=== PATIENT | male | born 1955 | race Caucasian/White ===

== ENCOUNTER 2017-07-16 11:23 | Emergency (ER) | payer OTHER, SELFPAY ==
[2017-07-16 11:35] VITALS: BP 166/89; PULSE 79; RESP 18; TEMP 36.8; O2SAT 100
--- NOTE | 2017-07-16 11:46 | ED_ITS ---
HPI - Chest Pain General Chief Complaint: Chest Pain Stated Complaint: POSSIBLE HEART ATTACK Time Seen by Provider: 07/16/17 11:46 Source: patient Mode of arrival: ambulatory Limitations: no limitations History of Present Illness HPI narrative: 62-year-old male with a history of coronary artery disease status post 3 stents the most recent of which was placed between 4 and 5 years ago presents with an episode of chest pain, dizziness, diaphoresis, and mild nausea that started yesterday morning and lasted for approximately 15 min while at work. He was not exerting himself. The symptoms resolved on their own without intervention. He had an episode of chest pain previously and was evaluated, and after stress test the pain was blamed on a hiatal hernia. He also notes that at work several people have been ill and he wondered if he could be ill himself. Upon awakening this morning and not feeling any flu-like symptoms he became more concerned about his heart. He has not had any recurrence of his symptoms. He has a strong preference not to be in the hospital today. His last stress test was at least 2 years ago. He follows with product development carpenter in [place]. He admits to being an active smoker and drinker. He denies a history of hyperlipidemia or hypertension but is on metoprolol and Lipitor due to his heart attack. He is also on a baby aspirin. The chest pain began on the right side yesterday. Related Data Previous Rx's Medication Instructions Recorded atorvastatin [Lipitor] 80 mg PO QDAY #90 tab 10/02/16 metoprolol tartrate 25 mg PO BID #180 tab 10/02/16 Review of Systems Review of Systems All systems reviewed & are unremarkable except as noted in HPI and below Constitutional Denies chills, Denies fever(s), Denies lethargy and Denies weakness Eyes Denies change in vision, Denies eye discharge, Denies irritation and Denies loss of vision ENT Ears, Nose, Mouth, and Throat: Denies change in voice, Denies neck pain and Denies sore throat Cardiovascular Reports chest pain, Reports chest pain at rest, Reports diaphoresis, Denies irregular heart rhythm, Reports lightheadedness, Denies palpitations, Denies dyspnea, Denies dyspnea on exertion and Denies orthopnea Respiratory Denies cough, Denies dyspnea, Denies dyspnea on exertion and Denies wheezing Gastrointestinal Gastrointestinal: Denies abdominal pain, Denies change in bowel habits, Denies diarrhea, Reports nausea and Denies vomiting Genitourinary Denies hematuria, Denies flank pain, Denies urinary incontinence and Denies urinary urgency Musculoskeletal Denies neck pain Integumentary/Breasts Denies pruritus, Denies erythema, Denies rash and Denies wounds Neurologic Denies confusion, Denies loss of vision and Denies weakness Psychiatric Denies anxiety, Denies confusion, Denies depression, Denies homicidal ideation and Denies suicidal ideation Endocrine Denies palpitations Hematologic/Lymphatic Denies easy bruising Allergic/Immunologic Denies wheezing PFSH Surgical History Status post rotator cuff repair Family History Mother Age: 90 Heart attack Social History Smoking Status: Current every day smoker Exam Initial Vital Signs Initial Vital Signs: Vital Signs Temperature 98.3 F 07/16/17 11:35 Pulse Rate 79 07/16/17 11:35 Respiratory Rate 18 07/16/17 11:35 Blood Pressure 166/89 H 07/16/17 11:35 Pulse Oximetry 100 07/16/17 11:35 Const General: cooperative and well developed Nutritional Appearance: well nourished Orientation: alert, awake, oriented x3 and not confused [facility] Head: normocephalic and atraumatic Ears: external ears normal and TM's normal bilaterally Nose: external nose normal and No nasal discharge Face and sinus: sinuses nontender, face symmetric, no sinus tenderness and No dry mucous membranes Mouth: oral mucosae normal and moist mucous membranes Teeth and gingiva: dentition normal Throat: tonsils normal and uvula midline Eyes General: appearance normal, both eyes and all related structures Eyelids: eyelids normal Conjunctivae: conjunctivae normal Sclera: sclerae normal Pupils: PERRL EOM: EOM intact bilaterally Neck Neck: normal visual inspection, trachea midline, No lymphadenopathy, No midline deformity and No JVD Lymphatic: No lymphedema Chest Chest: normal inspection of the chest Resp Effort & Inspection: normal respiratory effort, able to speak in complete sentences, no respiratory distress and no use of accessory muscles Auscultation: clear to auscultation bilaterally, no rales, no rhonchi and no wheezes Cardio Rate: regular rate Rhythm: regular rhythm Heart Sounds: no click, no gallops, no murmurs and no rubs Pulses: normal peripheral pulses GI Inspection: non-distended Palpation: soft, no hepatosplenomegaly, No guarding, No pulsatile mass and No tender Auscultation: normal bowel sounds Back/Spine/Pelvis Back: No CVA tenderness Cervical Spine: cervical ROM normal and No pain with cervical ROM Thoracic/Lumbar Spine: thoracic and lumbar spine normal to inspection Skin General: no rashes or lesions noted, No jaundice and No petechiae Neuro General: alert, oriented x3, gait normal and no focal motor deficits Speech: speech normal Extrem General: full ROM, no clubbing, cyanosis or edema, no pedal edema and no calf tenderness Psych Appearance: well kempt Mental Status: mental status grossly normal Attitude: cooperative Thought Content: normal and suicidality Judgment: judgment good Course Orders Ordered: ED Orders 07/16/17 11:47 CMP [Comprehensive Metabolic Panel] Stat Troponin with CK Cardiac Panel Stat 07/16/17 13:03 XR chest 2V Stat Vital Signs - 8 hr 07/16/17 11:35 07/16/17 12:48 07/16/17 13:37 Temperature 98.3 F Pulse Rate 79 77 77 Respiratory Rate 18 16 17 Blood Pressure 166/89 H Blood Pressure [Left Arm] 107/83 H 111/80 Pulse Oximetry 100 95 99 07/16/17 14:01 Temperature Pulse Rate 75 Respiratory Rate 16 Blood Pressure Blood Pressure [Left Arm] 121/83 H Pulse Oximetry 99 MDM - Chest Pain Differential Diagnosis Likely pneumothorax, stable angina, unstable angina pectoris, atypical chest pain and chest pain Lab Data Result diagrams: 07/16/17 11:47 Lab Results 07/16/17 Range/Units 11:47 Sodium 142 (137-145) mmol/L Potassium 4.2 (3.4-5.1) mmol/L Chloride 102 (98-107) mmol/L Carbon Dioxide 28 (22-32) mmol/L BUN 9 (9-20) mg/dL Creatinine 0.60 L (0.66-1.25) mg/dL Estimated GFR > 60.0 (>60) mL/min BUN/Creatinine Ratio 15.0 (6-22) Glucose 103 (80-110) mg/dL Calcium 9.8 (8.4-10.2) mg/dL Total Bilirubin 0.9 (0.2-1.3) mg/dL AST 44 (17-59) IU/L ALT 37 (21-72) IU/L Alkaline Phosphatase 82 (38-126) U/L Total Creatine Kinase 101 (55-170) U/L CK-MB (CK-2) 1.81 (<2.37) ng/mL CK-MB (CK-2) Rel Index 1.8 (1.5-5.0) % Troponin I < 0.012 (0.01-0.034) ng/mL Total Protein 7.7 (6.3-8.2) g/dL Albumin 4.7 (3.5-5.0) g/dL Globulin 3.0 (1.7-4.1) g/dL Albumin/Globulin Ratio 1.6 (1.0-2.8) Imaging Data Chest x-ray: Radiologist's impression: PROCEDURE: XR CHEST 2V INDICATIONS: chest pain TECHNIQUE: 2 views of the chest were acquired. COMPARISON: [facility], CHEST 1 VIEW, 06/08/2008, 15:53. FINDINGS: Surgical changes and devices: None. Lungs and pleura: No pleural effusions or pneumothorax. Lungs are clear. Mediastinum: Mediastinal contours are normal. Heart size is normal. Bones and chest wall: No suspicious bony abnormalities. Soft tissues appear unremarkable. IMPRESSION: Negative chest. Dictated by: Shahzad Dewitt M.D. on 07/16/2017 at 13:40 Approved by: Shahzad Dewitt M.D. on 07/16/2017 at 13:43 ECG Data Attestation: I personally reviewed and interpreted this ECG as follows: Prior ECG tracings: available for review Interpretation: EKG performed at 11:30 a.m. shows sinus rhythm with a rate of 76. Borderline prolonged [place] interval at 214. No ST elevation or depression. No inverted or abnormal T-waves. No acute ischemia. When compared with previous EKG dated 06/08/08 no significant change MDM Narrative Medical decision making narrative: His cardiac risk score puts him in the moderate category. Even though his troponin EKG are negative here, he has had no active chest pain for 24 hr. He needs an updated stress test and I offered and strongly encouraged that he stay in the hospital to have this performed. He refused to do so and I called his product development carpenter to arrange close follow-up. No evidence of infection today. Dr. Boles , a partner of his product development carpenter who I spoke with will arrange for follow-up stress test in the next couple of days. He agrees patient can be discharged. I discussed the plan for follow-up with patient. All questions answered. Discharge Plan Departure Patient Disposition: Home, Self-Care Clinical Impression: Chest pain Instructions: DI for Chest Pain Activity Restrictions/Additional Instructions: Thank you for trusting is with your care today. Your symptoms from yesterday are concerning for possible cardiac related cause. Because of this you need to have a stress test done in short order in the next couple of days. Dr. Boles is going to arrange for this and you should expect a call later today or tomorrow to set this up. Return to the ER for new or worsening symptoms. Prescriptions: No Action atorvastatin [Lipitor] 80 MG tablet 80 mg PO QDAY Qty: 90 RF: 3 metoprolol tartrate 25 MG tablet 25 mg PO BID Qty: 180 RF: 3 Referrals: dEuar Lara MD [Primary Care Provider] - Chino Boles MD [Non-Staff] -
[2017-07-16 12:07] LABS: Alanine Aminotransferase 37 IU/L (21-72); Albumin 4.7 g/dL (3.5-5.0); Albumin Globulin Ratio 1.6 (1.0-2.8); Alkaline Phosphatase 82 U/L (38-126); Aspartate Aminotransferase 44 IU/L (17-59); Bilirubin Total 0.9 mg/dL (0.2-1.3); Blood Urea Nitrogen 9 mg/dL (9-20); Calcium 9.8 mg/dL (8.4-10.2); Carbon Dioxide 28 mmol/L (22-32); Chloride 102 mmol/L (98-107); Creatine Kinase 101 U/L (55-170); Estimated Glomerular Filt Rate > 60.0 mL/min (>60); Glucose 103 mg/dL (80-110); HEMOLYSIS 21 (0-50); Potassium 4.2 mmol/L (3.4-5.1); Sodium 142 mmol/L (137-145); Total Protein 7.7 g/dL (6.3-8.2)
[2017-07-16 12:23] LABS: CKMB % Relative Index 1.8 % (1.5-5.0); Creatine Kinase MB 1.81 ng/mL (<2.37)
[2017-07-16 12:29] LABS: Troponin I < 0.012 ng/mL (0.01-0.034)
[2017-07-16 12:48] VITALS: BP 107/83; PULSE 77; RESP 16; O2SAT 95
--- NOTE | 2017-07-16 13:03 | DI.RAD.S_ITS ---
PROCEDURE: XR CHEST 2V INDICATIONS: chest pain TECHNIQUE: 2 views of the chest were acquired. COMPARISON: [facility], , CHEST 1 VIEW, 06/08/2008, 15:53. FINDINGS: Surgical changes and devices: None. Lungs and pleura: No pleural effusions or pneumothorax. Lungs are clear. Mediastinum: Mediastinal contours are normal. Heart size is normal. Bones and chest wall: No suspicious bony abnormalities. Soft tissues appear unremarkable. IMPRESSION: Negative chest. Dictated by: Shahzad Dewitt M.D. on 07/16/2017 at 13:40 Approved by: Shahzad Dewitt M.D. on 07/16/2017 at 13:43
[2017-07-16 13:37] VITALS: BP 111/80; PULSE 77; RESP 17; O2SAT 99
[2017-07-16 14:01] VITALS: BP 121/83; PULSE 75; RESP 16; O2SAT 99
[2017-07-16 14:25] VITALS: BP 121/83; PULSE 82; RESP 18; O2SAT 99
== END 2017-07-16 14:25 | disposition home or self-care (01) ==
PROVIDERS: Emergency Provider Emergency Medicine; Family Provider Family Medicine; PCP Family Medicine
DX: R07.89 Other chest pain (principal)
CPT/HCPCS: 36591; 71046; 80053; 82550; 82553; 84484; 93005; 93041; 99283; 99285

== ENCOUNTER → 2017-10-07 13:48 | Outpatient (CLI) | payer OTHER, SELFPAY ==
[2017-10-07 14:37] LABS: Add Manual Diff / Slide Review NO; Basophils Percent Auto 0.8 % (0-2); Eosinophils Percent Auto 1.1 % (2-4); Hematocrit 41.9 % (41-53); Hemoglobin 14.9 g/dL (13.5-17.5); Lymphocytes Percent Auto 22.4 % (25-40); Mean Corpuscular HGB Conc 35.6 % (30-36); Mean Corpuscular Hemoglobin 35.1 PG (26-34); Mean Corpuscular Volume 98.7 fL (80-100); Monocytes Percent Auto 10.5 % (3-14); Neutrophils Absolute Auto 4400 /uL (3000-5900); Neutrophils Percent Auto 65.2 % (50-75); Platelet Count 167 X10^3/uL (150-400); Red Blood Cell Count 4.25 X10^6/uL (4.5-5.9); Red Cell Distribution Width 13.6 % (11.6-14.8); White Blood Cell Count 6.8 X10^3/uL (4.5-11.0)
[2017-10-07 15:26] LABS: Alanine Aminotransferase 36 IU/L (21-72); Albumin 4.6 g/dL (3.5-5.0); Albumin Globulin Ratio 1.8 (1.0-2.8); Alkaline Phosphatase 87 U/L (38-126); Aspartate Aminotransferase 40 IU/L (17-59); BUN Creatinine Ratio 18.8 (6-22); Blood Urea Nitrogen 15 mg/dL (9-20); Calcium 10.1 mg/dL (8.4-10.2); Carbon Dioxide 28 mmol/L (22-32); Chloride 102 mmol/L (98-107); Estimated Glomerular Filt Rate > 60.0 mL/min (>60); Globulin 2.5 g/dL (1.7-4.1); Glucose 93 mg/dL (80-110); HEMOLYSIS < 15 (0-50); Lipase 273 U/L (23-300); Potassium 5.2 mmol/L (3.4-5.1); Sodium 141 mmol/L (137-145); Total Protein 7.1 g/dL (6.3-8.2)
== END ==
PROVIDERS: Family Provider Family Medicine; PCP Family Medicine; Visit Provider Registered Nurse
DX: R10.84 Generalized abdominal pain (principal)
CPT/HCPCS: 36415; 80053; 83013; 83690; 85025

== ENCOUNTER 2018-01-21 13:04 | Emergency (ER) | payer OTHER, SELFPAY ==
[2018-01-21 13:09] VITALS: BP 152/93; PULSE 70; RESP 14; TEMP 36.6; O2SAT 100
--- NOTE | 2018-01-21 13:11 | DI.RAD.S_ITS ---
PROCEDURE: XR CHEST 1V INDICATIONS: chest pain, presyncope TECHNIQUE: One view of the chest was acquired. COMPARISON: [facility], CR, XR CHEST 2V, 07/16/2017, 12:52. FINDINGS: Surgical changes and devices: None. Lungs and pleura: No pleural effusions or pneumothorax. Lungs are clear. Mediastinum: Mediastinal contours appear normal. Heart size is normal. Bones and chest wall: No suspicious bony lesions. Overlying soft tissues appear unremarkable. IMPRESSION: No acute cardiopulmonary disease. Dictated by: Audi Gamez M.D. on 01/21/2018 at 13:35 Approved by: Audi Gamez M.D. on 01/21/2018 at 13:36
[2018-01-21 13:17] LABS: Add Manual Diff / Slide Review NO; Basophils Percent Auto 0.9 % (0-2); Eosinophils Percent Auto 0.9 % (2-4); Hematocrit 45.2 % (41-53); Hemoglobin 15.7 g/dL (13.5-17.5); Lymphocytes Percent Auto 27.5 % (25-40); Mean Corpuscular HGB Conc 34.8 % (30-36); Mean Corpuscular Hemoglobin 34.6 PG (26-34); Mean Corpuscular Volume 99.3 fL (80-100); Monocytes Percent Auto 11.2 % (3-14); Neutrophils Absolute Auto 4100 /uL (3000-5900); Neutrophils Percent Auto 59.5 % (50-75); Platelet Count 143 X10^3/uL (150-400); Red Blood Cell Count 4.55 X10^6/uL (4.5-5.9); White Blood Cell Count 6.8 X10^3/uL (4.5-11.0)
[2018-01-21 13:26] LABS: Alanine Aminotransferase 46 IU/L (21-72); Albumin 4.9 g/dL (3.5-5.0); Albumin Globulin Ratio 1.7 (1.0-2.8); Alkaline Phosphatase 80 U/L (38-126); Aspartate Aminotransferase 52 IU/L (17-59); Bilirubin Total 0.9 mg/dL (0.2-1.3); Blood Urea Nitrogen 14 mg/dL (9-20); Calcium 10.1 mg/dL (8.4-10.2); Carbon Dioxide 24 mmol/L (22-32); Chloride 102 mmol/L (98-107); Creatine Kinase 147 U/L (55-170); Estimated Glomerular Filt Rate > 60.0 mL/min (>60); Globulin 2.9 g/dL (1.7-4.1); Glucose 100 mg/dL (80-110); Lipase 299 U/L (23-300); Potassium 4.4 mmol/L (3.4-5.1); Sodium 141 mmol/L (137-145); Total Protein 7.8 g/dL (6.3-8.2)
[2018-01-21 13:35] VITALS: BP 145/87; PULSE 76; RESP 15; O2SAT 96
[2018-01-21 13:37] LABS: Troponin I < 0.012 ng/mL (0.01-0.034)
[2018-01-21 13:41] LABS: CKMB % Relative Index 1.3 % (1.5-5.0); Creatine Kinase MB 1.93 ng/mL (<2.37); HEMOLYSIS 25 (0-50)
[2018-01-21] MEDS: SODIUM CHLORIDE 0.9% 1,000 ML 1000 ML IV (13:57)
[2018-01-21 14:10] VITALS: BP 142/78; PULSE 73; RESP 10; O2SAT 98
[2018-01-21 14:35] VITALS: BP 154/82; PULSE 72; RESP 17; O2SAT 100
--- NOTE | 2018-01-21 14:45 | ED.SYNCOPE ---
HPI - Syncope General Chief Complaint: Syncope Stated Complaint: stroke sympotums now resolved Time Seen by Provider: 01/21/18 13:11 Source: patient and EMS Mode of arrival: EMS Limitations: no limitations History of Present Illness HPI narrative: Patient is a 62-year-old male presenting after a near syncopal episode. He was at no work at his desk when a co-worker saw him slumped over. They had a difficult time understanding what he was saying that this lasted for very brief amount of time. He said that he felt like he was going to pass out he knew it was going to happen. He had some tunnel vision and blackening of vision he felt his face get very flushed. He had no chest pain heart palpitations. He felt extremely lightheaded. He maybe had some tremors with his hands but did not overall have tonic-clonic movements. No urinary or stool incontinence. He says he has been eating frequently and drinking enough fluid. He did not actually pass out but just felt faint. MD complaint: felt faint and almost passed out Related Data Home Medications Medication Instructions Recorded Confirmed aspirin 81 mg tablet,delayed 81 mg PO DAILY 09/10/17 01/21/18 release lactobacillus combination no.8 3 3,000 mmu cells PO DAILY 11/19/17 01/21/18 billion cell capsule aspirin 325 mg PO .ONCE 01/21/18 01/21/18 atorvastatin [Lipitor] 80 mg PO DAILY 01/21/18 01/21/18 metoprolol tartrate 50 mg PO DAILY 01/21/18 01/21/18 Allergies Allergy/AdvReac Type Severity Reaction Status Date / Time No Known Drug Allergies Allergy Verified 01/21/18 13:12 Review of Systems Review of Systems All systems reviewed & are unremarkable except as noted in HPI and below Constitutional Denies chills, Denies fever(s), Denies headache(s), Denies lethargy and Denies weakness ENT Ears, Nose, Mouth, and Throat: Denies change in voice, Denies dizziness, Denies headache(s), Denies neck pain and Denies sore throat Cardiovascular Reports as per HPI, Denies chest pain, Denies pedal edema, Denies radiating jaw, neck or arm pain, Denies dyspnea and Denies dyspnea on exertion Respiratory Denies cough, Denies dyspnea, Denies dyspnea on exertion and Denies wheezing Gastrointestinal Gastrointestinal: Denies abdominal pain, Denies change in bowel habits, Denies diarrhea, Denies nausea and Denies vomiting Genitourinary Denies hematuria, Denies flank pain, Denies urinary incontinence and Denies urinary urgency Musculoskeletal Denies abnormal gait, Denies myalgias and Denies neck pain Integumentary/Breasts Denies pruritus, Denies erythema, Denies rash and Denies wounds Neurologic Reports as per HPI, Denies abnormal gait, Denies behavioral changes, Denies confusion, Denies dizziness, Denies headache(s), Denies focal weakness, Denies convulsions, Reports tremor(s) and Denies weakness Psychiatric Denies behavioral changes and Denies confusion Allergic/Immunologic Denies wheezing PFSH Medical History CAD (coronary artery disease) (Chronic) Shoulder pain (Chronic) Chicken pox (Resolved 1966) Heart attack (Resolved 2008) Measles (Resolved ~1969) Surgical History Anesthesia (Resolved) History of heart artery stent (Resolved 2008) Status post rotator cuff repair (Resolved) Family History Mother Age: 91 Heart attack Brother No problems noted. Father Cancer Sister No problems noted. Social History Smoking Status: Current every day smoker Exam Initial Vital Signs Initial Vital Signs: Vital Signs Temperature 97.9 F 01/21/18 13:09 Pulse Rate 70 01/21/18 13:09 Respiratory Rate 14 01/21/18 13:09 Blood Pressure 152/93 H 01/21/18 13:09 Pulse Oximetry 100 01/21/18 13:09 GENERAL: Alert well-appearing male no acute distress alert oriented x3 HEENT: Head atraumatic,EOMI, pupils reactive, face symmetric, moist mucous membranes CARDIOVASCULAR: Regular rate and rhythm without murmurs, rubs or gallops. RESPIRATORY: Breath sounds equal bilaterally, no wheezes rales or rhonchi. ABDOMEN: Soft, nontender. Normoactive bowel sounds all 4 quadrants. No guarding or rebound. EXTREMITIES: Normal range of motion, no clubbing or edema. Neurovascularly intact NEUROLOGICAL: Alert and oriented x4.Normal gait and speech. Cranial nerves II through XII grossly intact. Good [id number], good [id number], strength equal bilaterally, no dysarthria or aphasia, sensation in tact to soft touch bilaterally, no visual changes, no facial droop SKIN: Warm, dry, no laceration, no petechiae, no rashes or lesions. Scores NIH Stroke Scale Level of Conciousness: Alert, keenly responsive Ask month/age: Answers both questions correctly. Open/close eyes, close hand: Performs both tasks correctly Best gaze horizontal: Normal Visual salcido: No visual loss Facial palsy: Normal symetrical movement Left arm drift: No drift for full 10 sec Right arm drift: No drift for full 10 sec Left leg drift: No drift for full 10 sec Right leg drift: No drift for full 10 sec Limb ataxia: Absent Sensory on face/arms/legs: Normal, no sensory loss Best language: No aphasia, normal Dysarthria: Normal Extinction or inattention: No abnormality Total NIH Stroke scale score: 0 Course Orders Ordered: ED Orders 01/21/18 13:00 Complete Blood Count AUTO DIFF Stat Comprehensive Metabolic Panel Stat Lipase Stat Troponin & CK Cardiac Panel Stat 01/21/18 13:11 XR chest 1V Stat EKG-12 Lead Stat Discontinued Medications Sodium Chloride (Normal Saline 0.9%) 1,000 mls @ 1,000 mls/hr IV CONT TRES Last Infusion: 01/21/18 15:43 Dose: 0 mls/hr Admin: 01/21/18 13:57 Dose: 1,000 mls/hr Vital Signs - 8 hr 01/21/18 13:09 01/21/18 13:35 01/21/18 14:10 Temperature 97.9 F Pulse Rate 70 76 73 Respiratory Rate 14 15 10 L Blood Pressure 152/93 H Blood Pressure [Left Arm] 145/87 H 142/78 H Pulse Oximetry 100 96 98 01/21/18 14:35 01/21/18 15:05 Temperature Pulse Rate 72 72 Respiratory Rate 17 17 Blood Pressure Blood Pressure [Left Arm] 154/82 H 148/82 H Pulse Oximetry 100 98 MDM - Syncope Lab Data Attestation: I reviewed the patient's lab results. Result diagrams: 01/21/18 13:00 01/21/18 13:00 Lab Results 01/21/18 01/21/18 Range/Units 13:00 13:00 WBC 6.8 (4.5-11.0) X10^3/uL RBC 4.55 (4.5-5.9) X10^6/uL Hgb 15.7 (13.5-17.5) g/dL Hct 45.2 (41-53) % MCV 99.3 (80-100) fL MCH 34.6 H (26-34) PG MCHC 34.8 (30-36) % RDW 14.0 (11.6-14.8) % Plt Count 143 L (150-400) X10^3/uL Neut % (Auto) 59.5 (50-75) % Lymph % (Auto) 27.5 (25-40) % [place] % (Auto) 11.2 (3-14) % Eos % (Auto) 0.9 L (2-4) % Baso % (Auto) 0.9 (0-2) % Neut # (Auto) 4100 (0049-8429) /uL Sodium 141 (137-145) mmol/L Potassium 4.4 (3.4-5.1) mmol/L Chloride 102 (98-107) mmol/L Carbon Dioxide 24 (22-32) mmol/L BUN 14 (9-20) mg/dL Creatinine 0.70 (0.66-1.25) mg/dL Estimated GFR > 60.0 (>60) mL/min BUN/Creatinine Ratio 20.0 (6-22) Glucose 100 (80-110) mg/dL Calcium 10.1 (8.4-10.2) mg/dL Total Bilirubin 0.9 (0.2-1.3) mg/dL AST 52 (17-59) IU/L ALT 46 (21-72) IU/L Alkaline Phosphatase 80 (38-126) U/L Total Creatine Kinase 147 (55-170) U/L CK-MB (CK-2) 1.93 (<2.37) ng/mL CK-MB (CK-2) Rel Index 1.3 L (1.5-5.0) % Troponin I < 0.012 (0.01-0.034) ng/mL Total Protein 7.8 (6.3-8.2) g/dL Albumin 4.9 (3.5-5.0) g/dL Globulin 2.9 (1.7-4.1) g/dL Albumin/Globulin Ratio 1.7 (1.0-2.8) Lipase 299 (23-300) U/L Point of Care Testing Glucose POC 127 Urine Dip Bedside Urine Glucose Negative Bedside Urine Bilirubin - Negative Bedside Urine Ketone - Negative Urine Specific [place] 1.015 Bedside Urine Occult Blood - Negative Bedside Urine pH 7.5 Bedside Urine Protein - Negative Bedside Urine Urobilinogen - Negative Bedside Urine Nitrite - Negative Bedside Urine Leukocytes - Negative Esterase Imaging Data Chest x-ray: Radiologist's impression: [place] [id number] [place] [id number] XRay Report Signed Patient: Lyndon Antonio EMR#: [id number] : 7Acct:[id number] Age/Sex: 62 / MDate of Service: 01/21/18 Loc: ED Accession Number: [id number] Procedure: XR chest 1V Ordering Provider: Ara ePdroza D.O. PROCEDURE: XR CHEST 1V INDICATIONS: chest pain, presyncope TECHNIQUE: One view of the chest was acquired. COMPARISON: [facility], , XR CHEST 2V, 07/16/2017, 12:52. FINDINGS: Surgical changes and devices: None. Lungs and pleura: No pleural effusions or pneumothorax. Lungs are clear. Mediastinum: Mediastinal contours appear normal. Heart size is normal. Bones and chest wall: No suspicious bony lesions. Overlying soft tissues appear unremarkable. IMPRESSION: No acute cardiopulmonary disease. Dictated by: Audi Gamez M.D. on 01/21/2018 at 13:35 Approved by: Audi Gamez M.D. on 01/21/2018 at 13:36 ECG Data Attestation: I personally reviewed and interpreted this ECG as follows: Prior ECG tracings: available for review Interpretation: Normal sinus rhythm rate 73 NE interval to 15, previous NE interval also increased. 1st degree AV block QRS 89, no ST changes no T-wave inversions similar to previous EKG MDM Narrative Medical decision making narrative: Patient's signs and symptoms consistent with a vasovagal episode. He had tunnel vision near-syncope but did not actually pass out. He has a persistent 1st degree AV block. He is ambulatory in the ED feels ready and able to go home. No neurologic deficits to suggest that he needs a head CT. at bedside. I have reviewed findings with her as well. Discharge Plan Departure Patient Disposition: Home Clinical Impression: Vasovagal syncope Discharge Date/Time: 01/21/18 16:02 Interventions: ED Discharge Assessment Last Done: 01/21/18 16:02 Instructions: DI for Syncope in Adults (Fainting) Activity Restrictions/Additional Instructions: *You have been diagnosed with fainting episode *What to do: Blood work x-ray are reassuring today. He likely had a fainting episode. Increase fluid intake eat small frequent meals *Continue to take medications as directed *Follow up with your primary care provider in 2-3 days *Return to ER if you should have recurrent episodes, passing out chest pain, heart palpitations or any new, worsening or concerning symptoms Prescriptions: No Action aspirin [Adult Low Dose Aspirin] 81 mg tablet,delayed release (DR/EC) 81 mg PO DAILY RF: 0 lactobacillus combination no.8 [Adult Probiotic] 3 billion cell capsule 3,000 mmu cells PO DAILY RF: 0 aspirin 325 mg Tablet 325 mg PO .ONCE RF: 0 atorvastatin [Lipitor] 80 mg tablet 80 mg PO DAILY RF: 0 metoprolol tartrate 25 mg tablet 50 mg PO DAILY RF: 0 Referrals: Eduar Lara MD [Primary Care Provider] -
[2018-01-21 15:05] VITALS: BP 148/82; PULSE 72; RESP 17; O2SAT 98
--- NOTE | 2018-01-21 18:47 | ED_ITS ---
HPI - Syncope General Chief Complaint: Syncope Stated Complaint: stroke sympotums now resolved Time Seen by Provider: 01/21/18 13:11 Source: patient and EMS Mode of arrival: EMS Limitations: no limitations History of Present Illness HPI narrative: Patient is a 62-year-old male presenting after a near syncopal episode. He was at no work at his desk when a co-worker saw him slumped over. They had a difficult time understanding what he was saying that this lasted for very brief amount of time. He said that he felt like he was going to pass out he knew it was going to happen. He had some tunnel vision and blackening of vision he felt his face get very flushed. He had no chest pain heart palpitations. He felt extremely lightheaded. He maybe had some tremors with his hands but did not overall have tonic-clonic movements. No urinary or stool incontinence. He says he has been eating frequently and drinking enough fluid. He did not actually pass out but just felt faint. MD complaint: felt faint and almost passed out Related Data Home Medications Medication Instructions Recorded Confirmed aspirin 81 mg tablet,delayed 81 mg PO DAILY 09/10/17 01/21/18 release lactobacillus combination no.8 3 3,000 mmu cells PO DAILY 11/19/17 01/21/18 billion cell capsule aspirin 325 mg PO .ONCE 01/21/18 01/21/18 atorvastatin [Lipitor] 80 mg PO DAILY 01/21/18 01/21/18 metoprolol tartrate 50 mg PO DAILY 01/21/18 01/21/18 Allergies Allergy/AdvReac Type Severity Reaction Status Date / Time No Known Drug Allergies Allergy Verified 01/21/18 13:12 Review of Systems Review of Systems All systems reviewed & are unremarkable except as noted in HPI and below Constitutional Denies chills, Denies fever(s), Denies headache(s), Denies lethargy and Denies weakness ENT Ears, Nose, Mouth, and Throat: Denies change in voice, Denies dizziness, Denies headache(s), Denies neck pain and Denies sore throat Cardiovascular Reports as per HPI, Denies chest pain, Denies pedal edema, Denies radiating jaw , neck or arm pain, Denies dyspnea and Denies dyspnea on exertion Respiratory Denies cough, Denies dyspnea, Denies dyspnea on exertion and Denies wheezing Gastrointestinal Gastrointestinal: Denies abdominal pain, Denies change in bowel habits, Denies diarrhea, Denies nausea and Denies vomiting Genitourinary Denies hematuria, Denies flank pain, Denies urinary incontinence and Denies urinary urgency Musculoskeletal Denies abnormal gait, Denies myalgias and Denies neck pain Integumentary/Breasts Denies pruritus, Denies erythema, Denies rash and Denies wounds Neurologic Reports as per HPI, Denies abnormal gait, Denies behavioral changes, Denies confusion, Denies dizziness, Denies headache(s), Denies focal weakness, Denies convulsions, Reports tremor(s) and Denies weakness Psychiatric Denies behavioral changes and Denies confusion Allergic/Immunologic Denies wheezing PFSH Medical History CAD (coronary artery disease) (Chronic) Shoulder pain (Chronic) Chicken pox (Resolved 1966) Heart attack (Resolved 2008) Measles (Resolved ~1969) Surgical History Anesthesia (Resolved) History of heart artery stent (Resolved 2008) Status post rotator cuff repair (Resolved) Family History Mother Age: 91 Heart attack Brother No problems noted. Father Cancer Sister No problems noted. Social History Smoking Status: Current every day smoker Exam Initial Vital Signs Initial Vital Signs: Vital Signs Temperature 97.9 F 01/21/18 13:09 Pulse Rate 70 01/21/18 13:09 Respiratory Rate 14 01/21/18 13:09 Blood Pressure 152/93 H 01/21/18 13:09 Pulse Oximetry 100 01/21/18 13:09 GENERAL: Alert well-appearing male no acute distress alert oriented x3 HEENT: Head atraumatic,EOMI, pupils reactive, face symmetric, moist mucous membranes CARDIOVASCULAR: Regular rate and rhythm without murmurs, rubs or gallops. RESPIRATORY: Breath sounds equal bilaterally, no wheezes rales or rhonchi. ABDOMEN: Soft, nontender. Normoactive bowel sounds all 4 quadrants. No guarding or rebound. EXTREMITIES: Normal range of motion, no clubbing or edema. Neurovascularly intact NEUROLOGICAL: Alert and oriented x4.Normal gait and speech. Cranial nerves II through XII grossly intact. Good [id number], good [id number], strength equal bilaterally, no dysarthria or aphasia, sensation in tact to soft touch bilaterally, no visual changes, no facial droop SKIN: Warm, dry, no laceration, no petechiae, no rashes or lesions. Scores NIH Stroke Scale Level of Conciousness: Alert, keenly responsive Ask month/age: Answers both questions correctly. Open/close eyes, close hand: Performs both tasks correctly Best gaze horizontal: Normal Visual salcido: No visual loss Facial palsy: Normal symetrical movement Left arm drift: No drift for full 10 sec Right arm drift: No drift for full 10 sec Left leg drift: No drift for full 10 sec Right leg drift: No drift for full 10 sec Limb ataxia: Absent Sensory on face/arms/legs: Normal, no sensory loss Best language: No aphasia, normal Dysarthria: Normal Extinction or inattention: No abnormality Total NIH Stroke scale score: 0 Course Orders Ordered: ED Orders 01/21/18 13:00 Complete Blood Count AUTO DIFF Stat Comprehensive Metabolic Panel Stat Lipase Stat Troponin & CK Cardiac Panel Stat 01/21/18 13:11 XR chest 1V Stat EKG-12 Lead Stat Discontinued Medications Sodium Chloride (Normal Saline 0.9%) 1,000 mls @ 1,000 mls/hr IV CONT TRES Last Infusion: 01/21/18 15:43 Dose: 0 mls/hr Admin: 01/21/18 13:57 Dose: 1,000 mls/hr Vital Signs - 8 hr 01/21/18 13:09 01/21/18 13:35 01/21/18 14:10 Temperature 97.9 F Pulse Rate 70 76 73 Respiratory Rate 14 15 10 L Blood Pressure 152/93 H Blood Pressure [Left Arm] 145/87 H 142/78 H Pulse Oximetry 100 96 98 01/21/18 14:35 01/21/18 15:05 Temperature Pulse Rate 72 72 Respiratory Rate 17 17 Blood Pressure Blood Pressure [Left Arm] 154/82 H 148/82 H Pulse Oximetry 100 98 MDM - Syncope Lab Data Attestation: I reviewed the patient's lab results. Result diagrams: 01/21/18 13:00 01/21/18 13:00 Lab Results 01/21/18 01/21/18 Range/Units 13:00 13:00 WBC 6.8 (4.5-11.0) X10^3/uL RBC 4.55 (4.5-5.9) X10^6/uL Hgb 15.7 (13.5-17.5) g/dL Hct 45.2 (41-53) % MCV 99.3 (80-100) fL MCH 34.6 H (26-34) PG MCHC 34.8 (30-36) % RDW 14.0 (11.6-14.8) % Plt Count 143 L (150-400) X10^3/uL Neut % (Auto) 59.5 (50-75) % Lymph % (Auto) 27.5 (25-40) % Scurry % (Auto) 11.2 (3-14) % Eos % (Auto) 0.9 L (2-4) % Baso % (Auto) 0.9 (0-2) % Neut # (Auto) 4100 (2971-3530) /uL Sodium 141 (137-145) mmol/L Potassium 4.4 (3.4-5.1) mmol/L Chloride 102 (98-107) mmol/L Carbon Dioxide 24 (22-32) mmol/L BUN 14 (9-20) mg/dL Creatinine 0.70 (0.66-1.25) mg/dL Estimated GFR > 60.0 (>60) mL/min BUN/Creatinine Ratio 20.0 (6-22) Glucose 100 (80-110) mg/dL Calcium 10.1 (8.4-10.2) mg/dL Total Bilirubin 0.9 (0.2-1.3) mg/dL AST 52 (17-59) IU/L ALT 46 (21-72) IU/L Alkaline Phosphatase 80 (38-126) U/L Total Creatine Kinase 147 (55-170) U/L CK-MB (CK-2) 1.93 (<2.37) ng/mL CK-MB (CK-2) Rel Index 1.3 L (1.5-5.0) % Troponin I < 0.012 (0.01-0.034) ng/mL Total Protein 7.8 (6.3-8.2) g/dL Albumin 4.9 (3.5-5.0) g/dL Globulin 2.9 (1.7-4.1) g/dL Albumin/Globulin Ratio 1.7 (1.0-2.8) Lipase 299 (23-300) U/L Point of Care Testing Glucose POC 127 Urine Dip Bedside Urine Glucose Negative Bedside Urine Bilirubin - Negative Bedside Urine Ketone - Negative Urine Specific [place] 1.015 Bedside Urine Occult Blood - Negative Bedside Urine pH 7.5 Bedside Urine Protein - Negative Bedside Urine Urobilinogen - Negative Bedside Urine Nitrite - Negative Bedside Urine Leukocytes - Negative Esterase Imaging Data Chest x-ray: Radiologist's impression: [facility] [id number] [place] [id number] XRay Report Signed Patient: Lyndon Antonio EMR#: [id number] : 7Acct:[id number] Age/Sex: 62 / MDate of Service: 01/21/18 Loc: ED Accession Number: [id number] Procedure: XR chest 1V Ordering Provider: Ara Pedroza D.O. PROCEDURE: XR CHEST 1V INDICATIONS: chest pain, presyncope TECHNIQUE: One view of the chest was acquired. COMPARISON: [facility], , XR CHEST 2V, 07/16/2017, 12:52. FINDINGS: Surgical changes and devices: None. Lungs and pleura: No pleural effusions or pneumothorax. Lungs are clear. Mediastinum: Mediastinal contours appear normal. Heart size is normal. Bones and chest wall: No suspicious bony lesions. Overlying soft tissues appear unremarkable. IMPRESSION: No acute cardiopulmonary disease. Dictated by: Audi Gamez M.D. on 01/21/2018 at 13:35 Approved by: Audi Gaemz M.D. on 01/21/2018 at 13:36 ECG Data Attestation: I personally reviewed and interpreted this ECG as follows: Prior ECG tracings: available for review Interpretation: Normal sinus rhythm rate 73 MT interval to 15, previous MT interval also increased. 1st degree AV block QRS 89, no ST changes no T-wave inversions similar to previous EKG MDM Narrative Medical decision making narrative: Patient's signs and symptoms consistent with a vasovagal episode. He had tunnel vision near-syncope but did not actually pass out. He has a persistent 1st degree AV block. He is ambulatory in the ED feels ready and able to go home. No neurologic deficits to suggest that he needs a head CT. at bedside. I have reviewed findings with her as well. Discharge Plan Departure Patient Disposition: Home Clinical Impression: Vasovagal syncope Discharge Date/Time: 01/21/18 16:02 Interventions: ED Discharge Assessment Last Done: 01/21/18 16:02 Instructions: DI for Syncope in Adults (Fainting) Activity Restrictions/Additional Instructions: *You have been diagnosed with fainting episode *What to do: Blood work x-ray are reassuring today. He likely had a fainting episode. Increase fluid intake eat small frequent meals *Continue to take medications as directed *Follow up with your primary care provider in 2-3 days *Return to ER if you should have recurrent episodes, passing out chest pain, heart palpitations or any new, worsening or concerning symptoms Prescriptions: No Action aspirin [Adult Low Dose Aspirin] 81 mg tablet,delayed release (DR/EC) 81 mg PO DAILY RF: 0 lactobacillus combination no.8 [Adult Probiotic] 3 billion cell capsule 3,000 mmu cells PO DAILY RF: 0 aspirin 325 mg Tablet 325 mg PO .ONCE RF: 0 atorvastatin [Lipitor] 80 mg tablet 80 mg PO DAILY RF: 0 metoprolol tartrate 25 mg tablet 50 mg PO DAILY RF: 0 Referrals: Eduar Lara MD [Primary Care Provider] -
== END 2018-01-21 16:02 | disposition home or self-care (01) ==
PROVIDERS: Emergency Provider Emergency Medicine; Family Provider Family Medicine; PCP Family Medicine
DX: R55 Syncope and collapse (principal)
CPT/HCPCS: 36591; 71045; 80053; 81003; 82550; 82553; 83690; 84484; 85025; 93005; 93010; 96360; 96361; 99284; 99285

== ENCOUNTER → 2018-01-23 14:39 | Outpatient (CLI) | payer OTHER, SELFPAY ==
[2018-01-23 16:55] LABS: Cholesterol 212 mg/dL (140-199); HDL Cholesterol 99 mg/dL (40-60); LDL Cholesterol Calculated 77 mg/dL (<100); Magnesium 1.8 mg/dL (1.6-2.3); Triglycerides 178 mg/dL (35-150)
[2018-01-23 17:26] LABS: Thyroid Stimulating Hormone 1.01 uIU/mL (0.47-4.68)
== END ==
PROVIDERS: PCP Family Medicine; Visit Provider Family Medicine
DX: E78.2 Mixed hyperlipidemia (principal); R55 Syncope and collapse
CPT/HCPCS: 36415; 80061; 83735; 84443; G0103

== ENCOUNTER → 2018-05-11 07:51 | Outpatient (CLI) | payer OTHER, SELFPAY ==
[2018-05-11 09:18] LABS: Add Manual Diff / Slide Review NO; Basophils Absolute Auto 100 /uL (0-100); Basophils Percent Auto 1.1 % (0-2); Eosinophils Absolute Auto 100 /uL (0-450); Eosinophils Percent Auto 1.2 % (2-4); Hematocrit 42.8 % (41-53); Hemoglobin 14.9 g/dL (13.5-17.5); Lymphocytes Absolute Auto 1000 /uL (1100-4500); Lymphocytes Percent Auto 18.3 % (25-40); Mean Corpuscular HGB Conc 34.9 % (30-36); Mean Corpuscular Hemoglobin 34.6 PG (26-34); Mean Corpuscular Volume 99.2 fL (80-100); Monocytes Absolute Auto 500 /uL (0-900); Monocytes Percent Auto 10.1 % (3-14); Neutrophils Absolute Auto 3700 /uL (1500-7000); Neutrophils Percent Auto 69.3 % (50-75); Platelet Count 187 X10^3/uL (150-400); Red Blood Cell Count 4.31 X10^6/uL (4.5-5.9); Red Cell Distribution Width 13.7 % (11.6-14.8); White Blood Cell Count 5.3 X10^3/uL (4.5-11.0)
[2018-05-11 09:26] LABS: BUN Creatinine Ratio 18.6 (6-22); Blood Urea Nitrogen 13 mg/dL (9-20); Calcium 9.6 mg/dL (8.4-10.2); Carbon Dioxide 24 mmol/L (22-32); Chloride 103 mmol/L (98-107); Estimated Glomerular Filt Rate > 60.0 mL/min (>60); Glucose 91 mg/dL (80-110); HEMOLYSIS < 15 (0-50); Potassium 4.2 mmol/L (3.4-5.1); Sodium 137 mmol/L (137-145)
== END ==
PROVIDERS: Family Provider Family Medicine; PCP Family Medicine; Visit Provider Nurse Practitioner Gerontology
DX: R42 Dizziness and giddiness (principal); F10.10 Alcohol abuse, uncomplicated
CPT/HCPCS: 36415; 80048; 85025

== ENCOUNTER → 2018-07-07 16:54 | Outpatient (CLI) | payer OTHER, SELFPAY ==
--- NOTE | 2018-07-07 | DI.RAD.S_ITS ---
PROCEDURE: XR CHEST 2V INDICATIONS: LIFE LONG SMOKER TECHNIQUE: 2 views of the chest were acquired. COMPARISON: [facility], CR, XR CHEST 1V, 01/21/2018, 13:24. [facility], CR, XR CHEST 2V, 07/16/2017, 12:52. FINDINGS: Surgical changes and devices: None. Lungs and pleura: Lungs are clear. No pleural effusions or pneumothorax. Mediastinum: Mediastinal contours are normal. Heart size is normal. Bones and chest wall: No suspicious bony abnormalities. Soft tissues appear unremarkable. IMPRESSION: No pneumonia found, no neoplasm suspected. Dictated by: Martin Montanez M.D. on 07/08/2018 at 8:21 Approved by: Martin Montanez M.D. on 07/08/2018 at 8:21
--- NOTE | 2018-07-07 | DI.RAD.S_ITS ---
PROCEDURE: XR CERVICAL SPINE 4V OR 5V INDICATIONS: Cervicalgia TECHNIQUE: 5 views of the cervical spine acquired including both obliques. COMPARISON: [facility], , CERVICAL SPINE 2 OR 3 VIEWS, 08/18/2007, 8:58. FINDINGS: Bones: No fractures or dislocations to the T1 level. Oblique images demonstrate no bony foraminal stenoses. There is a mild degree of degenerative disc disease along the cervical spine, without significant osteophyte formation projecting into the neural foramen on the left but at the C34 level osteophyte formation does impinge on the neural foramen potentially causing right-sided C4 nerve root impingement. Soft tissues: No prevertebral soft tissue swelling. IMPRESSION: The degenerative disc disease along the cervical spine is mild but there is asymmetric C3-4 facet osteoarthritis with neural foraminal impingement on the right at that site. The C4 nerve root likely is impinged upon as a result. Please correlate clinically. Dictated by: Martin Montanez M.D. on 07/08/2018 at 8:13 Approved by: Martin Montanez M.D. on 07/08/2018 at 8:21
== END ==
PROVIDERS: Family Provider Family Medicine; PCP Family Medicine; Visit Provider Chiropractor
DX: M50.30 Other cervical disc degeneration, unspecified cervical region (principal); M47.812 Spondylosis without myelopathy or radiculopathy, cervical region; F17.200 Nicotine dependence, unspecified, uncomplicated
CPT/HCPCS: 71046; 72050

== ENCOUNTER → 2018-11-04 16:06 | Outpatient (CLI) | payer OTHER, SELFPAY ==
--- NOTE | 2018-11-04 16:07 | DI.RAD.S_ITS ---
PROCEDURE: XR CHEST 2V INDICATIONS: cough TECHNIQUE: 2 views of the chest were acquired. COMPARISON: [facility], CR, XR CHEST 2V, 07/07/2018, 17:15. FINDINGS: Surgical changes and devices: None. Lungs and pleura: Small patchy left basilar opacity not seen on comparison study is noted. No focal consolidation. No pleural effusions or pneumothorax. Mediastinum: Mediastinal contours are normal. Heart size is normal. Bones and chest wall: No suspicious bony abnormalities. Soft tissues appear unremarkable. IMPRESSION: There is a new patchy left basilar opacity seen only on the AP view which may represent early developing airspace disease versus atelectasis. Recommend follow up chest radiograph 4-6 weeks after treatment to document resolution of findings and/or return to baseline examination. Dictated by: Willie Justice M.D. on 11/04/2018 at 16:56 Approved by: Willie Justice M.D. on 11/04/2018 at 16:58
== END ==
PROVIDERS: PCP Family Medicine; Visit Provider Family Medicine
DX: R05 Cough (principal)
CPT/HCPCS: 71046

== ENCOUNTER → 2018-11-06 07:39 | Outpatient (CLI) | payer OTHER, SELFPAY ==
[2018-11-06 09:19] LABS: Add Manual Diff / Slide Review NO; Basophils Absolute Auto 100 /uL (0-100); Basophils Percent Auto 1.2 % (0-2); Eosinophils Absolute Auto 100 /uL (0-450); Eosinophils Percent Auto 2.3 % (2-4); Hematocrit 44.3 % (41-53); Hemoglobin 15.3 g/dL (13.5-17.5); Lymphocytes Absolute Auto 1900 /uL (1100-4500); Mean Corpuscular HGB Conc 34.6 % (30-36); Mean Corpuscular Hemoglobin 34.9 PG (26-34); Mean Corpuscular Volume 100.9 fL (80-100); Monocytes Absolute Auto 500 /uL (0-900); Monocytes Percent Auto 8.9 % (3-14); Neutrophils Absolute Auto 3600 /uL (1500-7000); Neutrophils Percent Auto 57.6 % (50-75); Platelet Count 189 X10^3/uL (150-400); Red Blood Cell Count 4.39 X10^6/uL (4.5-5.9); Red Cell Distribution Width 13.9 % (11.6-14.8); White Blood Cell Count 6.2 X10^3/uL (4.5-11.0)
[2018-11-06 09:24] LABS: Alanine Aminotransferase 56 IU/L (21-72); Albumin 4.7 g/dL (3.5-5.0); Albumin Globulin Ratio 1.6 (1.0-2.8); Alkaline Phosphatase 85 U/L (38-126); Aspartate Aminotransferase 59 IU/L (17-59); BUN Creatinine Ratio 14.3 (6-22); Bilirubin Total 0.6 mg/dL (0.2-1.3); Blood Urea Nitrogen 10 mg/dL (9-20); Calcium 9.9 mg/dL (8.4-10.2); Carbon Dioxide 29 mmol/L (22-32); Chloride 101 mmol/L (98-107); Cholesterol 209 mg/dL (140-199); Estimated Glomerular Filt Rate > 60.0 mL/min (>60); Globulin 2.9 g/dL (1.7-4.1); Glucose 87 mg/dL (80-110); HDL Cholesterol 93 mg/dL (40-60); HEMOLYSIS < 15 (0-50); LDL Cholesterol Calculated 94 mg/dL (<100); Potassium 5.2 mmol/L (3.4-5.1); Sodium 141 mmol/L (137-145); Total Protein 7.6 g/dL (6.3-8.2); Triglycerides 112 mg/dL (35-150)
[2018-11-06 09:54] LABS: Prostate Specific Antigen Scrn 0.724 ng/mL (0.1-4.0)
[2018-11-06 09:56] LABS: Thyroid Stimulating Hormone 0.98 uIU/mL (0.47-4.68)
== END ==
PROVIDERS: PCP Family Medicine; Visit Provider Family Medicine
DX: E78.2 Mixed hyperlipidemia (principal)
CPT/HCPCS: 36415; 80053; 80061; 84443; 85025; G0103

== ENCOUNTER → 2019-01-29 13:17 | Outpatient (CLI) | payer OTHER, SELFPAY ==
--- NOTE | 2019-01-29 13:18 | DI.RAD.S_ITS ---
PROCEDURE: XR CHEST 2V INDICATIONS: abnormal chest xray TECHNIQUE: 2 views of the chest were acquired. COMPARISON: [facility], , XR CHEST 2V, 11/04/2018, 16:15. [facility], , XR CHEST 2V, 07/07/2018, 17:15. FINDINGS: Surgical changes and devices: None. Lungs and pleura: Lungs are clear. No pleural effusions or pneumothorax. Mediastinum: Mediastinal contours are normal. Heart size is normal. Bones and chest wall: No suspicious bony abnormalities. Soft tissues appear unremarkable. IMPRESSION: Normal for age, no pneumonia or neoplasm is seen.. Dictated by: Martin Montanez M.D. on 01/29/2019 at 14:11 Approved by: Martin Montanez M.D. on 01/29/2019 at 14:11
== END ==
PROVIDERS: PCP Family Medicine; Visit Provider Family Medicine
DX: R93.89 Abnormal findings on diagnostic imaging of other specified body structures (principal)
CPT/HCPCS: 71046

== ENCOUNTER → 2019-04-02 07:36 | Outpatient (CLI) | payer BC, SELFPAY ==
[2019-04-02 08:13] LABS: Add Manual Diff / Slide Review NO; Basophils Absolute Auto 0 /uL (0-100); Basophils Percent Auto 0.8 % (0-2); Eosinophils Absolute Auto 100 /uL (0-450); Eosinophils Percent Auto 2.6 % (2-4); Hematocrit 45.6 % (41-53); Lymphocytes Absolute Auto 1500 /uL (1100-4500); Lymphocytes Percent Auto 32.5 % (25-40); Mean Corpuscular Hemoglobin 34.8 PG (26-34); Mean Corpuscular Volume 99.3 fL (80-100); Monocytes Absolute Auto 600 /uL (0-900); Monocytes Percent Auto 12.4 % (3-14); Neutrophils Absolute Auto 2400 /uL (1500-7000); Neutrophils Percent Auto 51.7 % (50-75); Platelet Count 170 X10^3/uL (150-400); Red Cell Distribution Width 14.3 % (11.6-14.8); White Blood Cell Count 4.7 X10^3/uL (4.5-11.0)
[2019-04-02 08:26] LABS: Alanine Aminotransferase 46 IU/L (<50); Albumin Globulin Ratio 1.6 (1.0-2.8); Alkaline Phosphatase 78 U/L (38-126); Aspartate Aminotransferase 62 IU/L (17-59); BUN Creatinine Ratio 16.3 (6-22); Bilirubin Total 0.7 mg/dL (0.2-1.3); Blood Urea Nitrogen 13 mg/dL (9-20); Calcium 10.2 mg/dL (8.4-10.2); Carbon Dioxide 27 mmol/L (22-32); Chloride 105 mmol/L (98-107); Estimated Glomerular Filt Rate > 60.0 mL/min (>60); Globulin 3.2 g/dL (1.7-4.1); Glucose 96 mg/dL (80-110); HEMOLYSIS < 15 (0-50); Potassium 5.1 mmol/L (3.4-5.1); Sodium 143 mmol/L (137-145); Total Protein 8.2 g/dL (6.3-8.2)
[2019-04-02 08:56] LABS: Testosterone 699 ng/dL (71.8-623)
[2019-04-02 09:17] LABS: Thyroid Stimulating Hormone 1.03 uIU/mL (0.47-4.68)
== END ==
PROVIDERS: PCP Family Medicine; Referring Provider Family Medicine; Visit Provider Family Medicine
DX: Z13.29 Encounter for screening for other suspected endocrine disorder (principal); E78.2 Mixed hyperlipidemia; R53.83 Other fatigue
CPT/HCPCS: 36415; 80053; 84403; 84443; 85025

== ENCOUNTER → 2019-06-25 08:35 | Outpatient (CLI) | payer BC, SELFPAY ==
--- NOTE | 2019-06-25 08:38 | DI.US.S_ITS ---
PROCEDURE: US ABD AORTA ANEURYSM SCREEN INDICATIONS: BACK PAIN TECHNIQUE: Real time scanning was performed of the aorta and iliac arteries, with image documentation. COMPARISON: None. FINDINGS: Aorta: Proximal aortic diameter measures 1.7 cm. Mid-aorta measures 1.6 cm. Distal aortic diameter is 1.6 cm. Iliac arteries: Right common iliac artery measures 0.9 cm. Left common iliac artery measures 1 cm. IMPRESSION: Negative for aneurysm. Dictated by: Matteo Beltran M.D. on 06/25/2019 at 9:02 Approved by: Matteo Beltran M.D. on 06/25/2019 at 9:03
== END ==
PROVIDERS: PCP Family Medicine; Referring Provider Family Medicine; Visit Provider Family Medicine
DX: Z13.6 Encounter for screening for cardiovascular disorders (principal); M54.9 Dorsalgia, unspecified; F17.200 Nicotine dependence, unspecified, uncomplicated
CPT/HCPCS: 76706

== ENCOUNTER → 2019-07-13 08:20 | Outpatient (CLI) | payer BC, SELFPAY ==
--- NOTE | 2019-07-13 08:21 | DI.MRI.S_ITS ---
PROCEDURE: MR LUMBAR SPINE WO CON INDICATIONS: Back pain TECHNIQUE: Noncontrast sagittal T1 spin echo and T2 fast echo, sagittal STIR, axial T1 and T2 fast spin echo through the lumbar spine. In cases with scoliosis, additional coronal T2 fast spin echo may be performed. COMPARISON: [facility], CR, XR LUMBAR SPINE WITH OLBIQUES PLUS FLEXION EXTENSION, 07/08/2019, 10:32. FINDINGS: Image quality: Excellent. Alignment and Curvature: There is normal bony alignment. Bone Marrow: Marrow is of normal overall signal. No acute vertebral body compression fractures. Spinal Cord: Conus medullaris terminates at the L1-L2 level. Visualized cord demonstrates normal signal and size. Paraspinous Soft Tissues: No paravertebral masses. T12-L1: No canal stenosis or foraminal stenosis. L1-L2: Normal appearance. L2-L3: Mild disc bulge. No canal stenosis or foraminal stenosis. L3-L4: Mild disc bulge. Mild facet and ligament hypertrophy. No canal stenosis or foraminal stenosis. L4-L5: There is a far left lateral foraminal disc extrusion or free fragment impinging on the left L4 nerve root far laterally. Mild posterior disc bulge. Facet and ligament hypertrophy. Mild canal stenosis. L5-S1: Mild central posterior disc protrusion indenting on the thecal sac. The left S1 nerve root is abutted in the left lateral recess. Facet hypertrophy. No foraminal stenosis. IMPRESSION: 1. At L4-L5, there is a far left lateral disc extrusion or free disc fragment impinging upon the left L4 nerve root far laterally in the left foramen.. Question: Does this patient have left L4 radiculopathy? 2. Also at L4-L5, there is mild canal stenosis. 3. L5-S1 there is a mild central posterior disc protrusion which abuts but does not displace the left S1 nerve root in the left lateral recess. Dictated by: Jaron Larsen M.D. on 07/13/2019 at 10:06 Approved by: Jaron Larsen M.D. on 07/13/2019 at 10:12
== END ==
PROVIDERS: PCP Family Medicine; Referring Provider Physical Medicine & Rehabilitation; Visit Provider Physical Medicine & Rehabilitation
DX: M51.26 Other intervertebral disc displacement, lumbar region (principal); M51.27 Other intervertebral disc displacement, lumbosacral region; M48.061 Spinal stenosis, lumbar region without neurogenic claudication
CPT/HCPCS: 72148

== ENCOUNTER 2019-12-02 17:33 | Inpatient (IN) | payer BC, SELFPAY ==
[2019-12-02] VITALS (18 sets, daily range): BP systolic 135–187; BP diastolic 82–103; PULSE 103–121; RESP 14–30; TEMP 36.9–37.3; O2SAT 91–98
[2019-12-02] MEDS: LORazepam 2 MG/ML INJ 1 MG IV (17:58)
--- NOTE | 2019-12-02 17:59 | DI.CT.S_ITS ---
PROCEDURE: CT HEAD/BRAIN WO CON INDICATIONS: new onset seizure TECHNIQUE: Noncontrast 4.5 mm thick angled axial sections acquired from the foramen magnum to the vertex, with coronal and sagittal reformats. For radiation dose reduction, the following was used: automated exposure control, adjustment of mA and/or kV according to patient size. COMPARISON: None. FINDINGS: Image quality: Excellent. CSF spaces: Basal cisterns are patent. No extra-axial fluid collections. The ventricles are symmetric in size and shape. Brain: No acute intracranial hemorrhage or mass effect. A possible small area of hypoattenuation is seen at the anterior aspect of the medulla measuring 8 x 7 mm (image 6 of series 2) that could be related to streak artifact from the adjacent dense skull base, but a small parenchymal lesion or subacute to chronic infarct is not excluded. There is cerebral volume loss for age, with resultant ventricular and sulcal prominence. There are periventricular and deep white matter chronic small vessel ischemic changes. There is intracranial internal carotid artery atherosclerosis. Skull and face: Calvarium and visualized facial bones appear intact, without suspicious lesions. Sinuses: A mucous retention cyst or polyp is seen in the left maxillary sinus. The remaining visualized paranasal sinuses are clear. The mastoid air cells are clear. IMPRESSION: 1. Possible small hypoattenuating lesion at the anterior aspect of the lower medulla may be related to streak artifact from the adjacent skull base, but a focal white matter lesion or subacute to chronic infarct is not excluded. Recommend correlation with neurologic findings. MRI may be obtained for further evaluation. 2. No acute intracranial hemorrhage or mass effect. Dictated by: Roge Rapp M.D. on 12/02/2019 at 18:43 Approved by: Roge Rapp M.D. on 12/02/2019 at 18:53
[2019-12-02 18:00] LABS: Add Manual Diff / Slide Review NO; Basophils Absolute Auto 0 /uL (0-100); Basophils Percent Auto 0.3 % (0-2); Eosinophils Absolute Auto 0 /uL (0-450); Hematocrit 45.5 % (41-53); Hemoglobin 15.4 g/dL (13.5-17.5); Lymphocytes Absolute Auto 1500 /uL (1100-4500); Lymphocytes Percent Auto 13.2 % (25-40); Mean Corpuscular HGB Conc 33.8 % (30-36); Mean Corpuscular Hemoglobin 35.1 PG (26-34); Monocytes Absolute Auto 1100 /uL (0-900); Neutrophils Absolute Auto 8400 /uL (1500-7000); Neutrophils Percent Auto 76.5 % (50-75); Platelet Count 101 X10^3/uL (150-400); Red Blood Cell Count 4.38 X10^6/uL (4.5-5.9); Red Cell Distribution Width 13.6 % (11.6-14.8)
--- NOTE | 2019-12-02 18:03 | ED.RECABL ---
HPI - Recheck/Abnormal Lab/Rx General Chief Complaint: Seizure Stated Complaint: Stop ETOH 2 days ago Time Seen by Provider: 12/02/19 17:46 Source: EMS Mode of arrival: EMS Limitations: no limitations History of Present Illness HPI narrative: 64-year-old male daily smoker and daily drinker with history of hypertension and hyperlipidemia as well as chronic back pain presents by EMS for signs and symptoms consistent with alcohol withdrawal. He had been drinking between a pt and a 5th every day up until 2 days ago when he quit, largely cold turkey, after discussions with his . There was no involvement of a physician. He has been drinking heavily for upwards of 30 years and to her knowledge she states he has never tried quitting before. He has never been through alcohol withdrawals and has never had seizures. He denies any recent injury. He denies any dietary change. Prior to arrival he was feeling tremulous, agitated, nauseated with the headache. Initial visit (ago): hour(s) Related Data Home Medications Medication Instructions Recorded Confirmed aspirin 81 mg tablet,delayed 81 mg PO DAILY 09/10/17 12/03/19 release Previous Rx's Medication Instructions Recorded atorvastatin 80 mg tablet 80 mg PO DAILY #90 tab 11/04/18 metoprolol tartrate 25 mg tablet 50 mg PO DAILY #180 tab 11/04/18 Allergies Allergy/AdvReac Type Severity Reaction Status Date / Time No Known Drug Allergies Allergy Verified 12/02/19 17:58 Review of Systems Constitutional Constitutional: Denies chills, Denies fatigue, Denies fever(s), Denies frequent falls, Reports headache(s), Denies lethargy and Reports weakness Eyes Eyes: Denies change in vision, Denies eye discharge, Denies irritation and Denies loss of vision ENT Ears, Nose, Mouth, and Throat: Denies change in voice, Denies dizziness, Reports headache(s), Denies neck pain, Denies sore throat and Denies throat swelling Cardiovascular Cardiovascular: Denies chest pain, Denies irregular heart rhythm, Denies lightheadedness, Denies palpitations, Denies dyspnea, Denies dyspnea on exertion and Denies orthopnea Respiratory Respiratory: Denies cough, Denies dyspnea, Denies dyspnea on exertion and Denies wheezing Gastrointestinal Gastrointestinal: Reports abdominal pain, Denies change in bowel habits, Denies diarrhea, Reports nausea and Denies vomiting Musculoskeletal Musculoskeletal: Denies neck pain and Denies numbness Integumentary/Breasts Skin/Breast: Denies pruritus, Denies erythema, Denies rash and Denies wounds Neurologic Neurologic: Denies behavioral changes, Reports confusion, Denies dizziness, Denies frequent falls, Reports headache(s), Denies loss of vision, Denies numbness and Reports weakness Psychiatric Psychiatric: Reports anxiety, Denies behavioral changes, Reports confusion, Denies depression, Denies homicidal ideation and Denies suicidal ideation Endocrine Endocrine: Denies fatigue, Denies flushing and Denies palpitations Hematologic/Lymphatic Hematologic/Lymphatic: Denies easy bruising Allergic/Immunologic Allergic/Immunologic: Denies urticaria, Denies throat swelling and Denies wheezing Patient History Medical History (Updated 12/02/19 @ 22:37 by Ramez Reed DO) Alcoholism (Acute) CAD (coronary artery disease) (Chronic) Chicken pox (Resolved 1966) Heart attack (Resolved 2008) Measles (Resolved ~1969) Rheumatoid arthritis (Acute) Shoulder pain (Chronic) Surgical History Anesthesia (Resolved) History of heart artery stent (Resolved 2008) Status post rotator cuff repair (Resolved) Family History Mother Age: 93 Heart attack Brother No problems noted. Father Cancer Sister No problems noted. Social History household members: spouse Smoking Status: Current every day smoker alcohol intake: current Smoking Status: Current every day smoker alcohol intake frequency: 3 or more drinks per day Substance Use Type: does not use Exam Narrative Exam Narrative: GENERAL: [64] year old patient appears stated age. Well-nourished, well-developed patient, in mild distress. Resting comfortably HEAD: Atraumatic. Normocephalic. EYES: Pupils equal round and reactive. Extraocular motions intact. No scleral icterus. No injection or drainage. ENT: Nose without bleeding, purulent drainage. Throat without erythema, tonsillar hypertrophy or exudate. Airway patent. NECK: Trachea midline. Non tender CARDIOVASCULAR: Regular rate and rhythm without murmurs, gallops, or rubs. RESPIRATORY: Clear to auscultation. Breath sounds equal bilaterally. No wheezes, rales, or rhonchi. GASTROINTESTINAL: Abdomen soft, non-tender, nondistended. EXTREMITIES: No edema or joint tenderness. BACK: Nontender without deformity or crepitance. No flank tenderness. NEURO: AOx3. SKIN: No rash or erythema of visible areas Initial Vital Signs Initial Vital Signs: Vital Signs Temperature 98.5 F 12/02/19 17:38 Pulse Rate 120 H 12/02/19 17:38 Respiratory Rate 30 H 12/02/19 17:38 Blood Pressure 187/93 H 12/02/19 17:38 Pulse Oximetry 95 12/02/19 17:38 Course Orders Ordered: ED Orders 12/02/19 17:50 Complete Blood Count AUTO DIFF Stat Comprehensive Metabolic Panel Stat Ethanol (ETOH) Stat Lipase Stat Magnesium Stat 12/02/19 17:59 CT head/brain wo con Stat 12/02/19 19:01 CT angio head and neck Stat 12/02/19 21:03 Urine Drug Screen, Rapid Stat Aspirin (Aspirin Ec) 81 mg PO DAILY TRES Atorvastatin Calcium (Lipitor) 80 mg PO BEDTIME TRES Bisacodyl (Dulcolax) 10 mg PO DAILY PRN PRN Reason: Constipation Enoxaparin Sodium (Lovenox) 40 mg SUBCUT DAILY [facility] Folic Acid (Folic Acid) 1 mg PO DAILY [facility] Dextrose/Sodium Chloride (Dextrose 5%-0.45% Ns) 1,000 mls @ 100 mls/hr IV CONT TRES Last Admin: 12/02/19 21:59 Dose: 100 mls/hr Documented by: RACHID Magnesium Sulfate 2 gm/ Folic Acid 1 mg/ Thiamine HCl 100 mg / Multivitamins 10 ml/ Sodium Chloride 1,015.2 mls @ 125 mls/hr IV NOW ONE Stop: 12/03/19 05:42 Last Admin: 12/02/19 22:54 Dose: 125 mls/hr Documented by: RACHID Lorazepam (Ativan) 0 mg IV [id number] PRN; Protocol PRN Reason: Alcohol Withdrawal Last Admin: 12/02/19 22:04 Dose: 1 mg Documented by: RACHID Metoprolol Tartrate (Lopressor) 50 mg PO DAILY [facility] Multivitamins (Tab-A-Alok) 1 tab PO DAILY [facility] Naloxone HCl (Narcan) 0.2 mg IV Q2MIN PRN PRN Reason: Opiate Reversal Thiamine HCl (Vitamin B-1) 100 mg PO DAILY TRES Stop: 12/05/19 09:01 Last Admin: 12/02/19 22:04 Dose: 100 mg Documented by: RACHID Discontinued Medications Lorazepam (Ativan) 1 mg IV NOW ONE Stop: 12/02/19 17:47 Last Admin: 12/02/19 17:58 Dose: 1 mg Documented by: VIOLA Phenobarbital (Phenobarbital) 260 mg IV NOW ONE Stop: 12/02/19 17:48 Last Admin: 12/02/19 18:06 Dose: 260 mg Documented by: VIOLA Thiamine HCl (Vitamin B-1) 100 mg IV NOW ONE Stop: 12/02/19 18:00 Last Admin: 12/02/19 18:07 Dose: 100 mg Documented by: VIOLA Reevaluation(s) Reevaluation #1: Shortly after arrival patient fine to have tonic-clonic seizure. Ativan and phenobarb given, seizure resolved Consultations Consultation #1: discussed with Dr. Silva who is happy to accept on behalf of Dr. Lara. Vital Signs Vital signs: Vital Signs - 8 hr 12/02/19 17:38 12/02/19 17:58 12/02/19 18:00 Temperature 98.5 F Pulse Rate 120 H 119 H 121 H Respiratory Rate 30 H 24 Blood Pressure 187/93 H 146/84 H Pulse Oximetry 95 94 94 12/02/19 18:44 12/02/19 19:00 12/02/19 19:36 Temperature Pulse Rate 116 H 113 H 103 H Respiratory Rate 22 19 20 Blood Pressure 145/91 H 144/89 H 163/90 H Pulse Oximetry 97 98 98 12/02/19 20:00 12/02/19 20:30 Temperature Pulse Rate 110 H 112 H Respiratory Rate 20 21 Blood Pressure 160/91 H 143/90 H Pulse Oximetry 94 93 MDM - Recheck/Abnormal Lab/Rx Lab Data Result diagrams: 12/02/19 17:50 12/02/19 17:50 Labs: Lab Results 12/02/19 12/02/19 12/02/19 Range/Units 17:50 17:50 17:50 WBC 11.0 (4.5-11.0) X10^3/uL RBC 4.38 L (4.5-5.9) X10^6/uL Hgb 15.4 (13.5-17.5) g/dL Hct 45.5 (41-53) % MCV 104.0 H (80-100) fL MCH 35.1 H (26-34) PG MCHC 33.8 (30-36) % RDW 13.6 (11.6-14.8) % Plt Count 101 L (150-400) X10^3/uL Neut % (Auto) 76.5 H (50-75) % Lymph % (Auto) 13.2 L (25-40) % Sullivan % (Auto) 10.0 (3-14) % Eos % (Auto) 0.0 L (2-4) % Baso % (Auto) 0.3 (0-2) % Neut # (Auto) 8400 H (3278-2264) /uL Lymph # (Auto) 1500 (3780-5373) /uL Sullivan # (Auto) 1100 H (0-900) /uL Eos # (Auto) 0 (0-450) /uL Baso # (Auto) 0 (0-100) /uL Sodium 139 (137-145) mmol/L Potassium 4.2 (3.4-5.1) mmol/L Chloride 102 (98-107) mmol/L Carbon Dioxide 14 L (22-32) mmol/L BUN 10 (9-20) mg/dL Creatinine 0.72 (0.66-1.25) mg/dL Estimated GFR > 60.0 (>60) mL/min BUN/Creatinine Ratio 13.9 (6-22) Glucose 154 H (80-110) mg/dL Calcium 9.9 (8.4-10.2) mg/dL Magnesium 1.9 (1.6-2.3) mg/dL Total Bilirubin 1.2 (0.2-1.3) mg/dL AST 195 H (17-59) IU/L ALT 155 H (<50) IU/L Alkaline Phosphatase 100 (38-126) U/L Total Protein 8.7 H (6.3-8.2) g/dL Albumin 5.3 H (3.5-5.0) g/dL Globulin 3.4 (1.7-4.1) g/dL Albumin/Globulin Ratio 1.6 (1.0-2.8) Lipase 253 (23-300) U/L Ethyl Alcohol < 10 ( - 10) mg/dL Point of Care Testing Glucose POC 125 Imaging Data CTA Head/Neck: Radiologist's Impression: 6 Ramez Reed DO Find Patient Imaging - Lyndon Antonio 64 M 1955 ACTIVITY DATE EXAM STATUS AUTHOR 12/02/19 19:01 Signed Roge Rapp 12/02/19 17:[address] [address] [address] Scan Report Signed Patient: Lyndon Antonio EMR#: [id number] : 7Acct:[id number] Age/Sex: 64 / MDate of Service: 12/02/19 Loc: ED Accession Number: [id number] Procedure: CT angio head and neck Ordering Provider: Ramez Reed D.O. PROCEDURE: CT ANGIO HEAD AND NECK INDICATIONS: abnormal finding on head CT TECHNIQUE: Pre-contrast 4.5 mm thick sections acquired from the foramen magnum to the vertex. After the administration of intravenous contrast, 1 mm thick sections acquired from the aortic arch through the [place] of [place]. Post-contrast 4.5 mm thick sections then re-acquired from the foramen magnum to the vertex. 3-dimensional ctbzddi-zuuzsdbct-urivxodcdm (MIP) and/or volume rendering reformats were acquired of the central intracranial vasculature and neck separately. COMPARISON: None. FINDINGS: Image quality: Excellent. BRAIN: CSF spaces: Ventricles are normal in size and shape. Basal cisterns are patent. No extra-axial fluid collections. Brain: No midline shift. No acute intracranial hemorrhage or mass effect. Scattered hypodensities are again seen in the subcortical and periventricular white matter, most compatible with mild chronic microvascular ischemic changes. The area of hypodensity at the ventral aspect of the lower medulla does not appear significantly changed, and again has a nonspecific appearance. Skull and face: Calvarium and facial bones appear intact, without suspicious lesions. Orbits appear normal. Sinuses: A mucous retention cyst or polyp is seen in the left maxillary sinus. The paranasal sinuses are otherwise clear. The mastoid air cells are clear. HEAD CT ANGIOGRAPHY: Anterior circulation: Intracranial internal carotid arteries demonstrate mild atherosclerotic calcifications without hemodynamically significant stenosis. The flow within the paired anterior cerebral arteries is normal and symmetric. The flow within the middle cerebral arteries is normal and symmetric. The anterior communicating artery is seen. No aneurysms are seen. Posterior circulation: Visualized portions of the vertebral arteries demonstrate normal caliber, and join to form a normal appearing basilar artery. Flow within the posterior cerebral arteries is normal and symmetric. No aneurysms are seen. NECK CT ANGIOGRAPHY: Carotid system: The great vessels demonstrate a conventional anatomy as they arise from the aortic arch. Mild atherosclerotic calcifications are seen in the aortic arch. The origins of the common carotid arteries appear patent. The common carotid arteries demonstrate normal caliber and courses. Calcified atherosclerotic plaque is seen at the right carotid bifurcation resulting in mild less than 50% stenosis. There is minimal calcified atherosclerotic plaque at the left carotid bifurcation. The internal carotid arteries demonstrate normal calibers and courses. Posterior circulation: The origins of the vertebral arteries both appear widely patent. The more superior extracranial portions of both vertebral arteries also demonstrate normal courses and calibers. They join to form a normal appearing basilar artery. Soft tissues: There is mild centrilobular and paraseptal emphysema in the lung apices bilaterally. These soft tissues of the neck demonstrate no acute abnormality. Bones: No suspicious bony lesions. Mild multilevel degenerative changes are seen in the cervical spine. IMPRESSION: 1. No hemodynamically significant intracranial arterial stenosis or occlusion. No intracranial aneurysm. 2. Mild calcified atherosclerotic plaque at the bilateral carotid bifurcations results in mild, less than 50% stenosis. 3. Stable small hypodensity in the ventral medulla is nonspecific. Correlation with MRI is recommended when feasible. Any quantitative measurements of stenosis were performed using NASCET criteria. Dictated by: Roge Rapp M.D. on 12/02/2019 at 19:43 Approved by: Roge Rapp M.D. on 12/02/2019 at 19:56 CT scan - head: Radiologist's Impression: Lyndon Antonio Susan 64 M [address] [address] [address] Scan Report Signed Patient: Lyndon Antonio EMR#: [id number] : 1955cct:[id number] Age/Sex: 64 / MDate of Service: 12/02/19 Loc: ED Accession Number: [id number] Procedure: CT head/brain wo con Ordering Provider: Ramez Reed D.O. PROCEDURE: CT HEAD/BRAIN WO CON INDICATIONS: new onset seizure TECHNIQUE: Noncontrast 4.5 mm thick angled axial sections acquired from the foramen magnum to the vertex, with coronal and sagittal reformats. For radiation dose reduction, the following was used: automated exposure control, adjustment of mA and/or kV according to patient size. COMPARISON: None. FINDINGS: Image quality: Excellent. CSF spaces: Basal cisterns are patent. No extra-axial fluid collections. The ventricles are symmetric in size and shape. Brain: No acute intracranial hemorrhage or mass effect. A possible small area of hypoattenuation is seen at the anterior aspect of the medulla measuring 8 x 7 mm (image 6 of series 2) that could be related to streak artifact from the adjacent dense skull base, but a small parenchymal lesion or subacute to chronic infarct is not excluded. There is cerebral volume loss for age, with resultant ventricular and sulcal prominence. There are periventricular and deep white matter chronic small vessel ischemic changes. There is intracranial internal carotid artery atherosclerosis. Skull and face: Calvarium and visualized facial bones appear intact, without suspicious lesions. Sinuses: A mucous retention cyst or polyp is seen in the left maxillary sinus. The remaining visualized paranasal sinuses are clear. The mastoid air cells are clear. IMPRESSION: 1. Possible small hypoattenuating lesion at the anterior aspect of the lower medulla may be related to streak artifact from the adjacent skull base, but a focal white matter lesion or subacute to chronic infarct is not excluded. Recommend correlation with neurologic findings. MRI may be obtained for further evaluation. 2. No acute intracranial hemorrhage or mass effect. Dictated by: Roge Rapp M.D. on 12/02/2019 at 18:43 Approved by: Roge Rapp M.D. on 12/02/2019 at 18:53 Discharge Plan Departure Patient Disposition: Admitted As Inpatient Clinical Impression: Alcohol withdrawal seizure Qualifiers: Complication of substance-induced condition: with delirium Qualified Code(s): F10.231 - Alcohol dependence with withdrawal delirium Discharge Date/Time: 12/02/19 22:20 Admit Date/Time: 12/02/19 20:44 Admit Provider: Jared Silva
[2019-12-02] MEDS: PHENobarbital 65 MG/ML VIAL 260 MG IV (18:06)
[2019-12-02] MEDS: THIAMINE 200 MG/2 ML VIAL 100 MG IV (18:07)
[2019-12-02 18:15] LABS: Albumin 5.3 g/dL (3.5-5.0); Albumin Globulin Ratio 1.6 (1.0-2.8); Alkaline Phosphatase 100 U/L (38-126); Aspartate Aminotransferase 195 IU/L (17-59); BUN Creatinine Ratio 13.9 (6-22); Bilirubin Total 1.2 mg/dL (0.2-1.3); Blood Urea Nitrogen 10 mg/dL (9-20); Calcium 9.9 mg/dL (8.4-10.2); Carbon Dioxide 14 mmol/L (22-32); Chloride 102 mmol/L (98-107); Estimated Glomerular Filt Rate > 60.0 mL/min (>60); Ethanol (ETOH) < 10 mg/dL; Globulin 3.4 g/dL (1.7-4.1); Glucose 154 mg/dL (80-110); Lipase 253 U/L (23-300); Magnesium 1.9 mg/dL (1.6-2.3); Potassium 4.2 mmol/L (3.4-5.1); Sodium 139 mmol/L (137-145); Total Protein 8.7 g/dL (6.3-8.2)
[2019-12-02 18:22] LABS: Alanine Aminotransferase 155 IU/L (<50)
[2019-12-02 18:24] LABS: HEMOLYSIS 90 (0-50)
--- NOTE | 2019-12-02 19:01 | DI.CT.S_ITS ---
PROCEDURE: CT ANGIO HEAD AND NECK INDICATIONS: abnormal finding on head CT TECHNIQUE: Pre-contrast 4.5 mm thick sections acquired from the foramen magnum to the vertex. After the administration of intravenous contrast, 1 mm thick sections acquired from the aortic arch through the [place] of [place]. Post-contrast 4.5 mm thick sections then re-acquired from the foramen magnum to the vertex. 3-dimensional zpxirul-cykudjnnt-qiocfuxiau (MIP) and/or volume rendering reformats were acquired of the central intracranial vasculature and neck separately. COMPARISON: None. FINDINGS: Image quality: Excellent. BRAIN: CSF spaces: Ventricles are normal in size and shape. Basal cisterns are patent. No extra-axial fluid collections. Brain: No midline shift. No acute intracranial hemorrhage or mass effect. Scattered hypodensities are again seen in the subcortical and periventricular white matter, most compatible with mild chronic microvascular ischemic changes. The area of hypodensity at the ventral aspect of the lower medulla does not appear significantly changed, and again has a nonspecific appearance. Skull and face: Calvarium and facial bones appear intact, without suspicious lesions. Orbits appear normal. Sinuses: A mucous retention cyst or polyp is seen in the left maxillary sinus. The paranasal sinuses are otherwise clear. The mastoid air cells are clear. HEAD CT ANGIOGRAPHY: Anterior circulation: Intracranial internal carotid arteries demonstrate mild atherosclerotic calcifications without hemodynamically significant stenosis. The flow within the paired anterior cerebral arteries is normal and symmetric. The flow within the middle cerebral arteries is normal and symmetric. The anterior communicating artery is seen. No aneurysms are seen. Posterior circulation: Visualized portions of the vertebral arteries demonstrate normal caliber, and join to form a normal appearing basilar artery. Flow within the posterior cerebral arteries is normal and symmetric. No aneurysms are seen. NECK CT ANGIOGRAPHY: Carotid system: The great vessels demonstrate a conventional anatomy as they arise from the aortic arch. Mild atherosclerotic calcifications are seen in the aortic arch. The origins of the common carotid arteries appear patent. The common carotid arteries demonstrate normal caliber and courses. Calcified atherosclerotic plaque is seen at the right carotid bifurcation resulting in mild less than 50% stenosis. There is minimal calcified atherosclerotic plaque at the left carotid bifurcation. The internal carotid arteries demonstrate normal calibers and courses. Posterior circulation: The origins of the vertebral arteries both appear widely patent. The more superior extracranial portions of both vertebral arteries also demonstrate normal courses and calibers. They join to form a normal appearing basilar artery. Soft tissues: There is mild centrilobular and paraseptal emphysema in the lung apices bilaterally. These soft tissues of the neck demonstrate no acute abnormality. Bones: No suspicious bony lesions. Mild multilevel degenerative changes are seen in the cervical spine. IMPRESSION: 1. No hemodynamically significant intracranial arterial stenosis or occlusion. No intracranial aneurysm. 2. Mild calcified atherosclerotic plaque at the bilateral carotid bifurcations results in mild, less than 50% stenosis. 3. Stable small hypodensity in the ventral medulla is nonspecific. Correlation with MRI is recommended when feasible. Any quantitative measurements of stenosis were performed using NASCET criteria. Dictated by: Roge Rapp M.D. on 12/02/2019 at 19:43 Approved by: Roge Rapp M.D. on 12/02/2019 at 19:56
--- NOTE | 2019-12-02 20:04 | PC.NURSE ---
patient states that his mouth hurts from when he bit his tongue. His tongue has a 1 cm laceration on the left side of the bottom of his tongue.
[2019-12-02 21:13] LABS: COVID19 -Nasal RAPID Negative (Negative)
[2019-12-02] MEDS: DEXTROSE 5%-0.45% NS 1,000 ML 100 ML IV (21:59)
[2019-12-02] MEDS: THIAMINE 100 MG TABLET PO (22:04)
[2019-12-02] MEDS: LORazepam 2 MG/ML INJ IV (22:04)
[2019-12-02] MEDS: MAGNESIUM SULFATE 2 GM, FOLIC ACID 1 MG, THIAMINE 100 MG, MULTIVITAMIN 10 ML in SODIUM ... IV (22:54)
[2019-12-03] VITALS (58 sets, daily range): BP systolic 120–212; BP diastolic 70–98; PULSE 84–119; RESP 12–53; TEMP 36.8–36.9; O2SAT 90–98
[2019-12-03] MEDS: LORazepam 2 MG/ML INJ IV ×15 (00:59→23:53)
[2019-12-03 02:02] LABS: Bacteria Urine None Seen; RBC Urine None Seen (0-5/HPF)
[2019-12-03 02:04] LABS: Appearance Urine UA CLEAR; Bilirubin Urine UA NEGATIVE (NEGATIVE); Color Urine UA YELLOW; Glucose Urine UA TRACE g/dL (Negative); Ketones Urine UA 1+ (NEGATIVE); Leukocyte Esterase Urine UA NEGATIVE (NEGATIVE); Nitrite Urine UA NEGATIVE (Negative); Occult Blood Urine UA TRACE-LYSED (Negative); Protein Urine UA TRACE (Negative); Urobilinogen Urine UA 0.2 E.U./dL (0.2)
[2019-12-03 02:10] LABS: UR Morphine/Opiate cutoff 300 Negative (Negative); Ur Creatinine 20 (Normal); Urine Amphetamines Negative (Negative); Urine Barbiturates Positive (Negative); Urine Benzodiazepines Negative (Negative); Urine Cocaine Negative (Negative); Urine MDMA Negative (Negative); Urine Methadone Negative (Negative); Urine Methamphetamines Negative (Negative); Urine Oxycodone Positive (Negative); Urine Phencyclidine Negative (Negative); Urine Tetrahydrocannabinol Negative (Negative); Urine Tricyclic Antidepressant Negative (Negative); Urine pH 7 (Normal)
[2019-12-03 02:20] LABS: Culture Indicated Urine Cult Not Indicated; WBC Urine 0-1/HPF (0-5/HPF)
--- NOTE | 2019-12-03 06:06 | PC.NURSE ---
Pt alert and oriented x4 but forgetful. Pt keeps complaining of pain on his tongue, laceration on left side of tongue, swollen and red. Otherwise pt has no complaints of pain. O2 sats stable at 96% on RA. CIWA at 7-10 controlled with ativan per protocol.
[2019-12-03] MEDS: DEXTROSE 5%-0.45% NS 1,000 ML 100 ML IV ×2 (06:38→17:45)
--- NOTE | 2019-12-03 07:00 | DI.MRI.S_ITS ---
PROCEDURE: MR HEAD/BRAIN W CON INDICATIONS: Abnl CT 12/01. A subtle hypodensity in the region the right ventral medulla was noted on the prior studies from yesterday. Evaluation with MRI was suggested. TECHNIQUE: After the administration of contrast, axial, sagittal, and coronal VIBE with fat saturation through the brain. COMPARISON: [facility], CT, CT ANGIO HEAD AND NECK, 12/02/2019, 19:16. [facility], CT, CT HEAD/BRAIN WO CON, 12/02/2019, 18:35. FINDINGS: Image quality: Fair. Significant patient motion artifact. Tech notes state that the patient repeatedly tried to remove the head coil. Unable to tolerate exam. CSF spaces: Ventricles are normal in size and shape. Basal cisterns are patent. No extra-axial fluid collections. Brain: There is no abnormal enhancement with gadolinium identified, with particular attention paid to the medulla. Subtle hypoattenuation may be related to chronic ischemic change. Skull and face: Calvarial marrow signal is normal. Orbits appear normal. Sinuses: Sinuses and mastoids are clear. IMPRESSION: Very limited study with patient motion artifact. No mass noted in the region of the medulla. Dictated by: Jaron Larsen M.D. on 12/03/2019 at 11:06 Approved by: Jaron Larsen M.D. on 12/03/2019 at 11:14
--- NOTE | 2019-12-03 08:33 | DI.US.S_ITS ---
PROCEDURE: US ABDOMEN COMPLETE INDICATIONS: LIVER DISEASE TECHNIQUE: Real-time scanning was performed of the abdominal and retroperitoneal organs, with image documentation. Color and pulse Doppler interrogation was also performed of the hepatic and splenic vessels, or of the lesion of interest. COMPARISON: None. FINDINGS: Liver: The liver is normal in size. Increased echotexture is seen consistent with hepatic steatosis. The liver is not well visualized due to overlying bowel gas. Gallbladder: The gallbladder is normal with no wall thickening, stones, wall thickening, or pericholecystic fluid. Biliary ducts: No intrahepatic biliary ductal dilatation. Extrahepatic bile duct is not well visualized to allow measurement. Spleen: Spleen is normal in size and homogeneous in echotexture. Pancreas: The pancreas is not well visualized, however the visualized portions appear normal. Kidneys: Both kidneys are normal in size and echotexture. Right kidney measures 9.2 cm long; left kidney measures 9.5 cm long. No hydronephrosis or nephrolithiasis. No solid renal masses. Aorta: Visualized abdominal aorta is normal in caliber at less than 3 cm. Iliacs: Proximal common iliac arteries are normal in caliber at less than 2.5 cm. IVC: Intrahepatic inferior vena cava is patent. Miscellaneous: No free abdominal fluid. IMPRESSION: 1. Limited evaluation due to extensive overlying bowel gas, however no acute ultrasound abnormality is identified. 2. Hepatic steatosis. Dictated by: Liam Nino M.D. on 12/03/2019 at 10:05 Approved by: Liam Nino M.D. on 12/03/2019 at 10:09
--- NOTE | 2019-12-03 08:34 | P.HP_ITS ---
History of Present Illness History of Present Illness Date Patient Seen: 12/03/19 Time Patient Seen: 08:34 Date of Onset of Symptoms: 12/02/19 Chief complaint: Stop ETOH 2 days ago Narrative: Alcohol withdrawal Patient admitted last night through the emergency room to ICU for alcohol withdrawal. Presented to the ER week complaining o weakness unsteadiness and age since of feeling nauseated and just generally feeling poorly. thinks that perhaps he may have had a seizure on the deck she not see observe but noticed that he had this tongue. Presumably when he was in the emergency room he apparently had a seizure resolve without loss of conscious but tomas of extremities. This was treated with phenobarb and resolved at med is been resolved ever since. Impression at that time by the emergency room staff was it was due to alcohol withdrawal. Patient has been drinking at least a pt of vodka a daily for perhaps 20 years. However this past 6 months due to several things that happened in his life he is up the dose to approximately a qt of vodka a day period and this is been going on for several months. He is have been discussing it discontinuing the alcohol but apparently he decided to stop it altogether 2 days ago. He apparently stopped it approximately 4 days about as 10 years ago when he had heart surgery. He did not have withdrawals at that time. is unaware of him having any withdrawal symptoms in the past but is it out primarily arm pressure was because he has a quit drinking. No history of head trauma. Presumably takes his metoprolol for his cardiac status. Has history of coronary artery disease 2009 underwent stent placement he had a non ST elevated myocardial infarction. Sees senior etl developer in [place] has seen recently. Additionally has several months later apparently had 2 more stents placed because of narrowing of the blood vessels obviously. He presumably has been on Pradaxa intermittently since then this was stopped recently because he had an epidural steroid. His other problem is his back pain he has chronic back pain she has had physical therapy. Sees orthopedics for same had epidural steroid placed the 10 days or so ago. Patient History Medical History Alcoholism (Acute) CAD (coronary artery disease) (Chronic) Chicken pox (Resolved 1966) Heart attack (Resolved 2008) Measles (Resolved ~1969) Rheumatoid arthritis (Acute) Shoulder pain (Chronic) Surgical History Anesthesia (Resolved) History of heart artery stent (Resolved 2008) Status post rotator cuff repair (Resolved) Family & Social History Family History Mother Age: 93 Heart attack Brother No problems noted. Father Cancer Sister No problems noted. Social History: household members spouse Prior Living Arrangements House Safety & Behavioral: Feels Safe in Current Yes Environment Suicidal Ideation Description None Suicide Plan Description No Plan Tobacco & Substance use: Smoking Status Current every day smoker alcohol intake current alcohol intake frequency 3 or more drinks per day Substance Use Type does not use Meds Home Medications and Allergies Home Medications Medication Instructions Recorded Confirmed Type aspirin 81 mg tablet,delayed 81 mg PO DAILY 09/10/17 12/03/19 History release atorvastatin 80 mg tablet 80 mg PO DAILY #90 tab 11/04/18 12/03/19 Rx metoprolol tartrate 25 mg tablet 50 mg PO DAILY #180 tab 11/04/18 12/03/19 Rx Allergies Allergy/AdvReac Type Severity Reaction Status Date / Time No Known Drug Allergies Allergy Verified 12/02/19 17:58 Review of Systems Review of Systems ROS: Yes unobtainable due to mental status (Unable to obtain review of systems due to patient's sedation. Information ) Exam Vital Signs (past 8 hours): - 12/03/19 01:00 12/03/19 01:23 12/03/19 01:26 Pulse Rate 102 H 101 H 100 H Respiratory Rate 18 21 19 Blood Pressure 145/86 H 150/86 H 140/81 Pulse Oximetry 96 90 L 12/03/19 02:00 12/03/19 03:00 12/03/19 03:56 Pulse Rate 101 H 100 H 100 H Respiratory Rate 20 22 18 Blood Pressure 144/89 H 142/83 H 142/83 H Pulse Oximetry 94 94 95 12/03/19 04:00 12/03/19 05:00 12/03/19 06:00 Pulse Rate 96 H 93 H 93 H Respiratory Rate 20 21 19 Blood Pressure 145/82 H 148/83 H 139/80 Pulse Oximetry 95 96 97 12/03/19 07:06 Pulse Rate 108 H Respiratory Rate 22 Blood Pressure 135/85 Pulse Oximetry Oxygen Delivery Method Room Air Narrative Exam Narrative: The patient is examined in his hospital bed resting quietly appears in no distress very sedated a very somnolent. He does have a slight tremulousness of his right hand primarily slightly on the left no other tremor noted. Mental status difficult stays very gets very sedated does open his eyes he does speak but his speech is very slurred and not understandable. Head shows no signs of trauma. ENT otherwise normal. Oropharynx was examined did not see laceration of tongue apparently is in the back. Lungs are entirely clear. Cardiac exam regular rhythm no murmur gallop. Carotids 2+ no bruits. Abdominal exam no hepatosplenomegaly liver is not palpated. S no tenderness (patient has history of elevated LFTs. In parentheses. Genitorectal exam. Not performed Calves are nontender he has no cyanosis clubbing or edema. Neurologic exam difficult to do it due to lack of cooperation. Cranial nerves 2-12 are grossly intact. SABRINA a period he has normal strength upper lower extremities did not test gait reflexes are separate symmetric Objective Labs Result Diagrams: 12/02/19 17:50 12/02/19 17:50 Labs: Laboratory Results - last 24 hr 12/02/19 12/02/19 12/02/19 17:50 17:50 17:50 WBC 11.0 RBC 4.38 L Hgb 15.4 Hct 45.5 MCV 104.0 H MCH 35.1 H MCHC 33.8 RDW 13.6 Plt Count 101 L Neut % (Auto) 76.5 H Lymph % (Auto) 13.2 L [place] % (Auto) 10.0 Eos % (Auto) 0.0 L Baso % (Auto) 0.3 Neut # (Auto) 8400 H Lymph # (Auto) 1500 [place] # (Auto) 1100 H Eos # (Auto) 0 Baso # (Auto) 0 Sodium 139 Potassium 4.2 Chloride 102 Carbon Dioxide 14 L BUN 10 Creatinine 0.72 Estimated GFR > 60.0 BUN/Creatinine Ratio 13.9 Glucose 154 H Calcium 9.9 Magnesium 1.9 Total Bilirubin 1.2 AST 195 H ALT 155 H Alkaline Phosphatase 100 Total Protein 8.7 H Albumin 5.3 H Globulin 3.4 Albumin/Globulin Ratio 1.6 Lipase 253 Urine Color Urine Appearance Urine pH Ur Specific [place] Urine Protein Urine Glucose (UA) Urine Ketones Urine Occult Blood Urine Nitrate Urine Bilirubin Urine Urobilinogen Ur Leukocyte Esterase Urine RBC Urine WBC Urine Bacteria Ur Culture Indicated? Nasal Screen MRSA (PCR) U Opiates 300ng/mL cut Ur Oxycodone Screen Urine Methadone Screen Ur Barbiturates Screen U Tricyclic Antidepress Ur Phencyclidine Scrn Ur Amphetamines Screen U Methamphetamines Scrn Ur MDMA Scrn (Ecstasy) U Benzodiazepines Scrn Urine Cocaine Screen U Marijuana (THC) Screen Ethyl Alcohol < 10 COVID-19 PCR 12/02/19 12/02/19 12/03/19 20:50 23:30 02:01 WBC RBC Hgb Hct MCV MCH MCHC RDW Plt Count Neut % (Auto) Lymph % (Auto) [place] % (Auto) Eos % (Auto) Baso % (Auto) Neut # (Auto) Lymph # (Auto) [place] # (Auto) Eos # (Auto) Baso # (Auto) Sodium Potassium Chloride Carbon Dioxide BUN Creatinine Estimated GFR BUN/Creatinine Ratio Glucose Calcium Magnesium Total Bilirubin AST ALT Alkaline Phosphatase Total Protein Albumin Globulin Albumin/Globulin Ratio Lipase Urine Color Urine Appearance Urine pH Ur Specific [place] Urine Protein Urine Glucose (UA) Urine Ketones Urine Occult Blood Urine Nitrate Urine Bilirubin Urine Urobilinogen Ur Leukocyte Esterase Urine RBC Urine WBC Urine Bacteria Ur Culture Indicated? Nasal Screen MRSA (PCR) Negative for mrsa U Opiates 300ng/mL cut Negative Ur Oxycodone Screen Positive H Urine Methadone Screen Negative Ur Barbiturates Screen Positive H U Tricyclic Antidepress Negative Ur Phencyclidine Scrn Negative Ur Amphetamines Screen Negative U Methamphetamines Scrn Negative Ur MDMA Scrn (Ecstasy) Negative U Benzodiazepines Scrn Negative Urine Cocaine Screen Negative U Marijuana (THC) Screen Negative Ethyl Alcohol COVID- PCR Negative 12/03/19 02:01 WBC RBC Hgb Hct MCV MCH MCHC RDW Plt Count Neut % (Auto) Lymph % (Auto) [place] % (Auto) Eos % (Auto) Baso % (Auto) Neut # (Auto) Lymph # (Auto) [place] # (Auto) Eos # (Auto) Baso # (Auto) Sodium Potassium Chloride Carbon Dioxide BUN Creatinine Estimated GFR BUN/Creatinine Ratio Glucose Calcium Magnesium Total Bilirubin AST ALT Alkaline Phosphatase Total Protein Albumin Globulin Albumin/Globulin Ratio Lipase Urine Color Yellow Urine Appearance Clear Urine pH 7.0 Ur Specific [place] 1.010 Urine Protein Trace H Urine Glucose (UA) Trace H Urine Ketones 1+ H Urine Occult Blood Trace-lysed Urine Nitrate Negative Urine Bilirubin Negative Urine Urobilinogen 0.2 Ur Leukocyte Esterase Negative Urine RBC None seen Urine WBC 0-1/hpf Urine Bacteria None seen Ur Culture Indicated? Cult not indicated Nasal Screen MRSA (PCR) U Opiates 300ng/mL cut Ur Oxycodone Screen Urine Methadone Screen Ur Barbiturates Screen U Tricyclic Antidepress Ur Phencyclidine Scrn Ur Amphetamines Screen U Methamphetamines Scrn Ur MDMA Scrn (Ecstasy) U Benzodiazepines Scrn Urine Cocaine Screen U Marijuana (THC) Screen Ethyl Alcohol COVID-19 PCR Labs reviewed Assessment & Plan Assessment & Plan narrative: 1. Patient presumably with the alcohol withdrawal symptoms jitteriness, tachycardia, and presumed seizure is consistent withdrawal seizure the emergency room. He currently is a relatively jittery and sedated from the medications however. Will continue him on the CIWA protocol for withdrawal anticipate being in the hospital probably for least a week. Discussion with social service later about the treatment of his alcoholism. 2. He has elevated LFTs. Presumably secondary to alcoholic hepatitis. Abdominal ultrasound will be ordered. 3. History of coronary artery disease apparently is stable not seen senior etl developer the recently. Will get an updated echocardiogram. 4. Chronic back pain seeing orthopedics for this epidural steroid may have helped unclear. Apparently is not a surgical candidate. 5. History of medication noncompliance he quit taking it atorvastatin as far as I can tell he is intermittently taking the Plavix apparently is continued on with metoprolol however. 6. Patient will have MRI of the head later this morning looking for other etiologies of her seizure
[2019-12-03] MEDS: METOPROLOL IR 25 MG TABLET 50 MG PO ×2 (10:13→11:40)
[2019-12-03] MEDS: FOLIC ACID 1 MG TABLET PO (12:00)
[2019-12-03] MEDS: MULTIVITAMIN 1 TABLET 1 TAB PO (12:58)
[2019-12-03] MEDS: ASPIRIN EC 81 MG TABLET PO (12:59)
--- NOTE | 2019-12-03 13:00 | PC.NURSE ---
Addendum entered by Irina Santiago R.N. 12/03/19 15:27: Call into DR Lara for topical nicotine patch and update on increase CIWA.await orders if any. Addendum entered by Irina Santiago R.N. 12/03/19 13:31: CIWA scores are up to 20 at this check, significantly more aggitated, picking things from the air, medicated per emar. Original Note: Pt alert to self and , forgetful and impulsive. BA active. Seizure pads in place. Pt reports pain to tongue from bite during seizure episode. Offer swish and spit with salt water, Pt has a tough time with anything other than short, simple instructions. at bedside, and is quite supportive and calming with Pt. reports it has been 2 days since his last drink. She is unsure why he decided to quite cold turkey. Dr Lara at bedside. Echo, MRI, and US ordered. Visable from nurses station due to increased impulsive behaviors. IVF infusing to x2 PIV.
--- NOTE | 2019-12-03 15:48 | DI.ECHO.S_ITS ---
[facility]---------+ [facility] +---------+ : : [address] : : : : [id number] : : : : Phone: [phone]+ Echocardiogram Report + + :Name: ANTOINETTE NOONAN Study Date: 12/04/2019 Height: 67 in : :[facility] Weight: 127 lb : : Gender: Male BSA: 1.7 m2 : :: 1955 Age: 64 yrs BP: 116/73 mmHg: :Reason For Study: CORONARY ARTERY DISEASE : :Ordering Physician: SCOTTY CASILLASPerformed By: Germaine Mar : :Referring: SCOTTY CASILLAS : + + Interpretation Summary The patient was in sinus tachycardia with heart rates between 112-121 bpm during the exam. The left ventricular cavity is small. The ejection fraction is estimated to be 35-40%. There is moderate global hypokinesis of the left ventricle. The right ventricle is normal in size and function. There is mild aortic regurgitation. The ascending aorta is mildly enlarged. There is mild luminal irregularity and echogenicity in the abdominal aorta, suggestive of aortic atherosclerotic disease. The IVC is of normal diameter and collapses less than 50% with a sniff. This suggests a right atrial pressure of 8 mm Hg. Procedure: A two-dimensional transthoracic echocardiogram with color flow and Doppler was performed. There is no prior echocardiogram noted for this patient. The study quality was technically adequate. The patient was in sinus tachycardia with heart rates between 112-121 bpm during the exam. Left Ventricle: The estimated left ventricular end diastolic volume is 33 ml. There is normal left ventricular wall thickness. The left ventricular cavity is small. There is no thrombus. A false chord is noted (normal variant). The ejection fraction is estimated to be 35-40%. There is moderate global hypokinesis of the left ventricle. Diastolic function could not be accurately assessed due to tachycardia. Right Ventricle: The right ventricle is normal in size and function. Atria: The left atrial size is normal. Right atrial size is normal. There is no Doppler evidence for an interatrial shunt. Mitral Valve: There is mild mitral annular calcification. There is no mitral regurgitation noted. Aortic Valve: The aortic valve is grossly normal. The aortic valve opens well. There is no aortic valve stenosis. There is mild aortic regurgitation. Tricuspid Valve: The tricuspid valve is not well visualized, but is grossly normal. Pulmonary artery pressures cannot be estimated because of the lack of a measurable TR jet velocity but the IVC suggests a CVP of around 8 mmHg. There is trace tricuspid regurgitation. Pulmonic Valve: The pulmonic valve is not well visualized. There is no pulmonic valvular regurgitation. Great Vessels: The aortic root is normal size. The ascending aorta is mildly enlarged. There is mild luminal irregularity and echogenicity in the abdominal aorta, suggestive of aortic atherosclerotic disease. The IVC is of normal diameter and collapses less than 50% with a sniff. This suggests a right atrial pressure of 8 mm Hg. Pericardium/ Pleura There is no pericardial effusion. There is an anterior echo-free space consistent with a fat pad. There is no pleural effusion. MMode/2D Measurements & Calculations LVIDd: 4.1 cm LVOT diam: 2.2 cm LVIDs: 3.3 cm Ao root diam: 3.8 cm FS: 18.5 % asc Aorta Diam: 3.8 cm IVSd: 0.78 cm Ao Arch Diam (Prox Trans): 3.6 cm LVPWd: 0.90 cm LV cummins. diameter/BSA (cm/m^2): 2.4 LV sys. diameter/BSA (cm/m^2): 2.0 LA A2 area: 15.9 cm2 RA long axis: 5.1 cm LA A4 area: 11.9 cm2 RA area: 13.7 cm2 LA length (vol): 5.0 cm RA vol: 31.4 ml LA vol: 31.9 ml RA : 18.9 ml/m2 LA vol index: 19.2 ml/m2 IVC diam: 1.2 cm RVD1 (basal): 3.0 cm TAPSE: 2.1 cm Doppler Measurements & Calculations Ao V2 max: 98.0 cm/sec LVOT Max Edmond: 86.8 cm/sec Ao V2 mean: 67.1 cm/sec LV V1 max P.0 mmHg Ao max P.8 mmHg LV V1 VTI: 16.2 cm Ao mean P.0 mmHg HARINDER(I,D): 4.4 cm2 Ao V2 VTI: 14.3 cm HARINDER(V,D): 3.4 cm2 sev ratio: 1.1 HARINDER indexed to BSA (cm^2/m^2): 2.6 Med Peak E' Edmond: 15.2 cm/sec PA V2 max: 66.7 cm/sec Lat Peak E' Edmond: 13.7 cm/sec PA V2 mean: 45.7 cm/sec PA mean P.99 mmHg PA pr(Accel): 53.3 mmHg SV(LVOT): 62.4 ml Reading Physician:03:44 PM
--- NOTE | 2019-12-03 15:59 | CM.SWNOTE ---
Addendum entered by MARI Herrera 12/03/19 16:03: According to H+P by Dr Lara: Patient has been drinking at least a pt of vodka a daily for perhaps 20 years. However this past 6 months due to several things that happened in his life he is up the dose to approximately a qt of vodka a day period and this is been going on for several months. He is have been discussing it discontinuing the alcohol but apparently he decided to stop it altogether 2 days ago. Original Note: SHIPFITTERS SUPERVISOR Note This SHIPFITTERS SUPERVISOR requested for consult to complete KORIN assessment for this 64 yo male, admitted w/ ETOH w/d symptoms after attempting sobriety cold turkey at home 2 days ago. Now in severe w/d, CIWA at 1529 was 15. According to chart review, patient has been a chronic and heavy alcohol drinker for approx 40+ years. This SHIPFITTERS SUPERVISOR unable to complete assessment today, patient unable to engage in meaningful conversation. Team will follow closely and plan to assess needs and DC options when appropriate. EARNESTINE
[2019-12-03] MEDS: NICOTINE 21 MG PATCH TOP (16:10)
--- NOTE | 2019-12-03 17:04 | PC.NURSE ---
Addendum entered by Luz Marina Thakkar R.N. 12/03/19 19:51: 1930- Patient heart rate up to 117, BP 212/98, patient reports feeling anxious. Ciwaa 14. Medicated per protocol, Labetolol 10mg given per order. Patient saturation remains 96% or above. is at bedside. Will monitor closely. Original Note: 1530- Richardson catheter placed. Patient is very restless and hallucinating. Ciwaa 15 medicated per protocol. Noted to have cream colored sputum. Suction set up and mouth care done. Patient picking in the air and states he is seeing things. See mar charting for Ciwaa and medication administration. 1700- Last Ciwaa 10. Patient is resting comfortably now. is at bedside. Vitals WNL. Seizure precautions in place. Will monitor closely.
[2019-12-03] MEDS: LABETALOL 20 MG/4 ML SYRINGE 10 MG IV (19:40)
[2019-12-04] VITALS (42 sets, daily range): BP systolic 92–178; BP diastolic 63–95; PULSE 101–132; RESP 14–47; TEMP 36.8–37.4; O2SAT 92–97
[2019-12-04] MEDS: LORazepam 2 MG/ML INJ IV ×9 (00:24→15:42)
[2019-12-04] MEDS: LABETALOL 20 MG/4 ML SYRINGE 10 MG IV (01:22)
[2019-12-04] MEDS: HALOPERIDOL 5 MG/ML VIAL 1 MG IV (02:36)
[2019-12-04] MEDS: DEXTROSE 5%-0.45% NS 1,000 ML 100 ML IV (02:42)
--- NOTE | 2019-12-04 03:36 | PC.NURSE ---
Addendum entered by Holly Stout R.N. 12/04/19 06:55: Patient able to expectorate a small amount of thick, randall sputum. Oral care and suction performed. Patient with audible upper airway congestion. Addendum entered by Holly Stout R.N. 12/04/19 06:22: Notified Dr. Lara of patient's potassium of 3.1 this AM, along with sodium level. Orders received. Addendum entered by Holly Stout R.N. 12/04/19 05:40: Since administration of Haldol, patient has been able to sleep well. Upon assessment, patient still very tremulous, with moist palms and disorientation but other symptoms have drastically improved. CIWA remains around 5-6. Patient's BP 116/73, HR 104, RR 28, sats 93% on RA. 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 Patient medicated with 1 mg IV Ativan at this time. Patient's at bedside. Patient's left at 2358. Patient became more restless, agitated and picking at things in the air that were not present. This RN medicated the patient 3 more times between 0010-4918 per CIWA protocol for scores ranging from 11-16. Patient stating to this RN I don't feel good. 0210 - Dr. Lara called and notified of patient's high CIWA score, still with significant withdraw symptoms (see charting) and hypertension despite PRN Labetalol administration. Orders received for increase dose of Labetalol and 1 mg IV Haldol. 0236 - Haldol administered. 0323 - Patient finally resting comfortably and able to sleep. BP 107/63, heart rate 100. CIWA score 5
[2019-12-04 04:54] LABS: Add Manual Diff / Slide Review NO; Basophils Absolute Auto 0 /uL (0-100); Basophils Percent Auto 0.2 % (0-2); Eosinophils Absolute Auto 0 /uL (0-450); Hematocrit 40.1 % (41-53); Lymphocytes Absolute Auto 1100 /uL (1100-4500); Lymphocytes Percent Auto 13.6 % (25-40); Mean Corpuscular HGB Conc 34.8 % (30-36); Mean Corpuscular Hemoglobin 35.1 PG (26-34); Mean Corpuscular Volume 100.7 fL (80-100); Monocytes Absolute Auto 700 /uL (0-900); Monocytes Percent Auto 8.1 % (3-14); Neutrophils Absolute Auto 6300 /uL (1500-7000); Neutrophils Percent Auto 78.1 % (50-75); Platelet Count 76 X10^3/uL (150-400); Red Blood Cell Count 3.98 X10^6/uL (4.5-5.9); Red Cell Distribution Width 13.6 % (11.6-14.8); White Blood Cell Count 8.1 X10^3/uL (4.5-11.0)
[2019-12-04 04:55] LABS: BUN Creatinine Ratio 7.8 (6-22); Blood Urea Nitrogen 5 mg/dL (9-20); Calcium 8.7 mg/dL (8.4-10.2); Carbon Dioxide 28 mmol/L (22-32); Chloride 96 mmol/L (98-107); Estimated Glomerular Filt Rate > 60.0 mL/min (>60); Glucose 158 mg/dL (80-110); HEMOLYSIS < 15 (0-50); Magnesium 1.7 mg/dL (1.6-2.3); Potassium 3.1 mmol/L (3.4-5.1); Sodium 129 mmol/L (137-145)
[2019-12-04] MEDS: POTASSIUM CHLORIDE 40 MEQ in DEXTROSE 5%-0.9% NS 1,000 ML 100 MEQ IV (08:08)
--- NOTE | 2019-12-04 09:05 | PM.PN.1 ---
Subjective Subjective Date Patient Seen: 12/04/19 Time Patient Seen: 09:05 Interval history: Alcohol withdrawal Patient and fairly tumultuous night. Required a significant amount of Ativan for sedation. He was given 1 mg of Haldol that seem to have a significant pause affect able to sleep for couple hours. Heart rate dropped and his blood pressure improved. This morning he is more agitated require more Ativan as per nursing report. No signs for seizures. Himself of denies any pain or any complaints although his cook verbalization is still somewhat garbled from the Ativan. Urine output has been adequate. Not taking anything orally Exam Vital Signs (past 8 hours): - 12/04/19 01:09 12/04/19 01:22 12/04/19 01:55 Pulse Rate 114 H 114 H 105 H Respiratory Rate 28 H 29 H Blood Pressure 155/72 H 155/72 H 155/72 H Pulse Oximetry 94 12/04/19 02:01 12/04/19 02:09 12/04/19 02:25 Pulse Rate 111 H 111 H 106 H Respiratory Rate 33 H 30 H Blood Pressure 178/94 H 178/94 H 178/94 H Pulse Oximetry 94 12/04/19 03:00 12/04/19 03:12 12/04/19 04:00 Pulse Rate 101 H 101 H 101 H Respiratory Rate 29 H 29 H 30 H Blood Pressure 107/63 107/63 106/68 Pulse Oximetry 92 94 12/04/19 05:00 12/04/19 06:00 12/04/19 07:00 Pulse Rate 105 H 103 H 108 H Respiratory Rate 33 H 28 H 29 H Blood Pressure 116/73 102/64 92/71 Pulse Oximetry 97 94 95 12/04/19 08:26 Pulse Rate 118 H Respiratory Rate 28 H Blood Pressure 167/83 H Pulse Oximetry Oxygen Delivery Method Room Air Oxygen Flow Rate 0 Narrative Exam Narrative: Patient is resting quietly in his hospital bed and appears in no distress so the is obviously jittery and doing random motions of his arms reaching out cetera. HEENT exam essentially normal mucous membranes in his mouth or dry. Lungs are clear. Cardiac exam regular rhythm no murmur gallop he does have a tachycardia heart rate is sinus rhythm approximately 110 has been stable at that. Blood pressure is been running of very quite variable. Abdominal exam no hepatosplenomegaly no masses no tenderness per Calves are nontender. He has no edema. He his mental status cranial nerves appear to be intact 0 obviously cannot do a very thorough exam. Cannot do mental status exam because of his sedation. He does of flex extend his feet when asked. Objective Labs Result Diagrams: 12/04/19 04:25 12/04/19 04:25 Labs: Laboratory Results - last 24 hr 12/04/19 12/04/19 04:25 04:25 WBC 8.1 RBC 3.98 L Hgb 14.0 Hct 40.1 L MCV 100.7 H D MCH 35.1 H MCHC 34.8 RDW 13.6 Plt Count 76 L Neut % (Auto) 78.1 H Lymph % (Auto) 13.6 L [place] % (Auto) 8.1 Eos % (Auto) 0.0 L Baso % (Auto) 0.2 Neut # (Auto) 6300 Lymph # (Auto) 1100 [place] # (Auto) 700 Eos # (Auto) 0 Baso # (Auto) 0 Sodium 129 L D Potassium 3.1 L Chloride 96 L Carbon Dioxide 28 BUN 5 L Creatinine 0.64 L Estimated GFR > 60.0 BUN/Creatinine Ratio 7.8 Glucose 158 H Calcium 8.7 Magnesium 1.7 labs from this morning is reviewed of significance his BUN is 5 creatinine 0.64 implying adequate hydration. Sodium however has dropped to 129 potassium is dropped to 3.1 and other significance his platelets have dropped to 76,000 Review of MRI showed no evidence for stroke did show changes consistent with the aging brain. Ultrasound showed hepatic steatosis but no apparent evidence of cirrhosis based on the ultrasound. Assessment & Plan Assessment & Plan narrative: 1. Alcohol withdrawal of being treated aggressively with Ativan. As per the CIWA protocol. Haldol did help with 1 dose. This morning he hit his appears to be neurologically the same as he was yesterday responds but with minimal verbalization. Still is very jittery at rest. No evidence for seizure. Pulmonary status has been adequate not requiring any supplemental oxygen. 2. Laboratory abnormalities include hyponatremia, hypokalemia, and platelets decreased. These have been responded with appropriate IV fluids we will discontinue his Lovenox because his platelets. 3. Discussed long-term management the his acute problem with expecting a minimal changes over the next 5 days more less. Then we also talked about the discharge planning with the inpatient rehab but yet too soon to call. 4. Consult to be placed with Dr. Limon hospitalist for management of the alcohol withdrawal protocol
--- NOTE | 2019-12-04 10:18 | PM.CN ---
History of Present Illness Consult details Date Patient Seen: 12/04/19 Time Patient Seen: 10:18 Chief complaint: Stop ETOH 2 days ago Reason for consult: EtOH withdrawal Requesting provider: Eduar Lara Narrative: Lyndon antonio is a 64 year old male with a past medical history of alcohol abuse and CAD who initially presented to the emergency room with a seizure secondary to alcohol withdrawal. According to his at bedside the patient had been drinking at least a pint of hard liquor daily for at least the past 6 months. He had been trying to cut down and said that he had stopped drinking approximately 2 days prior to his reported seizure. Shortly after arrival the patient started having tonic colonic seizures and was given Ativan and phenobarb with resolution of his symptoms. He had a CT scan of his head which showed a possible mass but this was not seen on follow-up MRI although the quality was suboptimal due to patient motion. Medicine was consulted by Dr. Lara today for assistance with management of alcohol withdrawal. Overnight the patient required multiple doses of Ativan and this morning was still quite tremulous, confused. He was also given a dose of Haldol 1 mg overnight as well. He is NPO currently given his mental status. Upon initial evaluation of the patient he was tachycardic, mildly hypertensive, tremulous and confused. This was markedly improved with a 65 mg dose of phenobarbital. Meds Home Medications and Allergies Home Medications Medication Instructions Recorded Confirmed Type aspirin 81 mg tablet,delayed 81 mg PO DAILY 09/10/17 12/03/19 History release atorvastatin 80 mg tablet 80 mg PO DAILY #90 tab 11/04/18 12/03/19 Rx metoprolol tartrate 25 mg tablet 50 mg PO DAILY #180 tab 11/04/18 12/03/19 Rx Allergies Allergy/AdvReac Type Severity Reaction Status Date / Time No Known Drug Allergies Allergy Verified 12/02/19 17:58 Review of Systems Review of Systems ROS: Yes unobtainable due to mental status Exam Vital Signs (past 8 hours): - 12/04/19 02:25 12/04/19 03:00 12/04/19 03:12 Temperature Pulse Rate 106 H 101 H 101 H Respiratory Rate 30 H 29 H 29 H Blood Pressure 178/94 H 107/63 107/63 Pulse Oximetry 92 12/04/19 04:00 12/04/19 05:00 12/04/19 06:00 Temperature Pulse Rate 101 H 105 H 103 H Respiratory Rate 30 H 33 H 28 H Blood Pressure 106/68 116/73 102/64 Pulse Oximetry 94 97 94 12/04/19 07:00 12/04/19 08:00 12/04/19 08:26 Temperature 99.4 F Pulse Rate 108 H 117 H 118 H Respiratory Rate 29 H 33 H 28 H Blood Pressure 92/71 167/83 H 167/83 H Pulse Oximetry 95 95 12/04/19 09:00 12/04/19 10:00 Temperature Pulse Rate 109 H 108 H Respiratory Rate 31 H 30 H Blood Pressure 110/69 111/71 Pulse Oximetry 95 94 Oxygen Delivery Method Room Air Oxygen Flow Rate 0 Narrative Exam Narrative: GENERAL APPEARANCE: Chronically ill-appearing, mildly anxious appearing, confused SKIN: Inspection of the skin reveals no rashes, ulcerations or petechiae. HEENT: Normocephalic atraumatic, extraocular muscles are intact, oropharynx is clear and mucous membranes are moist, neck is supple without adenopathy NECK: Supple and symmetric. There was no thyroid enlargement, and no tenderness, or masses were felt. CHEST: Normal AP diameter and normal contour without any kyphoscoliosis. LUNGS: Auscultation of the lungs revealed no wheezes, rhonchi, or rales. CARDIOVASCULAR: Tachycardic but regular, no murmurs, rubs, or gallops. ABDOMEN: Soft and nontender with normal bowel sounds. There is also mild distension. MUSCULOSKELETAL: There was no tenderness or effusions noted. Muscle strength and tone were normal. EXTREMITIES: No cyanosis, clubbing or edema. NEUROLOGIC: Alert, follows commands but slurring his words quite a bit and predominantly unintelligible responses. There are no focal motor deficits noted on exam. He is tremulous and has mild tongue fasciculations. Objective Labs Result Diagrams: 12/04/19 04:25 12/04/19 04:25 Labs: Laboratory Results - last 24 hr 12/04/19 12/04/19 04:25 04:25 WBC 8.1 RBC 3.98 L Hgb 14.0 Hct 40.1 L MCV 100.7 H D MCH 35.1 H MCHC 34.8 RDW 13.6 Plt Count 76 L Neut % (Auto) 78.1 H Lymph % (Auto) 13.6 L [place] % (Auto) 8.1 Eos % (Auto) 0.0 L Baso % (Auto) 0.2 Neut # (Auto) 6300 Lymph # (Auto) 1100 [place] # (Auto) 700 Eos # (Auto) 0 Baso # (Auto) 0 Sodium 129 L D Potassium 3.1 L Chloride 96 L Carbon Dioxide 28 BUN 5 L Creatinine 0.64 L Estimated GFR > 60.0 BUN/Creatinine Ratio 7.8 Glucose 158 H Calcium 8.7 Magnesium 1.7 Assessment & Plan Assessment & Plan narrative: Lyndon Antonio is a 64 year old male with a past medical history of alcohol abuse and CAD who initially presented to the emergency room with a seizure secondary to alcohol withdrawal. Medicine was consulted for assistance with management due to severity of alcohol withdrawal and delirium tremens. 1. Alcohol withdrawal with delirium tremens and withdrawal seizure, present on admission -patient had multiple doses of Ativan but still remained tremulous. This improved with 65 mg of phenobarbital. Will continue Ativan per [facility] protocol with as needed phenobarbital. -will start high dose IV thiamine replacement for possible wernicke's, 500 mg q8 hr x2 days, if response continue 250 mg x5 days. 2. CAD - continue home asa, lipitor, metoprolol once able to tolerate PO intake. Consider metoprolol 5 mg q6 standing if unable to tolerate orals. - TTE performed but pending read. 3. Thrombocytopenia, present on admission - likely secondary to EtOH abuse. Continue to follow. 4. Hyponatremia 5. Hypokalemia 6. Alcoholic hepatitis - improving LFTs since admission. Will continue to follow. Hospitalist team will continue to follow this patient. Do not hesitate to contact us with additional questions. COVID-19 COVID-19 status: Negative
[2019-12-04] MEDS: PHENobarbital 130 MG/ML VIAL 65 MG IV ×2 (10:58→13:43)
--- NOTE | 2019-12-04 12:02 | OT.IPNOTE ---
Discussed patient with Nursing who reports not appropriate for Evaluation this date. Will follow-up to complete when appropriate.
[2019-12-04 12:05] LABS: Alanine Aminotransferase 102 IU/L (<50); Albumin 3.9 g/dL (3.5-5.0); Albumin Globulin Ratio 1.3 (1.0-2.8); Alkaline Phosphatase 80 U/L (38-126); Aspartate Aminotransferase 120 IU/L (17-59); Bilirubin Total 1.4 mg/dL (0.2-1.3); Bilirubin Unconjugated 1.1 mg/dL (0.0-1.1); HEMOLYSIS 17 (0-50); Total Protein 6.9 g/dL (6.3-8.2)
--- NOTE | 2019-12-04 13:00 | PT-IP ANOTE ---
Checked with nurse and stated that pt is not appropriate to do PT at this time and is actively withdrawing from alcohol. checked regarding bed rest order and stated that pt will continue to be on bed rest at this time.
[2019-12-04] MEDS: THIAMINE 500 MG in SODIUM CHLORIDE 0.9% 50 ML 220 ML IV ×2 (13:28→21:00)
[2019-12-04 14:09] LABS: HEMOLYSIS < 15 (0-50); Potassium 3.7 mmol/L (3.4-5.1)
--- NOTE | 2019-12-04 14:30 | CM.DPC ---
DCp continued: EMR reviewed: patient is unable to complete assessment today, patient unable to engage in meaningful conversation. Attempted to meet with patient but he is not able to communicate and carry on a conversation and let his needs and wants be known at this time. Cm department will continue to follow and work on D/C planning and [employer] assessment when patient is more alert and oriented. Sommer Pruett RN
--- NOTE | 2019-12-04 14:41 | PT-IP ANOTE ---
checked with nurse and pt continues to be on hold for PT at this time. stated that pt is still actively alcohol withdrawing.
[2019-12-04] MEDS: LORazepam 20 MG in SODIUM CHLORIDE 0.9% 100 ML 10 ML IV (15:55)
[2019-12-04] MEDS: NICOTINE 21 MG PATCH TOP (15:56)
[2019-12-04] MEDS: SODIUM CHLORIDE 0.9% 1,000 ML 100 ML IV (18:12)
[2019-12-04] MEDS: METOPROLOL TARTRATE 5 MG/5 ML INJ IV ×2 (18:18→23:36)
[2019-12-04] MEDS: SODIUM CHLORIDE 0.9% 500 ML 1000 ML IV ×2 (18:26→21:00)
[2019-12-04 20:26] LABS: NT-proBNP (BNP-Adult 18+) 650 pg/mL (<125); Troponin I < 0.012 ng/mL (0.01-0.034)
[2019-12-04] MEDS: LORazepam 20 MG in SODIUM CHLORIDE 0.9% 100 ML 25 ML IV (21:26)
--- NOTE | 2019-12-04 23:10 | PC.NURSE ---
End of shift note: Patient is on Ativan drip as ordered by Dr. Limon. Drip was started at 5ml/hr and titrated up to 25ml/hr based on CIWA scores and in discussion with Dr. Limon. Patient remains tremulous but is calm. HR at beginning of shift was 130's, after IV metoprolol and 500ml NS bolus it came down to 115's for 2hrs and then returned to mid 12's, another 500ml NS bolus was given and HR came down to low 120's. BP range 120-150's SBP. Richardson in place, 700ml+ charisse output. Patient is oriented to name and will squeeze hands when instructed but cannot follow other instructions or verbalize answers to direct questions. Seizure precautions in place, patient remains NPO. at bedside.
[2019-12-05] VITALS (55 sets, daily range): BP systolic 103–182; BP diastolic 61–98; PULSE 93–122; RESP 18–43; TEMP 36.8–38.7; O2SAT 72–98
[2019-12-05] MEDS: LORazepam 20 MG in SODIUM CHLORIDE 0.9% 100 ML 10 ML IV (02:39)
[2019-12-05 04:26] LABS: Add Manual Diff / Slide Review NO; Basophils Absolute Auto 100 /uL (0-100); Basophils Percent Auto 0.5 % (0-2); Eosinophils Absolute Auto 0 /uL (0-450); Eosinophils Percent Auto 0.1 % (2-4); Hematocrit 41.9 % (41-53); Hemoglobin 14.4 g/dL (13.5-17.5); Lymphocytes Absolute Auto 1400 /uL (1100-4500); Lymphocytes Percent Auto 13.5 % (25-40); Mean Corpuscular HGB Conc 34.4 % (30-36); Mean Corpuscular Volume 101.7 fL (80-100); Monocytes Absolute Auto 1000 /uL (0-900); Monocytes Percent Auto 9.3 % (3-14); Neutrophils Absolute Auto 8000 /uL (1500-7000); Neutrophils Percent Auto 76.6 % (50-75); Platelet Count 86 X10^3/uL (150-400); Red Blood Cell Count 4.12 X10^6/uL (4.5-5.9); Red Cell Distribution Width 13.5 % (11.6-14.8); White Blood Cell Count 10.4 X10^3/uL (4.5-11.0)
[2019-12-05 04:33] LABS: BUN Creatinine Ratio 9.4 (6-22); Blood Urea Nitrogen 6 mg/dL (9-20); Calcium 8.5 mg/dL (8.4-10.2); Carbon Dioxide 22 mmol/L (22-32); Chloride 110 mmol/L (98-107); Estimated Glomerular Filt Rate > 60.0 mL/min (>60); Glucose 106 mg/dL (80-110); HEMOLYSIS 19 (0-50); Magnesium 1.7 mg/dL (1.6-2.3); Potassium 3.5 mmol/L (3.4-5.1); Sodium 136 mmol/L (137-145)
--- NOTE | 2019-12-05 04:42 | DI.RAD.S_ITS ---
PROCEDURE: XR CHEST 1V INDICATIONS: Chest congestion TECHNIQUE: One view of the chest was acquired. COMPARISON: [facility], CR, XR CHEST 2V, 01/29/2019, 13:19. FINDINGS: Surgical changes and devices: None. Lungs and pleura: Lung volumes are low. Lungs are clear. No pleural effusions or pneumothorax. Mediastinum: Mediastinal contours appear normal. Heart size is normal. Bones and chest wall: No suspicious bony lesions. Overlying soft tissues appear unremarkable. IMPRESSION: No acute cardiopulmonary findings. Dictated by: Kelsey Rome M.D. on 12/05/2019 at 8:22 Approved by: Kelsey Rome M.D. on 12/05/2019 at 8:23
[2019-12-05] MEDS: FUROSEMIDE 20 MG/2 ML VIAL IV (05:15)
[2019-12-05 05:18] LABS: NT-proBNP (BNP-Adult 18+) 580 pg/mL (<125)
--- NOTE | 2019-12-05 05:30 | PC.NURSE ---
Addendum entered by Holly Stout R.N. 12/05/19 05:57: Patient titrated up to 5L NC 02 sats 94%. Patient still remains obtunded at this time (no further sedating BP meds given. IV Ativan discontinued). BP 165/89, HR 107 BPM, RR 31. Patient has been turned and repositioned Q2 hours throughout the shift to prevent skin breakdown and promote comfort. Oral care has been performed. Current CIWA score 5. Mild tremors and beaded sweat on forehead present. Patient's Isabell has remained at bedside all night. Will continue to closely monitor patient. 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 IV Ativan drip has been titrated down. Patient remains tremulous, but will follow commands when prompted. Upon 0400 reassessment, patient's lung sounds worse - expiratory and inspiratory ronchi present. Patient with upper airway wheezing. LINDA Landon notified. Orders received for chest xray. 0450 - After completion of xray, patient desaturing with sats in low 70's. Patient placed on 3L NC. RT called and notified. LINDA Landon remains at bedside. 0455 - Giuseppe, RT at bedside NT suctioning patient. Large amounts of cream/thick sputum removed. Patient with labored breathing, RR in 40-50's. 0515- 20 mg IV Lasix given per Francisco Salazar. Sputum culture sent. IV fluids running. IV Ativan infusion stopped at 0458. Patient still tachypnic but on 3L NC. Patient with RASS -3 currently.
[2019-12-05] MEDS: ALBUTEROL/IPRATROPIUM 3 ML AMPUL INH ×3 (05:39→20:05)
[2019-12-05] MEDS: SODIUM CHLORIDE 0.9% 1,000 ML 100 ML IV ×2 (05:42→16:57)
[2019-12-05] MEDS: METOPROLOL TARTRATE 5 MG/5 ML INJ IV ×4 (05:45→22:25)
[2019-12-05] MEDS: THIAMINE 500 MG in SODIUM CHLORIDE 0.9% 50 ML 220 ML IV ×3 (05:45→20:41)
--- NOTE | 2019-12-05 05:46 | P.EN_ITS ---
Event Note Date Patient Seen: 12/05/19 Time Patient Seen: 05:46 Event Note: Patient care update: Through the course the evening the patient had been increasingly tachycardic while the CIWA score was going down there for a saline bolus of 500 cc x1 was administered with reduction heart rate back into the 110s from the 120's. The Ativan drip was being titrated down with the patient's CIWA score below 5. The patient became more arousable from a RASS score of -3 to light sedation -[facility] time he became more tachypneic and tachycardic once more nasal cannula oxygen at 2 liters/minute was started with improvement oxygen saturation to the mid 90s. On re-evaluation patient is breath sounds had acutely desaturated with respiratory rate up to 50 coarse central breath sounds an O2 sat dipping to 68 with coarse breath sounds and expiratory wheezing and bibasilar crackles in the bases. -patient was presently on Ativan drip at 2.9 mg an hour which is discontinued. -patient was stimulated and aggressively suctioned orally -ordered chest x-ray and repeat proBNP. -20 mg of Lasix was administered. -respiratory therapy was called and the patient was NT suctioned with return copious thick creamy colored sputum. -endotracheal sputum sample was obtained and sent for culture. Ordered procalcitonin. -albuterol nebulizer treatment was administered. -His morning labs demonstrated increased white count from 8.1-10.4 with evidence of evolving left shift with increase in neutrophils. -start Unasyn 3 g IV every 6 hours for impaired treatment of probable aspiration pneumonia. The patient appears to have combination of mild pulmonary edema as well as probable aspiration pneumonia secondary to previous seizure events. Patient demonstrates decreased respiratory rate and remains afebrile but remains tachycardic bleed to be consequence of his alcohol withdrawal.
[2019-12-05 05:59] LABS: Procalcitonin 0.08 ng/mL (<0.5)
[2019-12-05] MEDS: AMPICILLIN/SULBACTAM 3 GM 3 GM in SODIUM CHLORIDE 0.9% 100 ML IV ×3 (06:07→18:34)
--- NOTE | 2019-12-05 08:21 | PT-IP ANOTE ---
PT reviewed chart and discussed pt with JOCKEY AGENT. Pt remains unable to participate in PT evaluation. Will follow up 12/05/19 PM for changes in pt condition.
--- NOTE | 2019-12-05 10:14 | P.PN_ITS ---
Subjective Subjective Date Patient Seen: 12/05/19 Time Patient Seen: 10:14 Interval history: Alcohol withdrawal. Patient apparently had loco to will trust night. Became much more restless and then required sedation then became over-sedated. Has been off the Ativan since about 430 this morning. Also apparently has some respiratory difficulties and was in the process of being evaluated for intubation. Evaluation of felt he probably had upper respiratory infection perhaps aspiration pneumonitis placed on antibiotics and respiratory treatment did require supplemental oxygen that he as he does now. No seizures. Jitteriness has decreased but when it occurs it is as he has been in the past. Apparently actually spoke wears yesterday that were understandable. Requiring fair amount of upper airway suctioning that apparently tolerates well. Has developed a fever recently. Exam Vital Signs (past 8 hours): - 12/05/19 03:03 12/05/19 04:00 12/05/19 04:11 Temperature 98.2 F Pulse Rate 114 H 121 H Respiratory Rate 34 H 38 H Blood Pressure 153/90 H 151/89 H Pulse Oximetry 96 94 72 L 12/05/19 05:00 12/05/19 05:30 12/05/19 05:56 Temperature Pulse Rate 122 H 120 H Respiratory Rate 22 Blood Pressure 165/89 H Pulse Oximetry 89 L 94 94 12/05/19 06:00 12/05/19 06:38 12/05/19 06:51 Temperature Pulse Rate 107 H Respiratory Rate 31 H Blood Pressure 103/69 Pulse Oximetry 94 96 98 12/05/19 06:55 12/05/19 07:00 12/05/19 07:55 Temperature Pulse Rate 110 H 110 H 115 H Respiratory Rate 38 H 39 H 40 H Blood Pressure 124/80 Pulse Oximetry 97 97 96 12/05/19 08:00 12/05/19 08:55 12/05/19 09:00 Temperature 98.4 F 101.7 F H Pulse Rate 115 H 121 H 121 H Respiratory Rate 43 H 35 H 35 H Blood Pressure 137/85 140/61 Pulse Oximetry 96 95 95 12/05/19 09:48 Temperature Pulse Rate 120 H Respiratory Rate 31 H Blood Pressure Pulse Oximetry 94 Oxygen Delivery Method Nasal Cannula Oxygen Flow Rate 2 Narrative Exam Narrative: The patient is resting quietly in his bed a breathing easily and appears in no distress very minimal spontaneous motion since he no tremor or twitching his. HEENT is unremarkable. Chest exam is not taking deep breaths does not respond the request. Cardiac exam regular rhythm no murmur gallop. Abdominal exam no masses no tenderness Neurologic exam cranial nerves 2-12 are grossly intact He has plantar response to a Babinski. Withdraws appropriately Objective Labs Result Diagrams: 12/05/19 04:15 12/05/19 04:15 Labs: Laboratory Results - last 24 hr 12/04/19 12/04/19 12/04/19 04:25 13:40 19:40 WBC RBC Hgb Hct MCV MCH MCHC RDW Plt Count Neut % (Auto) Lymph % (Auto) [place] % (Auto) Eos % (Auto) Baso % (Auto) Neut # (Auto) Lymph # (Auto) [place] # (Auto) Eos # (Auto) Baso # (Auto) Sodium Potassium 3.7 Chloride Carbon Dioxide BUN Creatinine Estimated GFR BUN/Creatinine Ratio Glucose Calcium Magnesium Total Bilirubin 1.4 H Conjugated Bilirubin 0.0 Unconjugated Bilirubin 1.1 AST 120 H ALT 102 H Alkaline Phosphatase 80 Troponin I < 0.012 NT-Pro-B Natriuret Pep 650 H Total Protein 6.9 Albumin 3.9 Globulin 3.0 Albumin/Globulin Ratio 1.3 Procalcitonin 12/05/19 12/05/19 12/05/19 04:15 04:15 04:15 WBC 10.4 RBC 4.12 L Hgb 14.4 Hct 41.9 MCV 101.7 H MCH 35.0 H MCHC 34.4 RDW 13.5 Plt Count 86 L Neut % (Auto) 76.6 H Lymph % (Auto) 13.5 L [place] % (Auto) 9.3 Eos % (Auto) 0.1 L Baso % (Auto) 0.5 Neut # (Auto) 8000 H Lymph # (Auto) 1400 [place] # (Auto) 1000 H Eos # (Auto) 0 Baso # (Auto) 100 Sodium 136 L Potassium 3.5 Chloride 110 H Carbon Dioxide 22 BUN 6 L Creatinine 0.64 L Estimated GFR > 60.0 BUN/Creatinine Ratio 9.4 Glucose 106 Calcium 8.5 Magnesium 1.7 Total Bilirubin Conjugated Bilirubin Unconjugated Bilirubin AST ALT Alkaline Phosphatase Troponin I NT-Pro-B Natriuret Pep 580 H Total Protein Albumin Globulin Albumin/Globulin Ratio Procalcitonin 12/05/19 04:15 WBC RBC Hgb Hct MCV MCH MCHC RDW Plt Count Neut % (Auto) Lymph % (Auto) [place] % (Auto) Eos % (Auto) Baso % (Auto) Neut # (Auto) Lymph # (Auto) [place] # (Auto) Eos # (Auto) Baso # (Auto) Sodium Potassium Chloride Carbon Dioxide BUN Creatinine Estimated GFR BUN/Creatinine Ratio Glucose Calcium Magnesium Total Bilirubin Conjugated Bilirubin Unconjugated Bilirubin AST ALT Alkaline Phosphatase Troponin I NT-Pro-B Natriuret Pep Total Protein Albumin Globulin Albumin/Globulin Ratio Procalcitonin 0.08 labs reviewed as noted his white count is increased. He has a slightly elevated BNP. Electrolytes have improved Renal function remains stable Chest x-ray reviewed no evidence for respiratory infection however patient is not taking deep breath Echocardiogram done yesterday shows ejection fraction between 35 40%. He has global hypokinesia of the left ventricle no particular valve disorder Assessment & Plan Assessment & Plan narrative: 1. Alcohol withdrawal issues continue. Has sedation has been a challenge as expected. It in between an adequate amount versus too much. He currently is without any Ativan at this time. Presumably he will require some eventually. Question remains about the whether not intubation would be of value. He is being evaluated for same by hospitalist service. Treatment still is remain the same with Ativan as stated his not use phenobarb or Haldol recently. 2. 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 He is responding it is nasal oxygen and suctioning. He was placed on Unasyn for antibiotic coverage and sputum was obtained. 3. Echocardiogram certainly is concerning a probably has some sort of cardiomyopathy may well be alcohol induced. He has been given Lasix to help with any fluid retention any evidence for congestive heart failure he did have elevated BNP cell is questionable. 4. Patient currently has a fever being treated for same. 5. Urine output has been adequate 6. Patient will continue with observation for his alcohol withdrawal currently is off all sedation. The additionally his pulmonary status will be monitored.
--- NOTE | 2019-12-05 13:48 | PC.NURSE ---
Day Shift Note Pt scored CIWA of 6 on morning assessment and a RASS of -1. Sedated but does open eyes to request and is able to follow some commands. Speech is delayed and garbled, difficult to understand. Unable to make needs known at this time. Oriented to self only. Initially on 2L NC today with SpO2 95-97%, lung sounds coarse with exp. rhonchi to upper airways. Pt weaned to RA by this afternoon with improvement of lung sounds noted. Spo2 at 94%. RR in the upper 20s to 30s bpm and breathing does appear labored. Oral suctioning of thick randall secretions, no NT suction required at this time. Axillary temp at 0855 101.7, decreased to 100.6 an hour later with no intervention. Dr. Lara notified. ST in the 118-120 bpm range, decreasing to 100-110 bpm by this afternoon. Afternoon CIWA of 2. No Ativan given during this shift. Seizure pads remain in place, bed alarm on. Turning pt every 2 hours, buttocks is erythemic but blanchable. Richardson catheter draining dark charisse urine. , Isabell, is at bedside.
--- NOTE | 2019-12-05 14:05 | CM.DANOTE ---
Per MD, pt had sedation reduced and discontinued and had to be suctioned by RT overnight with likely aspiration pneumonia from seizure activity. Pt remains on 5L oxygen and CIWA 5 with tremors and mostly obtunded still today. SW met bedside with pt (who did not open his eyes or participate in conversation as he is still not medically appropriate for discussion) and spouse who confirms they live at home in [place] and pt has is independent with ADL's at baseline but has become increasingly weak with near falls a couple weeks leading up to being admitted to the hospital. Pt has a long hx of ETOH abuse and spouse denies that pt has any hx of CD treatment (either inpt or outpt) and did attempt to participate in some AA meetings a few years ago. Spouse states that they had begun to seriously talk about Inpt CD tx and pt attempted to quit on his own which led to his withdrawals and seizure activity. Spouse states that pt is agreeable with Inpt tx when stable but SW unable to confirm with pt at this time as he is obtunded. SW discussed with spouse the process of Inpt CD tx and typically the need for a KORIN assessment prior to being accepted into Inpt CD tx and she is agreeable to bedside assessment if possible through [email or web address] [facility]. SW also discussed the need for PT eval once pt more medically appropriate to confirm he can be independent with ADL's and ambulation before Inpt tx could accept him and if pt far below baseline he may need SNF prior to Inpt CD tx. Spouse aware and very appreciative of the information and coordination. Spouse denies that pt has any hx of SNF or HH but if needed they would be agreeable. Spouse works flight crew time clerk but is remote working and therefore can be bedside with pt often and still complete work readily from the hospital or her car in the parking lot. Plan: SW to follow tomorrow to see if pt more medically appropriate to confirm he is agreeable with Inpt CD tx and for PT to eval and confirm pt would be independent enough for Inpt CD tx vs SNF at d/c. SW to call [facility] [phone] to inquire about bedside KORIN assessment. MARI Mcgee
--- NOTE | 2019-12-05 14:51 | PM.PN.1 ---
Subjective Subjective Date Patient Seen: 12/05/19 Time Patient Seen: 08:30 Interval history: Lyndon Antonio is a 64-year-old male who was admitted after an alcohol withdrawal seizure and has subsequently developed delirium tremens. Overnight the patient had increasing amounts of secretions and was increasingly sedated. Ativan drip was ultimately titrated off and he now remains on intermittent dosing per [facility] protocol. Unasyn was started for possible aspiration. He has not received and doses of ativan during the morning shift and remains calm. Heart rate improved early afternoon to low 100s. Exam Vital Signs (past 8 hours): - 12/05/19 06:55 12/05/19 07:00 12/05/19 07:55 Temperature Pulse Rate 110 H 110 H 115 H Respiratory Rate 38 H 39 H 40 H Blood Pressure 124/80 Pulse Oximetry 97 97 96 12/05/19 08:00 12/05/19 08:55 12/05/19 09:00 Temperature 98.4 F 101.7 F H Pulse Rate 115 H 121 H 121 H Respiratory Rate 43 H 35 H 35 H Blood Pressure 137/85 140/61 Pulse Oximetry 96 95 95 12/05/19 09:48 12/05/19 09:55 12/05/19 10:00 Temperature 100.2 F H Pulse Rate 120 H 120 H 121 H Respiratory Rate 31 H 35 H 36 H Blood Pressure 132/82 Pulse Oximetry 94 95 95 12/05/19 10:50 12/05/19 11:00 12/05/19 11:50 Temperature 100.7 F H 100.5 F H Pulse Rate 120 H 121 H 117 H Respiratory Rate 31 H 32 H 33 H Blood Pressure 118/79 Pulse Oximetry 96 96 97 12/05/19 12:00 12/05/19 12:28 12/05/19 12:55 Temperature 98.7 F Pulse Rate 119 H 101 H Respiratory Rate 35 H 31 H Blood Pressure 121/74 Pulse Oximetry 94 94 95 12/05/19 13:00 12/05/19 13:50 12/05/19 14:00 Temperature 99.1 F Pulse Rate 100 H 101 H 101 H Respiratory Rate 31 H 30 H 30 H Blood Pressure 119/80 141/91 H Pulse Oximetry 95 95 95 Oxygen Delivery Method Room Air Oxygen Flow Rate 0 Narrative Exam Narrative: GENERAL APPEARANCE: Chronically ill-appearing, mildly anxious appearing, confused SKIN: Inspection of the skin reveals no rashes, ulcerations or petechiae. HEENT: Normocephalic atraumatic, extraocular muscles are intact, oropharynx is clear and mucous membranes are moist, neck is supple without adenopathy NECK: Supple and symmetric. There was no thyroid enlargement, and no tenderness, or masses were felt. CHEST: Normal AP diameter and normal contour without any kyphoscoliosis. LUNGS: Auscultation of the lungs revealed no wheezes, rhonchi, or rales. CARDIOVASCULAR: Tachycardic but regular, no murmurs, rubs, or gallops. ABDOMEN: Soft and nontender with normal bowel sounds. There is also mild distension. MUSCULOSKELETAL: There was no tenderness or effusions noted. Muscle strength and tone were normal. EXTREMITIES: No cyanosis, clubbing or edema. NEUROLOGIC: Alert, follows commands but slurring his words quite a bit and predominantly unintelligible responses. There are no focal motor deficits noted on exam. He is tremulous and has mild tongue fasciculations. Objective Labs Result Diagrams: 12/05/19 04:15 12/05/19 04:15 Labs: Laboratory Results - last 24 hr 12/04/19 12/05/19 12/05/19 19:40 04:15 04:15 WBC 10.4 RBC 4.12 L Hgb 14.4 Hct 41.9 MCV 101.7 H MCH 35.0 H MCHC 34.4 RDW 13.5 Plt Count 86 L Neut % (Auto) 76.6 H Lymph % (Auto) 13.5 L [place] % (Auto) 9.3 Eos % (Auto) 0.1 L Baso % (Auto) 0.5 Neut # (Auto) 8000 H Lymph # (Auto) 1400 [place] # (Auto) 1000 H Eos # (Auto) 0 Baso # (Auto) 100 Sodium 136 L Potassium 3.5 Chloride 110 H Carbon Dioxide 22 BUN 6 L Creatinine 0.64 L Estimated GFR > 60.0 BUN/Creatinine Ratio 9.4 Glucose 106 Calcium 8.5 Magnesium 1.7 Troponin I < 0.012 NT-Pro-B Natriuret Pep 650 H Procalcitonin 12/05/19 12/05/19 04:15 04:15 WBC RBC Hgb Hct MCV MCH MCHC RDW Plt Count Neut % (Auto) Lymph % (Auto) [place] % (Auto) Eos % (Auto) Baso % (Auto) Neut # (Auto) Lymph # (Auto) [place] # (Auto) Eos # (Auto) Baso # (Auto) Sodium Potassium Chloride Carbon Dioxide BUN Creatinine Estimated GFR BUN/Creatinine Ratio Glucose Calcium Magnesium Troponin I NT-Pro-B Natriuret Pep 580 H Procalcitonin 0.08 Assessment & Plan Assessment & Plan narrative: Lyndon Antonio is a 64 year old male with a past medical history of alcohol abuse and CAD who initially presented to the emergency room with a seizure secondary to alcohol withdrawal. Medicine was consulted for assistance with management due to severity of alcohol withdrawal and delirium tremens. 1. Alcohol withdrawal with delirium tremens and withdrawal seizure, present on admission - overnight on ativan gtt with increased sedation which was titrated off. Increasing secretions were noted and infusion was discontinued. Unasyn was started over concern for possible aspiration given tachypnea which could be from volume overload or aspiration. Low threshold to discontinue as no overt fever or leukocytosis. -continue ativan per [facility] protocol -continue high dose IV thiamine, if no improvement after 2 days unlikely to be a response. 2. CAD - continue home asa, lipitor, metoprolol once able to tolerate PO intake. Consider metoprolol 5 mg q6 standing if unable to tolerate orals. - TTE as noted below. 3. possibly acute heart failure with reduced ejection fraction, unknown chronicity - TTE noted EF to be around 30% with small cavity size. HR likely compensating for low output at this time while in DTs. - will need to maximize medical therapy when more alert. No recent TTE noted. Continue IV metoprolol q6 hours. - proBNP 580 early this AM, given 1 dose of lasix for increased tachypnea with improvement following. 4. Thrombocytopenia, present on admission, stable - likely secondary to EtOH abuse. Continue to follow. 5. Hyponatremia, resolved 6. Hypokalemia, improved. 7. Alcoholic hepatitis - improving LFTs since admission. Will continue to follow. Hospitalist team will continue to follow this patient. Do not hesitate to contact us with additional questions.
--- NOTE | 2019-12-05 15:25 | PT-IP ANOTE ---
Spoke with SCAN COORDINATOR who notes latest CIWA score is 9 and RASS -1. Pt remains unable to meaningfully participate with PT. Will follow up morning of 12/06/19. If pt remains unable to participate, will discharge PT order and await new orders if pt condition changes.
[2019-12-05] MEDS: NICOTINE 21 MG PATCH TOP (16:29)
[2019-12-05] MEDS: LORazepam 2 MG/ML INJ IV ×5 (17:57→22:25)
--- NOTE | 2019-12-05 21:32 | PC.NURSE ---
Evening shift note: CIWA scores have ranged from 7-16, Ativan administered per protocol. Patient remains tremulous, and has moments of agitation, but able to ask/answer questions later in shift. HR at beginning of shift was 110 and has ranged from 110-95 at the lowest. BP range 120-160's. Richardson in place, 700+ clear, charisse output. Patient is oriented to name and will squeeze hands when instructed, has moments where he is able to ask/answer some questions, does become upset and agitated when he is told he is not able to go home yet. Seizure precautions in place, patient remains NPO, due to aspiration risk. at bedside. Bed low and locked, call light within reach, will continue to monitor.
[2019-12-06] VITALS (46 sets, daily range): BP systolic 122–167; BP diastolic 76–95; PULSE 84–109; RESP 11–36; TEMP 36.4–37.4; O2SAT 92–98
[2019-12-06] MEDS: AMPICILLIN/SULBACTAM 3 GM 3 GM in SODIUM CHLORIDE 0.9% 100 ML IV ×2 (00:03→05:02)
[2019-12-06] MEDS: THIAMINE 500 MG in SODIUM CHLORIDE 0.9% 50 ML 220 ML IV (04:17)
[2019-12-06 04:57] LABS: Add Manual Diff / Slide Review NO; Basophils Absolute Auto 100 /uL (0-100); Basophils Percent Auto 0.6 % (0-2); Eosinophils Absolute Auto 0 /uL (0-450); Eosinophils Percent Auto 0.2 % (2-4); Hematocrit 39.6 % (41-53); Hemoglobin 13.5 g/dL (13.5-17.5); Lymphocytes Absolute Auto 1200 /uL (1100-4500); Lymphocytes Percent Auto 12.4 % (25-40); Mean Corpuscular HGB Conc 34.1 % (30-36); Mean Corpuscular Volume 102.6 fL (80-100); Monocytes Absolute Auto 900 /uL (0-900); Monocytes Percent Auto 9.6 % (3-14); Neutrophils Absolute Auto 7400 /uL (1500-7000); Neutrophils Percent Auto 77.2 % (50-75); Platelet Count 94 X10^3/uL (150-400); Red Blood Cell Count 3.86 X10^6/uL (4.5-5.9); Red Cell Distribution Width 13.2 % (11.6-14.8); White Blood Cell Count 9.5 X10^3/uL (4.5-11.0)
[2019-12-06] MEDS: SODIUM CHLORIDE 0.9% 1,000 ML 100 ML IV ×2 (05:00→15:41)
[2019-12-06] MEDS: METOPROLOL TARTRATE 5 MG/5 ML INJ IV ×2 (05:02→12:59)
[2019-12-06 05:11] LABS: BUN Creatinine Ratio 17.5 (6-22); Blood Urea Nitrogen 11 mg/dL (9-20); Calcium 8.7 mg/dL (8.4-10.2); Carbon Dioxide 24 mmol/L (22-32); Chloride 109 mmol/L (98-107); Estimated Glomerular Filt Rate > 60.0 mL/min (>60); Glucose 85 mg/dL (80-110); HEMOLYSIS < 15 (0-50); Magnesium 1.7 mg/dL (1.6-2.3); Potassium 3.4 mmol/L (3.4-5.1); Sodium 138 mmol/L (137-145)
--- NOTE | 2019-12-06 05:36 | PC.NURSE ---
Addendum entered by Holly Stout R.N. 12/06/19 06:17: Patient with further restlessness and fidgeting. CIWA at 0610 8. 1mg IV Ativan administered. See eMar. Addendum entered by Holly Stout R.N. 12/06/19 05:44: Recent CIWA score 5, patient with tremors and disorientation to date with slight increase in activity. Patient states he feels better. No Ativan administered at this time. Original Note: caustic cresylate shift superintendent note: Patient has not required any doses of Ativan. CIWA scores around 1-2. Patient has slept a vast majority of the shift, but woke around 0400 more alert and orientated than he has been. Speech is very difficult to understand, delayed and mumbled. IV fluids continue to run, IV site changed due to expiration. Patient requiring 1 NT suctioning at start of shift, with large output of copious randall/thick secretions. Patient now better able to expectorate secretions himself. Ice chips have been attempted, patient delayed in swallowing and needing prompting to swallow. Patient remained upright at 47* for this. LINDA Landon notified of these findings, and speech therapy eval ordered. VSS stable, patient on RA sats 96%. Lungs on last assessment clear. Good UOP for shift. Patient able to express needs and concerns and is asking questions appropriately. Call light in reach, will continue to monitor.
[2019-12-06] MEDS: LORazepam 2 MG/ML INJ IV (06:14)
--- NOTE | 2019-12-06 08:37 | PM.PN.1 ---
Subjective Subjective Date Patient Seen: 12/06/19 Time Patient Seen: 08:37 Interval history: Alcohol withdrawal. Overall patient seems to be improving. His mental status has improved to some degree intermittently able to have a actual conversation as per his 's. Apparently did last evening at fair amount of agitation requiring several doses of Ativan. One overnight without Ativan and this morning had a dose about 630 or so. Seems to be less jittery. And when he is not sedated with Ativan seemingly more alert. Not require supplemental oxygen on a as needed now. Patient apparently had a bowel movement yesterday. No known seizures. Exam Vital Signs (past 8 hours): - 12/06/19 01:00 12/06/19 01:30 12/06/19 02:00 Temperature Pulse Rate 103 H 104 H 104 H Respiratory Rate 28 H 32 H 28 H Blood Pressure 122/76 134/82 128/78 Pulse Oximetry 96 97 97 12/06/19 02:30 12/06/19 03:00 12/06/19 03:30 Temperature Pulse Rate 104 H 103 H 100 H Respiratory Rate 28 H 30 H 27 H Blood Pressure 126/79 131/79 147/92 H Pulse Oximetry 97 97 98 12/06/19 04:00 12/06/19 04:30 12/06/19 05:00 Temperature 97.8 F Pulse Rate 104 H 104 H 101 H Respiratory Rate 33 H 26 H 28 H Blood Pressure 128/84 128/84 Pulse Oximetry 95 94 95 12/06/19 05:01 12/06/19 05:30 12/06/19 06:00 Temperature Pulse Rate 90 93 H Respiratory Rate 30 H 18 Blood Pressure 150/93 H 138/89 135/84 Pulse Oximetry 96 93 12/06/19 06:45 12/06/19 06:55 12/06/19 07:00 Temperature 99.2 F Pulse Rate 92 H 93 H 95 H Respiratory Rate 27 H 24 25 H Blood Pressure 154/89 H 125/80 Pulse Oximetry 95 95 12/06/19 07:55 12/06/19 08:00 Temperature 99.0 F Pulse Rate 93 H 94 H Respiratory Rate 22 25 H Blood Pressure 144/82 H Pulse Oximetry 95 95 Oxygen Delivery Method Room Air Oxygen Flow Rate 2 Narrative Exam Narrative: Patient is examined in his hospital bed and sleeping quietly in no distress. Breathing approximately 16 times a minute. That he is on room air. ENT is unremarkable. Lungs are entirely clear she still does not take a deep breath. Cardiac exam regular rhythm no murmur gallop. Abdominal exam nose tenderness. Calves are nontender apparently. Neurologic exam cranial nerves are grossly intact. Withdraws to noxious stimulation of both feet symmetrically. Babinski's is plantar Objective Labs Result Diagrams: 12/06/19 04:35 12/06/19 04:35 Labs: Laboratory Results - last 24 hr 12/06/19 12/06/19 04:35 04:35 WBC 9.5 RBC 3.86 L Hgb 13.5 Hct 39.6 L MCV 102.6 H MCH 35.0 H MCHC 34.1 RDW 13.2 Plt Count 94 L Neut % (Auto) 77.2 H Lymph % (Auto) 12.4 L [place] % (Auto) 9.6 Eos % (Auto) 0.2 L Baso % (Auto) 0.6 Neut # (Auto) 7400 H Lymph # (Auto) 1200 [place] # (Auto) 900 Eos # (Auto) 0 Baso # (Auto) 100 Sodium 138 Potassium 3.4 Chloride 109 H Carbon Dioxide 24 BUN 11 Creatinine 0.63 L Estimated GFR > 60.0 BUN/Creatinine Ratio 17.5 Glucose 85 Calcium 8.7 Magnesium 1.7 electrolytes have normalized, renal function normal, White count has normalized sputum culture pending Assessment & Plan Assessment & Plan narrative: 1. Alcohol withdrawal has symptoms have lessened. Less tremulous. No apparent hallucinations. Requiring less amount of Ativan. No apparent seizures. Will continue with CIWA protocol hopefully cutting back on the Ativan to loud mental status to improve. 2. Respiratory status stabilized presumably has some sore upper respiratory infection likely aspiration. Continue on antibiotics pending culture. 3. Cardiac status still remains a questionable with an abnormal echocardiogram will need referral to his electronic service technician upon discharge. This is discussed with his . 4. Heart rate is stabilize, blood pressure is decreased. Vital signs have improved. 5.
--- NOTE | 2019-12-06 08:41 | SLP.IPNOTE ---
ST orders received. Consulted with Nsg. Pt not appropriate for evaluation at this time. Will f/u throughout the day as able.
[2019-12-06] MEDS: ALBUTEROL/IPRATROPIUM 3 ML AMPUL INH ×2 (10:36→19:47)
--- NOTE | 2019-12-06 11:11 | P.PN_ITS ---
Subjective Subjective Date Patient Seen: 12/06/19 Time Patient Seen: 11:11 Interval history: Lyndon Antonio is a 64-year-old male who was admitted after an alcohol withdrawal seizure and has subsequently developed delirium tremens. Yesterday he did not require much ativan but overnight required increased doses. Approx 17 mg total over the past 24 hours. Overall he has shown improvement in his mental status and was alert and oriented x3 today. Speech is clearing as well. He is now off of supplemental oxygen as well. He denies any complaints of chest pain, shortness of breath. He did tell me that he felt his tongue is sore. No fever overnight, no chills, no nausea or vomiting. Exam Vital Signs (past 8 hours): - 12/06/19 03:30 12/06/19 04:00 12/06/19 04:30 Temperature Pulse Rate 100 H 104 H 104 H Respiratory Rate 27 H 33 H 26 H Blood Pressure 147/92 H 128/84 128/84 Pulse Oximetry 98 95 94 12/06/19 05:00 12/06/19 05:01 12/06/19 05:30 Temperature 97.8 F Pulse Rate 101 H 90 Respiratory Rate 28 H 30 H Blood Pressure 150/93 H 138/89 Pulse Oximetry 95 96 12/06/19 06:00 12/06/19 06:45 12/06/19 06:55 Temperature 99.2 F Pulse Rate 93 H 92 H 93 H Respiratory Rate 18 27 H 24 Blood Pressure 135/84 154/89 H Pulse Oximetry 93 95 12/06/19 07:00 12/06/19 07:55 12/06/19 08:00 Temperature 99.0 F Pulse Rate 95 H 93 H 94 H Respiratory Rate 25 H 22 25 H Blood Pressure 125/80 144/82 H Pulse Oximetry 95 95 95 12/06/19 08:50 12/06/19 09:00 12/06/19 09:55 Temperature 99.1 F 97.6 F Pulse Rate 95 H 96 H 104 H Respiratory Rate 23 23 31 H Blood Pressure 146/86 H Pulse Oximetry 95 96 92 12/06/19 10:00 12/06/19 10:01 12/06/19 10:36 Temperature Pulse Rate 104 H 104 H 100 H Respiratory Rate 29 H 34 H 21 Blood Pressure 142/85 H Pulse Oximetry 95 95 96 Oxygen Delivery Method Room Air Oxygen Flow Rate 2 Narrative Exam Narrative: GENERAL APPEARANCE: Chronically ill-appearing, mildly anxious appearing, confused SKIN: Inspection of the skin reveals no rashes, ulcerations or petechiae. HEENT: Normocephalic atraumatic, extraocular muscles are intact, oropharynx is clear and mucous membranes are moist, neck is supple without adenopathy NECK: Supple and symmetric. There was no thyroid enlargement, and no tenderness, or masses were felt. CHEST: Normal AP diameter and normal contour without any kyphoscoliosis. LUNGS: Auscultation of the lungs revealed no wheezes, rhonchi, or rales. CARDIOVASCULAR: Tachycardic but regular, no murmurs, rubs, or gallops. ABDOMEN: Soft and nontender with normal bowel sounds. There is also mild distension. MUSCULOSKELETAL: There was no tenderness or effusions noted. Muscle strength and tone were normal. EXTREMITIES: No cyanosis, clubbing or edema. NEUROLOGIC: Alert, oriented x3 today. slurring his words quite a bit but is becoming more and more intelligble. There are no focal motor deficits noted on exam. He is tremulous and has mild tongue fasciculations. Objective Labs Result Diagrams: 12/06/19 04:35 12/06/19 04:35 Labs: Laboratory Results - last 24 hr 12/06/19 12/06/19 04:35 04:35 WBC 9.5 RBC 3.86 L Hgb 13.5 Hct 39.6 L MCV 102.6 H MCH 35.0 H MCHC 34.1 RDW 13.2 Plt Count 94 L Neut % (Auto) 77.2 H Lymph % (Auto) 12.4 L [place] % (Auto) 9.6 Eos % (Auto) 0.2 L Baso % (Auto) 0.6 Neut # (Auto) 7400 H Lymph # (Auto) 1200 [place] # (Auto) 900 Eos # (Auto) 0 Baso # (Auto) 100 Sodium 138 Potassium 3.4 Chloride 109 H Carbon Dioxide 24 BUN 11 Creatinine 0.63 L Estimated GFR > 60.0 BUN/Creatinine Ratio 17.5 Glucose 85 Calcium 8.7 Magnesium 1.7 Assessment & Plan Assessment & Plan narrative: Lyndon Antonio is a 64 year old male with a past medical history of alcohol abuse and CAD who initially presented to the emergency room with a seizure secondary to alcohol withdrawal. Medicine was c onsulted for assistance with management due to severity of alcohol withdrawal and delirium tremens. 1. Alcohol withdrawal with delirium tremens and withdrawal seizure, present on admission -Initially responded well to phenobarbital but effect was very short lived, because of this ativan gtt was attempted. - was briefly on ativan gtt which increased sedation but developed Increasing secretions / cough and infusion was discontinued. Unasyn was started over concern for possible aspiration given tachypnea which could be from volume overload or aspiration. Will discontinue antibiotics as no leukocytosis and now off of oxygen. -continue ativan per [facility] protocol -continue high dose IV thiamine, some improvement in mental status. Unclear / unlikely this is due to thiamine and rather represents improvement from DTs but nonetheless will continue thiamine IV 250 mg daily x5 days or until discharge. -PT/OT and speech evaluations pending continued improvement and ability to participate in therapies. 2. CAD,chronic - continue home asa, lipitor, metoprolol once able to tolerate PO intake. Have started metoprolol 5 mg IV q6 hr and will add prn for sustained tachycardia >110. - TTE as noted below. 3. possibly acute heart failure with reduced ejection fraction, unknown chronicity - TTE noted EF to be around 30% with small cavity size. HR likely compensating for low output / increased demand at this time while in DTs, as his rate is continuing to improve. - will need to maximize medical therapy when more alert and able to tolerate oral medications. No recent TTE as outpatient. Continue IV metoprolol q6 hours. - proBNP 580 on HD#3 during episode of hypoxia, given 1 dose of lasix for increased tachypnea with improvement following. 4. Thrombocytopenia, present on admission, stable - likely secondary to EtOH abuse. Continue to follow. 5. Hyponatremia, resolved 6. Hypokalemia, improved. 7. Alcoholic hepatitis - improving LFTs since admission. 8. Acute hypoxic respiratory failure, not present on admission, resolved -likely secondary to increased sedation required for treatment of his delirium tremens. He had increased secretions which were suctioned, he was briefly given Unasyn for possible aspiration as noted above but will discontinue this today as his respiratory status is improved, he developed no leukocytosis, and chest x- ray is negative. He was also given plenty of IV fluids and given his EF of 30% he may have also had some pulmonary edema as he did improve with Lasix. Code: full, surrogate decision maker is the patient's . Hospitalist team will continue to follow this patient. Do not hesitate to contact us with additional questions.
--- NOTE | 2019-12-06 11:29 | OT.IPNOTE ---
Per nursing pt not appropriate to be seen and therefore check on pt tomorrow for Ot eval.
--- NOTE | 2019-12-06 13:26 | ST.IPCSEOM ---
Visit Care Team Role Provider Type Jesus Limon DO Other Providers Physician Specialty: Internal Medicine Address: [address] [place] [address], [address] Email: [email or web address] Reed DO Emergency Provider Physician Referring Provider Specialty: Emergency Medicine Address: [address] [place] [address], [address] Email: [email or web address] Eduar Lara MD Attending Provider Physician Primary Care Provider Specialty: Family Practice Address: [address] [place] [address], [address] Email: [email or web address] Jared Silva MD Admit Provider Physician Other Providers Specialty: Internal Medicine Address: [address] [place] [address], [address] Email: [email or web address] Current Diagnoses Unspecified convulsions (12/02/19) Past Medical History (Last Reviewed 12/03/19 @ 08:39 by Eduar Lara MD) Alcoholism (Acute Medical) CAD (coronary artery disease) (Chronic Medical) Chicken pox (Resolved Medical 1966) Heart attack (Resolved Medical 2008) 3 stents Measles (Resolved Medical ~1969) Rheumatoid arthritis (Acute Medical) Shoulder pain (Chronic Medical) Speech-Language Pathology 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 Swallow 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 Start: 12/06/19 12:35 Freq: Status: Active Protocol: Document 12/06/19 12:36 LNK (Rec: 12/06/19 13:26 LNK [email or web address]) Clinical Swallow Evaluation Session Time Visit Start Time 11:50 Visit Stop Time 12:25 Total Visit Minutes 35 Referral Reason for Referral LINDA [facility] Setting Assessment Location Acute Care Visit Type Note Type Initial evaluation Next Note Type Next Note Type Treatment Note Patient Information Identification Type Name,ID Card History Per H&P: Lyndon Antonio is a 64 -year-old male who was admitted after an alcohol withdrawal seizure and has subsequently developed delirium tremens. Yesterday he did not require much ativan but overnight required increased doses. Approx 17 mg total over the past 24 hours. Overall he has shown improvement in his mental status and was alert and oriented x3 today. Speech is clearing as well. He is now off of supplemental oxygen. Subjective Observations Pt in bed with eyes closed. Easily awakened but needed reminders to keep eyes open. Pt's , Isabell at bedside. Reported by Patient Comment Pt bit his tongue within the past 2 days. Pt c/o hurting. Abrasions observed under anterior of tongue. Pt chews very slowly. Current Diet Nothing by mouth Baseline Feeding Method Needs some assistance Objective Assessment Mental Status Responsive,Cooperative, Lethargic Oral Integrity WFL Dentition Within normal limits Lip Function Within normal limits Observation of Lips at Rest Symmetrical Tongue Function Mild impairment Tongue Retraction Reduced range of motion Tongue Lateralization Reduced range of motion Phonation Within normal limits Food and Liquid Trials Position During Assessment Slightly reclined Liquids Trialed Ice chips,Thin Solids Trialed Puree,Dysphagia Mechanical, Dysphagia Advanced Administration Type Tea spoon,Cup single sip, Controlled cup sip,Straw,Self- feeding,Needs some assistance Oral Impairment Mildly impaired Oral Phase Comments Mild oral phase dysphagie primarily due to pain from biting his tongue. The underside of the tongue tip is reddened with abrasions noted . Pt has natural teeth in good hygeine. Chews slowly, which is baseline per . Pharyngeal Impairment Within functional limits Pharyngeal Phase Comments Prompt swallow response with good hyolaryngeal elevation per palpation. Pt did not demonstrate coughing/choking/ wet voicing following PO trials . No overt s/sx aspiration noted. Clinical bedside evaluation of swallowing cannot r/o silent aspiration. Mechanical assessment (FEES, MBSS) would be necessary to r/ o silent aspiration Fatigue/Endurance Moderate fatigue Comment soft diet recommended due to lingual abrasions and pain. Pt's mentation is reported to be improving; however pt is still lethargic. As pt improves, trial texture advancement will be ongoing. Findings Swallowing Function Oral phase dysphagia Severity of Swallow Impairment Mildly impaired Contributing Factors to Swallow Reduced alertness or attention Impairment ,Reduced oral strength/ coordination/sensation Prognosis Good Impact on Safety and Functioning Risk for aspiration,Risk for inadequate nutrition/hydration Recommendations Instrumental Assessment No Swallowing Treatment Yes Frequency 1-2x/day Recommended Solids Dysphagia Advanced Recommended Liquids Thin Safety Precautions/Swallowing Upright position at least 30 Recommendations minutes after meals,Small bites and sips when eating, Slow rate; swallow between bites,Set-up assistance,Family assistance/supervision Medication Recommendations As Tolerated Discharge Recommendations Inpatient rehab facility Education Patient/Caregiver Education Described results of evaluation,Family/caregivers expressed understanding of evaluation,Family/caregivers expressed agreement with goals & treatment plans,Patient expressed understanding of safety precautions,Family/ caregivers expressed understanding of safety precautions Goals Short-term Goals Diet texture to be advanced as pt tolerance/eva improves Long-term Goals Pt will safely tolerate the least restrictive diet to meet hydration and nutritional needs without s/sx aspiration.
[2019-12-06] MEDS: NICOTINE 21 MG PATCH TOP (15:40)
--- NOTE | 2019-12-06 15:42 | PT.IIE ---
Current Diagnoses Unspecified convulsions (12/02/19) Surgical History (Last Reviewed 12/03/19 @ 08:39 by Eduar Lara MD) Anesthesia (Resolved) History of heart artery stent (Resolved 2008) Status post rotator cuff repair (Resolved) Medical History (Last Reviewed 12/03/19 @ 08:39 by Eduar Lara MD) Alcoholism (Acute) CAD (coronary artery disease) (Chronic) Chicken pox (Resolved 1966) Heart attack (Resolved 2008) Measles (Resolved ~1970) Rheumatoid arthritis (Acute) Shoulder pain (Chronic) Physical Therapy Inpatient Evaluation/Re-Eval M1 PT/OT-IP Prior Functional Status Start: 12/05/19 08:12 Freq: NEEDED Status: Active Protocol: Document 12/06/19 14:56 AW (Rec: 12/06/19 15:42 AW [email or web address]) Medical Review Prior Functional Status Medical History Reviewed Yes Communication WNL. Pt is an effective verbal communicator at baseline. Mobility and Gait Pt is typically independent without assistive device for all mobility. He had a herniated disc in early June 2019 and participated in outpatient PT but did not make much progress. He had AUBREY a few weeks ago. Since his injury in June, pt has become more sedentary. His reports he has fallen multiple times since then. She states he has occasionally used a golf club as an assistive device. Activities of Daily Living and IADL's Pt's states he has asked her to be in the house when he showers due to fear of falling. He manages dressing and toileting independently. Pt apparently drives even if he has been drinking. Social History Household Members spouse Living Arrangements House Number of Floors (Floors) One Floor Number of Stairs To Enter/Railing? Back entrance has 10 steps to the deck with narrow bilateral rails. Pt must clear uneven terrain to access the back door. Front entrance has 3 CANDIDO with wide bilateral rails + a landing + 2 shallow steps with R rail ascending. Home Environment Standard Height Toilet,Tub/ Shower Additional Social History Comment Pt lives with his , Isabell, who is currently working from home. 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 Isabell states pt's drinking has increased substantially since that time. M2 PT-IP Current Condition Start: 12/05/19 08:12 Freq: NEEDED Status: Active Protocol: Document 12/06/19 14:56 AW (Rec: 12/06/19 15:42 AW [email or web address]) Physical Therapy Current Condition Current Condition Evaluation Date 12/06/19 Treatment Diagnosis alcohol withdrawal; generalized weakness; difficulty in walking Onset Date 12/02/19 Precautions Other Precautions seizure precautions M3 PT-IP Subjective Start: 12/05/19 08:12 Freq: NEEDED Status: Active Protocol: Document 12/06/19 14:56 AW (Rec: 12/06/19 15:42 AW [email or web address]) Subjective Physical Therapy Visit Type Type Initial Evaluation Visit Start Time 14:05 Visit Stop Time 14:51 Total Visit Minutes 46 Notes SPT present throughout and provided assist with mobility. History provided by , Isabell, via phone call. Physical Therapy Visit Comments Patient Comments A small glass of water. Patient Goals Unable to assess M4 PT-IP Mobility and Gait Start: 12/05/19 08:12 Freq: NEEDED Status: Active Protocol: Document 12/06/19 14:56 AW (Rec: 12/06/19 15:42 AW [email or web address]) PT-Bed Mobility Assessment Rolling Type of Rolling Roll to Right Level of Assist Maximal Assistance,2 Person Assistance Supine to Sit Supine to Sit Total Assistance,2 Person Assistance,Head of Bed Elevated,Bedrails Sit to Supine Sit to Supine Maximum Assistance,2 Person Assistance Scooting Scooting to Edge of Bed Dependent Scooting Up and Down in Bed Dependent PT-Transfer Assessment Sit to and From Stand Sit to and from Stand Maximum Assistance,2 Person Assistance Equipment Transfer Assistive Device Gait Belt,Front Wheeled Walker Comments Mobility Comments Pt was in right sidelying with pillow behind pelvis as PT and SPT arrived. BP was 151/90 HR 95 and SpO2 97% on room air. Pt responded to verbal stimulus and sternal rub but had difficulty keeping his eyes open. PT and SPT provided max 2PA for pt to roll side to side in an attempt to increase arousal. Pt asked for a small glass of water. With HOB raised maximally, SPT offered spoonsful of water to the pt who was able to swallow without signs of aspiration. Pt required max assist to move his legs toward the right side of the bed. Using the draw sheet, PT provided total assist to turn the pt's hips toward EOB while SPT provided support from behind. In sitting, pt had a strong posterior and rightward lean which required max 2PA to maintain sitting. At EOB, pt participated in strength assessment and was able to keep his eyes open for longer periods of time. Pt sat ~5 minutes with support ranging from mod 2PA to max 2PA. Pt was unable to find midline independently but could maintain it without assist for ~5 seconds before leaning posteriorly and to the right again. Pt indicated interest in attempting to stand by placing his feet on the ground and leaning forward. With max 2PA, pt attempted to stand, clearing his hips from the bed but leaning heavily against the bed with his legs. In spite of max cues for knee and hip extension and for hand placement on the FWW, pt was unable to right himself. However, he did maintain squat position ~45 sec for two attempts. Pt then sat again with max 2PA to control descent. He was able to participate in sit to supine transfer but still required max 2PA. Pt was repositioned in right sidelying with call light within reach, SCD's on bilateral calves, pillow behind pelvis, seizure pads in place, and bed alarm armed. Gait Assessment Comments Gait Comments Pt unable at this time. Stair Climbing Assessment Comments Stair Climbing Comments Not assessed. Pt unable. PT-Balance Assessment Sitting Balance and Reactions Static Sitting Balance Ability Poor Dynamic Sitting Balance Ability Poor Standing Balance and Reactions Static Standing Balance Ability Poor Device Used FWW M5 PT-IP Objective Assessments Start: 12/05/19 08:12 Freq: NEEDED Status: Active Protocol: Document 12/06/19 14:56 AW (Rec: 12/06/19 15:42 AW [email or web address]) Orientation Orientation/Cognition Level of Alertness Lethargic Orientation Name Language Function Ability Garbled Speech Safety Awareness Decreased Safety Awareness Memory Description Short Term Impaired,Laboratory Phlebotomist Impaired Comments Pt was able to respond appropriately to yes/no questions and to follow simple commands. He was oriented to self and could state his ' s name. He asked repeatedly for a small glass of water. Gross Range of Motion Lower Extremity ROM Assessment Within Functional Limits Strength Upper Extremity Strength Assessment Bilaterally Impaired Lower Extremity Strength Assessment Bilaterally Impaired Hip 2+/5 Knee 2+/5 Ankle 3-/5 Comments Strength Comments Strength is symmetrical. Coordination Assessment Gross Coordination Gross Coordination Impaired Assessment Finger to Nose Test Activity Impossible Foot Tapping Test Activity Impossible Sensation Assessment Comments Sensation Comments Unable to assess due to pt condition Muscle Tone Muscle Tone WNL No Muscle Tone Location Bilateral Upper Extremity Manifistation of Tone Resting Tremors Comments Muscle Tone Comments Tremulous upper extremities. Other Assessments Other Other Assessments Negative clonus at bilateral ankles M6 PT-IP Treatment Start: 12/05/19 08:12 Freq: NEEDED Status: Active Protocol: Document 12/06/19 14:56 AW (Rec: 12/06/19 15:42 AW [email or web address]) Physical Therapy Treatment Education Education Provided Safety M7 PT-IP Assessment and Plan Start: 12/05/19 08:12 Freq: NEEDED Status: Active Protocol: Document 12/06/19 14:56 AW (Rec: 12/06/19 15:42 AW [email or web address]) PT Summary Assessment and Plan Potential Rehabilitation Potential Fair Status of Condition at Evaluation Unstable Summary Impairments ROM,Strength,Balance, Coordination,Sensation, Cognition,Bed Mobility, Transfers,Gait,Activity Tolerance Assessment Summary Lyndon is a 64 yo man admitted with alcohol withdrawal. He has been unable to participate in his own care since admission on 12/02/19. At baseline, pt suffers from chronic back pain and his mobility has steadily declined over the last few months which corresponds with an increase in his alcohol intake . On evaluation, pt required max to total assist with bed mobility, sitting balance, and attempts to stand at edge of bed with FWW. His alertness increased with mobility and pt was able to follow simple commands and attend to task ~1 minute at a time. Discharge recommendation will depend on progress during inpatient stay . Pt may require SNF or inpatient rehab before he is able to discharge to chemical dependency treatment facility. Goals Bed Mobility Goal Contact Guard Assistance Transfer Goal Contact Guard Assistance,Front Wheeled Walker Gait Goal Contact Guard Assistance,Front Wheel Walker Gait Distance 50 Other Goals - up/down 5 steps with unilateral rail CGA Days to Meet Goals 10 Frequency of Treatment Frequency Of Treatment Once a Day Treatment Plan Physical Therapy Treatment Plan Bed Mobility Training,Transfer Training,Gait Training, Therapeutic Exercise,Balance Retraining,Discharge Planning, Hot or Cold Pack,Neuromuscular Re-ed,Coordination Retraining ,Manual Therapy Other Recommendations and Next Treatment bed mobility, sitting balance, Focus sit to stand as able, transfers when appropriate Recommendations To Nursing Amount of Assist Needed 3 or More Person Assist Discharge Recommendations PT Discharge Recommendations SNF Rehab,Acute Rehab Transportation Needs at Discharge Wheelchair/Cabulance,Stretcher /Ambulance
[2019-12-06] MEDS: polyethylene glycoL 3350 17 GM POWD.PACK PO (18:31)
[2019-12-06] MEDS: METOPROLOL IR 50 MG TABLET PO (18:31)
[2019-12-06] MEDS: DOCUSATE 100 MG CAPSULE PO (21:16)
[2019-12-06] MEDS: ATORVASTATIN 20 MG TABLET 80 MG PO (21:16)
[2019-12-06] MEDS: SENNOSIDES 8.6 MG TABLET PO (21:16)
--- NOTE | 2019-12-06 22:09 | PC.NURSE ---
Shift Note: Pt alert and cooperative, speech is slow but deliberate, able to make needs known. C/O needing to have a BM. Placed on bedpan without result. wanted to sit on the BSC and this was attempted without success. Unable to take steps once standing so placed back in bed. CIWA =1 this shift, no ativan given. Taking soft foods and thin liquids without difficulty, able to swallow pills whole.
[2019-12-07] VITALS (29 sets, daily range): BP systolic 117–187; BP diastolic 75–98; PULSE 80–115; RESP 18–36; TEMP 36.7–36.8; O2SAT 92–99
[2019-12-07] MEDS: SODIUM CHLORIDE 0.9% 1,000 ML 100 ML IV ×3 (01:51→21:05)
[2019-12-07 04:49] LABS: Add Manual Diff / Slide Review NO; Basophils Absolute Auto 100 /uL (0-100); Eosinophils Absolute Auto 100 /uL (0-450); Eosinophils Percent Auto 0.8 % (2-4); Hematocrit 38.5 % (41-53); Hemoglobin 12.9 g/dL (13.5-17.5); Lymphocytes Absolute Auto 1300 /uL (1100-4500); Lymphocytes Percent Auto 17.4 % (25-40); Mean Corpuscular HGB Conc 33.6 % (30-36); Mean Corpuscular Hemoglobin 34.5 PG (26-34); Mean Corpuscular Volume 102.6 fL (80-100); Monocytes Absolute Auto 1100 /uL (0-900); Monocytes Percent Auto 14.4 % (3-14); Neutrophils Absolute Auto 5100 /uL (1500-7000); Neutrophils Percent Auto 66.4 % (50-75); Platelet Count 127 X10^3/uL (150-400); Red Blood Cell Count 3.75 X10^6/uL (4.5-5.9); Red Cell Distribution Width 13.1 % (11.6-14.8); White Blood Cell Count 7.7 X10^3/uL (4.5-11.0)
[2019-12-07 05:02] LABS: BUN Creatinine Ratio 17.2 (6-22); Blood Urea Nitrogen 10 mg/dL (9-20); Calcium 8.5 mg/dL (8.4-10.2); Carbon Dioxide 24 mmol/L (22-32); Chloride 108 mmol/L (98-107); Estimated Glomerular Filt Rate > 60.0 mL/min (>60); Glucose 90 mg/dL (80-110); HEMOLYSIS < 15 (0-50); Magnesium 1.6 mg/dL (1.6-2.3); Potassium 3.4 mmol/L (3.4-5.1); Sodium 136 mmol/L (137-145)
--- NOTE | 2019-12-07 06:45 | PC.NURSE ---
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 CIWA = 2, no lorazepam indicated, has pain to stiff neck, declined intervention.
--- NOTE | 2019-12-07 07:43 | P.PN_ITS ---
Subjective Subjective Date Patient Seen: 12/07/19 Interval history: Lyndon Antonio is a 64-year-old male who was admitted after an alcohol withdrawal seizure and subsequently developed delirium tremens. Medicine team was consulted for help with treatment of alcohol withdrawal with DTs and seizure. The patient has slowly improved with treatment of alcohol withdrawal with Ativan, phenobarbital, and haldol. The patient is alert oriented x3. He has no complaints other than weakness, discoordination and tremulousness. He denies hallucinations, delusions, paranoia, formication, nausea, vomiting, fever, chills, shortness of breath, chest pain, dysuria, diarrhea or constipation. His last CIWA score was 2. Recommend Librium taper which I have taken the liberty of ordering starting at 50 mg every 6 hours for 24 hours, then 50 mg twice daily x 1 day, then 25 mg twice daily x 1 day, then 25 mg daily x 1 day then stop. Continue thiamine, folic acid and multivitamin daily. Also repleted potassium and magnesium orally which his levels were low normal. Continue physical and occupational therapy evaluation and treatment. Discussed physical rehabilitation prior to inpatient alcohol treatment with the patient and spouse at bedside. Thank you for this most interesting consult. Medicine team will sign off but feel free to contact us with any further needs. Exam Vital Signs (past 8 hours): - 12/07/19 03:59 Temperature 98.3 F Pulse Rate 89 Respiratory Rate 34 H Blood Pressure 148/79 H Pulse Oximetry 93 Oxygen Delivery Method Room Air Oxygen Flow Rate 0 Objective Labs Result Diagrams: 12/07/19 04:20 12/07/19 04:20 Labs: Laboratory Results - last 24 hr 12/07/19 12/07/19 04:20 04:20 WBC 7.7 RBC 3.75 L Hgb 12.9 L Hct 38.5 L MCV 102.6 H MCH 34.5 H MCHC 33.6 RDW 13.1 Plt Count 127 L Neut % (Auto) 66.4 Lymph % (Auto) 17.4 L [place] % (Auto) 14.4 H Eos % (Auto) 0.8 L Baso % (Auto) 1.0 Neut # (Auto) 5100 Lymph # (Auto) 1300 [place] # (Auto) 1100 H Eos # (Auto) 100 Baso # (Auto) 100 Sodium 136 L Potassium 3.4 Chloride 108 H Carbon Dioxide 24 BUN 10 Creatinine 0.58 L Estimated GFR > 60.0 BUN/Creatinine Ratio 17.2 Glucose 90 Calcium 8.5 Magnesium 1.6
[2019-12-07] MEDS: ALBUTEROL/IPRATROPIUM 3 ML AMPUL INH (08:10)
[2019-12-07] MEDS: THIAMINE 250 MG in SODIUM CHLORIDE 0.9% 50 ML 210 ML IV (09:00)
[2019-12-07] MEDS: POTASSIUM CHLORIDE 20 MEQ TAB 40 MEQ PO (09:12)
[2019-12-07] MEDS: ASPIRIN EC 81 MG TABLET PO (09:13)
[2019-12-07] MEDS: MAGNESIUM CHLORIDE 64 MG TABLET PO (09:13)
[2019-12-07] MEDS: METOPROLOL IR 50 MG TABLET PO (09:15)
[2019-12-07] MEDS: FOLIC ACID 1 MG TABLET PO (09:15)
[2019-12-07] MEDS: DOCUSATE 100 MG CAPSULE PO (09:15)
[2019-12-07] MEDS: MULTIVITAMIN 1 TABLET 1 TAB PO (09:15)
--- NOTE | 2019-12-07 10:19 | ST.IPDYTX ---
Visit Care Team Role Provider Type Jesus Limon DO Other Providers Physician Specialty: Internal Medicine Address: [address] [place] [address], [address] Email: [email or web address] DO Emergency Provider Physician Referring Provider Specialty: Emergency Medicine Address: [address] [place] [address], [address] Email: [email or web address] Eduar Lara MD Attending Provider Physician Primary Care Provider Specialty: Family Practice Address: [address] [place] [address], [address] Email: [email or web address] Jared Silva MD Admit Provider Physician Other Providers Specialty: Internal Medicine Address: [address] [place] [address], [address] Email: [email or web address] INVENTORY AUDIT CLERK Dysphagia Treatment INVENTORY AUDIT CLERK Dysphagia Treatment Start: 12/06/19 12:35 Freq: Status: Active Protocol: Document 12/07/19 10:06 LAZARA (Rec: 12/07/19 10:19 LAZARA [email or web address]) Dysphagia Treatment Session Time Visit Start Time 09:40 Visit Stop Time 10:05 Total Visit Minutes 25 Setting Assessment Location Acute Care Visit Type Note Type Treatment Note Next Note Type Next Note Type Treatment Note Patient Information Identification Type Name,ID Wristband Subjective Observations Pt was sitting up in bed with at bedside assisting with breakfast meal. Pt attempting to take his medications. Depth perception is still challenging Treatment Liquids Trialed Thin Solids Trialed Dysphagia Advanced Administration Type Tea Spoon,Cup Consecutive Sips ,Straw Oral Strategies Upright at 90 degrees,Lingual Sweep,Controlled Bite/Sip Size ,Alternate Liquids/Solids Pharyngeal Strategies Sitting Upright (90 deg),Small Bites and Sips,Alternate Liquids/Solids Treatment Activities Pt was working to reach his medications on his tray. Depth perception is off still. Once retrieved, he slowly took his medications independently with thin liquids. Pt remains lethargic. Auditory processing as well as verbal responding are slow but appropriate. No overt s/sx of dysarthria or aphasia observed . Still too groggy for cognitive assessment. May be more appropriate in a day or two. Pt is safely tolerating current diet of Dysphagia Advanced with thin liquids. No upgrade in diet texture made secondary to lethargy level. Continue with thin liquids. Meds as tolerated. Assessment Patient Response to Treatment Good Rehab Potential Good Diet Recommendations Recommendations Continue Current Diet Liquids Order Thin Diet Order Dysphagia Advanced Medication Recommendations As Tolerated Additional Dietary Needs Encourage to Self-Feed Aspiration Precautions Recommended Precautions Upright at 90 Degrees, Alternate Liquids/Solids, Frequent Rest Periods,Small Bites/Sips Additional Precautions Straws OK Treatment Plan Placement Recommendation after Discharge Correction Facility Appropriate for Continued Therapy Yes: Recommend ST for swallowing at SNF Therapy Recommendations Continue therapy at SNF to advance diet and monitor for s /sx aspirations
--- NOTE | 2019-12-07 10:58 | OT.IP.EVAL ---
Current Diagnoses Unspecified convulsions (12/02/19) Past Medical History (Last Reviewed 12/03/19 @ 08:39 by Eduar Lara MD) Alcoholism (Acute) CAD (coronary artery disease) (Chronic) Chicken pox (Resolved 1966) Heart attack (Resolved 2008) Measles (Resolved ~1970) Rheumatoid arthritis (Acute) Shoulder pain (Chronic) Surgical History (Last Reviewed 12/03/19 @ 08:39 by Eduar Lara MD) Anesthesia (Resolved) History of heart artery stent (Resolved 2008) Status post rotator cuff repair (Resolved) Occupational Therapy Inpatient Evaluation/Re-Eval M1 PT/OT-IP Prior Functional Status Start: 12/07/19 12:28 Freq: NEEDED Status: Active Protocol: Document 12/07/19 09:55 [facility] (Rec: 12/07/19 12:55 [facility] [id number]) Medical Review Prior Functional Status Medical History Reviewed Yes Communication WNL. Pt is an effective verbal communicator at baseline. Mobility and Gait Pt is typically independent without assistive device for all mobility. He had a herniated disc in early June 2019 and participated in outpatient PT but did not make much progress. He had AUBREY a few weeks ago. Since his injury in June, pt has become more sedentary. His reports he has fallen multiple times since then. She states he has occasionally used a golf club as an assistive device. Activities of Daily Living and IADL's Pt's states he has asked her to be in the house when he showers due to fear of falling. He manages dressing and toileting independently. Pt apparently drives even if he has been drinking. Social History Household Members spouse Living Arrangements House Number of Floors (Floors) One Floor Number of Stairs To Enter/Railing? Back entrance has 10 steps to the deck with narrow bilateral rails. Pt must clear uneven terrain to access the back door. Front entrance has 3 CANDIDO with wide bilateral rails + a landing + 2 shallow steps with R rail ascending. Home Environment Standard Height Toilet,Tub/ Shower Additional Social History Comment Pt lives with his , Isabell, who is currently working from home. 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 Isabell states pt's drinking has increased substantially since that time. M2 OT-IP Current Condition Start: 12/07/19 12:28 Freq: Status: Active Protocol: Document 12/07/19 09:55 [facility] (Rec: 12/07/19 12:55 [facility] [id number]) Occupational Therapy Current Condition Current Condition Evaluation Date 12/07/19 Treatment Diagnosis Alcohol withdrawl with decreased mobility and self- care Diagnosis Onset Date 12/02/19 M3 OT- IP Subjective and Pain Start: 12/07/19 12:28 Freq: Status: Active Protocol: Document 12/07/19 09:55 [facility] (Rec: 12/07/19 12:55 [facility] [id number]) OT- Subjective Occupational Therapy Visit Type Type Initial Evaluation Visit Start Time 09:55 Visit Stop Time 10:58 Total Visit Minutes 63 Occupational Therapy Visit Comments Patient Comments Pt's , PT and PT student present for session. Patient/Caregiver Goals To get stronger and be able to take care of himself again. OT Pain Assessment Pain When Pain Assessed At Rest Pain Present Pain Present Denied Pain M4 OT- IP ADL's Start: 12/07/19 12:28 Freq: Status: Active Protocol: Document 12/07/19 09:55 [facility] (Rec: 12/07/19 12:55 [facility] [id number]) OT UCE-Xpaq-Fjyufup General Evaluation Self-Feeding Ability Maximum Assistance Comments OT Self-Feeding Comments Pt needing assist for set-up and at times hand over hand assist to help get water bottle to be able to drink form the straw. Pt able to orange picking supervisor large pills from the tray to get to his mouth. OT ADL-Grooming Comments OT Grooming Comments Not performed. OT ADL-Dressing General Eval Lower Body Dressing Ability Maximum Assistance,Total Assistance Comments OT Dressing Comments Total assist for socks and brief management needs. OT ADL-Toileting General Evaluation Toileting Ability Maximum Assistance,Total Assistance Areas Needing Assistance Manage Clothing,Perform Perineal Hygiene Devices Toileting Assistive Devices Commode Comments OT Toileting Comments Pt able to assist mainly just to lift up his right foot to help get into the brief, otherwise dependent for all other needs. MAX A X2 to stand and another person to assist with hygiene needs. M5 OT- IP IADL's Start: 12/07/19 12:28 Freq: Status: Active Protocol: Document 12/07/19 09:55 [facility] (Rec: 12/07/19 12:55 [facility] [id number]) OT-Instrumental Activities of Daily Living Home Safety Awareness Home Safety Comments At this time pt would be dependent for his to assist for all needs. Money Management Money Management Caregiver Provides Assistance M6 OT- IP Functional Cognition Start: 12/07/19 12:28 Freq: Status: Active Protocol: Document 12/07/19 09:55 [facility] (Rec: 12/07/19 12:55 [facility] [id number]) Cognitive Factors Limiting Selfcare Function Cognitive Ability Level of Alertness Alert Patient Orientation Name,Place Attention Span Ability Capable of Focused Attention, Capable of Sustained Attention Ability to Follow Commands Able to Follow One Step Commands Cognitive Comments Cognitive Assessment Comments Per feels not at baseline for cognition and pt is still slow to process and initiate his words at times. OT- Vision and Hearing OT- Hearing Assessment OT- Hearing Assessment WFL OT- Vision Assessment Visual Acuity Glasses For Reading M7 OT- IP Mobility and Balance Start: 12/07/19 12:28 Freq: Status: Active Protocol: Document 12/07/19 09:55 [facility] (Rec: 12/07/19 12:55 [facility] [id number]) OT- Bed Mobility Assessment Rolling Type of Rolling Roll to Right Level of Assistance Maximum Assistance,2 Person Assistance,Head of Bed Elevated Scooting Scooting to Edge of Bed Maximum Assistance,2 Person Assistance OT-Transfer Assessment Transfers Transfer Ability Maximum Assistance,2 Person Assistance Technique Transfer Destination Bed,Bedside Commode,Chair Transfer Technique Stand Step Pivot Devices Transfer Assistive Devices None,Gait Belt Comments Mobility Comments Attempted to stand with hospital bed higher and MAX AX 3 with FWW. Pt not able to stand up all the way as tends to have a flexed posture and tends to resist. Pt's states prior tends to be hunched over. Pt able to do stand/squat pivot transfer MAX AX2- assist by the hips and assist to help get upright- pt able to assist to help move his feet over. At this time recommend camilo lift for nursing transfers. OT- Gait Assessment Comments Gait Ability Comments Not at this time. OT- Balance Assessment Sitting Balance and Reactions Static Sitting Balance Ability Fair Dynamic Sitting Balance Ability Poor Standing Balance and Reactions Static Standing Balance Ability Poor Dynamic Standing Balance Ability Poor Comments Other Balance Tests/Deviations/Treatment Pt able to sit to midline with : LESLY and after stretching into anterior to midline and able to maintain on his own with close SBA. M8 OT- IP Objective Assessments Start: 12/07/19 12:28 Freq: Status: Active Protocol: Document 12/07/19 09:55 [facility] (Rec: 12/07/19 12:55 [facility] [id number]) OT Gross Range of Motion Upper Extremity Range of Motion Assessment Bilaterally Impaired ROM Impairments RUE 0-105, LUE 0-60 shoulder flexion. Pt's flexed posture also impeded his AROM for shoulder flexion. OT Strength Upper Extremity Strength Assessment Bilaterally Impaired OT- Coordination Assessment Upper Extremity Finger to Nose Test Bilateral UE Impaired OT-Muscle Tone Assessment Muscle Tone WNL Yes M9 OT- IP Assessment and Plan Start: 12/07/19 12:28 Freq: Status: Active Protocol: Document 12/07/19 09:55 [facility] (Rec: 12/07/19 12:55 [facility] [id number]) OT Summary Assessment and Plan Potential Rehabilitation Potential Good Analytic Complexity at Evaluation Moderate Summary OT Impairments Range of Motion,Strength, Balance,Coordination, Functional Cognition, Functional Mobility,Self- Feeding,Grooming,Dressing, Toileting,Bathing,Toilet Transfers,Shower Transfers, Activity Tolerance Progress Towards Goals Progressing Toward Goals,Slow Progress due to Activity Tolerance,Slow Progress due to Cognition Assessment Summary Pt mod complexity and here due to ETOH withdrawal and now needing extensive assist for all needs of ADl's and functional mobility needs. Pt is far from baseline and is motivated to get better. 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 Pt will benefit from skilled rehab prior to going home. Goals Self-Feeding Goal Independent Grooming Goal Independent Dressing Goal Independent Toileting Goal Independent Bathing Goal Independent Toilet Transfer Goal Independent Shower Transfer Goal Independent Days to Meet Goals 25 Frequency of Treatment Frequency Of Treatment Once a Day Treatment Plan OT Treatment Plan ADL Training,Functional Cognition Training,Functional Mobility,Patient/Family Education,Discharge Planning Other Treatment Recommendations and Next Pt to be able to do self Treatment Focus feeding after set-up . Discharge Recommendations OT Discharge Recommendations SNF Rehab Transportation Needs at Discharge Wheelchair/Cabulance,Stretcher /Ambulance
--- NOTE | 2019-12-07 11:55 | PT.IPTN ---
Current Diagnoses Unspecified convulsions (12/02/19) Physical Therapy Treatment Note M2 PT-IP Current Condition Start: 12/05/19 08:12 Freq: NEEDED Status: Active Protocol: Document 12/06/19 14:56 AW (Rec: 12/06/19 15:42 AW [id number]) Physical Therapy Current Condition Current Condition Evaluation Date 12/06/19 Treatment Diagnosis alcohol withdrawal; generalized weakness; difficulty in walking Onset Date 12/02/19 Precautions Other Precautions seizure precautions M3 PT-IP Subjective Start: 12/05/19 08:12 Freq: NEEDED Status: Active Protocol: Document 12/07/19 11:42 AW (Rec: 12/07/19 12:04 AW [id number]) Subjective Physical Therapy Visit Type Type Treatment Note Visit Start Time 10:00 Visit Stop Time 10:49 Total Visit Minutes 49 Notes Co-tx with OT Myrna and SPT Holger. Pt's , Isabell, present throughout. Number of DINING ROOM MANAGER Visits 0 Physical Therapy Visit Comments Patient Comments I need to use the bathroom. Therapy Pain Assessment Pain When Pain Assessed During Mobility Pain Present Pain Present Denied Pain M4 PT-IP Mobility and Gait Start: 12/05/19 08:12 Freq: NEEDED Status: Active Protocol: Document 12/07/19 11:42 AW (Rec: 12/07/19 12:04 AW [id number]) PT-Bed Mobility Assessment Supine to Sit Supine to Sit Maximum Assistance,2 Person Assistance,Head of Bed Elevated Scooting Scooting to Edge of Bed Dependent PT-Transfer Assessment Sit to and From Stand Sit to and from Stand Maximum Assistance,2 Person Assistance,Use of Upper Extremities Equipment Transfer Assistive Device Gait Belt,Front Wheeled Walker Orthotic/Prosthetic Devices or Brace: No Transfers Transfer Destination Chair,Bedside Commode Transfer Technique Squat Pivot Transfer Ability Level of Assist Maximum Assistance,2 Person Assistance Comments Mobility Comments Pt was sitting up in bed finishing up with 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 He was significantly more alert today with eyes open the entire time. Pt requested to use to the commode. Supine to sit with HOB fully upright and scooting to EOB required max A x 2 to move the legs toward right side of bed and to pull pt's hips forward using draw sheet. Pt required max assist initially for sitting balance to correct rightward and posterior lean. Pt grasped bed cane with left hand and pulled himself forward with PT in front and OT in back to correct his lean. Pt improved sitting balance after two minutes and was able to release the bed cane and support himself with both hands on the mattress with decreased PT/OT assist. In preparation for standing, PT pulled pt closer to EOB at which point pt required max assist again for sitting balance. With hands on FWW, pt was able to shift weight forward onto his feet x 3 in preparation for standing. Pt then attempted to stand with FWW, PT and OT on either side providing max assist and SPT in front to stabilize the walker. Pt required assist to extend his knees. He was unable to extend his hips in spite of max verbal and tactile cues, resulting in severely flexed posture. Pt sat EOB and repeated the standing attempt with same result. With BSC set up on pt' s left side, he completed squat pivot transfer with max A x 2. PT provided lift from front as OT assisted to move pt's hips toward commode seat. Pt sat on the BSC and had a bowel movement. EMT DRIVER arrived to assist with pericare as pt stood from the commode with max 2PA. Pt then completed squat pivot transfer to bedside chair max 2PA with PT providing lift from front and SPT guiding pelvis to chair target. Pt was observed to minimally slide his right foot to assist during this transfer. Pt was positioned on the chair in reclined position and was instructed in chair exercises. Pt was left with OT. Gait Assessment Comments Gait Comments Pt unable Stair Climbing Assessment Comments Stair Climbing Comments Unable PT-Balance Assessment Sitting Balance and Reactions Static Sitting Balance Ability Poor Dynamic Sitting Balance Ability Poor Standing Balance and Reactions Static Standing Balance Ability Poor Dynamic Standing Balance Ability Poor Device Used FWW M5 PT-IP Objective Assessments Start: 12/05/19 08:12 Freq: NEEDED Status: Active Protocol: Document 12/06/19 14:56 AW (Rec: 12/06/19 15:42 AW [id number]) Orientation Orientation/Cognition Level of Alertness Lethargic Orientation Name Language Function Ability Garbled Speech Safety Awareness Decreased Safety Awareness Memory Description Short Term Impaired,Usp Impaired Comments Pt was able to respond appropriately to yes/no questions and to follow simple commands. He was oriented to self and could state his ' s name. He asked repeatedly for a small glass of water. Gross Range of Motion Lower Extremity ROM Assessment Within Functional Limits Strength Upper Extremity Strength Assessment Bilaterally Impaired Lower Extremity Strength Assessment Bilaterally Impaired Hip 2+/5 Knee 2+/5 Ankle 3-/5 Comments Strength Comments Strength is symmetrical. Coordination Assessment Gross Coordination Gross Coordination Impaired Assessment Finger to Nose Test Activity Impossible Foot Tapping Test Activity Impossible Sensation Assessment Comments Sensation Comments Unable to assess due to pt condition Muscle Tone Muscle Tone WNL No Muscle Tone Location Bilateral Upper Extremity Manifistation of Tone Resting Tremors Comments Muscle Tone Comments Tremulous upper extremities. Other Assessments Other Other Assessments Negative clonus at bilateral ankles M6 PT-IP Treatment Start: 12/05/19 08:12 Freq: NEEDED Status: Active Protocol: Document 12/07/19 11:42 AW (Rec: 12/07/19 12:04 AW [id number]) Physical Therapy Treatment Exercises Exercises Ankle Pumps,Gluteal Sets,Quad Sets Education Education Provided Safety M7 PT-IP Assessment and Plan Start: 12/05/19 08:12 Freq: NEEDED Status: Active Protocol: Document 12/07/19 11:42 AW (Rec: 12/07/19 12:04 AW [id number]) PT Summary Assessment and Plan Potential Rehabilitation Potential Fair Status of Condition at Evaluation Evolving Summary Impairments ROM,Strength,Balance, Coordination,Sensation, Cognition,Bed Mobility, Transfers,Gait,Activity Tolerance Progress Towards Goals Slow Progress due to Medical Issues Assessment Summary Lyndon was more alert today and able to tolerate more activity. He follows 1-2 step commands and shows good effort with all activity. Pt continues to require max assist of two persons for bed mobility and transfers but is able to participate more today such as sliding his right foot during a transfer and holding himself up in unsupported sitting. Pt will require SNF rehab to improve functional mobility. Goals Bed Mobility Goal Contact Guard Assistance Transfer Goal Contact Guard Assistance,Front Wheeled Walker Gait Goal Contact Guard Assistance,Front Wheel Walker Gait Distance 50 Other Goals - up/down 5 steps with unilateral rail CGA Days to Meet Goals 10 Frequency of Treatment Frequency Of Treatment Once a Day Treatment Plan Physical Therapy Treatment Plan Bed Mobility Training,Transfer Training,Gait Training, Therapeutic Exercise,Balance Retraining,Discharge Planning, Hot or Cold Pack,Neuromuscular Re-ed,Coordination Retraining ,Manual Therapy Other Recommendations and Next Treatment bed mobility, sitting balance, Focus sit to stand as able, transfers when appropriate Recommendations To Nursing Amount of Assist Needed Mechanical Lift Discharge Recommendations PT Discharge Recommendations SNF Rehab Transportation Needs at Discharge Wheelchair/Cabulance,Stretcher /Ambulance
--- NOTE | 2019-12-07 12:22 | PT.IIE ---
Current Diagnoses Unspecified convulsions (12/02/19) Surgical History (Last Reviewed 12/03/19 @ 08:39 by Eduar Lara MD) Anesthesia (Resolved) History of heart artery stent (Resolved 2008) Status post rotator cuff repair (Resolved) Medical History (Last Reviewed 12/03/19 @ 08:39 by Eduar Lara MD) Alcoholism (Acute) CAD (coronary artery disease) (Chronic) Chicken pox (Resolved 1966) Heart attack (Resolved 2008) Measles (Resolved ~1970) Rheumatoid arthritis (Acute) Shoulder pain (Chronic) Physical Therapy Inpatient Evaluation/Re-Eval M1 PT/OT-IP Prior Functional Status Start: 12/05/19 08:12 Freq: NEEDED Status: Active Protocol: Document 12/06/19 14:56 AW (Rec: 12/06/19 15:42 AW [id number]) Medical Review Prior Functional Status Medical History Reviewed Yes Communication WNL. Pt is an effective verbal communicator at baseline. Mobility and Gait Pt is typically independent without assistive device for all mobility. He had a herniated disc in early June 2019 and participated in outpatient PT but did not make much progress. He had AUBREY a few weeks ago. Since his injury in June, pt has become more sedentary. His reports he has fallen multiple times since then. She states he has occasionally used a golf club as an assistive device. Activities of Daily Living and IADL's Pt's states he has asked her to be in the house when he showers due to fear of falling. He manages dressing and toileting independently. Pt apparently drives even if he has been drinking. Social History Household Members spouse Living Arrangements House Number of Floors (Floors) One Floor Number of Stairs To Enter/Railing? Back entrance has 10 steps to the deck with narrow bilateral rails. Pt must clear uneven terrain to access the back door. Front entrance has 3 CANDIDO with wide bilateral rails + a landing + 2 shallow steps with R rail ascending. Home Environment Standard Height Toilet,Tub/ Shower Additional Social History Comment Pt lives with his , Isabell, who is currently working from home. 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 Isabell states pt's drinking has increased substantially since that time. M2 PT-IP Current Condition Start: 12/05/19 08:12 Freq: NEEDED Status: Active Protocol: Document 12/06/19 14:56 AW (Rec: 12/06/19 15:42 AW [id number]) Physical Therapy Current Condition Current Condition Evaluation Date 12/06/19 Treatment Diagnosis alcohol withdrawal; generalized weakness; difficulty in walking Onset Date 12/02/19 Precautions Other Precautions seizure precautions M3 PT-IP Subjective Start: 12/05/19 08:12 Freq: NEEDED Status: Active Protocol: Document 12/07/19 11:42 AW (Rec: 12/07/19 12:04 AW [id number]) Subjective Physical Therapy Visit Type Type Treatment Note Visit Start Time 10:00 Visit Stop Time 10:49 Total Visit Minutes 49 Notes Co-tx with OT Myrna and SPT Holger. Pt's , Isabell, present throughout. Number of TRIPLE VALVE MECHANIC Visits 0 Physical Therapy Visit Comments Patient Comments I need to use the bathroom. Therapy Pain Assessment Pain When Pain Assessed During Mobility Pain Present Pain Present Denied Pain M4 PT-IP Mobility and Gait Start: 12/05/19 08:12 Freq: NEEDED Status: Active Protocol: Document 12/07/19 11:42 AW (Rec: 12/07/19 12:04 AW [id number]) PT-Bed Mobility Assessment Supine to Sit Supine to Sit Maximum Assistance,2 Person Assistance,Head of Bed Elevated Scooting Scooting to Edge of Bed Dependent PT-Transfer Assessment Sit to and From Stand Sit to and from Stand Maximum Assistance,2 Person Assistance,Use of Upper Extremities Equipment Transfer Assistive Device Gait Belt,Front Wheeled Walker Orthotic/Prosthetic Devices or Brace: No Transfers Transfer Destination Chair,Bedside Commode Transfer Technique Squat Pivot Transfer Ability Level of Assist Maximum Assistance,2 Person Assistance Comments Mobility Comments Pt was sitting up in bed finishing up with SETTER OFF as PT, SPT, and OT arrived. He was significantly more alert today with eyes open the entire time. Pt requested to use to the commode. Supine to sit with HOB fully upright and scooting to EOB required max A x 2 to move the legs toward right side of bed and to pull pt's hips forward using draw sheet. Pt required max assist initially for sitting balance to correct rightward and posterior lean. Pt grasped bed cane with left hand and pulled himself forward with PT in front and OT in back to correct his lean. Pt improved sitting balance after two minutes and was able to release the bed cane and support himself with both hands on the mattress with decreased PT/OT assist. In preparation for standing, PT pulled pt closer to EOB at which point pt required max assist again for sitting balance. With hands on FWW, pt was able to shift weight forward onto his feet x 3 in preparation for standing. Pt then attempted to stand with FWW, PT and OT on either side providing max assist and SPT in front to stabilize the walker. Pt required assist to extend his knees. He was unable to extend his hips in spite of max verbal and tactile cues, resulting in severely flexed posture. Pt sat EOB and repeated the standing attempt with same result. With BSC set up on pt' s left side, he completed squat pivot transfer with max A x 2. PT provided lift from front as OT assisted to move pt's hips toward commode seat. Pt sat on the BSC and had a bowel movement. RADIOCHEMICAL TECHNICIAN arrived to assist with pericare as pt stood from the commode with max 2PA. Pt then completed squat pivot transfer to bedside chair max 2PA with PT providing lift from front and SPT guiding pelvis to chair target. Pt was observed to minimally slide his right foot to assist during this transfer. Pt was positioned on the chair in reclined position and was instructed in chair exercises. Pt was left with OT. Gait Assessment Comments Gait Comments Pt unable Stair Climbing Assessment Comments Stair Climbing Comments Unable PT-Balance Assessment Sitting Balance and Reactions Static Sitting Balance Ability Poor Dynamic Sitting Balance Ability Poor Standing Balance and Reactions Static Standing Balance Ability Poor Dynamic Standing Balance Ability Poor Device Used FWW M5 PT-IP Objective Assessments Start: 12/05/19 08:12 Freq: NEEDED Status: Active Protocol: Document 12/06/19 14:56 AW (Rec: 12/06/19 15:42 AW [email or web address]) Orientation Orientation/Cognition Level of Alertness Lethargic Orientation Name Language Function Ability Garbled Speech Safety Awareness Decreased Safety Awareness Memory Description Short Term Impaired,Penitentiary Impaired Comments Pt was able to respond appropriately to yes/no questions and to follow simple commands. He was oriented to self and could state his ' s name. He asked repeatedly for a small glass of water. Gross Range of Motion Lower Extremity ROM Assessment Within Functional Limits Strength Upper Extremity Strength Assessment Bilaterally Impaired Lower Extremity Strength Assessment Bilaterally Impaired Hip 2+/5 Knee 2+/5 Ankle 3-/5 Comments Strength Comments Strength is symmetrical. Coordination Assessment Gross Coordination Gross Coordination Impaired Assessment Finger to Nose Test Activity Impossible Foot Tapping Test Activity Impossible Sensation Assessment Comments Sensation Comments Unable to assess due to pt condition Muscle Tone Muscle Tone WNL No Muscle Tone Location Bilateral Upper Extremity Manifistation of Tone Resting Tremors Comments Muscle Tone Comments Tremulous upper extremities. Other Assessments Other Other Assessments Negative clonus at bilateral ankles M6 PT-IP Treatment Start: 12/05/19 08:12 Freq: NEEDED Status: Active Protocol: Document 12/07/19 11:42 AW (Rec: 12/07/19 12:04 AW [id number]) Physical Therapy Treatment Exercises Exercises Ankle Pumps,Gluteal Sets,Quad Sets Education Education Provided Safety M7 PT-IP Assessment and Plan Start: 12/05/19 08:12 Freq: NEEDED Status: Active Protocol: Document 12/07/19 11:42 AW (Rec: 12/07/19 12:04 AW [id number]) PT Summary Assessment and Plan Potential Rehabilitation Potential Fair Status of Condition at Evaluation Evolving Summary Impairments ROM,Strength,Balance, Coordination,Sensation, Cognition,Bed Mobility, Transfers,Gait,Activity Tolerance Progress Towards Goals Slow Progress due to Medical Issues Assessment Summary Lyndon was more alert today and able to tolerate more activity. He follows 1-2 step commands and shows good effort with all activity. Pt continues to require max assist of two persons for bed mobility and transfers but is able to participate more today such as sliding his right foot during a transfer and holding himself up in unsupported sitting. Pt will require SNF rehab to improve functional mobility. Goals Bed Mobility Goal Contact Guard Assistance Transfer Goal Contact Guard Assistance,Front Wheeled Walker Gait Goal Contact Guard Assistance,Front Wheel Walker Gait Distance 50 Other Goals - up/down 5 steps with unilateral rail CGA Days to Meet Goals 10 Frequency of Treatment Frequency Of Treatment Once a Day Treatment Plan Physical Therapy Treatment Plan Bed Mobility Training,Transfer Training,Gait Training, Therapeutic Exercise,Balance Retraining,Discharge Planning, Hot or Cold Pack,Neuromuscular Re-ed,Coordination Retraining ,Manual Therapy Other Recommendations and Next Treatment bed mobility, sitting balance, Focus sit to stand as able, transfers when appropriate Recommendations To Nursing Amount of Assist Needed Mechanical Lift Discharge Recommendations PT Discharge Recommendations SNF Rehab Transportation Needs at Discharge Wheelchair/Cabulance,Stretcher /Ambulance
[2019-12-07] MEDS: chlordiazePOXIDE 25 MG CAPSULE 50 MG PO ×2 (13:11→18:40)
--- NOTE | 2019-12-07 13:22 | PM.PN.1 ---
Subjective Subjective Date Patient Seen: 12/07/19 Time Patient Seen: 08:22 Interval history: Alcohol withdrawal Patient doing much better. Apparently his last dose of Ativan yesterday morning at 6:30 a.m.. Since then he has been not be status 7 side the bed. He is eating soft foods now tolerating them well. Apparently has had a bowel movement. Richardson catheter to coming on he will be need to be more ambulatory. He denies any pain. He denies any shortness of breath. Apparently he has had conversations with his yesterday. Exam Vital Signs (past 8 hours): - 12/07/19 07:00 12/07/19 08:10 12/07/19 11:00 Temperature 98.2 F 98.3 F Pulse Rate 82 80 98 H Respiratory Rate 28 H 24 28 H Blood Pressure 187/98 H 117/75 Pulse Oximetry 97 96 97 Oxygen Delivery Method Room Air Oxygen Flow Rate 0 Narrative Exam Narrative: Patient is sitting up in his bed on room air and he appears in no respiratory distress for sure. He has very minimal jitteriness like he has had in the past. He still somewhat the slow to respond and sedated but he has a does conversant and aware of the environment where will him and he talks about things in general. No headache no chest pain no shortness of breath no abdominal pain. Neurologic exam cranial nerves 2-12 are grossly intact. And he has a negative response a Babinski Objective Labs Result Diagrams: 12/07/19 04:20 12/07/19 04:20 Labs: Laboratory Results - last 24 hr 12/07/19 12/07/19 04:20 04:20 WBC 7.7 RBC 3.75 L Hgb 12.9 L Hct 38.5 L MCV 102.6 H MCH 34.5 H MCHC 33.6 RDW 13.1 Plt Count 127 L Neut % (Auto) 66.4 Lymph % (Auto) 17.4 L Yates % (Auto) 14.4 H Eos % (Auto) 0.8 L Baso % (Auto) 1.0 Neut # (Auto) 5100 Lymph # (Auto) 1300 Yates # (Auto) 1100 H Eos # (Auto) 100 Baso # (Auto) 100 Sodium 136 L Potassium 3.4 Chloride 108 H Carbon Dioxide 24 BUN 10 Creatinine 0.58 L Estimated GFR > 60.0 BUN/Creatinine Ratio 17.2 Glucose 90 Calcium 8.5 Magnesium 1.6 labs reviewed as stated potassium is low magnesium low being replaced the as per the hospitalist. Assessment & Plan Assessment & Plan narrative: 1. Alcohol withdrawal issues have improved. Seemed like he has with his progress to the DTs. Still obviously somewhat somnolent and sedated from his experience but clearly on the road to recovery. Apparently now will be needing a Librium as per the protocol and be placed on this for next 3 days on standard taper. Discharge planning will get involved yet to be determined which could have. 2. Electrolyte imbalance being replaced. 3. Cardiac status still unsure will make a referral 1 he cell down as far as alcohol issues of done. Number for Debra to be removed.
--- NOTE | 2019-12-07 13:51 | CM.DPC ---
DCP/continued: Reviewed chart. Hospitalist signing off case. PT, OT, and ST all recommend SNF for rehabilitation prior to ETOH treatment. Met with patient and spouse they are aware and agreeable. First SNF choice is [facility]. Referral provided to Tomasa. Authorization from /[facility] will need to be obtained. Spouse reports paitent I prior to seizure and requires assistance (see therapy notes for details). P: CM team following for d/c planning. [facility] reviewing. MARI Maki
[2019-12-07] MEDS: NICOTINE 21 MG PATCH TOP (16:00)
[2019-12-07] MEDS: ENOXAPARIN 40 MG/0.4 ML SYRINGE SUBCUT (16:30)
[2019-12-07] MEDS: SENNOSIDES 8.6 MG TABLET PO (21:02)
[2019-12-07] MEDS: ATORVASTATIN 20 MG TABLET 80 MG PO (21:02)
[2019-12-07] MEDS: LORazepam 1 MG TABLET PO (21:44)
[2019-12-08 00:45] VITALS: BP 151/86; PULSE 91; RESP 27; TEMP 36.6; O2SAT 99
[2019-12-08 04:22] VITALS: BP 151/90; PULSE 87; RESP 23; TEMP 36.1; O2SAT 99
[2019-12-08] MEDS: chlordiazePOXIDE 25 MG CAPSULE 50 MG PO ×2 (05:55→20:40)
[2019-12-08 08:00] VITALS: BP 142/87; PULSE 90; RESP 18; TEMP 36.2; O2SAT 99
--- NOTE | 2019-12-08 09:09 | P.PN_ITS ---
Subjective Subjective Date Patient Seen: 12/08/19 Time Patient Seen: 09:09 Interval history: Alcohol withdrawal Continues to improve. Has been able sepsis with bed. He has a bedside commode. Verbalizing a wants to get up. He has had the seizures. Tremor is pretty well resolved he does have some with the motor skill difficulties the taking soon in feeding himself. This is not because of tremor just because of unsteadiness. Still requiring a fair amount of cyst out of bed using the Martin lift. Still producing clear mucus does not appear to be short of breath does not require supplemental oxygen. Still remains in sinus rhythm/tachycardia. Nursing staff report that the foreskin is somewhat edematous and difficult to retract Exam Vital Signs (past 8 hours): - 12/08/19 04:22 12/08/19 08:00 Temperature 97.0 F L 97.2 F L Pulse Rate 87 90 Respiratory Rate 23 18 Blood Pressure 151/90 H 142/87 H Pulse Oximetry 99 99 Oxygen Delivery Method Room Air Oxygen Flow Rate 0 Narrative Exam Narrative: Patient resting quietly sleeping initially appears in no distress O2 sats 97% on room air. Vital signs stable. Lungs are entirely clear does take a deep breath could be sleeping. Cardiac exam regular rhythm no gallop. Abdominal exam benign Penis exam he does have a foreskin but is retracted and is edematous it is if it but is easily replaced over the into the glands with some difficulty and some discomfort but it is clearly not the adhered to the gland Objective Labs Result Diagrams: 12/07/19 04:20 12/07/19 04:20 Labs: Lab studies reviewed Assessment & Plan Assessment & Plan narrative: 1. Acute alcohol withdrawal symptoms improved. No longer having seizures no longer tremulous DT part of this phenomenon seem to have improved. Not requiring any intravenous benzos. His and placed on Librium tapering dosage as per hospitalist. Today he will try to get him out of bed more get occupational therapy work with the for coordination. Discontinue intravenous. Librium management today we 50 mg twice a day tomorrow 25 mg twice a day for 1 day and then 25 mg once a day so 3 more days he will be off of his benzos in 30 Anticipate being here probably several more more days getting therapy. And then planning on transferring to a care home facility for further outpatient management and occupation therapy physical therapy. Eventually hopefully transferring him to inpatient alcohol treatment center yet to be determined
[2019-12-08] MEDS: ENOXAPARIN 40 MG/0.4 ML SYRINGE SUBCUT (09:33)
[2019-12-08] MEDS: FOLIC ACID 1 MG TABLET PO (09:33)
[2019-12-08] MEDS: MULTIVITAMIN 1 TABLET 1 TAB PO (09:33)
[2019-12-08] MEDS: ASPIRIN EC 81 MG TABLET PO (09:33)
[2019-12-08] MEDS: THIAMINE 100 MG TABLET PO (09:33)
[2019-12-08] MEDS: METOPROLOL IR 50 MG TABLET PO (09:35)
[2019-12-08 12:00] VITALS: BP 105/73; PULSE 115; RESP 23; TEMP 37; O2SAT 100
--- NOTE | 2019-12-08 13:40 | OT.IP.TRT ---
Current Diagnoses Unspecified convulsions (12/02/19) Occupational Therapy Treatment Note M2 OT-IP Current Condition Start: 12/07/19 12:28 Freq: Status: Active Protocol: Document 12/07/19 09:55 [facility] (Rec: 12/07/19 12:55 [facility] [id number]) Occupational Therapy Current Condition Current Condition Evaluation Date 12/07/19 Treatment Diagnosis Alcohol withdrawl with decreased mobility and self- care Diagnosis Onset Date 12/02/19 M3 OT- IP Subjective and Pain Start: 12/07/19 12:28 Freq: Status: Active Protocol: Document 12/08/19 17:15 [facility] (Rec: 12/08/19 17:24 [facility] [id number]) OT- Subjective Occupational Therapy Visit Type Type Treatment Note Visit Start Time 12:51 Visit Stop Time 13:40 Total Visit Minutes 49 Occupational Therapy Visit Comments Patient Comments Pt wanting to use the BSC. SALES REPRESENTATIVE PRINTING present for session due to pt needing extensive assist for mobility and Adl needs. Patient/Caregiver Goals To get stronger and be able to take care of himself again. OT Pain Assessment Pain When Pain Assessed At Rest Pain Present Pain Present Denied Pain M4 OT- IP ADL's Start: 12/07/19 12:28 Freq: Status: Active Protocol: Document 12/08/19 17:15 [facility] (Rec: 12/08/19 17:24 [facility] [id number]) OT [id number] Comments OT Self-Feeding Comments Pt's states able to do most opf his self -feeding today. OT ADL-Grooming Comments OT Grooming Comments Not performed. OT ADL-Dressing General Eval Lower Body Dressing Ability Maximum Assistance,Total Assistance Comments OT Dressing Comments Total assist for socks and brief management needs. OT ADL-Toileting General Evaluation Toileting Ability Maximum Assistance,Total Assistance Areas Needing Assistance Manage Clothing,Perform Perineal Hygiene Comments OT Toileting Comments Pt able to lift right a left foot up better today while therapist assist to get his brief up over his feet. MAX A X 2 to stand with FWW while nursing aid able to assist for brief and hygiene needs. M5 OT- IP IADL's Start: 12/07/19 12:28 Freq: Status: Active Protocol: Document 12/07/19 09:55 [facility] (Rec: 12/07/19 12:55 [facility] [id number]) OT-Instrumental Activities of Daily Living Home Safety Awareness Home Safety Comments At this time pt would be dependent for his to assist for all needs. Money Management Money Management Caregiver Provides Assistance M6 OT- IP Functional Cognition Start: 12/07/19 12:28 Freq: Status: Active Protocol: Document 12/08/19 17:15 [facility] (Rec: 12/08/19 17:24 [facility] [id number]) Cognitive Factors Limiting Selfcare Function Cognitive Ability Level of Alertness Alert Patient Orientation Name,Place Attention Span Ability Capable of Focused Attention, Capable of Sustained Attention Ability to Follow Commands Able to Follow One Step Commands Memory Description Short Term Impaired Cognitive Comments Cognitive Assessment Comments Pt's cognition appears to be clearing more to consider doing SLUMS tomorrow. M7 OT- IP Mobility and Balance Start: 12/07/19 12:28 Freq: Status: Active Protocol: Document 12/08/19 17:15 [facility] (Rec: 12/08/19 17:24 [facility] [id number]) OT-Transfer Assessment Sit to and From Stand Sit to and from Stand Maximum Assistance,2 Person Assistance Transfers Transfer Ability Maximum Assistance,2 Person Assistance Technique Transfer Destination Bed,Bedside Commode,Chair Transfer Technique Stand Step Pivot Devices Transfer Assistive Devices None,Gait Belt Comments Mobility Comments MAX A X 2 for squat pivot transfer from bed to BSC and then to the bed. Pt able to asist by moving his feet right foot more than left foot at this time. Pt still tends to lean backwards when trying to stand upright. Educated to try to lean forwards to get his weight over the front on his feet. OT- Gait Assessment Comments Gait Ability Comments Not at this time. OT- Balance Assessment Sitting Balance and Reactions Static Sitting Balance Ability Fair Dynamic Sitting Balance Ability Poor Standing Balance and Reactions Static Standing Balance Ability Poor Dynamic Standing Balance Ability Poor Comments Other Balance Tests/Deviations/Treatment Pt able to actively move his : trunk to be able to sit to midline after cues given. M8 OT- IP Objective Assessments Start: 12/07/19 12:28 Freq: Status: Active Protocol: Document 12/07/19 09:55 [facility] (Rec: 12/07/19 12:55 [facility] [id number]) OT Gross Range of Motion Upper Extremity Range of Motion Assessment Bilaterally Impaired ROM Impairments RUE 0-105, LUE 0-60 shoulder flexion. Pt's flexed posture also impeded his AROM for shoulder flexion. OT Strength Upper Extremity Strength Assessment Bilaterally Impaired OT- Coordination Assessment Upper Extremity Finger to Nose Test Bilateral UE Impaired OT-Muscle Tone Assessment Muscle Tone WNL Yes M9 OT- IP Assessment and Plan Start: 12/07/19 12:28 Freq: Status: Active Protocol: Document 12/08/19 17:15 [facility] (Rec: 12/08/19 17:24 [facility] [id number]) OT Summary Assessment and Plan Potential Rehabilitation Potential Good Analytic Complexity at Evaluation Moderate Summary OT Impairments Range of Motion,Strength, Balance,Coordination, Functional Cognition, Functional Mobility,Self- Feeding,Grooming,Dressing, Toileting,Bathing,Toilet Transfers,Shower Transfers, Activity Tolerance Progress Towards Goals Progressing Toward Goals Assessment Summary Pt able to actively participate more during sitting balance and self feeding today. Pt continues to be very motivated to get better. Pt would benefit from skilled rehab when medically stable. Goals Self-Feeding Goal Independent Grooming Goal Independent Dressing Goal Independent Toileting Goal Independent Bathing Goal Independent Toilet Transfer Goal Independent Shower Transfer Goal Independent Days to Meet Goals 24 Frequency of Treatment Frequency Of Treatment Once a Day Treatment Plan OT Treatment Plan ADL Training,Functional Cognition Training,Functional Mobility,Patient/Family Education,Discharge Planning Other Treatment Recommendations and Next Pt to be able to do self Treatment Focus feeding/grooming after set-up while seated. Discharge Recommendations OT Discharge Recommendations SNF Rehab Transportation Needs at Discharge Wheelchair/Cabulance
--- NOTE | 2019-12-08 13:40 | PT.IPTN ---
Current Diagnoses Unspecified convulsions (12/02/19) Physical Therapy Treatment Note M2 PT-IP Current Condition Start: 12/05/19 08:12 Freq: NEEDED Status: Active Protocol: Document 12/06/19 14:56 AW (Rec: 12/06/19 15:42 AW [email or web address]) Physical Therapy Current Condition Current Condition Evaluation Date 12/06/19 Treatment Diagnosis alcohol withdrawal; generalized weakness; difficulty in walking Onset Date 12/02/19 Precautions Other Precautions seizure precautions M3 PT-IP Subjective Start: 12/05/19 08:12 Freq: NEEDED Status: Active Protocol: Document 12/08/19 12:51 SP (Rec: 12/08/19 16:14 SP [id number]) Subjective Physical Therapy Visit Type Type Treatment Note Visit Start Time 12:51 Visit Stop Time 13:40 Total Visit Minutes 49 Notes Co- tx with OT Myrna, third person required during toileting. Pt's Isabell present throughout tx. Number of RESIDENTIAL CARE FACILITY MANAGER Visits 1 Physical Therapy Visit Comments Patient Comments I need to use the bathroom. Therapy Pain Assessment Pain Present Pain Present Denied Pain M4 PT-IP Mobility and Gait Start: 12/05/19 08:12 Freq: NEEDED Status: Active Protocol: Document 12/08/19 12:51 SP (Rec: 12/08/19 16:14 SP [id number]) PT-Bed Mobility Assessment Rolling Type of Rolling Roll to Left Level of Assist Moderate Assistance,2 Person Assistance Sit to Supine Sit to Supine Maximum Assistance,2 Person Assistance Scooting Scooting to Edge of Bed Maximum Assistance PT-Transfer Assessment Sit to and From Stand Sit to and from Stand Maximum Assistance,2 Person Assistance,Use of Upper Extremities Equipment Transfer Assistive Device Gait Belt,Front Wheeled Walker Orthotic/Prosthetic Devices or Brace: No Transfers Transfer Destination Bed,Bedside Commode Transfer Technique Squat Pivot Transfer Ability Level of Assist Maximum Assistance,2 Person Assistance Comments Mobility Comments Pt was upright sitting in chair in room when arrived. CoTx with OT. Scoot to EO chair Max A of 2 person with max cuing and assist for trunk wt shift and LE advancement usign transfer pad. Sit<>stand Max A of 2 persons with cuing for forward trunk wt shift due to heavy retro lean and to R. S[place]O required as needed with Max cuing for proper hand placement transition pushing off chair arm with RUE and LLE on FWW. Stood approx 45- 60 sec with max cuing for COG over OTONIEL before required to sit back in chair. Sitting balance in chair forward/back/ side wt shift to improve trunk lean to midline to assist with transfers, CG- Min A with max cuing and target to move to. 2nd attempt sit<> stand Max A of 2 persons approx 20 sec, decreased activity tolerance. Squat pivot transfer to R chair > BSC Max x2 persons. SBA while sitting on commode for safety. Sit to stand Max A of 2 persons using FWW and 3rd person to assist with pericare and hygiene needs, seated rest then squat transfer BSC to EOB. Pt used gait belt on therapist waist for LUE self support and RUE to assist self mobilize pushing from commode arms and reaching for bed, improvement in forward and lateral wt shift during last squat pivot transfer. sit> supine Max A of 2 persons for trunk and LE support. Pt able to modified bridge using bent knees CGA and lateral scoot pelvis with Mod- Max A to center himself in bed. Max A of 1 to log roll and 2nd to place pillows posteriorly support in R sidelying to unweight backside for pressure relief for improvement in skin integrity. Pt had call light and all needs in reach and inroom when left. Gait Assessment Comments Gait Comments Pt unable Stair Climbing Assessment Comments Stair Climbing Comments Unable PT-Balance Assessment Sitting Balance and Reactions Static Sitting Balance Ability Fair Dynamic Sitting Balance Ability Poor Standing Balance and Reactions Static Standing Balance Ability Poor Dynamic Standing Balance Ability Poor Device Used FWW M5 PT-IP Objective Assessments Start: 12/05/19 08:12 Freq: NEEDED Status: Active Protocol: Document 12/06/19 14:56 AW (Rec: 12/06/19 15:42 AW [id number]) Orientation Orientation/Cognition Level of Alertness Lethargic Orientation Name Language Function Ability Garbled Speech Safety Awareness Decreased Safety Awareness Memory Description Short Term Impaired,Senior Living Impaired Comments Pt was able to respond appropriately to yes/no questions and to follow simple commands. He was oriented to self and could state his ' s name. He asked repeatedly for a small glass of water. Gross Range of Motion Lower Extremity ROM Assessment Within Functional Limits Strength Upper Extremity Strength Assessment Bilaterally Impaired Lower Extremity Strength Assessment Bilaterally Impaired Hip 2+/5 Knee 2+/5 Ankle 3-/5 Comments Strength Comments Strength is symmetrical. Coordination Assessment Gross Coordination Gross Coordination Impaired Assessment Finger to Nose Test Activity Impossible Foot Tapping Test Activity Impossible Sensation Assessment Comments Sensation Comments Unable to assess due to pt condition Muscle Tone Muscle Tone WNL No Muscle Tone Location Bilateral Upper Extremity Manifistation of Tone Resting Tremors Comments Muscle Tone Comments Tremulous upper extremities. Other Assessments Other Other Assessments Negative clonus at bilateral ankles M6 PT-IP Treatment Start: 12/05/19 08:12 Freq: NEEDED Status: Active Protocol: Document 12/08/19 12:51 SP (Rec: 12/08/19 16:14 SP [id number]) Physical Therapy Treatment Exercises Exercises Ankle Pumps Education Education Provided Safety Other Treatments Other Treatment Performed Seated ex: DF toe raises, LAQ, marching, trunk forward/ backward/ lateral trunk leaning, trunk rotation x5 each. M7 PT-IP Assessment and Plan Start: 12/05/19 08:12 Freq: NEEDED Status: Active Protocol: Document 12/08/19 12:51 SP (Rec: 12/08/19 16:14 SP [id number]) PT Summary Assessment and Plan Potential Rehabilitation Potential Fair Status of Condition at Evaluation Evolving Summary Impairments ROM,Strength,Balance, Coordination,Sensation, Cognition,Bed Mobility, Transfers,Gait,Activity Tolerance Progress Towards Goals Slow Progress due to Medical Issues Assessment Summary Lyndon was more alert today and able to tolerate more activity. He follows 1-2 step commands and shows good effort with all activity. Pt continues to require max assist of two persons for bed mobility and transfers but is able to continue to participate more today by sliding his right foot during a transfer and holding himself up in unsupported in sitting. Pt will require SNF rehab to improve functional mobility. Goals Bed Mobility Goal Contact Guard Assistance Transfer Goal Contact Guard Assistance,Front Wheeled Walker Gait Goal Contact Guard Assistance,Front Wheel Walker Gait Distance 50 Other Goals - up/down 5 steps with unilateral rail CGA Days to Meet Goals 10 Frequency of Treatment Frequency Of Treatment Once a Day Treatment Plan Physical Therapy Treatment Plan Bed Mobility Training,Transfer Training,Gait Training, Therapeutic Exercise,Balance Retraining,Discharge Planning, Hot or Cold Pack,Neuromuscular Re-ed,Coordination Retraining ,Manual Therapy Other Recommendations and Next Treatment bed mobility, sitting balance, Focus sit to stand as able, transfers when appropriate Recommendations To Nursing Amount of Assist Needed Mechanical Lift Discharge Recommendations PT Discharge Recommendations SNF Rehab Transportation Needs at Discharge Wheelchair/Cabulance,Stretcher /Ambulance
[2019-12-08] MEDS: NICOTINE 21 MG PATCH TOP (17:01)
[2019-12-08 17:20] VITALS: BP 140/82; PULSE 93; RESP 17; TEMP 37; O2SAT 97
--- NOTE | 2019-12-08 17:41 | ST.IPDYTX ---
Addendum entered and electronically signed by Kahlil Bynum 12/08/19 17:54: Treatment time: 11:35 - 11:55 Original Note: Visit Care Team Role Provider Type Jesus Limon DO Other Providers Physician Specialty: Internal Medicine Address: [address] [place] [address] Email: [email or web address] Ramez Reed DO Emergency Provider Physician Referring Provider Specialty: Emergency Medicine Address: [address] [place] [address] Email: [email or web address] Eduar Lara MD Attending Provider Physician Primary Care Provider Specialty: Family Practice Address: [address] [place] [address] Email: [email or web address] Jared Silva MD Admit Provider Physician Other Providers Specialty: Internal Medicine Address: [address] [place] [address] Email: [email or web address] CHIEF MEDICAL TECHNOLOGIST Dysphagia Treatment CHIEF MEDICAL TECHNOLOGIST Dysphagia Treatment Start: 12/06/19 12:35 Freq: Status: Active Protocol: Document 12/08/19 17:28 JENNY (Rec: 12/08/19 17:41 JENNY [email or web address]) Dysphagia Treatment Session Time Visit Start Time 10:35 Visit Stop Time 10:55 Total Visit Minutes 20 Setting Assessment Location Acute Care Visit Type Note Type Discharge Summary Patient Information Identification Type Name,ID Card Subjective Observations The pt was sitting up in chair eating lunch assisted by his who was holding a mirror in front of the pt to help him guide his hand to mouth while eating. The couple reported the pt was tolerating oral intake well. The pt was agreeable to trials of regular texture to assess for potential advancement of diet. Treatment Liquids Trialed Thin Solids Trialed Dysphagia Advanced,Regular Administration Type Straw,Self-Feeding Oral Strategies Upright at 90 degrees Pharyngeal Strategies Sitting Upright (90 deg),Small Bites and Sips Treatment Activities The pt tolerated soft sandwich , turkey sandwich and dry jay cracker with thin liquids without overt s/sx of aspiration. Occasional cough throughout the treatment session was noted but did not appear related to swallow. The pt independently fed and was very slow in movements, including biting into solids and masticating, but exhibited good oral containment and clearance and had no complaints of swallow difficulty. He was occasionally conversant with slow but appropriate speech and good humor. Assessment Patient Response to Treatment Good Rehab Potential Good Assessment of Improvement The pt demonstrated swallow safety sufficient for upgrade to regular texture. The pt and his were educated on general aspiration risks/ precautions including s/sx of dysphagia and verbalized understanding and agreement with recommendations. Discussed pt's cognitive status with Nsg and OT. Appears to be improving slowly . OT to monitor and administrate SLUMS when appropriate. The pt will be discharged from services at this time. Diet Recommendations Recommendations Upgrade Liquid Order Liquids Order Thin Diet Order Regular Medication Recommendations As Tolerated Comments Set-up and feeding assistance as needed Additional Dietary Needs 1:1 Assistance Aspiration Precautions Recommended Precautions Upright at 90 Degrees,Small Bites/Sips Treatment Plan Placement Recommendation after Discharge Longterm Facility Appropriate for Continued Therapy No Therapy Recommendations Continue therapy at SNF to advance diet and monitor for s /sx aspirations
[2019-12-08] MEDS: DOCUSATE 100 MG CAPSULE PO (20:40)
[2019-12-08] MEDS: ATORVASTATIN 20 MG TABLET 80 MG PO (20:40)
[2019-12-08] MEDS: SENNOSIDES 8.6 MG TABLET PO (20:40)
[2019-12-08] MEDS: SODIUM CHLORIDE 0.9% FLUSH 10 ML IV (20:40)
[2019-12-08 21:00] VITALS: BP 146/86; PULSE 97; RESP 21; TEMP 37; O2SAT 97
[2019-12-09 00:33] VITALS: BP 124/78; PULSE 100; RESP 26; TEMP 36; O2SAT 96
[2019-12-09 04:13] VITALS: BP 122/79; PULSE 96; RESP 17; TEMP 36.3; O2SAT 97
--- NOTE | 2019-12-09 06:30 | PC.NURSE ---
maintenance mechanic 2nd shift note: Patient slept majority of the shift, has remained AOx3. CIWA score 0 upon initial assessment. No complaints throughout shift. Patient has been turned and repositioned every 2 hours due to skin breakdown on coccyx. Patient voiding with incontinent episodes in brief. Patient resting in bed, no distress noted. Will continue to monitor.
[2019-12-09 08:00] VITALS: BP 106/70; PULSE 119; RESP 27; TEMP 36.1; O2SAT 95
--- NOTE | 2019-12-09 08:35 | PT.IPTN ---
Current Diagnoses Unspecified convulsions (12/02/19) Physical Therapy Treatment Note M2 PT-IP Current Condition Start: 12/05/19 08:12 Freq: NEEDED Status: Active Protocol: Document 12/06/19 14:56 AW (Rec: 12/06/19 15:42 AW [email or web address]) Physical Therapy Current Condition Current Condition Evaluation Date 12/06/19 Treatment Diagnosis alcohol withdrawal; generalized weakness; difficulty in walking Onset Date 12/02/19 Precautions Other Precautions seizure precautions M3 PT-IP Subjective Start: 12/05/19 08:12 Freq: NEEDED Status: Active Protocol: Document 12/09/19 08:18 [facility] (Rec: 12/09/19 08:35 [facility] [id number]) Subjective Physical Therapy Visit Type Type Treatment Note Visit Start Time 07:39 Visit Stop Time 08:10 Total Visit Minutes 31 Number of ELEVATOR SERVICEMAN Visits 0 Physical Therapy Visit Comments Patient Comments Pt reprots he needs to urinate M4 PT-IP Mobility and Gait Start: 12/05/19 08:12 Freq: NEEDED Status: Active Protocol: Document 12/09/19 08:18 [facility] (Rec: 12/09/19 08:35 [facility] [id number]) PT-Bed Mobility Assessment Supine to Sit Supine to Sit Moderate Assistance,Head of Bed Elevated Scooting Scooting to Edge of Bed Contact Guard Assistance PT-Transfer Assessment Sit to and From Stand Sit to and from Stand Moderate Assistance,Maximum Assistance,Use of Upper Extremities Equipment Transfer Assistive Device Gait Belt,Front Wheeled Walker Orthotic/Prosthetic Devices or Brace: No Transfers Transfer Destination Bed,Bedside Commode Transfer Ability Level of Assist Maximum Assistance,1 Person Assistance,Use of Upper Extremities Comments Mobility Comments Pt was mostly R s/L in bed in bed today and was able to sequence his legs out of the bed and required mod A w/ HOB elevated 16 deg to go from s/l to seated. PT able to sit CGA and scoot fwd CGA to then stand with max A and reach to commode to do squat pivot transfer with max A x1. NEWSPAPER ILLUSTRATOR doffed brief for him while PT helped pt cont to stand with max A. He required max A to stand from commode and max A x1 to remain standing while NEWSPAPER ILLUSTRATOR wiped and pulled up brief. Pt then amb with max A x1 of PT and occasional further assist of NEWSPAPER ILLUSTRATOR about 3 ft with FWW to chair. Pt took a rest then did 5x sit to stand to FWW working on standign about 10-20 sec each time working to find his balance. He required mod A for each sit to stand and required min to mod A for balacne in standing. Pt left in chair with RN after exercises. Gait Assessment Gait Gait Assistance Required: Total Assistance,2 Person Assist Distance (Feet) 3 Assistive Devices Assistive Device Gait Belt,Front Wheeled Walker M5 PT-IP Objective Assessments Start: 12/05/19 08:12 Freq: NEEDED Status: Active Protocol: Document 12/06/19 14:56 AW (Rec: 12/06/19 15:42 AW [email or web address]) Orientation Orientation/Cognition Level of Alertness Lethargic Orientation Name Language Function Ability Garbled Speech Safety Awareness Decreased Safety Awareness Memory Description Short Term Impaired,Batter Out Impaired Comments Pt was able to respond appropriately to yes/no questions and to follow simple commands. He was oriented to self and could state his ' s name. He asked repeatedly for a small glass of water. Gross Range of Motion Lower Extremity ROM Assessment Within Functional Limits Strength Upper Extremity Strength Assessment Bilaterally Impaired Lower Extremity Strength Assessment Bilaterally Impaired Hip 2+/5 Knee 2+/5 Ankle 3-/5 Comments Strength Comments Strength is symmetrical. Coordination Assessment Gross Coordination Gross Coordination Impaired Assessment Finger to Nose Test Activity Impossible Foot Tapping Test Activity Impossible Sensation Assessment Comments Sensation Comments Unable to assess due to pt condition Muscle Tone Muscle Tone WNL No Muscle Tone Location Bilateral Upper Extremity Manifistation of Tone Resting Tremors Comments Muscle Tone Comments Tremulous upper extremities. Other Assessments Other Other Assessments Negative clonus at bilateral ankles M6 PT-IP Treatment Start: 12/05/19 08:12 Freq: NEEDED Status: Active Protocol: Document 12/09/19 08:18 [facility] (Rec: 12/09/19 08:35 [facility] [email or web address]) Physical Therapy Treatment Other Treatments Other Treatment Performed seated ex: marching, LAQ x10 B M7 PT-IP Assessment and Plan Start: 12/05/19 08:12 Freq: NEEDED Status: Active Protocol: Document 12/09/19 08:18 [facility] (Rec: 12/09/19 08:35 [facility] [id number]) PT Summary Assessment and Plan Summary Impairments ROM,Strength,Balance, Coordination,Sensation, Cognition,Bed Mobility, Transfers,Gait,Activity Tolerance Progress Towards Goals Progressing Toward Goals Assessment Summary Lyndon cont to improve his alertness and was able to follow more complex commands and put in very good effort with his treatment today. He was fatigued after. He was able to transfer with a lot less assistance today and was able to do reps of sit to stands. He sitll leans posteriorly in standing and requiers max cueing for his posture. Pt would benefit from being changed to twice a day for treatmetn in order to improve his mobility as he is wesley to participate more at this time. Goals Bed Mobility Goal Contact Guard Assistance Transfer Goal Contact Guard Assistance,Front Wheeled Walker Gait Goal Contact Guard Assistance,Front Wheel Walker Gait Distance 50 Other Goals - up/down 5 steps with unilateral rail CGA Days to Meet Goals 10 Frequency of Treatment Frequency Of Treatment Twice a Day Treatment Plan Physical Therapy Treatment Plan Bed Mobility Training,Transfer Training,Gait Training, Therapeutic Exercise,Balance Retraining,Discharge Planning, Hot or Cold Pack,Neuromuscular Re-ed,Coordination Retraining ,Manual Therapy Other Recommendations and Next Treatment bed mobility, sitting balance, Focus sit to stands with work on standing w/o post lean & small distance gait with chair follow Recommendations To Nursing Amount of Assist Needed 2 Person Assist Discharge Recommendations PT Discharge Recommendations SNF Rehab Transportation Needs at Discharge Wheelchair/Cabulance
--- NOTE | 2019-12-09 09:05 | P.PN_ITS ---
Subjective Subjective Date Patient Seen: 12/09/19 Time Patient Seen: 09:05 Interval history: Alcohol withdrawal Patient continues to improve. Sitting up. Able to feed himself still some difficulty getting food into his mouth but able to do so. Requiring less ass istance does not require the or lift. Still requires 2 people assist still somewhat unsteady on see no more jittering no seizures. Denies any respiratory problems. Oxygen was but normal. Cough is decreasing difficulty. is concerned about ongoing management as appropriately so. Anticipate patient going to custodial facility tomorrow for a physical therapy occupational therapy and visiting going to inpatient alcohol treatment program this yet to be determined by the social service. Exam Vital Signs (past 8 hours): - 12/09/19 04:13 Temperature 97.3 F L Pulse Rate 96 H Respiratory Rate 17 Blood Pressure 122/79 Pulse Oximetry 97 Oxygen Delivery Method Room Air Oxygen Flow Rate 0 Narrative Exam Narrative: Patient is sitting up in his bedside chair eating breakfast. Able to take a fork and hit a banana and put in his mouth needed. Having some difficulty he drinking fluids straw however. Lungs are entirely clear. Cardiac exam regular rhythm no murmur gallop shows tachycardia. Carotids 1+ no bruits. Abdominal exam is benign. Calves are nontender. He has no edema. O2 sats 95% on room air Objective Labs Result Diagrams: 12/07/19 04:20 12/07/19 04:20 Labs: No recent lab will order lab today. Assessment & Plan Assessment & Plan narrative: 1. Patient has refer resolved and improved significantly his alcohol withdrawal problems manifested by jitteriness and seizures. CTs have resolved. He still has fair amount of go as far as a rehabilitation physically balance is bad strength is back coordination bad but these have improved significantly every day. Anticipate significant improvement as outpatient rehab for these issues. 2. His pulmonary status is resolved no longer on antibiotics. 3. Tachycardia persist. 4. He will need to have a cardiology evaluation once the above issues addressed due to his abnormal echocardiogram some of this may be due to alcohol are alcohol related withdrawal which case baby moved point but this will be done as an outpatient at a later date 5. Vital signs [facility] nursing facility for ongoing physical therapy and occupational therapy otherwise are stable. 6. Anticipate being discharged tomorrow to
[2019-12-09] MEDS: ASPIRIN EC 81 MG TABLET PO (09:34)
[2019-12-09] MEDS: FOLIC ACID 1 MG TABLET PO (09:35)
[2019-12-09] MEDS: METOPROLOL IR 50 MG TABLET PO (09:35)
[2019-12-09] MEDS: ENOXAPARIN 40 MG/0.4 ML SYRINGE SUBCUT (09:35)
[2019-12-09] MEDS: chlordiazePOXIDE 25 MG CAPSULE PO ×2 (09:35→21:43)
[2019-12-09] MEDS: SODIUM CHLORIDE 0.9% FLUSH 10 ML IV ×2 (09:35→21:44)
[2019-12-09] MEDS: MULTIVITAMIN 1 TABLET 1 TAB PO (09:35)
[2019-12-09] MEDS: THIAMINE 100 MG TABLET PO (09:35)
[2019-12-09 11:31] LABS: Add Manual Diff / Slide Review NO; Basophils Absolute Auto 100 /uL (0-100); Basophils Percent Auto 1.1 % (0-2); Eosinophils Absolute Auto 0 /uL (0-450); Eosinophils Percent Auto 0.6 % (2-4); Hematocrit 40.3 % (41-53); Hemoglobin 13.9 g/dL (13.5-17.5); Lymphocytes Absolute Auto 800 /uL (1100-4500); Mean Corpuscular HGB Conc 34.4 % (30-36); Mean Corpuscular Hemoglobin 34.8 PG (26-34); Mean Corpuscular Volume 101.3 fL (80-100); Monocytes Absolute Auto 1100 /uL (0-900); Monocytes Percent Auto 19.4 % (3-14); Neutrophils Absolute Auto 3700 /uL (1500-7000); Neutrophils Percent Auto 64.9 % (50-75); Platelet Count 212 X10^3/uL (150-400); Red Blood Cell Count 3.98 X10^6/uL (4.5-5.9); Red Cell Distribution Width 12.9 % (11.6-14.8); White Blood Cell Count 5.6 X10^3/uL (4.5-11.0)
[2019-12-09 11:43] LABS: Alanine Aminotransferase 51 IU/L (<50); Albumin 3.6 g/dL (3.5-5.0); Albumin Globulin Ratio 1.2 (1.0-2.8); Alkaline Phosphatase 101 U/L (38-126); Aspartate Aminotransferase 66 IU/L (17-59); Bilirubin Total 0.7 mg/dL (0.2-1.3); Blood Urea Nitrogen 13 mg/dL (9-20); Calcium 9.2 mg/dL (8.4-10.2); Carbon Dioxide 25 mmol/L (22-32); Chloride 105 mmol/L (98-107); Estimated Glomerular Filt Rate > 60.0 mL/min (>60); Globulin 2.9 g/dL (1.7-4.1); Glucose 134 mg/dL (80-110); HEMOLYSIS < 15 (0-50); Potassium 3.1 mmol/L (3.4-5.1); Sodium 137 mmol/L (137-145); Total Protein 6.5 g/dL (6.3-8.2)
[2019-12-09 12:00] VITALS: BP 113/76; RESP 18; TEMP 36.8; O2SAT 94
--- NOTE | 2019-12-09 12:19 | OT.IP.TRT ---
Current Diagnoses Unspecified convulsions (12/02/19) Occupational Therapy Treatment Note M2 OT-IP Current Condition Start: 12/07/19 12:28 Freq: Status: Active Protocol: Document 12/07/19 09:55 [facility] (Rec: 12/07/19 12:55 [facility] [id number]) Occupational Therapy Current Condition Current Condition Evaluation Date 12/07/19 Treatment Diagnosis Alcohol withdrawl with decreased mobility and self- care Diagnosis Onset Date 12/02/19 M3 OT- IP Subjective and Pain Start: 12/07/19 12:28 Freq: Status: Active Protocol: Document 12/09/19 13:35 [facility] (Rec: 12/09/19 13:50 [facility] [id number]) OT- Subjective Occupational Therapy Visit Type Type Treatment Note Visit Start Time 12:19 Visit Stop Time 12:51 Total Visit Minutes 32 Occupational Therapy Visit Comments Patient Comments Pt just getting his lunch tray . Nursing aid assist to help scoot pt up in the bed for better eating positioning needs. Patient/Caregiver Goals To get stronger and be able to take care of himself again. OT Pain Assessment Pain When Pain Assessed At Rest Pain Present Pain Present Denied Pain M4 OT- IP ADL's Start: 12/07/19 12:28 Freq: Status: Active Protocol: Document 12/09/19 13:35 [facility] (Rec: 12/09/19 13:50 [facility] [id number]) OT [id number] General Evaluation Self-Feeding Ability Standby Assistance Comments OT Self-Feeding Comments Pt needing increased time and elbow propped up to better be able to get his hand to mouth with the utensils. Pt states able to use the regular utensils better than the foam handled utensils. Pt still having to use bothe hand to bring up the cup to his mouth. OT ADL-Grooming Comments OT Grooming Comments Not performed. M5 OT- IP IADL's Start: 12/07/19 12:28 Freq: Status: Active Protocol: Document 12/07/19 09:55 [facility] (Rec: 12/07/19 12:55 [facility] [id number]) OT-Instrumental Activities of Daily Living Home Safety Awareness Home Safety Comments At this time pt would be dependent for his to assist for all needs. Money Management Money Management Caregiver Provides Assistance M6 OT- IP Functional Cognition Start: 12/07/19 12:28 Freq: Status: Active Protocol: Document 12/09/19 13:35 [facility] (Rec: 12/09/19 13:50 [facility] [id number]) Cognitive Factors Limiting Selfcare Function Cognitive Ability Level of Alertness Alert Patient Orientation Name,Place Attention Span Ability Capable of Focused Attention, Capable of Sustained Attention Ability to Follow Commands Able to Follow One Step Commands Cognitive Comments Cognitive Assessment Comments Pt states would rather do the SLUMS tomorrow. Pt does have insight to his deficits and aware that he would like to work on his strength, balance, and coordination while in rehab. M7 OT- IP Mobility and Balance Start: 12/07/19 12:28 Freq: Status: Active Protocol: Document 12/08/19 17:15 [facility] (Rec: 12/08/19 17:24 [facility] [id number]) OT-Transfer Assessment Sit to and From Stand Sit to and from Stand Maximum Assistance,2 Person Assistance Transfers Transfer Ability Maximum Assistance,2 Person Assistance Technique Transfer Destination Bed,Bedside Commode,Chair Transfer Technique Stand Step Pivot Devices Transfer Assistive Devices None,Gait Belt Comments Mobility Comments MAX A X 2 for squat pivot transfer from bed to C and then to the bed. Pt able to asist by moving his feet right foot more than left foot at this time. Pt still tends to lean backwards when trying to stand upright. Educated to try to lean forwrads to get his weight over the front on his feet. OT- Gait Assessment Comments Gait Ability Comments Not at this time. OT- Balance Assessment Sitting Balance and Reactions Static Sitting Balance Ability Fair Dynamic Sitting Balance Ability Poor Standing Balance and Reactions Static Standing Balance Ability Poor Dynamic Standing Balance Ability Poor Comments Other Balance Tests/Deviations/Treatment Pt able to actively move his : trunk to be able to sit to midline after cues given. M8 OT- IP Objective Assessments Start: 12/07/19 12:28 Freq: Status: Active Protocol: Document 12/09/19 13:35 [facility] (Rec: 12/09/19 13:50 [facility] [id number]) OT- Coordination Assessment Comments Coordination Comments Pt able to open the salt packet today. M9 OT- IP Assessment and Plan Start: 12/07/19 12:28 Freq: Status: Active Protocol: Document 12/09/19 13:35 [facility] (Rec: 12/09/19 13:50 [facility] [id number]) OT Summary Assessment and Plan Potential Rehabilitation Potential Good Analytic Complexity at Evaluation Moderate Summary OT Impairments Range of Motion,Strength, Balance,Coordination, Functional Cognition, Functional Mobility,Self- Feeding,Grooming,Dressing, Toileting,Bathing,Toilet Transfers,Shower Transfers, Activity Tolerance Progress Towards Goals Progressing Toward Goals Assessment Summary Pt now mostly independent for eating needs at this time and able to self feed himself after placing pillows under his elbow to help increase ease to eat. Pt also noted increased insight to his needs and able to states specific goals to work on in rehab. Pt looking to go to skilled rehab when medically stable. Goals Self-Feeding Goal Independent Grooming Goal Independent Dressing Goal Independent Toileting Goal Independent Bathing Goal Independent Toilet Transfer Goal Independent Shower Transfer Goal Independent Days to Meet Goals 20 Frequency of Treatment Frequency Of Treatment Once a Day Treatment Plan OT Treatment Plan ADL Training,Functional Cognition Training,Functional Mobility,Patient/Family Education,Discharge Planning Other Treatment Recommendations and Next Grooming while seated/SLUMS Treatment Focus Discharge Recommendations OT Discharge Recommendations SNF Rehab Transportation Needs at Discharge Wheelchair/Cabulance
[2019-12-09 13:07] LABS: Magnesium 1.6 mg/dL (1.6-2.3)
--- NOTE | 2019-12-09 13:36 | PT.IPTN ---
Current Diagnoses Unspecified convulsions (12/02/19) Physical Therapy Treatment Note M2 PT-IP Current Condition Start: 12/05/19 08:12 Freq: NEEDED Status: Active Protocol: Document 12/06/19 14:56 [facility] (Rec: 12/06/19 15:42 [facility] [id number]) Physical Therapy Current Condition Current Condition Evaluation Date 12/06/19 Treatment Diagnosis alcohol withdrawal; generalized weakness; difficulty in walking Onset Date 12/02/19 Precautions Other Precautions seizure precautions M3 PT-IP Subjective Start: 12/05/19 08:12 Freq: NEEDED Status: Active Protocol: Document 12/09/19 13:20 [facility] (Rec: 12/09/19 14:32 [facility] [id number]) Subjective Physical Therapy Visit Type Type Treatment Note Visit Start Time 13:20 Visit Stop Time 13:36 Total Visit Minutes 16 Notes DIRECTOR OF PULMONARY UNIT present to assist when needed. Number of ADVERTISING OPERATIONS COORDINATOR Visits 1 Physical Therapy Visit Comments Patient Comments Pt agreeable to work w/ therapy and in room. M4 PT-IP Mobility and Gait Start: 12/05/19 08:12 Freq: NEEDED Status: Active Protocol: Document 12/09/19 13:20 [facility] (Rec: 12/09/19 14:32 [facility] [id number]) PT-Bed Mobility Assessment Sit to Supine Sit to Supine Minimal Assistance,1 Person Assistance,Head of Bed Elevated PT-Transfer Assessment Sit to and From Stand Sit to and from Stand Moderate Assistance,Maximum Assistance,1 Person Assistance ,Use of Upper Extremities Equipment Transfer Assistive Device Gait Belt,Front Wheeled Walker Orthotic/Prosthetic Devices or Brace: No Transfers Transfer Destination Bed Transfer Ability Level of Assist Maximum Assistance,1 Person Assistance,Use of Upper Extremities Comments Mobility Comments Pt on BSC upon arrival from therapy. Mod to MAx A and cues for hand placement and sequencing for sit<>Stand from BSC. Upon standing, DIRECTOR OF PULMONARY UNIT assisted w/ pericare. Pt then ambulated ~3 ft towards bed w/ Max A for FWW management and balance. Pt needed verbal and tactile cues for hand placement and FWW use when turning. Pt stated he was too tired to complete exercises in sitting, but agreed to exercises in supine. Min A for sit<>sup. Max A x2 for scooting up in bed. Pt then completed 1x5 bilateral ankle pumps, quad sets, and heel slides. Pt left in bed w/ all needs in reach. Gait Assessment Gait Gait Assistance Required: Maximum Assistance,1 Person Assist Distance (Feet) 3 Able to Maintain Weight Bearing Status Yes During Gait Assistive Devices Assistive Device Gait Belt,Front Wheeled Walker Orthotic/Prosthetic Devices or Brace: No Gait Deviations General Gait Pattern Antalgic,Decreased Stride Length,Decreased Feet Clearance,Flexed Trunk,Wide Based Gait Factors Limiting Gait Function Factors Limiting Gait Function Decreased Activity Tolerance, Decreased Strength,Difficulty Following Directions, Incoordination,Limited Range of Motion,Pain,Poor Balance, Poor Safety Awareness Comments Gait Comments Please refer to mobility section for details. Pt only able to tolerate 3 ft w/ FWW Max A and max cues. Stair Climbing Assessment Comments Stair Climbing Comments Unable PT-Balance Assessment Sitting Balance and Reactions Static Sitting Balance Ability Fair Dynamic Sitting Balance Ability Poor Standing Balance and Reactions Static Standing Balance Ability Poor Dynamic Standing Balance Ability Poor Device Used FWW M5 PT-IP Objective Assessments Start: 12/05/19 08:12 Freq: NEEDED Status: Active Protocol: Document 12/06/19 14:56 [facility] (Rec: 12/06/19 15:42 [facility] [id number]) Orientation Orientation/Cognition Level of Alertness Lethargic Orientation Name Language Function Ability Garbled Speech Safety Awareness Decreased Safety Awareness Memory Description Short Term Impaired,Nursing Home Impaired Comments Pt was able to respond appropriately to yes/no questions and to follow simple commands. He was oriented to self and could state his ' s name. He asked repeatedly for a small glass of water. Gross Range of Motion Lower Extremity ROM Assessment Within Functional Limits Strength Upper Extremity Strength Assessment Bilaterally Impaired Lower Extremity Strength Assessment Bilaterally Impaired Hip 2+/5 Knee 2+/5 Ankle 3-/5 Comments Strength Comments Strength is symmetrical. Coordination Assessment Gross Coordination Gross Coordination Impaired Assessment Finger to Nose Test Activity Impossible Foot Tapping Test Activity Impossible Sensation Assessment Comments Sensation Comments Unable to assess due to pt condition Muscle Tone Muscle Tone WNL No Muscle Tone Location Bilateral Upper Extremity Manifistation of Tone Resting Tremors Comments Muscle Tone Comments Tremulous upper extremities. Other Assessments Other Other Assessments Negative clonus at bilateral ankles M6 PT-IP Treatment Start: 12/05/19 08:12 Freq: NEEDED Status: Active Protocol: Document 12/09/19 13:20 [facility] (Rec: 12/09/19 14:32 [facility] [id number]) Physical Therapy Treatment Exercises Exercises Ankle Pumps,Quad Sets,Heel Slides Education Education Provided Safety M7 PT-IP Assessment and Plan Start: 12/05/19 08:12 Freq: NEEDED Status: Active Protocol: Document 12/09/19 13:20 [facility] (Rec: 12/09/19 14:32 [facility] [id number]) PT Summary Assessment and Plan Potential Rehabilitation Potential Fair Status of Condition at Evaluation Evolving Summary Impairments ROM,Strength,Balance, Coordination,Sensation, Cognition,Bed Mobility, Transfers,Gait,Activity Tolerance Progress Towards Goals Progressing Toward Goals Assessment Summary Pt continues to require Max A and max cues for ambulation. Mod to Max for sit<>stand, Min A for sit<>sup. Pt able to respond and follow commands, but became drowsy during LE strengthening exercises and needed clues to keep eyes open . Pt has low tolerance for activity and will benefit from SNF to improve strength and mobility. Goals Bed Mobility Goal Contact Guard Assistance Transfer Goal Contact Guard Assistance,Front Wheeled Walker Gait Goal Contact Guard Assistance,Front Wheel Walker Gait Distance 50 Other Goals - up/down 5 steps with unilateral rail CGA Days to Meet Goals 10 Frequency of Treatment Frequency Of Treatment Twice a Day Treatment Plan Physical Therapy Treatment Plan Bed Mobility Training,Transfer Training,Gait Training, Therapeutic Exercise,Balance Retraining,Discharge Planning, Hot or Cold Pack,Neuromuscular Re-ed,Coordination Retraining ,Manual Therapy Other Recommendations and Next Treatment bed mobility, sitting balance, Focus sit to stands with work on standing w/o post lean & small distance gait with chair follow Recommendations To Nursing Amount of Assist Needed 2 Person Assist Discharge Recommendations PT Discharge Recommendations SNF Rehab Transportation Needs at Discharge Wheelchair/Cabulance
[2019-12-09] MEDS: POTASSIUM CHLORIDE 20 MEQ TAB PO ×2 (13:46→21:44)
--- NOTE | 2019-12-09 14:55 | PC.NURSE ---
Day Shift Note CIWA 0 this shift. Oriented x3. Slow processing/slow speech at times but able to make needs known. Continues on librium taper. 2 person MAX assist to transfer. Up in chair for meals this shift. Denies pain. Isabell () at bedside. Bed alarm on. Call light within reach.
[2019-12-09 17:00] VITALS: BP 98/73; PULSE 98; RESP 19; TEMP 36.7
[2019-12-09] MEDS: NICOTINE 21 MG PATCH TOP (17:00)
[2019-12-09 20:34] VITALS: BP 129/78; PULSE 92; RESP 18; TEMP 36.6
[2019-12-09] MEDS: SENNOSIDES 8.6 MG TABLET PO (21:43)
[2019-12-09] MEDS: ATORVASTATIN 20 MG TABLET 80 MG PO (21:43)
[2019-12-09] MEDS: DOCUSATE 100 MG CAPSULE PO (21:43)
[2019-12-10 00:15] VITALS: BP 120/76; PULSE 94; RESP 18; TEMP 36.1; O2SAT 95
[2019-12-10 04:00] VITALS: BP 114/68; PULSE 99; RESP 16; TEMP 35.9; O2SAT 96
--- NOTE | 2019-12-10 06:22 | PC.NURSE ---
public relations officer note: Patient has remained AOx3 throughout shift, no medications needed for CIWA. Patient on RA, VSS. Patient able to assist in turning and repositioning in bed. Up to BSC x1 for large, loose BM and void. Patient able to make his concerns and needs known. Call light in reach. Patient anticipating discharge today.
[2019-12-10 08:07] VITALS: BP 106/74; RESP 16; TEMP 36.2; O2SAT 97
--- NOTE | 2019-12-10 08:19 | PM.DS.1 ---
History of Present Illness History of Present Illness Date Patient Seen: 12/10/19 Time Patient Seen: 08:20 Chief complaint: Stop ETOH 2 days ago Narrative: Patient admitted last night through the emergency room to ICU for alcohol withdrawal. Presented to the ER week complaining o weakness unsteadiness and age since of feeling nauseated and just generally feeling poorly. thinks that perhaps he may have had a seizure on the deck she not see observe but noticed that he had this tongue. Presumably when he was in the emergency room he apparently had a seizure resolve without loss of conscious but tomas of extremities. This was treated with phenobarb and resolved at med is been resolved ever since. Impression at that time by the emergency room staff was it was due to alcohol withdrawal. Patient has been drinking at least a pt of vodka a daily for perhaps 20 years. However this past 6 months due to several things that happened in his life he is up the dose to approximately a qt of vodka a day period and this is been going on for several months. He is have been discussing it discontinuing the alcohol but apparently he decided to stop it altogether 2 days ago. He apparently stopped it approximately 4 days about as 10 years ago when he had heart surgery. He did not have withdrawals at that time. is unaware of him having any withdrawal symptoms in the past but is it out primarily arm pressure was because he has a quit drinking. No history of head trauma. Presumably takes his metoprolol for his cardiac status. Has history of coronary artery disease 2009 underwent stent placement he had a non ST elevated myocardial infarction. Sees bowling ball assembler in [place] has seen recently. Additionally has several months later apparently had 2 more stents placed because of narrowing of the blood vessels obviously. He presumably has been on Pradaxa intermittently since then this was stopped recently because he had an epidural steroid. His other problem is his back pain he has chronic back pain she has had physical therapy. Sees orthopedics for same had epidural steroid placed the 10 days or so ago. {from Dr. Lara's H&P 12/03/19} Discharge Providers Provider Date of admission: 12/02/19 20:44 Discharge Date: 12/10/19 Primary care physician: Eduar Lara MD Consults: 12/02/19 21:35 Consult to Discharge Planning Routine Comment: Needs Alcohol treatment plan 12/04/19 08:33 Consult to Occupational Therapy Evaluate & Treat Comment: Physician Instructions: Evaluate and treat Consult to Physical Therapy Evaluate & Treat Comment: Physician Instructions: Evaluate and Treat 12/04/19 09:51 Consult to Hospitalist Service Routine Comment: Consulting Provider: Jesus Limon Reason for consultation: Alcohol withdrawal Has provider been notified: Yes 12/05/19 04:43 Consult to Respiratory Therapy Evaluate & Treat Comment: ETOH W/D, CHF, congestion Physician Instructions: Evaluate and treat 12/06/19 05:28 Consult to Speech Therapy Evaluate & Treat Comment: swallow evaluation, ETOH W/D, AMS, aspiration risk Physician Instructions: Evaluate and treat Discharge provider: Jared Silva MD Summary Hospital Course Discharge Diagnosis: 1. Alcohol abuse 2. Alcohol withdrawal seizure 3. Delirium tremens, resolved 4. Rheumatoid arthritis 5. Peripheral vascular disease 6. Coronary artery disease 7. GERD 8. Lumbar disc disease with chronic back pain Hospital Course: Patient presented to [facility] Emergency Department as above with symptoms of alcohol withdrawal. Had a seizure. Was admitted to the ICU with careful monitoring and usual protocols for management of alcohol withdrawal. Patient fortunately had more severe symptoms required quite high doses of multiple medications to control his DTs and alcohol withdrawal symptoms. Did not have another seizure however. Over time and with support and medications as of of patient's symptoms slowly subsided. At time of discharge he had been off any benzodiazepines for greater than 24 hours. Patient was still incredibly weak unable even to feed himself regularly. Unable to get up out of bed. Was unable to return home and will need to go to [facility] for continued physical rehabilitation Once patient's physical status is much improved it was strongly recommended he undergo inpatient treatment for his alcoholism as well. Patient's other medical problems were stable during this hospitalization Status at Discharge Cognitive/behavioral status at discharge: at baseline, oriented Functional status at discharge: bed bound Overall status at discharge: patient is progressing back to baseline Time Spent with Patient Time spent: Greater than 30 minutes Time spent discussing smoking cessation with patient: 3 to 10 minutes Exam Vital Signs (past 8 hours): - 12/10/19 04:00 Temperature 96.6 F L Pulse Rate 99 H Respiratory Rate 16 Blood Pressure 114/68 Pulse Oximetry 96 Oxygen Delivery Method Room Air Oxygen Flow Rate 0 Narrative Exam Narrative: Much older than stated age appearing male in no obvious distress lying nearly immobile in bed HEENT-unremarkable Neck-no lymphadenopathy no bruits Lungs-good breath sounds Heart-regular rate and rhythm no murmur Abdomen-benign Extremities-mild redness left heel along the calcaneal tip with significant discomfort to palpation, right foot and heel normal Objective Labs Result Diagrams: 12/09/19 11:20 12/09/19 11:20 Labs: Laboratory Results - last 24 hr 12/09/19 12/09/19 12/09/19 11:20 11:20 11:20 WBC 5.6 RBC 3.98 L Hgb 13.9 Hct 40.3 L MCV 101.3 H MCH 34.8 H MCHC 34.4 RDW 12.9 Plt Count 212 Neut % (Auto) 64.9 Lymph % (Auto) 14.0 L Dickey % (Auto) 19.4 H Eos % (Auto) 0.6 L Baso % (Auto) 1.1 Neut # (Auto) 3700 Lymph # (Auto) 800 L Dickey # (Auto) 1100 H Eos # (Auto) 0 Baso # (Auto) 100 Sodium 137 Potassium 3.1 L Chloride 105 Carbon Dioxide 25 BUN 13 Creatinine 0.59 L Estimated GFR > 60.0 BUN/Creatinine Ratio 22.0 Glucose 134 H Calcium 9.2 Magnesium 1.6 Total Bilirubin 0.7 AST 66 H ALT 51 H Alkaline Phosphatase 101 Total Protein 6.5 Albumin 3.6 Globulin 2.9 Albumin/Globulin Ratio 1.2 Discharge Assessment & Plan Assessment and Plan Plan of Treatment: Discharge to [facility] for continued physical rehab with skilled therapies. Once appropriate suggest strongly patient be discharged to inpatient rehab for alcoholism treatment Discharge Plan Discharge Plan Patient Disposition: SNF Transfer to: [facility] Under care of provider: staff Consult as needed: Dental, Hearing, Mental health, Podiatry and Vision Provider Discharge Comment: Patient to require occupational therapy and physical therapy Arrangements to be made for eventual transfer to inpatient alcohol treatment program Discharge orders & Medications Prescriptions: Continued aspirin [Adult Low Dose Aspirin] 81 mg tablet,delayed release (DR/EC) 81 mg PO DAILY RF: 0 atorvastatin [Lipitor] 80 mg tablet 80 mg PO DAILY Qty: 90 RF: 3 metoprolol tartrate 25 mg tablet 50 mg PO DAILY Qty: 180 RF: 3 Follow up/Referrals: Eduar Lara MD [Primary Care Provider] - Discharge Health Status Multidrug resistant organism: No MDRO Precautions: [place] Diet/Activity/Treatments Diet: Diet as Tolerated Liquid consistency: Normal/Thin Food texture: Regular Skin/Wound/Dressing Care Skin care: Left Heel early pressure changes Special Rehabilitation Services Reason for rehabilitation: Recovery r/t decondition Rehab type: Physical therapy, Occupational therapy and Speech therapy Discharge Data Primary Care Provider: Eduar Lara
[2019-12-10] MEDS: POTASSIUM CHLORIDE 20 MEQ TAB PO (08:32)
[2019-12-10] MEDS: THIAMINE 100 MG TABLET PO (08:32)
[2019-12-10] MEDS: chlordiazePOXIDE 25 MG CAPSULE PO (08:32)
[2019-12-10] MEDS: SODIUM CHLORIDE 0.9% FLUSH 10 ML IV (08:32)
[2019-12-10] MEDS: MULTIVITAMIN 1 TABLET 1 TAB PO (08:32)
[2019-12-10] MEDS: ASPIRIN EC 81 MG TABLET PO (08:32)
[2019-12-10] MEDS: METOPROLOL IR 50 MG TABLET PO (08:32)
[2019-12-10] MEDS: FOLIC ACID 1 MG TABLET PO (08:32)
[2019-12-10] MEDS: ACETAMINOPHEN 325 MG TABLET 650 MG PO (08:50)
[2019-12-10 09:28] LABS: COVID19 -Nasal RAPID Negative (Negative)
--- NOTE | 2019-12-10 09:47 | PT.IPTN ---
Current Diagnoses Unspecified convulsions (12/02/19) Physical Therapy Treatment Note M2 PT-IP Current Condition Start: 12/05/19 08:12 Freq: NEEDED Status: Active Protocol: Document 12/06/19 14:56 AW (Rec: 12/06/19 15:42 AW [email or web address]) Physical Therapy Current Condition Current Condition Evaluation Date 12/06/19 Treatment Diagnosis alcohol withdrawal; generalized weakness; difficulty in walking Onset Date 12/02/19 Precautions Other Precautions seizure precautions M3 PT-IP Subjective Start: 12/05/19 08:12 Freq: NEEDED Status: Active Protocol: Document 12/10/19 09:21 KS (Rec: 12/10/19 10:59 KS [id number]) Subjective Physical Therapy Visit Type Type Treatment Note Visit Start Time 09:21 Visit Stop Time 09:47 Total Visit Minutes 26 Notes Co-treat w/ OT 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 M4 PT-IP Mobility and Gait Start: 12/05/19 08:12 Freq: NEEDED Status: Active Protocol: Document 12/10/19 09:21 KS (Rec: 12/10/19 10:59 KS [id number]) PT-Bed Mobility Assessment Supine to Sit Supine to Sit Moderate Assistance,1 Person Assistance Scooting Scooting to Edge of Bed Moderate Assistance PT-Transfer Assessment Sit to and From Stand Sit to and from Stand Moderate Assistance,1 Person Assistance,Use of Upper Extremities Equipment Transfer Assistive Device Gait Belt,Front Wheeled Walker Orthotic/Prosthetic Devices or Brace: No Transfers Transfer Destination Chair,Bedside Commode Transfer Technique pt ambulated w/ FWW Transfer Ability Level of Assist Maximum Assistance,1 Person Assistance,Use of Upper Extremities Comments Mobility Comments Pt in bed upon arrival from therapy . Mod A w/ HOB flat for sup<>sit and scooting EOB. Pt Mod A and cues for sit<> stand w/ FWW. Pt then performed stand step pivot to BSC, Max A for balance and FWW management. Mod A for stand<> sit on BSC. Pt then ambulated Max A from BSC to sink ~10 ft. Pt then stand<>sit in chair w / Mod A in preparation for hygiene w/ OT. Pt left in chair w/ OT in room. Gait Assessment Gait Gait Assistance Required: Maximum Assistance,1 Person Assist Distance (Feet) 10 Able to Maintain Weight Bearing Status Yes During Gait Assistive Devices Assistive Device Gait Belt,Front Wheeled Walker Orthotic/Prosthetic Devices or Brace: No Gait Deviations General Gait Pattern Antalgic,Decreased Stride Length,Decreased Feet Clearance,Flexed Trunk,Wide Based Gait Factors Limiting Gait Function Factors Limiting Gait Function Decreased Activity Tolerance, Decreased Strength,Difficulty Following Directions, Incoordination,Limited Range of Motion,Pain,Poor Balance, Poor Safety Awareness Comments Gait Comments Pt ambulated ~10 ft to sink w/ FWW and Max A. Pt demonstrated better use of FWW and ability to lift and advance BLE. Stair Climbing Assessment Comments Stair Climbing Comments Unable PT-Balance Assessment Sitting Balance and Reactions Static Sitting Balance Ability Fair Dynamic Sitting Balance Ability Fair Standing Balance and Reactions Static Standing Balance Ability Poor Dynamic Standing Balance Ability Poor Device Used FWW M5 PT-IP Objective Assessments Start: 12/05/19 08:12 Freq: NEEDED Status: Active Protocol: Document 12/06/19 14:56 AW (Rec: 12/06/19 15:42 AW [id number]) Orientation Orientation/Cognition Level of Alertness Lethargic Orientation Name Language Function Ability Garbled Speech Safety Awareness Decreased Safety Awareness Memory Description Short Term Impaired,Intermediate Impaired Comments Pt was able to respond appropriately to yes/no questions and to follow simple commands. He was oriented to self and could state his ' s name. He asked repeatedly for a small glass of water. Gross Range of Motion Lower Extremity ROM Assessment Within Functional Limits Strength Upper Extremity Strength Assessment Bilaterally Impaired Lower Extremity Strength Assessment Bilaterally Impaired Hip 2+/5 Knee 2+/5 Ankle 3-/5 Comments Strength Comments Strength is symmetrical. Coordination Assessment Gross Coordination Gross Coordination Impaired Assessment Finger to Nose Test Activity Impossible Foot Tapping Test Activity Impossible Sensation Assessment Comments Sensation Comments Unable to assess due to pt condition Muscle Tone Muscle Tone WNL No Muscle Tone Location Bilateral Upper Extremity Manifistation of Tone Resting Tremors Comments Muscle Tone Comments Tremulous upper extremities. Other Assessments Other Other Assessments Negative clonus at bilateral ankles M6 PT-IP Treatment Start: 12/05/19 08:12 Freq: NEEDED Status: Active Protocol: Document 12/10/19 11:00 KS (Rec: 12/10/19 11:00 KS [id number]) Physical Therapy Treatment Other Treatments Other Treatment Performed Reviewed exs, pt and pts confirm pt has been completing LE strengthening in bed. M7 PT-IP Assessment and Plan Start: 12/05/19 08:12 Freq: NEEDED Status: Active Protocol: Document 12/10/19 09:21 KS (Rec: 12/10/19 10:59 KS [id number]) PT Summary Assessment and Plan Potential Rehabilitation Potential Fair Status of Condition at Evaluation Evolving Summary Impairments ROM,Strength,Balance, Coordination,Sensation, Cognition,Bed Mobility, Transfers,Gait,Activity Tolerance Progress Towards Goals Progressing Toward Goals Assessment Summary Pt showed some improvements w/ bed mobility, Mod A and sit<> Stand Mod A. Max A and cues for transfers and ambulation. Pt tolerated 10ft ambulation w / FWW and Max A w/ improved FWW use, but still requiring verbal and tactile cues. Pt remains limited in mobility ans tolerace fro activity and will benefit from SNF to improve strength and functional independence. Goals Bed Mobility Goal Contact Guard Assistance Transfer Goal Contact Guard Assistance,Front Wheeled Walker Gait Goal Contact Guard Assistance,Front Wheel Walker Gait Distance 50 Other Goals - up/down 5 steps with unilateral rail CGA Days to Meet Goals 10 Frequency of Treatment Frequency Of Treatment Twice a Day Treatment Plan Physical Therapy Treatment Plan Bed Mobility Training,Transfer Training,Gait Training, Therapeutic Exercise,Balance Retraining,Discharge Planning, Hot or Cold Pack,Neuromuscular Re-ed,Coordination Retraining ,Manual Therapy Other Recommendations and Next Treatment bed mobility, sitting balance, Focus sit to stands with work on standing w/o post lean & small distance gait with chair follow Recommendations To Nursing Amount of Assist Needed 2 Person Assist Discharge Recommendations PT Discharge Recommendations SNF Rehab Transportation Needs at Discharge Wheelchair/Cabulance
--- NOTE | 2019-12-10 10:32 | OT.IP.TRT ---
Current Diagnoses Unspecified convulsions (12/02/19) Occupational Therapy Treatment Note M2 OT-IP Current Condition Start: 12/07/19 12:28 Freq: Status: Active Protocol: Document 12/07/19 09:55 [facility] (Rec: 12/07/19 12:55 [facility] [id number]) Occupational Therapy Current Condition Current Condition Evaluation Date 12/07/19 Treatment Diagnosis Alcohol withdrawl with decreased mobility and self- care Diagnosis Onset Date 12/02/19 M3 OT- IP Subjective and Pain Start: 12/07/19 12:28 Freq: Status: Active Protocol: Document 12/10/19 10:34 CGR (Rec: 12/10/19 11:10 CGR [email or web address]) OT- Subjective Occupational Therapy Visit Type Type Progress Note Visit Start Time 09:23 Visit Stop Time 10:32 Total Visit Minutes 69 Notes Partial co-treat with P.T. Occupational Therapy Visit Comments Patient Comments I would like to shave OT Pain Assessment Pain When Pain Assessed At Rest Pain Present Pain Present Denied Pain M4 OT- IP ADL's Start: 12/07/19 12:28 Freq: Status: Active Protocol: Document 12/10/19 10:34 CGR (Rec: 12/10/19 11:10 CGR [email or web address]) OT [id number] Comments OT Self-Feeding Comments not meal time OT ADL-Grooming General Evaluation Grooming Ability Standby Assistance,Moderate Assistance Areas Needing Assistance Combing/Brushing Hair,Shaving Comments OT Grooming Comments Pt was able to wash face with SBA, brush hair with SBA and needed mod a for shaving. Pt was sitting in the chair at the sink for activities. OT ADL-Oral Care Comments Oral Care Comments not performed OT ADL-Dressing General Eval Lower Body Dressing Ability Total Assistance Areas Needing Assistance Underpants/Brief,Socks Comments OT Dressing Comments socks in bed, pt given time to attempt but was unable to perform. Brief donned seated on BSC. OT ADL-Toileting General Evaluation Toileting Ability Total Assistance Areas Needing Assistance Manage Clothing,Perform Perineal Hygiene Comments OT Toileting Comments Pt transfered to BSC and had loose stool. OT ADL-Bathing Comments OT Bathing Comments not performed M5 OT- IP IADL's Start: 12/07/19 12:28 Freq: Status: Active Protocol: Document 12/07/19 09:55 [facility] (Rec: 12/07/19 12:55 [facility] [id number]) OT-Instrumental Activities of Daily Living Home Safety Awareness Home Safety Comments At this time pt would be dependent for his to assist for all needs. Money Management Money Management Caregiver Provides Assistance M6 OT- IP Functional Cognition Start: 12/07/19 12:28 Freq: Status: Active Protocol: Document 12/09/19 13:35 [facility] (Rec: 12/09/19 13:50 [facility] [id number]) Cognitive Factors Limiting Selfcare Function Cognitive Ability Level of Alertness Alert Patient Orientation Name,Place Attention Span Ability Capable of Focused Attention, Capable of Sustained Attention Ability to Follow Commands Able to Follow One Step Commands Cognitive Comments Cognitive Assessment Comments Pt states would rather do the SLUMS tomorrow. Pt does have insight to his deficits and aware that he woudl like to work on his strength, balance, and coordination while in rehab. M7 OT- IP Mobility and Balance Start: 12/07/19 12:28 Freq: Status: Active Protocol: Document 12/10/19 10:34 CGR (Rec: 12/10/19 11:10 CGR [email or web address]) OT- Bed Mobility Assessment Rolling Type of Rolling Roll to Right Level of Assistance Moderate Assistance Supine to Sit Supine to Sit Assist Moderate Assistance Scooting Scooting to Edge of Bed Standby Assistance,Contact Guard Assistance OT-Transfer Assessment Sit to and From Stand Sit to and from Stand Moderate Assistance Transfers Transfer Ability Moderate Assistance Technique Transfer Destination Bed,Bedside Commode,Car Transfer Technique Stand Step Pivot Devices Transfer Assistive Devices Gait Belt,Front Wheeled Walker Comments Mobility Comments Pt mobilized from bed to BSC for BM and then to chair at sink for ADLs. OT- Gait Assessment Gait Gait Assistance Required: Maximum Assistance,1 Person Assist,2 Person Assist Assistive Devices Assistive Device Gait Belt,Front Wheeled Walker Comments Gait Ability Comments mobility aroudn the room. Second person assist for safety. Pt showed improvement with mobility today. OT- Balance Assessment Sitting Balance and Reactions Static Sitting Balance Ability Good Dynamic Sitting Balance Ability Fair M8 OT- IP Objective Assessments Start: 12/07/19 12:28 Freq: Status: Active Protocol: Document 12/10/19 10:34 CGR (Rec: 12/10/19 11:10 CGR [email or web address]) OT Gross Range of Motion Upper Extremity Range of Motion Assessment Bilaterally Impaired ROM Impairments RUE 0-105, LUE 0-60 shoulder flexion. Pt's flexed posture also impeded his AROM for shoulder flexion. OT Strength Upper Extremity Strength Assessment Bilaterally Impaired OT- Coordination Assessment Upper Extremity Finger to Nose Test Bilateral UE Impaired Comments Coordination Comments Pt with shakey and uncoordinated movments but was able to save with extra time. OT-Muscle Tone Assessment Muscle Tone WNL Yes Muscle Tone Location Bilateral Upper Extremity Manifestation of Tone Resting Tremors Comments Muscle Tone Comments Tremulous upper extremities. M9 OT- IP Assessment and Plan Start: 12/07/19 12:28 Freq: Status: Active Protocol: Document 12/10/19 10:34 CGR (Rec: 12/10/19 11:10 CGR [email or web address]) OT Summary Assessment and Plan Potential Rehabilitation Potential Good Analytic Complexity at Evaluation Moderate Summary OT Impairments Range of Motion,Strength, Balance,Coordination, Functional Cognition, Functional Mobility,Self- Feeding,Grooming,Dressing, Toileting,Bathing,Toilet Transfers,Shower Transfers, Activity Tolerance Progress Towards Goals Progressing Toward Goals Assessment Summary Pt is progressing with therapy now with a 1 person max a for mobility with the walker and mod a for sit to stand. Pt will dep for toileting and dressing. Pt demonstrated fair endurance with a long session for shaving but is fatigued at end of session. Call button within reach and all needs at time met. Goals Self-Feeding Goal Independent Grooming Goal Independent Dressing Goal Independent Toileting Goal Independent Bathing Goal Independent Toilet Transfer Goal Independent Shower Transfer Goal Independent Days to Meet Goals 19 Frequency of Treatment Frequency Of Treatment Once a Day Treatment Plan OT Treatment Plan ADL Training,Functional Cognition Training,Functional Mobility,Patient/Family Education,Discharge Planning Other Treatment Recommendations and Next Grooming while seated/SLUMS Treatment Focus Discharge Recommendations OT Discharge Recommendations SNF Rehab Transportation Needs at Discharge Wheelchair/Cabulance
--- NOTE | 2019-12-10 11:17 | CM.DPNOTE ---
DC Note DC order in place now by Dr Silva; patient and spouse remain agreeable to plan for [facility]. Spouse explains that patient and she have discussed transition from SNF rehab to inpatient [facility] treatment and patient agreeable, spouse researching options through their [employer] coverage, hopeful to secure a spot at either [facility] or [facility] in [place]. This HOTEL SERVER offered support and encouragement and suggested that spouse continue to work w/[employer] and these facilities to coordinate patient's admission if he remains agreeable to such. P/u scheduled for 1300 by w/c. Faxed completed and signed med list and PASRR to [facility], EULA Lopez has the # for N2N report P: DC to [facility] today, auth through [employer] remains active, updated COVID-19 is Neg. MARI Herrera
--- NOTE | 2019-12-10 13:30 | PT-IP ANOTE ---
Attempted to see pt @13:30, pt was already d/c.
--- NOTE | 2019-12-20 07:51 | P.DS_ITS ---
History of Present Illness History of Present Illness Chief complaint: Stop ETOH 2 days ago Narrative: Alcohol withdrawal Patient admitted last night through the emergency room to ICU for alcohol withdrawal. Presented to the ER week complaining o weakness unsteadiness and age since of feeling nauseated and just generally feeling poorly. thinks that perhaps he may have had a seizure on the deck she not see observe but noticed that he had this tongue. Presumably when he was in the emergency room he apparently had a seizure resolve without loss of conscious but tomas of extremities. This was treated with phenobarb and resolved at med is been resolved ever since. Impression at that time by the emergency room staff was it was due to alcohol withdrawal. Patient has been drinking at least a pt of vodka a daily for perhaps 20 years. However this past 6 months due to several things that happened in his life he is up the dose to approximately a qt of vodka a day period and this is been going on for several months. He is have been discussing it discontinuing the alcohol but apparently he decided to stop it altogether 2 days ago. He apparently stopped it approximately 4 days about as 10 years ago when he had heart surgery. He did not have withdrawals at that time. is unaware of him having any withdrawal symptoms in the past but is it out primarily arm pressure was because he has a quit drinking. No history of head trauma. Presumably takes his metoprolol for his cardiac s tatus. Has history of coronary artery disease 2009 underwent stent placement he had a non ST elevated myocardial infarction. Sees supervisor receiving and processing in [place] has seen recently. Additionally has several months later apparently had 2 more stents placed because of narrowing of the blood vessels obviously. He presumably has been on Pradaxa intermittently since then this was stopped recently because he had an epidural steroid. His other problem is his back pain he has chronic back pain she has had physical therapy. Sees orthopedics for same had epidural steroid placed the 10 days or so ago. Discharge Providers Provider Date of admission: 12/02/19 20:44 Discharge Date: 12/02/19 Primary care physician: Eduar Lara MD Consults: 12/02/19 21:35 Consult to Discharge Planning Routine Comment: Needs Alcohol treatment plan 12/04/19 08:33 Consult to Occupational Therapy Evaluate & Treat Comment: Physician Instructions: Evaluate and treat Consult to Physical Therapy Evaluate & Treat Comment: Physician Instructions: Evaluate and Treat 12/04/19 09:51 Consult to Hospitalist Service Routine Comment: Consulting Provider: Jesus Limon Reason for consultation: Alcohol withdrawal Has provider been notified: Yes 12/05/19 04:43 Consult to Respiratory Therapy Evaluate & Treat Comment: ETOH W/D, CHF, congestion Physician Instructions: Evaluate and treat 12/06/19 05:28 Consult to Speech Therapy Evaluate & Treat Comment: swallow evaluation, ETOH W/D, AMS, aspiration risk Physician Instructions: Evaluate and treat Discharge provider: Eduar Lara MD Exam Vital Signs (past 8 hours): Oxygen Delivery Method Room Air Oxygen Flow Rate 0 Objective Labs Result Diagrams: 12/09/19 11:20 12/09/19 11:20 Discharge Assessment & Plan Assessment and Plan Plan of Treatment: Discharge to assisted for continued physical rehab with skilled therapies. Once appropriate suggest strongly patient be discharged to inpatient rehab for alcoholism treatment The patient had diagnosis of acute hypoxic respiratory failure The patient had a diagnosis of acute heart failure with reduced ejection fraction unknown chronicity Discharge Plan Discharge Plan Patient Disposition: SNF Transfer to: [facility] and [facility] Under care of provider: staff Consult as needed: Dental, Hearing, Mental health, Podiatry and Vision Provider Discharge Comment: Patient to require occupational therapy and physical therapy Arrangements to be made for eventual transfer to inpatient alcohol treatment program Discharge orders & Medications Prescriptions: Continued aspirin [Adult Low Dose Aspirin] 81 mg tablet,delayed release (DR/EC) 81 mg PO DAILY RF: 0 atorvastatin [Lipitor] 80 mg tablet 80 mg PO DAILY Qty: 90 RF: 3 metoprolol tartrate 25 mg tablet 50 mg PO DAILY Qty: 180 RF: 3 Follow up/Referrals: Eduar Lara MD [Primary Care Provider] - Discharge Health Status Multidrug resistant organism: No MDRO Precautions: [place] Diet/Activity/Treatments Diet: Diet as Tolerated Liquid consistency: Normal/Thin Food texture: Regular Skin/Wound/Dressing Care Skin care: Left Heel early pressure changes [facility] Reason for rehabilitation: Recovery r/t decondition Rehab type: Physical therapy, Occupational therapy and Speech therapy Discharge Data Primary Care Provider: Eduar Lara Discharges patient from system. Discharge Date/Time: 12/10/19 13:20
== END 2019-12-10 13:20 | DRG 896 ==
LOC: ED 17:58 → ICU 22:37
PROVIDERS: Emergency Medicine; Internal Medicine; Nurse Practitioner Adult Health; Admitting Provider Internal Medicine; Emergency Provider Emergency Medicine; PCP Family Medicine; Referring Provider Emergency Medicine; Visit Provider Family Medicine
DX: F10.231 Alcohol dependence with withdrawal delirium (principal); I50.21 Acute systolic (congestive) heart failure; J96.01 Acute respiratory failure with hypoxia; E87.1 Hypo-osmolality and hyponatremia; Y90.0 Blood alcohol level of less than 20 mg/100 ml; K70.10 Alcoholic hepatitis without ascites; E87.6 Hypokalemia; D69.59 Other secondary thrombocytopenia; T42.4X5A Adverse effect of benzodiazepines, initial encounter; I25.10 Atherosclerotic heart disease of native coronary artery without angina pectoris; F17.210 Nicotine dependence, cigarettes, uncomplicated; G89.29 Other chronic pain; Z91.14 Patient's other noncompliance with medication regimen; R00.0 Tachycardia, unspecified; I73.9 Peripheral vascular disease, unspecified; Z11.59 Encounter for screening for other viral diseases
CPT/HCPCS: 36415; 70450; 70496; 70498; 70552; 71045; 76700; 80048; 80053; 80076; 80305; 80320; 81001; 82962; 83690; 83735; 83880; 84132; 84145; 84484; 85025; 87070; 87077; 87147; 87205; 87635; 87797; 92526; 92610; 93005; 93010; 93306; 94640; 94762; 94799; 96374; 96375; 97110; 97116; 97163; 97166; 97530; 97535; 99223; 99232; 99233; 99238; 99285; J0295; J1630; J1650; J1940; J2060; J2560; J3475; J3480; Q9967

== ENCOUNTER → 2020-02-21 07:17 | Outpatient (CLI) | payer BC, SELFPAY ==
[2020-02-21 08:39] LABS: Alanine Aminotransferase 17 IU/L (<50); Albumin 4.2 g/dL (3.5-5.0); Albumin Globulin Ratio 1.6 (1.0-2.8); Alkaline Phosphatase 97 U/L (38-126); Aspartate Aminotransferase 26 IU/L (17-59); BUN Creatinine Ratio 18.6 (6-22); Bilirubin Total 0.4 mg/dL (0.2-1.3); Blood Urea Nitrogen 13 mg/dL (9-20); Calcium 9.8 mg/dL (8.4-10.2); Carbon Dioxide 30 mmol/L (22-32); Chloride 105 mmol/L (98-107); Cholesterol 213 mg/dL (140-199); Estimated Glomerular Filt Rate > 60.0 mL/min (>60); Globulin 2.6 g/dL (1.7-4.1); Glucose 94 mg/dL (80-110); HDL Cholesterol 42 mg/dL (40-60); HEMOLYSIS < 15 (0-50); LDL Cholesterol Calculated 138 mg/dL (<100); Potassium 4.2 mmol/L (3.4-5.1); Sodium 139 mmol/L (137-145); Total Protein 6.8 g/dL (6.3-8.2); Triglycerides 163 mg/dL (35-150)
== END ==
PROVIDERS: PCP Registered Nurse; Referring Provider Registered Nurse; Visit Provider Registered Nurse
DX: R74.8 Abnormal levels of other serum enzymes (principal); E78.2 Mixed hyperlipidemia
CPT/HCPCS: 36415; 80053; 80061

== ENCOUNTER → 2020-02-22 15:11 | Outpatient (CLI) | payer OTHER, SELFPAY ==
[2020-02-22 17:27] LABS: Cholesterol 234 mg/dL (140-199); HDL Cholesterol 50 mg/dL (40-60); LDL Cholesterol Calculated 151 mg/dL (<100); Triglycerides 163 mg/dL (35-150)
== END ==
PROVIDERS: PCP Registered Nurse; Referring Provider Registered Nurse; Visit Provider Registered Nurse
DX: E78.2 Mixed hyperlipidemia (principal)
CPT/HCPCS: 36415; 80061

== ENCOUNTER → 2020-05-30 10:32 | Outpatient (CLI) | payer OTHER, SELFPAY ==
--- NOTE | 2020-05-30 10:36 | DI.RAD.S_ITS ---
PROCEDURE: XR CERVICAL SPINE 2V OR 3V INDICATIONS: neck pain TECHNIQUE: 3 view(s) of the cervical spine were acquired. COMPARISON: [facility], CR, XR CERVICAL SPINE 4V OR 5V, 07/07/2018, 17:15. FINDINGS: Bones: No fractures or dislocations to the C7-T1 level. The lateral masses of C1 appear intact on the odontoid view. No suspicious bony lesions. Multilevel degenerative disc space narrowing most notable at C5-6, C6-7. Prominent uncovertebral hypertrophy is present. Soft tissues: No prevertebral soft tissue swelling. IMPRESSION: Degenerative changes, slightly progressive compared to 2019. As clinically indicated, MR may be obtained for further evaluation. Dictated by: Greta Hu M.D. on 05/30/2020 at 13:51 Approved by: Greta Hu M.D. on 05/30/2020 at 13:55
[2020-05-30 11:47] LABS: Add Manual Diff / Slide Review NO; Basophils Absolute Auto 100 /uL (0-100); Basophils Percent Auto 0.9 % (0-2); Eosinophils Absolute Auto 100 /uL (0-450); Eosinophils Percent Auto 1.1 % (2-4); Hematocrit 40.6 % (41-53); Hemoglobin 13.9 g/dL (13.5-17.5); Lymphocytes Absolute Auto 1600 /uL (1100-4500); Lymphocytes Percent Auto 28.2 % (25-40); Mean Corpuscular HGB Conc 34.2 % (30-36); Mean Corpuscular Hemoglobin 32.1 PG (26-34); Mean Corpuscular Volume 93.8 fL (80-100); Monocytes Absolute Auto 500 /uL (0-900); Monocytes Percent Auto 8.5 % (3-14); Neutrophils Absolute Auto 3400 /uL (1500-7000); Neutrophils Percent Auto 61.3 % (50-75); Platelet Count 193 X10^3/uL (150-400); Red Blood Cell Count 4.33 X10^6/uL (4.5-5.9); Red Cell Distribution Width 14.1 % (11.6-14.8); White Blood Cell Count 5.5 X10^3/uL (4.5-11.0)
[2020-05-30 12:18] LABS: Free T4, Direct Thyroxine 0.88 ng/dL (0.78-2.19)
[2020-05-30 12:32] LABS: Thyroid Stimulating Hormone 0.565 uIU/mL (0.47-4.68)
[2020-05-30 13:08] LABS: Folate > 20.0 ng/mL (2.76-20.0); Vitamin B12 483 pg/mL (239-931)
== END ==
PROVIDERS: PCP Registered Nurse; Referring Provider Registered Nurse; Visit Provider Registered Nurse
DX: M54.2 Cervicalgia (principal); G89.29 Other chronic pain; R20.2 Paresthesia of skin; F10.20 Alcohol dependence, uncomplicated; D64.9 Anemia, unspecified; R84.9 Unspecified abnormal finding in specimens from respiratory organs and thorax
CPT/HCPCS: 36415; 72040; 82607; 82746; 84439; 84443; 85025

== ENCOUNTER → 2020-07-11 08:13 | Outpatient (CLI) | payer OTHER, SELFPAY ==
--- NOTE | 2020-07-11 08:14 | DI.RAD.S_ITS ---
PROCEDURE: XR HAND RT MIN 3V INDICATIONS: bilateral hand pain TECHNIQUE: 3 views of the hand(s) acquired. COMPARISON: None. FINDINGS: Bones: No fractures or dislocations. Carpal bones are normally aligned. No suspicious bony lesions. Soft tissues: No suspicious soft tissue calcifications. IMPRESSION: No acute fracture. No osseous lesion. If symptoms and/or clinical suspicion for pathology persist, further assessment with repeat, or advanced imaging (e.g., CT, MRI, or bone scan) may be helpful for further assessment. Dictated by: Bre Murphy M.D. on 07/11/2020 at 16:16 Approved by: Bre Murphy M.D. on 07/11/2020 at 16:22
--- NOTE | 2020-07-11 08:14 | DI.RAD.S_ITS ---
PROCEDURE: XR HAND LT MIN 3V INDICATIONS: bilateral hand pain TECHNIQUE: 3 views of the hand(s) acquired. COMPARISON: None. FINDINGS: Bones: No fractures or dislocations. Carpal bones are normally aligned. No suspicious bony lesions. Soft tissues: No suspicious soft tissue calcifications. IMPRESSION: No acute fracture. No osseous lesion. If symptoms and/or clinical suspicion for pathology persist, further assessment with repeat, or advanced imaging (e.g., CT, MRI, or bone scan) may be helpful for further assessment. Dictated by: Bre Murphy M.D. on 07/11/2020 at 16:15 Approved by: Bre Murphy M.D. on 07/11/2020 at 16:16
== END ==
PROVIDERS: PCP Family Medicine; Referring Provider Family Medicine; Visit Provider Family Medicine
DX: G89.29 Other chronic pain (principal); M54.2 Cervicalgia; M65.351 Trigger finger, right little finger; M79.642 Pain in left hand; M79.641 Pain in right hand
CPT/HCPCS: 73130

== ENCOUNTER → 2020-09-01 08:34 | Outpatient (CLI) | payer OTHER, SELFPAY ==
--- NOTE | 2020-09-01 | DI.RAD.S_ITS ---
PROCEDURE: XR EYE FOREIGN BODY LT INDICATIONS: MRI SCREENING TECHNIQUE: A single view of the orbits was acquired. COMPARISON: [facility], CT, CT HEAD/BRAIN WO CON, 12/02/2019, 18:35. [facility], CR, EYE FB DETECTION 1V, 12/16/2013, 16:50. FINDINGS: Soft tissues: No metallic foreign bodies are visualized around the orbits. Bones: Bony structures appear unremarkable. Visualized sinuses appear clear. IMPRESSION: No metallic foreign body demonstrated. Dictated by: Ruben Danielle M.D. on 09/01/2020 at 9:31 Approved by: Ruben Danielle M.D. on 09/01/2020 at 9:33
--- NOTE | 2020-09-01 08:35 | DI.MRI.S_ITS ---
PROCEDURE: MR CERVICAL SPINE WO CON INDICATIONS: Chronic neck pain TECHNIQUE: Noncontrast sagittal T1 spin echo and T2 fast spin echo, sagittal STIR, foraminal oblique sagittal T2 fast spin echo, and axial gradient echo or T2 fast spin echo through the cervical spine. COMPARISON: [facility], MR, C-SPINE WITHOUT CONTRAST, 09/07/2007, 7:09. FINDINGS: Image quality: Excellent. Alignment and Curvature: There is normal bony alignment. Bone Marrow: Marrow demonstrates normal overall signal. Spinal Cord: Visualized spinal cord has normal size and signal. No cerebellar tonsillar herniation. Paraspinous Soft Tissues: No paravertebral masses. Prevertebral soft tissues are normal in thickness. C2-C3: Moderate disc desiccation. Mild bilateral facet hypertrophy. Mild canal stenosis. Mild bilateral foraminal stenosis. No significant change. C3-C4: Mild disc height loss and desiccation. Mild diffuse disc bulge. Mild facet and uncovertebral hypertrophy bilaterally. Mild canal stenosis. Moderate bilateral foraminal stenosis, increased from the prior examination. C4-C5: Mild disc height loss and desiccation. Mild diffuse disc bulge. Moderate facet and uncovertebral hypertrophy bilaterally. Moderate canal stenosis. Severe right and moderate left foraminal stenosis. New right C5 nerve root compression. C5-C6: Mild disc height loss and desiccation. Mild diffuse disc bulge. Mild facet and uncovertebral hypertrophy bilaterally. Moderate canal stenosis. Moderate bilateral foraminal stenosis, increased from the prior examination. C6-C7: Mild disc height loss and desiccation. Mild diffuse disc bulge. Mild facet and uncovertebral hypertrophy, left greater than right. Increased, mild canal stenosis. Increased, severe left and moderate right foraminal stenosis. New left C7 nerve root compression. C7-T1: Mild disc height loss and desiccation. Mild facet and uncovertebral hypertrophy bilaterally. Mild canal stenosis. Mild bilateral foraminal stenosis. No significant change. IMPRESSION: 1. Multilevel degenerative disc and facet disease, as well as uncovertebral hypertrophy. 2. 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 3. Multilevel foraminal stenoses, worst at C4-C5 and C6-C7, where there is associated intraforaminal nerve root compression. Recommend correlation with clinical symptoms to ascertain relevance of these findings. Dictated by: Bre Murphy M.D. on 09/01/2020 at 11:31 Approved by: Bre Murphy M.D. on 09/01/2020 at 11:34
== END ==
PROVIDERS: PCP Family Medicine; Referring Provider Family Medicine; Visit Provider Family Medicine
DX: M50.31 Other cervical disc degeneration, high cervical region (principal); M48.02 Spinal stenosis, cervical region
CPT/HCPCS: 70030; 72141

== ENCOUNTER 2021-01-23 09:00 | Outpatient (RCR) | payer OTHER, SELFPAY ==
--- NOTE | 2020-08-22 12:53 | PT.OIE ---
Current Diagnoses Other chronic pain (08/24/20) Cervicalgia (08/24/20) Past Medical History (Last Updated 06/09/20 @ 10:06 by Pedro Mcbride MD) Alcoholism Bilateral hand pain CAD (coronary artery disease) Chicken pox (1966) Chronic hand pain Chronic neck pain (1999) Heart attack (2009) History of heart artery stent (2008) Measles (~1970) Rheumatoid arthritis Shoulder pain Trigger finger, right little finger (04/2020) Past Surgical History (Last Reviewed 06/02/20 @ 14:52 by Pedro Mcbride MD) Anesthesia History of heart artery stent (2008) Status post rotator cuff repair Visit Care Team Role Provider Type Pedro Mcbride MD Attending Provider Physician Primary Care Provider Referring Provider Specialty: Family Practice Address: [address] [place] [address] Email: [email or web address] Physical Therapy Initial Evaluation PT-OP-A Visit Information Start: 08/22/20 08:57 Freq: Status: Active Protocol: Document 08/22/20 09:01 [facility] (Rec: 08/22/20 09:13 [facility] [id number]) Out-Patient Physical Therapy Visit Information Visit Information Visit Type Initial Evaluation Visit Start Time 09:00 Visit Stop Time 09:45 Total Visit Minutes 45 Visit Number 1 Evaluation Information Evaluation Date 08/22/20 PT-OP-B Current Condition Start: 08/22/20 08:57 Freq: Status: Active Protocol: Document 08/22/20 09:01 [facility] (Rec: 08/22/20 09:13 [facility] [id number]) Current Condition History of Current Condition History of Current Condition history of chronic neck pain, right sided pain, pain goes down to the upper trapezius, pain is always there. Getting MRI as he has problems with numbness in his hands. He has to lay down to weight of his back. Laying down is the only thing that helps take the weight off his back. 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 Plays the guitar, right handed. Future Testing and Treatments Planned pt is sidebend right, herniated disc in the low back , did cortisone injection as he had sciatica on the left side, the injection helped but now he will have pain on the right side Treatment Goals Patient/Caregiver Goals Goals include avoiding surgery , pain management to be able to live with the pain comfortably and not be as limited as what he does. He wants to be able to kayak or canoe but feels he would pay the brito. PT-OP-C Subjective Start: 08/22/20 08:57 Freq: Status: Active Protocol: Document 08/22/20 09:00 [facility] (Rec: 08/23/20 14:01 [facility] [email or web address]) Patient Questionnaires Neck Disability Index NDI Score 24 Neck Disability Index Impairment 20 to 39% Impaired (Score 10- 19) OP-PT Pain Assessment Location pain into bilateral hands Intensity 8 Scale Used Numeric (0 - 10) right sided cervical spine pain and tightness Intensity 8 Scale Used Numeric (0 - 10) Comments Pain Comments pain reported making a fist bilaterally, nerve pain in the carpal tunnel region reported PT-OP-F Manual Assessment Start: 08/22/20 08:57 Freq: Status: Active Protocol: Document 08/22/20 09:00 [facility] (Rec: 08/23/20 14:01 [facility] [email or web address]) Manual Assessments Soft Tissue Assessment Soft Tissue Mobility Assessment tightness in the right scaneles, upper trapezius, SCM , pec minor Joint Mobility Assessment Joint Mobility Assessment decreased upper cervcial flexion PT-OP-J Posture/Palpation/Skin Start: 08/22/20 08:57 Freq: Status: Active Protocol: Document 08/22/20 09:00 [facility] (Rec: 08/23/20 14:01 [facility] [email or web address]) Palpation Assessment Location right scalenes, upper trap, SCM Palpation Location right scalenes, upper trapezius, SCM muscle guarding and spasm Right C1 Palpation Location right C1 pain to palpation Palpation Findings Soft Tissue Tightness,Muscle Guarding PT-OP-K Range of Motion Start: 08/22/20 08:57 Freq: Status: Active Protocol: Document 08/22/20 09:00 [facility] (Rec: 08/23/20 14:01 [facility] [email or web address]) Cervical Spine Range of Motion Cervical Spine Active Testing Position Sitting Flexion 5 Extension 5 Rotation Left 8 Rotation Right 8 Lateral Flexion Left 5 Lateral Flexion Right 8 ROM Limitations Soft Tissue Tightness, Contracture,Pain Shoulder Goniometric Range of Motion Shoulder ROM Limitations Shoulder ROM Limitations Soft Tissue Tightness Comments bilateral shoulder tightness with limitation into shoulder flexion to 140 degrees bilaterally, history of right RC repair on the left 5 years ago PT-OP-L Special Tests Start: 08/22/20 08:57 Freq: Status: Active Protocol: Document 08/22/20 09:00 [facility] (Rec: 08/24/20 12:52 [facility] [email or web address]) Special Tests Cervical Spine Special Tests Upper Limb Tension Test Test Results + B Comments median nerve bias PT-OP-M Strength Start: 08/22/20 08:57 Freq: Status: Active Protocol: Document 08/22/20 09:00 [facility] (Rec: 08/23/20 14:02 [facility] [email or web address]) Wrist Strength Wrist Manual Muscle Testing Left Flexion (C7) 4+ Good+ Extension (C6) 4+ Good+ Right Flexion (C7) 4 Good Extension (C6) 4 Good PT-OP-Q Treatments Start: 08/22/20 08:57 Freq: Status: Active Protocol: Document 08/22/20 09:00 [facility] (Rec: 08/23/20 13:54 [facility] [email or web address]) Manual Therapy Treatment Soft Tissue Mobilization suboccipital release Mobilization Type Myofascial Release right sided scanele and upper trapezius release Body Location scalenes and upper trapezius right side Mobilization Type Myofascial Release PT-OP-T Assessment and Plan Start: 08/22/20 08:57 Freq: Status: Active Protocol: Document 08/22/20 09:00 [facility] (Rec: 08/24/20 12:51 [facility] [email or web address]) Physical Therapy Assessment Rehab Potential Rehabilitation Potential Good Evaluation Complexity Number of Personal Factors/Comorbidities 0 Number of Body Systems Impaired 1-2 Clinical Presentation at Evaluation Stable Impairments Impairments Activity Tolerance,Functional Mobility,Pain,Posture,ROM,Soft Tissue Mobility,Strength,Tone Goals Decreased cervical spine ROM Senior [facility] Goal (LTG) Pt is demonstrating improved cervical ROM without increased pain LTG Duration 8 weeks muscle guarding and spasm of the R>L scalenes, upper trapezius, SCM, pec minor Short Term Goal (STG) pt is given a Home stretching program to address tightness in the musculature of the cervical spine STG Duration 5 weeks decreased ability to drive due to moderate pain Senior Care Goal (LTG) Pt is able to drive to [place] and back without increased c/ o pain LTG Duration 8 weeks pain levels cervical spine 8/10 Impairment cervical spine pain levels 8/ 10 [facility] Goal (LTG) With PT techniques and stretches for home pt is able to decrease his pain levels to 2-3/10 or better. LTG Duration 8 weeks Assessment Summary Assessment Lyndon is a 65 year old male referred to PT with chronic neck pain worse on the right side. X-ray shows a degenerative disc disease multi level. Lyndon is limited with activities such as golfing and playing his guitar. He reports he often feels pain into his knuckles and has difficulty making a fist. There is a +ULTT for median nerve tightness B With exam he is sidebent to the right with tightness on the right side of the cervcial spine in the scalenes, SCM, upper trapezius, and pec minor . There is decreased strength wrist flexion and extension 4 /5 R and 4+/5 L, C 6 myotome is 4/5 R. Cervical ROM is very limited and pt has difficulty with upper cervical flexion. Pt has a history of left RC repair and lacks full shoulder motion on the left. I did start with gentle stretching and MFR techniques today which Lyndon tolerated well. He is a good candidate for PT and treatments will include cervical ROM and stretches, anterior chest flexibility exercises, manual therapy techniques and modalities as needed for pain. Physical Therapy Plan Frequency and Duration Frequency of Treatment 2x/Week Duration of Treatment 8 Plan of Care Start Date 08/22/20 Plan of Care End Date 10/17/20 Therapeutic Interventions Therapeutic Interventions Home Exercise Program,Manual Therapy,Neuromuscular Re- education,Patient/Caregiver Education,Self-Care/Home Management,Soft Tissue Mobilization,Therapeutic Exercises Next Visit Focus/Plan Next Note Type Treatment Note Next Visit Plan Review stretches for the cervical spine, pec minor stretches, manual therapy techniques to release the tightness in the cervical spinal musculature
--- NOTE | 2020-08-24 12:53 | PT.OPPOC ---
Physical, Occupational & Speech Therapy At [facility] Current Diagnoses Other chronic pain (08/24/20) Cervicalgia (08/24/20) Visit Care Team Role Provider Type Pedro Mcbride MD Attending Provider Physician Primary Care Provider Referring Provider Specialty: Family Practice Address: [address] [place] [address] Email: [email or web address] Plan Of Care PT-OP-T Assessment and Plan Start: 08/22/20 08:57 Freq: Status: Active Protocol: Document 08/22/20 09:00 [facility] (Rec: 08/24/20 12:51 [facility] [email or web address]) Physical Therapy Assessment Rehab Potential Rehabilitation Potential Good Evaluation Complexity Number of Personal Factors/Comorbidities 0 Number of Body Systems Impaired 1-2 Clinical Presentation at Evaluation Stable Impairments Impairments Activity Tolerance,Functional Mobility,Pain,Posture,ROM,Soft Tissue Mobility,Strength,Tone Goals Decreased cervical spine ROM [employer] Goal (LTG) Pt is demonstrating improved cervical ROM without increased pain LTG Duration 8 weeks muscle guarding and spasm of the R>L scalenes, upper trapezius, SCM, pec minor Short Term Goal (STG) pt is given a Home stretching program to address tightness in the musculature of the cervical spine STG Duration 5 weeks decreased ability to drive due to moderate pain [employer] Goal (LTG) Pt is able to drive to [place] and back without increased c/ o pain LTG Duration 8 weeks pain levels cervical spine 8/10 Impairment cervical spine pain levels 8/ 10 [employer] Goal (LTG) With PT techniques and stretches for home pt is able to decrease his pain levels to 2-3/10 or better. LTG Duration 8 weeks Assessment Summary Assessment Lyndon is a 65 year old male referred to PT with chronic neck pain worse on the right side. X-ray shows a degenerative disc disease multi level. Lyndon is limited with activities such as golfing and playing his guitar. He reports he often feels pain into his knuckles and has difficulty making a fist. There is a +ULTT for median nerve tightness B With exam he is sidebent to the right with tightness on the right side of the cervcial spine in the scalenes, SCM, upper trapezius, and pec minor . There is decreased strength wrist flexion and extension 4 /5 R and 4+/5 L, C 6 myotome is 4/5 R. Cervical ROM is very limited and pt has difficulty with upper cervical flexion. Pt has a history of left RC repair and lacks full shoulder motion on the left. I did start with gentle stretching and MFR techniques today which Haney tolerated well. He is a good candidate for PT and treatments will include cervical ROM and stretches, anterior chest flexibility exercises, manual therapy techniques and modalities as needed for pain. Physical Therapy Plan Frequency and Duration Frequency of Treatment 2x/Week Duration of Treatment 8 Plan of Care Start Date 08/22/20 Plan of Care End Date 10/17/20 Therapeutic Interventions Therapeutic Interventions Home Exercise Program,Manual Therapy,Neuromuscular Re- education,Patient/Caregiver Education,Self-Care/Home Management,Soft Tissue Mobilization,Therapeutic Exercises Next Visit Focus/Plan Next Note Type Treatment Note Next Visit Plan Review stretches for the cervical spine, pec minor stretches, manual therapy techniques to release the tightness in the cervical spinal musculature Plan of Care Dates Plan of Care Start Date 08/22/20 Plan of Care End Date 10/17/20 Electronically Signed by: Cristiana Anderson, PT 08/24/20 [id number] Please Sign and Return: I have reviewed this Plan of Care and certify that the skilled therapy services above are required to meet the patient?s needs. Physician Signature Date Printed Name and Credentials Clinical Instructor Signature Printed Name and Credentials
--- NOTE | 2020-08-24 13:00 | PT.OTN ---
Current Diagnoses Other chronic pain (08/24/20) Cervicalgia (08/24/20) Physical Therapy Treatment Note PT-OP-A Visit Information Start: 08/22/20 08:57 Freq: Status: Active Protocol: Document 08/24/20 12:54 [facility] (Rec: 08/24/20 12:59 [facility] [email or web address]) Out-Patient Physical Therapy Visit Information Visit Information Visit Type Treatment Note Visit Start Time 09:00 Visit Stop Time 09:45 Total Visit Minutes 45 Visit Number 2 PT-OP-B Current Condition Start: 08/22/20 08:57 Freq: Status: Active Protocol: Document 08/22/20 09:01 [facility] (Rec: 08/22/20 09:13 [facility] [id number]) Current Condition History of Current Condition History of Current Condition history of chronic neck pain, right sided pain, pain goes down to the upper trapezius, pain is always there. Getting MRI as he has problems with numbness in his hands. He has to lay down to weight of his back. Laying down is the only thing that helps take the weight off his back. 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 Plays the [email or web address], right handed. Future Testing and Treatments Planned pt is sidebend right, herniated disc in the low back , did cortisone injection as he had sciatica on the left side, the injection helped but now he will have pain on the right side Treatment Goals Patient/Caregiver Goals Goals include avoiding surgery , pain management to be able to live with the pain comfortably and not be as limited as what he does. He wants to be able to kayak or canoe but feels he would pay the brito. PT-OP-C Subjective Start: 08/22/20 08:57 Freq: Status: Active Protocol: Document 08/24/20 12:54 [facility] (Rec: 08/24/20 12:59 [facility] [email or web address]) OP-PT Subjective Patient Comments Patient Comments pt reports the treatment last visit really helped. He is going to try and play golf this weekend. PT-OP-F Manual Assessment Start: 08/22/20 08:57 Freq: Status: Active Protocol: Document 08/22/20 09:00 [facility] (Rec: 08/23/20 14:01 [facility] [email or web address]) Manual Assessments Soft Tissue Assessment Soft Tissue Mobility Assessment tightness in the right scaneles, upper trapezius, SCM , pec minor Joint Mobility Assessment Joint Mobility Assessment decreased upper cervcial flexion PT-OP-J Posture/Palpation/Skin Start: 08/22/20 08:57 Freq: Status: Active Protocol: Document 08/22/20 09:00 [facility] (Rec: 08/23/20 14:01 [facility] [email or web address]) Palpation Assessment Location right scalenes, upper trap, SCM Palpation Location right scalenes, upper trapezius, SCM muscle guarding and spasm Right C1 Palpation Location right C1 pain to palpation Palpation Findings Soft Tissue Tightness,Muscle Guarding PT-OP-K Range of Motion Start: 08/22/20 08:57 Freq: Status: Active Protocol: Document 08/22/20 09:00 [facility] (Rec: 08/23/20 14:01 [facility] [email or web address]) Cervical Spine Range of Motion Cervical Spine Active Testing Position Sitting Flexion 5 Extension 5 Rotation Left 8 Rotation Right 8 Lateral Flexion Left 5 Lateral Flexion Right 8 ROM Limitations Soft Tissue Tightness, Contracture,Pain Shoulder Goniometric Range of Motion Shoulder ROM Limitations Shoulder ROM Limitations Soft Tissue Tightness Comments bilateral shoulder tightness with limitation into shoulder flexion to 140 degrees bilaterally, history of right RC repair on the left 5 years ago PT-OP-L Special Tests Start: 08/22/20 08:57 Freq: Status: Active Protocol: Document 08/22/20 09:00 [facility] (Rec: 08/24/20 12:52 [facility] [email or web address]) Special Tests Cervical Spine Special Tests Upper Limb Tension Test Test Results + B Comments median nerve bias PT-OP-M Strength Start: 08/22/20 08:57 Freq: Status: Active Protocol: Document 08/22/20 09:00 [facility] (Rec: 08/23/20 14:02 [facility] [email or web address]) Wrist Strength Wrist Manual Muscle Testing Left Flexion (C7) 4+ Good+ Extension (C6) 4+ Good+ Right Flexion (C7) 4 Good Extension (C6) 4 Good PT-OP-Q Treatments Start: 08/22/20 08:57 Freq: Status: Active Protocol: Document 08/24/20 12:54 [facility] (Rec: 08/24/20 12:59 [facility] [email or web address]) Therapeutic Exercises Supine Exercises anterior chest stretch on foam roll Reps/Minutes 1-2 minutes supine chin tucks Reps/Minutes x 10 reps Sitting Exercises seated scalene stretches Reps/Minutes 2 reps holding 30 seconds each Manual Therapy Treatment Soft Tissue Mobilization pec minor release Body Position Supine suboccipital release Mobilization Type Myofascial Release right sided scanele and upper trapezius release Body Location scalenes, SCM, and upper trapezius right side Mobilization Type Myofascial Release Comments per pt request gusha was used on the upper trapezius and SCM attachments to the clavicle. Pt reports he has had good success with this in the past Manual Techniques median nerve glides Comments right greater than left sided tightness PT-OP-R Modalities Start: 08/22/20 08:57 Freq: Status: Active Protocol: Document 08/24/20 12:59 [facility] (Rec: 08/24/20 13:00 [facility] [email or web address]) Ultrasound Therapy Treatment right upper trapezius Treatment Duration (minutes) 8 Patient Position Sidelying Coupling Medium Ultrasound Gel Applicator Size (cm2) 5 Mode Setting Continuous Duty Cycle 100% Intensity Setting (w/cm2) 1.5 PT-OP-T Assessment and Plan Start: 08/22/20 08:57 Freq: Status: Active Protocol: Document 08/24/20 12:54 [facility] (Rec: 08/24/20 12:59 [facility] [email or web address]) Physical Therapy Assessment Assessment Summary Assessment pt had a good response from his first PT visit and felt MFR techniques helped quite a bit. I worked today releaseing the pec minor, SCM, scalenes, and Upper trapezius . Stretches for HEP were reviewed Physical Therapy Plan Frequency and Duration Frequency of Treatment 2x/Week Duration of Treatment 8 Plan of Care Start Date 08/22/20 Plan of Care End Date 10/17/20 Next Visit Focus/Plan Next Note Type Treatment Note Next Visit Plan Review stretches for the cervical spine, pec minor stretches, manual therapy techniques to release the tightness in the cervical spinal musculature
--- NOTE | 2020-08-31 15:56 | PT.OTN ---
Current Diagnoses Other chronic pain (08/31/20) Cervicalgia (08/31/20) Physical Therapy Treatment Note PT-OP-A Visit Information Start: 08/22/20 08:57 Freq: Status: Active Protocol: Document 08/31/20 09:50 [facility] (Rec: 08/31/20 09:51 [facility] [id number]) Out-Patient Physical Therapy Visit Information Visit Information Visit Start Time 09:45 Visit Stop Time 10:30 Total Visit Minutes 45 Visit Number 3 PT-OP-B Current Condition Start: 08/22/20 08:57 Freq: Status: Active Protocol: Document 08/22/20 09:01 [facility] (Rec: 08/22/20 09:13 [facility] [id number]) Current Condition History of Current Condition History of Current Condition history of chronic neck pain, right sided pain, pain goes down to the upper trapezius, pain is always there. Getting MRI as he has problems with numbness in his hands. He has to lay down to weight of his back. Laying down is the only thing that helps take the weight off his back. 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 Plays the [employer], right handed. Future Testing and Treatments Planned pt is sidebend right, herniated disc in the low back , did cortisone injection as he had sciatica on the left side, the injection helped but now he will have pain on the right side Treatment Goals Patient/Caregiver Goals Goals include avoiding surgery , pain management to be able to live with the pain comfortably and not be as limited as what he does. He wants to be able to kayak or canoe but feels he would pay the brito. PT-OP-C Subjective Start: 08/22/20 08:57 Freq: Status: Active Protocol: Document 08/31/20 09:50 [facility] (Rec: 08/31/20 09:51 [facility] [id number]) OP-PT Subjective Patient Comments Patient Comments MRI scheduled for tomorrow morning, no change in hand paiin, if he lays on his left side his hand will go numb. PT-OP-F Manual Assessment Start: 08/22/20 08:57 Freq: Status: Active Protocol: Document 08/22/20 09:00 [facility] (Rec: 08/23/20 14:01 [facility] [email or web address]) Manual Assessments Soft Tissue Assessment Soft Tissue Mobility Assessment tightness in the right scaneles, upper trapezius, SCM , pec minor Joint Mobility Assessment Joint Mobility Assessment decreased upper cervcial flexion PT-OP-J Posture/Palpation/Skin Start: 08/22/20 08:57 Freq: Status: Active Protocol: Document 08/22/20 09:00 [facility] (Rec: 08/23/20 14:01 [facility] [email or web address]) Palpation Assessment Location right scalenes, upper trap, SCM Palpation Location right scalenes, upper trapezius, SCM muscle guarding and spasm Right C1 Palpation Location right C1 pain to palpation Palpation Findings Soft Tissue Tightness,Muscle Guarding PT-OP-K Range of Motion Start: 08/22/20 08:57 Freq: Status: Active Protocol: Document 08/22/20 09:00 [facility] (Rec: 08/23/20 14:01 [facility] [email or web address]) Cervical Spine Range of Motion Cervical Spine Active Testing Position Sitting Flexion 5 Extension 5 Rotation Left 8 Rotation Right 8 Lateral Flexion Left 5 Lateral Flexion Right 8 ROM Limitations Soft Tissue Tightness, Contracture,Pain Shoulder Goniometric Range of Motion Shoulder ROM Limitations Shoulder ROM Limitations Soft Tissue Tightness Comments bilateral shoulder tightness with limitation into shoulder flexion to 140 degrees bilaterally, history of right RC repair on the left 5 years ago PT-OP-L Special Tests Start: 08/22/20 08:57 Freq: Status: Active Protocol: Document 08/22/20 09:00 [facility] (Rec: 08/24/20 12:52 [facility] [email or web address]) Special Tests Cervical Spine Special Tests Upper Limb Tension Test Test Results + B Comments median nerve bias PT-OP-M Strength Start: 08/22/20 08:57 Freq: Status: Active Protocol: Document 08/22/20 09:00 [facility] (Rec: 08/23/20 14:02 [facility] [email or web address]) Wrist Strength Wrist Manual Muscle Testing Left Flexion (C7) 4+ Good+ Extension (C6) 4+ Good+ Right Flexion (C7) 4 Good Extension (C6) 4 Good PT-OP-Q Treatments Start: 08/22/20 08:57 Freq: Status: Active Protocol: Document 08/31/20 09:45 [facility] (Rec: 08/31/20 15:56 [facility] [email or web address]) Manual Therapy Treatment Soft Tissue Mobilization sidelying scapular mobilizations with manual pec minor stretch Body Position left sidelying pec minor release Body Position Supine suboccipital release Mobilization Type Myofascial Release right sided scanele and upper trapezius release Body Location scalenes, SCM, and upper trapezius right side Mobilization Type Myofascial Release Comments per pt request gusha was used on the upper trapezius and SCM attachments to the clavicle. Pt reports he has had good success with this in the past Manual Techniques median nerve glides Comments right greater than left sided tightness PT-OP-R Modalities Start: 08/22/20 08:57 Freq: Status: Active Protocol: Document 08/24/20 12:59 [facility] (Rec: 08/24/20 13:00 [facility] [email or web address]) Ultrasound Therapy Treatment right upper trapezius Treatment Duration (minutes) 8 Patient Position Sidelying Coupling Medium Ultrasound Gel Applicator Size (cm2) 5 Mode Setting Continuous Duty Cycle 100% Intensity Setting (w/cm2) 1.5 PT-OP-T Assessment and Plan Start: 08/22/20 08:57 Freq: Status: Active Protocol: Document 08/31/20 09:45 [facility] (Rec: 08/31/20 15:56 [facility] [email or web address]) Physical Therapy Assessment Assessment Summary Assessment SOft tissue work is helping to reduce tissue tightness. LEft side SCM was tighter than the right today. Pt encouraged to work on his stretches for his neck, anterior chest, and forearms Physical Therapy Plan Frequency and Duration Frequency of Treatment 2x/Week Duration of Treatment 8 Plan of Care Start Date 08/22/20 Plan of Care End Date 10/17/20 Therapeutic Interventions Therapeutic Interventions Home Exercise Program,Manual Therapy,Neuromuscular Re- education,Patient/Caregiver Education,Self-Care/Home Management,Soft Tissue Mobilization,Therapeutic Exercises Next Visit Focus/Plan Next Note Type Treatment Note Next Visit Plan Review stretches for the cervical spine, pec minor stretches, manual therapy techniques to release the tightness in the cervical spinal musculature
--- NOTE | 2020-09-19 12:50 | PT.OTN ---
Current Diagnoses Other chronic pain (09/19/20) Cervicalgia (09/19/20) Physical Therapy Treatment Note PT-OP-A Visit Information Start: 08/22/20 08:57 Freq: Status: Active Protocol: Document 09/19/20 12:00 [facility] (Rec: 09/19/20 12:50 [facility] [id number]) Out-Patient Physical Therapy Visit Information Visit Information Visit Type Treatment Note Visit Start Time 12:00 Visit Stop Time 12:45 Total Visit Minutes 45 Visit Number 4 Evaluation Information Evaluation Date 08/22/20 PT-OP-B Current Condition Start: 08/22/20 08:57 Freq: Status: Active Protocol: Document 08/22/20 09:01 [facility] (Rec: 08/22/20 09:13 [facility] [id number]) Current Condition History of Current Condition History of Current Condition history of chronic neck pain, right sided pain, pain goes down to the upper trapezius, pain is always there. Getting MRI as he has problems with numbness in his hands. He has to lay down to weight of his back. Laying down is the only thing that helps take the weight off his back. 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 Plays the [employer], right handed. Future Testing and Treatments Planned pt is sidebend right, herniated disc in the low back , did cortisone injection as he had sciatica on the left side, the injection helped but now he will have pain on the right side Treatment Goals Patient/Caregiver Goals Goals include avoiding surgery , pain management to be able to live with the pain comfortably and not be as limited as what he does. He wants to be able to kayak or canoe but feels he would pay the brito. PT-OP-C Subjective Start: 08/22/20 08:57 Freq: Status: Active Protocol: Document 09/19/20 12:00 [facility] (Rec: 09/19/20 12:50 [facility] [id number]) OP-PT Subjective Patient Comments Patient Comments Pt reports overall improvement , even with traveling recently . Neck not too bad today. PT-OP-F Manual Assessment Start: 08/22/20 08:57 Freq: Status: Active Protocol: Document 08/22/20 09:00 [facility] (Rec: 08/23/20 14:01 [facility] [email or web address]) Manual Assessments Soft Tissue Assessment Soft Tissue Mobility Assessment tightness in the right scaneles, upper trapezius, SCM , pec minor Joint Mobility Assessment Joint Mobility Assessment decreased upper cervcial flexion PT-OP-J Posture/Palpation/Skin Start: 08/22/20 08:57 Freq: Status: Active Protocol: Document 08/22/20 09:00 [facility] (Rec: 08/23/20 14:01 [facility] [email or web address]) Palpation Assessment Location right scalenes, upper trap, SCM Palpation Location right scalenes, upper trapezius, SCM muscle guarding and spasm Right C1 Palpation Location right C1 pain to palpation Palpation Findings Soft Tissue Tightness,Muscle Guarding PT-OP-K Range of Motion Start: 08/22/20 08:57 Freq: Status: Active Protocol: Document 08/22/20 09:00 [facility] (Rec: 08/23/20 14:01 [facility] [email or web address]) Cervical Spine Range of Motion Cervical Spine Active Testing Position Sitting Flexion 5 Extension 5 Rotation Left 8 Rotation Right 8 Lateral Flexion Left 5 Lateral Flexion Right 8 ROM Limitations Soft Tissue Tightness, Contracture,Pain Shoulder Goniometric Range of Motion Shoulder ROM Limitations Shoulder ROM Limitations Soft Tissue Tightness Comments bilateral shoulder tightness with limitation into shoulder flexion to 140 degrees bilaterally, history of right RC repair on the left 5 years ago PT-OP-L Special Tests Start: 08/22/20 08:57 Freq: Status: Active Protocol: Document 08/22/20 09:00 [facility] (Rec: 08/24/20 12:52 [facility] [email or web address]) Special Tests Cervical Spine Special Tests Upper Limb Tension Test Test Results + B Comments median nerve bias PT-OP-M Strength Start: 08/22/20 08:57 Freq: Status: Active Protocol: Document 08/22/20 09:00 [facility] (Rec: 08/23/20 14:02 [facility] [email or web address]) Wrist Strength Wrist Manual Muscle Testing Left Flexion (C7) 4+ Good+ Extension (C6) 4+ Good+ Right Flexion (C7) 4 Good Extension (C6) 4 Good PT-OP-Q Treatments Start: 08/22/20 08:57 Freq: Status: Active Protocol: Document 09/19/20 12:00 DCW (Rec: 09/19/20 12:50 [facility] [id number]) Manual Therapy Treatment Soft Tissue Mobilization sidelying scapular mobilizations with manual pec minor stretch Body Position left sidelying pec minor release Body Position Supine suboccipital release Mobilization Type Myofascial Release,Sustained Pressure right sided scanele and upper trapezius release Body Location scalenes, SCM, and upper trapezius right side Mobilization Type Myofascial Release,Strumming, Sustained Pressure,Trigger Point Release Manual Traction Cervical Details Cervical traction Body Position Supine PT-OP-R Modalities Start: 08/22/20 08:57 Freq: Status: Active Protocol: Document 08/24/20 12:59 [facility] (Rec: 08/24/20 13:00 [facility] [email or web address]) Ultrasound Therapy Treatment right upper trapezius Treatment Duration (minutes) 8 Patient Position Sidelying Coupling Medium Ultrasound Gel Applicator Size (cm2) 5 Mode Setting Continuous Duty Cycle 100% Intensity Setting (w/cm2) 1.5 PT-OP-T Assessment and Plan Start: 08/22/20 08:57 Freq: Status: Active Protocol: Document 09/19/20 12:00 DCW (Rec: 09/19/20 12:50 [facility] [id number]) Physical Therapy Assessment Goals Decreased cervical spine ROM Prison Goal (LTG) Pt is demonstrating improved cervical ROM without increased pain LTG Duration 8 weeks muscle guarding and spasm of the R>L scalenes, upper trapezius, SCM, pec minor Short Term Goal (STG) pt is given a Home stretching program to address tightness in the musculature of the cervical spine STG Duration 5 weeks decreased ability to drive due to moderate pain Fork Truck Driver Goal (LTG) Pt is able to drive to [place] and back without increased c/ o pain LTG Duration 8 weeks pain levels cervical spine 8/10 Impairment cervical spine pain levels 8/ 10 [employer]ork Truck Driver Goal (LTG) With PT techniques and stretches for home pt is able to decrease his pain levels to 2-3/10 or better. LTG Duration 8 weeks Assessment Summary Assessment Pt showing some improvement with ROM, decreasing tone, but still pretty tender with STM. Physical Therapy Plan Frequency and Duration Frequency of Treatment 2x/Week Duration of Treatment 8 Plan of Care Start Date 08/22/20 Plan of Care End Date 10/17/20 Therapeutic Interventions Therapeutic Interventions Home Exercise Program,Manual Therapy,Neuromuscular Re- education,Patient/Caregiver Education,Self-Care/Home Management,Soft Tissue Mobilization,Therapeutic Exercises Next Visit Focus/Plan Next Note Type Treatment Note Next Visit Plan Review stretches for the cervical spine, pec minor stretches, manual therapy techniques to release the tightness in the cervical spinal musculature
--- NOTE | 2020-09-21 12:01 | PT.OTN ---
Current Diagnoses Other chronic pain (09/21/20) Cervicalgia (09/21/20) Physical Therapy Treatment Note PT-OP-A Visit Information Start: 08/22/20 08:57 Freq: Status: Active Protocol: Document 09/21/20 11:15 [facility] (Rec: 09/21/20 12:01 [facility] [id number]) Out-Patient Physical Therapy Visit Information Visit Information Visit Type Treatment Note Visit Start Time 11:15 Visit Stop Time 12:00 Total Visit Minutes 45 Visit Number 5 Evaluation Information Evaluation Date 08/22/20 PT-OP-B Current Condition Start: 08/22/20 08:57 Freq: Status: Active Protocol: Document 08/22/20 09:01 [facility] (Rec: 08/22/20 09:13 [facility] [id number]) Current Condition History of Current Condition History of Current Condition history of chronic neck pain, right sided pain, pain goes down to the upper trapezius, pain is always there. Getting MRI as he has problems with numbness in his hands. He has to lay down to weight of his back. Laying down is the only thing that helps take the weight off his back. 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 Plays the [employer], right handed. Future Testing and Treatments Planned pt is sidebend right, herniated disc in the low back , did cortisone injection as he had sciatica on the left side, the injection helped but now he will have pain on the right side Treatment Goals Patient/Caregiver Goals Goals include avoiding surgery , pain management to be able to live with the pain comfortably and not be as limited as what he does. He wants to be able to kayak or canoe but feels he would pay the brito. PT-OP-C Subjective Start: 08/22/20 08:57 Freq: Status: Active Protocol: Document 09/21/20 11:15 DCW (Rec: 09/21/20 12:01 [facility] [id number]) OP-PT Subjective Patient Comments Patient Comments Pt pretty good, actually. PT-OP-F Manual Assessment Start: 08/22/20 08:57 Freq: Status: Active Protocol: Document 08/22/20 09:00 [facility] (Rec: 08/23/20 14:01 [facility] [email or web address]) Manual Assessments Soft Tissue Assessment Soft Tissue Mobility Assessment tightness in the right scaneles, upper trapezius, SCM , pec minor Joint Mobility Assessment Joint Mobility Assessment decreased upper cervcial flexion PT-OP-J Posture/Palpation/Skin Start: 08/22/20 08:57 Freq: Status: Active Protocol: Document 08/22/20 09:00 [facility] (Rec: 08/23/20 14:01 [facility] [email or web address]) Palpation Assessment Location right scalenes, upper trap, SCM Palpation Location right scalenes, upper trapezius, SCM muscle guarding and spasm Right C1 Palpation Location right C1 pain to palpation Palpation Findings Soft Tissue Tightness,Muscle Guarding PT-OP-K Range of Motion Start: 08/22/20 08:57 Freq: Status: Active Protocol: Document 08/22/20 09:00 [facility] (Rec: 08/23/20 14:01 [facility] [email or web address]) Cervical Spine Range of Motion Cervical Spine Active Testing Position Sitting Flexion 5 Extension 5 Rotation Left 8 Rotation Right 8 Lateral Flexion Left 5 Lateral Flexion Right 8 ROM Limitations Soft Tissue Tightness, Contracture,Pain Shoulder Goniometric Range of Motion Shoulder ROM Limitations Shoulder ROM Limitations Soft Tissue Tightness Comments bilateral shoulder tightness with limitation into shoulder flexion to 140 degrees bilaterally, history of right RC repair on the left 5 years ago PT-OP-L Special Tests Start: 08/22/20 08:57 Freq: Status: Active Protocol: Document 08/22/20 09:00 [facility] (Rec: 08/24/20 12:52 [facility] [email or web address]) Special Tests Cervical Spine Special Tests Upper Limb Tension Test Test Results + B Comments median nerve bias PT-OP-M Strength Start: 08/22/20 08:57 Freq: Status: Active Protocol: Document 08/22/20 09:00 [facility] (Rec: 08/23/20 14:02 [facility] [email or web address]) Wrist Strength Wrist Manual Muscle Testing Left Flexion (C7) 4+ Good+ Extension (C6) 4+ Good+ Right Flexion (C7) 4 Good Extension (C6) 4 Good PT-OP-Q Treatments Start: 08/22/20 08:57 Freq: Status: Active Protocol: Document 09/21/20 11:15 DCW (Rec: 09/21/20 12:01 [facility] [id number]) Manual Therapy Treatment Soft Tissue Mobilization sidelying scapular mobilizations with manual pec minor stretch Body Position left sidelying pec minor release Body Position Supine suboccipital release Mobilization Type Myofascial Release,Sustained Pressure right sided scanele and upper trapezius release Body Location scalenes, SCM, and upper trapezius right side Mobilization Type Myofascial Release,Strumming, Sustained Pressure,Trigger Point Release Manual Traction Cervical Details Cervical traction Body Position Supine PT-OP-R Modalities Start: 08/22/20 08:57 Freq: Status: Active Protocol: Document 08/24/20 12:59 [facility] (Rec: 08/24/20 13:00 [facility] [email or web address]) Ultrasound Therapy Treatment right upper trapezius Treatment Duration (minutes) 8 Patient Position Sidelying Coupling Medium Ultrasound Gel Applicator Size (cm2) 5 Mode Setting Continuous Duty Cycle 100% Intensity Setting (w/cm2) 1.5 PT-OP-T Assessment and Plan Start: 08/22/20 08:57 Freq: Status: Active Protocol: Document 09/21/20 11:15 DCW (Rec: 09/21/20 12:01 [facility] [id number]) Physical Therapy Assessment Goals Decreased cervical spine ROM Fdc Goal (LTG) Pt is demonstrating improved cervical ROM without increased pain LTG Duration 8 weeks muscle guarding and spasm of the R>L scalenes, upper trapezius, SCM, pec minor Short Term Goal (STG) pt is given a Home stretching program to address tightness in the musculature of the cervical spine STG Duration 5 weeks decreased ability to drive due to moderate pain Fdc Goal (LTG) Pt is able to drive to [place] and back without increased c/ o pain LTG Duration 8 weeks pain levels cervical spine 8/10 Impairment cervical spine pain levels 8/ 10 Weight Recorder Goal (LTG) With PT techniques and stretches for home pt is able to decrease his pain levels to 2-3/10 or better. LTG Duration 8 weeks Assessment Summary Assessment Pt tolerated treatment well today, improved tone throughout cervical paraspinals, still experiencing some radicular symptoms. Physical Therapy Plan Frequency and Duration Frequency of Treatment 2x/Week Duration of Treatment 8 Plan of Care Start Date 08/22/20 Plan of Care End Date 10/17/20 Therapeutic Interventions Therapeutic Interventions Home Exercise Program,Manual Therapy,Neuromuscular Re- education,Patient/Caregiver Education,Self-Care/Home Management,Soft Tissue Mobilization,Therapeutic Exercises Next Visit Focus/Plan Next Note Type Treatment Note Next Visit Plan Review stretches for the cervical spine, pec minor stretches, manual therapy techniques to release the tightness in the cervical spinal musculature
--- NOTE | 2020-09-26 14:47 | PT.OTN ---
Current Diagnoses Other chronic pain (09/26/20) Cervicalgia (09/26/20) Low back pain (09/26/20) Physical Therapy Treatment Note PT-OP-A Visit Information Start: 08/22/20 08:57 Freq: Status: Active Protocol: Document 09/26/20 10:32 DCW (Rec: 09/26/20 11:28 DCW [id number]) Out-Patient Physical Therapy Visit Information Visit Information Visit Type Treatment Note Visit Start Time 10:32 Visit Stop Time 11:15 Total Visit Minutes 43 Visit Number 6 Evaluation Information Evaluation Date 08/22/20 PT-OP-B Current Condition Start: 08/22/20 08:57 Freq: Status: Active Protocol: Document 08/22/20 09:01 AMH (Rec: 08/22/20 09:13 AMH [id number]) Current Condition History of Current Condition History of Current Condition history of chronic neck pain, right sided pain, pain goes down to the upper trapezius, pain is always there. Getting MRI as he has problems with numbness in his hands. He has to lay down to weight of his back. Laying down is the only thing that helps take the weight off his back. 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 Plays the [employer], right handed. Future Testing and Treatments Planned pt is sidebend right, herniated disc in the low back , did cortisone injection as he had sciatica on the left side, the injection helped but now he will have pain on the right side Treatment Goals Patient/Caregiver Goals Goals include avoiding surgery , pain management to be able to live with the pain comfortably and not be as limited as what he does. He wants to be able to kayak or canoe but feels he would pay the brito. PT-OP-C Subjective Start: 08/22/20 08:57 Freq: Status: Active Protocol: Document 09/26/20 10:32 DCW (Rec: 09/26/20 11:28 DCW [id number]) OP-PT Subjective Patient Comments Patient Comments Pt reports his neck felt good during his golf tournement this weekend, is hoping we can transition to his low back pain. Patient Questionnaires Neck Disability Index NDI Score 20/50 = 40% Neck Disability Index Impairment 40 to 59% Impaired (Score 20- 29) Oswestry Low Back Index Oswestry Score 25/50 = 50% Oswestry Impairment 40 to 59% Impaired (Score 40- 59) Quick Dash- Upper Extremity Quick Dash UE Score 29.54% Quick Dash UE Impairment 20 to 39% Impaired (Score 20- 39) PT-OP-F Manual Assessment Start: 08/22/20 08:57 Freq: Status: Active Protocol: Document 08/22/20 09:00 AMH (Rec: 08/23/20 14:01 AMH [email or web address]) Manual Assessments Soft Tissue Assessment Soft Tissue Mobility Assessment tightness in the right scaneles, upper trapezius, SCM , pec minor Joint Mobility Assessment Joint Mobility Assessment decreased upper cervcial flexion PT-OP-J Posture/Palpation/Skin Start: 08/22/20 08:57 Freq: Status: Active Protocol: Document 08/22/20 09:00 AMH (Rec: 08/23/20 14:01 AMH [email or web address]) Palpation Assessment Location right scalenes, upper trap, SCM Palpation Location right scalenes, upper trapezius, SCM muscle guarding and spasm Right C1 Palpation Location right C1 pain to palpation Palpation Findings Soft Tissue Tightness,Muscle Guarding PT-OP-K Range of Motion Start: 08/22/20 08:57 Freq: Status: Active Protocol: Document 08/22/20 09:00 AMH (Rec: 08/23/20 14:01 AMH [email or web address]) Cervical Spine Range of Motion Cervical Spine Active Testing Position Sitting Flexion 5 Extension 5 Rotation Left 8 Rotation Right 8 Lateral Flexion Left 5 Lateral Flexion Right 8 ROM Limitations Soft Tissue Tightness, Contracture,Pain Shoulder Goniometric Range of Motion Shoulder ROM Limitations Shoulder ROM Limitations Soft Tissue Tightness Comments bilateral shoulder tightness with limitation into shoulder flexion to 140 degrees bilaterally, history of right RC repair on the left 5 years ago PT-OP-L Special Tests Start: 08/22/20 08:57 Freq: Status: Active Protocol: Document 08/22/20 09:00 AMH (Rec: 08/24/20 12:52 AMH [email or web address]) Special Tests Cervical Spine Special Tests Upper Limb Tension Test Test Results + B Comments median nerve bias PT-OP-M Strength Start: 08/22/20 08:57 Freq: Status: Active Protocol: Document 08/22/20 09:00 AMH (Rec: 08/23/20 14:02 AMH [email or web address]) Wrist Strength Wrist Manual Muscle Testing Left Flexion (C7) 4+ Good+ Extension (C6) 4+ Good+ Right Flexion (C7) 4 Good Extension (C6) 4 Good PT-OP-Q Treatments Start: 08/22/20 08:57 Freq: Status: Active Protocol: Document 09/26/20 10:32 DCW (Rec: 09/26/20 11:28 DCW [id number]) Manual Therapy Treatment Soft Tissue Mobilization Parascapulars and mid trap Body Location R parascapulars, mid/lower trap Mobilization Type Sustained Pressure,Trigger Point Release Intensity/Depth Moderate Body Position Supine sidelying scapular mobilizations with manual pec minor stretch Body Position left sidelying suboccipital release Mobilization Type Myofascial Release,Sustained Pressure right sided scanele and upper trapezius release Body Location scalenes, SCM, and upper trapezius right side Mobilization Type Myofascial Release,Strumming, Sustained Pressure,Trigger Point Release Manual Traction Cervical Details Cervical traction Body Position Supine PT-OP-R Modalities Start: 08/22/20 08:57 Freq: Status: Active Protocol: Document 08/24/20 12:59 AMH (Rec: 08/24/20 13:00 AMH [email or web address]) Ultrasound Therapy Treatment right upper trapezius Treatment Duration (minutes) 8 Patient Position Sidelying Coupling Medium Ultrasound Gel Applicator Size (cm2) 5 Mode Setting Continuous Duty Cycle 100% Intensity Setting (w/cm2) 1.5 PT-OP-T Assessment and Plan Start: 08/22/20 08:57 Freq: Status: Active Protocol: Document 09/26/20 10:32 DCW (Rec: 09/26/20 14:47 DCW [id number]) Physical Therapy Assessment Rehab Potential Rehabilitation Potential Good Impairments Impairments Activity Tolerance,Functional Mobility,Pain,Posture,ROM,Soft Tissue Mobility,Strength,Tone Goals Decreased cervical spine ROM Hairspring Studder Goal (LTG) Pt is demonstrating improved cervical ROM without increased pain LTG Duration 8 weeks muscle guarding and spasm of the R>L scalenes, upper trapezius, SCM, pec minor Short Term Goal (STG) pt is given a Home stretching program to address tightness in the musculature of the cervical spine STG Duration 5 weeks decreased ability to drive due to moderate pain Longterm Goal (LTG) Pt is able to drive to [place] and back without increased c/ o pain LTG Duration 8 weeks pain levels cervical spine 8/10 Impairment cervical spine pain levels 8/ 10 Longterm Goal (LTG) With PT techniques and stretches for home pt is able to decrease his pain levels to 2-3/10 or better. LTG Duration 8 weeks Assessment Summary Assessment Pt's neck is subjectively greatly improved, would like to have some work done on his low back next visit, feels his bulging disk is limiting his movement more than anything else. Physical Therapy Plan Frequency and Duration Frequency of Treatment 2x/Week Duration of Treatment 8 Plan of Care Start Date 08/22/20 Plan of Care End Date 10/17/20 Therapeutic Interventions Therapeutic Interventions Home Exercise Program,Manual Therapy,Neuromuscular Re- education,Patient/Caregiver Education,Self-Care/Home Management,Soft Tissue Mobilization,Therapeutic Exercises Next Visit Focus/Plan Next Note Type Progress Note Next Visit Plan Assess lumbar spine
--- NOTE | 2020-10-03 16:24 | PT.OTN ---
Current Diagnoses Other chronic pain (10/03/20) Cervicalgia (10/03/20) Low back pain (10/03/20) Physical Therapy Treatment Note PT-OP-A Visit Information Start: 08/22/20 08:57 Freq: Status: Active Protocol: Document 10/03/20 13:54 AMH (Rec: 10/03/20 14:00 [facility] [id number]) Out-Patient Physical Therapy Visit Information Visit Information Visit Type Re-Evaluation Visit Start Time 01:50 Visit Stop Time 14:30 Total Visit Minutes 45 Visit Number 7 PT-OP-B Current Condition Start: 08/22/20 08:57 Freq: Status: Active Protocol: Document 08/22/20 09:01 AMH (Rec: 08/22/20 09:13 [facility] [id number]) Current Condition History of Current Condition History of Current Condition history of chronic neck pain, right sided pain, pain goes down to the upper trapezius, pain is always there. Getting MRI as he has problems with numbness in his hands. He has to lay down to weight of his back. Laying down is the only thing that helps take the weight off his back. 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 Plays the [employer], right handed. Future Testing and Treatments Planned pt is sidebend right, herniated disc in the low back , did cortisone injection as he had sciatica on the left side, the injection helped but now he will have pain on the right side Treatment Goals Patient/Caregiver Goals Goals include avoiding surgery , pain management to be able to live with the pain comfortably and not be as limited as what he does. He wants to be able to kayak or canoe but feels he would pay the brito. PT-OP-C Subjective Start: 08/22/20 08:57 Freq: Status: Active Protocol: Document 10/03/20 13:54 AMH (Rec: 10/03/20 14:00 [facility] [id number]) OP-PT Subjective Patient Comments Patient Comments pt would like to include his low back in his treatment. He played a lot of golf in the last couple of weeks and the lower right side of his lumbar spine is affected by golf. PT-OP-F Manual Assessment Start: 08/22/20 08:57 Freq: Status: Active Protocol: Document 08/22/20 09:00 AMH (Rec: 08/23/20 14:01 AMH [email or web address]) Manual Assessments Soft Tissue Assessment Soft Tissue Mobility Assessment tightness in the right scaneles, upper trapezius, SCM , pec minor Joint Mobility Assessment Joint Mobility Assessment decreased upper cervcial flexion PT-OP-J Posture/Palpation/Skin Start: 08/22/20 08:57 Freq: Status: Active Protocol: Document 10/03/20 16:22 AMH (Rec: 10/03/20 16:24 AMH [email or web address]) Palpation Assessment Location quadratus lumborum R Palpation Findings Soft Tissue Tightness,Muscle Guarding,Tenderness right piriformis Palpation Findings Soft Tissue Tightness,Spasm, Muscle Guarding right sacral ILB Palpation Findings Tenderness Palpation Details spasm of the piriformis attachments to the sacrum PT-OP-K Range of Motion Start: 08/22/20 08:57 Freq: Status: Active Protocol: Document 10/03/20 16:22 AMH (Rec: 10/03/20 16:24 AMH [email or web address]) Lumbar Spine Range of Motion Lumbar Spine Active Testing Position Standing Flexion 50 ROM Limitations Soft Tissue Tightness Hip Goniometric Range of Motion Hip ROM Limitations Hip ROM Limitations Soft Tissue Tightness Comments + john test Right SLR 45 R 60 L hip flexion limited to 100 degrees right 120 Left PT-OP-L Special Tests Start: 08/22/20 08:57 Freq: Status: Active Protocol: Document 08/22/20 09:00 AMH (Rec: 08/24/20 12:52 AMH [email or web address]) Special Tests Cervical Spine Special Tests Upper Limb Tension Test Test Results + B Comments median nerve bias PT-OP-M Strength Start: 08/22/20 08:57 Freq: Status: Active Protocol: Document 08/22/20 09:00 AMH (Rec: 08/23/20 14:02 AMH [email or web address]) Wrist Strength Wrist Manual Muscle Testing Left Flexion (C7) 4+ Good+ Extension (C6) 4+ Good+ Right Flexion (C7) 4 Good Extension (C6) 4 Good PT-OP-Q Treatments Start: 08/22/20 08:57 Freq: Status: Active Protocol: Document 10/03/20 13:45 AMH (Rec: 10/03/20 16:22 AMH [email or web address]) Therapeutic Exercises Supine Exercises single knee to chest Reps/Minutes 1-2 reps holding 60 seconds wind shield wipers Reps/Minutes x 5 reps iliopsoas stretch Supine Exercise Name In john test position Reps/Minutes 60 seconds each side piriformis stretch Supine Exercise Name figure 4 position Side bilateral Reps/Minutes hold 60 sec hamstring stretch with strap Reps/Minutes hold 60 sec each side Manual Therapy Treatment Soft Tissue Mobilization piriformis release Body Location right piriormis Mobilization Type Instrument Assisted,Myofascial Release Intensity/Depth Moderate Body Position Sidelying manual QL release Body Location Right QL Mobilization Type Instrument Assisted,Myofascial Release Intensity/Depth Moderate Body Position Sidelying Comments pt in left sidelying suboccipital release Mobilization Type Myofascial Release,Sustained Pressure right sided scanele and upper trapezius release Body Location scalenes, SCM, and upper trapezius right side Mobilization Type Myofascial Release,Strumming, Sustained Pressure,Trigger Point Release PT-OP-R Modalities Start: 08/22/20 08:57 Freq: Status: Active Protocol: Document 08/24/20 12:59 AMH (Rec: 08/24/20 13:00 AMH [email or web address]) Ultrasound Therapy Treatment right upper trapezius Treatment Duration (minutes) 8 Patient Position Sidelying Coupling Medium Ultrasound Gel Applicator Size (cm2) 5 Mode Setting Continuous Duty Cycle 100% Intensity Setting (w/cm2) 1.5 PT-OP-T Assessment and Plan Start: 08/22/20 08:57 Freq: Status: Active Protocol: Document 10/03/20 13:45 AMH (Rec: 10/03/20 16:22 AMH [email or web address]) Physical Therapy Assessment Goals Decrease c/o LBP with golfing Impairment low back pain, right sacral pain with golfing 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 Goal (LTG) Lyndon is able to decrease his back pain enough to golf 18 holes on a golf course LTG Duration 8 weeks hip tightness right greater than left Impairment hip tightness Short Term Goal (STG) Lyndon is educated on stretches for the hips to help improve ROM and decrease strain to the sacrum STG Duration 4 weeks Decreased cervical spine ROM Mcc Goal (LTG) Pt is demonstrating improved cervical ROM without increased pain GOOD PROGRESS LTG Duration 8 weeks muscle guarding and spasm of the R>L scalenes, upper trapezius, SCM, pec minor Short Term Goal (STG) pt is given a Home stretching program to address tightness in the musculature of the cervical spine GOAL MET STG Duration 5 weeks decreased ability to drive due to moderate pain Mcc Goal (LTG) Pt is able to drive to [place] and back without increased c/ o pain SOME PROGRESS LTG Duration 8 weeks pain levels cervical spine 8/10 Impairment cervical spine pain levels 8/ 10 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 Goal (LTG) With PT techniques and stretches for home pt is able to decrease his pain levels to 2-3/10 or better. good progress LTG Duration 8 weeks Assessment Summary Assessment Pt reports overall his neck is improved. He loves to golf and this is aggravating his low back and he would like this included in his PT. With assessment of his low back today he is really tight in his hips R>L and his pain is located near the right sacral EZRA and piriformis attachments. He is also very tight in the Quadratus lumborum on the right. I started manual release for Haney today and he tolerated this well. I also added in stretches to begin opening up his hips to help decrease strain to the spine with his golf swing. He may benefit from golf swing assessement as well. Physical Therapy Plan Frequency and Duration Frequency of Treatment 2x/Week Duration of Treatment 8 Plan of Care Start Date 10/03/20 Plan of Care End Date 12/01/20 Therapeutic Interventions Therapeutic Interventions Home Exercise Program,Manual Therapy,Neuromuscular Re- education,Patient/Caregiver Education,Self-Care/Home Management,Soft Tissue Mobilization,Therapeutic Exercises
--- NOTE | 2020-10-03 16:24 | PT.OPPOC ---
Physical, Occupational & Speech Therapy At [facility] Current Diagnoses Other chronic pain (10/03/20) Cervicalgia (10/03/20) Low back pain (10/03/20) Visit Care Team Role Provider Type Pedro Mcbride MD Attending Provider Physician Primary Care Provider Referring Provider Specialty: Family Practice Address: [address] [place] [address], [facility] Email: [email or web address] Plan Of Care PT-OP-T Assessment and Plan Start: 08/22/20 08:57 Freq: Status: Active Protocol: Document 10/03/20 13:45 AMH (Rec: 10/03/20 16:22 AMH [email or web address]) Physical Therapy Assessment Goals Decrease c/o LBP with golfing Impairment low back pain, right sacral pain with golfing Thread Twister Goal (LTG) Lyndon is able to decrease his back pain enough to golf 18 holes on a golf course LTG Duration 8 weeks hip tightness right greater than left Impairment hip tightness Short Term Goal (STG) Lyndon is educated on stretches for the hips to help improve ROM and decrease strain to the sacrum STG Duration 4 weeks Decreased cervical spine ROM Thread Twister Goal (LTG) Pt is demonstrating improved cervical ROM without increased pain GOOD PROGRESS LTG Duration 8 weeks muscle guarding and spasm of the R>L scalenes, upper trapezius, SCM, pec minor Short Term Goal (STG) pt is given a Home stretching program to address tightness in the musculature of the cervical spine GOAL MET STG Duration 5 weeks decreased ability to drive due to moderate pain Thread Twister Goal (LTG) Pt is able to drive to [place] and [facility] without increased c/ o pain SOME PROGRESS LTG Duration 8 weeks pain levels cervical spine 8/10 Impairment cervical spine pain levels 8/ 10 Detention Goal (LTG) With PT techniques and stretches for home pt is able to decrease his pain levels to 2-3/10 or better. good progress LTG Duration 8 weeks Assessment Summary Assessment Pt reports overall his neck is improved. He loves to golf and this is aggravating his low back and he would like this included in his PT. With assessment of his low back today he is really tight in his hips R>L and his pain is located near the right sacral EZRA and pirifmormis attachments. He is also very tight in the Quadratus lumborum on the right. I started manual release for Haney today and he tolerated this well. I also added in stretches to begin opening up his hips to help decrease strain to the spine with his golf swing. He may benefit from golf swing assessment as well. Physical Therapy Plan Frequency and Duration Frequency of Treatment 2x/Week Duration of Treatment 8 Plan of Care Start Date 10/03/20 Plan of Care End Date 12/01/20 Therapeutic Interventions Therapeutic Interventions Home Exercise Program,Manual Therapy,Neuromuscular Re- education,Patient/Caregiver Education,Self-Care/Home Management,Soft Tissue Mobilization,Therapeutic Exercises Plan of Care Dates Plan of Care Start Date 10/03/20 Plan of Care End Date 12/01/20 Electronically Signed by: Cristiana Anderson, PT 10/03/20 0296 Please Sign and Return: I have reviewed this Plan of Care and certify that the skilled therapy services above are required to meet the patient?s needs. Physician Signature Date Printed Name and Credentials Clinical Instructor Signature Printed Name and Credentials
--- NOTE | 2020-10-05 16:26 | PT.OTN ---
Current Diagnoses Other chronic pain (10/05/20) Cervicalgia (10/05/20) Low back pain (10/05/20) Physical Therapy Treatment Note PT-OP-A Visit Information Start: 08/22/20 08:57 Freq: Status: Active Protocol: Document 10/05/20 09:02 [facility] (Rec: 10/05/20 09:22 [facility] [id number]) Out-Patient Physical Therapy Visit Information Visit Information Visit Type Treatment Note Visit Start Time 09:00 Visit Stop Time 09:45 Total Visit Minutes 45 Visit Number 8 Number of TECHNICAL PUBLICATIONS MANAGER Visits 0 PT-OP-B Current Condition Start: 08/22/20 08:57 Freq: Status: Active Protocol: Document 08/22/20 09:01 [facility] (Rec: 08/22/20 09:13 [facility] [id number]) Current Condition History of Current Condition History of Current Condition history of chronic neck pain, right sided pain, pain goes down to the upper trapezius, pain is always there. Getting MRI as he has problems with numbness in his hands. He has to lay down to weight of his back. Laying down is the only thing that helps take the weight off his back. 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 Plays the [employer], right handed. Future Testing and Treatments Planned pt is sidebend right, herniated disc in the low back , did cortisone injection as he had sciatica on the left side, the injection helped but now he will have pain on the right side Treatment Goals Patient/Caregiver Goals Goals include avoiding surgery , pain management to be able to live with the pain comfortably and not be as limited as what he does. He wants to be able to kayak or canoe but feels he would pay the brito. PT-OP-C Subjective Start: 08/22/20 08:57 Freq: Status: Active Protocol: Document 10/05/20 09:00 [facility] (Rec: 10/05/20 16:16 [facility] [email or web address]) OP-PT Subjective Patient Comments Patient Comments pt reports he did get some relief by working on the lower right back and SI joint region last visit, he is working on his stretches at home. He golfed on friday and this aggravates his back and lower right SI joint, his cervcial spine pain has reduced overall but he can get tight still expecially following golfing Patient Reported Progress Improving PT-OP-F Manual Assessment Start: 08/22/20 08:57 Freq: Status: Active Protocol: Document 08/22/20 09:00 [facility] (Rec: 08/23/20 14:01 [facility] [email or web address]) Manual Assessments Soft Tissue Assessment Soft Tissue Mobility Assessment tightness in the right scaneles, upper trapezius, SCM , pec minor Joint Mobility Assessment Joint Mobility Assessment decreased upper cervcial flexion PT-OP-J Posture/Palpation/Skin Start: 08/22/20 08:57 Freq: Status: Active Protocol: Document 10/03/20 16:22 [facility] (Rec: 10/03/20 16:24 [facility] [email or web address]) Palpation Assessment Location quadratus lumborum R Palpation Findings Soft Tissue Tightness,Muscle Guarding,Tenderness right piriformis Palpation Findings Soft Tissue Tightness,Spasm, Muscle Guarding right sacral ILB Palpation Findings Tenderness Palpation Details spasm of the piriformis attachments to the sacrum PT-OP-K Range of Motion Start: 08/22/20 08:57 Freq: Status: Active Protocol: Document 10/03/20 16:22 [facility] (Rec: 10/03/20 16:24 [facility] [email or web address]) Lumbar Spine Range of Motion Lumbar Spine Active Testing Position Standing Flexion 50 ROM Limitations Soft Tissue Tightness Hip Goniometric Range of Motion Hip ROM Limitations Hip ROM Limitations Soft Tissue Tightness Comments + john test Right SLR 45 R 60 L hip flexion limited to 100 degrees right 120 Left PT-OP-L Special Tests Start: 08/22/20 08:57 Freq: Status: Active Protocol: Document 08/22/20 09:00 [facility] (Rec: 08/24/20 12:52 [facility] [email or web address]) Special Tests Cervical Spine Special Tests Upper Limb Tension Test Test Results + B Comments median nerve bias PT-OP-M Strength Start: 08/22/20 08:57 Freq: Status: Active Protocol: Document 08/22/20 09:00 [facility] (Rec: 08/23/20 14:02 [facility] [email or web address]) Wrist Strength Wrist Manual Muscle Testing Left Flexion (C7) 4+ Good+ Extension (C6) 4+ Good+ Right Flexion (C7) 4 Good Extension (C6) 4 Good PT-OP-Q Treatments Start: 08/22/20 08:57 Freq: Status: Active Protocol: Document 10/05/20 09:02 [facility] (Rec: 10/05/20 09:22 [facility] [id number]) Therapeutic Exercises Supine Exercises single knee to chest Reps/Minutes 1-2 reps holding 60 seconds wind shield wipers Reps/Minutes x 5 reps iliopsoas stretch Supine Exercise Name In john test position Reps/Minutes 60 seconds each side piriformis stretch Supine Exercise Name figure 4 position Side bilateral Reps/Minutes hold 60 sec Comments pt needs help holding his leg up, advised him to use his couch to prop foot hamstring stretch with strap Reps/Minutes hold 60 sec each side supine chin tucks Reps/Minutes x 10 reps Sitting Exercises seated scalene stretches Reps/Minutes 2 reps holding 30 seconds each Manual Therapy Treatment Soft Tissue Mobilization piriformis release Mobilization Type Instrument Assisted,Myofascial Release Intensity/Depth Moderate Body Position Prone Comments pt was positioned prone over the body pillow, gusha was used along with MFR for piriformis release Manual Techniques sacral counter nutation MET Type MET Body Location sacrum Body Position Prone Comments very stiff sacral joint, with breathing I was able to counternutate the sacrum a bit . PT-OP-R Modalities Start: 08/22/20 08:57 Freq: Status: Active Protocol: Document 08/24/20 12:59 [facility] (Rec: 08/24/20 13:00 [facility] [email or web address]) Ultrasound Therapy Treatment right upper trapezius Treatment Duration (minutes) 8 Patient Position Sidelying Coupling Medium Ultrasound Gel Applicator Size (cm2) 5 Mode Setting Continuous Duty Cycle 100% Intensity Setting (w/cm2) 1.5 PT-OP-T Assessment and Plan Start: 08/22/20 08:57 Freq: Status: Active Protocol: Document 10/05/20 09:00 [facility] (Rec: 10/05/20 16:26 [facility] [email or web address]) Physical Therapy Assessment Assessment Summary Assessment Treatment for Lyndon now includes the right lower lumbar spine, piriformis and SI joint. He is doing better with his neck overall. Golfing is the biggest contributer to his pain. Treatment is focusing on hip mobility to decrease strain to the back with golf. I have't added in stabilization exercises but Lyndon would benefit from starting some core stabilization. His biggest area of pain is the right sacral EZRA and piriformis attachments. I have used the Gusha to help with release in this region. Physical Therapy Plan Frequency and Duration Frequency of Treatment 2x/Week Duration of Treatment 8 Plan of Care Start Date 10/03/20 Plan of Care End Date 12/01/20 Therapeutic Interventions Therapeutic Interventions Home Exercise Program,Manual Therapy,Neuromuscular Re- education,Patient/Caregiver Education,Self-Care/Home Management,Soft Tissue Mobilization,Therapeutic Exercises Next Visit Focus/Plan Next Note Type Treatment Note Next Visit Plan begin lumbar and SI stabilization next visit , continue working on opening up the hips and piriformis release with manual therapy techniques
--- NOTE | 2020-10-09 09:48 | PT.OTN ---
Current Diagnoses Other chronic pain (10/09/20) Cervicalgia (10/09/20) Low back pain (10/09/20) Physical Therapy Treatment Note PT-OP-A Visit Information Start: 08/22/20 08:57 Freq: Status: Active Protocol: Document 10/09/20 09:05 [facility] (Rec: 10/09/20 11:41 [facility] [id number]) Out-Patient Physical Therapy Visit Information Visit Information Visit Type Treatment Note Visit Start Time 09:05 Visit Stop Time 09:48 Total Visit Minutes 43 Visit Number 9 Number of LABORER DEMOLITION Visits 1 Evaluation Information Evaluation Date 08/22/20 PT-OP-B Current Condition Start: 08/22/20 08:57 Freq: Status: Active Protocol: Document 08/22/20 09:01 [facility] (Rec: 08/22/20 09:13 [facility] [id number]) Current Condition History of Current Condition History of Current Condition history of chronic neck pain, right sided pain, pain goes down to the upper trapezius, pain is always there. Getting MRI as he has problems with numbness in his hands. He has to lay down to weight of his back. Laying down is the only thing that helps take the weight off his back. 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 Plays the guitar, right handed. Future Testing and Treatments Planned pt is sidebend right, herniated disc in the low back , did cortisone injection as he had sciatica on the left side, the injection helped but now he will have pain on the right side Treatment Goals Patient/Caregiver Goals Goals include avoiding surgery , pain management to be able to live with the pain comfortably and not be as limited as what he does. He wants to be able to kayak or canoe but feels he would pay the brito. PT-OP-C Subjective Start: 08/22/20 08:57 Freq: Status: Active Protocol: Document 10/09/20 09:05 [facility] (Rec: 10/09/20 11:41 [facility] [id number]) OP-PT Subjective Patient Comments Patient Comments Pt stated neck stiff today and LB better since last tx, compliant with stretching learned. Pt stated will be seeing another PT for golf assessment, covered by insurance. Patient Reported Progress Improving PT-OP-F Manual Assessment Start: 08/22/20 08:57 Freq: Status: Active Protocol: Document 08/22/20 09:00 [facility] (Rec: 08/23/20 14:01 [facility] [email or web address]) Manual Assessments Soft Tissue Assessment Soft Tissue Mobility Assessment tightness in the right scaneles, upper trapezius, SCM , pec minor Joint Mobility Assessment Joint Mobility Assessment decreased upper cervcial flexion PT-OP-J Posture/Palpation/Skin Start: 08/22/20 08:57 Freq: Status: Active Protocol: Document 10/03/20 16:22 [facility] (Rec: 10/03/20 16:24 [facility] [email or web address]) Palpation Assessment Location quadratus lumborum R Palpation Findings Soft Tissue Tightness,Muscle Guarding,Tenderness right piriformis Palpation Findings Soft Tissue Tightness,Spasm, Muscle Guarding right sacral ILB Palpation Findings Tenderness Palpation Details spasm of the piriformis attachments to the sacrum PT-OP-K Range of Motion Start: 08/22/20 08:57 Freq: Status: Active Protocol: Document 10/03/20 16:22 [facility] (Rec: 10/03/20 16:24 [facility] [email or web address]) Lumbar Spine Range of Motion Lumbar Spine Active Testing Position Standing Flexion 50 ROM Limitations Soft Tissue Tightness Hip Goniometric Range of Motion Hip ROM Limitations Hip ROM Limitations Soft Tissue Tightness Comments + john test Right SLR 45 R 60 L hip flexion limited to 100 degrees right 120 Left PT-OP-L Special Tests Start: 08/22/20 08:57 Freq: Status: Active Protocol: Document 08/22/20 09:00 [facility] (Rec: 08/24/20 12:52 [facility] [email or web address]) Special Tests Cervical Spine Special Tests Upper Limb Tension Test Test Results + B Comments median nerve bias PT-OP-M Strength Start: 08/22/20 08:57 Freq: Status: Active Protocol: Document 08/22/20 09:00 [facility] (Rec: 08/23/20 14:02 [facility] [email or web address]) Wrist Strength Wrist Manual Muscle Testing Left Flexion (C7) 4+ Good+ Extension (C6) 4+ Good+ Right Flexion (C7) 4 Good Extension (C6) 4 Good PT-OP-Q Treatments Start: 08/22/20 08:57 Freq: Status: Active Protocol: Document 10/09/20 09:05 [facility] (Rec: 10/09/20 11:41 [facility] [id number]) Therapeutic Exercises Supine Exercises clamshell Supine Exercise Name together ( added to HEP) Side bilateral Reps/Minutes 2x10 reps Comments cued slow controlled eccentric pacing- muscle work not pain wind shield wipers Reps/Minutes x 5 reps piriformis stretch Supine Exercise Name figure 4 position Side bilateral Reps/Minutes hold 60 sec Comments pt needs help holding his leg up, advised him to use his couch to prop foot supine chin tucks Supine Exercise Name CS neutral and end range rotation Reps/Minutes x 10 reps Standing Exercises self STMs Standing Exercise Name tennis ball wall, theracane Reps/Minutes 4 min Comments good feedback over UT, interscap, paraspinals, gluts Manual Therapy Treatment Soft Tissue Mobilization piriformis release Mobilization Type Instrument Assisted,Myofascial Release Intensity/Depth Moderate Body Position Prone Comments pt was positioned prone over the body pillow, sustained pressure MWM hip abd and MFR for piriformis release suboccipital release Mobilization Type Myofascial Release,Sustained Pressure Comments manual sustained pressure cervical flex/ ext nods, then cervical rotation MWM w/ head not post right sided scanele and upper trapezius release Body Location scalenes, SCM, and upper trapezius right side Mobilization Type Myofascial Release,Strumming, Sustained Pressure,Trigger Point Release Comments manual and self application pincer pressure head nod/ turn . PT-OP-R Modalities Start: 08/22/20 08:57 Freq: Status: Active Protocol: Document 08/24/20 12:59 [facility] (Rec: 08/24/20 13:00 [facility] [email or web address]) Ultrasound Therapy Treatment right upper trapezius Treatment Duration (minutes) 8 Patient Position Sidelying Coupling Medium Ultrasound Gel Applicator Size (cm2) 5 Mode Setting Continuous Duty Cycle 100% Intensity Setting (w/cm2) 1.5 PT-OP-T Assessment and Plan Start: 08/22/20 08:57 Freq: Status: Active Protocol: Document 10/09/20 09:05 [facility] (Rec: 10/09/20 11:41 [facility] [id number]) Physical Therapy Assessment Goals Decrease c/o LBP with golfing Impairment low back pain, right sacral pain with golfing Care Home Goal (LTG) Lyndon is able to decrease his back pain enough to golf 18 holes on a golf course LTG Duration 8 weeks hip tightness right greater than left Impairment hip tightness Short Term Goal (STG) Haney is educated on stretches for the hips to help improve ROM and decrease strain to the sacrum STG Duration 4 weeks Decreased cervical spine ROM Care Home Goal (LTG) Pt is demonstrating improved cervical ROM without increased pain GOOD PROGRESS LTG Duration 8 weeks muscle guarding and spasm of the R>L scalenes, upper trapezius, SCM, pec minor Short Term Goal (STG) pt is given a Home stretching program to address tightness in the musculature of the cervical spine GOAL MET STG Duration 5 weeks decreased ability to drive due to moderate pain File Clerk Data Entry Goal (LTG) Pt is able to drive to [place] and back without increased c/ o pain SOME PROGRESS LTG Duration 8 weeks pain levels cervical spine 8/10 Impairment cervical spine pain levels 8/ 10 Care Home Goal (LTG) With PT techniques and stretches for home pt is able to decrease his pain levels to 2-3/10 or better. good progress LTG Duration 8 weeks Assessment Summary Assessment Pt responded well to manual and HEP review. Intiated hip abd facilitation against resistance with no adverse affects some muscle work without pain low reps for assessment of tolerance education muscle facilitation not pain/discomfort. Introduced self STMs ball on wall over low body and theracane neck and scap complex MWM good response for home. Ended with wall posture awareness for self feedback to aligment during mobility. Physical Therapy Plan Frequency and Duration Frequency of Treatment 2x/Week Duration of Treatment 8 Plan of Care Start Date 10/03/20 Plan of Care End Date 12/01/20 Therapeutic Interventions Therapeutic Interventions Home Exercise Program,Manual Therapy,Neuromuscular Re- education,Patient/Caregiver Education,Self-Care/Home Management,Soft Tissue Mobilization,Therapeutic Exercises Next Visit Focus/Plan Next Note Type Treatment Note Next Visit Plan POC: begin lumbar and SI stabilization and recheck posture next visit , continue working on opening up the hips and piriformis release with manual therapy techniques. check posture in various positions.
--- NOTE | 2020-10-20 13:45 | PT.OTN ---
Current Diagnoses Other chronic pain (10/24/20) Cervicalgia (10/24/20) Low back pain (10/24/20) Physical Therapy Treatment Note PT-OP-A Visit Information Start: 08/22/20 08:57 Freq: Status: Active Protocol: Document 10/24/20 13:00 [facility] (Rec: 10/19/20 13:03 [facility] [id number]) Out-Patient Physical Therapy Visit Information Visit Information Visit Type Treatment Note Visit Start Time 13:00 Visit Stop Time 13:45 Total Visit Minutes 45 Visit Number 10 Number of GENERAL LOT ATTENDANT Visits 0 PT-OP-B Current Condition Start: 08/22/20 08:57 Freq: Status: Active Protocol: Document 08/22/20 09:01 [facility] (Rec: 08/22/20 09:13 [facility] [id number]) Current Condition History of Current Condition History of Current Condition history of chronic neck pain, right sided pain, pain goes down to the upper trapezius, pain is always there. Getting MRI as he has problems with numbness in his hands. He has to lay down to weight of his back. Laying down is the only thing that helps take the weight off his back. 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 Plays the [employer], right handed. Future Testing and Treatments Planned pt is sidebend right, herniated disc in the low back , did cortisone injection as he had sciatica on the left side, the injection helped but now he will have pain on the right side Treatment Goals Patient/Caregiver Goals Goals include avoiding surgery , pain management to be able to live with the pain comfortably and not be as limited as what he does. He wants to be able to kayak or canoe but feels he would pay the brito. PT-OP-C Subjective Start: 08/22/20 08:57 Freq: Status: Active Protocol: Document 10/24/20 13:00 [facility] (Rec: 10/19/20 13:03 [facility] [id number]) OP-PT Subjective Patient Comments Patient Comments pt reports he has had a lot of headaches this past week and wants to focus on his neck today. He did have a nerve conduction study last week. PT-OP-F Manual Assessment Start: 08/22/20 08:57 Freq: Status: Active Protocol: Document 08/22/20 09:00 [facility] (Rec: 08/23/20 14:01 [facility] [email or web address]) Manual Assessments Soft Tissue Assessment Soft Tissue Mobility Assessment tightness in the right scaneles, upper trapezius, SCM , pec minor Joint Mobility Assessment Joint Mobility Assessment decreased upper cervcial flexion PT-OP-J Posture/Palpation/Skin Start: 08/22/20 08:57 Freq: Status: Active Protocol: Document 10/03/20 16:22 [facility] (Rec: 10/03/20 16:24 [facility] [email or web address]) Palpation Assessment Location quadratus lumborum R Palpation Findings Soft Tissue Tightness,Muscle Guarding,Tenderness right piriformis Palpation Findings Soft Tissue Tightness,Spasm, Muscle Guarding right sacral ILB Palpation Findings Tenderness Palpation Details spasm of the piriformis attachments to the sacrum PT-OP-K Range of Motion Start: 08/22/20 08:57 Freq: Status: Active Protocol: Document 10/03/20 16:22 [facility] (Rec: 10/03/20 16:24 [facility] [email or web address]) Lumbar Spine Range of Motion Lumbar Spine Active Testing Position Standing Flexion 50 ROM Limitations Soft Tissue Tightness Hip Goniometric Range of Motion Hip ROM Limitations Hip ROM Limitations Soft Tissue Tightness Comments + john test Right SLR 45 R 60 L hip flexion limited to 100 degrees right 120 Left PT-OP-L Special Tests Start: 08/22/20 08:57 Freq: Status: Active Protocol: Document 08/22/20 09:00 [facility] (Rec: 08/24/20 12:52 [facility] [email or web address]) Special Tests Cervical Spine Special Tests Upper Limb Tension Test Test Results + B Comments median nerve bias PT-OP-M Strength Start: 08/22/20 08:57 Freq: Status: Active Protocol: Document 08/22/20 09:00 [facility] (Rec: 08/23/20 14:02 [facility] [email or web address]) Wrist Strength Wrist Manual Muscle Testing Left Flexion (C7) 4+ Good+ Extension (C6) 4+ Good+ Right Flexion (C7) 4 Good Extension (C6) 4 Good PT-OP-Q Treatments Start: 08/22/20 08:57 Freq: Status: Active Protocol: Document 10/24/20 13:00 [facility] (Rec: 10/24/20 10:23 [facility] [id number]) Manual Therapy Treatment Soft Tissue Mobilization sidelying scapular mobilizations with manual pec minor stretch Body Position left sidelying pec minor release Body Position Supine suboccipital release Mobilization Type Myofascial Release,Sustained Pressure Comments manual sustained pressure cervical flex/ ext nods, then cervical rotation MWM w/ head not post right sided scanele and upper trapezius release Body Location scalenes, SCM, and upper trapezius right side Mobilization Type Myofascial Release,Strumming, Sustained Pressure,Trigger Point Release Comments manual and self application pincer pressure head nod/ turn . PT-OP-R Modalities Start: 08/22/20 08:57 Freq: Status: Active Protocol: Document 08/24/20 12:59 [facility] (Rec: 08/24/20 13:00 [facility] [email or web address]) Ultrasound Therapy Treatment right upper trapezius Treatment Duration (minutes) 8 Patient Position Sidelying Coupling Medium Ultrasound Gel Applicator Size (cm2) 5 Mode Setting Continuous Duty Cycle 100% Intensity Setting (w/cm2) 1.5 PT-OP-T Assessment and Plan Start: 08/22/20 08:57 Freq: Status: Active Protocol: Document 10/24/20 13:00 [facility] (Rec: 10/24/20 10:23 [facility] [id number]) Physical Therapy Assessment Assessment Summary Assessment pt responding well to manual treatment, we reviewed his neck stretches for home. His right SCM was actually tighter today then the left. Physical Therapy Plan Frequency and Duration Frequency of Treatment 2x/Week Duration of Treatment 8 Plan of Care Start Date 10/03/20 Plan of Care End Date 12/01/20 Next Visit Focus/Plan Next Note Type Treatment Note Next Visit Plan continue progressing stretches , median nerve glides and manual therapy work
--- NOTE | 2020-10-24 09:52 | PT.OTN ---
Current Diagnoses Other chronic pain (10/24/20) Cervicalgia (10/24/20) Low back pain (10/24/20) Physical Therapy Treatment Note PT-OP-A Visit Information Start: 08/22/20 08:57 Freq: Status: Active Protocol: Document 10/24/20 09:07 SP (Rec: 10/24/20 10:15 SP [id number]) Out-Patient Physical Therapy Visit Information Visit Information Visit Type Treatment Note Visit Start Time 09:07 Visit Stop Time 09:52 Total Visit Minutes 45 Visit Number 11 Number of DIRECTOR DATA PROCESSING Visits 1 Evaluation Information Evaluation Date 08/22/20 PT-OP-B Current Condition Start: 08/22/20 08:57 Freq: Status: Active Protocol: Document 08/22/20 09:01 [facility] (Rec: 08/22/20 09:13 [facility] [id number]) Current Condition History of Current Condition History of Current Condition history of chronic neck pain, right sided pain, pain goes down to the upper trapezius, pain is always there. Getting MRI as he has problems with numbness in his hands. He has to lay down to weight of his back. Laying down is the only thing that helps take the weight off his back. 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 Plays the guitar, right handed. Future Testing and Treatments Planned pt is sidebend right, herniated disc in the low back , did cortisone injection as he had sciatica on the left side, the injection helped but now he will have pain on the right side Treatment Goals Patient/Caregiver Goals Goals include avoiding surgery , pain management to be able to live with the pain comfortably and not be as limited as what he does. He wants to be able to kayak or canoe but feels he would pay the brito. PT-OP-C Subjective Start: 08/22/20 08:57 Freq: Status: Active Protocol: Document 10/24/20 09:07 SP (Rec: 10/24/20 10:15 SP [id number]) OP-PT Subjective Patient Comments Patient Comments Pt reported wanting to focus on R side of neck and R low back/ buttocks today. Having more tingling in R hand today and R hip hurting. PT-OP-F Manual Assessment Start: 08/22/20 08:57 Freq: Status: Active Protocol: Document 08/22/20 09:00 [facility] (Rec: 08/23/20 14:01 AMH [email or web address]) Manual Assessments Soft Tissue Assessment Soft Tissue Mobility Assessment tightness in the right scaneles, upper trapezius, SCM , pec minor Joint Mobility Assessment Joint Mobility Assessment decreased upper cervcial flexion PT-OP-J Posture/Palpation/Skin Start: 08/22/20 08:57 Freq: Status: Active Protocol: Document 10/03/20 16:22 AMH (Rec: 10/03/20 16:24 AMH [email or web address]) Palpation Assessment Location quadratus lumborum R Palpation Findings Soft Tissue Tightness,Muscle Guarding,Tenderness right piriformis Palpation Findings Soft Tissue Tightness,Spasm, Muscle Guarding right sacral ILB Palpation Findings Tenderness Palpation Details spasm of the piriformis attachments to the sacrum PT-OP-K Range of Motion Start: 08/22/20 08:57 Freq: Status: Active Protocol: Document 10/03/20 16:22 AM[facility] (Rec: 10/03/20 16:24 [facility] [email or web address]) Lumbar Spine Range of Motion Lumbar Spine Active Testing Position Standing Flexion 50 ROM Limitations Soft Tissue Tightness Hip Goniometric Range of Motion Hip ROM Limitations Hip ROM Limitations Soft Tissue Tightness Comments + john test Right SLR 45 R 60 L hip flexion limited to 100 degrees right 120 Left PT-OP-L Special Tests Start: 08/22/20 08:57 Freq: Status: Active Protocol: Document 08/22/20 09:00 AMH (Rec: 08/24/20 12:52 AM[facility] [email or web address]) Special Tests Cervical Spine Special Tests Upper Limb Tension Test Test Results + B Comments median nerve bias PT-OP-M Strength Start: 08/22/20 08:57 Freq: Status: Active Protocol: Document 08/22/20 09:00 AM[facility] (Rec: 08/23/20 14:02 [facility] [email or web address]) Wrist Strength Wrist Manual Muscle Testing Left Flexion (C7) 4+ Good+ Extension (C6) 4+ Good+ Right Flexion (C7) 4 Good Extension (C6) 4 Good PT-OP-Q Treatments Start: 08/22/20 08:57 Freq: Status: Active Protocol: Document 10/24/20 09:07 SP (Rec: 10/24/20 10:15 SP [id number]) Therapeutic Exercises Supine Exercises iliopsoas stretch Supine Exercise Name In john test position Reps/Minutes 60 seconds each side piriformis stretch Supine Exercise Name figure 4 position Side bilateral Reps/Minutes hold 60 sec Comments pt needs help holding his leg up, advised him to use his couch to prop foot hamstring stretch with strap Side right Reps/Minutes hold 30 sec each Comments cued TA PPT awareness anterior chest stretch on foam roll Supine Exercise Name supine on table Reps/Minutes 1 minutes Comments states performs on foam roller at home supine chin tucks Supine Exercise Name CS neutral and end range rotation nods MWM Side bilateral Reps/Minutes x3 Prone Exercises scap retraction, arm and head/CS ext lift Prone Exercise Name Reviewed personal HEP performed from chiropractor in past Side bilateral Resistance AROM Reps/Minutes 5 sec x5 total Comments scap/ UE x3 reps then unweight head from rolled towel x2 reps Standing Exercises self STMs Standing Exercise Name tennis ball supine over glut/ piriformis Resistance sustained pressure then hip abd/ heel slide MWM Reps/Minutes 3 min Comments good feedback Manual Therapy Treatment Soft Tissue Mobilization piriformis release Body Location R Mobilization Type Instrument Assisted,Myofascial Release Intensity/Depth Moderate Body Position Sidelying Comments manual and supine on table instruction self STMs tennis vs racquetball sustained pressure supine MWM heel slide , hip abd manual QL release Body Location Right QL Mobilization Type Instrument Assisted,Myofascial Release Intensity/Depth Moderate Body Position Sidelying Comments pt in left sidelying pillows between BLEs pec minor release Body Position Supine suboccipital release Mobilization Type Myofascial Release,Sustained Pressure Comments manual sustained pressure cervical flex/ ext nods, then cervical rotation MWM w/ head not post right sided scanele and upper trapezius release Body Location scalenes, SCM, and upper trapezius right side Mobilization Type Myofascial Release,Strumming, Sustained Pressure,Trigger Point Release Intensity/Depth Moderate Body Position Supine Comments manual and self application pincer pressure/ knead SCM then CS rotation w/ head nods. Manual Traction Cervical Details Cervical traction Body Position Supine Comments manual, then manual stretches R and L SB and rotation. Manual Techniques median nerve glides Type R Body Position Supine Comments manual, states performs self when needed. PT-OP-R Modalities Start: 08/22/20 08:57 Freq: Status: Active Protocol: Document 08/24/20 12:59 [facility] (Rec: 08/24/20 13:00 AM[facility] [email or web address]) Ultrasound Therapy Treatment right upper trapezius Treatment Duration (minutes) 8 Patient Position Sidelying Coupling Medium Ultrasound Gel Applicator Size (cm2) 5 Mode Setting Continuous Duty Cycle 100% Intensity Setting (w/cm2) 1.5 PT-OP-T Assessment and Plan Start: 08/22/20 08:57 Freq: Status: Active Protocol: Document 10/24/20 09:07 SP (Rec: 10/24/20 10:15 SP [id number]) Physical Therapy Assessment Goals Decrease c/o LBP with golfing Impairment low back pain, right sacral pain with golfing Master Rigger Goal (LTG) Lyndon is able to decrease his back pain enough to golf 18 holes on a golf course LTG Duration 8 weeks hip tightness right greater than left Impairment hip tightness Short Term Goal (STG) Lyndon is educated on stretches for the hips to help improve ROM and decrease strain to the sacrum STG Duration 4 weeks Decreased cervical spine ROM Penitentiary Goal (LTG) Pt is demonstrating improved cervical ROM without increased pain GOOD PROGRESS LTG Duration 8 weeks muscle guarding and spasm of the R>L scalenes, upper trapezius, SCM, pec minor Short Term Goal (STG) pt is given a Home stretching program to address tightness in the musculature of the cervical spine GOAL MET STG Duration 5 weeks decreased ability to drive due to moderate pain Master Rigger Goal (LTG) Pt is able to drive to [place] and back without increased c/ o pain SOME PROGRESS LTG Duration 8 weeks pain levels cervical spine 8/10 Impairment cervical spine pain levels 8/ 10 Master Rigger Goal (LTG) With PT techniques and stretches for home pt is able to decrease his pain levels to 2-3/10 or better. good progress LTG Duration 8 weeks Assessment Summary Assessment Pt responded well to more flexibility tx this day incorporating manual and review stretching to improve mobility. Reviewed postural awareness HEP: chin tucks/head nods w/ cervical rotation, pec stretch, LE flexibility stretching and self performance of personal exercise prone TS ext (scap retraction/ arm lift then added CS ext lift with chin tuck alignment with cues for TA awareness to over recruit LS ext good feedback results. Instructed tennis ball use sustained pressure supine over tennis ball on R pirformis, posterior glut med vs at wall not feeling as good results. Pt states will go get a tennis ball today, was helpful for self application. Physical Therapy Plan Frequency and Duration Frequency of Treatment 2x/Week Duration of Treatment 8 Plan of Care Start Date 10/03/20 Plan of Care End Date 12/01/20 Therapeutic Interventions Therapeutic Interventions Home Exercise Program,Manual Therapy,Neuromuscular Re- education,Patient/Caregiver Education,Self-Care/Home Management,Soft Tissue Mobilization,Therapeutic Exercises Next Visit Focus/Plan Next Note Type Treatment Note Next Visit Plan Assess response to manual STMs and self application/ Med nerve glide, review self stretching HEP and prone ext. POC: begin lumbar and SI stabilization and recheck posture next visit , continue working on opening up the hips and piriformis release with manual therapy techniques. check posture in various positions.
--- NOTE | 2020-11-02 16:22 | PT.OTN ---
Current Diagnoses Other chronic pain (11/02/20) Cervicalgia (11/02/20) Low back pain (11/02/20) Physical Therapy Treatment Note PT-OP-A Visit Information Start: 08/22/20 08:57 Freq: Status: Active Protocol: Document 11/02/20 14:30 [facility]H (Rec: 11/02/20 14:29 AMH [id number]) Out-Patient Physical Therapy Visit Information Visit Information Visit Type Treatment Note Visit Start Time 14:30 Visit Stop Time 15:15 Total Visit Minutes 45 Visit Number 12 Number of MOLDER MEAT Visits 0 PT-OP-B Current Condition Start: 08/22/20 08:57 Freq: Status: Active Protocol: Document 08/22/20 09:01 AMH (Rec: 08/22/20 09:13 AMH [id number]) Current Condition History of Current Condition History of Current Condition history of chronic neck pain, right sided pain, pain goes down to the upper trapezius, pain is always there. Getting MRI as he has problems with numbness in his hands. He has to lay down to weight of his back. Laying down is the only thing that helps take the weight off his back. 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 Plays the the[employer], right handed. Future Testing and Treatments Planned pt is sidebend right, herniated disc in the low back , did cortisone injection as he had sciatica on the left side, the injection helped but now he will have pain on the right side Treatment Goals Patient/Caregiver Goals Goals include avoiding surgery , pain management to be able to live with the pain comfortably and not be as limited as what he does. He wants to be able to kayak or canoe but feels he would pay the brito. PT-OP-C Subjective Start: 08/22/20 08:57 Freq: Status: Active Protocol: Document 11/02/20 14:30 AMH (Rec: 11/02/20 16:06 AMH [id number]) OP-PT Subjective Patient Comments Patient Comments pt notes he has been doing better, he has been trying to walk more and has been doing his stretches. Patient Reported Progress Improving PT-OP-F Manual Assessment Start: 08/22/20 08:57 Freq: Status: Active Protocol: Document 08/22/20 09:00 AMH (Rec: 08/23/20 14:01 AMH [email or web address]) Manual Assessments Soft Tissue Assessment Soft Tissue Mobility Assessment tightness in the right scaneles, upper trapezius, SCM , pec minor Joint Mobility Assessment Joint Mobility Assessment decreased upper cervcial flexion PT-OP-J Posture/Palpation/Skin Start: 08/22/20 08:57 Freq: Status: Active Protocol: Document 10/03/20 16:22 AMH (Rec: 10/03/20 16:24 AMH [email or web address]) Palpation Assessment Location quadratus lumborum R Palpation Findings Soft Tissue Tightness,Muscle Guarding,Tenderness right piriformis Palpation Findings Soft Tissue Tightness,Spasm, Muscle Guarding right sacral ILB Palpation Findings Tenderness Palpation Details spasm of the piriformis attachments to the sacrum PT-OP-K Range of Motion Start: 08/22/20 08:57 Freq: Status: Active Protocol: Document 10/03/20 16:22 AMH (Rec: 10/03/20 16:24 AMH [email or web address]) Lumbar Spine Range of Motion Lumbar Spine Active Testing Position Standing Flexion 50 ROM Limitations Soft Tissue Tightness Hip Goniometric Range of Motion Hip ROM Limitations Hip ROM Limitations Soft Tissue Tightness Comments + john test Right SLR 45 R 60 L hip flexion limited to 100 degrees right 120 Left PT-OP-L Special Tests Start: 08/22/20 08:57 Freq: Status: Active Protocol: Document 08/22/20 09:00 AMH (Rec: 08/24/20 12:52 AMH [email or web address]) Special Tests Cervical Spine Special Tests Upper Limb Tension Test Test Results + B Comments median nerve bias PT-OP-M Strength Start: 08/22/20 08:57 Freq: Status: Active Protocol: Document 08/22/20 09:00 AM[facility] (Rec: 08/23/20 14:02 AMH [email or web address]) Wrist Strength Wrist Manual Muscle Testing Left Flexion (C7) 4+ Good+ Extension (C6) 4+ Good+ Right Flexion (C7) 4 Good Extension (C6) 4 Good PT-OP-Q Treatments Start: 08/22/20 08:57 Freq: Status: Active Protocol: Document 11/02/20 14:30 AMH (Rec: 11/02/20 16:06 AMH [id number]) Therapeutic Exercises Supine Exercises single knee to chest Reps/Minutes 1-2 reps holding 60 seconds wind shield wipers Reps/Minutes x 10 reps iliopsoas stretch Supine Exercise Name In john test position Reps/Minutes 60 seconds each side Comments pt unable to do this one at home so he was shown 1/2 kneeling piriformis stretch Supine Exercise Name figure 4 position Side bilateral Reps/Minutes hold 60 sec Comments pt needs help holding his leg up, advised him to use his couch to prop foot Sitting Exercises seated scalene stretches Reps/Minutes 2 reps holding 30 seconds each Comments added hands crossed over the chest to help stretch the anterior fascia Other Exercises 1/2 hip flexor stretch Other Exercise Name 1/2 kneeling hip flexor stretch Reps/Minutes 1 rep each side holding 60 seconds Comments pillow under the knee Manual Therapy Treatment Soft Tissue Mobilization manual QL release Body Location Right QL Mobilization Type Instrument Assisted,Myofascial Release Intensity/Depth Moderate Body Position Sidelying Comments pt in left sidelying pillows between BLEs suboccipital release Mobilization Type Myofascial Release,Sustained Pressure Comments manual sustained pressure cervical flex/ ext nods, then cervical rotation MWM w/ head not post right sided scanele and upper trapezius release Body Location scalenes, SCM, and upper trapezius right side Mobilization Type Myofascial Release,Strumming, Sustained Pressure,Trigger Point Release Intensity/Depth Moderate Body Position Supine Comments manual and self application pincer pressure/ knead SCM then CS rotation w/ head nods. Manual Techniques sacral counter nutation MET Type MET Body Location sacrum Body Position Sidelying PT-OP-R Modalities Start: 08/22/20 08:57 Freq: Status: Active Protocol: Document 08/24/20 12:59 AMH (Rec: 08/24/20 13:00 [facility] [email or web address]) Ultrasound Therapy Treatment right upper trapezius Treatment Duration (minutes) 8 Patient Position Sidelying Coupling Medium Ultrasound Gel Applicator Size (cm2) 5 Mode Setting Continuous Duty Cycle 100% Intensity Setting (w/cm2) 1.5 PT-OP-T Assessment and Plan Start: 08/22/20 08:57 Freq: Status: Active Protocol: Document 11/02/20 14:30 AMH (Rec: 11/02/20 16:22 [facility] [email or web address]) Physical Therapy Assessment Assessment Summary Assessment pt is doing more of his stretches at home and walking. He is feeling better. I modified the iliopsoas stretch to 1/2 kneeling today as he didn't have a high enough place to do john test position. Decreased tightness in the right side of his neck now and today decreased c/o tingling into his hands Physical Therapy Plan Frequency and Duration Frequency of Treatment 2x/Week Duration of Treatment 8 Plan of Care Start Date 10/03/20 Plan of Care End Date 12/01/20 Therapeutic Interventions Therapeutic Interventions Home Exercise Program,Manual Therapy,Neuromuscular Re- education,Patient/Caregiver Education,Self-Care/Home Management,Soft Tissue Mobilization,Therapeutic Exercises Next Visit Focus/Plan Next Note Type Treatment Note Next Visit Plan continue to review self stretches, nerve glides for home, manual therapy treatment
--- NOTE | 2020-11-09 13:00 | PT.OTN ---
Current Diagnoses Other chronic pain (11/09/20) Cervicalgia (11/09/20) Low back pain (11/09/20) Physical Therapy Treatment Note PT-OP-A Visit Information Start: 08/22/20 08:57 Freq: Status: Active Protocol: Document 11/09/20 13:00 AMH (Rec: 11/12/20 17:24 [facility] [email or web address]) Out-Patient Physical Therapy Visit Information Visit Information Visit Type Treatment Note Visit Start Time 13:00 Visit Stop Time 13:45 Total Visit Minutes 45 Visit Number 13 Number of MANAGER POST Visits 0 PT-OP-B Current Condition Start: 08/22/20 08:57 Freq: Status: Active Protocol: Document 08/22/20 09:01 [facility] (Rec: 08/22/20 09:13 [facility] [id number]) Current Condition History of Current Condition History of Current Condition history of chronic neck pain, right sided pain, pain goes down to the upper trapezius, pain is always there. Getting MRI as he has problems with numbness in his hands. He has to lay down to weight of his back. Laying down is the only thing that helps take the weight off his back. 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 Plays the [employer], right handed. Future Testing and Treatments Planned pt is sidebend right, herniated disc in the low back , did cortisone injection as he had sciatica on the left side, the injection helped but now he will have pain on the right side Treatment Goals Patient/Caregiver Goals Goals include avoiding surgery , pain management to be able to live with the pain comfortably and not be as limited as what he does. He wants to be able to kayak or canoe but feels he would pay the brito. PT-OP-C Subjective Start: 08/22/20 08:57 Freq: Status: Active Protocol: Document 11/09/20 13:00 [facility] (Rec: 11/12/20 17:24 [facility] [email or web address]) OP-PT Subjective Patient Comments Patient Comments pt reports he would like a follow up with his doctor regarding his nerve conduction study. His neck is better overall but his hands are still really hurting. He is having diffiuculty making a fist PT-OP-F Manual Assessment Start: 08/22/20 08:57 Freq: Status: Active Protocol: Document 08/22/20 09:00 AMH (Rec: 08/23/20 14:01 [facility] [email or web address]) Manual Assessments Soft Tissue Assessment Soft Tissue Mobility Assessment tightness in the right scaneles, upper trapezius, SCM , pec minor Joint Mobility Assessment Joint Mobility Assessment decreased upper cervcial flexion PT-OP-J Posture/Palpation/Skin Start: 08/22/20 08:57 Freq: Status: Active Protocol: Document 10/03/20 16:22 AMH (Rec: 10/03/20 16:24 AMH [email or web address]) Palpation Assessment Location quadratus lumborum R Palpation Findings Soft Tissue Tightness,Muscle Guarding,Tenderness right piriformis Palpation Findings Soft Tissue Tightness,Spasm, Muscle Guarding right sacral ILB Palpation Findings Tenderness Palpation Details spasm of the piriformis attachments to the sacrum PT-OP-K Range of Motion Start: 08/22/20 08:57 Freq: Status: Active Protocol: Document 10/03/20 16:22 AMH (Rec: 10/03/20 16:24 AMH [email or web address]) Lumbar Spine Range of Motion Lumbar Spine Active Testing Position Standing Flexion 50 ROM Limitations Soft Tissue Tightness Hip Goniometric Range of Motion Hip ROM Limitations Hip ROM Limitations Soft Tissue Tightness Comments + john test Right SLR 45 R 60 L hip flexion limited to 100 degrees right 120 Left PT-OP-L Special Tests Start: 08/22/20 08:57 Freq: Status: Active Protocol: Document 08/22/20 09:00 AMH (Rec: 08/24/20 12:52 [facility] [email or web address]) Special Tests Cervical Spine Special Tests Upper Limb Tension Test Test Results + B Comments median nerve bias PT-OP-M Strength Start: 08/22/20 08:57 Freq: Status: Active Protocol: Document 08/22/20 09:00 AMH (Rec: 08/23/20 14:02 AMH [email or web address]) Wrist Strength Wrist Manual Muscle Testing Left Flexion (C7) 4+ Good+ Extension (C6) 4+ Good+ Right Flexion (C7) 4 Good Extension (C6) 4 Good PT-OP-Q Treatments Start: 08/22/20 08:57 Freq: Status: Active Protocol: Document 11/09/20 13:00 AMH (Rec: 11/12/20 17:25 AMH [email or web address]) Manual Therapy Treatment Soft Tissue Mobilization manual QL release Body Location Right QL Mobilization Type Instrument Assisted,Myofascial Release Intensity/Depth Moderate Body Position Sidelying Comments pt in left sidelying pillows between BLEs pec minor release Body Position Supine suboccipital release Mobilization Type Myofascial Release,Sustained Pressure Comments manual sustained pressure cervical flex/ ext nods, then cervical rotation MWM w/ head not post right sided scanele and upper trapezius release Body Location scalenes, SCM, and upper trapezius right side Mobilization Type Myofascial Release,Strumming, Sustained Pressure,Trigger Point Release Intensity/Depth Moderate Body Position Supine Comments manual and self application pincer pressure/ knead SCM then CS rotation w/ head nods. PT-OP-R Modalities Start: 08/22/20 08:57 Freq: Status: Active Protocol: Document 08/24/20 12:59 AMH (Rec: 08/24/20 13:00 [facility] [email or web address]) Ultrasound Therapy Treatment right upper trapezius Treatment Duration (minutes) 8 Patient Position Sidelying Coupling Medium Ultrasound Gel Applicator Size (cm2) 5 Mode Setting Continuous Duty Cycle 100% Intensity Setting (w/cm2) 1.5 PT-OP-T Assessment and Plan Start: 08/22/20 08:57 Freq: Status: Active Protocol: Document 11/09/20 13:00 AMH (Rec: 11/12/20 17:24 [facility] [email or web address]) Physical Therapy Assessment Assessment Summary Assessment pt continues to work on stretches at home, I advised a resting night splint for him to wear to help with nerve pain at night. Pt is limited by insurance visits and I did the paperwork today to ask for more Physical Therapy Plan Frequency and Duration Frequency of Treatment 2x/Week Duration of Treatment 8 Plan of Care Start Date 10/03/20 Plan of Care End Date 12/01/20 Therapeutic Interventions Therapeutic Interventions Home Exercise Program,Manual Therapy,Neuromuscular Re- education,Patient/Caregiver Education,Self-Care/Home Management,Soft Tissue Mobilization,Therapeutic Exercises Next Visit Focus/Plan Next Note Type Treatment Note Next Visit Plan continue to review self stretches, nerve glides for home, manual therapy treatment
--- NOTE | 2020-11-16 10:55 | PT.OTN ---
Current Diagnoses Other chronic pain (11/16/20) Cervicalgia (11/16/20) Low back pain (11/16/20) Physical Therapy Treatment Note PT-OP-A Visit Information Start: 08/22/20 08:57 Freq: Status: Active Protocol: Document 11/16/20 10:46 [facility] (Rec: 11/16/20 10:55 [facility] [email or web address]) Out-Patient Physical Therapy Visit Information Visit Information Visit Type Treatment Note Visit Start Time 09:00 Visit Stop Time 09:45 Total Visit Minutes 45 Visit Number 14 PT-OP-B Current Condition Start: 08/22/20 08:57 Freq: Status: Active Protocol: Document 08/22/20 09:01 [facility] (Rec: 08/22/20 09:13 [facility] [id number]) Current Condition History of Current Condition History of Current Condition history of chronic neck pain, right sided pain, pain goes down to the upper trapezius, pain is always there. Getting MRI as he has problems with numbness in his hands. He has to lay down to weight of his back. Laying down is the only thing that helps take the weight off his back. 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 Plays the [employer], right handed. Future Testing and Treatments Planned pt is sidebend right, herniated disc in the low back , did cortisone injection as he had sciatica on the left side, the injection helped but now he will have pain on the right side Treatment Goals Patient/Caregiver Goals Goals include avoiding surgery , pain management to be able to live with the pain comfortably and not be as limited as what he does. He wants to be able to kayak or canoe but feels he would pay the brito. PT-OP-C Subjective Start: 08/22/20 08:57 Freq: Status: Active Protocol: Document 11/16/20 10:46 [facility] (Rec: 11/16/20 10:55 [facility] [email or web address]) OP-PT Subjective Patient Comments Patient Comments pt reports he has been able to continue to golf. He has not spoke with his doctor regarding his nerve conduction study. He is still c/o pain into his hands. PT-OP-F Manual Assessment Start: 08/22/20 08:57 Freq: Status: Active Protocol: Document 08/22/20 09:00 [facility] (Rec: 08/23/20 14:01 [facility] [email or web address]) Manual Assessments Soft Tissue Assessment Soft Tissue Mobility Assessment tightness in the right scaneles, upper trapezius, SCM , pec minor Joint Mobility Assessment Joint Mobility Assessment decreased upper cervcial flexion PT-OP-J Posture/Palpation/Skin Start: 08/22/20 08:57 Freq: Status: Active Protocol: Document 10/03/20 16:22 [facility] (Rec: 10/03/20 16:24 [facility] [email or web address]) Palpation Assessment Location quadratus lumborum R Palpation Findings Soft Tissue Tightness,Muscle Guarding,Tenderness right piriformis Palpation Findings Soft Tissue Tightness,Spasm, Muscle Guarding right sacral ILB Palpation Findings Tenderness Palpation Details spasm of the piriformis attachments to the sacrum PT-OP-K Range of Motion Start: 08/22/20 08:57 Freq: Status: Active Protocol: Document 10/03/20 16:22 [facility] (Rec: 10/03/20 16:24 [facility] [email or web address]) Lumbar Spine Range of Motion Lumbar Spine Active Testing Position Standing Flexion 50 ROM Limitations Soft Tissue Tightness Hip Goniometric Range of Motion Hip ROM Limitations Hip ROM Limitations Soft Tissue Tightness Comments + john test Right SLR 45 R 60 L hip flexion limited to 100 degrees right 120 Left PT-OP-L Special Tests Start: 08/22/20 08:57 Freq: Status: Active Protocol: Document 08/22/20 09:00 [facility] (Rec: 08/24/20 12:52 [facility] [email or web address]) Special Tests Cervical Spine Special Tests Upper Limb Tension Test Test Results + B Comments median nerve bias PT-OP-M Strength Start: 08/22/20 08:57 Freq: Status: Active Protocol: Document 08/22/20 09:00 [facility] (Rec: 08/23/20 14:02 [facility] [email or web address]) Wrist Strength Wrist Manual Muscle Testing Left Flexion (C7) 4+ Good+ Extension (C6) 4+ Good+ Right Flexion (C7) 4 Good Extension (C6) 4 Good PT-OP-Q Treatments Start: 08/22/20 08:57 Freq: Status: Active Protocol: Document 11/16/20 10:46 [facility] (Rec: 11/16/20 10:55 [facility] [email or web address]) Therapeutic Exercises Supine Exercises shoulder ER with theraband Supine Exercise Name bilateral shoulder ER Resistance level 1 theraband Comments okay to do over foam roll single knee to chest Reps/Minutes 1-2 reps holding 60 seconds Other Exercises quadruped sidebends Reps/Minutes x 10 reps quadruped kika pose Comments center/and B sides Manual Therapy Treatment Soft Tissue Mobilization pec minor release stretch Body Location pec minor B Mobilization Type Other Comments in supine manual pec minor stretch piriformis release Body Location R Mobilization Type Instrument Assisted,Myofascial Release Intensity/Depth Moderate Body Position Sidelying Comments manual and supine on table instruction self STMs tennis vs racquetball sustained pressure supine MWM heel slide , hip abd manual QL release Body Location Right QL Mobilization Type Instrument Assisted,Myofascial Release Intensity/Depth Moderate Body Position Sidelying Comments pt in left sidelying pillows between BLEs pec minor release Body Position Supine suboccipital release Mobilization Type Myofascial Release,Sustained Pressure Comments manual sustained pressure cervical flex/ ext nods, then cervical rotation MWM w/ head not post right sided scanele and upper trapezius release Body Location scalenes, SCM, and upper trapezius right side Mobilization Type Myofascial Release,Strumming, Sustained Pressure,Trigger Point Release Intensity/Depth Moderate Body Position Supine Comments manual and self application pincer pressure/ knead SCM then CS rotation w/ head nods. PT-OP-R Modalities Start: 08/22/20 08:57 Freq: Status: Active Protocol: Document 08/24/20 12:59 [facility] (Rec: 08/24/20 13:00 [facility] [email or web address]) Ultrasound Therapy Treatment right upper trapezius Treatment Duration (minutes) 8 Patient Position Sidelying Coupling Medium Ultrasound Gel Applicator Size (cm2) 5 Mode Setting Continuous Duty Cycle 100% Intensity Setting (w/cm2) 1.5 PT-OP-T Assessment and Plan Start: 08/22/20 08:57 Freq: Status: Active Protocol: Document 11/16/20 10:46 [facility] (Rec: 11/16/20 10:55 [facility] [email or web address]) Physical Therapy Assessment Assessment Summary Assessment added in rotator cuff strengthening as the pec minor is very tight causing shoulder IR, pt is using a foam roller to stretch but needs postural strengthening as well. Physical Therapy Plan Frequency and Duration Frequency of Treatment 2x/Week Duration of Treatment 8 Plan of Care Start Date 10/03/20 Plan of Care End Date 12/01/20 Therapeutic Interventions Therapeutic Interventions Home Exercise Program,Manual Therapy,Neuromuscular Re- education,Patient/Caregiver Education,Self-Care/Home Management,Soft Tissue Mobilization,Therapeutic Exercises Next Visit Focus/Plan Next Note Type Treatment Note Next Visit Plan review shoulder ER with theraband, continue to work on posture to decrease forward head and shoulders, manual therapy work
--- NOTE | 2020-12-07 11:15 | PT.OPPOC ---
Physical, Occupational & Speech Therapy At [facility] Current Diagnoses Other chronic pain (12/07/20) Cervicalgia (12/07/20) Low back pain (12/07/20) Visit Care Team Role Provider Type Pedro Mcbride MD Attending Provider Physician Primary Care Provider Referring Provider Specialty: Family Practice Address: [address] [place] [address], [facility] Email: [email or web address] Plan Of Care PT-OP-T Assessment and Plan Start: 08/22/20 08:57 Freq: Status: Active Protocol: Document 12/07/20 10:30 [facility] (Rec: 12/09/20 15:17 [facility] [email or web address]) Physical Therapy Assessment Goals Decrease c/o LBP with golfing Impairment low back pain, right sacral pain with golfing Sales Order Coordinator Goal (LTG) Lyndon is able to decrease his back pain enough to golf 18 holes on a golf course excellent progress, pt has been able to increase his golfing LTG Duration 8 weeks hip tightness right greater than left Impairment hip tightness Short Term Goal (STG) Lyndon is educated on stretches for the hips to help improve ROM and decrease strain to the sacrum GOAL MET Decreased cervical spine ROM Sales Order Coordinator Goal (LTG) Pt is demonstrating improved cervical ROM without increased pain GOOD PROGRESS LTG Duration 8 weeks muscle guarding and spasm of the R>L scalenes, upper trapezius, SCM, pec minor Short Term Goal (STG) pt is given a Home stretching program to address tightness in the musculature of the cervical spine GOAL MET STG Duration 5 weeks decreased ability to drive due to moderate pain Care Home Goal (LTG) Pt is able to drive to [place] [facility] without increased c/ o pain Good progress, pt was able to drive to [place] and fly to [place] LTG Duration 8 weeks pain levels cervical spine 8/10 Impairment cervical spine pain levels 8/ 10 Care Home Goal (LTG) With PT techniques and stretches for home pt is able to decrease his pain levels to 2-3/10 or better. good progress LTG Duration 8 weeks Assessment Summary Assessment Lyndon is making progress with PT and is feeling like he is doing better with golfing. He is working on his stretches for home and manual therapy is helping with his mobility. He would benefit from continued PT Physical Therapy Plan Frequency and Duration Frequency of Treatment 2x/Week Duration of Treatment 8 Plan of Care Start Date 12/07/20 Plan of Care End Date 02/08/21 Therapeutic Interventions Therapeutic Interventions Home Exercise Program,Manual Therapy,Neuromuscular Re- education,Patient/Caregiver Education,Self-Care/Home Management,Soft Tissue Mobilization,Therapeutic Exercises Next Visit Focus/Plan Next Note Type Treatment Note Next Visit Plan review shoulder ER with theraband, continue to work on posture to decrease forward head and shoulders, manual therapy work Plan of Care Dates Plan of Care Start Date 12/07/20 Plan of Care End Date 02/08/21 Electronically Signed by: Cristiana Anderson, PT 12/09/20 1774 Please Sign and Return: I have reviewed this Plan of Care and certify that the skilled therapy services above are required to meet the patient?s needs. Physician Signature Date Printed Name and Credentials Clinical Instructor Signature Printed Name and Credentials
--- NOTE | 2020-12-07 11:15 | PT.OTN ---
Current Diagnoses Other chronic pain (12/07/20) Cervicalgia (12/07/20) Low back pain (12/07/20) Physical Therapy Treatment Note PT-OP-A Visit Information Start: 08/22/20 08:57 Freq: Status: Active Protocol: Document 12/07/20 10:35 [facility] (Rec: 12/07/20 10:35 [facility] [id number]) Out-Patient Physical Therapy Visit Information Visit Information Visit Type Treatment Note Visit Start Time 10:30 Visit Stop Time 11:15 Total Visit Minutes 45 Visit Number 15 PT-OP-B Current Condition Start: 08/22/20 08:57 Freq: Status: Active Protocol: Document 08/22/20 09:01 [facility] (Rec: 08/22/20 09:13 [facility] [id number]) Current Condition History of Current Condition History of Current Condition history of chronic neck pain, right sided pain, pain goes down to the upper trapezius, pain is always there. Getting MRI as he has problems with numbness in his hands. He has to lay down to weight of his back. Laying down is the only thing that helps take the weight off his back. 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 Plays the [employer], right handed. Future Testing and Treatments Planned pt is sidebend right, herniated disc in the low back , did cortisone injection as he had sciatica on the left side, the injection helped but now he will have pain on the right side Treatment Goals Patient/Caregiver Goals Goals include avoiding surgery , pain management to be able to live with the pain comfortably and not be as limited as what he does. He wants to be able to kayak or canoe but feels he would pay the brito. PT-OP-C Subjective Start: 08/22/20 08:57 Freq: Status: Active Protocol: Document 12/07/20 10:35 [facility] (Rec: 12/07/20 10:35 [facility] [id number]) OP-PT Subjective Patient Comments Patient Comments pt reports his low back has been giving him grief, he needed to travel so had to miss his appointments PT-OP-F Manual Assessment Start: 08/22/20 08:57 Freq: Status: Active Protocol: Document 08/22/20 09:00 [facility] (Rec: 08/23/20 14:01 [facility] [email or web address]) Manual Assessments Soft Tissue Assessment Soft Tissue Mobility Assessment tightness in the right scaneles, upper trapezius, SCM , pec minor Joint Mobility Assessment Joint Mobility Assessment decreased upper cervcial flexion PT-OP-J Posture/Palpation/Skin Start: 08/22/20 08:57 Freq: Status: Active Protocol: Document 10/03/20 16:22 [facility] (Rec: 10/03/20 16:24 [facility] [email or web address]) Palpation Assessment Location quadratus lumborum R Palpation Findings Soft Tissue Tightness,Muscle Guarding,Tenderness right piriformis Palpation Findings Soft Tissue Tightness,Spasm, Muscle Guarding right sacral ILB Palpation Findings Tenderness Palpation Details spasm of the piriformis attachments to the sacrum PT-OP-K Range of Motion Start: 08/22/20 08:57 Freq: Status: Active Protocol: Document 10/03/20 16:22 [facility] (Rec: 10/03/20 16:24 [facility] [email or web address]) Lumbar Spine Range of Motion Lumbar Spine Active Testing Position Standing Flexion 50 ROM Limitations Soft Tissue Tightness Hip Goniometric Range of Motion Hip ROM Limitations Hip ROM Limitations Soft Tissue Tightness Comments + john test Right SLR 45 R 60 L hip flexion limited to 100 degrees right 120 Left PT-OP-L Special Tests Start: 08/22/20 08:57 Freq: Status: Active Protocol: Document 08/22/20 09:00 [facility] (Rec: 08/24/20 12:52 [facility] [email or web address]) Special Tests Cervical Spine Special Tests Upper Limb Tension Test Test Results + B Comments median nerve bias PT-OP-M Strength Start: 08/22/20 08:57 Freq: Status: Active Protocol: Document 08/22/20 09:00 [facility] (Rec: 08/23/20 14:02 [facility] [email or web address]) Wrist Strength Wrist Manual Muscle Testing Left Flexion (C7) 4+ Good+ Extension (C6) 4+ Good+ Right Flexion (C7) 4 Good Extension (C6) 4 Good PT-OP-Q Treatments Start: 08/22/20 08:57 Freq: Status: Active Protocol: Document 12/07/20 10:30 [facility] (Rec: 12/09/20 15:17 [facility] [email or web address]) Manual Therapy Treatment Soft Tissue Mobilization piriformis release Body Location R Mobilization Type Instrument Assisted,Myofascial Release Intensity/Depth Moderate Body Position Sidelying Comments manual and supine on table instruction self STMs tennis vs racquetball sustained pressure supine MWM heel slide , hip abd manual QL release Body Location Right QL Mobilization Type Instrument Assisted,Myofascial Release Intensity/Depth Moderate Body Position Sidelying Comments pt in left sidelying pillows between BLEs Manual Techniques manual hip IR/ER stretch Body Position Prone Comments bilateral manual hip IR/ER stretch manual quad and iliopsoas stretch Body Location quad and iliopsoas manual stretch Body Position Prone sacral counter nutation MET Type MET Body Location sacrum Body Position Sidelying PT-OP-R Modalities Start: 08/22/20 08:57 Freq: Status: Active Protocol: Document 08/24/20 12:59 [facility] (Rec: 08/24/20 13:00 [facility] [email or web address]) Ultrasound Therapy Treatment right upper trapezius Treatment Duration (minutes) 8 Patient Position Sidelying Coupling Medium Ultrasound Gel Applicator Size (cm2) 5 Mode Setting Continuous Duty Cycle 100% Intensity Setting (w/cm2) 1.5 PT-OP-T Assessment and Plan Start: 08/22/20 08:57 Freq: Status: Active Protocol: Document 12/07/20 10:30 [facility] (Rec: 12/09/20 15:17 [facility] [email or web address]) Physical Therapy Assessment Goals Decrease c/o LBP with golfing Impairment low back pain, right sacral pain with golfing Service Order Taker Goal (LTG) Lyndon is able to decrease his back pain enough to golf 18 holes on a golf course excellent progress, pt has been able to increase his golfing LTG Duration 8 weeks hip tightness right greater than left Impairment hip tightness Short Term Goal (STG) Lyndon is educated on stretches for the hips to help improve ROM and decrease strain to the sacrum GOAL MET Decreased cervical spine ROM Service Order Taker Goal (LTG) Pt is demonstrating improved cervical ROM without increased pain GOOD PROGRESS LTG Duration 8 weeks muscle guarding and spasm of the R>L scalenes, upper trapezius, SCM, pec minor Short Term Goal (STG) pt is given a Home stretching program to address tightness in the musculature of the cervical spine GOAL MET STG Duration 5 weeks decreased ability to drive due to moderate pain Service Order Taker Goal (LTG) Pt is able to drive to [place] and [place] without increased c/ o pain Good progress, pt was able to drive to [place] and fly to [place] LTG Duration 8 weeks pain levels cervical spine 8/10 Impairment cervical spine pain levels 8/ 10 Service Order Taker Goal (LTG) With PT techniques and stretches for home pt is able to decrease his pain levels to 2-3/10 or better. good progress LTG Duration 8 weeks Assessment Summary Assessment Lyndon is making progress with PT and is feeling like he is doing better with golfing. He is working on his stretches for home and manual therapy is helping with his mobility. He would benefit from continued PT Physical Therapy Plan Frequency and Duration Frequency of Treatment 2x/Week Duration of Treatment 8 Plan of Care Start Date 12/07/20 Plan of Care End Date 02/08/21 Therapeutic Interventions Therapeutic Interventions Home Exercise Program,Manual Therapy,Neuromuscular Re- education,Patient/Caregiver Education,Self-Care/Home Management,Soft Tissue Mobilization,Therapeutic Exercises Next Visit Focus/Plan Next Note Type Treatment Note Next Visit Plan review shoulder ER with theraband, continue to work on posture to decrease forward head and shoulders, manual therapy work
--- NOTE | 2020-12-09 15:19 | PT.OPPN ---
Current Diagnoses Other chronic pain (12/07/20) Cervicalgia (12/07/20) Low back pain (12/07/20) Physical Therapy Progress Note PT-OP-A Visit Information Start: 08/22/20 08:57 Freq: Status: Active Protocol: Document 12/07/20 10:35 [facility] (Rec: 12/07/20 10:35 [facility] [id number]) Out-Patient Physical Therapy Visit Information Visit Information Visit Type Treatment Note Visit Start Time 10:30 Visit Stop Time 11:15 Total Visit Minutes 45 Visit Number 15 PT-OP-B Current Condition Start: 08/22/20 08:57 Freq: Status: Active Protocol: Document 08/22/20 09:01 [facility] (Rec: 08/22/20 09:13 [facility] [id number]) Current Condition History of Current Condition History of Current Condition history of chronic neck pain, right sided pain, pain goes down to the upper trapezius, pain is always there. Getting MRI as he has problems with numbness in his hands. He has to lay down to weight of his back. Laying down is the only thing that helps take the weight off his back. 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 Plays the [employer], right handed. Future Testing and Treatments Planned pt is sidebend right, herniated disc in the low back , did cortisone injection as he had sciatica on the left side, the injection helped but now he will have pain on the right side Treatment Goals Patient/Caregiver Goals Goals include avoiding surgery , pain management to be able to live with the pain comfortably and not be as limited as what he does. He wants to be able to kayak or canoe but feels he would pay the brito. PT-OP-C Subjective Start: 08/22/20 08:57 Freq: Status: Active Protocol: Document 12/07/20 10:35 [facility] (Rec: 12/07/20 10:35 [facility] [id number]) OP-PT Subjective Patient Comments Patient Comments pt reports his low back has been giving him grief, he needed to travel so had to miss his appointments PT-OP-F Manual Assessment Start: 08/22/20 08:57 Freq: Status: Active Protocol: Document 08/22/20 09:00 [facility] (Rec: 08/23/20 14:01 [facility] [email or web address]) Manual Assessments Soft Tissue Assessment Soft Tissue Mobility Assessment tightness in the right scaneles, upper trapezius, SCM , pec minor Joint Mobility Assessment Joint Mobility Assessment decreased upper cervcial flexion PT-OP-J Posture/Palpation/Skin Start: 08/22/20 08:57 Freq: Status: Active Protocol: Document 10/03/20 16:22 [facility] (Rec: 10/03/20 16:24 [facility] [email or web address]) Palpation Assessment Location quadratus lumborum R Palpation Findings Soft Tissue Tightness,Muscle Guarding,Tenderness right piriformis Palpation Findings Soft Tissue Tightness,Spasm, Muscle Guarding right sacral ILB Palpation Findings Tenderness Palpation Details spasm of the piriformis attachments to the sacrum PT-OP-K Range of Motion Start: 08/22/20 08:57 Freq: Status: Active Protocol: Document 10/03/20 16:22 [facility] (Rec: 10/03/20 16:24 [facility] [email or web address]) Lumbar Spine Range of Motion Lumbar Spine Active Testing Position Standing Flexion 50 ROM Limitations Soft Tissue Tightness Hip Goniometric Range of Motion Hip ROM Limitations Hip ROM Limitations Soft Tissue Tightness Comments + john test Right SLR 45 R 60 L hip flexion limited to 100 degrees right 120 Left PT-OP-L Special Tests Start: 08/22/20 08:57 Freq: Status: Active Protocol: Document 08/22/20 09:00 [facility] (Rec: 08/24/20 12:52 [facility] [email or web address]) Special Tests Cervical Spine Special Tests Upper Limb Tension Test Test Results + B Comments median nerve bias PT-OP-M Strength Start: 08/22/20 08:57 Freq: Status: Active Protocol: Document 08/22/20 09:00 [facility] (Rec: 08/23/20 14:02 [facility] [email or web address]) Wrist Strength Wrist Manual Muscle Testing Left Flexion (C7) 4+ Good+ Extension (C6) 4+ Good+ Right Flexion (C7) 4 Good Extension (C6) 4 Good PT-OP-T Assessment and Plan Start: 08/22/20 08:57 Freq: Status: Active Protocol: Document 12/07/20 10:30 [facility] (Rec: 12/09/20 15:17 [facility] [email or web address]) Physical Therapy Assessment Goals Decrease c/o LBP with golfing Impairment low back pain, right sacral pain with golfing [facility] Goal (LTG) Lyndon is able to decrease his back pain enough to golf 18 holes on a golf course excellent progress, pt has been able to increase his golfing LTG Duration 8 weeks hip tightness right greater than left Impairment hip tightness Short Term Goal (STG) Lyndon is educated on stretches for the hips to help improve ROM and decrease strain to the sacrum GOAL MET Decreased cervical spine ROM [facility] Goal (LTG) Pt is demonstrating improved cervical ROM without increased pain GOOD PROGRESS LTG Duration 8 weeks muscle guarding and spasm of the R>L scalenes, upper trapezius, SCM, pec minor Short Term Goal (STG) pt is given a Home stretching program to address tightness in the musculature of the cervical spine GOAL MET STG Duration 5 weeks decreased ability to drive due to moderate pain Dental Director Goal (LTG) Pt is able to drive to [place] [facility] without increased c/ o pain Good progress, pt was able to drive to [place] and fly to [place] LTG Duration 8 weeks pain levels cervical spine 8/10 Impairment cervical spine pain levels 8/ 10 Dental Director Goal (LTG) With PT techniques and stretches for home pt is able to decrease his pain levels to 2-3/10 or better. good progress LTG Duration 8 weeks Assessment Summary Assessment Lyndon is making progress with PT and is feeling like he is doing better with golfing. He is working on his stretches for home and manual therapy is helping with his mobility. He would benefit from continued PT Physical Therapy Plan Frequency and Duration Frequency of Treatment 2x/Week Duration of Treatment 8 Plan of Care Start Date 12/07/20 Plan of Care End Date 02/08/21 Therapeutic Interventions Therapeutic Interventions Home Exercise Program,Manual Therapy,Neuromuscular Re- education,Patient/Caregiver Education,Self-Care/Home Management,Soft Tissue Mobilization,Therapeutic Exercises Next Visit Focus/Plan Next Note Type Treatment Note Next Visit Plan review shoulder ER with theraband, continue to work on posture to decrease forward head and shoulders, manual therapy work
--- NOTE | 2020-12-14 11:52 | PT.OTN ---
Current Diagnoses Other chronic pain (12/14/20) Cervicalgia (12/14/20) Low back pain (12/14/20) Physical Therapy Treatment Note PT-OP-A Visit Information Start: 08/22/20 08:57 Freq: Status: Active Protocol: Document 12/14/20 09:04 [facility] (Rec: 12/14/20 09:08 [facility] [id number]) Out-Patient Physical Therapy Visit Information Visit Information Visit Type Treatment Note Visit Start Time 09:00 Visit Stop Time 09:45 Total Visit Minutes 45 Visit Number 16 PT-OP-B Current Condition Start: 08/22/20 08:57 Freq: Status: Active Protocol: Document 08/22/20 09:01 [facility] (Rec: 08/22/20 09:13 [facility] [id number]) Current Condition History of Current Condition History of Current Condition history of chronic neck pain, right sided pain, pain goes down to the upper trapezius, pain is always there. Getting MRI as he has problems with numbness in his hands. He has to lay down to weight of his back. Laying down is the only thing that helps take the weight off his back. 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 Plays the [employer], right handed. Future Testing and Treatments Planned pt is sidebend right, herniated disc in the low back , did cortisone injection as he had sciatica on the left side, the injection helped but now he will have pain on the right side Treatment Goals Patient/Caregiver Goals Goals include avoiding surgery , pain management to be able to live with the pain comfortably and not be as limited as what he does. He wants to be able to kayak or canoe but feels he would pay the brito. PT-OP-C Subjective Start: 08/22/20 08:57 Freq: Status: Active Protocol: Document 12/14/20 09:04 [facility] (Rec: 12/14/20 09:08 [facility] [id number]) OP-PT Subjective Patient Comments Patient Comments pt reports he has been doing his stretches but that his back gets fatigued 2[address] day[address] Patient Reported Progress Improving PT-OP-F Manual Assessment Start: 08/22/20 08:57 Freq: Status: Active Protocol: Document 08/22/20 09:00 [facility] (Rec: 08/23/20 14:01 [facility] [email or web address]) Manual Assessments Soft Tissue Assessment Soft Tissue Mobility Assessment tightness in the right scaneles, upper trapezius, SCM , pec minor Joint Mobility Assessment Joint Mobility Assessment decreased upper cervcial flexion PT-OP-J Posture/Palpation/Skin Start: 08/22/20 08:57 Freq: Status: Active Protocol: Document 10/03/20 16:22 [facility] (Rec: 10/03/20 16:24 [facility] [email or web address]) Palpation Assessment Location quadratus lumborum R Palpation Findings Soft Tissue Tightness,Muscle Guarding,Tenderness right piriformis Palpation Findings Soft Tissue Tightness,Spasm, Muscle Guarding right sacral ILB Palpation Findings Tenderness Palpation Details spasm of the piriformis attachments to the sacrum PT-OP-K Range of Motion Start: 08/22/20 08:57 Freq: Status: Active Protocol: Document 10/03/20 16:22 [facility] (Rec: 10/03/20 16:24 [facility] [email or web address]) Lumbar Spine Range of Motion Lumbar Spine Active Testing Position Standing Flexion 50 ROM Limitations Soft Tissue Tightness Hip Goniometric Range of Motion Hip ROM Limitations Hip ROM Limitations Soft Tissue Tightness Comments + john test Right SLR 45 R 60 L hip flexion limited to 100 degrees right 120 Left PT-OP-L Special Tests Start: 08/22/20 08:57 Freq: Status: Active Protocol: Document 08/22/20 09:00 [facility] (Rec: 08/24/20 12:52 [facility] [email or web address]) Special Tests Cervical Spine Special Tests Upper Limb Tension Test Test Results + B Comments median nerve bias PT-OP-M Strength Start: 08/22/20 08:57 Freq: Status: Active Protocol: Document 08/22/20 09:00 [facility] (Rec: 08/23/20 14:02 [facility] [email or web address]) Wrist Strength Wrist Manual Muscle Testing Left Flexion (C7) 4+ Good+ Extension (C6) 4+ Good+ Right Flexion (C7) 4 Good Extension (C6) 4 Good PT-OP-Q Treatments Start: 08/22/20 08:57 Freq: Status: Active Protocol: Document 12/14/20 09:00 [facility] (Rec: 12/14/20 11:52 [facility] [id number]) Therapeutic Exercises Other Exercises cat cow Reps/Minutes x 10 reps quadruped sidebends Reps/Minutes x 10 reps quadruped kika pose Comments center/and B sides Manual Therapy Treatment Soft Tissue Mobilization piriformis release Body Location R Mobilization Type Instrument Assisted,Myofascial Release Intensity/Depth Moderate Body Position Sidelying Comments manual and supine on table instruction self STMs tennis vs racquetball sustained pressure supine MWM heel slide , hip abd manual QL release Body Location Right QL Mobilization Type Instrument Assisted,Myofascial Release Intensity/Depth Moderate Body Position Sidelying Comments pt in left sidelying pillows between BLEs Manual Techniques manual hip IR/ER stretch Body Position Prone Comments bilateral manual hip IR/ER stretch manual quad and iliopsoas stretch Body Location quad and iliopsoas manual stretch Body Position Prone PT-OP-R Modalities Start: 08/22/20 08:57 Freq: Status: Active Protocol: Document 08/24/20 12:59 [facility] (Rec: 08/24/20 13:00 [facility] [email or web address]) Ultrasound Therapy Treatment right upper trapezius Treatment Duration (minutes) 8 Patient Position Sidelying Coupling Medium Ultrasound Gel Applicator Size (cm2) 5 Mode Setting Continuous Duty Cycle 100% Intensity Setting (w/cm2) 1.5 PT-OP-T Assessment and Plan Start: 08/22/20 08:57 Freq: Status: Active Protocol: Document 12/14/20 09:00 [facility] (Rec: 12/14/20 11:52 [facility] [id number]) Physical Therapy Assessment Assessment Summary Assessment Pt's hands were going numb today during treatment so positions were changed. Worked on hands and knees for low back stretches however is tolerance today was reduced due to wrist pain. Physical Therapy Plan Frequency and Duration Frequency of Treatment 2x/Week Duration of Treatment 8 Plan of Care Start Date 12/07/20 Plan of Care End Date 02/08/21 Therapeutic Interventions Therapeutic Interventions Home Exercise Program,Manual Therapy,Neuromuscular Re- education,Patient/Caregiver Education,Self-Care/Home Management,Soft Tissue Mobilization,Therapeutic Exercises Next Visit Focus/Plan Next Note Type Treatment Note Next Visit Plan review shoulder ER with theraband, continue to work on posture to decrease forward head and shoulders, manual therapy work
--- NOTE | 2020-12-27 13:36 | PT.OTN ---
Current Diagnoses Other chronic pain (12/27/20) Cervicalgia (12/27/20) Low back pain (12/27/20) Physical Therapy Treatment Note PT-OP-A Visit Information Start: 08/22/20 08:57 Freq: Status: Active Protocol: Document 12/27/20 09:47 [facility] (Rec: 12/27/20 09:49 [facility] [id number]) Out-Patient Physical Therapy Visit Information Visit Information Visit Type Treatment Note Visit Start Time 09:45 Visit Stop Time 10:30 Total Visit Minutes 45 Visit Number 17 PT-OP-B Current Condition Start: 08/22/20 08:57 Freq: Status: Active Protocol: Document 08/22/20 09:01 [facility] (Rec: 08/22/20 09:13 [facility] [id number]) Current Condition History of Current Condition History of Current Condition history of chronic neck pain, right sided pain, pain goes down to the upper trapezius, pain is always there. Getting MRI as he has problems with numbness in his hands. He has to lay down to weight of his back. Laying down is the only thing that helps take the weight off his back. 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 Plays the [employer], right handed. Future Testing and Treatments Planned pt is sidebend right, herniated disc in the low back , did cortisone injection as he had sciatica on the left side, the injection helped but now he will have pain on the right side Treatment Goals Patient/Caregiver Goals Goals include avoiding surgery , pain management to be able to live with the pain comfortably and not be as limited as what he does. He wants to be able to kayak or canoe but feels he would pay the brito. PT-OP-C Subjective Start: 08/22/20 08:57 Freq: Status: Active Protocol: Document 12/27/20 09:47 [facility] (Rec: 12/27/20 09:49 [facility] [id number]) OP-PT Subjective Patient Comments Patient Comments pt reports his neck hasn't been to bad and his hands re a little better this am. PT-OP-F Manual Assessment Start: 08/22/20 08:57 Freq: Status: Active Protocol: Document 08/22/20 09:00 [facility] (Rec: 08/23/20 14:01 [facility] [email or web address]) Manual Assessments Soft Tissue Assessment Soft Tissue Mobility Assessment tightness in the right scaneles, upper trapezius, SCM , pec minor Joint Mobility Assessment Joint Mobility Assessment decreased upper cervcial flexion PT-OP-J Posture/Palpation/Skin Start: 08/22/20 08:57 Freq: Status: Active Protocol: Document 10/03/20 16:22 [facility] (Rec: 10/03/20 16:24 [facility] [email or web address]) Palpation Assessment Location quadratus lumborum R Palpation Findings Soft Tissue Tightness,Muscle Guarding,Tenderness right piriformis Palpation Findings Soft Tissue Tightness,Spasm, Muscle Guarding right sacral ILB Palpation Findings Tenderness Palpation Details spasm of the piriformis attachments to the sacrum PT-OP-K Range of Motion Start: 08/22/20 08:57 Freq: Status: Active Protocol: Document 10/03/20 16:22 [facility] (Rec: 10/03/20 16:24 [facility] [email or web address]) Lumbar Spine Range of Motion Lumbar Spine Active Testing Position Standing Flexion 50 ROM Limitations Soft Tissue Tightness Hip Goniometric Range of Motion Hip ROM Limitations Hip ROM Limitations Soft Tissue Tightness Comments + john test Right SLR 45 R 60 L hip flexion limited to 100 degrees right 120 Left PT-OP-L Special Tests Start: 08/22/20 08:57 Freq: Status: Active Protocol: Document 08/22/20 09:00 [facility] (Rec: 08/24/20 12:52 [facility] [email or web address]) Special Tests Cervical Spine Special Tests Upper Limb Tension Test Test Results + B Comments median nerve bias PT-OP-M Strength Start: 08/22/20 08:57 Freq: Status: Active Protocol: Document 08/22/20 09:00 [facility] (Rec: 08/23/20 14:02 [facility] [email or web address]) Wrist Strength Wrist Manual Muscle Testing Left Flexion (C7) 4+ Good+ Extension (C6) 4+ Good+ Right Flexion (C7) 4 Good Extension (C6) 4 Good PT-OP-Q Treatments Start: 08/22/20 08:57 Freq: Status: Active Protocol: Document 12/27/20 09:45 [facility] (Rec: 12/27/20 13:36 [facility] [id number]) Manual Therapy Treatment Soft Tissue Mobilization piriformis release Body Location R Mobilization Type Instrument Assisted,Myofascial Release Intensity/Depth Moderate Body Position Sidelying Comments manual and supine on table instruction self STMs tennis vs racquetball sustained pressure supine MWM heel slide , hip abd manual QL release Body Location Right QL Mobilization Type Instrument Assisted,Myofascial Release Intensity/Depth Moderate Body Position Sidelying Comments pt in left sidelying pillows between BLEs Parascapulars and mid trap Body Location R parascapulars, mid/lower trap Mobilization Type Sustained Pressure,Trigger Point Release Intensity/Depth Moderate Body Position Supine Manual Techniques manual ITB stretch and release Body Location B ITB Body Position Supine manual hip IR/ER stretch Body Position Prone Comments bilateral manual hip IR/ER stretch manual quad and iliopsoas stretch Body Location quad and iliopsoas manual stretch Body Position Prone sacral counter nutation MET Type MET Body Location sacrum Body Position Sidelying PT-OP-R Modalities Start: 08/22/20 08:57 Freq: Status: Active Protocol: Document 08/24/20 12:59 [facility] (Rec: 08/24/20 13:00 [facility] [email or web address]) Ultrasound Therapy Treatment right upper trapezius Treatment Duration (minutes) 8 Patient Position Sidelying Coupling Medium Ultrasound Gel Applicator Size (cm2) 5 Mode Setting Continuous Duty Cycle 100% Intensity Setting (w/cm2) 1.5 PT-OP-T Assessment and Plan Start: 08/22/20 08:57 Freq: Status: Active Protocol: Document 12/27/20 09:45 [facility] (Rec: 12/27/20 13:36 [facility] [id number]) Physical Therapy Assessment Assessment Summary Assessment pt was doing better with his hands today and decreased numbness, he has cut back on sugar which he feels has helped. Worked with him on ITB stretching today for home as his ITB tightness is most likely contributing to pain symptoms Physical Therapy Plan Frequency and Duration Frequency of Treatment 2x/Week Duration of Treatment 8 Plan of Care Start Date 12/07/20 Plan of Care End Date 02/08/21 Therapeutic Interventions Therapeutic Interventions Home Exercise Program,Manual Therapy,Neuromuscular Re- education,Patient/Caregiver Education,Self-Care/Home Management,Soft Tissue Mobilization,Therapeutic Exercises Next Visit Focus/Plan Next Note Type Treatment Note Next Visit Plan review shoulder ER with theraband, continue to work on posture to decrease forward head and shoulders, manual therapy work
--- NOTE | 2021-01-02 13:28 | PT.OTN ---
Current Diagnoses Other chronic pain (01/02/21) Cervicalgia (01/02/21) Low back pain (01/02/21) Physical Therapy Treatment Note PT-OP-A Visit Information Start: 08/22/20 08:57 Freq: Status: Active Protocol: Document 01/02/21 11:18 [facility] (Rec: 01/02/21 11:19 [facility] [id number]) Out-Patient Physical Therapy Visit Information Visit Information Visit Type Treatment Note Visit Start Time 11:15 Visit Stop Time 12:00 Total Visit Minutes 45 Visit Number 18 PT-OP-B Current Condition Start: 08/22/20 08:57 Freq: Status: Active Protocol: Document 08/22/20 09:01 [facility] (Rec: 08/22/20 09:13 [facility] [id number]) Current Condition History of Current Condition History of Current Condition history of chronic neck pain, right sided pain, pain goes down to the upper trapezius, pain is always there. Getting MRI as he has problems with numbness in his hands. He has to lay down to weight of his back. Laying down is the only thing that helps take the weight off his back. 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 Plays the [employer], right handed. Future Testing and Treatments Planned pt is sidebend right, herniated disc in the low back , did cortisone injection as he had sciatica on the left side, the injection helped but now he will have pain on the right side Treatment Goals Patient/Caregiver Goals Goals include avoiding surgery , pain management to be able to live with the pain comfortably and not be as limited as what he does. He wants to be able to kayak or canoe but feels he would pay the brito. PT-OP-C Subjective Start: 08/22/20 08:57 Freq: Status: Active Protocol: Document 01/02/21 11:18 [facility] (Rec: 01/02/21 11:19 [facility] [id number]) OP-PT Subjective Patient Comments Patient Comments pt flew to [place] did well but his neck is sore from looking to the right out the window. He notes his back did pretty well traveling Patient Reported Progress Improving PT-OP-F Manual Assessment Start: 08/22/20 08:57 Freq: Status: Active Protocol: Document 08/22/20 09:00 [facility] (Rec: 08/23/20 14:01 [facility] [email or web address]) Manual Assessments Soft Tissue Assessment Soft Tissue Mobility Assessment tightness in the right scaneles, upper trapezius, SCM , pec minor Joint Mobility Assessment Joint Mobility Assessment decreased upper cervcial flexion PT-OP-J Posture/Palpation/Skin Start: 08/22/20 08:57 Freq: Status: Active Protocol: Document 10/03/20 16:22 [facility] (Rec: 10/03/20 16:24 [facility] [email or web address]) Palpation Assessment Location quadratus lumborum R Palpation Findings Soft Tissue Tightness,Muscle Guarding,Tenderness right piriformis Palpation Findings Soft Tissue Tightness,Spasm, Muscle Guarding right sacral ILB Palpation Findings Tenderness Palpation Details spasm of the piriformis attachments to the sacrum PT-OP-K Range of Motion Start: 08/22/20 08:57 Freq: Status: Active Protocol: Document 10/03/20 16:22 [facility] (Rec: 10/03/20 16:24 [facility] [email or web address]) Lumbar Spine Range of Motion Lumbar Spine Active Testing Position Standing Flexion 50 ROM Limitations Soft Tissue Tightness Hip Goniometric Range of Motion Hip ROM Limitations Hip ROM Limitations Soft Tissue Tightness Comments + john test Right SLR 45 R 60 L hip flexion limited to 100 degrees right 120 Left PT-OP-L Special Tests Start: 08/22/20 08:57 Freq: Status: Active Protocol: Document 08/22/20 09:00 [facility] (Rec: 08/24/20 12:52 [facility] [email or web address]) Special Tests Cervical Spine Special Tests Upper Limb Tension Test Test Results + B Comments median nerve bias PT-OP-M Strength Start: 08/22/20 08:57 Freq: Status: Active Protocol: Document 08/22/20 09:00 [facility] (Rec: 08/23/20 14:02 [facility] [email or web address]) Wrist Strength Wrist Manual Muscle Testing Left Flexion (C7) 4+ Good+ Extension (C6) 4+ Good+ Right Flexion (C7) 4 Good Extension (C6) 4 Good PT-OP-Q Treatments Start: 08/22/20 08:57 Freq: Status: Active Protocol: Document 01/02/21 13:25 [facility] (Rec: 01/02/21 13:28 [facility] [email or web address]) Manual Therapy Treatment Soft Tissue Mobilization pec minor release stretch Body Location pec minor B Mobilization Type Other Comments in supine manual pec minor stretch sidelying scapular mobilizations with manual pec minor stretch Body Position left sidelying suboccipital release Mobilization Type Myofascial Release,Sustained Pressure Comments manual sustained pressure cervical flex/ ext nods, then cervical rotation MWM w/ head not post right sided scanele and upper trapezius release Body Location scalenes, SCM, and upper trapezius right side Mobilization Type Myofascial Release,Strumming, Sustained Pressure,Trigger Point Release Intensity/Depth Moderate Body Position Supine Comments manual and self application pincer pressure/ knead SCM then CS rotation w/ head nods. Manual Techniques median nerve glides Type R Body Position Supine Comments manual, states performs self when needed. PT-OP-R Modalities Start: 08/22/20 08:57 Freq: Status: Active Protocol: Document 08/24/20 12:59 [facility] (Rec: 08/24/20 13:00 [facility] [email or web address]) Ultrasound Therapy Treatment right upper trapezius Treatment Duration (minutes) 8 Patient Position Sidelying Coupling Medium Ultrasound Gel Applicator Size (cm2) 5 Mode Setting Continuous Duty Cycle 100% Intensity Setting (w/cm2) 1.5 PT-OP-T Assessment and Plan Start: 08/22/20 08:57 Freq: Status: Active Protocol: Document 01/02/21 13:25 [facility] (Rec: 01/02/21 13:28 [facility] [email or web address]) Physical Therapy Assessment Assessment Summary Assessment pt doing better with his low back, still very tight in his pec minor muscles B, he is working on laying over his foam roll at home, continue encouraging stretching for home. Physical Therapy Plan Frequency and Duration Frequency of Treatment 2x/Week Duration of Treatment 8 Plan of Care Start Date 12/07/20 Plan of Care End Date 02/08/21 Therapeutic Interventions Therapeutic Interventions Home Exercise Program,Manual Therapy,Neuromuscular Re- education,Patient/Caregiver Education,Self-Care/Home Management,Soft Tissue Mobilization,Therapeutic Exercises Next Visit Focus/Plan Next Note Type Treatment Note Next Visit Plan continue to progress stretching at home and postural education to reduce forward head and shoulder posture.
--- NOTE | 2021-01-09 14:14 | PT.OTN ---
Current Diagnoses Other chronic pain (01/09/21) Cervicalgia (01/09/21) Low back pain (01/09/21) Physical Therapy Treatment Note PT-OP-A Visit Information Start: 08/22/20 08:57 Freq: Status: Active Protocol: Document 01/09/21 14:37 [facility] (Rec: 01/09/21 15:21 [facility] [id number]) Out-Patient Physical Therapy Visit Information Visit Information Visit Type Treatment Note Visit Start Time 14:35 Visit Stop Time 15:20 Total Visit Minutes 45 Visit Number 19 PT-OP-B Current Condition Start: 08/22/20 08:57 Freq: Status: Active Protocol: Document 08/22/20 09:01 [facility] (Rec: 08/22/20 09:13 [facility] [id number]) Current Condition History of Current Condition History of Current Condition history of chronic neck pain, right sided pain, pain goes down to the upper trapezius, pain is always there. Getting MRI as he has problems with numbness in his hands. He has to lay down to weight of his back. Laying down is the only thing that helps take the weight off his back. 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 Plays the [employer], right handed. Future Testing and Treatments Planned pt is sidebend right, herniated disc in the low back , did cortisone injection as he had sciatica on the left side, the injection helped but now he will have pain on the right side Treatment Goals Patient/Caregiver Goals Goals include avoiding surgery , pain management to be able to live with the pain comfortably and not be as limited as what he does. He wants to be able to kayak or canoe but feels he would pay the brito. PT-OP-C Subjective Start: 08/22/20 08:57 Freq: Status: Active Protocol: Document 01/09/21 14:37 [facility] (Rec: 01/09/21 15:21 [facility] [id number]) OP-PT Subjective Patient Comments Patient Comments pt notes his neck continues to improve and is feeling better . PT-OP-F Manual Assessment Start: 08/22/20 08:57 Freq: Status: Active Protocol: Document 08/22/20 09:00 [facility] (Rec: 08/23/20 14:01 [facility] [email or web address]) Manual Assessments Soft Tissue Assessment Soft Tissue Mobility Assessment tightness in the right scaneles, upper trapezius, SCM , pec minor Joint Mobility Assessment Joint Mobility Assessment decreased upper cervcial flexion PT-OP-J Posture/Palpation/Skin Start: 08/22/20 08:57 Freq: Status: Active Protocol: Document 10/03/20 16:22 [facility] (Rec: 10/03/20 16:24 [facility] [email or web address]) Palpation Assessment Location quadratus lumborum R Palpation Findings Soft Tissue Tightness,Muscle Guarding,Tenderness right piriformis Palpation Findings Soft Tissue Tightness,Spasm, Muscle Guarding right sacral ILB Palpation Findings Tenderness Palpation Details spasm of the piriformis attachments to the sacrum PT-OP-K Range of Motion Start: 08/22/20 08:57 Freq: Status: Active Protocol: Document 10/03/20 16:22 [facility] (Rec: 10/03/20 16:24 [facility] [email or web address]) Lumbar Spine Range of Motion Lumbar Spine Active Testing Position Standing Flexion 50 ROM Limitations Soft Tissue Tightness Hip Goniometric Range of Motion Hip ROM Limitations Hip ROM Limitations Soft Tissue Tightness Comments + john test Right SLR 45 R 60 L hip flexion limited to 100 degrees right 120 Left PT-OP-L Special Tests Start: 08/22/20 08:57 Freq: Status: Active Protocol: Document 08/22/20 09:00 [facility] (Rec: 08/24/20 12:52 [facility] [email or web address]) Special Tests Cervical Spine Special Tests Upper Limb Tension Test Test Results + B Comments median nerve bias PT-OP-M Strength Start: 08/22/20 08:57 Freq: Status: Active Protocol: Document 08/22/20 09:00 [facility] (Rec: 08/23/20 14:02 [facility] [email or web address]) Wrist Strength Wrist Manual Muscle Testing Left Flexion (C7) 4+ Good+ Extension (C6) 4+ Good+ Right Flexion (C7) 4 Good Extension (C6) 4 Good PT-OP-Q Treatments Start: 08/22/20 08:57 Freq: Status: Active Protocol: Document 01/09/21 14:30 [facility] (Rec: 01/17/21 14:13 [facility] [email or web address]) Manual Therapy Treatment Soft Tissue Mobilization piriformis release Body Location R Mobilization Type Instrument Assisted,Myofascial Release Intensity/Depth Moderate Body Position Sidelying Comments manual and supine on table instruction self STMs tennis vs racquetball sustained pressure supine MWM heel slide , hip abd manual QL release Body Location Right QL Mobilization Type Instrument Assisted,Myofascial Release Intensity/Depth Moderate Body Position Sidelying Comments pt in left sidelying pillows between BLEs Parascapulars and mid trap Body Location R parascapulars, mid/lower trap Mobilization Type Sustained Pressure,Trigger Point Release Intensity/Depth Moderate Body Position Supine suboccipital release Mobilization Type Myofascial Release,Sustained Pressure Comments manual sustained pressure cervical flex/ ext nods, then cervical rotation MWM w/ head not post right sided scanele and upper trapezius release Body Location scalenes, SCM, and upper trapezius right side Mobilization Type Myofascial Release,Strumming, Sustained Pressure,Trigger Point Release Intensity/Depth Moderate Body Position Supine Comments manual and self application pincer pressure/ knead SCM then CS rotation w/ head nods. PT-OP-R Modalities Start: 08/22/20 08:57 Freq: Status: Active Protocol: Document 08/24/20 12:59 [facility] (Rec: 08/24/20 13:00 [facility] [email or web address]) Ultrasound Therapy Treatment right upper trapezius Treatment Duration (minutes) 8 Patient Position Sidelying Coupling Medium Ultrasound Gel Applicator Size (cm2) 5 Mode Setting Continuous Duty Cycle 100% Intensity Setting (w/cm2) 1.5 PT-OP-T Assessment and Plan Start: 08/22/20 08:57 Freq: Status: Active Protocol: Document 01/09/21 14:30 [facility] (Rec: 01/17/21 14:13 [facility] [email or web address]) Physical Therapy Assessment Assessment Summary Assessment Lyndon continues to make progress and has been working on his stretches at home Physical Therapy Plan Frequency and Duration Frequency of Treatment 2x/Week Duration of Treatment 8 Plan of Care Start Date 12/07/20 Plan of Care End Date 02/08/21 Next Visit Focus/Plan Next Note Type Treatment Note Next Visit Plan continue to progress stretching at home and postural education to reduce forward head and shoulder posture.
--- NOTE | 2021-01-23 11:14 | PT.OTN ---
Current Diagnoses Other chronic pain (01/23/21) Cervicalgia (01/23/21) Low back pain (01/23/21) Physical Therapy Treatment Note PT-OP-A Visit Information Start: 08/22/20 08:57 Freq: Status: Active Protocol: Document 01/23/21 09:05 [facility] (Rec: 01/23/21 11:13 [facility] [email or web address]) Out-Patient Physical Therapy Visit Information Visit Information Visit Type Treatment Note Visit Start Time 09:05 Visit Stop Time 10:30 Total Visit Minutes 40 Visit Number 20 PT-OP-B Current Condition Start: 08/22/20 08:57 Freq: Status: Active Protocol: Document 08/22/20 09:01 [facility] (Rec: 08/22/20 09:13 [facility] [id number]) Current Condition History of Current Condition History of Current Condition history of chronic neck pain, right sided pain, pain goes down to the upper trapezius, pain is always there. Getting MRI as he has problems with numbness in his hands. He has to lay down to weight of his back. Laying down is the only thing that helps take the weight off his back. 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 Plays the [employer], right handed. Future Testing and Treatments Planned pt is sidebend right, herniated disc in the low back , did cortisone injection as he had sciatica on the left side, the injection helped but now he will have pain on the right side Treatment Goals Patient/Caregiver Goals Goals include avoiding surgery , pain management to be able to live with the pain comfortably and not be as limited as what he does. He wants to be able to kayak or canoe but feels he would pay the brito. PT-OP-C Subjective Start: 08/22/20 08:57 Freq: Status: Active Protocol: Document 01/23/21 09:05 [facility] (Rec: 01/23/21 11:13 [facility] [email or web address]) OP-PT Subjective Patient Comments Patient Comments pt reports he is still having numbness into his hands especially when he sleeps on his side but he is trying to change positions and work on his stretches Patient Questionnaires Neck Disability Index NDI Score 20/50 = 40% Neck Disability Index Impairment 40 to 59% Impaired (Score 20- 29) Oswestry Low Back Index Oswestry Score 21 Oswestry Impairment 20 to 39% Impaired (Score 20- 39) PT-OP-F Manual Assessment Start: 08/22/20 08:57 Freq: Status: Active Protocol: Document 08/22/20 09:00 [facility] (Rec: 08/23/20 14:01 [facility] [email or web address]) Manual Assessments Soft Tissue Assessment Soft Tissue Mobility Assessment tightness in the right scaneles, upper trapezius, SCM , pec minor Joint Mobility Assessment Joint Mobility Assessment decreased upper cervcial flexion PT-OP-J Posture/Palpation/Skin Start: 08/22/20 08:57 Freq: Status: Active Protocol: Document 10/03/20 16:22 [facility] (Rec: 10/03/20 16:24 [facility] [email or web address]) Palpation Assessment Location quadratus lumborum R Palpation Findings Soft Tissue Tightness,Muscle Guarding,Tenderness right piriformis Palpation Findings Soft Tissue Tightness,Spasm, Muscle Guarding right sacral ILB Palpation Findings Tenderness Palpation Details spasm of the piriformis attachments to the sacrum PT-OP-K Range of Motion Start: 08/22/20 08:57 Freq: Status: Active Protocol: Document 10/03/20 16:22 [facility] (Rec: 10/03/20 16:24 [facility] [email or web address]) Lumbar Spine Range of Motion Lumbar Spine Active Testing Position Standing Flexion 50 ROM Limitations Soft Tissue Tightness Hip Goniometric Range of Motion Hip ROM Limitations Hip ROM Limitations Soft Tissue Tightness Comments + john test Right SLR 45 R 60 L hip flexion limited to 100 degrees right 120 Left PT-OP-L Special Tests Start: 08/22/20 08:57 Freq: Status: Active Protocol: Document 08/22/20 09:00 [facility] (Rec: 08/24/20 12:52 [facility] [email or web address]) Special Tests Cervical Spine Special Tests Upper Limb Tension Test Test Results + B Comments median nerve bias PT-OP-M Strength Start: 08/22/20 08:57 Freq: Status: Active Protocol: Document 08/22/20 09:00 [facility] (Rec: 08/23/20 14:02 [facility] [email or web address]) Wrist Strength Wrist Manual Muscle Testing Left Flexion (C7) 4+ Good+ Extension (C6) 4+ Good+ Right Flexion (C7) 4 Good Extension (C6) 4 Good PT-OP-Q Treatments Start: 08/22/20 08:57 Freq: Status: Active Protocol: Document 01/23/21 09:05 [facility] (Rec: 01/23/21 11:13 [facility] [email or web address]) Manual Therapy Treatment Soft Tissue Mobilization piriformis release Body Location R Mobilization Type Instrument Assisted,Myofascial Release Intensity/Depth Moderate Body Position Sidelying Comments manual and supine on table instruction self STMs tennis vs racquetball sustained pressure supine MWM heel slide , hip abd manual QL release Body Location Right QL Mobilization Type Instrument Assisted,Myofascial Release Intensity/Depth Moderate Body Position Sidelying Comments pt in left sidelying pillows between BLEs Manual Techniques manual ITB stretch and release Body Location B ITB Body Position Supine PT-OP-R Modalities Start: 08/22/20 08:57 Freq: Status: Active Protocol: Document 08/24/20 12:59 [facility] (Rec: 08/24/20 13:00 [facility] [email or web address]) Ultrasound Therapy Treatment right upper trapezius Treatment Duration (minutes) 8 Patient Position Sidelying Coupling Medium Ultrasound Gel Applicator Size (cm2) 5 Mode Setting Continuous Duty Cycle 100% Intensity Setting (w/cm2) 1.5 PT-OP-T Assessment and Plan Start: 08/22/20 08:57 Freq: Status: Active Protocol: Document 01/23/21 09:05 [facility] (Rec: 01/23/21 11:13 [facility] [email or web address]) Physical Therapy Assessment Assessment Summary Assessment Lyndon continues to make progress and has been working on his stretches at home, I did recommend the [employer] balls for home as well. THis will most likely be his last visit due to his insurance coverage. Physical Therapy Plan Frequency and Duration Frequency of Treatment 2x/Week Duration of Treatment 8 Plan of Care Start Date 12/07/20 Plan of Care End Date 02/08/21 Therapeutic Interventions Therapeutic Interventions Home Exercise Program,Manual Therapy,Neuromuscular Re- education,Patient/Caregiver Education,Self-Care/Home Management,Soft Tissue Mobilization,Therapeutic Exercises Next Visit Focus/Plan Next Note Type Treatment Note Next Visit Plan review of HEP next visit if insurance allows a additional visit
== END 2021-03-13 08:42 ==
LOC: PHYS 09:00
PROVIDERS: PCP Family Medicine; Referring Provider Family Medicine; Visit Provider Family Medicine
DX: M54.2 Cervicalgia (principal); G89.29 Other chronic pain
CPT/HCPCS: 97035; 97110; 97140; 97161

== ENCOUNTER → 2021-03-15 08:59 | Outpatient (CLI) | payer OTHER, SELFPAY ==
[2021-03-15 09:43] LABS: Add Manual Diff / Slide Review NO; Basophils Absolute Auto 100 /uL (0-100); Basophils Percent Auto 1.1 % (0-2); Eosinophils Absolute Auto 100 /uL (0-450); Eosinophils Percent Auto 1.6 % (2-4); Hematocrit 43.3 % (41-53); Hemoglobin 15.3 g/dL (13.5-17.5); Lymphocytes Absolute Auto 1600 /uL (1100-4500); Lymphocytes Percent Auto 25.2 % (25-40); Mean Corpuscular HGB Conc 35.3 % (30-36); Mean Corpuscular Volume 90.5 fL (80-100); Monocytes Absolute Auto 500 /uL (0-900); Monocytes Percent Auto 8.5 % (3-14); Neutrophils Absolute Auto 4000 /uL (1500-7000); Neutrophils Percent Auto 63.6 % (50-75); Platelet Count 219 X10^3/uL (150-400); Red Blood Cell Count 4.79 X10^6/uL (4.5-5.9); Red Cell Distribution Width 13.9 % (11.6-14.8); White Blood Cell Count 6.2 X10^3/uL (4.5-11.0)
[2021-03-15 10:00] LABS: Alanine Aminotransferase 22 IU/L (<50); Albumin 4.4 g/dL (3.5-5.0); Albumin Globulin Ratio 1.6 (1.0-2.8); Alkaline Phosphatase 119 U/L (38-126); Aspartate Aminotransferase 31 IU/L (17-59); BUN Creatinine Ratio 10.4 (6-22); Bilirubin Total 0.5 mg/dL (0.2-1.3); Blood Urea Nitrogen 8 mg/dL (9-20); Calcium 9.8 mg/dL (8.4-10.2); Carbon Dioxide 27 mmol/L (22-32); Chloride 105 mmol/L (98-107); Cholesterol 233 mg/dL (140-199); Estimated Glomerular Filt Rate > 60.0 mL/min (>60); Globulin 2.8 g/dL (1.7-4.1); Glucose 101 mg/dL (80-110); HDL Cholesterol 46 mg/dL (40-60); HEMOLYSIS < 15 (0-50); LDL Cholesterol Calculated 167 mg/dL (<100); Potassium 4.4 mmol/L (3.4-5.1); Sodium 139 mmol/L (137-145); Total Protein 7.2 g/dL (6.3-8.2); Triglycerides 102 mg/dL (35-150)
[2021-03-15 10:28] LABS: TSH w/ Reflex to FT4 0.82 uIU/mL (0.47-4.68)
[2021-03-15 10:55] LABS: Creatinine Urine Random 75.9 mg/dL
[2021-03-15 11:00] LABS: Microalbumin Urine Random < 0.6 mg/dL (0-1.6)
== END ==
PROVIDERS: PCP Family Medicine; Referring Provider Family Medicine; Visit Provider Family Medicine
DX: E78.2 Mixed hyperlipidemia (principal); F10.20 Alcohol dependence, uncomplicated; I25.10 Atherosclerotic heart disease of native coronary artery without angina pectoris
CPT/HCPCS: 36415; 80053; 80061; 82043; 82570; 84443; 85025

== ENCOUNTER → 2021-07-16 07:51 | Outpatient (CLI) | payer OTHER, SELFPAY ==
[2021-07-16 08:56] LABS: Cholesterol 165 mg/dL (140-199); HDL Cholesterol 40 mg/dL (40-60); LDL Cholesterol Calculated 103 mg/dL (<100); Triglycerides 109 mg/dL (35-150)
== END ==
PROVIDERS: PCP Family Medicine; Referring Provider Family Medicine; Visit Provider Family Medicine
DX: E78.2 Mixed hyperlipidemia (principal); F17.200 Nicotine dependence, unspecified, uncomplicated; I25.10 Atherosclerotic heart disease of native coronary artery without angina pectoris; I73.9 Peripheral vascular disease, unspecified
CPT/HCPCS: 36415; 80061

== ENCOUNTER 2021-11-29 16:29 | Emergency (ER) | payer MEDICARE, SELFPAY ==
[2021-11-29] VITALS (14 sets, daily range): BP systolic 98–130; BP diastolic 55–83; PULSE 74–94; RESP 7–29; O2SAT 92–98; BMI 24.3
--- NOTE | 2021-11-29 16:34 | DI.RAD.S_ITS ---
PROCEDURE: XR CHEST 1V INDICATIONS: chest pain TECHNIQUE: One view of the chest was acquired. COMPARISON: [facility], CR, XR CHEST 1V, 12/05/2019, 4:47. [facility], CR, XR CHEST 2V, 01/29/2019, 13:19. FINDINGS: Surgical changes and devices: None. Lungs and pleura: Lungs are clear. No pleural effusions or pneumothorax. Mediastinum: Mediastinal contours appear unchanged. Heart size is normal. Bones and chest wall: No suspicious bony lesions. Overlying soft tissues appear unremarkable. IMPRESSION: No acute cardiopulmonary abnormality. Dictated by: Ruben Danielle M.D. on 11/29/2021 at 16:54 Approved by: Ruben Danielle M.D. on 11/29/2021 at 16:55
[2021-11-29] MEDS: ASPIRIN 81 MG CHEW TAB 324 MG PO (16:45)
[2021-11-29 16:55] LABS: Add Manual Diff / Slide Review NO; Basophils Absolute Auto 100 /uL (0-100); Basophils Percent Auto 0.8 % (0-2); Eosinophils Absolute Auto 100 /uL (0-450); Eosinophils Percent Auto 0.8 % (2-4); Hematocrit 43.5 % (41-53); Hemoglobin 14.8 g/dL (13.5-17.5); Lymphocytes Absolute Auto 3200 /uL (1100-4500); Lymphocytes Percent Auto 32.5 % (25-40); Mean Corpuscular HGB Conc 34.1 % (30-36); Mean Corpuscular Hemoglobin 31.4 PG (26-34); Mean Corpuscular Volume 91.9 fL (80-100); Monocytes Absolute Auto 1000 /uL (0-900); Monocytes Percent Auto 9.9 % (3-14); Neutrophils Absolute Auto 5400 /uL (1500-7000); Platelet Count 225 X10^3/uL (150-400); Red Blood Cell Count 4.73 X10^6/uL (4.5-5.9); White Blood Cell Count 9.7 X10^3/uL (4.5-11.0)
[2021-11-29 17:15] LABS: Alanine Aminotransferase 27 IU/L (<50); Albumin 4.4 g/dL (3.5-5.0); Albumin Globulin Ratio 1.5 (1.0-2.8); Alkaline Phosphatase 149 U/L (38-126); Aspartate Aminotransferase 30 IU/L (17-59); BUN Creatinine Ratio 13.3 (6-22); Bilirubin Total 0.5 mg/dL (0.2-1.3); Blood Urea Nitrogen 11 mg/dL (9-20); Calcium 9.1 mg/dL (8.4-10.2); Carbon Dioxide 23 mmol/L (22-32); Chloride 100 mmol/L (98-107); Creatine Kinase 143 U/L (55-170); Estimated Glomerular Filt Rate > 60 mL/min (>60); Globulin 2.9 g/dL (1.7-4.1); Glucose 103 mg/dL (80-110); HEMOLYSIS < 15 (0-50); Lipase 110 U/L (23-300); Magnesium 1.7 mg/dL (1.6-2.3); Potassium 4.1 mmol/L (3.4-5.1); Sodium 136 mmol/L (137-145); Total Protein 7.3 g/dL (6.3-8.2)
[2021-11-29 17:26] LABS: Troponin I 0.026 ng/mL (0.01-0.034)
[2021-11-29 17:30] LABS: CKMB % Relative Index 1.6 % (1.5-5.0); Creatine Kinase MB 2.27 ng/mL (<2.37)
--- NOTE | 2021-11-29 19:02 | ED_ITS ---
HPI - Chest Pain General Chief Complaint: Chest Pain Stated Complaint: chest pain Time Seen by Provider: 11/29/21 18:16 Source: patient Mode of arrival: Wheelchair Limitations: no limitations Limitations: no limitations History of Present Illness HPI narrative: Patient is a 66-year-old male. History of coronary artery disease. Had a heart attack with stent placement approximately 10 years ago. Does see Cardiology but has not seen them in the past couple years. 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 He states he was moving a door when he had a fairly sudden onset of left-sided chest discomfort that radiated to his back. Lasted a couple hours and then completely resolved. He stated that it felt very similar to when he had his prior heart attack although it did not last as long. At the time of my evaluation he had already received aspirin in triage. He is currently asymptomatic. He did have symptoms similar to this a couple weeks ago but it was for a very short period of time and was not as strong as what it was today. Related Data Home Medications Medication Instructions Recorded Confirmed aspirin 81 mg tablet,delayed 81 mg PO DAILY 09/10/17 07/17/21 release (Adult Low Dose Aspirin) acetaminophen 325 mg tablet 650 mg PO QID PRN 05/30/20 07/17/21 (Tylenol) ibuprofen 200 mg tablet 400 mg PO BID PRN 05/30/20 07/17/21 multivitamin 1 tab PO DAILY 05/30/20 07/17/21 Previous Rx's Medication Instructions Recorded atorvastatin 80 mg tablet (Lipitor) 80 mg PO DAILY Hyperlipidemia #90 07/17/21 tabs nortriptyline 25 mg capsule 25 mg PO BEDTIME #30 caps 07/17/21 Allergies Allergy/AdvReac Type Severity Reaction Status Date / Time No Known Drug Allergies Allergy Verified 07/17/21 08:35 Review of Systems Review of Systems ROS Unobtainable: All systems reviewed & are unremarkable except as noted in HPI and below Patient History Medical History Alcoholism Bilateral hand pain CAD (coronary artery disease) Chicken pox (1966) Chronic hand pain Chronic neck pain (1999) Heart attack (2008) Measles (~1970) Rheumatoid arthritis Shoulder pain Trigger finger, right little finger (04/2020) Surgical History Anesthesia History of heart artery stent (2009) Status post rotator cuff repair Family History Mother Age: 95 Heart attack Brother No problems noted. Father Cancer Sister No problems noted. Social History household members: spouse Smoking Status: Current every day smoker alcohol intake: current Smoking Status: Current every day smoker alcohol intake frequency: 3 or more drinks per day Substance Use Type: does not use Exam Initial Vital Signs Initial Vital Signs: Vital Signs Pulse Rate 88 11/29/21 16:34 Respiratory Rate 16 11/29/21 16:34 Blood Pressure 130/83 11/29/21 16:34 Pulse Oximetry 97 11/29/21 16:34 Oxygen Delivery Method 11/29/21 16:34 Const General: cooperative, comfortable and No ill appearing HENMT Head: normal to inspection and normocephalic Resp Effort & Inspection: normal respiratory effort Auscultation: clear to auscultation bilaterally Cardio Rate: regular rate Rhythm: regular rhythm GI Inspection: normal to inspection Skin General: no rashes or lesions noted Neuro General: patient alert, patient awake, patient oriented x3 and moves all extremities Cognition: normal cognition Speech: speech normal Extrem General: normal to inspection, capillary refill normal and No edema Psych Appearance: grossly normal and well kempt Course Orders Ordered: ED Orders 11/29/21 16:34 XR chest 1V Stat 11/29/21 16:40 Complete Blood Count AUTO DIFF Stat Comprehensive Metabolic Panel Stat Lipase Stat Magnesium Stat Partial Thromboplastin Time Stat Prothrombin Time INR Stat Troponin & CK Cardiac Panel Stat EKG-12 Lead Stat 11/29/21 19:45 Troponin & CK Cardiac Panel Stat 11/29/21 20:40 COVID19 -Nasal RAPID/Pre-Proc Stat 11/30/21 02:48 PTT [Partial Thromboplastin Time] Stat Heparin Sodium/Dextrose (Heparin Drip) 25,000 unit in 500 mls @ 16.874 mls/hr IV CONT TRES; Protocol Last Admin: 11/29/21 20:48 Dose: 12 units/kg/hr, 16.874 mls/hr Documented By: ABDOUL Discontinued Medications Aspirin (Aspirin 81 Mg Chew Tab) 324 mg PO NOW ONE Stop: 11/29/21 16:44 Last Admin: 11/29/21 16:45 Dose: 324 mg Documented By: HINA Atorvastatin Calcium (Atorvastatin 20 Mg Tablet) 80 mg PO NOW ONE Stop: 11/29/21 21:33 Last Admin: 11/29/21 22:32 Dose: 80 mg Documented By: ABDOUL Heparin Sodium (Porcine) (Heparin 5,000 Unit/Ml Vial) 4,000 unit IV NOW ONE Stop: 11/29/21 20:25 Last Admin: 11/29/21 20:40 Dose: 4,000 unit Documented By: ABDOUL Nicotine (Nicotine 21 Mg Patch) 21 mg TOP NOW ONE Stop: 11/29/21 21:56 Last Admin: 11/29/21 22:31 Dose: 21 mg Documented By: ABDOUL Vital Signs Vital signs: Vital Signs - 8 hr 11/29/21 16:34 11/29/21 18:56 11/29/21 18:58 Pulse Rate 88 86 Respiratory Rate 16 Blood Pressure 130/83 120/83 Pulse Oximetry 97 Oxygen Delivery Method Room Air 11/29/21 18:58 11/29/21 19:00 11/29/21 19:00 Pulse Rate 86 85 Respiratory Rate 10 L 14 Blood Pressure 118/78 Pulse Oximetry 98 97 Oxygen Delivery Method 11/29/21 19:30 11/29/21 19:30 11/29/21 20:00 Pulse Rate 80 Respiratory Rate 7 L Blood Pressure 116/73 126/80 Pulse Oximetry 95 Oxygen Delivery Method 11/29/21 20:00 11/29/21 20:30 11/29/21 20:30 Pulse Rate 80 81 Respiratory Rate 11 L 8 L Blood Pressure 125/82 Pulse Oximetry 95 97 Oxygen Delivery Method 11/29/21 21:00 11/29/21 21:00 11/29/21 21:35 Pulse Rate 78 94 H Respiratory Rate 12 29 H Blood Pressure 120/72 Pulse Oximetry 96 92 Oxygen Delivery Method Room Air 11/29/21 21:36 11/29/21 21:36 11/29/21 22:00 Pulse Rate 87 Respiratory Rate 28 H Blood Pressure 119/73 98/55 L Pulse Oximetry 98 Oxygen Delivery Method Room Air 11/29/21 22:00 11/29/21 22:29 11/29/21 22:30 Pulse Rate 74 77 Respiratory Rate 14 18 Blood Pressure 113/72 Pulse Oximetry 95 96 Oxygen Delivery Method MDM - Chest Pain Lab Data Attestation: I reviewed the patient's lab results. Result diagrams: 11/29/21 16:40 11/29/21 16:40 Labs: Lab Results 11/29/21 11/29/21 11/29/21 Range/Units 16:40 16:40 16:40 WBC 9.7 (4.5-11.0) X10^3/uL RBC 4.73 (4.5-5.9) X10^6/uL Hgb 14.8 (13.5-17.5) g/dL Hct 43.5 (41-53) % MCV 91.9 (80-100) fL MCH 31.4 (26-34) PG MCHC 34.1 (30-36) % RDW 14.0 (11.6-14.8) % Plt Count 225 (150-400) X10^3/uL Neut % (Auto) 56.0 (50-75) % Lymph % (Auto) 32.5 (25-40) % [place] % (Auto) 9.9 (3-14) % Eos % (Auto) 0.8 L (2-4) % Baso % (Auto) 0.8 (0-2) % Neut # (Auto) 5400 (8673-9484) /uL Lymph # (Auto) 3200 (4759-1549) /uL [place] # (Auto) 1000 H (0-900) /uL Eos # (Auto) 100 (0-450) /uL Baso # (Auto) 100 (0-100) /uL PT 11.3 (10.1-12.7) SECONDS INR 1.0 (0.9-1.3) APTT 29 (26-36) SECONDS Sodium 136 L (137-145) mmol/L Potassium 4.1 (3.4-5.1) mmol/L Chloride 100 (98-107) mmol/L Carbon Dioxide 23 (22-32) mmol/L BUN 11 (9-20) mg/dL Creatinine 0.83 (0.66-1.25) mg/dL Estimated GFR > 60 (>60) mL/min BUN/Creatinine Ratio 13.3 (6-22) Glucose 103 (80-110) mg/dL Calcium 9.1 (8.4-10.2) mg/dL Magnesium 1.7 (1.6-2.3) mg/dL Total Bilirubin 0.5 (0.2-1.3) mg/dL AST 30 (17-59) IU/L ALT 27 (<50) IU/L Alkaline Phosphatase 149 H (38-126) U/L Total Creatine Kinase 143 (55-170) U/L CK-MB (CK-2) 2.27 (<2.37) ng/mL CK-MB (CK-2) Rel Index 1.6 (1.5-5.0) % Troponin I 0.026 (0.01-0.034) ng/mL Total Protein 7.3 (6.3-8.2) g/dL Albumin 4.4 (3.5-5.0) g/dL Globulin 2.9 (1.7-4.1) g/dL Albumin/Globulin Ratio 1.5 (1.0-2.8) Lipase 110 (23-300) U/L SARS-CoV-2 (PCR) (Negative) 11/29/21 11/29/21 Range/Units 19:45 20:40 WBC (4.5-11.0) X10^3/uL RBC (4.5-5.9) X10^6/uL Hgb (13.5-17.5) g/dL Hct (41-53) % MCV (80-100) fL MCH (26-34) PG MCHC (30-36) % RDW (11.6-14.8) % Plt Count (150-400) X10^3/uL Neut % (Auto) (50-75) % Lymph % (Auto) (25-40) % [place] % (Auto) (3-14) % Eos % (Auto) (2-4) % Baso % (Auto) (0-2) % Neut # (Auto) (8210-6006) /uL Lymph # (Auto) (2661-7431) /uL [place] # (Auto) (0-900) /uL Eos # (Auto) (0-450) /uL Baso # (Auto) (0-100) /uL PT (10.1-12.7) SECONDS INR (0.9-1.3) APTT (26-36) SECONDS Sodium (137-145) mmol/L Potassium (3.4-5.1) mmol/L Chloride (98-107) mmol/L Carbon Dioxide (22-32) mmol/L BUN (9-20) mg/dL Creatinine (0.66-1.25) mg/dL Estimated GFR (>60) mL/min BUN/Creatinine Ratio (6-22) Glucose (80-110) mg/dL Calcium (8.4-10.2) mg/dL Magnesium (1.6-2.3) mg/dL Total Bilirubin (0.2-1.3) mg/dL AST (17-59) IU/L ALT (<50) IU/L Alkaline Phosphatase (38-126) U/L Total Creatine Kinase 179 H (55-170) U/L CK-MB (CK-2) 8.88 H D (<2.37) ng/mL CK-MB (CK-2) Rel Index 5.0 (1.5-5.0) % Troponin I 1.710 H* (0.01-0.034) ng/mL Total Protein (6.3-8.2) g/dL Albumin (3.5-5.0) g/dL Globulin (1.7-4.1) g/dL Albumin/Globulin Ratio (1.0-2.8) Lipase (23-300) U/L SARS-CoV-2 (PCR) Negative (Negative) Imaging Data Chest x-ray: Radiologist's Impression: [address] [address] XRay Report Signed Patient: Lyndon Antonio MR#: [id number] : 1955 Acct:[id number] Age/Sex: 66 / M Date of Service: 11/29/21 Loc: ED Accession Number: [id number] ?? Procedure: XR chest 1V Ordering Provider: Ara Pedroza D.O. PROCEDURE:? XR CHEST 1V ? INDICATIONS:? chest pain ? TECHNIQUE:? One view of the chest was acquired.? ? COMPARISON:? [facility], CR, XR CHEST 1V, 12/05/2019, 4:47.? [facility], CR, XR CHEST 2V, 01/29/2019, 13:19. ? FINDINGS:? ? Surgical changes and devices:? None.? ? Lungs and pleura:? Lungs are clear.? No pleural effusions or pneumothorax.? ? Mediastinum:? Mediastinal contours appear unchanged.? Heart size is normal.? ? Bones and chest wall:? No suspicious bony lesions.? Overlying soft tissues appear unremarkable.? ? IMPRESSION:? No acute cardiopulmonary abnormality. ? ? ? Dictated by: Ruben Danielle M.D. on 11/29/2021 at 16:54 ? ? Approved by: Ruben Danielle M.D. on 11/29/2021 at 16:55?? ECG Data Attestation: I personally reviewed and interpreted this ECG as follows: Interpretation: Sinus rhythm Ventricular rate 89 First-degree AV block the MT interval 214 milliseconds Normal axis Normal QRS No ST T wave changes MDM Narrative Medical decision making narrative: Patient did receive aspirin in triage prior to my evaluation. He has been asymptomatic. Heart rate and blood pressure unremarkable. Initial troponin negative. 2 hour repeat positive. He was started on heparin. Discussed the case with Cardiology at [facility] in [place]. I then discussed the case with Dr. Lemons hospitalist at [place] who accepts the patient however I was asked to put Dr. Cardona did discuss the need for transport with the patient. He is currently stable for transport. Discharge Plan Departure Patient Disposition: [facility] Clinical Impression: Non-ST elevation PA (NSTEMI) Prescriptions: No Action aspirin [Adult Low Dose Aspirin] 81 mg tablet,delayed release (DR/EC) 81 mg PO DAILY multivitamin Tablet 1 tab PO DAILY ibuprofen 200 mg tablet 400 mg PO BID PRN acetaminophen [Tylenol] 325 mg tablet 650 mg PO QID PRN atorvastatin [Lipitor] 80 mg tablet 80 mg PO DAILY Qty: 90 3RF nortriptyline 25 mg capsule 25 mg PO BEDTIME Qty: 30 0RF Referrals: Pedro Mcbride MD [Primary Care Provider] -
--- NOTE | 2021-11-29 19:46 | PC.NURSE ---
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 Patient states he has had similar episodes he has ignored in the past but remind him of his previous heart attack. Patient denies pain at presents just feels fatigued
[2021-11-29 20:06] LABS: Creatine Kinase 179 U/L (55-170)
[2021-11-29 20:22] LABS: Creatine Kinase MB 8.88 ng/mL (<2.37)
[2021-11-29 20:37] LABS: Prothrombin Time 11.3 SECONDS (10.1-12.7)
[2021-11-29 20:39] LABS: PTT Partial Thromboplastin Tim 29 SECONDS (26-36)
[2021-11-29] MEDS: HEPARIN 5,000 UNIT/ML VIAL 4000 UNIT IV (20:40)
[2021-11-29] MEDS: HEPARIN DRIP 25,000 UNIT/500 ML IV.SOLN 16.874 UNIT IV (20:48)
[2021-11-29 22:00] LABS: COVID19 -Nasal RAPID Negative (Negative)
[2021-11-29] MEDS: NICOTINE 21 MG PATCH TOP (22:31)
[2021-11-29] MEDS: ATORVASTATIN 20 MG TABLET 80 MG PO (22:32)
--- NOTE | 2021-11-29 23:14 | PC.NURSE ---
Report given to Inocencia FORDE with [facility].
== END 2021-11-29 23:13 | disposition short-term general hospital (02) ==
PROVIDERS: Emergency Medicine; Emergency Provider Emergency Medicine; PCP Family Medicine
DX: I21.4 Non-ST elevation (NSTEMI) myocardial infarction (principal); I25.10 Atherosclerotic heart disease of native coronary artery without angina pectoris; I25.2 Old myocardial infarction; Z20.822 Contact with and (suspected) exposure to COVID-19
CPT/HCPCS: 36415; 71045; 80053; 82550; 82553; 83690; 83735; 84484; 85025; 85610; 85730; 87635; 93005; 93010; 96365; 96366; 96375; 99284; C9803; J1644

== ENCOUNTER 2022-04-01 10:15 | Outpatient (RCR) | payer MEDICARE, OTHER, SELFPAY | END 2022-04-01 12:15 | LOC: CAR 10:15 | PROVIDERS: PCP Family Medicine; Referring Provider Thoracic Surgery (Cardiothoracic Vascular Surgery); Visit Provider Thoracic Surgery (Cardiothoracic Vascular Surgery) | DX: Z95.1 Presence of aortocoronary bypass graft (principal) | CPT/HCPCS: 93798 ==

== ENCOUNTER → 2022-07-10 07:56 | Outpatient (CLI) | payer MEDICARE, OTHER, SELFPAY ==
[2022-07-10 08:45] LABS: Add Manual Diff / Slide Review NO; Basophils Absolute Auto 100 /uL (0-100); Basophils Percent Auto 0.7 % (0-2); Eosinophils Absolute Auto 100 /uL (0-450); Eosinophils Percent Auto 0.8 % (2-4); Hematocrit 46.3 % (41-53); Lymphocytes Absolute Auto 2000 /uL (1100-4500); Lymphocytes Percent Auto 24.6 % (25-40); Mean Corpuscular HGB Conc 34.6 % (30-36); Mean Corpuscular Hemoglobin 32.5 PG (26-34); Mean Corpuscular Volume 93.9 fL (80-100); Monocytes Absolute Auto 700 /uL (0-900); Monocytes Percent Auto 8.3 % (3-14); Neutrophils Absolute Auto 5300 /uL (1500-7000); Neutrophils Percent Auto 65.6 % (50-75); Platelet Count 249 X10^3/uL (150-400); Red Blood Cell Count 4.92 X10^6/uL (4.5-5.9); Red Cell Distribution Width 14.2 % (11.6-14.8); White Blood Cell Count 8.1 X10^3/uL (4.5-11.0)
[2022-07-10 09:11] LABS: Alanine Aminotransferase 31 IU/L (<50); Albumin 4.7 g/dL (3.5-5.0); Albumin Globulin Ratio 1.8 (1.0-2.8); Alkaline Phosphatase 119 U/L (38-126); Aspartate Aminotransferase 30 IU/L (17-59); BUN Creatinine Ratio 13.8 (6-22); Bilirubin Total 0.6 mg/dL (0.2-1.3); Blood Urea Nitrogen 9 mg/dL (9-20); Calcium 9.9 mg/dL (8.4-10.2); Carbon Dioxide 27 mmol/L (22-32); Chloride 99 mmol/L (98-107); Cholesterol 150 mg/dL (140-199); Estimated Glomerular Filt Rate > 60 mL/min (>60); Globulin 2.6 g/dL (1.7-4.1); Glucose 96 mg/dL (80-110); HDL Cholesterol 48 mg/dL (40-60); HEMOLYSIS < 15 (0-50); LDL Cholesterol Calculated 82 mg/dL (<100); Potassium 4.5 mmol/L (3.4-5.1); Sodium 135 mmol/L (137-145); Total Protein 7.3 g/dL (6.3-8.2); Triglycerides 100 mg/dL (35-150)
== END ==
PROVIDERS: PCP Family Medicine; Referring Provider Family Medicine; Visit Provider Family Medicine
DX: E78.2 Mixed hyperlipidemia (principal); I25.10 Atherosclerotic heart disease of native coronary artery without angina pectoris; K21.9 Gastro-esophageal reflux disease without esophagitis; M06.9 Rheumatoid arthritis, unspecified
CPT/HCPCS: 36415; 80053; 80061; 85025

== ENCOUNTER → 2022-07-11 10:33 | Outpatient (CLI) | payer MEDICARE, OTHER, SELFPAY ==
[2022-07-12 19:01] LABS: Fecal Immunochemical Test Negative (Negative)
== END ==
PROVIDERS: PCP Family Medicine; Referring Provider Family Medicine; Visit Provider Family Medicine
DX: Z12.11 Encounter for screening for malignant neoplasm of colon (principal)
CPT/HCPCS: 82274

== ENCOUNTER → 2022-08-14 09:19 | Outpatient (CLI) | payer MEDICARE, OTHER, SELFPAY | PROVIDERS: PCP Family Medicine; Visit Provider Nurse Practitioner Family | DX: R30.0 Dysuria (principal) | CPT/HCPCS: 87077; 87086; 87186 ==

== ENCOUNTER → 2022-10-08 08:37 | Outpatient (CLI) | payer MEDICARE, OTHER, SELFPAY ==
[2022-10-08 10:46] LABS: Prostate Specific Antigen 0.603 ng/mL (0.10-4.00)
== END ==
PROVIDERS: PCP Family Medicine; Referring Provider Specialist; Visit Provider Specialist
DX: N40.1 Benign prostatic hyperplasia with lower urinary tract symptoms (principal); N13.8 Other obstructive and reflux uropathy
CPT/HCPCS: 36415; 84153

== ENCOUNTER → 2022-10-09 10:01 | Outpatient (CLI) | payer MEDICARE, OTHER, SELFPAY | PROVIDERS: PCP Family Medicine; Visit Provider Specialist | DX: N40.1 Benign prostatic hyperplasia with lower urinary tract symptoms (principal); N13.8 Other obstructive and reflux uropathy; R33.9 Retention of urine, unspecified; R31.9 Hematuria, unspecified; N52.9 Male erectile dysfunction, unspecified | CPT/HCPCS: 51798; 81002; 87086; 99215 ==

== ENCOUNTER → 2022-10-24 09:54 | Outpatient (CLI) | payer MEDICARE, OTHER, SELFPAY ==
[2022-10-24 11:19] LABS: BUN Creatinine Ratio 10.3 (6-22); Blood Urea Nitrogen 7 mg/dL (9-20); Calcium 9.5 mg/dL (8.4-10.2); Carbon Dioxide 22 mmol/L (22-32); Chloride 99 mmol/L (98-107); Estimated Glomerular Filt Rate > 60 mL/min (>60); Glucose 123 mg/dL (80-110); HEMOLYSIS < 15 (0-50); Potassium 4.6 mmol/L (3.4-5.1); Sodium 132 mmol/L (137-145)
== END ==
PROVIDERS: PCP Family Medicine; Referring Provider Specialist; Visit Provider Specialist
DX: Z01.812 Encounter for preprocedural laboratory examination (principal)
CPT/HCPCS: 36415; 80048

== ENCOUNTER → 2022-11-28 13:00 | Outpatient (CLI) | payer MEDICARE, OTHER, SELFPAY ==
--- NOTE | 2022-11-28 13:02 | DI.CT.S_ITS ---
PROCEDURE: CT IVP A/P W/WO INDICATIONS: hematuria, smoker TECHNIQUE: Optional 5 mm thick noncontrast images acquired from the diaphragm to the symphysis pubis. After the administration of intravenous contrast, 5 mm thick images acquired from the diaphragm to the symphysis pubis after a 10-minute delay. 2 mm thick coronal and sagittal reformats were then performed of the kidneys and ureters. For radiation dose reduction, the following was used: automated exposure control, adjustment of mA and/or kV according to patient size. COMPARISON: [facility], CT, CHEST ABDOMEN PELVIS WITH CONTRAST, 10/17/2010, 9:18. FINDINGS: Image quality: Excellent. Lung bases: Lung bases are clear. Heart size is normal. Severe coronary artery calcifications. Remote CABG. Urinary system: Both kidneys are normal in size, without hydronephrosis or nephrolithiasis on pre-contrast images. No perinephric fat stranding. There is normal bilateral renal enhancement. Renal calyces appear normal in morphology when filled with contrast. Opacified portions of both ureters demonstrate normal caliber. Enlarged prostate. Diffuse bladder wall thickening. No focal suspicious bladder masses. No calcified bladder stones. Other solid organs: Liver is norm history are al in size and enhancement. Gallbladder is unremarkable without calcified gallstones . Biliary system is non dilated. Pancreas enhances normally. Spleen is normal in size and enhancement. No adrenal nodules. Peritoneum and bowel: Bowel loops demonstrate normal wall thickness and caliber. No free fluid or air. Diverticulosis without evidence of diverticulitis. Normal appendix. Nodes and vessels: No retroperitoneal or mesenteric adenopathy by size criteria. Aorta and inferior vena cava are normal in size. Extensive aortoiliac calcifications. Left iliac stent. Abdominal wall: No ventral hernias. Pelvis: No pathologic free pelvic fluid. Fat containing left inguinal hernia. No inguinal adenopathy. Bones: No suspicious bony lesions. No vertebral body compression fractures. IMPRESSION: 1 800 no renal stones, ureteral stones, hydronephrosis, or findings suspicious for malignancy. 2. Enlarged prostate, diffuse bladder wall thickening. 3. Severe coronary artery calcifications, remote CABG. Dictated by: Jaron Larsen M.D. on 11/28/2022 at 18:08 Approved by: Jaron Larsen M.D. on 11/28/2022 at 18:16
== END ==
PROVIDERS: PCP Family Medicine; Referring Provider Specialist; Visit Provider Specialist
DX: R31.9 Hematuria, unspecified (principal); F17.200 Nicotine dependence, unspecified, uncomplicated; N40.0 Benign prostatic hyperplasia without lower urinary tract symptoms; I25.10 Atherosclerotic heart disease of native coronary artery without angina pectoris; Z95.1 Presence of aortocoronary bypass graft
CPT/HCPCS: 74178; Q9967

== ENCOUNTER → 2023-02-08 10:18 | Outpatient (CLI) | payer MEDICARE, OTHER, SELFPAY ==
--- NOTE | 2023-02-08 10:21 | DI.RAD.S_ITS ---
PROCEDURE: XR LUMBAR SPINE 2-3V INDICATIONS: left hip/LBP, diff bearing weight TECHNIQUE: 3 views of the lumbar spine were acquired. COMPARISON: [facility], CT, CT IVP A/P W/WO, 11/28/2022, 13:10. FINDINGS: Bones: Mild degenerative changes. Vertebral body heights are well maintained. No traumatic subluxation. Soft tissues: Pelvic hyperdensities, location indeterminate. Partially seen hip degenerative changes. IMPRESSION: No acute vertebral body fracture or traumatic subluxation. If there is high concern for further derangement, consider MRI evaluation. Dictated by: Tin Cheng M.D. on 02/08/2023 at 10:51 Approved by: Tin Cheng M.D. on 02/08/2023 at 10:53
== END ==
LOC: RAD 10:20
PROVIDERS: PCP Family Medicine; Referring Provider Student in an Organized Health Care Education/Training Program; Visit Provider Student in an Organized Health Care Education/Training Program
DX: M54.42 Lumbago with sciatica, left side (principal); M25.552 Pain in left hip
CPT/HCPCS: 72100

== ENCOUNTER 2023-02-08 10:45 | Emergency (ER) | payer MEDICARE, OTHER, SELFPAY ==
[2023-02-08 11:01] VITALS: BP 125/65; PULSE 63; RESP 18; TEMP 36.2; O2SAT 99; BMI 23.5
--- NOTE | 2023-02-08 11:13 | ED.BACK ---
HPI - Back Pain/Injury General Chief Complaint: Back Pain/Injury Stated Complaint: [facility] has order Xray/ pain prevented Time Seen by Provider: 02/08/23 11:07 Source: patient History of Present Illness HPI Narrative: This is a 67-year-old male presents to the emergency department due to left hip pain onset about a week ago after bending too far over. He does not report any acute trauma to the left hip. No recent falls or any other injuries to the left hip. Denies any urinary or bowel incontinence, saddle paresthesias, fevers, or any other concerning signs or symptoms. Related Data Home Medications Medication Instructions Recorded Confirmed aspirin 81 mg tablet,delayed 81 mg PO DAILY 09/10/17 02/08/23 release (Adult Low Dose Aspirin) acetaminophen 325 mg tablet 650 mg PO QID PRN 05/30/20 02/08/23 (Tylenol) pentoxifylline 400 mg 400 mg PO TID 07/11/22 02/08/23 tablet,extended release Previous Rx's Medication Instructions Recorded atorvastatin 80 mg tablet (Lipitor) 80 mg PO DAILY Hyperlipidemia #90 07/11/22 tabs metoprolol tartrate 25 mg tablet See Rx Instructions .Route 07/11/22 .COMPLEX #180 tabs nicotine 7 mg/24 hr daily 1 patch transdermal Q24H #28 ea 07/11/22 transdermal patch tramadol 50 mg tablet 50 mg PO BID PRN pain #30 tabs 07/11/22 tamsulosin 0.4 mg capsule 0.4 mg PO BEDTIME #90 caps 08/27/22 tadalafil 2.5 mg tablet (Cialis) 2.5 mg PO DAILY #90 tabs 10/09/22 cyclobenzaprine 10 mg tablet 10 mg PO TID PRN muscle spasm #30 02/08/23 tabs Allergies Allergy/AdvReac Type Severity Reaction Status Date / Time No Known Drug Allergies Allergy Verified 02/08/23 11:01 Review of Systems Review of Systems Narrative: GENERAL: Denies chills, fatigue, malaise, fever, sweats. HEENT: Denies sinus pain, ear pain, sore throat, difficulty swallowing, dizziness. RESPIRATORY: Denies dyspnea, cough, wheezing, hemoptysis, sputum. CARDIOVASCULAR: Denies chest pain, palpitations, orthopnea, edema, GASTROINTESTINAL: Denies nausea, vomiting, abdominal pain, diarrhea, constipation, melena. : Denies dysuria, frequency, incontinence, hematuria, urinary retention. MUSCULOSKELETAL: Reports left hip pain SKIN: Denies rash, skin lesions, or other NEUROLOGIC: Denies weakness, headache, numbness, change in speech, confusion, seizures, incoordination. PSYCHIATRIC: No concerning psychosocial issues. 12 point review of systems is negative except for those stated above Patient History Medical History (Updated 02/08/23 @ 13:14 by Pierre Maurice PA-C) Erectile dysfunction Hematuria Incomplete bladder emptying BPH w urinary obs/LUTS UTI (urinary tract infection) Bilateral hand pain Chronic hand pain Trigger finger, right little finger (04/2020) Chronic neck pain (1999) Rheumatoid arthritis Alcoholism Heart attack (2008) CAD (coronary artery disease) Chicken pox (1966) Measles (~1970) Shoulder pain Surgical History Hx of CABG History of heart artery stent (2008) Anesthesia Status post rotator cuff repair Family History Mother Age: 96 Heart attack Hyperlipidemia Brother No problems noted. Father Cancer Sister No problems noted. Social History marital status: number of children: 0 household members: spouse Smoking Status: Current every day smoker quit status: considering quitting alcohol intake: current Type(s) of exercise: walking frequency: 3-4 times per week Smoking Status: Current every day smoker alcohol intake frequency: 3 or more drinks per day Substance Use Type: does not use Exam Narrative Exam Narrative: GENERAL: Well-developed patient, in mild distress. HEAD: Atraumatic. Normocephalic. EYES: Pupils equal round and reactive. Extraocular motions intact. No scleral icterus. No injection or drainage. ENT: Nose without bleeding, purulent drainage. Throat without erythema, tonsillar hypertrophy or exudate. Airway patent. NECK: Trachea midline. Non tender CARDIOVASCULAR: Regular rate and rhythm without murmurs, gallops, or rubs. RESPIRATORY: Clear to auscultation. Breath sounds equal bilaterally. No wheezes, rales, or rhonchi. GASTROINTESTINAL: Abdomen soft, non-tender, nondistended. EXTREMITIES: Tenderness to palpation to the left lateral hip BACK: Nontender without deformity or crepitance. No flank tenderness. NEURO: AOx3. SKIN: No rash or erythema of visible areas Initial Vital Signs Initial Vital Signs: Vital Signs Temperature 97.1 F L 02/08/23 11:01 Pulse Rate 63 02/08/23 11:01 Respiratory Rate 18 02/08/23 11:01 Blood Pressure 125/65 02/08/23 11:01 Pulse Oximetry 99 02/08/23 11:01 Oxygen Delivery Method Room Air 02/08/23 11:01 Course Orders Ordered: ED Orders 02/08/23 11:20 XR hip w pel if done LT 2V Stat Discontinued Medications Cyclobenzaprine HCl (Cyclobenzaprine 10 Mg Tablet) 10 mg PO NOW ONE Stop: 02/08/23 11:20 Last Admin: 02/08/23 11:27 Dose: 10 mg Ketorolac Tromethamine (Ketorolac 30 Mg/Ml Vial) 15 mg IM NOW ONE Stop: 02/08/23 11:20 Last Admin: 02/08/23 11:28 Dose: 15 mg Vital Signs Vital signs: Vital Signs - 8 hr 02/08/23 11:01 02/08/23 13:06 Temperature 97.1 F L 98.0 F Pulse Rate 63 60 Respiratory Rate 18 18 Blood Pressure 125/65 141/69 H Pulse Oximetry 99 98 Oxygen Delivery Method Room Air Room Air MDM - Back Pain/Injury Imaging Data Extremity x-ray #1: Radiologist's Impression: [address] [address] XRay Report Signed Patient: Lyndon Antonio MR#: [id number] : 1955 Acct:[id number] Age/Sex: 67 / M Date of Service: 02/08/23 Loc: ED Accession Number: [id number] Procedure: XR hip w pel if done LT 2V Ordering Provider: Pierre Maurice P.A-C PROCEDURE: XR HIP W PEL IF DONE LT 2V INDICATIONS: L hip pain TECHNIQUE: 2 views of the hip were acquired. COMPARISON: [facility], CT, CT IVP A/P W/WO, 11/28/2022, 13:10. FINDINGS: Bones: [id number] bilateral hip arthrosis. No displaced fracture or dislocation. Lumbosacral spondylosis. Possible right calcific tendinopathy. Soft tissues: Postsurgical sequelae. Vascular calcifications. IMPRESSION: No acute radiographic abnormality. [id number] degenerative changes. If there is high concern for further derangement, consider CT or MRI evaluation. Dictated by: Tin Cheng M.D. on 02/08/2023 at 13:00 Approved by: Tin Cheng M.D. on 02/08/2023 at 13:02 [facility] Narrative Medical decision making narrative: MDM * differential diagnosis includes but not limited to muscular strain * Prior records reviewed: Patient was seen at the walk-in clinic just prior to arrival for left-sided sciatica for the last week. History of chronic neck pain, rheumatoid arthritis. Lumbar x-ray was unremarkable. * My lab interpretation: None obtained * My imgaing interpretation: Lumbar x-ray and hip x-ray unremarkable for acute changes. * Clinical Decision Rules/Scores evaluated: None * Independent discussions with: None ED Course: This is a 67-year-old male presents to the emergency department due to suspected lumbosacral strain. He was not present with any red flag symptoms. Lumbar x-rays ordered by the walk-in clinic which were unremarkable. Patient was also advised to obtain a left hip x-ray will be ordered and was negative. We will treat with supportive care. Walk-in clinic prescribed steroids. We will add muscle relaxants. Shared Decision Making: Discussed plan with the patient who is comfortable with the plan Social Considerations: None Disposition: Discharged to home Discharge Plan Departure Patient Disposition: Home Clinical Impression: Strain of lumbar region Instructions: DI for Back Strain or Sprain Activity Restrictions/Additional Instructions: Thank you for coming to the [facility] Emergency Department today. As we discussed your lumbar x-ray and left hip x-ray showed no acute bony changes. I suspect this is muscular in nature. You may take the steroids prescribed by your walk-in clinic. We will also add muscle relaxants. You may use ibuprofen and Tylenol as well as slight stretching as well to help with the pain. I hope you feel better soon. Please follow up with your primary care provider within a week if your symptoms continue. If you do not have a primary care provider please contact the [facility] Resource line at [phone]. They will ask some questions about your medical history and help you get set up with a provider in the community. Prescriptions: New cyclobenzaprine 10 mg tablet 10 mg PO TID PRN (Reason: muscle spasm) Qty: 30 0RF No Action aspirin [Adult Low Dose Aspirin] 81 mg tablet,delayed release (DR/EC) 81 mg PO DAILY acetaminophen [Tylenol] 325 mg tablet 650 mg PO QID PRN pentoxifylline 400 mg tablet extended release 400 mg PO TID Rx Instructions: must administer with a meal/food nicotine 7 mg/24 hr patch 24 hour 1 patch transdermal Q24H Qty: 28 2RF tramadol 50 mg tablet 50 mg PO BID PRN (Reason: pain) Qty: 30 0RF metoprolol tartrate 25 mg tablet See Rx Instructions .ROUTE .COMPLEX Qty: 180 3RF Dose Instruction: TAKE ONE TABLET BY MOUTH TWICE DAILY Rx Instructions: TAKE ONE TABLET BY MOUTH TWICE DAILY atorvastatin [Lipitor] 80 mg tablet 80 mg PO DAILY Qty: 90 3RF tamsulosin 0.4 mg capsule 0.4 mg PO BEDTIME Qty: 90 3RF tadalafil [Cialis] 2.5 mg tablet 2.5 mg PO DAILY Qty: 90 3RF Referrals: Pedro Mcbride MD [Primary Care Provider] - Stand Alone Forms: Patient Portal/API
--- NOTE | 2023-02-08 11:20 | DI.RAD.S_ITS ---
PROCEDURE: XR HIP W PEL IF DONE LT 2V INDICATIONS: L hip pain TECHNIQUE: 2 views of the hip were acquired. COMPARISON: [facility], CT, CT IVP A/P W/WO, 11/28/2022, 13:10. FINDINGS: Bones: Glcz-bl-[id number] bilateral hip arthrosis. No displaced fracture or dislocation. Lumbosacral spondylosis. Possible right calcific tendinopathy. Soft tissues: Postsurgical sequelae. Vascular calcifications. IMPRESSION: No acute radiographic abnormality. [id number] degenerative changes. If there is high concern for further derangement, consider CT or MRI evaluation. Dictated by: Tin Cheng M.D. on 02/08/2023 at 13:00 Approved by: Tin Cheng M.D. on 02/08/2023 at 13:02
[2023-02-08] MEDS: CYCLOBENZAPRINE 10 MG TABLET PO (11:27)
[2023-02-08] MEDS: KETOROLAC 30 MG/ML VIAL 15 MG IM (11:28)
[2023-02-08 13:06] VITALS: BP 141/69; PULSE 60; RESP 18; TEMP 36.7; O2SAT 98
== END 2023-02-08 13:23 | disposition home or self-care (01) ==
PROVIDERS: Emergency Provider Physician Assistant Medical; PCP Family Medicine
DX: S39.012A Strain of muscle, fascia and tendon of lower back, initial encounter (principal); M54.42 Lumbago with sciatica, left side; M25.552 Pain in left hip
CPT/HCPCS: 72100; 73502; 96372; 99283; 99284; J1885

== ENCOUNTER 2023-03-04 09:48 | Outpatient (CLI) | payer MEDICARE, OTHER, SELFPAY ==
[2023-03-04] VITALS (10 sets, daily range): BP systolic 99–109; BP diastolic 55–70; PULSE 73–90; RESP 12–19; TEMP 36.3; O2SAT 94–99
--- NOTE | 2023-03-04 10:15 | DI.RAD.S_ITS ---
PROCEDURE: PAIN L/S TRANSFORAMINAL INJECT INDICATIONS: RADICULOPATHY COMPARISON: None. FINDINGS: Fluoroscopic spot filming was performed to verify placement of spinal needles at the left L4-L5 level(s), as labeled on the films. Appropriate location(s) of the needle tip(s) was confirmed by injection of iodinated contrast. IMPRESSION: Intraoperative guidance provided. Dictated by: Ruben Danielle M.D. on 03/04/2023 at 13:07 Approved by: Ruben Danielle M.D. on 03/04/2023 at 13:08
[2023-03-04] MEDS: MIDAZOLAM 2 MG/2 ML VIAL 1 MG IV ×2 (10:25→10:33)
[2023-03-04] MEDS: BUPIVACAINE 0.25% (PF) VIAL 2 ML INJ (10:30)
[2023-03-04] MEDS: iopamidoL 15 ML VIAL 3 ML INJ (10:30)
[2023-03-04] MEDS: BETAMETHASONE 30 MG/5 ML MDV 6 MG INJ (10:31)
[2023-03-04] MEDS: DEXAMETHASONE 10 MG/ML VIAL INJ (10:31)
[2023-03-04] MEDS: fentaNYL 100 MCG/2 ML INJ 50 MCG IV (10:41)
--- NOTE | 2023-03-04 10:54 | P.PCN_ITS ---
Date/Time/Diagnoses Date of procedure: 03/04/23 Time of procedure: 10:54 Pre-procedure diagnosis: 1. FORAMINAL STENOSIS WITH LE SYMPTOMS Post-procedure diagnosis: same Procedure Notes Procedure: 1. FLUOROSCOPICALLY GUIDED CONTRAST CONTROLLED TRANSFORAMINAL EPIDURAL STEROID INJECTION - LEFT L4/5 Indications: Lyndon is referred by Dr. Mcbride for treatment of Foraminal Stenosis with Left LE Symptoms Physician: Nelson Munoz Total Fluoroscopy time (seconds): 13 Total sedation minutes: 22 Complications: none Procedure in detail & Post-procedure care: FINDINGS Foraminal Nerve Root Compression secondary to disc disease and facet hypertrophy DESCRIPTION OF PROCEDURE Following review of allergy and review of potential side effects and complications, including, but not necessarily limited to, infection, allergic reaction, local tissue breakdown, stroke, temporary or permanent nerve injury, paralysis, and possible , the patient indicated that the patient understood and agreed to proceed. An informed consent document was signed by the patient, witnessed by a nurse, and placed in the patient's chart. Additionally, other treatment options including medications, modalities, and physical therapy were reviewed with the patient. After review of previous anaesthesic history and IV conscious sedation the patient was deemed safe to proceed with today?s procedure with IV conscious sedation as ASA class II designation. Safety time-out was performed to confirm patient ID, procedure to be performed and site of procedure. IV sedation was accomplished with a combination of 2mg of Versed and 50mcg on Fentanyl administered by the RN after DO order, titrated to patient comfort during the course of the procedure while the patient remained responsive to all verbal commands In the prone position following sterile prep and drape of the lumbar region, the left L4/5 posterior neuroforamen was identified fluoroscopically. The skin was anesthetized via a 25-gauge 1.5-inch needle with 1% lidocaine solution. At this point, a 25-gauge 3.5-inch spinal needle was atraumatically introduced and advanced under fluoroscopic guidance through the posterior left L4/5 neuroforamen to approximately the anterior aspect of the canal. Depth was confirmed on lateral view. Following negative aspiration, injection of approximately 1.5 cc of Isovue 200 under live fluoroscopy in the AP view confirmed excellent flow along the nerve root, into the epidural space without vascular or intrathecal uptake observed Radiological data, including multiple fluoroscopic views of the lumbosacral spine, reveal a spinal needle at the left L4/5 posterior neuroforamen. Subsequent views show flow of contrast material flowing superiorly and inferiorly along the nerve root confirming epidural flow. Subsequently, a test dose of 1.5 cc of 1% lidocaine solution was administered and patient was observed for two minutes for signs or symptoms of complications, including abdominal pain, shortness of breath, bilateral upper or lower extremity weakness, nausea and vomiting, prior to steroid injection. At this point, a total of 2cc or 10mg of dexamethasone and 6mg of betamethasone was injected without incident. The procedure tolerated the procedure well without signs or symptoms of complications prior to transfer to the recovery area continued monitoring without incident. The patient was then transferred to the recovery area where they were observed for an appropriate time after the injection. The patient reported a VAS score of 8 prior to the procedure and a post- procedure VAS of 1. POST OP INSTRUCTIONS The patient was provided a Pain Log to continue to record their response to the target-specific procedure prior to follow-up visit with their referring physician. Additionally, specific post-injection care instructions and a contact number to our office were provided if concerns arise regarding possible complications associated with the procedure are suspected.
--- NOTE | 2023-03-04 11:33 | PC.NURSE ---
patient is steady on feet and able to walk in place.
== END 2023-03-04 11:36 | disposition home or self-care (01) ==
LOC: RAD 09:50
PROVIDERS: PCP Family Medicine; Referring Provider Physical Medicine & Rehabilitation; Visit Provider Physical Medicine & Rehabilitation
DX: M48.061 Spinal stenosis, lumbar region without neurogenic claudication (principal); M51.16 Intervertebral disc disorders with radiculopathy, lumbar region; M47.26 Other spondylosis with radiculopathy, lumbar region
CPT/HCPCS: 64483; 99152; J0702; J1100; J2250; J3010; J3490

== ENCOUNTER 2023-04-15 09:00 | Outpatient (RCR) | payer MEDICARE, OTHER, SELFPAY ==
--- NOTE | 2023-04-03 10:30 | PT.OIE ---
Current Diagnoses Other intervertebral disc displacement, lumbar region (04/03/23) Past Medical History (Last Updated 02/26/23 @ 14:21 by Nelson Munoz DO) Alcoholism Bilateral hand pain BPH w urinary obs/LUTS CAD (coronary artery disease) Chicken pox (1966) Chronic hand pain Chronic neck pain (1999) Degenerative joint disease of both hips Erectile dysfunction Facet arthropathy, lumbar Heart attack (2009) Hematuria Herniated nucleus pulposus, L4-5 Incomplete bladder emptying Measles (~1970) Rheumatoid arthritis Shoulder pain Trigger finger, right little finger (04/2020) UTI (urinary tract infection) Past Surgical History (Last Reviewed 02/26/23 @ 14:06 by Nelson Munoz DO) Anesthesia History of heart artery stent (2008) Hx of CABG Status post rotator cuff repair Visit Care Team Role Provider Type Pedro Mcbride MD Family Provider Physician Primary Care Provider Specialty: Family Practice Address: [address] [place] [address] Email: [email or web address] Nelson Munoz DO Attending Provider Physician Referring Provider Specialty: Interventional Radiology Physiatry Pain Management Address: [address] [place] [address], [facility] Email: [email or web address] Physical Therapy Initial Evaluation PT-OP-A Visit Information Start: 04/03/23 17:33 Freq: Status: Active Protocol: Document 04/03/23 09:45 DCW (Rec: 04/03/23 17:47 DCW [id number]) Out-Patient Physical Therapy Visit Information Visit Information Visit Type Initial Evaluation Visit Start Time 09:45 Visit Stop Time 10:30 Visit Number 1 Number of PLATFORM CONSULTANT Visits 0 Evaluation Information Evaluation Date 04/03/23 PT-OP-B Current Condition Start: 04/03/23 17:33 Freq: Status: Active Protocol: Document 04/03/23 09:45 DCW (Rec: 04/03/23 17:47 DCW [id number]) Current Condition History of Current Condition Onset Date 02/02/24 Current Complaints Back pain, stiffness History of Current Condition Pt is a 67 year old male presenting with a two month history of low back pain and stiffness. Pt reports he bent over to pick something up on 02/01/23, felt a pop in his back, and had a lot of pain and stiffness in his low back. Did get steroid injections in his low back and hip, which has significantly improved his pain. Admits he has gotten back to swinging a golf club, just not quite fully. Still struggling with standing for longer periods of time, with cleaning or laundry. Did walk up [place] yesterday. Treatment Goals Patient/Caregiver Goals Improve flexibility and stability PT-OP-C Subjective Start: 04/03/23 17:33 Freq: Status: Active Protocol: Document 04/03/23 09:45 DCW (Rec: 04/03/23 17:47 DCW [id number]) OP-PT Subjective Patient Comments Patient Comments Those injections really helped, but I'm not quite where I want to be. Patient Questionnaires Oswestry Low Back Index Oswestry Score 17/50 = 34% Oswestry Impairment 20 to 39% Impaired (Score 20- 39) PT-OP-F Manual Assessment Start: 04/03/23 17:33 Freq: Status: Active Protocol: Document 04/03/23 09:45 DCW (Rec: 04/03/23 17:47 DCW [id number]) Manual Assessments Soft Tissue Assessment Soft Tissue Mobility Assessment Moderate-severe tone with tenderness to palpation 3/4: Wincing and withdraw B Piriformis, B lumbar perispinals PT-OP-K Range of Motion Start: 04/03/23 17:33 Freq: Status: Active Protocol: Document 04/03/23 09:45 DCW (Rec: 04/03/23 17:47 DCW [id number]) Lumbar Spine Range of Motion Lumbar Spine Active Degrees Testing Position Standing Flexion 25 Extension 10 Lateral Flexion Left 52 Lateral Flexion Right 48 ROM Limitations Muscle Weakness,Muscle Tone, Pain Comments Lateral flexion measured in cm from floor to fingertips PT-OP-L Special Tests Start: 04/03/23 17:33 Freq: Status: Active Protocol: Document 04/03/23 09:45 DCW (Rec: 04/03/23 17:50 DCW [id number]) Special Tests Lumbar Spine Special Tests Straight Leg Raise Test Results Bilateral HS tightness at 50? Slump Test Results Negative Compression Test Results Negative A-P Shearing Test Results Negative Hip Special Tests Piriformis Test Results Positive bilaterally, L>R MALVIN Test Results Bilateral ipsilateral pain PT-OP-Q Treatments Start: 04/03/23 17:33 Freq: Status: Active Protocol: Document 04/03/23 09:45 DCW (Rec: 04/03/23 17:50 DCW [id number]) Therapeutic Exercises Supine Exercises Piriformis Supine Exercise Name Figure-4, Knee to opposite shoulder Side bilateral Sitting Exercises Piriformis Sitting Exercise Name Seated figure-4 Side bilateral Standing Exercises Pallof Press Standing Exercise Name Pallof Press Side bilateral Resistance Lv 3 PT-OP-T Assessment and Plan Start: 04/03/23 17:33 Freq: Status: Active Protocol: Document 04/03/23 09:45 DCW (Rec: 04/04/23 08:35 DCW [id number]) Physical Therapy Assessment Rehab Potential Rehabilitation Potential Good Evaluation Complexity Number of Personal Factors/Comorbidities 1-2 Number of Body Systems Impaired 1-2 Clinical Presentation at Evaluation Stable Impairments Impairments Functional Activities, Functional Mobility,Pain,ROM, Soft Tissue Mobility,Tone Goals Two Impairment Severely limited lumbar ROM measuring 25? flexion and 10? extension Marketing Automation Analyst Goal (LTG) Pt to improve lumbar flexion to >50? in order to improve pt 's ability to return to hobby of golfing LTG Duration 06/02/23 One Impairment Pt does not have an appropriate home exercise program Short Term Goal (STG) Pt to be independent and compliant with an appropriate HEP STG Duration 05/02/23 Assessment Summary Assessment Pt presents two months s/p low back injury, which was severely limiting for a time, but has improved dramatically following a few steroid injections. Pt does, however, exhibit continued increased soft tissue tone in lumbar perispinals, piriformis, and hamstrings, resulting in general soreness and stiffness when performing more high- level activities, or when standing for an extended period of time. Pt will most likely benefit from skilled therapeutic intervention including stretching/ flexibility, STM, core strengthening, and body mechanics training. Physical Therapy Plan Frequency and Duration Frequency of Treatment 2x/Week Plan of Care Start Date 04/03/23 Plan of Care End Date 06/02/23 Therapeutic Interventions Therapeutic Interventions Home Exercise Program,Joint Mobilizations,Manual Therapy, Neuromuscular Re-education, Patient/Caregiver Education, Self-Care/Home Management,Soft Tissue Mobilization, Therapeutic Activities, Therapeutic Exercises Modalities Cold Pack/Ice Massage,Electric Stimulation,Hot Packs, Ultrasound Next Visit Focus/Plan Next Note Type Treatment Note Next Visit Plan Flexibility, core strengthening
--- NOTE | 2023-04-03 10:30 | PT.OPPOC ---
Physical, Occupational & Speech Therapy At [facility] Current Diagnoses Other intervertebral disc displacement, lumbar region (04/03/23) Visit Care Team Role Provider Type Pedro Mcbride MD Family Provider Physician Primary Care Provider Specialty: Family Practice Address: [address] [place] [address], [id number] Email: [email or web address] Nelson Munoz DO Attending Provider Physician Referring Provider Specialty: Interventional Radiology Physiatry Pain Management Address: [facility] [place], [address] Email: [email or web address] Plan Of Care PT-OP-T Assessment and Plan Start: 04/03/23 17:33 Freq: Status: Active Protocol: Document 04/03/23 09:45 DCW (Rec: 04/04/23 08:35 DCW [id number]) Physical Therapy Assessment Rehab Potential Rehabilitation Potential Good Evaluation Complexity Number of Personal Factors/Comorbidities 1-2 Number of Body Systems Impaired 1-2 Clinical Presentation at Evaluation Stable Impairments Impairments Functional Activities, Functional Mobility,Pain,ROM, Soft Tissue Mobility,Tone Goals Two Impairment Severely limited lumbar ROM measuring 25? flexion and 10? extension French Binding Folder Goal (LTG) Pt to improve lumbar flexion to >50? in order to improve pt 's ability to return to hobby of golfing LTG Duration 06/02/23 One Impairment Pt does not have an appropriate home exercise program Short Term Goal (STG) Pt to be independent and compliant with an appropriate HEP STG Duration 05/02/23 Assessment Summary Assessment Pt presents two months s/p low back injury, which was severely limiting for a time, but has improved dramatically following a few steroid injections. Pt does, however, exhibit continued increased soft tissue tone in lumbar perispinals, piriformis, and hamstrings, resulting in general soreness and stiffness when performing more high- level activities, or when standing for an extended period of time. Pt will most likely benefit from skilled therapeutic intervention including stretching/ flexibility, STM, core strengthening, and body mechanics training. Physical Therapy Plan Frequency and Duration Frequency of Treatment 2x/Week Plan of Care Start Date 04/03/23 Plan of Care End Date 06/02/23 Therapeutic Interventions Therapeutic Interventions Home Exercise Program,Joint Mobilizations,Manual Therapy, Neuromuscular Re-education, Patient/Caregiver Education, Self-Care/Home Management,Soft Tissue Mobilization, Therapeutic Activities, Therapeutic Exercises Modalities Cold Pack/Ice Massage,Electric Stimulation,Hot Packs, Ultrasound Next Visit Focus/Plan Next Note Type Treatment Note Next Visit Plan Flexibility, core strengthening Plan of Care Dates Plan of Care Start Date 04/03/23 Plan of Care End Date 06/02/23 Electronically Signed by: Bruce Vasquez, PT 04/04/23 0836 If you are in agreement with this Plan of Care, please return a signed and dated copy. I have reviewed this Plan of Care and certify that the skilled therapy services above are required to meet the patient?s needs. Physician Signature Date Printed Name and Credentials Clinical Instructor Signature Printed Name and Credentials
--- NOTE | 2023-04-08 10:31 | PT.OTN ---
Current Diagnoses Other intervertebral disc displacement, lumbar region (04/08/23) Physical Therapy Treatment Note PT-OP-A Visit Information Start: 04/03/23 17:33 Freq: Status: Active Protocol: Document 04/08/23 09:45 DCW (Rec: 04/08/23 10:31 DCW [id number]) Out-Patient Physical Therapy Visit Information Visit Information Visit Type Treatment Note Visit Start Time 09:45 Visit Stop Time 10:30 Visit Number 2 Number of CONVENTIONAL MACHINIST Visits 0 Evaluation Information Evaluation Date 04/03/23 PT-OP-B Current Condition Start: 04/03/23 17:33 Freq: Status: Active Protocol: Document 04/03/23 09:45 DCW (Rec: 04/03/23 17:47 DCW [id number]) Current Condition History of Current Condition Onset Date 02/02/24 Current Complaints Back pain, stiffness History of Current Condition Pt is a 67 year old male presenting with a two month history of low back pain and stiffness. Pt reports he bent over to pick something up on 02/01/23, felt a pop in his back, and had a lot of pain and stiffness in his low back. Did get steroid injections in his low back and hip, which has significantly improved his pain. Admits he has gotten back to swinging a golf club, just not quite fully. Still struggling with standing for longer periods of time, with cleaning or laundry. Did walk up [place] yesterday. Treatment Goals Patient/Caregiver Goals Improve flexibility and stability PT-OP-C Subjective Start: 04/03/23 17:33 Freq: Status: Active Protocol: Document 04/08/23 09:45 DCW (Rec: 04/08/23 10:31 DCW [id number]) OP-PT Subjective Patient Comments Patient Comments A little sore this morning but nothing too bad. PT-OP-F Manual Assessment Start: 04/03/23 17:33 Freq: Status: Active Protocol: Document 04/03/23 09:45 DCW (Rec: 04/03/23 17:47 DCW [id number]) Manual Assessments Soft Tissue Assessment Soft Tissue Mobility Assessment Moderate-severe tone with tenderness to palpation 3/4: Wincing and withdraw B Piriformis, B lumbar perispinals PT-OP-K Range of Motion Start: 04/03/23 17:33 Freq: Status: Active Protocol: Document 04/03/23 09:45 DCW (Rec: 04/03/23 17:47 DCW [id number]) Lumbar Spine Range of Motion Lumbar Spine Active Degrees Testing Position Standing Flexion 25 Extension 10 Lateral Flexion Left 52 Lateral Flexion Right 48 ROM Limitations Muscle Weakness,Muscle Tone, Pain Comments Lateral flexion measured in cm from floor to fingertips PT-OP-L Special Tests Start: 04/03/23 17:33 Freq: Status: Active Protocol: Document 04/03/23 09:45 DCW (Rec: 04/03/23 17:50 DCW [id number]) Special Tests Lumbar Spine Special Tests Straight Leg Raise Test Results Bilateral HS tightness at 50? Slump Test Results Negative Compression Test Results Negative A-P Shearing Test Results Negative Hip Special Tests Piriformis Test Results Positive bilaterally, L>R MALVIN Test Results Bilateral ipsilateral pain PT-OP-Q Treatments Start: 04/03/23 17:33 Freq: Status: Active Protocol: Document 04/08/23 09:45 DCW (Rec: 04/08/23 10:31 DCW [id number]) Gym Equipment Therapeutic Ball Bridging Exercise Details Bridging /c feet on ball Ball Size/Color Blue - 45 cm Body Position Supine LTR Exercise Details LTR Ball Size/Color Blue - 45 cm Body Position Hooklying Therapeutic Exercises Sidelying Exercises Reverse Clamshell Sidelying Exercise Name Reverse Clamshell Side bilateral Clamshell Sidelying Exercise Name Clamshell Side bilateral Open Book Sidelying Exercise Name Open Book Side bilateral Manual Therapy Treatment Soft Tissue Mobilization Piriformis Body Location B Piriformis Mobilization Type Strumming,Sustained Pressure Body Position Sidelying Perispinals Body Location B Lumbar perispinals Mobilization Type Strumming,Sustained Pressure Body Position Sidelying PT-OP-T Assessment and Plan Start: 04/03/23 17:33 Freq: Status: Active Protocol: Document 04/08/23 09:45 DCW (Rec: 04/08/23 10:31 DCW [id number]) Physical Therapy Assessment Impairments Impairments Functional Activities, Functional Mobility,Pain,ROM, Soft Tissue Mobility,Tone Goals Two Impairment Severely limited lumbar ROM measuring 25? flexion and 10? extension Shelter Goal (LTG) Pt to improve lumbar flexion to >50? in order to improve pt 's ability to return to hobby of golfing LTG Duration 06/02/23 One Impairment Pt does not have an appropriate home exercise program Short Term Goal (STG) Pt to be independent and compliant with an appropriate HEP STG Duration 05/02/23 Assessment Summary Assessment Some tenderness today with palpation/STM along lumbar musculature, good response to mobility and strengthening exercises. Provided HO for further piriformis stretching and Clamshell/Reverse Clamshell Physical Therapy Plan Frequency and Duration Frequency of Treatment 2x/Week Plan of Care Start Date 04/03/23 Plan of Care End Date 06/02/23 Therapeutic Interventions Therapeutic Interventions Home Exercise Program,Joint Mobilizations,Manual Therapy, Neuromuscular Re-education, Patient/Caregiver Education, Self-Care/Home Management,Soft Tissue Mobilization, Therapeutic Activities, Therapeutic Exercises Modalities Cold Pack/Ice Massage,Electric Stimulation,Hot Packs, Ultrasound Next Visit Focus/Plan Next Note Type Treatment Note Next Visit Plan Flexibility, core strengthening
--- NOTE | 2023-04-11 11:07 | PT.OTN ---
Current Diagnoses Other intervertebral disc displacement, lumbar region (04/11/23) Physical Therapy Treatment Note PT-OP-A Visit Information Start: 04/03/23 17:33 Freq: Status: Active Protocol: Document 04/11/23 08:05 AB (Rec: 04/11/23 11:07 AB [id number]) Out-Patient Physical Therapy Visit Information Visit Information Visit Type Treatment Note Visit Note Access code [email or web address] Visit Start Time 09:02 Visit Stop Time 09:45 Visit Number 3 Number of ACCESS RN Visits 1 Evaluation Information Evaluation Date 04/03/23 PT-OP-B Current Condition Start: 04/03/23 17:33 Freq: Status: Active Protocol: Document 04/03/23 09:45 DCW (Rec: 04/03/23 17:47 DCW [id number]) Current Condition History of Current Condition Onset Date 02/02/24 Current Complaints Back pain, stiffness History of Current Condition Pt is a 67 year old male presenting with a two month history of low back pain and stiffness. Pt reports he bent over to pick something up on 02/01/23, felt a pop in his back, and had a lot of pain and stiffness in his low back. Did get steroid injections in his low back and hip, which has significantly improved his pain. Admits he has gotten back to swinging a golf club, just not quite fully. Still struggling with standing for longer periods of time, with cleaning or laundry. Did walk up [place] yesterday. Treatment Goals Patient/Caregiver Goals Improve flexibility and stability PT-OP-C Subjective Start: 04/03/23 17:33 Freq: Status: Active Protocol: Document 04/11/23 08:05 AB (Rec: 04/11/23 11:07 AB [id number]) OP-PT Subjective Patient Comments Patient Comments Patient reports he is better, thinks the stretches are helping. Patient reports the back fatigues fast if standing for very long or bending over . PT-OP-F Manual Assessment Start: 04/03/23 17:33 Freq: Status: Active Protocol: Document 04/03/23 09:45 DCW (Rec: 04/03/23 17:47 DCW [id number]) Manual Assessments Soft Tissue Assessment Soft Tissue Mobility Assessment Moderate-severe tone with tenderness to palpation 3/4: Wincing and withdraw B Piriformis, B lumbar perispinals PT-OP-K Range of Motion Start: 04/03/23 17:33 Freq: Status: Active Protocol: Document 04/03/23 09:45 DCW (Rec: 04/03/23 17:47 DCW [id number]) Lumbar Spine Range of Motion Lumbar Spine Active Degrees Testing Position Standing Flexion 25 Extension 10 Lateral Flexion Left 52 Lateral Flexion Right 48 ROM Limitations Muscle Weakness,Muscle Tone, Pain Comments Lateral flexion measured in cm from floor to fingertips PT-OP-L Special Tests Start: 04/03/23 17:33 Freq: Status: Active Protocol: Document 04/03/23 09:45 DCW (Rec: 04/03/23 17:50 DCW [id number]) Special Tests Lumbar Spine Special Tests Straight Leg Raise Test Results Bilateral HS tightness at 50? Slump Test Results Negative Compression Test Results Negative A-P Shearing Test Results Negative Hip Special Tests Piriformis Test Results Positive bilaterally, L>R MALVIN Test Results Bilateral ipsilateral pain PT-OP-Q Treatments Start: 04/03/23 17:33 Freq: Status: Active Protocol: Document 04/11/23 08:05 AB (Rec: 04/11/23 11:07 AB [id number]) Therapeutic Exercises Supine Exercises hamstring stretch Supine Exercise Name from hooklying ( towel to hold LE post first rep) Side bilateral Reps/Minutes 60 sec X 2 each LE Comments VC for LE position duration of hold bent knee fall out with band Side bilateral Equipment Used level 2 band Reps/Minutes X10 Comments VC to brace with abdominals as LE moves out to side abdominal bracing with LE extension Side bilateral Reps/Minutes X10 Comments VC to brace as LE moves away from core [place] stretch Supine Exercise Name edge of bed Reps/Minutes 60 seconds Comments knee flex AROM berny on left, not berny right LE Standing Exercises sit to stand Side bilateral Resistance level 2 band above knees Reps/Minutes X10 post hip hinge training Comments Patient ed use of self tactile cues for hip hinge Manual Therapy Treatment Soft Tissue Mobilization Piriformis Body Location B Piriformis Mobilization Type Cross-Friction,Rolling Body Position Sidelying Perispinals Body Location B Lumbar perispinals Mobilization Type Rolling,Sustained Pressure Body Position Sidelying Manual Techniques contract relax into hip IR Body Location hip Body Position Sitting Reps/Duration X1 60 sec hold each LE PT-OP-T Assessment and Plan Start: 04/03/23 17:33 Freq: Status: Active Protocol: Document 04/11/23 08:05 AB (Rec: 04/11/23 11:07 AB [id number]) Physical Therapy Assessment Goals Two Impairment Severely limited lumbar ROM measuring 25? flexion and 10? extension Jail Goal (LTG) Pt to improve lumbar flexion to >50? in order to improve pt 's ability to return to hobby of golfing LTG Duration 06/02/23 One Impairment Pt does not have an appropriate home exercise program Short Term Goal (STG) Pt to be independent and compliant with an appropriate HEP STG Duration 05/02/23 Assessment Summary Assessment Patient reports feeling good end of session. No carryover for hip hinge with sit to stand to end of session, ie stands with quad dom pattern, bilteral LE in excessive ER at hips. Physical Therapy Plan Frequency and Duration Frequency of Treatment 2x/Week Plan of Care Start Date 04/03/23 Plan of Care End Date 06/02/23 Next Visit Focus/Plan Next Note Type Treatment Note Next Visit Plan Flexibility, core strengthening/possibly increase band with Pallof press, revisit sit to stand with band and hip hinge.
--- NOTE | 2023-04-15 10:51 | PT.OTN ---
Current Diagnoses Other intervertebral disc displacement, lumbar region (04/15/23) Physical Therapy Treatment Note PT-OP-A Visit Information Start: 04/03/23 17:33 Freq: Status: Active Protocol: Document 04/15/23 08:07 AB (Rec: 04/15/23 10:51 AB [id number]) Out-Patient Physical Therapy Visit Information Visit Information Visit Type Treatment Note Visit Note Access code [email or web address] Visit Start Time 09:02 Visit Stop Time 09:48 Visit Number 4 Number of ASSOC[employer] PSYCHOLOGIST Visits 2 Evaluation Information Evaluation Date 04/03/23 PT-OP-B Current Condition Start: 04/03/23 17:33 Freq: Status: Active Protocol: Document 04/03/23 09:45 DCW (Rec: 04/03/23 17:47 DCW [id number]) Current Condition History of Current Condition Onset Date 02/02/24 Current Complaints Back pain, stiffness History of Current Condition Pt is a 67 year old male presenting with a two month history of low back pain and stiffness. Pt reports he bent over to pick something up on 02/01/23, felt a pop in his back, and had a lot of pain and stiffness in his low back. Did get steroid injections in his low back and hip, which has significantly improved his pain. Admits he has gotten back to swinging a golf club, just not quite fully. Still struggling with standing for longer periods of time, with cleaning or laundry. Did walk up [place] yesterday. Treatment Goals Patient/Caregiver Goals Improve flexibility and stability PT-OP-C Subjective Start: 04/03/23 17:33 Freq: Status: Active Protocol: Document 04/15/23 08:07 AB (Rec: 04/15/23 10:51 AB [id number]) OP-PT Subjective Patient Comments Patient Comments Patient comments the stretches are helping. Lyndon reports neck pain has been a problem, and has a history of this issue. PT-OP-F Manual Assessment Start: 04/03/23 17:33 Freq: Status: Active Protocol: Document 04/03/23 09:45 DCW (Rec: 04/03/23 17:47 DCW [id number]) Manual Assessments Soft Tissue Assessment Soft Tissue Mobility Assessment Moderate-severe tone with tenderness to palpation 3/4: Wincing and withdraw B Piriformis, B lumbar perispinals PT-OP-K Range of Motion Start: 04/03/23 17:33 Freq: Status: Active Protocol: Document 04/03/23 09:45 DCW (Rec: 04/03/23 17:47 DCW [id number]) Lumbar Spine Range of Motion Lumbar Spine Active Degrees Testing Position Standing Flexion 25 Extension 10 Lateral Flexion Left 52 Lateral Flexion Right 48 ROM Limitations Muscle Weakness,Muscle Tone, Pain Comments Lateral flexion measured in cm from floor to fingertips PT-OP-L Special Tests Start: 04/03/23 17:33 Freq: Status: Active Protocol: Document 04/03/23 09:45 DCW (Rec: 04/03/23 17:50 DCW [id number]) Special Tests Lumbar Spine Special Tests Straight Leg Raise Test Results Bilateral HS tightness at 50? Slump Test Results Negative Compression Test Results Negative A-P Shearing Test Results Negative Hip Special Tests Piriformis Test Results Positive bilaterally, L>R MALVIN Test Results Bilateral ipsilateral pain PT-OP-Q Treatments Start: 04/03/23 17:33 Freq: Status: Active Protocol: Document 04/15/23 08:07 AB (Rec: 04/15/23 10:51 AB [id number]) Therapeutic Exercises Supine Exercises hamstring stretch Supine Exercise Name from hooklying ( towel to hold LE post first rep) Reps/Minutes 60 sec X 1 each LE [place] stretch Supine Exercise Name edge of bed Reps/Minutes 60 seconds X 2 each LE Comments with breathing from diaphragm with minimal knee flexion intermittently Sitting Exercises Piriformis Sitting Exercise Name Seated figure-4 Side bilateral Reps/Minutes 60 seconds X 1 each LE Comments post manual therapy Standing Exercises squat with band Side bilateral Equipment Used level 3 band tied above knees Reps/Minutes 2X10 Comments Verbal cues to squat 1/[address] mat sit to stand Side bilateral Resistance without band Reps/Minutes X3 Comments Review of self tactile cues, knees flex just past 90, avoid excess toe out Pallof Press Standing Exercise Name Pallof Press Side bilateral Resistance Lv 4 Reps/Minutes 10 each side Comments Review of UE direction of movement Manual Therapy Treatment Soft Tissue Mobilization Piriformis Body Location B Piriformis Mobilization Type Cross-Friction,Rolling Body Position Sidelying Perispinals Body Location B Lumbar perispinals Mobilization Type Rolling,Sustained Pressure Body Position Sidelying Manual Techniques MET for right AI left PI and pubic shotgun Reps/Duration 6X6 each technique Comments monitored for pain PT-OP-T Assessment and Plan Start: 04/03/23 17:33 Freq: Status: Active Protocol: Document 04/15/23 08:07 AB (Rec: 04/15/23 10:51 AB [id number]) Physical Therapy Assessment Goals Two Impairment Severely limited lumbar ROM measuring 25? flexion and 10? extension Jail Goal (LTG) Pt to improve lumbar flexion to >50? in order to improve pt 's ability to return to hobby of golfing LTG Duration 06/02/23 One Impairment Pt does not have an appropriate home exercise program Short Term Goal (STG) Pt to be independent and compliant with an appropriate HEP STG Duration 05/02/23 Assessment Summary Assessment Patient reports the back feels good end of session. Good return demonstration for squat with hip hinge, increased difficulty holding hip hinge with stand to sit from standard chair seat height, likely due to hamstring stiffness. Physical Therapy Plan Frequency and Duration Frequency of Treatment 2x/Week Plan of Care Start Date 04/03/23 Plan of Care End Date 06/02/23 Next Visit Focus/Plan Next Note Type Treatment Note Next Visit Plan Possibly manual therapy to hamstrings prior to hamstring stretch, then revist squat with band to increased depth. Review Pallof press, Cat cow in counter plank position.
--- NOTE | 2023-11-20 17:47 | PT.OPDS ---
Current Diagnoses Other intervertebral disc displacement, lumbar region (04/15/23) Visit Care Team Role Provider Type Pedro Mbcride MD Family Provider Physician Primary Care Provider Specialty: Family Practice Address: [address] [place] [address], [id number] Email: [email or web address] Nelson Munoz DO Attending Provider Physician Referring Provider Specialty: Interventional Radiology Physiatry Pain Management Address: [facility] [place], [address] Email: [email or web address] Visit Number Visit Number 4 Discharge Summary PT-OP-B Current Condition Start: 04/03/23 17:33 Freq: Status: Active Protocol: Document 04/03/23 09:45 DCW (Rec: 04/03/23 17:47 DCW [id number]) Current Condition History of Current Condition Onset Date 02/02/24 Current Complaints Back pain, stiffness History of Current Condition Pt is a 67 year old male presenting with a two month history of low back pain and stiffness. Pt reports he bent over to pick something up on 02/01/23, felt a pop in his back, and had a lot of pain and stiffness in his low back. Did get steroid injections in his low back and hip, which has significantly improved his pain. Admits he has gotten back to swinging a golf club, just not quite fully. Still struggling with standing for longer periods of time, with cleaning or laundry. Did walk up [place] yesterday. Treatment Goals Patient/Caregiver Goals Improve flexibility and stability PT-OP-C Subjective Start: 04/03/23 17:33 Freq: Status: Active Protocol: Document 04/15/23 08:07 AB (Rec: 04/15/23 10:51 AB [id number]) OP-PT Subjective Patient Comments Patient Comments Patient comments the stretches are helping. Lyndon reports neck pain has been a problem, and has a history of this issue. PT-OP-F Manual Assessment Start: 04/03/23 17:33 Freq: Status: Active Protocol: Document 04/03/23 09:45 DCW (Rec: 02/22/24 17:47 DCW [id number]) Manual Assessments Soft Tissue Assessment Soft Tissue Mobility Assessment Moderate-severe tone with tenderness to palpation 3/4: Wincing and withdraw B Piriformis, B lumbar perispinals PT-OP-K Range of Motion Start: 04/03/23 17:33 Freq: Status: Active Protocol: Document 04/03/23 09:45 DCW (Rec: 04/03/23 17:47 DCW [id number]) Lumbar Spine Range of Motion Lumbar Spine Active Degrees Testing Position Standing Flexion 25 Extension 10 Lateral Flexion Left 52 Lateral Flexion Right 48 ROM Limitations Muscle Weakness,Muscle Tone, Pain Comments Lateral flexion measured in cm from floor to fingertips PT-OP-L Special Tests Start: 04/03/23 17:33 Freq: Status: Active Protocol: Document 04/03/23 09:45 DCW (Rec: 04/03/23 17:50 DCW [id number]) Special Tests Lumbar Spine Special Tests Straight Leg Raise Test Results Bilateral HS tightness at 50? Slump Test Results Negative Compression Test Results Negative A-P Shearing Test Results Negative Hip Special Tests Piriformis Test Results Positive bilaterally, L>R MALVIN Test Results Bilateral ipsilateral pain PT-OP-T Assessment and Plan Start: 04/03/23 17:33 Freq: Status: Active Protocol: Document 11/20/23 17:47 DCW (Rec: 11/20/23 17:47 DCW [id number]) Physical Therapy Assessment Assessment Summary Assessment Pt has not been seen in more than seven months. Plan of care has . Pt will require a new referral in order to return to PT in the future. Pt will be discharged from skilled therapy at this time.
== END 2023-11-21 15:02 | disposition home or self-care (01) ==
LOC: PHYS 09:00
PROVIDERS: Family Provider Family Medicine; PCP Family Medicine; Referring Provider Physical Medicine & Rehabilitation; Visit Provider Physical Medicine & Rehabilitation
DX: M51.26 Other intervertebral disc displacement, lumbar region (principal)
CPT/HCPCS: 97110; 97140; 97161; 97530

== ENCOUNTER 2023-09-30 08:58 | Outpatient (CLI) | payer MEDICARE, OTHER, SELFPAY ==
[2023-09-30] VITALS (10 sets, daily range): BP systolic 106–135; BP diastolic 59–69; PULSE 69–72; RESP 12–21; TEMP 36.1; O2SAT 95–99
--- NOTE | 2023-09-30 09:30 | DI.RAD.S_ITS ---
PROCEDURE: PAIN C/T INTERLAMINAR INJECT INDICATIONS: SPONDYLOSIS COMPARISON: None. FINDINGS: Fluoroscopic spot filming was performed to verify placement of spinal needles at the C6-C7 level(s), as labeled on the films. Appropriate location(s) of the needle tip(s) was confirmed by injection of iodinated contrast. IMPRESSION: C6-C7 injection. Please see operative note for full details. Dictated by: Tin Cheng M.D. on 09/30/2023 at 16:38 Approved by: Tin Cheng M.D. on 09/30/2023 at 16:38
[2023-09-30] MEDS: MIDAZOLAM 2 MG/2 ML VIAL IV (10:05)
[2023-09-30] MEDS: BUPIVACAINE 0.25% (PF) VIAL 2 ML INJ (10:12)
[2023-09-30] MEDS: DEXAMETHASONE 10 MG/ML VIAL 20 MG INJ (10:12)
[2023-09-30] MEDS: iopamidoL 15 ML VIAL 3 ML INJ (10:12)
--- NOTE | 2023-09-30 10:30 | P.PCN_ITS ---
Date/Time/Diagnoses Date of procedure: 09/30/23 Time of procedure: 10:30 Pre-procedure diagnosis: 1. CERVICAL STENOSIS, 2. CERVICAL HNP WITH UPPER EXTREMITY RADICULAR FEATURES Post-procedure diagnosis: same Procedure Notes Procedure: 1. FLUORSCOPICALLY GUIDED CONTRAST CONTROLLED INTERLAMINAR EPIDURAL STEROID INJECTION - C6/7 TL AUBREY Indications: Lyndon is referred by Dr. Mcbride for treatment of Cervical HNP with Upper Extremity Paresthesias. Physician: Nelson Munoz Total Fluoroscopy time (seconds): 28 Total sedation minutes: 20 Complications: none Procedure in detail & Post-procedure care: FINDINGS Cervical Stenosis due to disc deterioration and nerve root irritation and nerve root irritation DESCRIPTION OF PROCEDURE Fluoroscopically guided, contrast-controlled C6/7 translaminar epidural steroid injection with conscious sedation. Following review of allergy and review of potential side effects and complications, including, but not necessarily limited to, infection, allergic reaction, local tissue breakdown, temporary as well as permanent nerve injury, stroke, paralysis, and possible , the patient indicated that patient understood and agreed to proceed. An informed consent document was signed by the patient, witnessed by a nurse, and placed in the patient's chart. Additionally, other treatment options including modalities, medications, and physical therapy were reviewed with the patient. After review of previous anaesthesic history and IV conscious sedation the patient was deemed safe to proceed with today?s procedure with IV conscious sedation as ASA class II designation. Safety time-out was performed to confirm patient ID, procedure to be performed and site of procedure. IV sedation was accomplished with a combination of 2mg of Versed administered by the RN after DO order, titrated to patient comfort during the course of the procedure while the patient remained responsive to all verbal commands. In the prone position, following sterile prep and drape of the cervical region, the C6/7 translaminar space was identified fluoroscopically. The skin was anesthetized via a 25-gauge 1.5-inch needle with 1% lidocaine solution. At this point, a 25-gauge, 2.5-inch short bevel spinal needle was atraumatically introduced and advanced under fluoroscopic guidance into epidural space at the C6/7 translaminar space. Depth was confirmed on lateral view. Radiological data, including multiple fluoroscopic views of the cervical spine, reveal a spinal needle at the C6/7 translaminar space. Lateral views then show placement of the needle in the epidural space. Subsequent views show contrast material flowing superiorly and inferiorly in the epidural space. DSA fluoroscopy with live contrast injection, once again, confirmed no vascular or intrathecal uptake. At this point, using loss of resistance technique with saline and air, the epidural space was entered. Following negative aspiration, injection of approximately 1.5 cc of Isovue-200 with live fluoroscopy in the AP view confirmed epidural flow in the epidural space without vascular or intrathecal uptake observed. Subsequently, a test dose of 1 cc of 1% lidocaine solution was injected and patient was observed for two minutes without signs or symptoms of complications, including abdominal pain, shortness of breath, bilateral upper or lower extremity weakness, nausea and vomiting, prior to steroid injection. At this point, 2cc or 20mg of dexamethasone was then injected without incident. The patient tolerated the procedure well without signs or symptoms of compli cations prior to being transferred to the recovery area for further monitoring, The patient was then transferred to the recovery area where they were observed for an appropriate period of time after the injection. The patient reported a VAS score of 6 prior to the procedure and a post-procedure VAS of 0. POST OP INSTRUCTIONS The patient was provided a Pain Log to continue to record their response to the target-specific procedure prior to follow-up visit with the referring provider. Additionally, specific post-injection care instructions and a contact number to our office were provided if concerns arise regarding possible complications associated with the procedure are suspected.
== END 2023-09-30 10:51 | disposition home or self-care (01) ==
LOC: RAD 08:59
PROVIDERS: Family Provider Family Medicine; PCP Family Medicine; Referring Provider Physical Medicine & Rehabilitation; Visit Provider Physical Medicine & Rehabilitation
DX: M48.02 Spinal stenosis, cervical region (principal); M50.123 Cervical disc disorder at C6-C7 level with radiculopathy
CPT/HCPCS: 62321; 99152; J1100; J2250; J3490

== ENCOUNTER → 2023-11-17 10:07 | Outpatient (CLI) | payer MEDICARE, OTHER, SELFPAY ==
[2023-11-17 11:35] LABS: Add Manual Diff / Slide Review NO; Basophils Absolute Auto 100 /uL (0-100); Basophils Percent Auto 0.7 % (0-2); Eosinophils Absolute Auto 0 /uL (0-450); Eosinophils Percent Auto 0.5 % (2-4); Hematocrit 43.5 % (41-53); Hemoglobin 15.1 g/dL (13.5-17.5); Lymphocytes Absolute Auto 1900 /uL (1100-4500); Lymphocytes Percent Auto 26.5 % (25-40); Mean Corpuscular HGB Conc 34.7 % (30-36); Mean Corpuscular Hemoglobin 32.6 PG (26-34); Monocytes Absolute Auto 600 /uL (0-900); Monocytes Percent Auto 8.2 % (3-14); Neutrophils Absolute Auto 4600 /uL (1500-7000); Neutrophils Percent Auto 64.1 % (50-75); Platelet Count 235 X10^3/uL (150-400); Red Blood Cell Count 4.63 X10^6/uL (4.5-5.9); Red Cell Distribution Width 14.3 % (11.6-14.8); White Blood Cell Count 7.2 X10^3/uL (4.5-11.0)
[2023-11-17 12:13] LABS: Alanine Aminotransferase 25 IU/L (<50); Albumin 4.6 g/dL (3.5-5.0); Albumin Globulin Ratio 1.8 (1.0-2.8); Alkaline Phosphatase 103 U/L (38-126); Aspartate Aminotransferase 33 IU/L (17-59); BUN Creatinine Ratio 10.7 (6-22); Bilirubin Total 0.8 mg/dL (0.2-1.3); Blood Urea Nitrogen 8 mg/dL (9-20); Calcium 9.6 mg/dL (8.4-10.2); Carbon Dioxide 25 mmol/L (22-32); Chloride 97 mmol/L (98-107); Cholesterol 239 mg/dL (140-199); Estimated Glomerular Filt Rate > 60 mL/min (>60); Globulin 2.5 g/dL (1.7-4.1); Glucose 92 mg/dL (80-110); HDL Cholesterol 45 mg/dL (40-60); HEMOLYSIS < 15 (0-50); Hemoglobin A1C% w Est Avg Glu 5.4 % (4.0-6.0); LDL Cholesterol Calculated 172 mg/dL (<100); Potassium 4.7 mmol/L (3.4-5.1); Sodium 130 mmol/L (137-145); Total Protein 7.1 g/dL (6.3-8.2); Triglycerides 108 mg/dL (35-150)
[2023-11-17 12:27] LABS: Creatinine Urine Random 70.38 mg/dL
[2023-11-17 12:30] LABS: Microalbumin Urine Random 2.7 mg/dL (0-1.6)
[2023-11-17 12:35] LABS: Prostate Specific Antigen Scrn 0.716 ng/mL (0.1-4.0)
[2023-11-17 16:06] LABS: Hep C Virus Ab w/Reflex Quant NEGATIVE s/c (NEGATIVE)
[2023-11-18 03:40] LABS: Apolipoprotein B 127 mg/dL (<90)
== END ==
PROVIDERS: Family Provider Family Medicine; PCP Family Medicine; Referring Provider Family Medicine; Visit Provider Family Medicine
DX: E78.2 Mixed hyperlipidemia (principal); M54.12 Radiculopathy, cervical region; Z12.5 Encounter for screening for malignant neoplasm of prostate; I25.10 Atherosclerotic heart disease of native coronary artery without angina pectoris; R31.9 Hematuria, unspecified; M06.9 Rheumatoid arthritis, unspecified; I73.9 Peripheral vascular disease, unspecified; K21.9 Gastro-esophageal reflux disease without esophagitis
CPT/HCPCS: 36415; 80053; 80061; 82043; 82172; 82570; 83036; 85025; 86803; G0103

== ENCOUNTER → 2023-12-23 12:18 | Outpatient (CLI) | payer MEDICARE, OTHER, SELFPAY ==
--- NOTE | 2023-12-23 12:21 | DI.RAD.S_ITS ---
PROCEDURE: XR DEXA AXIAL SKELETON INDICATIONS: Osteoporosis screening, 1st degree Family hx COMPARISON: None. FINDINGS: Lumbar Spine: Bone mineral density 0.845 g/cm2, T score -1.8. Left Hip: Bone mineral density 0.465 g/cm2, T score -3.5. Left Femoral Neck: Bone mineral density 0.643 g/cm2, T score -2.4. Right Hip: Bone mineral density 0.519 g/cm2, T score -3.0. Right Femoral Neck: Bone mineral density 0.679 g/cm2, T score -2.2,. Fracture Risk Calculation (when applicable): 10-year fracture risk of a major osteoporotic fracture 21 percent and of a hip fracture 32 percent. (T score greater or equal to -1.0 to: NORMAL) (T score from -1.1 to -2.4: OSTEOPENIA) (T score less than or equal to -2.5: OSTEOPOROSIS) IMPRESSION: Osteoporosis in the left hip as well severe osteopenia/borderline osteoporosis in the left femoral neck. Follow-up guidelines as follows: Osteoporosis: Consider a repeat DEXA and Vertebral Fracture Assessment (VFA) exam in 2 years or sooner if medically necessary, to reassess this patient's status. Osteopenia: Consider a repeat DEXA in 2-3 years to reassess this patient's status, or if there is a new clinical indication. Normal: Consider a repeat DEXA in 5 years or sooner, or if there is a new clinical indication. All treatment decisions require clinical judgment and consideration of individual patient factors, including patient preferences, comorbidities, previous drug use, risk factors not captured in the FRAX model (e.g., frailty, falls, vitamin D deficiency, increased bone turnover, interval significant decline in bone density ) and possible under- or over-estimation of fracture risk by FRAX. In addition, the NOF Guide recommends that FDA-approved medical therapies be considered in postmenopausal women and men age >= 50 years with a: * Hip or vertebral (clinical or morphometric) fracture * T-score of <=-2.5 at the spine or hip * Ten-year fracture probability by FRAX of >= 3% for hip fracture or >=20% for major osteoporotic fracture. People with diagnosed cases of osteoporosis or at high risk for fracture should have regular bone mineral density tests. For patients eligible for Medicare, routine testing is allowed once every 2 years. The testing frequency can be increased to one year for patients who have rapidly progressing disease, those who are receiving or discontinuing medical therapy to restore bone mass, or have additional risk factors. Dictated by: Greta Hu M.D. on 12/23/2023 at 19:21 Approved by: Greta Hu M.D. on 12/23/2023 at 19:22
== END ==
PROVIDERS: Family Provider Family Medicine; PCP Family Medicine; Referring Provider Family Medicine; Visit Provider Family Medicine
DX: M81.0 Age-related osteoporosis without current pathological fracture (principal)
CPT/HCPCS: 77080

== ENCOUNTER → 2024-01-13 15:12 | Outpatient (CLI) | payer MEDICARE, OTHER, SELFPAY ==
[2024-01-13 18:30] LABS: Vitamin D 25 Hydroxy (D3) 22.8 ng/mL (30.0-100.0)
== END ==
PROVIDERS: Family Provider Family Medicine; PCP Family Medicine; Referring Provider Physician Assistant; Visit Provider Physician Assistant
DX: M81.0 Age-related osteoporosis without current pathological fracture (principal)
CPT/HCPCS: 36415; 82306

== ENCOUNTER 2024-06-22 09:45 | Outpatient (RCR) | payer MEDICARE, OTHER, SELFPAY ==
--- NOTE | 2024-02-12 16:11 | PT.OIE ---
Current Diagnoses Spondylosis without myelopathy or radiculopathy, cervical region (02/12/24) Radiculopathy, cervical region (02/12/24) Abnormal posture (02/12/24) Weakness (02/12/24) Past Medical History (Last Reviewed 12/29/23 @ 09:46 by Nelson Munoz DO) Alcoholism Bilateral hand pain BPH w urinary obs/LUTS CAD (coronary artery disease) Cervical radiculopathy Chicken pox (1966) Chronic hand pain Chronic neck pain (1999) Degenerative joint disease of both hips Erectile dysfunction Facet arthropathy, cervical Facet arthropathy, lumbar Heart attack (2008) Hematuria Herniated nucleus pulposus, L4-5 Incomplete bladder emptying Measles (~1970) Rheumatoid arthritis Shoulder pain Trigger finger, right little finger (04/2020) UTI (urinary tract infection) Past Surgical History (Last Reviewed 12/29/23 @ 09:46 by Nelson Munoz DO) Anesthesia History of heart artery stent (2008) Hx of CABG Status post rotator cuff repair Visit Care Team Role Provider Type Pedro Mcbride MD Family Provider Physician Primary Care Provider Specialty: Family Practice Address: [address] [place] [address] Email: [email or web address] Nelson Munoz DO Attending Provider Physician Referring Provider Specialty: Interventional Radiology Physiatry Pain Management Address: [address] [place] [address] Email: [email or web address] Physical Therapy Initial Evaluation PT-OP-A Visit Information Start: 02/12/24 08:02 Freq: Status: Active Protocol: Document 02/12/24 09:46 SAK (Rec: 02/12/24 10:41 SAK [id number]) Out-Patient Physical Therapy Visit Information Visit Information Visit Type Initial Evaluation Visit Start Time 09:47 Visit Stop Time 10:45 Visit Number 1 Evaluation Information Evaluation Date 02/12/24 Precautions Precautions osteoporosis left hip, osteopenia right hip osteoporosis neck PT-OP-B Current Condition Start: 02/12/24 08:02 Freq: Status: Active Protocol: Document 02/12/24 09:46 SAK (Rec: 02/12/24 10:41 SAK [id number]) Current Condition History of Current Condition Onset Date chronic since 1989 Current Complaints neck pain, arm and hand numbness, thoracic and lumbar pain History of Current Condition chronic neck pain with radicular symptoms since [place]. Initially diagnosed with lateral epicondylitis, didn't look at neck. recent injection which helped a little. Prior injections in lumbar spine very help, no injections thoracic spine. Pain increases with sitting, bending. Has had PT in the past, has been helpful. Difficult to get motivated to do any regular exercise except golfing and walking. Uses heating pad, ice wrap. Also c /o occasional numbness in hands, varies from thumb only to entire hand. Sleeps on side, pillow under neck and head not shoulders. Has foam roller Prior Treatments and Tests Dexa scan neck MRI: stenosis and arthritis prior chiropractor but not recently Treatment Goals Patient/Caregiver Goals decrease pain and radicular symptoms Current Functional Impairments (Reported) Functional Limitations- ADL's pain and numbness Functional Limitations- Mobility/Gait limited short distanaces due to back pain Functional Limitations- Work/School retired, Functional Limitations- Recreation/ increased pain and radicular Hobbies symptoms with golfing and playing guitar Personal Factors Other Personal Factors That May Effect chronicity Therapy/Recovery PT-OP-C Subjective Start: 02/12/24 08:02 Freq: Status: Active Protocol: Document 02/12/24 09:46 [facility] (Rec: 02/12/24 16:10 [facility] [id number]) Patient Questionnaires Neck Disability Index NDI Score 40 OP-PT Pain Assessment Pain Assessment Grid Paper Pain Assessment Grid Completed Yes Location c/s, john UE's, t/s Intensity 4 Pain Aggravating Factors Position,ADL's,Activity Pain Alleviating Factors Heat,Inactivity PT-OP-H Neuro Start: 02/12/24 08:02 Freq: Status: Active Protocol: Document 02/12/24 09:46 [facility] (Rec: 02/12/24 16:10 [facility] [id number]) Sensation Evaluation Gross Sensation Sensation Description Paresthesia Dermatome Impairments C5,C6 Comments Summary Comments Patient reports having more difficulty holding onto pic for playing guitar, thumb often feels numb PT-OP-J Posture/Palpation/Skin Start: 02/12/24 08:02 Freq: Status: Active Protocol: Document 02/12/24 09:46 [facility] (Rec: 02/12/24 16:10 [facility] [id number]) Posture Evaluation Position Standing Head/C-Spine Posture Forward Head T-Spine Posture Increased Kyphosis L-Spine Posture Decreased Lordosis Shoulder Posture (L) Rounded,(R) Rounded Scapula Posture (L) Protracted,(R) Protracted Arm Posture (L) Internally Rotated,(R) Internally Rotated Pelvis Posture Posterior Tilted Comments Posture Comments poor gluteal muscle tone Palpation Assessment Location c/s Palpation Findings Soft Tissue Tightness,Muscle Guarding,Tenderness PT-OP-K Range of Motion Start: 02/12/24 08:02 Freq: Status: Active Protocol: Document 02/12/24 09:46 [facility] (Rec: 02/12/24 16:10 [facility] [id number]) Cervical Spine Range of Motion Cervical Spine Active Flexion 52 Extension 40 Rotation Left 35 Rotation Right 30 Lateral Flexion Left 12 Lateral Flexion Right 44 ROM Limitations Soft Tissue Tightness, Contracture,Pain Shoulder Goniometric Range of Motion Shoulder john Shoulder ROM WFL Yes PT-OP-L Special Tests Start: 02/12/24 08:02 Freq: Status: Active Protocol: Document 02/12/24 09:46 [facility] (Rec: 02/12/24 16:10 [facility] [id number]) Special Tests Cervical Spine Special Tests Traction Test Results + Comments decrease symptoms Foraminal Compression Test Results + Comments increased tightness and pain sensation Upper Limb Tension Test Comments perform next session PT-OP-M Strength Start: 02/12/24 08:02 Freq: Status: Active Protocol: Document 02/12/24 09:46 [facility] (Rec: 02/12/24 16:10 [facility] [id number]) Cervical Spine Strength Cervical Spine Manual Muscle Testing Flexion (C1-2) 4 Good Extension 4 Good Rotation Left 4 Good Rotation Right 4 Good Lateral Flexion Left (C3) 4 Good Lateral Flexion Right (C3) 4 Good Shoulder Strength Shoulder Manual Muscle Testing Left Flexion 4 Good Extension 4 Good Abduction (C5) 4 Good Adduction 4 Good External Rotation 4- Good- Internal Rotation 4 Good Horizontal Abduction 4 Good Horizontal Adduction 4 Good Right Flexion 4 Good Extension 4 Good Abduction (C5) 4 Good Adduction 4 Good External Rotation 4- Good- Internal Rotation 4 Good Elbow/Forearm Strength Elbow and Forearm Manual Muscle Testing john Flexion (C6) 4+ Good+ Extension (C7) 4+ Good+ Pronation 4+ Good+ Supination 4+ Good+ Wrist Strength Wrist Manual Muscle Testing john Flexion (C7) 4 Good Extension (C6) 4- Good- PT-OP-Q Treatments Start: 02/12/24 08:02 Freq: Status: Active Protocol: Document 02/12/24 09:46 [facility] (Rec: 02/12/24 10:41 [facility] [id number]) Self-Care/Home Management Treatment Education Patient Education Body Mechanics,Home Exercise Program,Pain Management, Posture Other Education chin tuck, open book, pec wendy and min stretch, prone shoulder ext, T; issued written HO PT-OP-R Modalities Start: 02/12/24 08:02 Freq: Status: Active Protocol: Document 02/12/24 09:46 [facility] (Rec: 02/12/24 16:10 [facility] [id number]) Hot Pack/Cold Pack Treatment Hot Pack Location c/s, t/s Patient Position Hooklying Patient Tolerance Good PT-OP-T Assessment and Plan Start: 02/12/24 08:02 Freq: Status: Active Protocol: Document 02/12/24 09:46 [facility] (Rec: 02/12/24 10:41 [facility] [id number]) Physical Therapy Assessment Rehab Potential Rehabilitation Potential Good Evaluation Complexity Number of Personal Factors/Comorbidities 1-2 Number of Body Systems Impaired 3 Clinical Presentation at Evaluation Evolving Impairments Impairments Posture,ROM,Soft Tissue Mobility,Strength Other Concerns Barriers to Rehabilitation patient is a smoker Goals Four Impairment weakness Short Term Goal (STG) Patient to be instructed in HEP for purposes of strengthening posterior chain musculature STG Duration 03/28/24 Windshield Wiper Repairer Goal (LTG) Patient will be independent and compliant with HEP and demonstrate improvement in strength to at least 4+/5 LTG Duration 05/12/24 Three Impairment postural dysfunction with forward head, rounded shoulders Short Term Goal (STG) Patient to be instructed in neutral postural alignment and importance followed by postural correction activities and exercises and strategies for improved postural alignment statically and with functional activities STG Duration 03/28/24 Windshield Wiper Repairer Goal (LTG) Patient to be able to demonstrate good postural awareness and ability to self- correct without cues and be independent and compliant with postural correction exercises and activities LTG Duration 05/12/24 Two Impairment Neck disability index score 40 % Windshield Wiper Repairer Goal (LTG) Decrease NDI to no greater than 20% as measure of improved activity tolerance and function LTG Duration 05/12/24 One Impairment neck pain with radicular symptoms Short Term Goal (STG) Decrease pain and radicular symptoms by at least 50% STG Duration 03/28/24 Windshield Wiper Repairer Goal (LTG) Decrease pain and radicular symptoms by at least 75% with all usual activities LTG Duration 05/12/24 Assessment Summary Assessment Patient presents to PT with function-limiting pain with radicular symptoms bilateral neck and UE's right greater than left. Cervial MRI in 2020 showed . Multilevel degenerative disc and facet disease, as well as uncovertebral hypertrophy. 2. 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 3. Multilevel foraminal stenoses, worst at C4-C5 and C6-C7, where there is associated intraforaminal nerve root compression. Recommend correlation with clinical symptoms to ascertain relevance of these findings. flexion 52, ext 38 , sidebend rightr 32, left 14, rot 32 right, 40 left. Patient reports recent diagnosis of osteoporosis in hips and osteopenia lumbar spine. Cervical spine not checked. No recent x-ray or MRI. Signs and symptoms consistent with worsening of MRI findings 2020, complicated by postural dysfunction and weakness. Feel patient will benefit from PT to address impairments as above to decrease his pain and radicular symptoms and improve his function. POC was discussed and patient was in agreement. Physical Therapy Plan Frequency and Duration Frequency of Treatment 2x/Week Duration of treatment (weeks) 12 Plan of Care Start Date 02/12/24 Plan of Care End Date 05/12/24 Therapeutic Interventions Therapeutic Interventions Home Exercise Program,Manual Therapy,Patient/Caregiver Education,Self-Care/Home Management,Soft Tissue Mobilization,Taping, Therapeutic Activities, Therapeutic Exercises Modalities Cold Pack/Ice Massage,Electric Stimulation,Hot Packs, Infrared Therapy,Traction- Mechanical,Ultrasound Next Visit Focus/Plan Next Note Type Treatment Note Next Visit Plan Review HEP, therapeutic exercises for postural correction, strengthening. Manual techniques and modalities PRN including gentle manual traction c/s, soft tissue mobilization throughout c/s and periscapular region.
--- NOTE | 2024-02-12 16:11 | PT.OPPOC ---
Physical, Occupational & Speech Therapy At [facility] Current Diagnoses Spondylosis without myelopathy or radiculopathy, cervical region (02/12/24) Radiculopathy, cervical region (02/12/24) Abnormal posture (02/12/24) Weakness (02/12/24) Visit Care Team Role Provider Type Pedro Mcbride MD Family Provider Physician Primary Care Provider Specialty: Family Practice Address: [address] [place] [address], [id number] Email: [email or web address] Nelson Munoz DO Attending Provider Physician Referring Provider Specialty: Interventional Radiology Physiatry Pain Management Address: [facility] [place], [address] Email: [email or web address] Plan Of Care PT-OP-B Current Condition Start: 02/12/24 08:02 Freq: Status: Active Protocol: Document 02/12/24 09:46 [facility] (Rec: 02/12/24 10:41 [facility] [id number]) Current Condition History of Current Condition Onset Date chronic since 1989 Current Complaints neck pain, arm and hand numbness, thoracic and lumbar pain History of Current Condition chronic neck pain with radicular symptoms since [place] in the [place]. Initially diagnosed with lateral epicondylitis, didn't look at neck. recent injection which helped a little. Prior injections in lumbar spine very help, no injections thoracic spine. Pain increases with sitting, bending. Has had PT in the past, has been helpful. Difficult to get motivated to do any regular exercise except golfing and walking. Uses heating pad, ice wrap. Also c /o occasional numbness in hands, varies from thumb only to entire hand. Sleeps on side, pillow under neck and head not shoulders. Has foam roller Prior Treatments and Tests Dexa scan neck MRI: stenosis and arthritis prior chiropractor but not recently Treatment Goals Patient/Caregiver Goals decrease pain and radicular symptoms Current Functional Impairments (Reported) Functional Limitations- ADL's pain and numbness Functional Limitations- Mobility/Gait limited short distanaces due to back pain Functional Limitations- Work/School retired, Functional Limitations- Recreation/ increased pain and radicular Hobbies symptoms with golfing and playing guitar Personal Factors Other Personal Factors That May Effect chronicity Therapy/Recovery PT-OP-T Assessment and Plan Start: 02/12/24 08:02 Freq: Status: Active Protocol: Document 02/12/24 09:46 [facility] (Rec: 02/12/24 10:41 [facility] [id number]) Physical Therapy Assessment Rehab Potential Rehabilitation Potential Good Evaluation Complexity Number of Personal Factors/Comorbidities 1-2 Number of Body Systems Impaired 3 Clinical Presentation at Evaluation Evolving Impairments Impairments Posture,ROM,Soft Tissue Mobility,Strength Other Concerns Barriers to Rehabilitation patient is a smoker Goals Four Impairment weakness Short Term Goal (STG) Patient to be instructed in HEP for purposes of strengthening posterior chain musculature STG Duration 03/28/24 Printed Circuit Board Assembler Goal (LTG) Patient will be independent and compliant with HEP and demonstrate improvement in strength to at least 4+/5 LTG Duration 05/12/24 Three Impairment postural dysfunction with forward head, rounded shoulders Short Term Goal (STG) Patient to be instructed in neutral postural alignment and importance followed by postural correction activities and exercises and strategies for improved postural alignment statically and with functional activities STG Duration 03/28/24 Senior Living Goal (LTG) Patient to be able to demonstrate good postural awareness and ability to self- correct without cues and be independent and compliant with postural correction exercises and activities LTG Duration 05/12/24 Two Impairment Neck disability index score 40 % Senior Living Goal (LTG) Decrease NDI to no greater than 20% as measure of improved activity tolerance and function LTG Duration 05/12/24 One Impairment neck pain with radicular symptoms Short Term Goal (STG) Decrease pain and radicular symptoms by at least 50% STG Duration 03/28/24 Senior Living Goal (LTG) Decrease pain and radicular symptoms by at least 75% with all usual activities LTG Duration 05/12/24 Assessment Summary Assessment Patient presents to PT with function-limiting pain with radicular symptoms bilateral neck and UE's right greater than left. Cervial MRI in 2020 showed . Multilevel degenerative disc and facet disease, as well as uncovertebral hypertrophy. 2. 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 3. Multilevel foraminal stenoses, worst at C4-C5 and C6-C7, where there is associated intraforaminal nerve root compression. Recommend correlation with clinical symptoms to ascertain relevance of these findings. flexion 52, ext 38 , sidebend rightr 32, left 14, rot 32 right, 40 left. Patient reports recent diagnosis of osteoporosis in hips and osteopenia lumbar spine. Cervical spine not checked. No recent x-ray or MRI. Signs and symptoms consistent with worsening of MRI findings 2020, complicated by postural dysfunction and weakness. Feel patient will benefit from PT to address impairments as above to decrease his pain and radicular symptoms and improve his function. POC was discussed and patient was in agreement. Physical Therapy Plan Frequency and Duration Frequency of Treatment 2x/Week Duration of treatment (weeks) 12 Plan of Care Start Date 02/12/24 Plan of Care End Date 05/12/24 Therapeutic Interventions Therapeutic Interventions Home Exercise Program,Manual Therapy,Patient/Caregiver Education,Self-Care/Home Management,Soft Tissue Mobilization,Taping, Therapeutic Activities, Therapeutic Exercises Modalities Cold Pack/Ice Massage,Electric Stimulation,Hot Packs, Infrared Therapy,Traction- Mechanical,Ultrasound Next Visit Focus/Plan Next Note Type Treatment Note Next Visit Plan Review HEP, therapeutic exercises for postural correction, strengthening. Manual techniques and modalities PRN including gentle manual traction c/s, soft tissue mobilization throughout c/s and periscapular region. Plan of Care Dates Plan of Care Start Date 02/12/24 Plan of Care End Date 05/12/24 Electronically Signed by: Emma Sidhu, PT 02/12/24 3203 If you are in agreement with this Plan of Care, please return a signed and dated copy. I have reviewed this Plan of Care and certify that the skilled therapy services above are required to meet the patient?s needs. Physician Signature Date Printed Name and Credentials Clinical Instructor Signature Printed Name and Credentials
--- NOTE | 2024-02-19 12:08 | PT.OTN ---
Current Diagnoses Spondylosis without myelopathy or radiculopathy, cervical region (02/19/24) Radiculopathy, cervical region (02/19/24) Abnormal posture (02/19/24) Weakness (02/19/24) Physical Therapy Treatment Note PT-OP-A Visit Information Start: 02/12/24 08:02 Freq: Status: Active Protocol: Document 02/19/24 10:41 SW (Rec: 02/19/24 12:05 [id number]) Out-Patient Physical Therapy Visit Information Visit Information Visit Type Treatment Note Visit Start Time 10:47 Visit Stop Time 11:42 Visit Number 3 Number of PSYCHOLOGICAL STRESS EVALUATOR Visits 1 Precautions Precautions osteoporosis left hip, osteopenia right hip osteoporosis neck PT-OP-B Current Condition Start: 02/12/24 08:02 Freq: Status: Active Protocol: Document 02/17/24 08:11 SAK (Rec: 02/17/24 09:01 SAK [id number]) Current Condition History of Current Condition Onset Date chronic since 1989 Current Complaints neck pain, arm and hand numbness, thoracic and lumbar pain History of Current Condition chronic neck pain with radicular symptoms since [place] in the [place]. Initially diagnosed with lateral epicondylitis, didn't look at neck. recent injection which helped a little. Prior injections in lumbar spine very help, no injections thoracic spine. Pain increases with sitting, bending. Has had PT in the past, has been helpful. Difficult to get motivated to do any regular exercise except golfing and walking. Uses heating pad, ice wrap. Also c /o occasional numbness in hands, varies from thumb only to entire hand. Sleeps on side, pillow under neck and head not shoulders. Has foam roller Prior Treatments and Tests Dexa scan neck MRI: stenosis and arthritis prior chiropractor but not recently Treatment Goals Patient/Caregiver Goals decrease pain and radicular symptoms PT-OP-C Subjective Start: 02/12/24 08:02 Freq: Status: Active Protocol: Document 02/19/24 10:41 SW (Rec: 02/19/24 12:05 [id number]) OP-PT Subjective Patient Comments Patient Comments Pt reports woke up with low back pain, took a muscle relaxer last night to sleep. Pt reports problems with numbness in hands for a long time, temp cold and uncomfortable. PT-OP-H Neuro Start: 02/12/24 08:02 Freq: Status: Active Protocol: Document 02/12/24 09:46 [facility] (Rec: 02/12/24 16:10 [facility] [id number]) Sensation Evaluation Gross Sensation Sensation Description Paresthesia Dermatome Impairments C5,C6 Comments Summary Comments Patient reports having more difficulty holding onto pic for playing guitar, thumb often feels numb PT-OP-J Posture/Palpation/Skin Start: 02/12/24 08:02 Freq: Status: Active Protocol: Document 02/12/24 09:46 [facility] (Rec: 02/12/24 16:10 [facility] [id number]) Posture Evaluation Position Standing Head/C-Spine Posture Forward Head T-Spine Posture Increased Kyphosis L-Spine Posture Decreased Lordosis Shoulder Posture (L) Rounded,(R) Rounded Scapula Posture (L) Protracted,(R) Protracted Arm Posture (L) Internally Rotated,(R) Internally Rotated Pelvis Posture Posterior Tilted Comments Posture Comments poor gluteal muscle tone Palpation Assessment Location c/s Palpation Findings Soft Tissue Tightness,Muscle Guarding,Tenderness PT-OP-K Range of Motion Start: 02/12/24 08:02 Freq: Status: Active Protocol: Document 02/12/24 09:46 [facility] (Rec: 02/12/24 16:10 [facility] [id number]) Cervical Spine Range of Motion Cervical Spine Active Flexion 52 Extension 40 Rotation Left 35 Rotation Right 30 Lateral Flexion Left 12 Lateral Flexion Right 44 ROM Limitations Soft Tissue Tightness, Contracture,Pain Shoulder Goniometric Range of Motion Shoulder john Shoulder ROM WFL Yes PT-OP-L Special Tests Start: 02/12/24 08:02 Freq: Status: Active Protocol: Document 02/12/24 09:46 [facility] (Rec: 02/12/24 16:10 [facility] [id number]) Special Tests Cervical Spine Special Tests Traction Test Results + Comments decrease symptoms Foraminal Compression Test Results + Comments increased tightness and pain sensation Upper Limb Tension Test Comments perform next session PT-OP-M Strength Start: 02/12/24 08:02 Freq: Status: Active Protocol: Document 02/12/24 09:46 [facility] (Rec: 02/12/24 16:10 [facility] [id number]) Cervical Spine Strength Cervical Spine Manual Muscle Testing Flexion (C1-2) 4 Good Extension 4 Good Rotation Left 4 Good Rotation Right 4 Good Lateral Flexion Left (C3) 4 Good Lateral Flexion Right (C3) 4 Good Shoulder Strength Shoulder Manual Muscle Testing Left Flexion 4 Good Extension 4 Good Abduction (C5) 4 Good Adduction 4 Good External Rotation 4- Good- Internal Rotation 4 Good Horizontal Abduction 4 Good Horizontal Adduction 4 Good Right Flexion 4 Good Extension 4 Good Abduction (C5) 4 Good Adduction 4 Good External Rotation 4- Good- Internal Rotation 4 Good Elbow/Forearm Strength Elbow and Forearm Manual Muscle Testing john Flexion (C6) 4+ Good+ Extension (C7) 4+ Good+ Pronation 4+ Good+ Supination 4+ Good+ Wrist Strength Wrist Manual Muscle Testing john Flexion (C7) 4 Good Extension (C6) 4- Good- PT-OP-Q Treatments Start: 02/12/24 08:02 Freq: Status: Active Protocol: Document 02/19/24 10:41 SW (Rec: 02/19/24 12:05 [id number]) Therapeutic Exercises Prone Exercises I, T Prone Exercise Name Verbal review for posterior strength carryover Comments pt education tactile/verbal feedback Sidelying Exercises open book Sidelying Exercise Name Open book Reps/Minutes x10 each Comments instructec pt in pain free range Sitting Exercises pulleys Sitting Exercise Name flexion and scaption Reps/Minutes 10x Comments cued for postural alignment, forward head Standing Exercises c/s AROM Reps/Minutes 5x ea Comments submax shoulder rolls Reps/Minutes 10x wall posture Standing Exercise Name wall posture, chin tuck ( slight increase in pain) Equipment Used towel Reps/Minutes x4' Comments pt education on setup for head support for forward head shoulder ext Equipment Used L2 TB Reps/Minutes x10 row Equipment Used L2 TB Reps/Minutes x10 countertop stretch Reps/Minutes 30 Comments pt education on muscles stretched, anatomy Manual Therapy Treatment Consent Patient gave verbal consent for manual Yes treatment Soft Tissue Mobilization Periscapular Body Location Periscapular, Traps, Rhomboid, LS Mobilization Type Myofascial Release Intensity/Depth Moderate Body Position Supine/sidelying Comments Focus on upper thoracic CS Body Location Cervical Spine, LS, paraspinals Mobilization Type Myofascial Release,Rolling, Strain/Counterstrain,Sustained Pressure,Trigger Point Release Intensity/Depth Moderate Body Position Supine Comments x2 pillows for cervical alignment Manual Traction Cervical Traction Details Cervical Spine Body Position Supine Reps/Duration 3x15 Comments Gentle, monitored for pt tolerance, no increase in symptoms Self-Care/Home Management Treatment Education Patient Education Body Mechanics,Home Exercise Program,Pain Management, Posture Other Education Pt education on modalities ( heat and Ice) for symptom management and post exercise sorenes, and the physiological effects of each. Pt education on sleep positioning in sidelying. Pt education on cervical spine postural alignment and A&P. Pt education on HEP time frame 6- 8 weeks of consitancy with HEP to start noticing strength gains. HEP tolerance. Sleep positioning PT-OP-R Modalities Start: 02/12/24 08:02 Freq: Status: Active Protocol: Document 02/19/24 10:41 SW (Rec: 02/19/24 12:07 [id number]) Hot Pack/Cold Pack Treatment Hot Pack Location c/s, t/s Patient Position Hooklying Patient Tolerance Good Comments x15', wedge under LEs, oconnell within reach PT-OP-T Assessment and Plan Start: 02/12/24 08:02 Freq: Status: Active Protocol: Document 02/19/24 10:41 SW (Rec: 02/19/24 12:05 [id number]) Physical Therapy Assessment Goals Four Impairment weakness Short Term Goal (STG) Patient to be instructed in HEP for purposes of strengthening posterior chain musculature STG Duration 03/28/24 Senior Report Developer Goal (LTG) Patient will be independent and compliant with HEP and demonstrate improvement in strength to at least 4+/5 LTG Duration 05/12/24 Three Impairment postural dysfunction with forward head, rounded shoulders Short Term Goal (STG) Patient to be instructed in neutral postural alignment and importance followed by postural correction activities and exercises and strategies for improved postural alignment statically and with functional activities STG Duration 03/28/24 Residential Goal (LTG) Patient to be able to demonstrate good postural awareness and ability to self- correct without cues and be independent and compliant with postural correction exercises and activities LTG Duration 05/12/24 Two Impairment Neck disability index score 40 % Residential Goal (LTG) Decrease NDI to no greater than 20% as measure of improved activity tolerance and function LTG Duration 05/12/24 One Impairment neck pain with radicular symptoms Short Term Goal (STG) Decrease pain and radicular symptoms by at least 50% STG Duration 03/28/24 Senior Report Developer Goal (LTG) Decrease pain and radicular symptoms by at least 75% with all usual activities LTG Duration 05/12/24 Assessment Summary Assessment Initiated manual work today to decrease pt pain and increase ROM. Pt has palpable tension and restrictions along cervical paraspinals and periscapular muscles, decreased tension post manual, though not relieved, pt may benefit from continued manual work to address restrictions, improve ROM, and decrease pt pain. Pt had some increase in cervical discomfort as muscles fatigued during exercises, cues throughout session for postural alignment. Pt education on modalities (heat and ice) prn for symptom management. Ended session with heat to relax cervical muscles post exercises. Physical Therapy Plan Frequency and Duration Frequency of Treatment 2x/Week Duration of treatment (weeks) 12 Plan of Care Start Date 02/12/24 Plan of Care End Date 05/12/24 Therapeutic Interventions Therapeutic Interventions Home Exercise Program,Manual Therapy,Patient/Caregiver Education,Self-Care/Home Management,Soft Tissue Mobilization,Taping, Therapeutic Activities, Therapeutic Exercises Modalities Cold Pack/Ice Massage,Electric Stimulation,Hot Packs, Infrared Therapy,Traction- Mechanical,Ultrasound Next Visit Focus/Plan Next Note Type Treatment Note Next Visit Plan Consider: manual for increased ROM and symptom management. Progress postural corrective exercises within pt tolerance and PT POC.
--- NOTE | 2024-02-24 17:15 | PT.OTN ---
Current Diagnoses Spondylosis without myelopathy or radiculopathy, cervical region (02/24/24) Radiculopathy, cervical region (02/24/24) Abnormal posture (02/24/24) Weakness (02/24/24) Physical Therapy Treatment Note PT-OP-A Visit Information Start: 02/12/24 08:02 Freq: Status: Active Protocol: Document 02/24/24 09:47 SW (Rec: 02/24/24 10:56 [id number]) Out-Patient Physical Therapy Visit Information Visit Information Visit Type Treatment Note Visit Note pt running late Visit Start Time 09:49 Visit Stop Time 10:44 Visit Number 4 Number of STATE COMPTROLLER Visits 2 Precautions Precautions osteoporosis left hip, osteopenia right hip osteoporosis neck PT-OP-B Current Condition Start: 02/12/24 08:02 Freq: Status: Active Protocol: Document 02/17/24 08:11 SAK (Rec: 02/17/24 09:01 SAK [id number]) Current Condition History of Current Condition Onset Date chronic since 1989 Current Complaints neck pain, arm and hand numbness, thoracic and lumbar pain History of Current Condition chronic neck pain with radicular symptoms [place] Initially diagnosed with lateral epicondylitis, didn't look at neck. recent injection which helped a little. Prior injections in lumbar spine very help, no injections thoracic spine. Pain increases with sitting, bending. Has had PT in the past, has been helpful. Difficult to get motivated to do any regular exercise except golfing and walking. Uses heating pad, ice wrap. Also c /o occasional numbness in hands, varies from thumb only to entire hand. Sleeps on side, pillow under neck and head not shoulders. Has foam roller Prior Treatments and Tests Dexa scan neck MRI: stenosis and arthritis prior chiropractor but not recently Treatment Goals Patient/Caregiver Goals decrease pain and radicular symptoms PT-OP-C Subjective Start: 02/12/24 08:02 Freq: Status: Active Protocol: Document 02/24/24 09:47 SW (Rec: 02/24/24 10:56 [id number]) OP-PT Subjective Patient Comments Patient Comments Pt reports being sore today, worked on bathroom project over the weekend. Pain level 3 /10, left shoulder woke up sore today. 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, thumb often feels numb PT-OP-J Posture/Palpation/Skin Start: 02/12/24 08:02 Freq: Status: Active Protocol: Document 02/12/24 09:46 [facility] (Rec: 02/12/24 16:10 [facility] [id number]) Posture Evaluation Position Standing Head/C-Spine Posture Forward Head T-Spine Posture Increased Kyphosis L-Spine Posture Decreased Lordosis Shoulder Posture (L) Rounded,(R) Rounded Scapula Posture (L) Protracted,(R) Protracted Arm Posture (L) Internally Rotated,(R) Internally Rotated Pelvis Posture Posterior Tilted Comments Posture Comments poor gluteal muscle tone Palpation Assessment Location c/s Palpation Findings Soft Tissue Tightness,Muscle Guarding,Tenderness PT-OP-K Range of Motion Start: 02/12/24 08:02 Freq: Status: Active Protocol: Document 02/12/24 09:46 [facility] (Rec: 02/12/24 16:10 [facility] [id number]) Cervical Spine Range of Motion Cervical Spine Active Flexion 52 Extension 40 Rotation Left 35 Rotation Right 30 Lateral Flexion Left 12 Lateral Flexion Right 44 ROM Limitations Soft Tissue Tightness, Contracture,Pain Shoulder Goniometric Range of Motion Shoulder john Shoulder ROM WFL Yes PT-OP-L Special Tests Start: 02/12/24 08:02 Freq: Status: Active Protocol: Document 02/12/24 09:46 [facility] (Rec: 02/12/24 16:10 [facility] [id number]) Special Tests Cervical Spine Special Tests Traction Test Results + Comments decrease symptoms Foraminal Compression Test Results + Comments increased tightness and pain sensation Upper Limb Tension Test Comments perform next session PT-OP-M Strength Start: 02/12/24 08:02 Freq: Status: Active Protocol: Document 02/12/24 09:46 [facility] (Rec: 02/12/24 16:10 [facility] [id number]) Cervical Spine Strength Cervical Spine Manual Muscle Testing Flexion (C1-2) 4 Good Extension 4 Good Rotation Left 4 Good Rotation Right 4 Good Lateral Flexion Left (C3) 4 Good Lateral Flexion Right (C3) 4 Good Shoulder Strength Shoulder Manual Muscle Testing Left Flexion 4 Good Extension 4 Good Abduction (C5) 4 Good Adduction 4 Good External Rotation 4- Good- Internal Rotation 4 Good Horizontal Abduction 4 Good Horizontal Adduction 4 Good Right Flexion 4 Good Extension 4 Good Abduction (C5) 4 Good Adduction 4 Good External Rotation 4- Good- Internal Rotation 4 Good Elbow/Forearm Strength Elbow and Forearm Manual Muscle Testing john Flexion (C6) 4+ Good+ Extension (C7) 4+ Good+ Pronation 4+ Good+ Supination 4+ Good+ Wrist Strength Wrist Manual Muscle Testing john Flexion (C7) 4 Good Extension (C6) 4- Good- PT-OP-Q Treatments Start: 02/12/24 08:02 Freq: Status: Active Protocol: Document 02/24/24 09:47 SW (Rec: 02/24/24 10:56 [id number]) Therapeutic Exercises Supine Exercises serratus punches Supine Exercise Name Serratus punches (issued HEP HO) Side bilateral Resistance 1. AROM 2. 2# weight Reps/Minutes 1. x10 2. x10 Comments cues for form, slow eccentric control Prone Exercises I, T Prone Exercise Name I,T (Issued HEP HO) Reps/Minutes x10 Standing Exercises wall angels Standing Exercise Name wall angels c/s AROM Reps/Minutes 5x ea Comments submax shoulder rolls Reps/Minutes 10x wall posture Standing Exercise Name chin tuck Side bilateral Comments improved tolerance row Equipment Used L2 TB Reps/Minutes 3x10 Manual Therapy Treatment Consent Patient gave verbal consent for manual Yes treatment Soft Tissue Mobilization Shoulder Body Location L shoulder, paraspinals Mobilization Type Myofascial Release,Strain/ Counterstrain,Sustained Pressure,Trigger Point Release Intensity/Depth Moderate Body Position Sidelying Comments MWM Periscapular Body Location Periscapular, Traps, Rhomboid Mobilization Type Myofascial Release Intensity/Depth Moderate Body Position Supine/sidelying Comments Focus on upper thoracic PT-OP-R Modalities Start: 02/12/24 08:02 Freq: Status: Active Protocol: Document 02/24/24 09:47 SW (Rec: 02/24/24 10:56 [id number]) Hot Pack/Cold Pack Treatment Hot Pack Location c/s, t/s Patient Position Hooklying Patient Tolerance Good Comments x15', wedge under LEs, oconnell within reach PT-OP-T Assessment and Plan Start: 02/12/24 08:02 Freq: Status: Active Protocol: Document 02/24/24 09:47 (Rec: 02/24/24 10:56 [id number]) Physical Therapy Assessment Goals Four Impairment weakness Short Term Goal (STG) Patient to be instructed in HEP for purposes of strengthening posterior chain musculature STG Duration 03/28/24 Pallet Stone Positioner Goal (LTG) Patient will be independent and compliant with HEP and demonstrate improvement in strength to at least 4+/5 LTG Duration 05/12/24 Three Impairment postural dysfunction with forward head, rounded shoulders Short Term Goal (STG) Patient to be instructed in neutral postural alignment and importance followed by postural correction activities and exercises and strategies for improved postural alignment statically and with functional activities STG Duration 03/28/24 [facility] Goal (LTG) Patient to be able to demonstrate good postural awareness and ability to self- correct without cues and be independent and compliant with postural correction exercises and activities LTG Duration 05/12/24 Two Impairment Neck disability index score 40 % [facility] Goal (LTG) Decrease NDI to no greater than 20% as measure of improved activity tolerance and function LTG Duration 05/12/24 One Impairment neck pain with radicular symptoms Short Term Goal (STG) Decrease pain and radicular symptoms by at least 50% STG Duration 03/28/24 Pallet Stone Positioner Goal (LTG) Decrease pain and radicular symptoms by at least 75% with all usual activities LTG Duration 05/12/24 Assessment Summary Assessment Pt had good feedback to manual therapy today, decreased pain , decreased tension, and improved ROM post. Pt tolerated exercises better this session, without increase in pain post. Pt reports good tolerance to HEP, reviewed and issued HEP HO for prone Is , Ts, and initiated and issued HEP for serratus punches today for strengthening. Physical Therapy Plan Frequency and Duration Frequency of Treatment 2x/Week Duration of treatment (weeks) 12 Plan of Care Start Date 02/12/24 Plan of Care End Date 05/12/24 Therapeutic Interventions Therapeutic Interventions Home Exercise Program,Manual Therapy,Patient/Caregiver Education,Self-Care/Home Management,Soft Tissue Mobilization,Taping, Therapeutic Activities, Therapeutic Exercises Modalities Cold Pack/Ice Massage,Electric Stimulation,Hot Packs, Infrared Therapy,Traction- Mechanical,Ultrasound Next Visit Focus/Plan Next Note Type Treatment Note Next Visit Plan Consider: Shoulder ER, assess pt tolerance to new HEP exercises issued today (Is, Ts , serratus punches) Progress postural corrective exercises within pt tolerance and PT POC.
--- NOTE | 2024-02-26 10:43 | PT.OTN ---
Current Diagnoses Spondylosis without myelopathy or radiculopathy, cervical region (02/26/24) Radiculopathy, cervical region (02/26/24) Abnormal posture (02/26/24) Weakness (02/26/24) Physical Therapy Treatment Note PT-OP-A Visit Information Start: 02/12/24 08:02 Freq: Status: Active Protocol: Document 02/26/24 09:44 SAK (Rec: 02/26/24 10:43 SAK [id number]) Out-Patient Physical Therapy Visit Information Visit Information Visit Type Treatment Note Visit Start Time 09:45 Visit Number 5 Number of EMPLOYMENT ADVISOR Visits 0 Evaluation Information Evaluation Date 02/12/24 Precautions Precautions osteoporosis left hip, osteopenia right hip osteoporosis neck PT-OP-B Current Condition Start: 02/12/24 08:02 Freq: Status: Active Protocol: Document 02/17/24 08:11 SAK (Rec: 02/17/24 09:01 SAK [id number]) Current Condition History of Current Condition Onset Date chronic since 1989 Current Complaints neck pain, arm and hand numbness, thoracic and lumbar pain History of Current Condition 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 Initially diagnosed with lateral epicondylitis, didn't look at neck. recent injection which helped a little. Prior injections in lumbar spine very help, no injections thoracic spine. Pain increases with sitting, bending. Has had PT in the past, has been helpful. Difficult to get motivated to do any regular exercise except golfing and walking. Uses heating pad, ice wrap. Also c /o occasional numbness in hands, varies from thumb only to entire hand. Sleeps on side, pillow under neck and head not shoulders. Has foam roller Prior Treatments and Tests Dexa scan neck MRI: stenosis and arthritis prior chiropractor but not recently Treatment Goals Patient/Caregiver Goals decrease pain and radicular symptoms PT-OP-C Subjective Start: 02/12/24 08:02 Freq: Status: Active Protocol: Document 02/26/24 09:44 SAK (Rec: 02/26/24 10:43 SAK [id number]) OP-PT Subjective Patient Comments Patient Comments Back sore today, neck holding steady, not a tremendous amount of pain. Neck turns better to the left than it does to the right. Compliant to HEP PT-OP-H Neuro Start: 02/12/24 08:02 Freq: Status: Active Protocol: Document 02/12/24 09:46 [facility] (Rec: 02/12/24 16:10 [facility] [id number]) Sensation Evaluation Gross Sensation Sensation Description Paresthesia Dermatome Impairments C5,C6 Comments Summary Comments Patient reports having more difficulty holding onto pic for playing guitar, thumb often feels numb PT-OP-J Posture/Palpation/Skin Start: 02/12/24 08:02 Freq: Status: Active Protocol: Document 02/12/24 09:46 [facility] (Rec: 02/12/24 16:10 [facility] [id number]) Posture Evaluation Position Standing Head/C-Spine Posture Forward Head T-Spine Posture Increased Kyphosis L-Spine Posture Decreased Lordosis Shoulder Posture (L) Rounded,(R) Rounded Scapula Posture (L) Protracted,(R) Protracted Arm Posture (L) Internally Rotated,(R) Internally Rotated Pelvis Posture Posterior Tilted Comments Posture Comments poor gluteal muscle tone Palpation Assessment Location c/s Palpation Findings Soft Tissue Tightness,Muscle Guarding,Tenderness PT-OP-K Range of Motion Start: 02/12/24 08:02 Freq: Status: Active Protocol: Document 02/12/24 09:46 [facility] (Rec: 02/12/24 16:10 [facility] [id number]) Cervical Spine Range of Motion Cervical Spine Active Flexion 52 Extension 40 Rotation Left 35 Rotation Right 30 Lateral Flexion Left 12 Lateral Flexion Right 44 ROM Limitations Soft Tissue Tightness, Contracture,Pain Shoulder Goniometric Range of Motion Shoulder john Shoulder ROM WFL Yes PT-OP-L Special Tests Start: 02/12/24 08:02 Freq: Status: Active Protocol: Document 02/12/24 09:46 [facility] (Rec: 02/12/24 16:10 [facility] [id number]) Special Tests Cervical Spine Special Tests Traction Test Results + Comments decrease symptoms Foraminal Compression Test Results + Comments increased tightness and pain sensation Upper Limb Tension Test Comments perform next session PT-OP-M Strength Start: 02/12/24 08:02 Freq: Status: Active Protocol: Document 02/12/24 09:46 [facility] (Rec: 02/12/24 16:10 [facility] [id number]) Cervical Spine Strength Cervical Spine Manual Muscle Testing Flexion (C1-2) 4 Good Extension 4 Good Rotation Left 4 Good Rotation Right 4 Good Lateral Flexion Left (C3) 4 Good Lateral Flexion Right (C3) 4 Good Shoulder Strength Shoulder Manual Muscle Testing Left Flexion 4 Good Extension 4 Good Abduction (C5) 4 Good Adduction 4 Good External Rotation 4- Good- Internal Rotation 4 Good Horizontal Abduction 4 Good Horizontal Adduction 4 Good Right Flexion 4 Good Extension 4 Good Abduction (C5) 4 Good Adduction 4 Good External Rotation 4- Good- Internal Rotation 4 Good Elbow/Forearm Strength Elbow and Forearm Manual Muscle Testing john Flexion (C6) 4+ Good+ Extension (C7) 4+ Good+ Pronation 4+ Good+ Supination 4+ Good+ Wrist Strength Wrist Manual Muscle Testing john Flexion (C7) 4 Good Extension (C6) 4- Good- PT-OP-Q Treatments Start: 02/12/24 08:02 Freq: Status: Active Protocol: Document 02/26/24 09:44 [facility] (Rec: 02/26/24 10:43 [facility] [id number]) Cardio Equipment Upper Body Ergometer (UBE) Duration (Minutes) 6 RPM 90 Seat Position 11 Height 2.5 Other 2 min fwd, 4 min bckd, cues for neutral c/s. Towel roll vertical at t/s Gym Equipment Cable Column (Body Solid) lat pull Details cues for scapular activation Resistance 20 Reps/Time 10x row Details cues for scapular activation, postural alignment Resistance 10 Reps/Time 10x Therapeutic Exercises Supine Exercises serratus punches Supine Exercise Name verbal review Prone Exercises I, T Prone Exercise Name I,T Reps/Minutes x10 Comments cues for scapular activation Sidelying Exercises open book Sidelying Exercise Name HEP; verbal review technique Standing Exercises overhead press Resistance 4# Reps/Minutes 10x Comments cues for neutral posture doorway stretch Reps/Minutes x30 c/s AROM Reps/Minutes 5x ea Comments submax wall posture Standing Exercise Name chin tuck Side bilateral Equipment Used towel Comments improved tolerance Manual Therapy Treatment Soft Tissue Mobilization Shoulder Body Location L shoulder, paraspinals Mobilization Type Myofascial Release,Strain/ Counterstrain,Sustained Pressure,Trigger Point Release Intensity/Depth Moderate Body Position Sidelying Comments MWM Periscapular Body Location Periscapular, Traps, Rhomboid Mobilization Type Myofascial Release Intensity/Depth Moderate Body Position Supine/sidelying Comments Focus on upper thoracic Self-Care/Home Management Treatment Education Patient Education Body Mechanics,Home Exercise Program,Pain Management, Posture PT-OP-R Modalities Start: 02/12/24 08:02 Freq: Status: Active Protocol: Document 02/26/24 09:44 [facility] (Rec: 02/26/24 10:43 [facility] [id number]) Electric Stimulation Electric Stimulation Interferential Current (IFC) Intensity 9 Target/Sweep Sweep Patient Position Supine Combined With Heat/Cold Hot Pack Hot Pack/Cold Pack Treatment Hot Pack Location c/s, t/s Patient Position Hooklying Patient Tolerance Good Comments x15', wedge under LEs, oconnell within reach PT-OP-T Assessment and Plan Start: 02/12/24 08:02 Freq: Status: Active Protocol: Document 02/26/24 09:44 SAK (Rec: 02/26/24 10:43 [facility] [id number]) Physical Therapy Assessment Goals Four Impairment weakness Short Term Goal (STG) Patient to be instructed in HEP for purposes of strengthening posterior chain musculature STG Duration 03/28/24 Shoulder Joiner Goal (LTG) Patient will be independent and compliant with HEP and demonstrate improvement in strength to at least 4+/5 LTG Duration 05/12/24 Three Impairment postural dysfunction with forward head, rounded shoulders Short Term Goal (STG) Patient to be instructed in neutral postural alignment and importance followed by postural correction activities and exercises and strategies for improved postural alignment statically and with functional activities STG Duration 03/28/24 Shoulder Joiner Goal (LTG) Patient to be able to demonstrate good postural awareness and ability to self- correct without cues and be independent and compliant with postural correction exercises and activities LTG Duration 05/12/24 Two Impairment Neck disability index score 40 % Shoulder Joiner Goal (LTG) Decrease NDI to no greater than 20% as measure of improved activity tolerance and function LTG Duration 05/12/24 One Impairment neck pain with radicular symptoms Short Term Goal (STG) Decrease pain and radicular symptoms by at least 50% STG Duration 03/28/24 Shoulder Joiner Goal (LTG) Decrease pain and radicular symptoms by at least 75% with all usual activities LTG Duration 05/12/24 Assessment Summary Assessment Patient reporting decreased pain after PT. Moderate cues for postural correction, scapular activation with strengthening exercises. Physical Therapy Plan Frequency and Duration Frequency of Treatment 2x/Week Duration of treatment (weeks) 12 Plan of Care Start Date 02/12/24 Plan of Care End Date 05/12/24 Therapeutic Interventions Therapeutic Interventions Home Exercise Program,Manual Therapy,Patient/Caregiver Education,Self-Care/Home Management,Soft Tissue Mobilization,Taping, Therapeutic Activities, Therapeutic Exercises Modalities Cold Pack/Ice Massage,Electric Stimulation,Hot Packs, Infrared Therapy,Traction- Mechanical,Ultrasound Next Visit Focus/Plan Next Note Type Treatment Note Next Visit Plan Add shoulder ER, progress postural correction and posterior chain strengthening per POC.
--- NOTE | 2024-03-02 09:43 | PT.OTN ---
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 Initially diagnosed with lateral epicondylitis, didn't look at neck. recent injection which helped a little. Prior injections in lumbar spine very help, no injections thoracic spine. Pain increases with sitting, bending. Has had PT in the past, has been helpful. Difficult to get motivated to do any regular exercise except golfing and walking. Uses heating pad, ice wrap. Also c /o occasional numbness in hands, varies from thumb only to entire hand. Sleeps on side, pillow under neck and head not shoulders. Has foam roller Prior Treatments and Tests Dexa scan neck MRI: stenosis and arthritis prior chiropractor but not recently Treatment Goals Patient/Caregiver Goals decrease pain and radicular symptoms PT-OP-C Subjective Start: 02/12/24 08:02 Freq: Status: Active Protocol: Document 03/02/24 09:05 MB (Rec: 03/02/24 09:37 MB [id number]) OP-PT Subjective Patient Comments Patient Comments Pt states that therapy has been helpful. Pt is smoking and he is having a hard time stopping. He has stopped drinking alcohol 4 years ago. PT-OP-H Neuro Start: 02/12/24 08:02 Freq: Status: Active Protocol: Document 02/12/24 09:46 [facility] (Rec: 02/12/24 16:10 [facility] [id number]) Sensation Evaluation Gross Sensation Sensation Description Paresthesia Dermatome Impairments C5,C6 Comments Summary Comments Patient reports having more difficulty holding onto pic for playing guitar, thumb often feels numb PT-OP-J Posture/Palpation/Skin Start: 02/12/24 08:02 Freq: Status: Active Protocol: Document 02/12/24 09:46 [facility] (Rec: 02/12/24 16:10 [facility] [id number]) Posture Evaluation Position Standing Head/C-Spine Posture Forward Head T-Spine Posture Increased Kyphosis L-Spine Posture Decreased Lordosis Shoulder Posture (L) Rounded,(R) Rounded Scapula Posture (L) Protracted,(R) Protracted Arm Posture (L) Internally Rotated,(R) Internally Rotated Pelvis Posture Posterior Tilted Comments Posture Comments poor gluteal muscle tone Palpation Assessment Location c/s Palpation Findings Soft Tissue Tightness,Muscle Guarding,Tenderness PT-OP-K Range of Motion Start: 02/12/24 08:02 Freq: Status: Active Protocol: Document 02/12/24 09:46 [facility] (Rec: 02/12/24 16:10 [facility] [id number]) Cervical Spine Range of Motion Cervical Spine Active Flexion 52 Extension 40 Rotation Left 35 Rotation Right 30 Lateral Flexion Left 12 Lateral Flexion Right 44 ROM Limitations Soft Tissue Tightness, Contracture,Pain Shoulder Goniometric Range of Motion Shoulder john Shoulder ROM WFL Yes PT-OP-L Special Tests Start: 02/12/24 08:02 Freq: Status: Active Protocol: Document 02/12/24 09:46 [facility] (Rec: 02/12/24 16:10 [facility] [id number]) Special Tests Cervical Spine Special Tests Traction Test Results + Comments decrease symptoms Foraminal Compression Test Results + Comments increased tightness and pain sensation Upper Limb Tension Test Comments perform next session PT-OP-M Strength Start: 02/12/24 08:02 Freq: Status: Active Protocol: Document 02/12/24 09:46 [facility] (Rec: 02/12/24 16:10 [facility] [id number]) Cervical Spine Strength Cervical Spine Manual Muscle Testing Flexion (C1-2) 4 Good Extension 4 Good Rotation Left 4 Good Rotation Right 4 Good Lateral Flexion Left (C3) 4 Good Lateral Flexion Right (C3) 4 Good Shoulder Strength Shoulder Manual Muscle Testing Left Flexion 4 Good Extension 4 Good Abduction (C5) 4 Good Adduction 4 Good External Rotation 4- Good- Internal Rotation 4 Good Horizontal Abduction 4 Good Horizontal Adduction 4 Good Right Flexion 4 Good Extension 4 Good Abduction (C5) 4 Good Adduction 4 Good External Rotation 4- Good- Internal Rotation 4 Good Elbow/Forearm Strength Elbow and Forearm Manual Muscle Testing john Flexion (C6) 4+ Good+ Extension (C7) 4+ Good+ Pronation 4+ Good+ Supination 4+ Good+ Wrist Strength Wrist Manual Muscle Testing john Flexion (C7) 4 Good Extension (C6) 4- Good- PT-OP-Q Treatments Start: 02/12/24 08:02 Freq: Status: Active Protocol: Document 03/02/24 09:05 MB (Rec: 03/02/24 09:37 MB [id number]) Manual Therapy Treatment Consent Patient gave verbal consent for manual Yes treatment Other Other Manual Treatments Pt supine: B first rib isometric, grade II-III cervical PA and upglide mobs, STM and positional release B upper traps, SCM, cervical paraspinals, pects, infraspinatus, positional release thoracic spine and ribs, more tension right first rib and right SCM, right pect PT-OP-R Modalities Start: 02/12/24 08:02 Freq: Status: Active Protocol: Document 02/26/24 09:44 SAK (Rec: 02/26/24 10:43 SAK [id number]) Electric Stimulation Electric Stimulation Interferential Current (IFC) Intensity 9 Target/Sweep Sweep Patient Position Supine Combined With Heat/Cold Hot Pack Hot Pack/Cold Pack Treatment Hot Pack Location c/s, t/s Patient Position Hooklying Patient Tolerance Good Comments x15', wedge under LEs, oconnell within reach PT-OP-T Assessment and Plan Start: 02/12/24 08:02 Freq: Status: Active Protocol: Document 03/02/24 09:05 MB (Rec: 03/02/24 09:37 MB [id number]) Physical Therapy Assessment Goals Four Impairment weakness Short Term Goal (STG) Patient to be instructed in HEP for purposes of strengthening posterior chain musculature STG Duration 03/28/24 Long-Term Goal (LTG) Patient will be independent and compliant with HEP and demonstrate improvement in strength to at least 4+/5 LTG Duration 05/12/24 Three Impairment postural dysfunction with forward head, rounded shoulders Short Term Goal (STG) Patient to be instructed in neutral postural alignment and importance followed by postural correction activities and exercises and strategies for improved postural alignment statically and with functional activities STG Duration 03/28/24 Long-Term Goal (LTG) Patient to be able to demonstrate good postural awareness and ability to self- correct without cues and be independent and compliant with postural correction exercises and activities LTG Duration 05/12/24 Two Impairment Neck disability index score 40 % Client Care Representative Goal (LTG) Decrease NDI to no greater than 20% as measure of improved activity tolerance and function LTG Duration 05/12/24 One Impairment neck pain with radicular symptoms Short Term Goal (STG) Decrease pain and radicular symptoms by at least 50% STG Duration 03/28/24 Client Care Representative Goal (LTG) Decrease pain and radicular symptoms by at least 75% with all usual activities LTG Duration 05/12/24 Assessment Summary Assessment Pt was placed on this PT's schedule for one treatment and 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 Con't per primary PT POC . Physical Therapy Plan Frequency and Duration Frequency of Treatment 2x/Week Duration of treatment (weeks) 12 Plan of Care Start Date 02/12/24 Plan of Care End Date 05/12/24 Therapeutic Interventions Therapeutic Interventions Home Exercise Program,Manual Therapy,Patient/Caregiver Education,Self-Care/Home Management,Soft Tissue Mobilization,Taping, Therapeutic Activities, Therapeutic Exercises Modalities Cold Pack/Ice Massage,Electric Stimulation,Hot Packs, Infrared Therapy,Traction- Mechanical,Ultrasound Next Visit Focus/Plan Next Note Type Treatment Note Next Visit Plan Con't per primary PT's plan: Add shoulder ER, progress postural correction and posterior chain strengthening per POC.
--- NOTE | 2024-03-04 13:45 | PT.OTN ---
Current Diagnoses Spondylosis without myelopathy or radiculopathy, cervical region (03/04/24) Radiculopathy, cervical region (03/04/24) Abnormal posture (03/04/24) Weakness (03/04/24) Physical Therapy Treatment Note PT-OP-A Visit Information Start: 02/12/24 08:02 Freq: Status: Active Protocol: Document 03/04/24 13:02 SP (Rec: 03/04/24 13:47 SP [id number]) Out-Patient Physical Therapy Visit Information Visit Information Visit Type Treatment Note Visit Note Progress note by 03/14/24 Medicare 07/29 before KX Visit Start Time 13:02 Visit Stop Time 13:45 Visit Number 7 Number of [employer]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 Initially diagnosed with lateral epicondylitis, didn't look at neck. recent injection which helped a little. Prior injections in lumbar spine very help, no injections thoracic spine. Pain increases with sitting, bending. Has had PT in the past, has been helpful. Difficult to get motivated to do any regular exercise except golfing and walking. Uses heating pad, ice wrap. Also c /o occasional numbness in hands, varies from thumb only to entire hand. Sleeps on side, pillow under neck and head not shoulders. Has foam roller Prior Treatments and Tests Dexa scan neck MRI: stenosis and arthritis prior chiropractor but not recently Treatment Goals Patient/Caregiver Goals decrease pain and radicular symptoms PT-OP-C Subjective Start: 02/12/24 08:02 Freq: Status: Active Protocol: Document 03/04/24 13:02 SP (Rec: 03/04/24 13:47 SP [id number]) OP-PT Subjective Patient Comments Patient Comments Pt reports performing some HEP over foam roller. PT-OP-H Neuro Start: 02/12/24 08:02 Freq: Status: Active Protocol: Document 02/12/24 09:46 [facility] (Rec: 02/12/24 16:10 [facility] [id number]) Sensation Evaluation Gross Sensation Sensation Description Paresthesia Dermatome Impairments C5,C6 Comments Summary Comments Patient reports having more difficulty holding onto pic for playing [employer], thumb often feels numb PT-OP-J Posture/Palpation/Skin Start: 02/12/24 08:02 Freq: Status: Active Protocol: Document 02/12/24 09:46 [facility] (Rec: 02/12/24 16:10 [facility] [id number]) Posture Evaluation Position Standing Head/C-Spine Posture Forward Head T-Spine Posture Increased Kyphosis L-Spine Posture Decreased Lordosis Shoulder Posture (L) Rounded,(R) Rounded Scapula Posture (L) Protracted,(R) Protracted Arm Posture (L) Internally Rotated,(R) Internally Rotated Pelvis Posture Posterior Tilted Comments Posture Comments poor gluteal muscle tone Palpation Assessment Location c/s Palpation Findings Soft Tissue Tightness,Muscle Guarding,Tenderness PT-OP-K Range of Motion Start: 02/12/24 08:02 Freq: Status: Active Protocol: Document 02/12/24 09:46 [facility] (Rec: 02/12/24 16:10 [facility] [id number]) Cervical Spine Range of Motion Cervical Spine Active Flexion 52 Extension 40 Rotation Left 35 Rotation Right 30 Lateral Flexion Left 12 Lateral Flexion Right 44 ROM Limitations Soft Tissue Tightness, Contracture,Pain Shoulder Goniometric Range of Motion Shoulder john Shoulder ROM WFL Yes PT-OP-L Special Tests Start: 02/12/24 08:02 Freq: Status: Active Protocol: Document 02/12/24 09:46 [facility] (Rec: 02/12/24 16:10 [facility] [id number]) Special Tests Cervical Spine Special Tests Traction Test Results + Comments decrease symptoms Foraminal Compression Test Results + Comments increased tightness and pain sensation Upper Limb Tension Test Comments perform next session PT-OP-M Strength Start: 02/12/24 08:02 Freq: Status: Active Protocol: Document 02/12/24 09:46 [facility] (Rec: 02/12/24 16:10 [facility] [id number]) Cervical Spine Strength Cervical Spine Manual Muscle Testing Flexion (C1-2) 4 Good Extension 4 Good Rotation Left 4 Good Rotation Right 4 Good Lateral Flexion Left (C3) 4 Good Lateral Flexion Right (C3) 4 Good Shoulder Strength Shoulder Manual Muscle Testing Left Flexion 4 Good Extension 4 Good Abduction (C5) 4 Good Adduction 4 Good External Rotation 4- Good- Internal Rotation 4 Good Horizontal Abduction 4 Good Horizontal Adduction 4 Good Right Flexion 4 Good Extension 4 Good Abduction (C5) 4 Good Adduction 4 Good External Rotation 4- Good- Internal Rotation 4 Good Elbow/Forearm Strength Elbow and Forearm Manual Muscle Testing john Flexion (C6) 4+ Good+ Extension (C7) 4+ Good+ Pronation 4+ Good+ Supination 4+ Good+ Wrist Strength Wrist Manual Muscle Testing john Flexion (C7) 4 Good Extension (C6) 4- Good- PT-OP-Q Treatments Start: 02/12/24 08:02 Freq: Status: Active Protocol: Document 03/04/24 13:02 SP (Rec: 03/04/24 13:47 SP [id number]) Cardio Equipment Upper Body Ergometer (UBE) Duration (Minutes) 6 RPM 80 Seat Position 10 Height 3 Other 2 min fwd, 4 min bckd, cues for neutral c/s. Towel roll vertical at t/s Gym Equipment Cable Column (Body Solid) lat pull Details cues for scapular activation/ depression Resistance 20 (seated) Reps/Time 10x to chest (over hand cutter hand/ shld width) row Details cues for scapular activation, postural alignment Resistance 10 (seated) Reps/Time 10x Therapeutic Exercises Supine Exercises TS rolling Supine Exercise Name reviewed self TS ext/roll Comments good form over foam roller Supine Exercise Name pec stretch, HABD, FF, 1/2 X, chest press plus Side bilateral Resistance AROM warm up then 2# DB Equipment Used foam roller, towel roll under head Reps/Minutes 10 reps each Comments cued not arms passed body to floor serratus punches Supine Exercise Name verbal review then applied over foam roller Side bilateral Prone Exercises I, T Prone Exercise Name I,T Equipment Used over 65 cm tball Reps/Minutes 5 reps each Comments cues for scapular activation Sitting Exercises SNAGS Sitting Exercise Name trialed in PT: Rotation, ext Side bilateral Comments not as helpful as had liked, states use TB at home Standing Exercises Resisted ER Standing Exercise Name added to HEP /c HO Side bilateral Resistance together TB #1 light blue Equipment Used back to wall Reps/Minutes x10 Comments cued chin tuck, CS retraction neutral for him Ys off wall Standing Exercise Name added to HEP /c HO Side bilateral Resistance AROM Equipment Used facing wall Reps/Minutes x10 Comments cued belly toward wall, CS retraction neutral better Other Exercises self STMs Other Exercise Name theracane neck: MWM (head nods /turns) L>R Reps/Minutes 1 min total Comments good response PT-OP-R Modalities Start: 02/12/24 08:02 Freq: Status: Active Protocol: Document 02/26/24 09:44 SAK (Rec: 02/26/24 10:43 SAK [id number]) Electric Stimulation Electric Stimulation Interferential Current (IFC) Intensity 9 Target/Sweep Sweep Patient Position Supine Combined With Heat/Cold Hot Pack Hot Pack/Cold Pack Treatment Hot Pack Location c/s, t/s Patient Position Hooklying Patient Tolerance Good Comments x15', wedge under LEs, oconnell within reach PT-OP-T Assessment and Plan Start: 02/12/24 08:02 Freq: Status: Active Protocol: Document 03/04/24 13:02 SP (Rec: 03/04/24 13:47 SP [id number]) Physical Therapy Assessment Goals Four Impairment weakness Short Term Goal (STG) Patient to be instructed in HEP for purposes of strengthening posterior chain musculature STG Duration 03/28/24 Snf Goal (LTG) Patient will be independent and compliant with HEP and demonstrate improvement in strength to at least 4+/5 LTG Duration 05/12/24 Three Impairment postural dysfunction with forward head, rounded shoulders Short Term Goal (STG) Patient to be instructed in neutral postural alignment and importance followed by postural correction activities and exercises and strategies for improved postural alignment statically and with functional activities STG Duration 03/28/24 Snf Goal (LTG) Patient to be able to demonstrate good postural awareness and ability to self- correct without cues and be independent and compliant with postural correction exercises and activities LTG Duration 05/12/24 Two Impairment Neck disability index score 40 % Snf Goal (LTG) Decrease NDI to no greater than 20% as measure of improved activity tolerance and function LTG Duration 05/12/24 One Impairment neck pain with radicular symptoms Short Term Goal (STG) Decrease pain and radicular symptoms by at least 50% STG Duration 03/28/24 Pattern Changer Goal (LTG) Decrease pain and radicular symptoms by at least 75% with all usual activities LTG Duration 05/12/24 Assessment Summary Assessment Pt good form ther ex overfoam roller, review AROM little more than self pec stretch has always done on his own. Progressed addition of strengthening 2# DB with no adverse affects than tiring. GOod form self TS rolling. He also performs self pelvis on foam roller with LE mobility bicycle with good core stability form safe. Initiated awareness of self STMs for posterior neck use theracane and SNAGS but stated likes his TB ex better. Progressed postural HEP resisted Humeral ER and Ys off wall with improved CS retraction and more upright through TS performance, provided HOs for set up/carryover home. Physical Therapy Plan Frequency and Duration Frequency of Treatment 2x/Week Duration of treatment (weeks) 12 Plan of Care Start Date 02/12/24 Plan of Care End Date 05/12/24 Therapeutic Interventions Therapeutic Interventions Home Exercise Program,Manual Therapy,Patient/Caregiver Education,Self-Care/Home Management,Soft Tissue Mobilization,Taping, Therapeutic Activities, Therapeutic Exercises Modalities Cold Pack/Ice Massage,Electric Stimulation,Hot Packs, Infrared Therapy,Traction- Mechanical,Ultrasound Next Visit Focus/Plan Next Note Type Treatment Note Next Visit Plan Review shoulder ER and Ys off wall HEP, Initiated Ts, Is on ball in PT. POC: progress postural correction and posterior chain strengthening per POC.
--- NOTE | 2024-03-11 13:32 | PT.OTN ---
Current Diagnoses Spondylosis without myelopathy or radiculopathy, cervical region (03/11/24) Radiculopathy, cervical region (03/11/24) Abnormal posture (03/11/24) Weakness (03/11/24) Physical Therapy Treatment Note PT-OP-A Visit Information Start: 02/12/24 08:02 Freq: Status: Active Protocol: Document 03/11/24 09:11 SAK (Rec: 03/11/24 09:46 SAK [id number]) Out-Patient Physical Therapy Visit Information Visit Information Visit Type Treatment Note Visit Note Reports pain minimal when does exercises. 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 Initially diagnosed with lateral epicondylitis, didn't look at neck. recent injection which helped a little. Prior injections in lumbar spine very help, no injections thoracic spine. Pain increases with sitting, bending. Has had PT in the past, has been helpful. Difficult to get motivated to do any regular exercise except golfing and walking. Uses heating pad, ice wrap. Also c /o occasional numbness in hands, varies from thumb only to entire hand. Sleeps on side, pillow under neck and head not shoulders. Has foam roller Prior Treatments and Tests Dexa scan neck MRI: stenosis and arthritis prior chiropractor but not recently Treatment Goals Patient/Caregiver Goals decrease pain and radicular symptoms PT-OP-C Subjective Start: 02/12/24 08:02 Freq: Status: Active Protocol: Document 03/04/24 13:02 SP (Rec: 03/04/24 13:47 SP [id number]) OP-PT Subjective Patient Comments Patient Comments Pt reports performing some HEP over foam roller. PT-OP-H Neuro Start: 02/12/24 08:02 Freq: Status: Active Protocol: Document 02/12/24 09:46 [facility] (Rec: 02/12/24 16:10 [facility] [id number]) Sensation Evaluation Gross Sensation Sensation Description Paresthesia Dermatome Impairments C5,C6 Comments Summary Comments Patient reports having more difficulty holding onto pic for playing guitar, thumb often feels numb PT-OP-J Posture/Palpation/Skin Start: 02/12/24 08:02 Freq: Status: Active Protocol: Document 02/12/24 09:46 [facility] (Rec: 02/12/24 16:10 [facility] [id number]) Posture Evaluation Position Standing Head/C-Spine Posture Forward Head T-Spine Posture Increased Kyphosis L-Spine Posture Decreased Lordosis Shoulder Posture (L) Rounded,(R) Rounded Scapula Posture (L) Protracted,(R) Protracted Arm Posture (L) Internally Rotated,(R) Internally Rotated Pelvis Posture Posterior Tilted Comments Posture Comments poor gluteal muscle tone Palpation Assessment Location c/s Palpation Findings Soft Tissue Tightness,Muscle Guarding,Tenderness PT-OP-K Range of Motion Start: 02/12/24 08:02 Freq: Status: Active Protocol: Document 02/12/24 09:46 [facility] (Rec: 02/12/24 16:10 [facility] [id number]) Cervical Spine Range of Motion Cervical Spine Active Flexion 52 Extension 40 Rotation Left 35 Rotation Right 30 Lateral Flexion Left 12 Lateral Flexion Right 44 ROM Limitations Soft Tissue Tightness, Contracture,Pain Shoulder Goniometric Range of Motion Shoulder john Shoulder ROM WFL Yes PT-OP-L Special Tests Start: 02/12/24 08:02 Freq: Status: Active Protocol: Document 02/12/24 09:46 [facility] (Rec: 02/12/24 16:10 [facility] [id number]) Special Tests Cervical Spine Special Tests Traction Test Results + Comments decrease symptoms Foraminal Compression Test Results + Comments increased tightness and pain sensation Upper Limb Tension Test Comments perform next session PT-OP-M Strength Start: 02/12/24 08:02 Freq: Status: Active Protocol: Document 02/12/24 09:46 [facility] (Rec: 02/12/24 16:10 [facility] [id number]) Cervical Spine Strength Cervical Spine Manual Muscle Testing Flexion (C1-2) 4 Good Extension 4 Good Rotation Left 4 Good Rotation Right 4 Good Lateral Flexion Left (C3) 4 Good Lateral Flexion Right (C3) 4 Good Shoulder Strength Shoulder Manual Muscle Testing Left Flexion 4 Good Extension 4 Good Abduction (C5) 4 Good Adduction 4 Good External Rotation 4- Good- Internal Rotation 4 Good Horizontal Abduction 4 Good Horizontal Adduction 4 Good Right Flexion 4 Good Extension 4 Good Abduction (C5) 4 Good Adduction 4 Good External Rotation 4- Good- Internal Rotation 4 Good Elbow/Forearm Strength Elbow and Forearm Manual Muscle Testing john Flexion (C6) 4+ Good+ Extension (C7) 4+ Good+ Pronation 4+ Good+ Supination 4+ Good+ Wrist Strength Wrist Manual Muscle Testing john Flexion (C7) 4 Good Extension (C6) 4- Good- PT-OP-Q Treatments Start: 02/12/24 08:02 Freq: Status: Active Protocol: Document 03/11/24 09:11 [facility] (Rec: 03/11/24 09:46 [facility] [id number]) Cardio Equipment Upper Body Ergometer (UBE) Duration (Minutes) 6 RPM 80 Seat Position 10 Height 3 Other 2 min fwd, 4 min bckd, cues for neutral c/s. Towel roll vertical at t/s Gym Equipment Cable Column (Body Solid) lat pull Details cues for scapular activation/ depression Resistance 20 (seated) Reps/Time 10x to chest (over hand director of career services/ shld width) row Details cues for scapular activation, postural alignment Resistance 10 (seated) Reps/Time 10x Therapeutic Exercises Supine Exercises TS rolling Supine Exercise Name reviewed self TS ext/roll, l/s ext Comments good form over foam roller Supine Exercise Name pec stretch, HABD with L2 TB, FF, 1/2 X L2 TB, chest press plus Side bilateral Resistance AROM warm up then 2# DB Equipment Used foam roller, towel roll under head Reps/Minutes 10 reps each Comments cued not arms passed body to floor serratus punches Side bilateral Equipment Used foam roller Prone Exercises I, T Prone Exercise Name I,T Resistance 1# Equipment Used over 65 cm tball Reps/Minutes 10x reps each Comments cues for scapular activation Standing Exercises Resisted ER Standing Exercise Name added to HEP /c HO Side bilateral Resistance together TB #1 light blue Equipment Used back to wall Reps/Minutes x10 Comments cued chin tuck, CS retraction neutral for him Ys off wall Standing Exercise Name added to HEP /c HO Side bilateral Resistance AROM Equipment Used facing wall Reps/Minutes x10 Comments cued belly toward wall, CS retraction neutral better wall posture Standing Exercise Name chin tuck Side bilateral Equipment Used towel Comments improved tolerance Manual Therapy Treatment Soft Tissue Mobilization CS Body Location Cervical Spine Mobilization Type Myofascial Release,Rolling, Strumming,Sustained Pressure Intensity/Depth Moderate Body Position Supine Comments x2 pillows for cervical alignment Manual Traction Cervical Traction Details Cervical Spine Body Position Supine Reps/Duration 3x15 Comments Gentle, monitored for pt tolerance, no increase in symptoms PT-OP-R Modalities Start: 02/12/24 08:02 Freq: Status: Active Protocol: Document 02/26/24 09:44 [facility] (Rec: 02/26/24 10:43 [facility] [id number]) Electric Stimulation Electric Stimulation Interferential Current (IFC) Intensity 9 Target/Sweep Sweep Patient Position Supine Combined With Heat/Cold Hot Pack Hot Pack/Cold Pack Treatment Hot Pack Location c/s, t/s Patient Position Hooklying Patient Tolerance Good Comments x15', wedge under LEs, oconnell within reach PT-OP-T Assessment and Plan Start: 02/12/24 08:02 Freq: Status: Active Protocol: Document 03/11/24 09:11 [facility] (Rec: 03/11/24 09:46 [facility] [id number]) Physical Therapy Assessment Goals Four Impairment weakness Short Term Goal (STG) Patient to be instructed in HEP for purposes of strengthening posterior chain musculature STG Duration 03/28/24 Counter Former Goal (LTG) Patient will be independent and compliant with HEP and demonstrate improvement in strength to at least 4+/5 LTG Duration 05/12/24 Three Impairment postural dysfunction with forward head, rounded shoulders Short Term Goal (STG) Patient to be instructed in neutral postural alignment and importance followed by postural correction activities and exercises and strategies for improved postural alignment statically and with functional activities STG Duration 03/28/24 Correction Goal (LTG) Patient to be able to demonstrate good postural awareness and ability to self- correct without cues and be independent and compliant with postural correction exercises and activities LTG Duration 05/12/24 Two Impairment Neck disability index score 40 % Correction Goal (LTG) Decrease NDI to no greater than 20% as measure of improved activity tolerance and function LTG Duration 05/12/24 One Impairment neck pain with radicular symptoms Short Term Goal (STG) Decrease pain and radicular symptoms by at least 50% STG Duration 03/28/24 Counter Former Goal (LTG) Decrease pain and radicular symptoms by at least 75% with all usual activities LTG Duration 05/12/24 Assessment Summary Assessment Patient reporting feels better when does exercises. Cued in waiting room for seated posture while reading. Working on guitar posture, started using strap again and that helps. Good compliance to HEP. Physical Therapy Plan Frequency and Duration Frequency of Treatment 2x/Week Duration of treatment (weeks) 12 Plan of Care Start Date 02/12/24 Plan of Care End Date 05/12/24 Therapeutic Interventions Therapeutic Interventions Home Exercise Program,Manual Therapy,Patient/Caregiver Education,Self-Care/Home Management,Soft Tissue Mobilization,Taping, Therapeutic Activities, Therapeutic Exercises Modalities Cold Pack/Ice Massage,Electric Stimulation,Hot Packs, Infrared Therapy,Traction- Mechanical,Ultrasound Next Visit Focus/Plan Next Note Type Treatment Note Next Visit Plan Continue postural correction and posterior chain strengthening, manual. Consider adding c/s isometrics standing with ball.
--- NOTE | 2024-03-16 10:42 | PT.OTN ---
Current Diagnoses Spondylosis without myelopathy or radiculopathy, cervical region (03/16/24) Radiculopathy, cervical region (03/16/24) Abnormal posture (03/16/24) Weakness (03/16/24) Physical Therapy Treatment Note PT-OP-A Visit Information Start: 02/12/24 08:02 Freq: Status: Active Protocol: Document 03/16/24 09:43 SAK (Rec: 03/16/24 10:42 [facility] [id number]) Out-Patient Physical Therapy Visit Information Visit Information Visit Type Treatment Note Visit Start Time 09:43 Visit Number 9 Evaluation Information Evaluation Date 02/12/24 Precautions Precautions osteoporosis left hip, osteopenia right hip osteoporosis neck PT-OP-B Current Condition Start: 02/12/24 08:02 Freq: Status: Active Protocol: Document 02/17/24 08:11 SAK (Rec: 02/17/24 09:01 [facility]AK [id number]) Current Condition History of Current Condition Onset Date chronic since 1989 Current Complaints neck pain, arm and hand numbness, thoracic and lumbar pain History of Current Condition chronic neck pain with radicular symptoms since [place]. Initially diagnosed with lateral epicondylitis, didn't look at neck. recent injection which helped a little. Prior injections in lumbar spine very help, no injections thoracic spine. Pain increases with sitting, bending. Has had PT in the past, has been helpful. Difficult to get motivated to do any regular exercise except golfing and walking. Uses heating pad, ice wrap. Also c /o occasional numbness in hands, varies from thumb only to entire hand. Sleeps on side, pillow under neck and head not shoulders. Has foam roller Prior Treatments and Tests Dexa scan neck MRI: stenosis and arthritis prior chiropractor but not recently Treatment Goals Patient/Caregiver Goals decrease pain and radicular symptoms PT-OP-C Subjective Start: 02/12/24 08:02 Freq: Status: Active Protocol: Document 03/16/24 09:43 SAK (Rec: 03/16/24 10:42 [facility] [id number]) OP-PT Subjective Patient Comments Patient Comments Compliant to HEP. PT-OP-H Neuro Start: 02/12/24 08:02 Freq: Status: Active Protocol: Document 02/12/24 09:46 SAK (Rec: 02/12/24 16:10 [facility] [id number]) Sensation Evaluation Gross Sensation Sensation Description Paresthesia Dermatome Impairments C5,C6 Comments Summary Comments Patient reports having more difficulty holding onto pic for playing guitar, thumb often feels numb PT-OP-J Posture/Palpation/Skin Start: 02/12/24 08:02 Freq: Status: Active Protocol: Document 02/12/24 09:46 [facility] (Rec: 02/12/24 16:10 [facility] [id number]) Posture Evaluation Position Standing Head/C-Spine Posture Forward Head T-Spine Posture Increased Kyphosis L-Spine Posture Decreased Lordosis Shoulder Posture (L) Rounded,(R) Rounded Scapula Posture (L) Protracted,(R) Protracted Arm Posture (L) Internally Rotated,(R) Internally Rotated Pelvis Posture Posterior Tilted Comments Posture Comments poor gluteal muscle tone Palpation Assessment Location c/s Palpation Findings Soft Tissue Tightness,Muscle Guarding,Tenderness PT-OP-K Range of Motion Start: 02/12/24 08:02 Freq: Status: Active Protocol: Document 02/12/24 09:46 [facility] (Rec: 02/12/24 16:10 [facility] [id number]) Cervical Spine Range of Motion Cervical Spine Active Flexion 52 Extension 40 Rotation Left 35 Rotation Right 30 Lateral Flexion Left 12 Lateral Flexion Right 44 ROM Limitations Soft Tissue Tightness, Contracture,Pain Shoulder Goniometric Range of Motion Shoulder john Shoulder ROM WFL Yes PT-OP-L Special Tests Start: 02/12/24 08:02 Freq: Status: Active Protocol: Document 02/12/24 09:46 [facility] (Rec: 02/12/24 16:10 [facility] [id number]) Special Tests Cervical Spine Special Tests Traction Test Results + Comments decrease symptoms Foraminal Compression Test Results + Comments increased tightness and pain sensation Upper Limb Tension Test Comments perform next session PT-OP-M Strength Start: 02/12/24 08:02 Freq: Status: Active Protocol: Document 02/12/24 09:46 [facility] (Rec: 02/12/24 16:10 [facility] [id number]) Cervical Spine Strength Cervical Spine Manual Muscle Testing Flexion (C1-2) 4 Good Extension 4 Good Rotation Left 4 Good Rotation Right 4 Good Lateral Flexion Left (C3) 4 Good Lateral Flexion Right (C3) 4 Good Shoulder Strength Shoulder Manual Muscle Testing Left Flexion 4 Good Extension 4 Good Abduction (C5) 4 Good Adduction 4 Good External Rotation 4- Good- Internal Rotation 4 Good Horizontal Abduction 4 Good Horizontal Adduction 4 Good Right Flexion 4 Good Extension 4 Good Abduction (C5) 4 Good Adduction 4 Good External Rotation 4- Good- Internal Rotation 4 Good Elbow/Forearm Strength Elbow and Forearm Manual Muscle Testing john Flexion (C6) 4+ Good+ Extension (C7) 4+ Good+ Pronation 4+ Good+ Supination 4+ Good+ Wrist Strength Wrist Manual Muscle Testing john Flexion (C7) 4 Good Extension (C6) 4- Good- PT-OP-Q Treatments Start: 02/12/24 08:02 Freq: Status: Active Protocol: Document 03/16/24 09:43 SAK (Rec: 03/16/24 10:42 [facility]AK [id number]) Cardio Equipment Upper Body Ergometer (UBE) Duration (Minutes) 6 RPM 80 Seat Position 10 Height 3 Other 2 min fwd, 4 min bckd, cues for neutral c/s. Towel roll vertical at t/s Therapeutic Exercises Standing Exercises walk with beanbag Equipment Used beanbag on head Reps/Minutes 30 ft x 2 sh 90/90 ER Equipment Used wall Reps/Minutes 10x5s venus c/s Standing Exercise Name rot/ext Reps/Minutes 5x5s chin tuck Resistance orange ball Reps/Minutes 5x5s wall posture Standing Exercise Name chin tuck Side bilateral Equipment Used towel behind head Manual Therapy Treatment Soft Tissue Mobilization self SOR Mobilization Type Sustained Pressure Body Position Hooklying Comments 2 tennis balls issued HO CS Body Location Cervical Spine Mobilization Type Myofascial Release,Rolling, Strumming,Sustained Pressure Intensity/Depth Moderate Body Position Supine Comments x2 pillows for cervical alignment Manual Traction Cervical Traction Details Cervical Spine Body Position Supine Reps/Duration 3x15 Comments Gentle, monitored for pt tolerance, no increase in symptoms Other Other Manual Treatments c/s rot eye gaze contract/ relax Self-Care/Home Management Treatment Education Other Education use of tennis balls for SOR review eye gaze technique use of occipital float for c/s rotation PT-OP-R Modalities Start: 02/12/24 08:02 Freq: Status: Active Protocol: Document 02/26/24 09:44 SAK (Rec: 02/26/24 10:43 [facility] [id number]) Electric Stimulation Electric Stimulation Interferential Current (IFC) Intensity 9 Target/Sweep Sweep Patient Position Supine Combined With Heat/Cold Hot Pack Hot Pack/Cold Pack Treatment Hot Pack Location c/s, t/s Patient Position Hooklying Patient Tolerance Good Comments x15', wedge under LEs, oconnell within reach PT-OP-T Assessment and Plan Start: 02/12/24 08:02 Freq: Status: Active Protocol: Document 03/16/24 09:43 [facility] (Rec: 03/16/24 10:42 [facility] [id number]) Physical Therapy Assessment Impairments Impairments Posture,ROM,Soft Tissue Mobility,Strength Other Concerns Barriers to Rehabilitation patient is a smoker Goals Four Impairment weakness Short Term Goal (STG) Patient to be instructed in HEP for purposes of strengthening posterior chain musculature STG Duration 03/28/24 [employer] Goal (LTG) Patient will be independent and compliant with HEP and demonstrate improvement in strength to at least 4+/5 LTG Duration 05/12/24 Three Impairment postural dysfunction with forward head, rounded shoulders Short Term Goal (STG) Patient to be instructed in neutral postural alignment and importance followed by postural correction activities and exercises and strategies for improved postural alignment statically and with functional activities STG Duration 03/28/24 Long-Term Goal (LTG) Patient to be able to demonstrate good postural awareness and ability to self- correct without cues and be independent and compliant with postural correction exercises and activities LTG Duration 05/12/24 Two Impairment Neck disability index score 40 % [employer] [facility] Goal (LTG) Decrease NDI to no greater than 20% as measure of improved activity tolerance and function LTG Duration 05/12/24 One Impairment neck pain with radicular symptoms Short Term Goal (STG) Decrease pain and radicular symptoms by at least 50% STG Duration 03/28/24 [employer] Goal (LTG) Decrease pain and radicular symptoms by at least 75% with all usual activities LTG Duration 05/12/24 Assessment Summary Assessment Added standing isometric cervical ex neutral and with rotation with good tolerance; fatigue, not pain. Instructed in use of tennis balls for SOR with patient reporting good response. Physical Therapy Plan Frequency and Duration Frequency of Treatment 2x/Week Duration of treatment (weeks) 12 Plan of Care Start Date 02/12/24 Plan of Care End Date 05/12/24 Therapeutic Interventions Therapeutic Interventions Home Exercise Program,Manual Therapy,Patient/Caregiver Education,Self-Care/Home Management,Soft Tissue Mobilization,Taping, Therapeutic Activities, Therapeutic Exercises Modalities Cold Pack/Ice Massage,Electric Stimulation,Hot Packs, Infrared Therapy,Traction- Mechanical,Ultrasound Next Visit Focus/Plan Next Note Type Progress Note Next Visit Plan Continue postural correction ex, posterior chain strengthening, manual. Issue written HO for c/s venus and eye gaze ex
--- NOTE | 2024-03-18 13:15 | PT.OTN ---
Current Diagnoses Spondylosis without myelopathy or radiculopathy, cervical region (03/18/24) Radiculopathy, cervical region (03/18/24) Abnormal posture (03/18/24) Weakness (03/18/24) Physical Therapy Treatment Note PT-OP-A Visit Information Start: 02/12/24 08:02 Freq: Status: Active Protocol: Document 03/18/24 08:09 [facility] (Rec: 03/18/24 09:03 [facility] [id number]) Out-Patient Physical Therapy Visit Information Visit Information Visit Type Treatment Note Visit Start Time 08:15 Visit Stop Time 09:10 Visit Number 10 Evaluation Information Evaluation Date 02/12/24 Precautions Precautions osteoporosis left hip, osteopenia right hip osteoporosis neck PT-OP-B Current Condition Start: 02/12/24 08:02 Freq: Status: Active Protocol: Document 02/17/24 08:11 SAK (Rec: 02/17/24 09:01 [facility] [id number]) Current Condition History of Current Condition Onset Date chronic since 1989 Current Complaints neck pain, arm and hand numbness, thoracic and lumbar pain History of Current Condition chronic neck pain with radicular symptoms since [place] the [place]. Initially diagnosed with lateral epicondylitis, didn't look at neck. recent injection which helped a little. Prior injections in lumbar spine very help, no injections thoracic spine. Pain increases with sitting, bending. Has had PT in the past, has been helpful. Difficult to get motivated to do any regular exercise except golfing and walking. Uses heating pad, ice wrap. Also c /o occasional numbness in hands, varies from thumb only to entire hand. Sleeps on side, pillow under neck and head not shoulders. Has foam roller Prior Treatments and Tests Dexa scan neck MRI: stenosis and arthritis prior chiropractor but not recently Treatment Goals Patient/Caregiver Goals decrease pain and radicular symptoms PT-OP-C Subjective Start: 02/12/24 08:02 Freq: Status: Active Protocol: Document 03/18/24 08:09 [facility] (Rec: 03/18/24 09:03 [facility] [id number]) OP-PT Subjective Patient Comments Patient Comments Hasn't gotten tennis balls together for self SOR yet. Feels improving strength, noting improved posture. Patient Reported Progress Improving PT-OP-H Neuro Start: 02/12/24 08:02 Freq: Status: Active Protocol: Document 02/12/24 09:46 [facility] (Rec: 02/12/24 16:10 [facility] [id number]) Sensation Evaluation Gross Sensation Sensation Description Paresthesia Dermatome Impairments C5,C6 Comments Summary Comments Patient reports having more difficulty holding onto pic for playing guitar, thumb often feels numb PT-OP-J Posture/Palpation/Skin Start: 02/12/24 08:02 Freq: Status: Active Protocol: Document 02/12/24 09:46 [facility] (Rec: 02/12/24 16:10 [facility] [id number]) Posture Evaluation Position Standing Head/C-Spine Posture Forward Head T-Spine Posture Increased Kyphosis L-Spine Posture Decreased Lordosis Shoulder Posture (L) Rounded,(R) Rounded Scapula Posture (L) Protracted,(R) Protracted Arm Posture (L) Internally Rotated,(R) Internally Rotated Pelvis Posture Posterior Tilted Comments Posture Comments poor gluteal muscle tone Palpation Assessment Location c/s Palpation Findings Soft Tissue Tightness,Muscle Guarding,Tenderness PT-OP-K Range of Motion Start: 02/12/24 08:02 Freq: Status: Active Protocol: Document 02/12/24 09:46 [facility] (Rec: 02/12/24 16:10 [facility] [id number]) Cervical Spine Range of Motion Cervical Spine Active Flexion 52 Extension 40 Rotation Left 35 Rotation Right 30 Lateral Flexion Left 12 Lateral Flexion Right 44 ROM Limitations Soft Tissue Tightness, Contracture,Pain Shoulder Goniometric Range of Motion Shoulder john Shoulder ROM WFL Yes PT-OP-L Special Tests Start: 02/12/24 08:02 Freq: Status: Active Protocol: Document 02/12/24 09:46 [facility] (Rec: 02/12/24 16:10 [facility] [id number]) Special Tests Cervical Spine Special Tests Traction Test Results + Comments decrease symptoms Foraminal Compression Test Results + Comments increased tightness and pain sensation Upper Limb Tension Test Comments perform next session PT-OP-M Strength Start: 02/12/24 08:02 Freq: Status: Active Protocol: Document 02/12/24 09:46 [facility] (Rec: 02/12/24 16:10 [facility] [id number]) Cervical Spine Strength Cervical Spine Manual Muscle Testing Flexion (C1-2) 4 Good Extension 4 Good Rotation Left 4 Good Rotation Right 4 Good Lateral Flexion Left (C3) 4 Good Lateral Flexion Right (C3) 4 Good Shoulder Strength Shoulder Manual Muscle Testing Left Flexion 4 Good Extension 4 Good Abduction (C5) 4 Good Adduction 4 Good External Rotation 4- Good- Internal Rotation 4 Good Horizontal Abduction 4 Good Horizontal Adduction 4 Good Right Flexion 4 Good Extension 4 Good Abduction (C5) 4 Good Adduction 4 Good External Rotation 4- Good- Internal Rotation 4 Good Elbow/Forearm Strength Elbow and Forearm Manual Muscle Testing john Flexion (C6) 4+ Good+ Extension (C7) 4+ Good+ Pronation 4+ Good+ Supination 4+ Good+ Wrist Strength Wrist Manual Muscle Testing jhon Flexion (C7) 4 Good Extension (C6) 4- Good- PT-OP-Q Treatments Start: 02/12/24 08:02 Freq: Status: Active Protocol: Document 03/18/24 08:09 [facility] (Rec: 03/18/24 09:03 [facility] [id number]) Cardio Equipment Upper Body Ergometer (UBE) Duration (Minutes) 6 RPM 80 Seat Position 10 Height 3 Other 2 min fwd, 4 min bckd, cues for neutral c/s. Towel roll vertical at t/s Therapeutic Exercises Prone Exercises I, T Prone Exercise Name I,T Resistance 1# Equipment Used over 65 cm tball Reps/Minutes 10x reps each Comments cues for scapular activation Standing Exercises walk with beanbag Equipment Used beanbag on head Reps/Minutes 30 ft x 4 sh 90/90 ER Equipment Used wall Reps/Minutes 10x5s venus c/s Standing Exercise Name rot/ext Reps/Minutes 5x5s chin tuck Resistance orange ball Reps/Minutes 5x5s Resisted ER Standing Exercise Name added to HEP /c HO Side bilateral Resistance together TB #2 Equipment Used back to wall Reps/Minutes x10 Comments cued chin tuck, CS retraction neutral for him Ys off wall Side bilateral Resistance AROM Equipment Used facing wall Reps/Minutes x10 Comments cued belly toward wall, CS retraction neutral better wall angels Standing Exercise Name wall angels Equipment Used wall Reps/Minutes 5x wall posture Standing Exercise Name chin tuck Side bilateral Equipment Used towel behind head Other Exercises quadriped chin tuck and c/s rot Other Exercise Name next session Manual Therapy Treatment Soft Tissue Mobilization self SOR Body Location verbal reminder Periscapular Body Location Periscapular, Traps, Rhomboid Mobilization Type Myofascial Release Intensity/Depth Moderate Body Position Supine/sidelying Comments Focus on upper thoracic CS Body Location Cervical Spine Mobilization Type Myofascial Release,Rolling, Strumming,Sustained Pressure Intensity/Depth Moderate Body Position Supine Comments x2 pillows for cervical alignment Manual Traction Cervical Traction Details Cervical Spine Body Position Supine Reps/Duration 3x15 Comments Gentle, monitored for pt tolerance, no increase in symptoms Other Other Manual Treatments c/s rot eye gaze contract/ relax; patient return demo today for HEP Self-Care/Home Management Treatment Education Other Education use of tennis balls for SOR review eye gaze technique use of occipital float for c/s rotation PT-OP-R Modalities Start: 02/12/24 08:02 Freq: Status: Active Protocol: Document 03/18/24 08:09 [facility] (Rec: 03/18/24 09:03 [facility] [id number]) Hot Pack/Cold Pack Treatment Hot Pack Location c/s, t/s Patient Position Hooklying Patient Tolerance Good Comments x15', wedge under LEs, oconnell within reach PT-OP-T Assessment and Plan Start: 02/12/24 08:02 Freq: Status: Active Protocol: Document 03/18/24 08:09 [facility] (Rec: 03/18/24 09:03 [facility] [id number]) Physical Therapy Assessment Impairments Impairments Posture,ROM,Soft Tissue Mobility,Strength Other Concerns Barriers to Rehabilitation patient is a smoker Goals Four Impairment weakness Short Term Goal (STG) Patient to be instructed in HEP for purposes of strengthening posterior chain musculature 03/18/24: GOAL MET STG Duration GOAL MET [employer] Goal (LTG) Patient will be independent and compliant with HEP and demonstrate improvement in strength to at least 4+/5 LTG Duration 05/12/24 Three Impairment postural dysfunction with forward head, rounded shoulders Short Term Goal (STG) Patient to be instructed in neutral postural alignment and importance followed by postural correction activities and exercises and strategies for improved postural alignment statically and with functional activities 03/18/24: GOAL MET STG Duration GOAL MET [facility] Goal (LTG) Patient to be able to demonstrate good postural awareness and ability to self- correct without cues and be independent and compliant with postural correction exercises and activities LTG Duration 05/12/24 Two Impairment Neck disability index score 40 % [facility] Goal (LTG) Decrease NDI to no greater than 20% as measure of improved activity tolerance and function 03/18/24: decreased to 35% LTG Duration 05/12/24 One Impairment neck pain with radicular symptoms Short Term Goal (STG) Decrease pain and radicular symptoms by at least 50% 03/18/24: min decrease in highest level of pain but less frequent, reports exercises help, partially met STG Duration 04/02/24 [employer] [facility] Goal (LTG) Decrease pain and radicular symptoms by at least 75% with all usual activities LTG Duration 05/12/24 Progress Towards Goals Progress Towards Goals Progressing Toward Goals Assessment Summary Assessment Good goal progress. Patient compliant to HEP, improving attention to posture though occasional reminders required. Good compliance to HEP. Physical Therapy Plan Frequency and Duration Frequency of Treatment 2x/Week Duration of treatment (weeks) 12 Plan of Care Start Date 02/12/24 Plan of Care End Date 05/12/24 Therapeutic Interventions Therapeutic Interventions Home Exercise Program,Manual Therapy,Patient/Caregiver Education,Self-Care/Home Management,Soft Tissue Mobilization,Taping, Therapeutic Activities, Therapeutic Exercises Modalities Cold Pack/Ice Massage,Electric Stimulation,Hot Packs, Infrared Therapy,Traction- Mechanical,Ultrasound Next Visit Focus/Plan Next Note Type Treatment Note Next Visit Plan Continue postural correction ex, posterior chain strengthening, manual. Issue written HO for c/s venus and eye gaze ex
--- NOTE | 2024-03-23 12:24 | PT.OTN ---
Current Diagnoses Spondylosis without myelopathy or radiculopathy, cervical region (03/23/24) Radiculopathy, cervical region (03/23/24) Abnormal posture (03/23/24) Weakness (03/23/24) Physical Therapy Treatment Note PT-OP-A Visit Information Start: 02/12/24 08:02 Freq: Status: Active Protocol: Document 03/23/24 11:42 SAK (Rec: 03/23/24 12:24 [facility] [id number]) Out-Patient Physical Therapy Visit Information Visit Information Visit Type Treatment Note Visit Start Time 11:35 Visit Stop Time 12:28 Visit Number 11 Evaluation Information Evaluation Date 02/12/24 Precautions Precautions osteoporosis left hip, osteopenia right hip osteoporosis neck PT-OP-B Current Condition Start: 02/12/24 08:02 Freq: Status: Active Protocol: Document 02/17/24 08:11 SAK (Rec: 02/17/24 09:01 SAK [id number]) Current Condition History of Current Condition Onset Date chronic since 1989 Current Complaints neck pain, arm and hand numbness, thoracic and lumbar pain History of Current Condition chronic neck pain with radicular symptoms since fishing in the [place]. Initially diagnosed with lateral epicondylitis, didn't look at neck. recent injection which helped a little. Prior injections in lumbar spine very help, no injections thoracic spine. Pain increases with sitting, bending. Has had PT in the past, has been helpful. Difficult to get motivated to do any regular exercise except golfing and walking. Uses heating pad, ice wrap. Also c /o occasional numbness in hands, varies from thumb only to entire hand. Sleeps on side, pillow under neck and head not shoulders. Has foam roller Prior Treatments and Tests Dexa scan neck MRI: stenosis and arthritis prior chiropractor but not recently Treatment Goals Patient/Caregiver Goals decrease pain and radicular symptoms PT-OP-C Subjective Start: 02/12/24 08:02 Freq: Status: Active Protocol: Document 03/23/24 11:42 SAK (Rec: 03/23/24 12:24 [facility] [id number]) OP-PT Subjective Patient Comments Patient Comments Has been doing prone ball exercise PT-OP-H Neuro Start: 02/12/24 08:02 Freq: Status: Active Protocol: Document 02/12/24 09:46 SAK (Rec: 02/12/24 16:10 [facility] [id number]) Sensation Evaluation Gross Sensation Sensation Description Paresthesia Dermatome Impairments C5,C6 Comments Summary Comments Patient reports having more difficulty holding onto pic for playing guitar, thumb often feels numb PT-OP-J Posture/Palpation/Skin Start: 02/12/24 08:02 Freq: Status: Active Protocol: Document 02/12/24 09:46 [facility] (Rec: 02/12/24 16:10 [facility] [id number]) Posture Evaluation Position Standing Head/C-Spine Posture Forward Head T-Spine Posture Increased Kyphosis L-Spine Posture Decreased Lordosis Shoulder Posture (L) Rounded,(R) Rounded Scapula Posture (L) Protracted,(R) Protracted Arm Posture (L) Internally Rotated,(R) Internally Rotated Pelvis Posture Posterior Tilted Comments Posture Comments poor gluteal muscle tone Palpation Assessment Location c/s Palpation Findings Soft Tissue Tightness,Muscle Guarding,Tenderness PT-OP-K Range of Motion Start: 02/12/24 08:02 Freq: Status: Active Protocol: Document 02/12/24 09:46 [facility] (Rec: 02/12/24 16:10 [facility] [id number]) Cervical Spine Range of Motion Cervical Spine Active Flexion 52 Extension 40 Rotation Left 35 Rotation Right 30 Lateral Flexion Left 12 Lateral Flexion Right 44 ROM Limitations Soft Tissue Tightness, Contracture,Pain Shoulder Goniometric Range of Motion Shoulder john Shoulder ROM WFL Yes PT-OP-L Special Tests Start: 02/12/24 08:02 Freq: Status: Active Protocol: Document 02/12/24 09:46 [facility] (Rec: 02/12/24 16:10 [facility] [id number]) Special Tests Cervical Spine Special Tests Traction Test Results + Comments decrease symptoms Foraminal Compression Test Results + Comments increased tightness and pain sensation Upper Limb Tension Test Comments perform next session PT-OP-M Strength Start: 02/12/24 08:02 Freq: Status: Active Protocol: Document 02/12/24 09:46 [facility] (Rec: 02/12/24 16:10 [facility] [id number]) Cervical Spine Strength Cervical Spine Manual Muscle Testing Flexion (C1-2) 4 Good Extension 4 Good Rotation Left 4 Good Rotation Right 4 Good Lateral Flexion Left (C3) 4 Good Lateral Flexion Right (C3) 4 Good Shoulder Strength Shoulder Manual Muscle Testing Left Flexion 4 Good Extension 4 Good Abduction (C5) 4 Good Adduction 4 Good External Rotation 4- Good- Internal Rotation 4 Good Horizontal Abduction 4 Good Horizontal Adduction 4 Good Right Flexion 4 Good Extension 4 Good Abduction (C5) 4 Good Adduction 4 Good External Rotation 4- Good- Internal Rotation 4 Good Elbow/Forearm Strength Elbow and Forearm Manual Muscle Testing john Flexion (C6) 4+ Good+ Extension (C7) 4+ Good+ Pronation 4+ Good+ Supination 4+ Good+ Wrist Strength Wrist Manual Muscle Testing john Flexion (C7) 4 Good Extension (C6) 4- Good- PT-OP-Q Treatments Start: 02/12/24 08:02 Freq: Status: Active Protocol: Document 03/23/24 11:42 [facility] (Rec: 03/23/24 12:24 [facility] [id number]) Cardio Equipment Upper Body Ergometer (UBE) Duration (Minutes) 7 RPM 80 Seat Position 10 Height 3 Other 2 min fwd, 4 min bckd, cues for neutral c/s. 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/ shld width), 10x scap only row Details cues for scapular activation, postural alignment Resistance 10 (seated) Reps/Time 10x2, 10x scap only Therapeutic Exercises Prone Exercises I, T Prone Exercise Name HEP Standing Exercises walk with beanbag Equipment Used beanbag on head Reps/Minutes 30 ft x 4 sh 90/90 ER Equipment Used wall Reps/Minutes 10x5s overhead press Standing Exercise Name HEP review doorway stretch Standing Exercise Name HEP review wall angels Standing Exercise Name wall angels Equipment Used wall Reps/Minutes 5x c/s AROM Reps/Minutes 5x ea Comments submax, cue neutral wall posture Standing Exercise Name chin tuck Side bilateral Comments also with angels x 10 Other Exercises bird dog Reps/Minutes 5x quadriped chin tuck and c/s rot Reps/Minutes 5x Manual Therapy Treatment Soft Tissue Mobilization self SOR Mobilization Type Sustained Pressure Body Position Hooklying CS Body Location Cervical Spine Mobilization Type Myofascial Release,Rolling, Strumming,Sustained Pressure Intensity/Depth Moderate Body Position Supine Comments x2 pillows for cervical alignment Manual Traction Cervical Traction Details Cervical Spine Body Position Supine Reps/Duration 3x15 Comments Gentle, monitored for pt tolerance, no increase in symptoms PT-OP-R Modalities Start: 02/12/24 08:02 Freq: Status: Active Protocol: Document 03/23/24 11:42 [facility] (Rec: 03/23/24 12:24 [facility] [id number]) Hot Pack/Cold Pack Treatment Hot Pack Location c/s, t/s Patient Position Hooklying Patient Tolerance Good Comments x15', wedge under LEs, oconnell within reach PT-OP-T Assessment and Plan Start: 02/12/24 08:02 Freq: Status: Active Protocol: Document 03/23/24 11:42 [facility] (Rec: 03/23/24 12:24 [facility] [id number]) Physical Therapy Assessment Impairments Impairments Posture,ROM,Soft Tissue Mobility,Strength Other Concerns Barriers to Rehabilitation patient is a smoker Goals Four Impairment weakness Short Term Goal (STG) Patient to be instructed in HEP for purposes of strengthening posterior chain musculature 03/18/24: GOAL MET STG Duration GOAL MET Integrity Specialist Goal (LTG) Patient will be independent and compliant with HEP and demonstrate improvement in strength to at least 4+/5 LTG Duration 05/12/24 Three Impairment postural dysfunction with forward head, rounded shoulders Short Term Goal (STG) Patient to be instructed in neutral postural alignment and importance followed by postural correction activities and exercises and strategies for improved postural alignment statically and with functional activities 03/18/24: GOAL MET STG Duration GOAL MET Integrity Specialist Goal (LTG) Patient to be able to demonstrate good postural awareness and ability to self- correct without cues and be independent and compliant with postural correction exercises and activities LTG Duration 05/12/24 Two Impairment Neck disability index score 40 % Integrity Specialist Goal (LTG) Decrease NDI to no greater than 20% as measure of improved activity tolerance and function 03/18/24: decreased to 35% LTG Duration 05/12/24 One Impairment neck pain with radicular symptoms Short Term Goal (STG) Decrease pain and radicular symptoms by at least 50% 03/18/24: min decrease in highest level of pain but less frequent, reports exercises help, partially met STG Duration 04/02/24 Residential Goal (LTG) Decrease pain and radicular symptoms by at least 75% with all usual activities LTG Duration 05/12/24 Progress Towards Goals Progress Towards Goals Progressing Toward Goals Assessment Summary Assessment Patient compliant to most HEP admitted to low compliance wall posture due to difficulty ; further practice today with cues for alignment and core activation, good response. Decreased pain with SOR and other manual techniques. Physical Therapy Plan Frequency and Duration Frequency of Treatment 2x/Week Duration of treatment (weeks) 12 Plan of Care Start Date 02/12/24 Plan of Care End Date 05/12/24 Therapeutic Interventions Therapeutic Interventions Home Exercise Program,Manual Therapy,Patient/Caregiver Education,Self-Care/Home Management,Soft Tissue Mobilization,Taping, Therapeutic Activities, Therapeutic Exercises Modalities Cold Pack/Ice Massage,Electric Stimulation,Hot Packs, Infrared Therapy,Traction- Mechanical,Ultrasound Next Visit Focus/Plan Next Note Type Treatment Note Next Visit Plan Continue postural correction ex, posterior chain strengthening, manual. Issue written HO for c/s venus and eye gaze ex
--- NOTE | 2024-03-26 12:14 | PT.OTN ---
Current Diagnoses Spondylosis without myelopathy or radiculopathy, cervical region (03/26/24) Radiculopathy, cervical region (03/26/24) Abnormal posture (03/26/24) Weakness (03/26/24) Physical Therapy Treatment Note PT-OP-A Visit Information Start: 02/12/24 08:02 Freq: Status: Active Protocol: Document 03/26/24 11:34 SP (Rec: 03/26/24 12:22 SP [id number]) Out-Patient Physical Therapy Visit Information Visit Information Visit Type Treatment Note Visit Start Time 11:34 Visit Stop Time 12:14 Visit Number 12 (04/19 with PN) Number of WET END HELPER Visits 1 Evaluation Information Evaluation Date 02/12/24 Precautions Precautions osteoporosis left hip, osteopenia right hip osteoporosis neck PT-OP-B Current Condition Start: 02/12/24 08:02 Freq: Status: Active Protocol: Document 02/17/24 08:11 SAK (Rec: 02/17/24 09:01 SAK [id number]) Current Condition History of Current Condition Onset Date chronic since 1989 Current Complaints neck pain, arm and hand numbness, thoracic and lumbar pain History of Current Condition chronic neck pain with radicular symptoms since fishing in the [place]. Initially diagnosed with lateral epicondylitis, didn't look at neck. recent injection which helped a little. Prior injections in lumbar spine very help, no injections thoracic spine. Pain increases with sitting, bending. Has had PT in the past, has been helpful. Difficult to get motivated to do any regular exercise except golfing and walking. Uses heating pad, ice wrap. Also c /o occasional numbness in hands, varies from thumb only to entire hand. Sleeps on side, pillow under neck and head not shoulders. Has foam roller Prior Treatments and Tests Dexa scan neck MRI: stenosis and arthritis prior chiropractor but not recently Treatment Goals Patient/Caregiver Goals decrease pain and radicular symptoms PT-OP-C Subjective Start: 02/12/24 08:02 Freq: Status: Active Protocol: Document 03/26/24 11:34 SP (Rec: 03/26/24 12:22 SP [id number]) OP-PT Subjective Patient Comments Patient Comments Pt reports doing fairly good with HEP. He uses his cervical traction unit every other day and feels helping, thinks its about 20-25 deg incline. PT-OP-H Neuro Start: 02/12/24 08:02 Freq: Status: Active Protocol: Document 02/12/24 09:46 [facility] (Rec: 02/12/24 16:10 [facility] [id number]) Sensation Evaluation Gross Sensation Sensation Description Paresthesia Dermatome Impairments C5,C6 Comments Summary Comments Patient reports having more difficulty holding onto pic for playing guitar, thumb often feels numb PT-OP-J Posture/Palpation/Skin Start: 02/12/24 08:02 Freq: Status: Active Protocol: Document 02/12/24 09:46 [facility] (Rec: 02/12/24 16:10 [facility] [id number]) Posture Evaluation Position Standing Head/C-Spine Posture Forward Head T-Spine Posture Increased Kyphosis L-Spine Posture Decreased Lordosis Shoulder Posture (L) Rounded,(R) Rounded Scapula Posture (L) Protracted,(R) Protracted Arm Posture (L) Internally Rotated,(R) Internally Rotated Pelvis Posture Posterior Tilted Comments Posture Comments poor gluteal muscle tone Palpation Assessment Location c/s Palpation Findings Soft Tissue Tightness,Muscle Guarding,Tenderness PT-OP-K Range of Motion Start: 02/12/24 08:02 Freq: Status: Active Protocol: Document 02/12/24 09:46 [facility] (Rec: 02/12/24 16:10 [facility] [id number]) Cervical Spine Range of Motion Cervical Spine Active Flexion 52 Extension 40 Rotation Left 35 Rotation Right 30 Lateral Flexion Left 12 Lateral Flexion Right 44 ROM Limitations Soft Tissue Tightness, Contracture,Pain Shoulder Goniometric Range of Motion Shoulder john Shoulder ROM WFL Yes PT-OP-L Special Tests Start: 02/12/24 08:02 Freq: Status: Active Protocol: Document 02/12/24 09:46 [facility] (Rec: 02/12/24 16:10 [facility] [id number]) Special Tests Cervical Spine Special Tests Traction Test Results + Comments decrease symptoms Foraminal Compression Test Results + Comments increased tightness and pain sensation Upper Limb Tension Test Comments perform next session PT-OP-M Strength Start: 02/12/24 08:02 Freq: Status: Active Protocol: Document 02/12/24 09:46 [facility] (Rec: 02/12/24 16:10 [facility] [id number]) Cervical Spine Strength Cervical Spine Manual Muscle Testing Flexion (C1-2) 4 Good Extension 4 Good Rotation Left 4 Good Rotation Right 4 Good Lateral Flexion Left (C3) 4 Good Lateral Flexion Right (C3) 4 Good Shoulder Strength Shoulder Manual Muscle Testing Left Flexion 4 Good Extension 4 Good Abduction (C5) 4 Good Adduction 4 Good External Rotation 4- Good- Internal Rotation 4 Good Horizontal Abduction 4 Good Horizontal Adduction 4 Good Right Flexion 4 Good Extension 4 Good Abduction (C5) 4 Good Adduction 4 Good External Rotation 4- Good- Internal Rotation 4 Good Elbow/Forearm Strength Elbow and Forearm Manual Muscle Testing john Flexion (C6) 4+ Good+ Extension (C7) 4+ Good+ Pronation 4+ Good+ Supination 4+ Good+ Wrist Strength Wrist Manual Muscle Testing john Flexion (C7) 4 Good Extension (C6) 4- Good- PT-OP-Q Treatments Start: 02/12/24 08:02 Freq: Status: Active Protocol: Document 03/26/24 11:34 SP (Rec: 03/26/24 12:22 SP [id number]) Cardio Equipment Upper Body Ergometer (UBE) Duration (Minutes) 8 RPM 80 Seat Position 11 Height 3 Other 2 min fwd, 4 min bckd, cues for neutral c/s. Towel roll vertical at t/s Gym Equipment Cable Column (Body Solid) lat pull Details cues for scapular activation/ depression Resistance 25 (seated) Reps/Time 15 x to chest (over hand client leader/ shld width), 10x scap only row Details cues for scapular activation, postural alignment crack walnut Resistance 15 (seated)- rope handles Reps/Time 10x2, 10x scap only Therapeutic Exercises Prone Exercises I, T Prone Exercise Name I,T Resistance 1# DB Equipment Used over 65 cm tball Reps/Minutes 10x reps each Comments cues for scapular activation, head retraction/ nod neutral CS. Sitting Exercises SNAGS Comments verbalized uses double heavy band and gets good results loosen up neck Standing Exercises walk with beanbag Standing Exercise Name fwd, [place], up/down stairs Equipment Used beanbag on head Reps/Minutes 40 ft lap fwd, 20 ft lap [place], stairs 4x3 sets Comments improved corrections, didn't drop bag sh 90/90 ER Standing Exercise Name progressed rhomboid & LT strengthening /c wall posture Resistance AROM 5 SH x5, Tb #1 Equipment Used back to wall, towel folded behind head Reps/Minutes 10x5s each Comments cued lower angle scap toward each other & down, no LB arch venus c/s Standing Exercise Name ext & rotation Side bilateral Resistance use TB #1 at head held front Reps/Minutes 5x3-5s each side Other Exercises lat stretch Other Exercise Name TS ext and lat stretch Equipment Used Prone over ball Comments btwn prone Ys, Ts ex. Manual Therapy Treatment Consent Patient gave verbal consent for manual Yes treatment PT-OP-R Modalities Start: 02/12/24 08:02 Freq: Status: Active Protocol: Document 03/23/24 11:42 SAK (Rec: 03/23/24 12:24 SAK [id number]) Hot Pack/Cold Pack Treatment Hot Pack Location c/s, t/s Patient Position Hooklying Patient Tolerance Good Comments x15', wedge under LEs, oconnell within reach PT-OP-T Assessment and Plan Start: 02/12/24 08:02 Freq: Status: Active Protocol: Document 03/26/24 11:34 SP (Rec: 03/26/24 12:22 SP [id number]) Physical Therapy Assessment Goals Four Impairment weakness Short Term Goal (STG) Patient to be instructed in HEP for purposes of strengthening posterior chain musculature 03/18/24: GOAL MET STG Duration GOAL MET Agency Development Manager Goal (LTG) Patient will be independent and compliant with HEP and demonstrate improvement in strength to at least 4+/5 LTG Duration 05/12/24 Three Impairment postural dysfunction with forward head, rounded shoulders Short Term Goal (STG) Patient to be instructed in neutral postural alignment and importance followed by postural correction activities and exercises and strategies for improved postural alignment statically and with functional activities 03/18/24: GOAL MET STG Duration GOAL MET Agency Development Manager Goal (LTG) Patient to be able to demonstrate good postural awareness and ability to self- correct without cues and be independent and compliant with postural correction exercises and activities LTG Duration 05/12/24 Two Impairment Neck disability index score 40 % Agency Development Manager Goal (LTG) Decrease NDI to no greater than 20% as measure of improved activity tolerance and function 03/18/24: decreased to 35% LTG Duration 05/12/24 One Impairment neck pain with radicular symptoms Short Term Goal (STG) Decrease pain and radicular symptoms by at least 50% 03/18/24: min decrease in highest level of pain but less frequent, reports exercises help, partially met STG Duration 04/02/24 Mcc Goal (LTG) Decrease pain and radicular symptoms by at least 75% with all usual activities LTG Duration 05/12/24 Assessment Summary Assessment Pt improved postural corrections during ther ex. Added resistance to cervical retraction and rotation vs isometric with good feedback posterior chain stretch mobility and resisted humeral ER for posterior scapular strengthening progression for posture support. Progressed dynamic walking during posture for progressed Cervical spinal alignment corrections. Physical Therapy Plan Frequency and Duration Frequency of Treatment 2x/Week Duration of treatment (weeks) 12 Plan of Care Start Date 02/12/24 Plan of Care End Date 05/12/24 Therapeutic Interventions Therapeutic Interventions Home Exercise Program,Manual Therapy,Patient/Caregiver Education,Self-Care/Home Management,Soft Tissue Mobilization,Taping, Therapeutic Activities, Therapeutic Exercises Modalities Cold Pack/Ice Massage,Electric Stimulation,Hot Packs, Infrared Therapy,Traction- Mechanical,Ultrasound Next Visit Focus/Plan Next Note Type Treatment Note Next Visit Plan Check added resistance to CS and ER last tx. POC: Continue postural correction ex, posterior chain strengthening, manual. Issue written HO for c/s venus and eye gaze ex
--- NOTE | 2024-03-30 16:25 | PT.OTN ---
Current Diagnoses Spondylosis without myelopathy or radiculopathy, cervical region (03/30/24) Radiculopathy, cervical region (03/30/24) Abnormal posture (03/30/24) Weakness (03/30/24) Physical Therapy Treatment Note PT-OP-A Visit Information Start: 02/12/24 08:02 Freq: Status: Active Protocol: Document 03/30/24 09:42 SAK (Rec: 03/30/24 10:44 [facility] [id number]) Out-Patient Physical Therapy Visit Information Visit Information Visit Type Treatment Note Visit Start Time 09:45 Visit Stop Time 12:14 Visit Number 13 (05/20 with PN) Number of MANUFACTURING LEADER Visits 1 Evaluation Information Evaluation Date 02/12/24 Precautions Precautions osteoporosis left hip, osteopenia right hip osteoporosis neck PT-OP-B Current Condition Start: 02/12/24 08:02 Freq: Status: Active Protocol: Document 03/30/24 09:42 SAK (Rec: 03/30/24 10:44 [facility] [id number]) Current Condition History of Current Condition Onset Date chronic since 1989 Current Complaints neck pain, arm and hand numbness, thoracic and lumbar pain History of Current Condition chronic neck pain with radicular symptoms since fishing in the [place]. Initially diagnosed with lateral epicondylitis, didn't look at neck. recent injection which helped a little. Prior injections in lumbar spine very help, no injections thoracic spine. Pain increases with sitting, bending. Has had PT in the past, has been helpful. Difficult to get motivated to do any regular exercise except golfing and walking. Uses heating pad, ice wrap. Also c /o occasional numbness in hands, varies from thumb only to entire hand. Sleeps on side, pillow under neck and head not shoulders. Has foam roller Prior Treatments and Tests Dexa scan neck MRI: stenosis and arthritis prior chiropractor but not recently PT-OP-C Subjective Start: 02/12/24 08:02 Freq: Status: Active Protocol: Document 03/30/24 09:42 SAK (Rec: 03/30/24 10:44 [facility] [id number]) OP-PT Subjective Patient Comments Patient Comments Had appointment with Dr. Munoz yesterday for followup, pt brought up that the exercises prone over ball causing low back pain. PT-OP-H Neuro Start: 02/12/24 08:02 Freq: Status: Active Protocol: Document 02/12/24 09:46 [facility] (Rec: 02/12/24 16:10 [facility] [id number]) Sensation Evaluation Gross Sensation Sensation Description Paresthesia Dermatome Impairments C5,C6 Comments Summary Comments Patient reports having more difficulty holding onto pic for playing guitar, thumb often feels numb PT-OP-J Posture/Palpation/Skin Start: 02/12/24 08:02 Freq: Status: Active Protocol: Document 02/12/24 09:46 [facility] (Rec: 02/12/24 16:10 [facility] [id number]) Posture Evaluation Position Standing Head/C-Spine Posture Forward Head T-Spine Posture Increased Kyphosis L-Spine Posture Decreased Lordosis Shoulder Posture (L) Rounded,(R) Rounded Scapula Posture (L) Protracted,(R) Protracted Arm Posture (L) Internally Rotated,(R) Internally Rotated Pelvis Posture Posterior Tilted Comments Posture Comments poor gluteal muscle tone Palpation Assessment Location c/s Palpation Findings Soft Tissue Tightness,Muscle Guarding,Tenderness PT-OP-K Range of Motion Start: 02/12/24 08:02 Freq: Status: Active Protocol: Document 02/12/24 09:46 [facility] (Rec: 02/12/24 16:10 [facility] [id number]) Cervical Spine Range of Motion Cervical Spine Active Flexion 52 Extension 40 Rotation Left 35 Rotation Right 30 Lateral Flexion Left 12 Lateral Flexion Right 44 ROM Limitations Soft Tissue Tightness, Contracture,Pain Shoulder Goniometric Range of Motion Shoulder john Shoulder ROM WFL Yes PT-OP-L Special Tests Start: 02/12/24 08:02 Freq: Status: Active Protocol: Document 02/12/24 09:46 [facility] (Rec: 02/12/24 16:10 [facility] [id number]) Special Tests Cervical Spine Special Tests Traction Test Results + Comments decrease symptoms Foraminal Compression Test Results + Comments increased tightness and pain sensation Upper Limb Tension Test Comments perform next session PT-OP-M Strength Start: 02/12/24 08:02 Freq: Status: Active Protocol: Document 02/12/24 09:46 [facility] (Rec: 02/12/24 16:10 [facility] [id number]) Cervical Spine Strength Cervical Spine Manual Muscle Testing Flexion (C1-2) 4 Good Extension 4 Good Rotation Left 4 Good Rotation Right 4 Good Lateral Flexion Left (C3) 4 Good Lateral Flexion Right (C3) 4 Good Shoulder Strength Shoulder Manual Muscle Testing Left Flexion 4 Good Extension 4 Good Abduction (C5) 4 Good Adduction 4 Good External Rotation 4- Good- Internal Rotation 4 Good Horizontal Abduction 4 Good Horizontal Adduction 4 Good Right Flexion 4 Good Extension 4 Good Abduction (C5) 4 Good Adduction 4 Good External Rotation 4- Good- Internal Rotation 4 Good Elbow/Forearm Strength Elbow and Forearm Manual Muscle Testing john Flexion (C6) 4+ Good+ Extension (C7) 4+ Good+ Pronation 4+ Good+ Supination 4+ Good+ Wrist Strength Wrist Manual Muscle Testing john Flexion (C7) 4 Good Extension (C6) 4- Good- PT-OP-Q Treatments Start: 02/12/24 08:02 Freq: Status: Active Protocol: Document 03/30/24 09:42 [facility] (Rec: 03/30/24 10:44 [facility] [id number]) Cardio Equipment Upper Body Ergometer (UBE) Duration (Minutes) 8 RPM 60 Seat Position 11 Height 3 Other 2 min fwd, 4 min bckd, cues for neutral c/s. Towel roll vertical at t/s Therapeutic Exercises Supine Exercises foam roller Supine Exercise Name core stab Equipment Used L2 TB Comments feet together john and UE movements, bug, TB UE ex bug Reps/Minutes 5x TrA Supine Exercise Name with posture press Reps/Minutes 5x TS rolling Supine Exercise Name firm, med, soft foam rollers for trial Comments good form, pt assessing preference for replacing current Prone Exercises I, T Prone Exercise Name I,T Resistance 1# DB Equipment Used pillows under pelvis, towel roll under forehead Reps/Minutes 5x Comments not tolerated neck Standing Exercises sh 90/90 ER Standing Exercise Name progressed rhomboid & LT strengthening /c wall posture Resistance AROM 5 SH x5, Tb #1 Equipment Used back to wall, towel folded behind head Reps/Minutes 10x5s each Comments cued lower angle scap toward each other & down, no LB arch venus c/s Standing Exercise Name ext & rotation Side bilateral Resistance use TB #1 at head held front Reps/Minutes 5x3-5s each side Manual Therapy Treatment Consent Patient gave verbal consent for manual Yes treatment Soft Tissue Mobilization CS Body Location Cervical Spine Mobilization Type Myofascial Release,Rolling, Strumming,Sustained Pressure Intensity/Depth Moderate Body Position Supine Comments x2 pillows for cervical alignment Manual Traction Cervical Traction Details Cervical Spine Body Position Supine Reps/Duration 3x15 Comments Gentle, monitored for pt tolerance, no increase in symptoms Self-Care/Home Management Treatment Education Other Education foam roller options core stab on foam roller; will issue HO next session. PT-OP-R Modalities Start: 02/12/24 08:02 Freq: Status: Active Protocol: Document 03/30/24 09:42 [facility] (Rec: 03/30/24 16:25 SAK [id number]) Electric Stimulation Electric Stimulation Interferential Current (IFC) Body Location c/s, UT Intensity 8 Target/Sweep Sweep Patient Position Supine Combined With Heat/Cold Hot Pack PT-OP-T Assessment and Plan Start: 02/12/24 08:02 Freq: Status: Active Protocol: Document 03/30/24 09:42 [facility] (Rec: 03/30/24 10:44 [facility] [id number]) Physical Therapy Assessment Goals Four Impairment weakness Short Term Goal (STG) Patient to be instructed in HEP for purposes of strengthening posterior chain musculature 03/18/24: GOAL MET STG Duration GOAL MET Oncologist Goal (LTG) Patient will be independent and compliant with HEP and demonstrate improvement in strength to at least 4+/5 LTG Duration 05/12/24 Three Impairment postural dysfunction with forward head, rounded shoulders Short Term Goal (STG) Patient to be instructed in neutral postural alignment and importance followed by postural correction activities and exercises and strategies for improved postural alignment statically and with functional activities 03/18/24: GOAL MET STG Duration GOAL MET Oncologist Goal (LTG) Patient to be able to demonstrate good postural awareness and ability to self- correct without cues and be independent and compliant with postural correction exercises and activities LTG Duration 05/12/24 Two Impairment Neck disability index score 40 % Oncologist Goal (LTG) Decrease NDI to no greater than 20% as measure of improved activity tolerance and function 03/18/24: decreased to 35% LTG Duration 05/12/24 One Impairment neck pain with radicular symptoms Short Term Goal (STG) Decrease pain and radicular symptoms by at least 50% 03/18/24: min decrease in highest level of pain but less frequent, reports exercises help, partially met STG Duration 04/02/24 Oncologist Goal (LTG) Decrease pain and radicular symptoms by at least 75% with all usual activities LTG Duration 05/12/24 Assessment Summary Assessment Trial prone ex on table with pillows under hips; low back not painful but not able to get neck comfortable even with towel roll, discontinued. Much time supine on foam roller after initial instr TrA activation and bug supine transitioned to foam roller for core stab with emphasis on neutral c/s, good berny. second trial IFES today as patient may be borrowing TENS. Physical Therapy Plan Frequency and Duration Frequency of Treatment 2x/Week Duration of treatment (weeks) 12 Plan of Care Start Date 02/12/24 Plan of Care End Date 05/12/24 Therapeutic Interventions Therapeutic Interventions Home Exercise Program,Manual Therapy,Patient/Caregiver Education,Self-Care/Home Management,Soft Tissue Mobilization,Taping, Therapeutic Activities, Therapeutic Exercises Modalities Cold Pack/Ice Massage,Electric Stimulation,Hot Packs, Infrared Therapy,Traction- Mechanical,Ultrasound Next Visit Focus/Plan Next Note Type Treatment Note Next Visit Plan Check response to foam roller ex and second trial IFES
--- NOTE | 2024-04-08 09:46 | PT.OTN ---
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 Initially diagnosed with lateral epicondylitis, didn't look at neck. recent injection which helped a little. Prior injections in lumbar spine very help, no injections thoracic spine. Pain increases with sitting, bending. Has had PT in the past, has been helpful. Difficult to get motivated to do any regular exercise except golfing and walking. Uses heating pad, ice wrap. Also c /o occasional numbness in hands, varies from thumb only to entire hand. Sleeps on side, pillow under neck and head not shoulders. Has foam roller Prior Treatments and Tests Dexa scan neck MRI: stenosis and arthritis prior chiropractor but not recently PT-OP-C Subjective Start: 02/12/24 08:02 Freq: Status: Active Protocol: Document 04/08/24 09:04 SP (Rec: 04/08/24 10:01 SP [id number]) OP-PT Subjective Patient Comments Patient Comments Pt reports usually have to take a 500 mg Tylenol whenwakes up but didn't need to today. He stated the manual work last tx really helped lessen tension in neck. His low back was bothersome yesterday but ok today. PT-OP-H Neuro Start: 02/12/24 08:02 Freq: Status: Active Protocol: Document 02/12/24 09:46 [facility] (Rec: 02/12/24 16:10 [facility] [id number]) Sensation Evaluation Gross Sensation Sensation Description Paresthesia Dermatome Impairments C5,C6 Comments Summary Comments Patient reports having more difficulty holding onto pic for playing guitar, thumb often feels numb PT-OP-J Posture/Palpation/Skin Start: 02/12/24 08:02 Freq: Status: Active Protocol: Document 02/12/24 09:46 [facility] (Rec: 02/12/24 16:10 [facility] [id number]) Posture Evaluation Position Standing Head/C-Spine Posture Forward Head T-Spine Posture Increased Kyphosis L-Spine Posture Decreased Lordosis Shoulder Posture (L) Rounded,(R) Rounded Scapula Posture (L) Protracted,(R) Protracted Arm Posture (L) Internally Rotated,(R) Internally Rotated Pelvis Posture Posterior Tilted Comments Posture Comments poor gluteal muscle tone Palpation Assessment Location c/s Palpation Findings Soft Tissue Tightness,Muscle Guarding,Tenderness PT-OP-K Range of Motion Start: 02/12/24 08:02 Freq: Status: Active Protocol: Document 02/12/24 09:46 [facility] (Rec: 02/12/24 16:10 [facility] [id number]) Cervical Spine Range of Motion Cervical Spine Active Flexion 52 Extension 40 Rotation Left 35 Rotation Right 30 Lateral Flexion Left 12 Lateral Flexion Right 44 ROM Limitations Soft Tissue Tightness, Contracture,Pain Shoulder Goniometric Range of Motion Shoulder john Shoulder ROM WFL Yes PT-OP-L Special Tests Start: 02/12/24 08:02 Freq: Status: Active Protocol: Document 02/12/24 09:46 [facility] (Rec: 02/12/24 16:10 [facility] [id number]) Special Tests Cervical Spine Special Tests Traction Test Results + Comments decrease symptoms Foraminal Compression Test Results + Comments increased tightness and pain sensation Upper Limb Tension Test Comments perform next session PT-OP-M Strength Start: 02/12/24 08:02 Freq: Status: Active Protocol: Document 02/12/24 09:46 [facility] (Rec: 02/12/24 16:10 [facility] [id number]) Cervical Spine Strength Cervical Spine Manual Muscle Testing Flexion (C1-2) 4 Good Extension 4 Good Rotation Left 4 Good Rotation Right 4 Good Lateral Flexion Left (C3) 4 Good Lateral Flexion Right (C3) 4 Good Shoulder Strength Shoulder Manual Muscle Testing Left Flexion 4 Good Extension 4 Good Abduction (C5) 4 Good Adduction 4 Good External Rotation 4- Good- Internal Rotation 4 Good Horizontal Abduction 4 Good Horizontal Adduction 4 Good Right Flexion 4 Good Extension 4 Good Abduction (C5) 4 Good Adduction 4 Good External Rotation 4- Good- Internal Rotation 4 Good Elbow/Forearm Strength Elbow and Forearm Manual Muscle Testing john Flexion (C6) 4+ Good+ Extension (C7) 4+ Good+ Pronation 4+ Good+ Supination 4+ Good+ Wrist Strength Wrist Manual Muscle Testing john Flexion (C7) 4 Good Extension (C6) 4- Good- PT-OP-Q Treatments Start: 02/12/24 08:02 Freq: Status: Active Protocol: Document 04/08/24 09:04 SP (Rec: 04/08/24 10:01 SP [id number]) Cardio Equipment Upper Body Ergometer (UBE) Duration (Minutes) 8 RPM 60 Seat Position 11 Height 3 Other 2 min fwd, 4 min bckd, cues for neutral c/s. Towel roll vertical at t/s Therapeutic Exercises Supine Exercises foam roller Supine Exercise Name pec stretch, scap Tb, core stab Resistance TB #2 teal: Ts& FF then AROM bug Reps/Minutes 10 reps TB, 8 reps each side bug Comments cued increase OTONIEL, PPT, periscapular around roller, then bug Standing Exercises wall posture Standing Exercise Name chin tuck Side bilateral Equipment Used miracle ball behind neck Reps/Minutes 10 wall angels range Comments cued L SB, R head rotation, LB toward wall Manual Therapy Treatment Consent Patient gave verbal consent for manual Yes treatment Soft Tissue Mobilization t/s Body Location ES, paraspinals Mobilization Type Myofascial Release,Rolling, Sustained Pressure,Other Intensity/Depth Moderate Body Position Prone Comments prone over 3 pillows, pillow rectangle roll under legs, detachable face cradle cushion under face. -STMs and Caudal ribcage TS>LS with exhale - verbal review self STMs use ball wall in pillowcase and regularly uses foam roller TS ext and rolling. Shoulder Body Location B pec, bicep, deltoid Mobilization Type Myofascial Release,Rolling Intensity/Depth Moderate Body Position Hooklying Comments L bicep sensitive to pressure PT-OP-R Modalities Start: 02/12/24 08:02 Freq: Status: Active Protocol: Document 04/01/24 09:45 SAK (Rec: 04/01/24 10:38 [facility]AK [id number]) Electric Stimulation Electric Stimulation Interferential Current (IFC) Comments not tolerated Hot Pack/Cold Pack Treatment Hot Pack Location c/s, t/s Patient Position Prone Patient Tolerance Good Comments prone pillow PT-OP-T Assessment and Plan Start: 02/12/24 08:02 Freq: Status: Active Protocol: Document 04/08/24 09:04 SP (Rec: 04/08/24 10:01 SP [id number]) Physical Therapy Assessment Goals Four Impairment weakness Short Term Goal (STG) Patient to be instructed in HEP for purposes of strengthening posterior chain musculature 03/18/24: GOAL MET STG Duration GOAL MET Retail Reset Merchandiser Goal (LTG) Patient will be independent and compliant with HEP and demonstrate improvement in strength to at least 4+/5 LTG Duration 05/12/24 Three Impairment postural dysfunction with forward head, rounded shoulders Short Term Goal (STG) Patient to be instructed in neutral postural alignment and importance followed by postural correction activities and exercises and strategies for improved postural alignment statically and with functional activities 03/18/24: GOAL MET STG Duration GOAL MET Retail Reset Merchandiser Goal (LTG) Patient to be able to demonstrate good postural awareness and ability to self- correct without cues and be independent and compliant with postural correction exercises and activities LTG Duration 05/12/24 Two Impairment Neck disability index score 40 % Mcc Goal (LTG) Decrease NDI to no greater than 20% as measure of improved activity tolerance and function 03/18/24: decreased to 35% LTG Duration 05/12/24 One Impairment neck pain with radicular symptoms Short Term Goal (STG) Decrease pain and radicular symptoms by at least 50% 03/18/24: min decrease in highest level of pain but less frequent, reports exercises help, partially met STG Duration 04/02/24 Mcc Goal (LTG) Decrease pain and radicular symptoms by at least 75% with all usual activities LTG Duration 05/12/24 Assessment Summary Assessment Pt responded well to manual, use breath with caudal ribcage glide compliment thoracic and lumbar mobility. Supine over foam roller open/elongation anterior chain and strengthening posterior chain TB ex review. Continued wall posture cuing and use mirror for self corrections and took picture with pt phone for self awareness head/shld and LS positioning for carryover home visual, able to demonstrate improved self corrections. Pt reports felt great, very straight leaving appt. Physical Therapy Plan Frequency and Duration Frequency of Treatment 2x/Week Duration of treatment (weeks) 12 Plan of Care Start Date 02/12/24 Plan of Care End Date 05/12/24 Therapeutic Interventions Therapeutic Interventions Home Exercise Program,Manual Therapy,Patient/Caregiver Education,Self-Care/Home Management,Soft Tissue Mobilization,Taping, Therapeutic Activities, Therapeutic Exercises Modalities Cold Pack/Ice Massage,Electric Stimulation,Hot Packs, Infrared Therapy,Traction- Mechanical,Ultrasound Next Visit Focus/Plan Next Note Type Treatment Note Next Visit Plan Assess self STMs, wall posture self corrections. POC: Continue posterior chain strengthening, anterior stretching, postural correction, manual.
--- NOTE | 2024-04-12 17:33 | PT.OTN ---
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 Initially diagnosed with lateral epicondylitis, didn't look at neck. recent injection which helped a little. Prior injections in lumbar spine very help, no injections thoracic spine. Pain increases with sitting, bending. Has had PT in the past, has been helpful. Difficult to get motivated to do any regular exercise except golfing and walking. Uses heating pad, ice wrap. Also c /o occasional numbness in hands, varies from thumb only to entire hand. Sleeps on side, pillow under neck and head not shoulders. Has foam roller Prior Treatments and Tests Dexa scan neck MRI: stenosis and arthritis prior chiropractor but not recently PT-OP-C Subjective Start: 02/12/24 08:02 Freq: Status: Active Protocol: Document 04/12/24 09:47 SAK (Rec: 04/12/24 10:46 [facility] [id number]) OP-PT Subjective Patient Comments Patient Comments Woke up with a kink right side of his neck, used traction and the stick massage roller . PT-OP-H Neuro Start: 02/12/24 08:02 Freq: Status: Active Protocol: Document 02/12/24 09:46 [facility] (Rec: 02/12/24 16:10 [facility] [id number]) Sensation Evaluation Gross Sensation Sensation Description Paresthesia Dermatome Impairments C5,C6 Comments Summary Comments Patient reports having more difficulty holding onto pic for playing guitar, thumb often feels numb PT-OP-J Posture/Palpation/Skin Start: 02/12/24 08:02 Freq: Status: Active Protocol: Document 02/12/24 09:46 [facility] (Rec: 02/12/24 16:10 [facility] [id number]) Posture Evaluation Position Standing Head/C-Spine Posture Forward Head T-Spine Posture Increased Kyphosis L-Spine Posture Decreased Lordosis Shoulder Posture (L) Rounded,(R) Rounded Scapula Posture (L) Protracted,(R) Protracted Arm Posture (L) Internally Rotated,(R) Internally Rotated Pelvis Posture Posterior Tilted Comments Posture Comments poor gluteal muscle tone Palpation Assessment Location c/s Palpation Findings Soft Tissue Tightness,Muscle Guarding,Tenderness PT-OP-K Range of Motion Start: 02/12/24 08:02 Freq: Status: Active Protocol: Document 02/12/24 09:46 [facility] (Rec: 02/12/24 16:10 [facility] [id number]) Cervical Spine Range of Motion Cervical Spine Active Flexion 52 Extension 40 Rotation Left 35 Rotation Right 30 Lateral Flexion Left 12 Lateral Flexion Right 44 ROM Limitations Soft Tissue Tightness, Contracture,Pain Shoulder Goniometric Range of Motion Shoulder john Shoulder ROM WFL Yes PT-OP-L Special Tests Start: 02/12/24 08:02 Freq: Status: Active Protocol: Document 02/12/24 09:46 [facility] (Rec: 02/12/24 16:10 [facility] [id number]) Special Tests Cervical Spine Special Tests Traction Test Results + Comments decrease symptoms Foraminal Compression Test Results + Comments increased tightness and pain sensation Upper Limb Tension Test Comments perform next session PT-OP-M Strength Start: 02/12/24 08:02 Freq: Status: Active Protocol: Document 02/12/24 09:46 [facility] (Rec: 02/12/24 16:10 [facility] [id number]) Cervical Spine Strength Cervical Spine Manual Muscle Testing Flexion (C1-2) 4 Good Extension 4 Good Rotation Left 4 Good Rotation Right 4 Good Lateral Flexion Left (C3) 4 Good Lateral Flexion Right (C3) 4 Good Shoulder Strength Shoulder Manual Muscle Testing Left Flexion 4 Good Extension 4 Good Abduction (C5) 4 Good Adduction 4 Good External Rotation 4- Good- Internal Rotation 4 Good Horizontal Abduction 4 Good Horizontal Adduction 4 Good Right Flexion 4 Good Extension 4 Good Abduction (C5) 4 Good Adduction 4 Good External Rotation 4- Good- Internal Rotation 4 Good Elbow/Forearm Strength Elbow and Forearm Manual Muscle Testing john Flexion (C6) 4+ Good+ Extension (C7) 4+ Good+ Pronation 4+ Good+ Supination 4+ Good+ Wrist Strength Wrist Manual Muscle Testing john Flexion (C7) 4 Good Extension (C6) 4- Good- PT-OP-Q Treatments Start: 02/12/24 08:02 Freq: Status: Active Protocol: Document 04/12/24 09:47 [facility] (Rec: 04/12/24 10:46 [facility] [id number]) Cardio Equipment Upper Body Ergometer (UBE) Duration (Minutes) 8 RPM 60 Seat Position 11 Height 3 Other 2 min fwd, 4 min bckd, cues for neutral c/s. Towel roll vertical at t/s Therapeutic Exercises Supine Exercises foam roller Supine Exercise Name pec stretch, scap Tb, core stab, pull downs (wand and L2 TB) Resistance TB #2 teal: Ts& FF then AROM bug Reps/Minutes 10 reps TB, 8 reps each side bug Comments cued increase OTONIEL, PPT, periscapular around roller, then bug Prone Exercises Escobar Prone Exercise Name superman Comments HEP Standing Exercises wall posture Standing Exercise Name chin tuck Side bilateral Equipment Used miracle ball behind neck Reps/Minutes 10 wall angels range Comments cued L SB, R head rotation, LB toward wall Manual Therapy Treatment Soft Tissue Mobilization t/s Body Location ES, paraspinals Mobilization Type Myofascial Release,Rolling, Sustained Pressure,Other Intensity/Depth Moderate Body Position Prone Comments prone over prone pillow, pillow rectangle roll under legs, detachable face cradle cushion under face. -STMs and Caudal ribcage TS>LS with exhale - verbal review self STMs use ball wall in pillowcase and regularly uses foam roller TS ext and rolling. Shoulder Body Location B pec, bicep, deltoid Mobilization Type Myofascial Release,Rolling Intensity/Depth Moderate Body Position Hooklying Comments L bicep sensitive to pressure PT-OP-R Modalities Start: 02/12/24 08:02 Freq: Status: Active Protocol: Document 04/12/24 09:47 [facility]AK (Rec: 04/12/24 10:46 [facility] [id number]) Hot Pack/Cold Pack Treatment Hot Pack Location c/s, t/s Patient Position Prone Patient Tolerance Good Comments prone pillow PT-OP-T Assessment and Plan Start: 02/12/24 08:02 Freq: Status: Active Protocol: Document 04/12/24 09:47 SAK (Rec: 04/12/24 10:46 [facility] [id number]) Physical Therapy Assessment Goals Four Impairment weakness Short Term Goal (STG) Patient to be instructed in HEP for purposes of strengthening posterior chain musculature 03/18/24: GOAL MET STG Duration GOAL MET Custodial Goal (LTG) Patient will be independent and compliant with HEP and demonstrate improvement in strength to at least 4+/5 LTG Duration 05/12/24 Three Impairment postural dysfunction with forward head, rounded shoulders Short Term Goal (STG) Patient to be instructed in neutral postural alignment and importance followed by postural correction activities and exercises and strategies for improved postural alignment statically and with functional activities 03/18/24: GOAL MET STG Duration GOAL MET Private Secretary Goal (LTG) Patient to be able to demonstrate good postural awareness and ability to self- correct without cues and be independent and compliant with postural correction exercises and activities LTG Duration 05/12/24 Two Impairment Neck disability index score 40 % Private Secretary Goal (LTG) Decrease NDI to no greater than 20% as measure of improved activity tolerance and function 03/18/24: decreased to 35% LTG Duration 05/12/24 One Impairment neck pain with radicular symptoms Short Term Goal (STG) Decrease pain and radicular symptoms by at least 50% 03/18/24: min decrease in highest level of pain but less frequent, reports exercises help, partially met STG Duration 04/02/24 Private Secretary Goal (LTG) Decrease pain and radicular symptoms by at least 75% with all usual activities LTG Duration 05/12/24 Assessment Summary Assessment Patient responds well to treatment with decrease in pain but symptoms highly irritable with postural habits and activities, severity of forward head especially. Good compliance to HEP. Physical Therapy Plan Frequency and Duration Frequency of Treatment 2x/Week Duration of treatment (weeks) 12 Plan of Care Start Date 02/12/24 Plan of Care End Date 05/12/24 Therapeutic Interventions Therapeutic Interventions Home Exercise Program,Manual Therapy,Patient/Caregiver Education,Self-Care/Home Management,Soft Tissue Mobilization,Taping, Therapeutic Activities, Therapeutic Exercises Modalities Cold Pack/Ice Massage,Electric Stimulation,Hot Packs, Infrared Therapy,Traction- Mechanical,Ultrasound Next Visit Focus/Plan Next Note Type Treatment Note Next Visit Plan Emphasis deep neck flexor strengthening, postural correction, posterior chain strengthening. Try wall posture with head and shoulders against wall and work to bring thoracic and lumbar spines toward wall. Manual prone to thoracic spine , supine c/s.
--- NOTE | 2024-04-21 10:44 | PT.OTN ---
Current Diagnoses Spondylosis without myelopathy or radiculopathy, cervical region (04/21/24) Radiculopathy, cervical region (04/21/24) Abnormal posture (04/21/24) Weakness (04/21/24) Physical Therapy Treatment Note PT-OP-A Visit Information Start: 02/12/24 08:02 Freq: Status: Active Protocol: Document 04/21/24 09:49 [facility] (Rec: 04/21/24 10:44 [facility] [id number]) Out-Patient Physical Therapy Visit Information Visit Information Visit Type Treatment Note Visit Start Time 09:50 Visit Number 16 (08/19 with PN) Number of HULL SORTER Visits 0 Evaluation Information Evaluation Date 02/12/24 Precautions Precautions osteoporosis left hip, osteopenia right hip osteoporosis neck PT-OP-B Current Condition Start: 02/12/24 08:02 Freq: Status: Active Protocol: Document 04/21/24 09:49 [facility] (Rec: 04/21/24 10:44 [facility] [id number]) Current Condition History of Current Condition Onset Date chronic since 1989 Current Complaints neck pain, arm and hand numbness, thoracic and lumbar pain History of Current Condition chronic neck pain with radicular symptoms since [place] the [employer]. Initially diagnosed with lateral epicondylitis, didn't look at neck. recent injection which helped a little. Prior injections in lumbar spine very help, no injections thoracic spine. Pain increases with sitting, bending. Has had PT in the past, has been helpful. Difficult to get motivated to do any regular exercise except golfing and walking. Uses heating pad, ice wrap. Also c /o occasional numbness in hands, varies from thumb only to entire hand. Sleeps on side, pillow under neck and head not shoulders. Has foam roller Prior Treatments and Tests Dexa scan neck MRI: stenosis and arthritis prior chiropractor but not recently PT-OP-C Subjective Start: 02/12/24 08:02 Freq: Status: Active Protocol: Document 04/21/24 09:49 [facility] (Rec: 04/21/24 10:44 [facility] [id number]) OP-PT Subjective Patient Comments Patient Comments Actually pretty good, thinks slept wrong right shoulder. Overall pretty good. Playing lots of guitar, more aware of posture, now doing strengthening, not just stretching on foarm roller PT-OP-H Neuro Start: 02/12/24 08:02 Freq: Status: Active Protocol: Document 02/12/24 09:46 [facility] (Rec: 02/12/24 16:10 [facility] [id number]) Sensation Evaluation Gross Sensation Sensation Description Paresthesia Dermatome Impairments C5,C6 Comments Summary Comments Patient reports having more difficulty holding onto pic for playing [employer], thumb often feels numb PT-OP-J Posture/Palpation/Skin Start: 02/12/24 08:02 Freq: Status: Active Protocol: Document 02/12/24 09:46 [facility] (Rec: 02/12/24 16:10 [facility] [id number]) Posture Evaluation Position Standing Head/C-Spine Posture Forward Head T-Spine Posture Increased Kyphosis L-Spine Posture Decreased Lordosis Shoulder Posture (L) Rounded,(R) Rounded Scapula Posture (L) Protracted,(R) Protracted Arm Posture (L) Internally Rotated,(R) Internally Rotated Pelvis Posture Posterior Tilted Comments Posture Comments poor gluteal muscle tone Palpation Assessment Location c/s Palpation Findings Soft Tissue Tightness,Muscle Guarding,Tenderness PT-OP-K Range of Motion Start: 02/12/24 08:02 Freq: Status: Active Protocol: Document 02/12/24 09:46 [facility] (Rec: 02/12/24 16:10 [facility] [id number]) Cervical Spine Range of Motion Cervical Spine Active Flexion 52 Extension 40 Rotation Left 35 Rotation Right 30 Lateral Flexion Left 12 Lateral Flexion Right 44 ROM Limitations Soft Tissue Tightness, Contracture,Pain Shoulder Goniometric Range of Motion Shoulder john Shoulder ROM WFL Yes PT-OP-L Special Tests Start: 02/12/24 08:02 Freq: Status: Active Protocol: Document 02/12/24 09:46 [facility] (Rec: 02/12/24 16:10 [facility] [id number]) Special Tests Cervical Spine Special Tests Traction Test Results + Comments decrease symptoms Foraminal Compression Test Results + Comments increased tightness and pain sensation Upper Limb Tension Test Comments perform next session PT-OP-M Strength Start: 02/12/24 08:02 Freq: Status: Active Protocol: Document 02/12/24 09:46 [facility] (Rec: 02/12/24 16:10 [facility] [id number]) Cervical Spine Strength Cervical Spine Manual Muscle Testing Flexion (C1-2) 4 Good Extension 4 Good Rotation Left 4 Good Rotation Right 4 Good Lateral Flexion Left (C3) 4 Good Lateral Flexion Right (C3) 4 Good Shoulder Strength Shoulder Manual Muscle Testing Left Flexion 4 Good Extension 4 Good Abduction (C5) 4 Good Adduction 4 Good External Rotation 4- Good- Internal Rotation 4 Good Horizontal Abduction 4 Good Horizontal Adduction 4 Good Right Flexion 4 Good Extension 4 Good Abduction (C5) 4 Good Adduction 4 Good External Rotation 4- Good- Internal Rotation 4 Good Elbow/Forearm Strength Elbow and Forearm Manual Muscle Testing john Flexion (C6) 4+ Good+ Extension (C7) 4+ Good+ Pronation 4+ Good+ Supination 4+ Good+ Wrist Strength Wrist Manual Muscle Testing john Flexion (C7) 4 Good Extension (C6) 4- Good- PT-OP-Q Treatments Start: 02/12/24 08:02 Freq: Status: Active Protocol: Document 04/21/24 09:49 [facility] (Rec: 04/21/24 10:44 [facility] [id number]) Cardio Equipment Upper Body Ergometer (UBE) Duration (Minutes) 8 RPM 60 Seat Position 11 Height 3 Other 2 min fwd, 4 min bckd, cues for neutral c/s. Towel roll vertical at t/s Therapeutic Exercises Supine Exercises foam roller Supine Exercise Name pec stretch, scap Tb, core stab, pull downs (wand and L2 TB) Resistance TB #2 teal: Ts& FF then AROM bug Reps/Minutes 10 reps TB, 8 reps each side bug Comments cued increase OTONIEL, PPT, periscapular around roller, then bug Standing Exercises walk with beanbag Standing Exercise Name fwd, grapevine, up/down stairs Equipment Used beanbag on head Reps/Minutes 40 ft lap fwd, 20 ft lap grapevine, stairs 4x3 sets Comments improved corrections, didn't drop bag wall posture Standing Exercise Name chin tuck Side bilateral Equipment Used miracle ball behind neck Reps/Minutes 10 wall angels range Comments start head against wall Manual Therapy Treatment Soft Tissue Mobilization t/s Body Location ES, paraspinals Mobilization Type Myofascial Release,Rolling, Sustained Pressure,Other Intensity/Depth Moderate Body Position Prone Comments prone over prone pillow, pillow rectangle roll under legs, detachable face cradle cushion under face. -STMs and Caudal ribcage TS>LS with exhale - verbal review self STMs use ball wall in pillowcase and regularly uses foam roller TS ext and rolling. CS Body Location Cervical Spine Mobilization Type Myofascial Release,Rolling, Strumming,Sustained Pressure Intensity/Depth Moderate Body Position Supine Comments x2 pillows for cervical alignment PT-OP-R Modalities Start: 02/12/24 08:02 Freq: Status: Active Protocol: Document 04/21/24 09:49 [facility] (Rec: 04/21/24 10:44 [facility] [id number]) Hot Pack/Cold Pack Treatment Hot Pack Location c/s, t/s Patient Position Prone Patient Tolerance Good Comments prone pillow PT-OP-T Assessment and Plan Start: 02/12/24 08:02 Freq: Status: Active Protocol: Document 04/21/24 09:49 [facility] (Rec: 04/21/24 10:44 [facility] [id number]) Physical Therapy Assessment Goals Four Impairment weakness Short Term Goal (STG) Patient to be instructed in HEP for purposes of strengthening posterior chain musculature 03/18/24: GOAL MET STG Duration GOAL MET Storeperson Goal (LTG) Patient will be independent and compliant with HEP and demonstrate improvement in strength to at least 4+/5 LTG Duration 05/12/24 Three Impairment postural dysfunction with forward head, rounded shoulders Short Term Goal (STG) Patient to be instructed in neutral postural alignment and importance followed by postural correction activities and exercises and strategies for improved postural alignment statically and with functional activities 03/18/24: GOAL MET STG Duration GOAL MET [facility] Goal (LTG) Patient to be able to demonstrate good postural awareness and ability to self- correct without cues and be independent and compliant with postural correction exercises and activities LTG Duration 05/12/24 Two Impairment Neck disability index score 40 % [facility] Goal (LTG) Decrease NDI to no greater than 20% as measure of improved activity tolerance and function 03/18/24: decreased to 35% LTG Duration 05/12/24 One Impairment neck pain with radicular symptoms Short Term Goal (STG) Decrease pain and radicular symptoms by at least 50% 03/18/24: min decrease in highest level of pain but less frequent, reports exercises help, partially met STG Duration 04/02/24 Storeperson Goal (LTG) Decrease pain and radicular symptoms by at least 75% with all usual activities LTG Duration 05/12/24 Assessment Summary Assessment Noting improved posture coming into PT, decreased pain reported today. Good compliance to HEP. Physical Therapy Plan Frequency and Duration Frequency of Treatment 2x/Week Duration of treatment (weeks) 12 Plan of Care Start Date 02/12/24 Plan of Care End Date 05/12/24 Therapeutic Interventions Therapeutic Interventions Home Exercise Program,Manual Therapy,Patient/Caregiver Education,Self-Care/Home Management,Soft Tissue Mobilization,Taping, Therapeutic Activities, Therapeutic Exercises Modalities Cold Pack/Ice Massage,Electric Stimulation,Hot Packs, Infrared Therapy,Traction- Mechanical,Ultrasound Next Visit Focus/Plan Next Note Type Treatment Note Next Visit Plan Emphasis deep neck flexor strengthening, postural correction, posterior chain strengthening. Manual prone to thoracic spine, supine c/s.
--- NOTE | 2024-04-28 12:12 | PT.OTN ---
Current Diagnoses Spondylosis without myelopathy or radiculopathy, cervical region (04/28/24) Radiculopathy, cervical region (04/28/24) Abnormal posture (04/28/24) Weakness (04/28/24) Physical Therapy Treatment Note PT-OP-A Visit Information Start: 02/12/24 08:02 Freq: Status: Active Protocol: Document 04/28/24 10:40 SAK (Rec: 04/28/24 11:25 [facility] [id number]) Out-Patient Physical Therapy Visit Information Visit Information Visit Type Treatment Note Visit Start Time 10:45 Visit Stop Time 11:38 Visit Number 17 (09/19 with PN) Number of VERMIN EXTERMINATOR Visits 0 Evaluation Information Evaluation Date 02/12/24 Precautions Precautions osteoporosis left hip, osteopenia right hip osteoporosis neck PT-OP-B Current Condition Start: 02/12/24 08:02 Freq: Status: Active Protocol: Document 04/28/24 10:40 SAK (Rec: 04/28/24 11:25 [facility] [id number]) Current Condition History of Current Condition Onset Date chronic since 1989 Current Complaints neck pain, arm and hand numbness, thoracic and lumbar pain History of Current Condition 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 Initially diagnosed with lateral epicondylitis, didn't look at neck. recent injection which helped a little. Prior injections in lumbar spine very help, no injections thoracic spine. Pain increases with sitting, bending. Has had PT in the past, has been helpful. Difficult to get motivated to do any regular exercise except golfing and walking. Uses heating pad, ice wrap. Also c /o occasional numbness in hands, varies from thumb only to entire hand. Sleeps on side, pillow under neck and head not shoulders. Has foam roller Prior Treatments and Tests Dexa scan neck MRI: stenosis and arthritis prior chiropractor but not recently PT-OP-C Subjective Start: 02/12/24 08:02 Freq: Status: Active Protocol: Document 04/28/24 10:40 SAK (Rec: 04/28/24 11:25 SAK [id number]) OP-PT Subjective Patient Comments Patient Comments Didn't do exercises yesterday, golfing instead, can feel it today. Hasn't found massage therapist yet. PT-OP-H Neuro Start: 02/12/24 08:02 Freq: Status: Active Protocol: Document 02/12/24 09:46 [facility] (Rec: 02/12/24 16:10 [facility] [id number]) Sensation Evaluation Gross Sensation Sensation Description Paresthesia Dermatome Impairments C5,C6 Comments Summary Comments Patient reports having more difficulty holding onto pic for playing guitar, thumb often feels numb PT-OP-J Posture/Palpation/Skin Start: 02/12/24 08:02 Freq: Status: Active Protocol: Document 02/12/24 09:46 [facility] (Rec: 02/12/24 16:10 [facility] [id number]) Posture Evaluation Position Standing Head/C-Spine Posture Forward Head T-Spine Posture Increased Kyphosis L-Spine Posture Decreased Lordosis Shoulder Posture (L) Rounded,(R) Rounded Scapula Posture (L) Protracted,(R) Protracted Arm Posture (L) Internally Rotated,(R) Internally Rotated Pelvis Posture Posterior Tilted Comments Posture Comments poor gluteal muscle tone Palpation Assessment Location c/s Palpation Findings Soft Tissue Tightness,Muscle Guarding,Tenderness PT-OP-K Range of Motion Start: 02/12/24 08:02 Freq: Status: Active Protocol: Document 02/12/24 09:46 [facility] (Rec: 02/12/24 16:10 [facility] [id number]) Cervical Spine Range of Motion Cervical Spine Active Flexion 52 Extension 40 Rotation Left 35 Rotation Right 30 Lateral Flexion Left 12 Lateral Flexion Right 44 ROM Limitations Soft Tissue Tightness, Contracture,Pain Shoulder Goniometric Range of Motion Shoulder john Shoulder ROM WFL Yes PT-OP-L Special Tests Start: 02/12/24 08:02 Freq: Status: Active Protocol: Document 02/12/24 09:46 [facility] (Rec: 02/12/24 16:10 [facility] [id number]) Special Tests Cervical Spine Special Tests Traction Test Results + Comments decrease symptoms Foraminal Compression Test Results + Comments increased tightness and pain sensation Upper Limb Tension Test Comments perform next session PT-OP-M Strength Start: 02/12/24 08:02 Freq: Status: Active Protocol: Document 02/12/24 09:46 [facility] (Rec: 02/12/24 16:10 [facility] [id number]) Cervical Spine Strength Cervical Spine Manual Muscle Testing Flexion (C1-2) 4 Good Extension 4 Good Rotation Left 4 Good Rotation Right 4 Good Lateral Flexion Left (C3) 4 Good Lateral Flexion Right (C3) 4 Good Shoulder Strength Shoulder Manual Muscle Testing Left Flexion 4 Good Extension 4 Good Abduction (C5) 4 Good Adduction 4 Good External Rotation 4- Good- Internal Rotation 4 Good Horizontal Abduction 4 Good Horizontal Adduction 4 Good Right Flexion 4 Good Extension 4 Good Abduction (C5) 4 Good Adduction 4 Good External Rotation 4- Good- Internal Rotation 4 Good Elbow/Forearm Strength Elbow and Forearm Manual Muscle Testing john Flexion (C6) 4+ Good+ Extension (C7) 4+ Good+ Pronation 4+ Good+ Supination 4+ Good+ Wrist Strength Wrist Manual Muscle Testing john Flexion (C7) 4 Good Extension (C6) 4- Good- PT-OP-Q Treatments Start: 02/12/24 08:02 Freq: Status: Active Protocol: Document 04/28/24 10:40 SAK (Rec: 04/28/24 11:25 [facility] [id number]) Cardio Equipment Upper Body Ergometer (UBE) Duration (Minutes) 8 RPM 60 Seat Position 11 Height 3 Other 2 min fwd, 4 min bckd, cues for neutral c/s. Towel roll vertical at t/s Gym Equipment Cable Column (Body Solid) lat pull Details cues for scapular activation/ depression Resistance 30 (seated) Reps/Time 15 x to chest (over hand seals engraver/ shld width), 10x scap only row Details cues for scapular activation, postural alignment crack walnut Resistance 15 (seated)- rope handles Reps/Time 10x2, 10x scap only Therapeutic Exercises Sitting Exercises SNAGS Comments verbalized uses double heavy band and gets good results loosen up neck Standing Exercises walk with beanbag Standing Exercise Name fwd, [place], up/down stairs Equipment Used beanbag on head Reps/Minutes 40 ft lap fwd, 20 ft lap grapevine, stairs 4x3 sets Comments improved corrections, didn't drop bag venus c/s Standing Exercise Name ext & rotation Side bilateral Resistance use TB #1 at head held behind Reps/Minutes 5x3-5s each side wall posture Standing Exercise Name chin tuck Side bilateral Equipment Used L1 TB for cervical extension Reps/Minutes 10 wall angels range Comments start head against wall Manual Therapy Treatment Soft Tissue Mobilization t/s Body Location ES, paraspinals Mobilization Type Myofascial Release,Rolling, Sustained Pressure,Other Intensity/Depth Moderate Body Position Prone Comments prone over prone pillow, pillow rectangle roll under legs, detachable face cradle cushion under face. -STMs and Caudal ribcage TS>LS with exhale - verbal review self STMs use ball wall in pillowcase and regularly uses foam roller TS ext and rolling. CS Body Location Cervical Spine Mobilization Type Myofascial Release,Rolling, Strumming,Sustained Pressure Intensity/Depth Moderate Body Position Supine Comments x2 pillows for cervical alignment Joint Mobilizations MWM cervical rot Grade II Body Position Supine Self-Care/Home Management Treatment Education Patient Education Body Mechanics,Home Exercise Program,Pain Management, Posture PT-OP-R Modalities Start: 02/12/24 08:02 Freq: Status: Active Protocol: Document 04/28/24 10:40 SAK (Rec: 04/28/24 11:25 [facility] [id number]) Hot Pack/Cold Pack Treatment Hot Pack Location c/s, t/s Patient Position Prone Patient Tolerance Good Comments prone pillow PT-OP-T Assessment and Plan Start: 02/12/24 08:02 Freq: Status: Active Protocol: Document 04/28/24 10:40 SAK (Rec: 04/28/24 11:25 [facility] [id number]) Physical Therapy Assessment Goals Four Impairment weakness Short Term Goal (STG) Patient to be instructed in HEP for purposes of strengthening posterior chain musculature 03/18/24: GOAL MET STG Duration GOAL MET Group Home Goal (LTG) Patient will be independent and compliant with HEP and demonstrate improvement in strength to at least 4+/5 LTG Duration 05/12/24 Three Impairment postural dysfunction with forward head, rounded shoulders Short Term Goal (STG) Patient to be instructed in neutral postural alignment and importance followed by postural correction activities and exercises and strategies for improved postural alignment statically and with functional activities 03/18/24: GOAL MET STG Duration GOAL MET Staff Sonographer Goal (LTG) Patient to be able to demonstrate good postural awareness and ability to self- correct without cues and be independent and compliant with postural correction exercises and activities LTG Duration 05/12/24 Two Impairment Neck disability index score 40 % Staff Sonographer Goal (LTG) Decrease NDI to no greater than 20% as measure of improved activity tolerance and function 03/18/24: decreased to 35% LTG Duration 05/12/24 One Impairment neck pain with radicular symptoms Short Term Goal (STG) Decrease pain and radicular symptoms by at least 50% 03/18/24: min decrease in highest level of pain but less frequent, reports exercises help, partially met STG Duration 04/02/24 Staff Sonographer Goal (LTG) Decrease pain and radicular symptoms by at least 75% with all usual activities LTG Duration 05/12/24 Assessment Summary Assessment Improved right c/s rotation with MWM, mild discomfort. Noting improved PA mobility thoracic spine. Physical Therapy Plan Frequency and Duration Frequency of Treatment 2x/Week Duration of treatment (weeks) 12 Plan of Care Start Date 02/12/24 Plan of Care End Date 05/12/24 Therapeutic Interventions Therapeutic Interventions Home Exercise Program,Manual Therapy,Patient/Caregiver Education,Self-Care/Home Management,Soft Tissue Mobilization,Taping, Therapeutic Activities, Therapeutic Exercises Modalities Cold Pack/Ice Massage,Electric Stimulation,Hot Packs, Infrared Therapy,Traction- Mechanical,Ultrasound Next Visit Focus/Plan Next Note Type Treatment Note Next Visit Plan Continue PT per POC for postural correction, posterior chain, deep neck flexor strengtheing. Manual t/s and c/s.
--- NOTE | 2024-05-07 09:45 | PT.OTN ---
Current Diagnoses Spondylosis without myelopathy or radiculopathy, cervical region (05/07/24) Radiculopathy, cervical region (05/07/24) Abnormal posture (05/07/24) Weakness (05/07/24) Physical Therapy Treatment Note PT-OP-A Visit Information Start: 02/12/24 08:02 Freq: Status: Active Protocol: Document 05/07/24 09:03 SP (Rec: 05/07/24 10:03 SP [id number]) Out-Patient Physical Therapy Visit Information Visit Information Visit Type Treatment Note Visit Start Time 09:03 Visit Stop Time 09:45 Visit Number 18 (10/20 with PN) Number of WEDDING MAKEUP ARTIST Visits 1 Evaluation Information Evaluation Date 02/12/24 Precautions Precautions osteoporosis left hip, osteopenia right hip osteoporosis neck PT-OP-B Current Condition Start: 02/12/24 08:02 Freq: Status: Active Protocol: Document 04/28/24 10:40 SAK (Rec: 04/28/24 11:25 SAK [id number]) Current Condition History of Current Condition Onset Date chronic since 1989 Current Complaints neck pain, arm and hand numbness, thoracic and lumbar pain History of Current Condition 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 Initially diagnosed with lateral epicondylitis, didn't look at neck. recent injection which helped a little. Prior injections in lumbar spine very help, no injections thoracic spine. Pain increases with sitting, bending. Has had PT in the past, has been helpful. Difficult to get motivated to do any regular exercise except golfing and walking. Uses heating pad, ice wrap. Also c /o occasional numbness in hands, varies from thumb only to entire hand. Sleeps on side, pillow under neck and head not shoulders. Has foam roller Prior Treatments and Tests Dexa scan neck MRI: stenosis and arthritis prior chiropractor but not recently PT-OP-C Subjective Start: 02/12/24 08:02 Freq: Status: Active Protocol: Document 05/07/24 09:03 SP (Rec: 05/07/24 10:03 SP [id number]) OP-PT Subjective Patient Comments Patient Comments Pt reports has not performed HEP as much as should. [place] fine after last tx. Feeling really tight neck/midback, can time for manual. PT-OP-H Neuro Start: 02/12/24 08:02 Freq: Status: Active Protocol: Document 02/12/24 09:46 [facility] (Rec: 02/12/24 16:10 [facility] [id number]) Sensation Evaluation Gross Sensation Sensation Description Paresthesia Dermatome Impairments C5,C6 Comments Summary Comments Patient reports having more difficulty holding onto pic for playing guitar, thumb often feels numb PT-OP-J Posture/Palpation/Skin Start: 02/12/24 08:02 Freq: Status: Active Protocol: Document 02/12/24 09:46 [facility] (Rec: 02/12/24 16:10 [facility] [id number]) Posture Evaluation Position Standing Head/C-Spine Posture Forward Head T-Spine Posture Increased Kyphosis L-Spine Posture Decreased Lordosis Shoulder Posture (L) Rounded,(R) Rounded Scapula Posture (L) Protracted,(R) Protracted Arm Posture (L) Internally Rotated,(R) Internally Rotated Pelvis Posture Posterior Tilted Comments Posture Comments poor gluteal muscle tone Palpation Assessment Location c/s Palpation Findings Soft Tissue Tightness,Muscle Guarding,Tenderness PT-OP-K Range of Motion Start: 02/12/24 08:02 Freq: Status: Active Protocol: Document 02/12/24 09:46 [facility] (Rec: 02/12/24 16:10 [facility] [id number]) Cervical Spine Range of Motion Cervical Spine Active Flexion 52 Extension 40 Rotation Left 35 Rotation Right 30 Lateral Flexion Left 12 Lateral Flexion Right 44 ROM Limitations Soft Tissue Tightness, Contracture,Pain Shoulder Goniometric Range of Motion Shoulder john Shoulder ROM WFL Yes PT-OP-L Special Tests Start: 02/12/24 08:02 Freq: Status: Active Protocol: Document 02/12/24 09:46 [facility] (Rec: 02/12/24 16:10 [facility] [id number]) Special Tests Cervical Spine Special Tests Traction Test Results + Comments decrease symptoms Foraminal Compression Test Results + Comments increased tightness and pain sensation Upper Limb Tension Test Comments perform next session PT-OP-M Strength Start: 02/12/24 08:02 Freq: Status: Active Protocol: Document 02/12/24 09:46 [facility] (Rec: 02/12/24 16:10 [facility] [id number]) Cervical Spine Strength Cervical Spine Manual Muscle Testing Flexion (C1-2) 4 Good Extension 4 Good Rotation Left 4 Good Rotation Right 4 Good Lateral Flexion Left (C3) 4 Good Lateral Flexion Right (C3) 4 Good Shoulder Strength Shoulder Manual Muscle Testing Left Flexion 4 Good Extension 4 Good Abduction (C5) 4 Good Adduction 4 Good External Rotation 4- Good- Internal Rotation 4 Good Horizontal Abduction 4 Good Horizontal Adduction 4 Good Right Flexion 4 Good Extension 4 Good Abduction (C5) 4 Good Adduction 4 Good External Rotation 4- Good- Internal Rotation 4 Good Elbow/Forearm Strength Elbow and Forearm Manual Muscle Testing john Flexion (C6) 4+ Good+ Extension (C7) 4+ Good+ Pronation 4+ Good+ Supination 4+ Good+ Wrist Strength Wrist Manual Muscle Testing john Flexion (C7) 4 Good Extension (C6) 4- Good- PT-OP-Q Treatments Start: 02/12/24 08:02 Freq: Status: Active Protocol: Document 05/07/24 09:03 SP (Rec: 05/07/24 10:03 SP [id number]) Cardio Equipment Upper Body Ergometer (UBE) Duration (Minutes) 8 RPM 55 Seat Position 11 Height 3 Other 2 min fwd, 4 min bckd, cues for neutral c/s. 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), 10x scap only row Details cues for scapular activation, postural alignment crack walnut Resistance 1.5 plates (seated)- rope handles Reps/Time 10x2, 10x scap only Therapeutic Exercises Sidelying Exercises open book Sidelying Exercise Name post manual Side bilateral Reps/Minutes 8 reps post manual, 2 breathes end feel Comments Improved ribcage & TS rotation mobility Sitting Exercises SNAGS Sitting Exercise Name Ext and Rotation Side bilateral Resistance AAROM stretch (home turns resist into band) Equipment Used pillow case (uses heavy reistance band home) Reps/Minutes 2 reps each stretch Comments good response stretch Manual Therapy Treatment Consent Patient gave verbal consent for manual Yes treatment Soft Tissue Mobilization R hand/forearm Body Location flexors, extensors and intrinsics Mobilization Type Rolling Body Position Sitting Comments diminished cramp in R hand during initial set cable rows, able perform rest sets t/s Body Location ES, paraspinals, abdomen Mobilization Type Myofascial Release,Rolling, Sustained Pressure,Other Intensity/Depth Moderate Body Position Sidelying Comments SL scap thoracic then AAROM into rotation support side spinual process T4-8 rotation right with same side rotation, superior abdominals MFR with breath. CS Body Location UT, LS, CS paraspinals, SOR Mobilization Type Myofascial Release,Rolling, Sustained Pressure,Other Intensity/Depth Moderate Body Position Supine Comments x2 pillows for cervical alignment STMs and sustained gentle pressure with MWM head nods/ turns Self-Care/Home Management Treatment Education Patient Education Safety Other Education Education discuss cramping in hands/feet with doctor if depleted in vitamins, mineral. He is tring to include electrolytes to provide sufficient Sodium knowing ususally low. PT-OP-R Modalities Start: 02/12/24 08:02 Freq: Status: Active Protocol: Document 04/28/24 10:40 SAK (Rec: 04/28/24 11:25 SAK [id number]) Hot Pack/Cold Pack Treatment Hot Pack Location c/s, t/s Patient Position Prone Patient Tolerance Good Comments prone pillow PT-OP-T Assessment and Plan Start: 02/12/24 08:02 Freq: Status: Active Protocol: Document 05/07/24 09:03 SP (Rec: 05/07/24 10:03 SP [id number]) Physical Therapy Assessment Goals Four Impairment weakness Short Term Goal (STG) Patient to be instructed in HEP for purposes of strengthening posterior chain musculature 03/18/24: GOAL MET STG Duration GOAL MET Correction Goal (LTG) Patient will be independent and compliant with HEP and demonstrate improvement in strength to at least 4+/5 LTG Duration 05/12/24 Three Impairment postural dysfunction with forward head, rounded shoulders Short Term Goal (STG) Patient to be instructed in neutral postural alignment and importance followed by postural correction activities and exercises and strategies for improved postural alignment statically and with functional activities 03/18/24: GOAL MET STG Duration GOAL MET College President Goal (LTG) Patient to be able to demonstrate good postural awareness and ability to self- correct without cues and be independent and compliant with postural correction exercises and activities LTG Duration 05/12/24 Two Impairment Neck disability index score 40 % Correction Goal (LTG) Decrease NDI to no greater than 20% as measure of improved activity tolerance and function 03/18/24: decreased to 35% LTG Duration 05/12/24 One Impairment neck pain with radicular symptoms Short Term Goal (STG) Decrease pain and radicular symptoms by at least 50% 03/18/24: min decrease in highest level of pain but less frequent, reports exercises help, partially met STG Duration 04/02/24 Correction Goal (LTG) Decrease pain and radicular symptoms by at least 75% with all usual activities LTG Duration 05/12/24 Assessment Summary Assessment Pt improved CS and TS rotation and extension post manual. Physical Therapy Plan Frequency and Duration Frequency of Treatment 2x/Week Duration of treatment (weeks) 12 Plan of Care Start Date 02/12/24 Plan of Care End Date 05/12/24 Therapeutic Interventions Therapeutic Interventions Home Exercise Program,Manual Therapy,Patient/Caregiver Education,Self-Care/Home Management,Soft Tissue Mobilization,Taping, Therapeutic Activities, Therapeutic Exercises Modalities Cold Pack/Ice Massage,Electric Stimulation,Hot Packs, Infrared Therapy,Traction- Mechanical,Ultrasound Next Visit Focus/Plan Next Note Type Progress Note Next Visit Plan Update POC next tx. POC: for postural correction, posterior chain, deep neck flexor strengtheing. Manual t /s and c/s.
--- NOTE | 2024-05-11 15:47 | PT.OTN ---
Current Diagnoses Spondylosis without myelopathy or radiculopathy, cervical region (05/11/24) Radiculopathy, cervical region (05/11/24) Abnormal posture (05/11/24) Weakness (05/11/24) Physical Therapy Treatment Note PT-OP-A Visit Information Start: 02/12/24 08:02 Freq: Status: Active Protocol: Document 05/11/24 09:48 [facility]AK (Rec: 05/11/24 10:33 [facility] [id number]) Out-Patient Physical Therapy Visit Information Visit Information Visit Type Treatment Note Visit Start Time 09:49 Visit Stop Time 10:44 Visit Number 19 (11/19 with PN) Number of AUTOMATIC TRIMMING SEWER Visits 0 Evaluation Information Evaluation Date 02/12/24 Precautions Precautions osteoporosis left hip, osteopenia right hip osteoporosis neck PT-OP-B Current Condition Start: 02/12/24 08:02 Freq: Status: Active Protocol: Document 04/28/24 10:40 SAK (Rec: 04/28/24 11:25 [facility] [id number]) Current Condition History of Current Condition Onset Date chronic since 1989 Current Complaints neck pain, arm and hand numbness, thoracic and lumbar pain History of Current Condition chronic neck pain with radicular symptoms since [place] in the [place]. Initially diagnosed with lateral epicondylitis, didn't look at neck. recent injection which helped a little. Prior injections in lumbar spine very help, no injections thoracic spine. Pain increases with sitting, bending. Has had PT in the past, has been helpful. Difficult to get motivated to do any regular exercise except golfing and walking. Uses heating pad, ice wrap. Also c /o occasional numbness in hands, varies from thumb only to entire hand. Sleeps on side, pillow under neck and head not shoulders. Has foam roller Prior Treatments and Tests Dexa scan neck MRI: stenosis and arthritis prior chiropractor but not recently PT-OP-C Subjective Start: 02/12/24 08:02 Freq: Status: Active Protocol: Document 05/11/24 09:48 SAK (Rec: 05/11/24 10:33 [facility] [id number]) OP-PT Subjective Patient Comments Patient Comments No new c/o. Not as compliant to HEP as needs to be, most compliant to foam roller exercises and working on postural correction with guitar playing. PT-OP-H Neuro Start: 02/12/24 08:02 Freq: Status: Active Protocol: Document 02/12/24 09:46 [facility] (Rec: 02/12/24 16:10 [facility] [id number]) Sensation Evaluation Gross Sensation Sensation Description Paresthesia Dermatome Impairments C5,C6 Comments Summary Comments Patient reports having more difficulty holding onto pic for playing gutwago - teamwork across [employer], thumb often feels numb PT-OP-J Posture/Palpation/Skin Start: 02/12/24 08:02 Freq: Status: Active Protocol: Document 02/12/24 09:46 [facility] (Rec: 02/12/24 16:10 [facility] [id number]) Posture Evaluation Position Standing Head/C-Spine Posture Forward Head T-Spine Posture Increased Kyphosis L-Spine Posture Decreased Lordosis Shoulder Posture (L) Rounded,(R) Rounded Scapula Posture (L) Protracted,(R) Protracted Arm Posture (L) Internally Rotated,(R) Internally Rotated Pelvis Posture Posterior Tilted Comments Posture Comments poor gluteal muscle tone Palpation Assessment Location c/s Palpation Findings Soft Tissue Tightness,Muscle Guarding,Tenderness PT-OP-K Range of Motion Start: 02/12/24 08:02 Freq: Status: Active Protocol: Document 02/12/24 09:46 [facility] (Rec: 02/12/24 16:10 [facility] [id number]) Cervical Spine Range of Motion Cervical Spine Active Flexion 52 Extension 40 Rotation Left 35 Rotation Right 30 Lateral Flexion Left 12 Lateral Flexion Right 44 ROM Limitations Soft Tissue Tightness, Contracture,Pain Shoulder Goniometric Range of Motion Shoulder john Shoulder ROM WFL Yes PT-OP-L Special Tests Start: 02/12/24 08:02 Freq: Status: Active Protocol: Document 02/12/24 09:46 [facility] (Rec: 02/12/24 16:10 [facility] [id number]) Special Tests Cervical Spine Special Tests Traction Test Results + Comments decrease symptoms Foraminal Compression Test Results + Comments increased tightness and pain sensation Upper Limb Tension Test Comments perform next session PT-OP-M Strength Start: 02/12/24 08:02 Freq: Status: Active Protocol: Document 02/12/24 09:46 [facility] (Rec: 02/12/24 16:10 [facility] [id number]) Cervical Spine Strength Cervical Spine Manual Muscle Testing Flexion (C1-2) 4 Good Extension 4 Good Rotation Left 4 Good Rotation Right 4 Good Lateral Flexion Left (C3) 4 Good Lateral Flexion Right (C3) 4 Good Shoulder Strength Shoulder Manual Muscle Testing Left Flexion 4 Good Extension 4 Good Abduction (C5) 4 Good Adduction 4 Good External Rotation 4- Good- Internal Rotation 4 Good Horizontal Abduction 4 Good Horizontal Adduction 4 Good Right Flexion 4 Good Extension 4 Good Abduction (C5) 4 Good Adduction 4 Good External Rotation 4- Good- Internal Rotation 4 Good Elbow/Forearm Strength Elbow and Forearm Manual Muscle Testing john Flexion (C6) 4+ Good+ Extension (C7) 4+ Good+ Pronation 4+ Good+ Supination 4+ Good+ Wrist Strength Wrist Manual Muscle Testing john Flexion (C7) 4 Good Extension (C6) 4- Good- PT-OP-Q Treatments Start: 02/12/24 08:02 Freq: Status: Active Protocol: Document 05/11/24 09:48 [facility] (Rec: 05/11/24 10:33 [facility] [id number]) Cardio Equipment Upper Body Ergometer (UBE) Duration (Minutes) 8 RPM 55 Seat Position 11 Height 3 Other 2 min fwd, 4 min bckd, cues for neutral c/s. Towel roll vertical at t/s Gym Equipment Cable Column (Body Solid) lat pull Details cues for scapular activation/ depression Resistance 3 plates (seated) Reps/Time 15x2 to chest (over hand regulator mechanic/ shld width), 10x scap only row Details cues for scapular activation, postural alignment crack walnut Resistance 2 plates (seated)- rope handles Reps/Time 10x2, 10x scap only Therapeutic Exercises Supine Exercises c/s rotation Equipment Used neck pillow Reps/Minutes 10x Sidelying Exercises open book Sidelying Exercise Name post manual Side bilateral Reps/Minutes 8 reps post manual, 2 breathes end feel Comments Improved ribcage & TS rotation mobility Sitting Exercises SNAGS Sitting Exercise Name Ext and Rotation Side bilateral Resistance AAROM stretch (home turns resist into band) Equipment Used pillow case (uses heavy reistance band home) Reps/Minutes 2 reps each stretch Comments good response stretch Manual Therapy Treatment Soft Tissue Mobilization t/s Body Location ES, paraspinals Mobilization Type Myofascial Release,Rolling, Sustained Pressure,Other Intensity/Depth Moderate Body Position Prone Comments .prone over prone pillow, pillow rectangle roll under legs, detachable face cradle cushion under face. -STMs and Caudal ribcage TS>LS with exhale - verbal review self STMs use ball wall in pillowcase and regularly uses foam roller TS ext and rolling. [ End ] CS Body Location UT, LS, CS paraspinals, SOR Mobilization Type Myofascial Release,Rolling, Sustained Pressure,Other Intensity/Depth Moderate Body Position Supine Comments x2 pillows for cervical alignment STMs and sustained gentle pressure with MWM head nods/ turns Self-Care/Home Management Treatment Education Patient Education Body Mechanics,Home Exercise Program,Pain Management, Posture PT-OP-R Modalities Start: 02/12/24 08:02 Freq: Status: Active Protocol: Document 05/11/24 09:48 [facility]AK (Rec: 05/11/24 10:33 [facility] [id number]) Hot Pack/Cold Pack Treatment Hot Pack Location c/s, t/s Patient Position Prone Patient Tolerance Good Comments prone pillow PT-OP-T Assessment and Plan Start: 02/12/24 08:02 Freq: Status: Active Protocol: Document 05/11/24 09:48 [facility]AK (Rec: 05/11/24 10:33 [facility] [id number]) Physical Therapy Assessment Goals Four Impairment weakness Short Term Goal (STG) Patient to be instructed in HEP for purposes of strengthening posterior chain musculature 03/18/24: GOAL MET STG Duration GOAL MET Care Home Goal (LTG) Patient will be independent and compliant with HEP and demonstrate improvement in strength to at least 4+/5 05/11/24: mostly met, though rhomboids 4/5, lower trap 3+/5 LTG Duration 06/10/24 Three Impairment postural dysfunction with forward head, rounded shoulders Short Term Goal (STG) Patient to be instructed in neutral postural alignment and importance followed by postural correction activities and exercises and strategies for improved postural alignment statically and with functional activities 03/18/24: GOAL MET STG Duration GOAL MET Care Home Goal (LTG) Patient to be able to demonstrate good postural awareness and ability to self- correct without cues and be independent and compliant with postural correction exercises and activities 05/11/24:good goal progress LTG Duration 06/10/24 Two Impairment Neck disability index score 40 % Care Home Goal (LTG) Decrease NDI to no greater than 20% as measure of improved activity tolerance and function 03/18/24: decreased to 35% 05/11/24: LTG Duration 06/10/24 One Impairment neck pain with radicular symptoms Short Term Goal (STG) Decrease pain and radicular symptoms by at least 50% 03/18/24: min decrease in highest level of pain but less frequent, reports exercises help, partially met 05/11/24: goal partially met STG Duration goal partially met Head Banquet Waiter/Waitress Goal (LTG) Decrease pain and radicular symptoms by at least 75% with all usual activities LTG Duration 06/10/24 Progress Towards Goals Progress Towards Goals Progressing Toward Goals Assessment Summary Assessment Patient reporting decrease in pain, and improved mobility after PT. Using foam roller daily, fair compliance to other HEP. Recomend 2-3 futher PT visits then discharge to independent HEP and self management. Physical Therapy Plan Frequency and Duration Frequency of Treatment 1x/Week Duration of treatment (weeks) 4 Plan of Care Start Date 05/11/24 Plan of Care End Date 06/10/24 Therapeutic Interventions Therapeutic Interventions Home Exercise Program,Manual Therapy,Patient/Caregiver Education,Self-Care/Home Management,Soft Tissue Mobilization,Taping, Therapeutic Activities, Therapeutic Exercises Modalities Cold Pack/Ice Massage,Electric Stimulation,Hot Packs, Infrared Therapy,Traction- Mechanical,Ultrasound Next Visit Focus/Plan Next Note Type Progress Note Next Visit Plan PT for postural correction, posterior chain and deep neck flexor strengthening. Manual therapy and modalities PRN.
--- NOTE | 2024-05-11 15:50 | PT.OTRE ---
Current Diagnoses Spondylosis without myelopathy or radiculopathy, cervical region (05/11/24) Radiculopathy, cervical region (05/11/24) Abnormal posture (05/11/24) Weakness (05/11/24) Past Medical History (Last Reviewed 03/29/24 @ 09:48 by Nelson Munoz DO) Alcoholism Bilateral hand pain BPH w urinary obs/LUTS CAD (coronary artery disease) Cervical radiculopathy Chicken pox (1966) Chronic hand pain Chronic neck pain (1999) Degenerative joint disease of both hips Erectile dysfunction Facet arthropathy, cervical Facet arthropathy, lumbar Heart attack (2008) Hematuria Herniated nucleus pulposus, L4-5 Incomplete bladder emptying Measles (~1969) Rheumatoid arthritis Shoulder pain Trigger finger, right little finger (04/2020) UTI (urinary tract infection) Surgical History (Last Reviewed 03/29/24 @ 09:48 by Nelson Munoz DO) Anesthesia History of heart artery stent (2008) Hx of CABG Status post rotator cuff repair Visit Care Team Role Provider Type Pedro Mcbride MD Family Provider Physician Primary Care Provider Specialty: Family Practice Address: [address] [place] [address] Email: [email or web address] Nelson Munoz DO Attending Provider Physician Referring Provider Specialty: Interventional Radiology Physiatry Pain Management Address: [address] [place] [address], [facility] Email: [email or web address] Physical Therapy Re-Evaluation PT-OP-A Visit Information Start: 02/12/24 08:02 Freq: Status: Active Protocol: Document 05/11/24 09:48 [facility]AK (Rec: 05/11/24 10:33 [facility] [id number]) Out-Patient Physical Therapy Visit Information Visit Information Visit Type Treatment Note Visit Start Time 09:49 Visit Stop Time 10:44 Visit Number 19 (11/19 with PN) Number of COUNTY ADMINISTRATOR Visits 0 Evaluation Information Evaluation Date 02/12/24 Precautions Precautions osteoporosis left hip, osteopenia right hip osteoporosis neck PT-OP-B Current Condition Start: 02/12/24 08:02 Freq: Status: Active Protocol: Document 04/28/24 10:40 [facility]AK (Rec: 04/28/24 11:25 [facility] [id number]) Current Condition History of Current Condition Onset Date chronic since 1989 Current Complaints neck pain, arm and hand numbness, thoracic and lumbar pain History of Current Condition chronic neck pain with radicular symptoms since [place] Initially diagnosed with lateral epicondylitis, didn't look at neck. recent injection which helped a little. Prior injections in lumbar spine very help, no injections thoracic spine. Pain increases with sitting, bending. Has had PT in the past, has been helpful. Difficult to get motivated to do any regular exercise except golfing and walking. Uses heating pad, ice wrap. Also c /o occasional numbness in hands, varies from thumb only to entire hand. Sleeps on side, pillow under neck and head not shoulders. Has foam roller Prior Treatments and Tests Dexa scan neck MRI: stenosis and arthritis prior chiropractor but not recently PT-OP-C Subjective Start: 02/12/24 08:02 Freq: Status: Active Protocol: Document 05/11/24 09:48 [facility] (Rec: 05/11/24 10:33 [facility] [id number]) OP-PT Subjective Patient Comments Patient Comments No new c/o. Not as compliant to HEP as needs to be, most compliant to foam roller exercises and working on postural correction with guitar playing. PT-OP-H Neuro Start: 02/12/24 08:02 Freq: Status: Active Protocol: Document 02/12/24 09:46 [facility] (Rec: 02/12/24 16:10 [facility] [id number]) Sensation Evaluation Gross Sensation Sensation Description Paresthesia Dermatome Impairments C5,C6 Comments Summary Comments Patient reports having more difficulty holding onto pic for playing guitar, thumb often feels numb PT-OP-J Posture/Palpation/Skin Start: 02/12/24 08:02 Freq: Status: Active Protocol: Document 02/12/24 09:46 [facility] (Rec: 02/12/24 16:10 [facility] [id number]) Posture Evaluation Position Standing Head/C-Spine Posture Forward Head T-Spine Posture Increased Kyphosis L-Spine Posture Decreased Lordosis Shoulder Posture (L) Rounded,(R) Rounded Scapula Posture (L) Protracted,(R) Protracted Arm Posture (L) Internally Rotated,(R) Internally Rotated Pelvis Posture Posterior Tilted Comments Posture Comments poor gluteal muscle tone Palpation Assessment Location c/s Palpation Findings Soft Tissue Tightness,Muscle Guarding,Tenderness PT-OP-K Range of Motion Start: 02/12/24 08:02 Freq: Status: Active Protocol: Document 02/12/24 09:46 [facility] (Rec: 02/12/24 16:10 [facility] [id number]) Cervical Spine Range of Motion Cervical Spine Active Flexion 52 Extension 40 Rotation Left 35 Rotation Right 30 Lateral Flexion Left 12 Lateral Flexion Right 44 ROM Limitations Soft Tissue Tightness, Contracture,Pain Shoulder Goniometric Range of Motion Shoulder Measured in Degrees john Shoulder ROM WFL Yes PT-OP-L Special Tests Start: 02/12/24 08:02 Freq: Status: Active Protocol: Document 02/12/24 09:46 [facility] (Rec: 02/12/24 16:10 [facility] [id number]) Special Tests Cervical Spine Special Tests Traction Test Results + Comments decrease symptoms Foraminal Compression Test Results + Comments increased tightness and pain sensation Upper Limb Tension Test Comments perform next session PT-OP-M Strength Start: 02/12/24 08:02 Freq: Status: Active Protocol: Document 02/12/24 09:46 [facility] (Rec: 02/12/24 16:10 [facility] [id number]) Cervical Spine Strength Cervical Spine Manual Muscle Testing Flexion (C1-2) 4 Good Extension 4 Good Rotation Left 4 Good Rotation Right 4 Good Lateral Flexion Left (C3) 4 Good Lateral Flexion Right (C3) 4 Good Shoulder Strength Shoulder Manual Muscle Testing Left Flexion 4 Good Extension 4 Good Abduction (C5) 4 Good Adduction 4 Good External Rotation 4- Good- Internal Rotation 4 Good Horizontal Abduction 4 Good Horizontal Adduction 4 Good Right Flexion 4 Good Extension 4 Good Abduction (C5) 4 Good Adduction 4 Good External Rotation 4- Good- Internal Rotation 4 Good Elbow/Forearm Strength Elbow and Forearm Manual Muscle Testing john Flexion (C6) 4+ Good+ Extension (C7) 4+ Good+ Pronation 4+ Good+ Supination 4+ Good+ Wrist Strength Wrist Manual Muscle Testing john Flexion (C7) 4 Good Extension (C6) 4- Good- PT-OP-Q Treatments Start: 02/12/24 08:02 Freq: Status: Active Protocol: Document 05/11/24 09:48 [facility] (Rec: 05/11/24 10:33 [facility] [id number]) Cardio Equipment Upper Body Ergometer (UBE) Duration (Minutes) 8 RPM 55 Seat Position 11 Height 3 Other 2 min fwd, 4 min bckd, cues for neutral c/s. Towel roll vertical at t/s Gym Equipment Cable Column (Body Solid) lat pull Details cues for scapular activation/ depression Resistance 3 plates (seated) Reps/Time 15x2 to chest (over hand brake operator helper/ shld width), 10x scap only row Details cues for scapular activation, postural alignment crack walnut Resistance 2 plates (seated)- rope handles Reps/Time 10x2, 10x scap only Therapeutic Exercises Supine Exercises c/s rotation Equipment Used neck pillow Reps/Minutes 10x Sidelying Exercises open book Sidelying Exercise Name post manual Side bilateral Reps/Minutes 8 reps post manual, 2 breathes end feel Comments Improved ribcage & TS rotation mobility Sitting Exercises SNAGS Sitting Exercise Name Ext and Rotation Side bilateral Resistance AAROM stretch (home turns resist into band) Equipment Used pillow case (uses heavy reistance band home) Reps/Minutes 2 reps each stretch Comments good response stretch Manual Therapy Treatment Soft Tissue Mobilization t/s Body Location ES, paraspinals Mobilization Type Myofascial Release,Rolling, Sustained Pressure,Other Intensity/Depth Moderate Body Position Prone Comments .prone over prone pillow, pillow rectangle roll under legs, detachable face cradle cushion under face. -STMs and Caudal ribcage TS>LS with exhale - verbal review self STMs use ball wall in pillowcase and regularly uses foam roller TS ext and rolling. [ End ] CS Body Location UT, LS, CS paraspinals, SOR Mobilization Type Myofascial Release,Rolling, Sustained Pressure,Other Intensity/Depth Moderate Body Position Supine Comments x2 pillows for cervical alignment STMs and sustained gentle pressure with MWM head nods/ turns Self-Care/Home Management Treatment Education Patient Education Body Mechanics,Home Exercise Program,Pain Management, Posture PT-OP-R Modalities Start: 02/12/24 08:02 Freq: Status: Active Protocol: Document 05/11/24 09:48 [facility] (Rec: 05/11/24 10:33 [facility] [id number]) Hot Pack/Cold Pack Treatment Hot Pack Location c/s, t/s Patient Position Prone Patient Tolerance Good Comments prone pillow PT-OP-T Assessment and Plan Start: 02/12/24 08:02 Freq: Status: Active Protocol: Document 05/11/24 09:48 [facility] (Rec: 05/11/24 10:33 [facility] [id number]) Physical Therapy Assessment Goals Four Impairment weakness Short Term Goal (STG) Patient to be instructed in HEP for purposes of strengthening posterior chain musculature 03/18/24: GOAL MET STG Duration GOAL MET Fpc Goal (LTG) Patient will be independent and compliant with HEP and demonstrate improvement in strength to at least 4+/5 05/11/24: mostly met, though rhomboids 4/5, lower trap 3+/5 LTG Duration 06/10/24 Three Impairment postural dysfunction with forward head, rounded shoulders Short Term Goal (STG) Patient to be instructed in neutral postural alignment and importance followed by postural correction activities and exercises and strategies for improved postural alignment statically and with functional activities 03/18/24: GOAL MET STG Duration GOAL MET Fpc Goal (LTG) Patient to be able to demonstrate good postural awareness and ability to self- correct without cues and be independent and compliant with postural correction exercises and activities 05/11/24:good goal progress LTG Duration 06/10/24 Two Impairment Neck disability index score 40 % Fpc Goal (LTG) Decrease NDI to no greater than 20% as measure of improved activity tolerance and function 03/18/24: decreased to 35% 05/11/24: LTG Duration 06/10/24 One Impairment neck pain with radicular symptoms Short Term Goal (STG) Decrease pain and radicular symptoms by at least 50% 03/18/24: min decrease in highest level of pain but less frequent, reports exercises help, partially met 05/11/24: goal partially met STG Duration goal partially met Fpc Goal (LTG) Decrease pain and radicular symptoms by at least 75% with all usual activities LTG Duration 06/10/24 Progress Towards Goals Progress Towards Goals Progressing Toward Goals Assessment Summary Assessment Patient reporting decrease in pain, and improved mobility after PT. Using foam roller daily, fair compliance to other HEP. Recomend 2-3 futher PT visits then discharge to independent HEP and self management. Physical Therapy Plan Frequency and Duration Frequency of Treatment 1x/Week Duration of treatment (weeks) 4 Plan of Care Start Date 05/11/24 Plan of Care End Date 06/10/24 Therapeutic Interventions Therapeutic Interventions Home Exercise Program,Manual Therapy,Patient/Caregiver Education,Self-Care/Home Management,Soft Tissue Mobilization,Taping, Therapeutic Activities, Therapeutic Exercises Modalities Cold Pack/Ice Massage,Electric Stimulation,Hot Packs, Infrared Therapy,Traction- Mechanical,Ultrasound Next Visit Focus/Plan Next Note Type Progress Note Next Visit Plan PT for postural correction, posterior chain and deep neck flexor strengthening. Manual therapy and modalities PRN.
--- NOTE | 2024-05-11 15:50 | PT.OPPOC ---
Physical, Occupational & Speech Therapy At [facility] Current Diagnoses Spondylosis without myelopathy or radiculopathy, cervical region (05/11/24) Radiculopathy, cervical region (05/11/24) Abnormal posture (05/11/24) Weakness (05/11/24) Visit Care Team Role Provider Type Pedro Mcbride MD Family Provider Physician Primary Care Provider Specialty: Family Practice Address: [address] [place] [address], [id number] Email: [email or web address] Nelson Munoz DO Attending Provider Physician Referring Provider Specialty: Interventional Radiology Physiatry Pain Management Address: [facility] [place], [address] Email: 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 Initially diagnosed with lateral epicondylitis, didn't look at neck. recent injection which helped a little. Prior injections in lumbar spine very help, no injections thoracic spine. Pain increases with sitting, bending. Has had PT in the past, has been helpful. Difficult to get motivated to do any regular exercise except golfing and walking. Uses heating pad, ice wrap. Also c /o occasional numbness in hands, varies from thumb only to entire hand. Sleeps on side, pillow under neck and head not shoulders. Has foam roller Prior Treatments and Tests Dexa scan neck MRI: stenosis and arthritis prior chiropractor but not recently PT-OP-T Assessment and Plan Start: 02/12/24 08:02 Freq: Status: Active Protocol: Document 05/11/24 09:48 SAK (Rec: 05/11/24 10:33 SAK [id number]) Physical Therapy Assessment Goals Four Impairment weakness Short Term Goal (STG) Patient to be instructed in HEP for purposes of strengthening posterior chain musculature 03/18/24: GOAL MET STG Duration GOAL MET Half-Way Goal (LTG) Patient will be independent and compliant with HEP and demonstrate improvement in strength to at least 4+/5 05/11/24: mostly met, though rhomboids 4/5, lower trap 3+/5 LTG Duration 06/10/24 Three Impairment postural dysfunction with forward head, rounded shoulders Short Term Goal (STG) Patient to be instructed in neutral postural alignment and importance followed by postural correction activities and exercises and strategies for improved postural alignment statically and with functional activities 03/18/24: GOAL MET STG Duration GOAL MET Nuclear Technician Goal (LTG) Patient to be able to demonstrate good postural awareness and ability to self- correct without cues and be independent and compliant with postural correction exercises and activities 05/11/24:good goal progress LTG Duration 06/10/24 Two Impairment Neck disability index score 40 % Nuclear Technician Goal (LTG) Decrease NDI to no greater than 20% as measure of improved activity tolerance and function 03/18/24: decreased to 35% 05/11/24: LTG Duration 06/10/24 One Impairment neck pain with radicular symptoms Short Term Goal (STG) Decrease pain and radicular symptoms by at least 50% 03/18/24: min decrease in highest level of pain but less frequent, reports exercises help, partially met 05/11/24: goal partially met STG Duration goal partially met Nuclear Technician Goal (LTG) Decrease pain and radicular symptoms by at least 75% with all usual activities LTG Duration 06/10/24 Progress Towards Goals Progress Towards Goals Progressing Toward Goals Assessment Summary Assessment Patient reporting decrease in pain, and improved mobility after PT. Using foam roller daily, fair compliance to other HEP. Recomend 2-3 futher PT visits then discharge to independent HEP and self management. Physical Therapy Plan Frequency and Duration Frequency of Treatment 1x/Week Duration of treatment (weeks) 4 Plan of Care Start Date 05/11/24 Plan of Care End Date 06/10/24 Therapeutic Interventions Therapeutic Interventions Home Exercise Program,Manual Therapy,Patient/Caregiver Education,Self-Care/Home Management,Soft Tissue Mobilization,Taping, Therapeutic Activities, Therapeutic Exercises Modalities Cold Pack/Ice Massage,Electric Stimulation,Hot Packs, Infrared Therapy,Traction- Mechanical,Ultrasound Next Visit Focus/Plan Next Note Type Progress Note Next Visit Plan PT for postural correction, posterior chain and deep neck flexor strengthening. Manual therapy and modalities PRN. Plan of Care Dates Plan of Care Start Date 05/11/24 Plan of Care End Date 06/10/24 Electronically Signed by: Emma Sidhu, PT 05/13/24 3654 If you are in agreement with this Plan of Care, please return a signed and dated copy. I have reviewed this Plan of Care and certify that the skilled therapy services above are required to meet the patient?s needs. Physician Signature Date Printed Name and Credentials Clinical Instructor Signature Printed Name and Credentials
--- NOTE | 2024-05-13 15:49 | PT.OTRE ---
Current Diagnoses Spondylosis without myelopathy or radiculopathy, cervical region (05/11/24) Radiculopathy, cervical region (05/11/24) Abnormal posture (05/11/24) Weakness (05/11/24) Past Medical History (Last Reviewed 03/29/24 @ 09:48 by Nelson Munoz DO) Alcoholism Bilateral hand pain BPH w urinary obs/LUTS CAD (coronary artery disease) Cervical radiculopathy Chicken pox (1966) Chronic hand pain Chronic neck pain (1999) Degenerative joint disease of both hips Erectile dysfunction Facet arthropathy, cervical Facet arthropathy, lumbar Heart attack (2008) Hematuria Herniated nucleus pulposus, L4-5 Incomplete bladder emptying Measles (~1969) Rheumatoid arthritis Shoulder pain Trigger finger, right little finger (04/2020) UTI (urinary tract infection) Surgical History (Last Reviewed 03/29/24 @ 09:48 by Nelson Munoz DO) Anesthesia History of heart artery stent (2008) Hx of CABG Status post rotator cuff repair Visit Care Team Role Provider Type Pedro Mcbride MD Family Provider Physician Primary Care Provider Specialty: Family Practice Address: [address] [place] [address] Email: [email or web address] Nelson Munoz DO Attending Provider Physician Referring Provider Specialty: Interventional Radiology Physiatry Pain Management Address: [address] [place] [address], [facility] Email: [email or web address] Physical Therapy Re-Evaluation PT-OP-A Visit Information Start: 02/12/24 08:02 Freq: Status: Active Protocol: Document 05/11/24 09:48 SAK (Rec: 05/11/24 10:33 SAK [id number]) Out-Patient Physical Therapy Visit Information Visit Information Visit Type Treatment Note Visit Start Time 09:49 Visit Stop Time 10:44 Visit Number 19 (11/19 with PN) 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 Initially diagnosed with lateral epicondylitis, didn't look at neck. recent injection which helped a little. Prior injections in lumbar spine very help, no injections thoracic spine. Pain increases with sitting, bending. Has had PT in the past, has been helpful. Difficult to get motivated to do any regular exercise except golfing and walking. Uses heating pad, ice wrap. Also c /o occasional numbness in hands, varies from thumb only to entire hand. Sleeps on side, pillow under neck and head not shoulders. Has foam roller Prior Treatments and Tests Dexa scan neck MRI: stenosis and arthritis prior chiropractor but not recently PT-OP-C Subjective Start: 02/12/24 08:02 Freq: Status: Active Protocol: Document 05/11/24 09:48 [facility] (Rec: 05/11/24 10:33 [facility] [id number]) OP-PT Subjective Patient Comments Patient Comments No new c/o. Not as compliant to HEP as needs to be, most compliant to foam roller exercises and working on postural correction with guitar playing. PT-OP-H Neuro Start: 02/12/24 08:02 Freq: Status: Active Protocol: Document 02/12/24 09:46 [facility] (Rec: 02/12/24 16:10 [facility] [id number]) Sensation Evaluation Gross Sensation Sensation Description Paresthesia Dermatome Impairments C5,C6 Comments Summary Comments Patient reports having more difficulty holding onto pic for playing guitar, thumb often feels numb PT-OP-J Posture/Palpation/Skin Start: 02/12/24 08:02 Freq: Status: Active Protocol: Document 02/12/24 09:46 SAK (Rec: 02/12/24 16:10 [facility] [id number]) Posture Evaluation Position Standing Head/C-Spine Posture Forward Head T-Spine Posture Increased Kyphosis L-Spine Posture Decreased Lordosis Shoulder Posture (L) Rounded,(R) Rounded Scapula Posture (L) Protracted,(R) Protracted Arm Posture (L) Internally Rotated,(R) Internally Rotated Pelvis Posture Posterior Tilted Comments Posture Comments poor gluteal muscle tone Palpation Assessment Location c/s Palpation Findings Soft Tissue Tightness,Muscle Guarding,Tenderness PT-OP-K Range of Motion Start: 02/12/24 08:02 Freq: Status: Active Protocol: Document 02/12/24 09:46 [facility] (Rec: 02/12/24 16:10 [facility] [id number]) Cervical Spine Range of Motion Cervical Spine Active Flexion 52 Extension 40 Rotation Left 35 Rotation Right 30 Lateral Flexion Left 12 Lateral Flexion Right 44 ROM Limitations Soft Tissue Tightness, Contracture,Pain Shoulder Goniometric Range of Motion Shoulder Measured in Degrees john Shoulder ROM WFL Yes PT-OP-L Special Tests Start: 02/12/24 08:02 Freq: Status: Active Protocol: Document 02/12/24 09:46 [facility] (Rec: 02/12/24 16:10 [facility] [id number]) Special Tests Cervical Spine Special Tests Traction Test Results + Comments decrease symptoms Foraminal Compression Test Results + Comments increased tightness and pain sensation Upper Limb Tension Test Comments perform next session PT-OP-M Strength Start: 02/12/24 08:02 Freq: Status: Active Protocol: Document 02/12/24 09:46 [facility] (Rec: 02/12/24 16:10 [facility] [id number]) Cervical Spine Strength Cervical Spine Manual Muscle Testing Flexion (C1-2) 4 Good Extension 4 Good Rotation Left 4 Good Rotation Right 4 Good Lateral Flexion Left (C3) 4 Good Lateral Flexion Right (C3) 4 Good Shoulder Strength Shoulder Manual Muscle Testing Left Flexion 4 Good Extension 4 Good Abduction (C5) 4 Good Adduction 4 Good External Rotation 4- Good- Internal Rotation 4 Good Horizontal Abduction 4 Good Horizontal Adduction 4 Good Right Flexion 4 Good Extension 4 Good Abduction (C5) 4 Good Adduction 4 Good External Rotation 4- Good- Internal Rotation 4 Good Elbow/Forearm Strength Elbow and Forearm Manual Muscle Testing john Flexion (C6) 4+ Good+ Extension (C7) 4+ Good+ Pronation 4+ Good+ Supination 4+ Good+ Wrist Strength Wrist Manual Muscle Testing john Flexion (C7) 4 Good Extension (C6) 4- Good- PT-OP-Q Treatments Start: 02/12/24 08:02 Freq: Status: Active Protocol: Document 05/11/24 09:48 [facility] (Rec: 05/11/24 10:33 [facility] [id number]) Cardio Equipment Upper Body Ergometer (UBE) Duration (Minutes) 8 RPM 55 Seat Position 11 Height 3 Other 2 min fwd, 4 min bckd, cues for neutral c/s. 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/ shld width), 10x scap only row Details cues for scapular activation, postural alignment crack walnut Resistance 2 plates (seated)- rope handles Reps/Time 10x2, 10x scap only Therapeutic Exercises Supine Exercises c/s rotation Equipment Used neck pillow Reps/Minutes 10x Sidelying Exercises open book Sidelying Exercise Name post manual Side bilateral Reps/Minutes 8 reps post manual, 2 breathes end feel Comments Improved ribcage & TS rotation mobility Sitting Exercises SNAGS Sitting Exercise Name Ext and Rotation Side bilateral Resistance AAROM stretch (home turns resist into band) Equipment Used pillow case (uses heavy reistance band home) Reps/Minutes 2 reps each stretch Comments good response stretch Manual Therapy Treatment Soft Tissue Mobilization t/s Body Location ES, paraspinals Mobilization Type Myofascial Release,Rolling, Sustained Pressure,Other Intensity/Depth Moderate Body Position Prone Comments .prone over prone pillow, pillow rectangle roll under legs, detachable face cradle cushion under face. -STMs and Caudal ribcage TS>LS with exhale - verbal review self STMs use ball wall in pillowcase and regularly uses foam roller TS ext and rolling. [ End ] CS Body Location UT, LS, CS paraspinals, SOR Mobilization Type Myofascial Release,Rolling, Sustained Pressure,Other Intensity/Depth Moderate Body Position Supine Comments x2 pillows for cervical alignment STMs and sustained gentle pressure with MWM head nods/ turns Self-Care/Home Management Treatment Education Patient Education Body Mechanics,Home Exercise Program,Pain Management, Posture PT-OP-R Modalities Start: 02/12/24 08:02 Freq: Status: Active Protocol: Document 05/11/24 09:48 [facility] (Rec: 05/11/24 10:33 [facility] [id number]) Hot Pack/Cold Pack Treatment Hot Pack Location c/s, t/s Patient Position Prone Patient Tolerance Good Comments prone pillow PT-OP-T Assessment and Plan Start: 02/12/24 08:02 Freq: Status: Active Protocol: Document 05/11/24 09:48 [facility]IR[facility] (Rec: 05/11/24 10:33 [facility] [id number]) Physical Therapy Assessment Goals Four Impairment weakness Short Term Goal (STG) Patient to be instructed in HEP for purposes of strengthening posterior chain musculature 03/18/24: GOAL MET STG Duration GOAL MET Mcfp Goal (LTG) Patient will be independent and compliant with HEP and demonstrate improvement in strength to at least 4+/5 05/11/24: mostly met, though rhomboids 4/5, lower trap 3+/5 LTG Duration 06/10/24 Three Impairment postural dysfunction with forward head, rounded shoulders Short Term Goal (STG) Patient to be instructed in neutral postural alignment and importance followed by postural correction activities and exercises and strategies for improved postural alignment statically and with functional activities 03/18/24: GOAL MET STG Duration GOAL MET Mcfp Goal (LTG) Patient to be able to demonstrate good postural awareness and ability to self- correct without cues and be independent and compliant with postural correction exercises and activities 05/11/24:good goal progress LTG Duration 06/10/24 Two Impairment Neck disability index score 40 % Mcfp Goal (LTG) Decrease NDI to no greater than 20% as measure of improved activity tolerance and function 03/18/24: decreased to 35% 05/11/24: LTG Duration 06/10/24 One Impairment neck pain with radicular symptoms Short Term Goal (STG) Decrease pain and radicular symptoms by at least 50% 03/18/24: min decrease in highest level of pain but less frequent, reports exercises help, partially met 05/11/24: goal partially met STG Duration goal partially met Mcfp Goal (LTG) Decrease pain and radicular symptoms by at least 75% with all usual activities LTG Duration 06/10/24 Progress Towards Goals Progress Towards Goals Progressing Toward Goals Assessment Summary Assessment Patient reporting decrease in pain, and improved mobility after PT. Using foam roller daily, fair compliance to other HEP. Recomend 2-3 futher PT visits then discharge to independent HEP and self management. Physical Therapy Plan Frequency and Duration Frequency of Treatment 1x/Week Duration of treatment (weeks) 4 Plan of Care Start Date 05/11/24 Plan of Care End Date 06/10/24 Therapeutic Interventions Therapeutic Interventions Home Exercise Program,Manual Therapy,Patient/Caregiver Education,Self-Care/Home Management,Soft Tissue Mobilization,Taping, Therapeutic Activities, Therapeutic Exercises Modalities Cold Pack/Ice Massage,Electric Stimulation,Hot Packs, Infrared Therapy,Traction- Mechanical,Ultrasound Next Visit Focus/Plan Next Note Type Progress Note Next Visit Plan PT for postural correction, posterior chain and deep neck flexor strengthening. Manual therapy and modalities PRN.
--- NOTE | 2024-05-19 16:10 | PT.OTN ---
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 Initially diagnosed with lateral epicondylitis, didn't look at neck. recent injection which helped a little. Prior injections in lumbar spine very help, no injections thoracic spine. Pain increases with sitting, bending. Has had PT in the past, has been helpful. Difficult to get motivated to do any regular exercise except golfing and walking. Uses heating pad, ice wrap. Also c /o occasional numbness in hands, varies from thumb only to entire hand. Sleeps on side, pillow under neck and head not shoulders. Has foam roller Prior Treatments and Tests Dexa scan neck MRI: stenosis and arthritis prior chiropractor but not recently PT-OP-C Subjective Start: 02/12/24 08:02 Freq: Status: Active Protocol: Document 05/19/24 14:32 [facility]AK (Rec: 05/19/24 15:16 SAK Laptop) OP-PT Subjective Patient Comments Patient Comments Feels numbness left greater than right fingertips, most frequent with playing guitar, hard to keep track of guitar pick. Had company, didn't do as many exercises and was also playing guitar more. PT-OP-H Neuro Start: 02/12/24 08:02 Freq: Status: Active Protocol: Document 02/12/24 09:46 [facility] (Rec: 02/12/24 16:10 [facility] [id number]) Sensation Evaluation Gross Sensation Sensation Description Paresthesia Dermatome Impairments C5,C6 Comments Summary Comments Patient reports having more difficulty holding onto pic for playing [email or web address], thumb often feels numb PT-OP-J Posture/Palpation/Skin Start: 02/12/24 08:02 Freq: Status: Active Protocol: Document 02/12/24 09:46 [facility] (Rec: 02/12/24 16:10 [facility] [id number]) Posture Evaluation Position Standing Head/C-Spine Posture Forward Head T-Spine Posture Increased Kyphosis L-Spine Posture Decreased Lordosis Shoulder Posture (L) Rounded,(R) Rounded Scapula Posture (L) Protracted,(R) Protracted Arm Posture (L) Internally Rotated,(R) Internally Rotated Pelvis Posture Posterior Tilted Comments Posture Comments poor gluteal muscle tone Palpation Assessment Location c/s Palpation Findings Soft Tissue Tightness,Muscle Guarding,Tenderness PT-OP-K Range of Motion Start: 02/12/24 08:02 Freq: Status: Active Protocol: Document 02/12/24 09:46 [facility] (Rec: 02/12/24 16:10 [facility] [id number]) Cervical Spine Range of Motion Cervical Spine Active Flexion 52 Extension 40 Rotation Left 35 Rotation Right 30 Lateral Flexion Left 12 Lateral Flexion Right 44 ROM Limitations Soft Tissue Tightness, Contracture,Pain Shoulder Goniometric Range of Motion Shoulder john Shoulder ROM WFL Yes PT-OP-L Special Tests Start: 02/12/24 08:02 Freq: Status: Active Protocol: Document 02/12/24 09:46 [facility] (Rec: 02/12/24 16:10 [facility] [id number]) Special Tests Cervical Spine Special Tests Traction Test Results + Comments decrease symptoms Foraminal Compression Test Results + Comments increased tightness and pain sensation Upper Limb Tension Test Comments perform next session PT-OP-M Strength Start: 02/12/24 08:02 Freq: Status: Active Protocol: Document 02/12/24 09:46 [facility] (Rec: 02/12/24 16:10 [facility] [id number]) Cervical Spine Strength Cervical Spine Manual Muscle Testing Flexion (C1-2) 4 Good Extension 4 Good Rotation Left 4 Good Rotation Right 4 Good Lateral Flexion Left (C3) 4 Good Lateral Flexion Right (C3) 4 Good Shoulder Strength Shoulder Manual Muscle Testing Left Flexion 4 Good Extension 4 Good Abduction (C5) 4 Good Adduction 4 Good External Rotation 4- Good- Internal Rotation 4 Good Horizontal Abduction 4 Good Horizontal Adduction 4 Good Right Flexion 4 Good Extension 4 Good Abduction (C5) 4 Good Adduction 4 Good External Rotation 4- Good- Internal Rotation 4 Good Elbow/Forearm Strength Elbow and Forearm Manual Muscle Testing john Flexion (C6) 4+ Good+ Extension (C7) 4+ Good+ Pronation 4+ Good+ Supination 4+ Good+ Wrist Strength Wrist Manual Muscle Testing john Flexion (C7) 4 Good Extension (C6) 4- Good- PT-OP-Q Treatments Start: 02/12/24 08:02 Freq: Status: Active Protocol: Document 05/19/24 14:32 [facility] (Rec: 05/19/24 16:10 [facility] Laptop) Manual Therapy Treatment Soft Tissue Mobilization CS Body Location UT, LS, CS paraspinals, SOR Mobilization Type Myofascial Release,Rolling, Sustained Pressure,Other Intensity/Depth Moderate Body Position Supine Comments x2 pillows for cervical alignment STMs and sustained gentle pressure with MWM head nods/ turns Self-Care/Home Management Treatment Education Patient Education Body Mechanics,Home Exercise Program,Pain Management, Posture PT-OP-R Modalities Start: 02/12/24 08:02 Freq: Status: Active Protocol: Document 05/19/24 14:32 [facility] (Rec: 05/19/24 16:10 [facility] Laptop) Hot Pack/Cold Pack Treatment Hot Pack Location c/s, t/s Patient Position Hooklying Patient Tolerance Good PT-OP-T Assessment and Plan Start: 02/12/24 08:02 Freq: Status: Active Protocol: Document 05/19/24 14:32 [facility] (Rec: 05/19/24 15:16 [facility] Laptop) Physical Therapy Assessment Goals Four Impairment weakness Short Term Goal (STG) Patient to be instructed in HEP for purposes of strengthening posterior chain musculature 03/18/24: GOAL MET STG Duration GOAL MET Media Production Operator Goal (LTG) Patient will be independent and compliant with HEP and demonstrate improvement in strength to at least 4+/5 05/11/24: mostly met, though rhomboids 4/5, lower trap 3+/5 LTG Duration 06/10/24 Three Impairment postural dysfunction with forward head, rounded shoulders Short Term Goal (STG) Patient to be instructed in neutral postural alignment and importance followed by postural correction activities and exercises and strategies for improved postural alignment statically and with functional activities 03/18/24: GOAL MET STG Duration GOAL MET Media Production Operator Goal (LTG) Patient to be able to demonstrate good postural awareness and ability to self- correct without cues and be independent and compliant with postural correction exercises and activities 05/11/24:good goal progress LTG Duration 06/10/24 Two Impairment Neck disability index score 40 % Media Production Operator Goal (LTG) Decrease NDI to no greater than 20% as measure of improved activity tolerance and function 03/18/24: decreased to 35% 05/11/24: LTG Duration 06/10/24 One Impairment neck pain with radicular symptoms Short Term Goal (STG) Decrease pain and radicular symptoms by at least 50% 03/18/24: min decrease in highest level of pain but less frequent, reports exercises help, partially met 05/11/24: goal partially met STG Duration goal partially met Media Production Operator Goal (LTG) Decrease pain and radicular symptoms by at least 75% with all usual activities LTG Duration 06/10/24 Assessment Summary Assessment Palpable muscle tension through upper cervical, UT and LS, decreased with manual therapy techniques, patient demonstrating improved postural awareness. Due to recent increase in neurological symptoms recommend continued PT, patient in agreement. Physical Therapy Plan Frequency and Duration Frequency of Treatment 1x/Week Duration of treatment (weeks) 4 Plan of Care Start Date 05/11/24 Plan of Care End Date 06/10/24 Therapeutic Interventions Therapeutic Interventions Home Exercise Program,Manual Therapy,Patient/Caregiver Education,Self-Care/Home Management,Soft Tissue Mobilization,Taping, Therapeutic Activities, Therapeutic Exercises Modalities Cold Pack/Ice Massage,Electric Stimulation,Hot Packs, Infrared Therapy,Traction- Mechanical,Ultrasound Next Visit Focus/Plan Next Note Type Treatment Note Next Visit Plan Assess response to ultrasound and increased manual supine today. Continue postural education and exercises, manual traction and soft tissue techniques, c/s mob as toelrated for improved ROM.
--- NOTE | 2024-05-24 14:32 | PT.OTN ---
Current Diagnoses Spondylosis without myelopathy or radiculopathy, cervical region (05/24/24) Radiculopathy, cervical region (05/24/24) Abnormal posture (05/24/24) Weakness (05/24/24) Physical Therapy Treatment Note PT-OP-A Visit Information Start: 02/12/24 08:02 Freq: Status: Active Protocol: Document 05/24/24 13:46 [facility] (Rec: 05/24/24 14:32 [facility]AK Laptop) Out-Patient Physical Therapy Visit Information Visit Information Visit Type Treatment Note Visit Start Time 13:48 Visit Number 21 Number of QUALITY PROCESS LEAD Visits 0 Evaluation Information Evaluation Date 02/12/24 Precautions Precautions osteoporosis left hip, osteopenia right hip osteoporosis neck PT-OP-B Current Condition Start: 02/12/24 08:02 Freq: Status: Active Protocol: Document 04/28/24 10:40 [facility]AK (Rec: 04/28/24 11:25 SAK [id number]) Current Condition History of Current Condition Onset Date chronic since 1989 Current Complaints neck pain, arm and hand numbness, thoracic and lumbar pain History of Current Condition chronic neck pain with radicular symptoms since [place] the [place]. Initially diagnosed with lateral epicondylitis, didn't look at neck. recent injection which helped a little. Prior injections in lumbar spine very help, no injections thoracic spine. Pain increases with sitting, bending. Has had PT in the past, has been helpful. Difficult to get motivated to do any regular exercise except golfing and walking. Uses heating pad, ice wrap. Also c /o occasional numbness in hands, varies from thumb only to entire hand. Sleeps on side, pillow under neck and head not shoulders. Has foam roller Prior Treatments and Tests Dexa scan neck MRI: stenosis and arthritis prior chiropractor but not recently PT-OP-C Subjective Start: 02/12/24 08:02 Freq: Status: Active Protocol: Document 05/24/24 13:46 [facility] (Rec: 05/24/24 14:32 SAK Laptop) OP-PT Subjective Patient Comments Patient Comments Feels numbness left greater than right fingertips, most frequent with playing guitar, hard to keep track of guitar pick. Had company, didn't do as many exercises and was also playing guitar more. Planning to get back to the gym. PT-OP-H Neuro Start: 02/12/24 08:02 Freq: Status: Active Protocol: Document 02/12/24 09:46 [facility] (Rec: 02/12/24 16:10 [facility] [id number]) Sensation Evaluation Gross Sensation Sensation Description Paresthesia Dermatome Impairments C5,C6 Comments Summary Comments Patient reports having more difficulty holding onto pic for playing guAylar, thumb often feels numb PT-OP-J Posture/Palpation/Skin Start: 02/12/24 08:02 Freq: Status: Active Protocol: Document 02/12/24 09:46 [facility] (Rec: 02/12/24 16:10 [facility] [id number]) Posture Evaluation Position Standing Head/C-Spine Posture Forward Head T-Spine Posture Increased Kyphosis L-Spine Posture Decreased Lordosis Shoulder Posture (L) Rounded,(R) Rounded Scapula Posture (L) Protracted,(R) Protracted Arm Posture (L) Internally Rotated,(R) Internally Rotated Pelvis Posture Posterior Tilted Comments Posture Comments poor gluteal muscle tone Palpation Assessment Location c/s Palpation Findings Soft Tissue Tightness,Muscle Guarding,Tenderness PT-OP-K Range of Motion Start: 02/12/24 08:02 Freq: Status: Active Protocol: Document 02/12/24 09:46 [facility] (Rec: 02/12/24 16:10 [facility] [id number]) Cervical Spine Range of Motion Cervical Spine Active Flexion 52 Extension 40 Rotation Left 35 Rotation Right 30 Lateral Flexion Left 12 Lateral Flexion Right 44 ROM Limitations Soft Tissue Tightness, Contracture,Pain Shoulder Goniometric Range of Motion Shoulder john Shoulder ROM WFL Yes PT-OP-L Special Tests Start: 02/12/24 08:02 Freq: Status: Active Protocol: Document 02/12/24 09:46 [facility] (Rec: 02/12/24 16:10 [facility] [id number]) Special Tests Cervical Spine Special Tests Traction Test Results + Comments decrease symptoms Foraminal Compression Test Results + Comments increased tightness and pain sensation Upper Limb Tension Test Comments perform next session PT-OP-M Strength Start: 02/12/24 08:02 Freq: Status: Active Protocol: Document 02/12/24 09:46 [facility] (Rec: 02/12/24 16:10 [facility] [id number]) Cervical Spine Strength Cervical Spine Manual Muscle Testing Flexion (C1-2) 4 Good Extension 4 Good Rotation Left 4 Good Rotation Right 4 Good Lateral Flexion Left (C3) 4 Good Lateral Flexion Right (C3) 4 Good Shoulder Strength Shoulder Manual Muscle Testing Left Flexion 4 Good Extension 4 Good Abduction (C5) 4 Good Adduction 4 Good External Rotation 4- Good- Internal Rotation 4 Good Horizontal Abduction 4 Good Horizontal Adduction 4 Good Right Flexion 4 Good Extension 4 Good Abduction (C5) 4 Good Adduction 4 Good External Rotation 4- Good- Internal Rotation 4 Good Elbow/Forearm Strength Elbow and Forearm Manual Muscle Testing john Flexion (C6) 4+ Good+ Extension (C7) 4+ Good+ Pronation 4+ Good+ Supination 4+ Good+ Wrist Strength Wrist Manual Muscle Testing john Flexion (C7) 4 Good Extension (C6) 4- Good- PT-OP-Q Treatments Start: 02/12/24 08:02 Freq: Status: Active Protocol: Document 05/24/24 13:46 [facility] (Rec: 05/24/24 14:32 [facility]AK Laptop) Cardio Equipment Upper Body Ergometer (UBE) Duration (Minutes) 8 RPM 55 Seat Position 11 Height 3 Other 2 min fwd, 4 min bckd, cues for neutral c/s. Towel roll vertical at t/s Gym Equipment Cable Column (Body Solid) lat pull Details cues for scapular activation/ depression Resistance 3 plates (seated) Reps/Time 15x2 to chest (over hand brand sales manager/ shld width), 10x scap only row Details cues for scapular activation, postural alignment crack walnut Resistance 2 plates (seated)- rope handles Reps/Time 10x2, 10x scap only Therapeutic Exercises Prone Exercises Escobar Reps/Minutes 10x I, T Prone Exercise Name I,T, chin tuck (prone on elbbows) Equipment Used pillows under pelvis, towel roll under forehead Reps/Minutes 5x Sitting Exercises SNAGS Sitting Exercise Name HEP Manual Therapy Treatment Soft Tissue Mobilization t/s Body Location ES, paraspinals Mobilization Type Myofascial Release,Rolling, Sustained Pressure,Other Intensity/Depth Moderate Body Position Prone Comments .prone over prone pillow, pillow rectangle roll under legs, detachable face cradle cushion under face. -STMs and Caudal ribcage TS>LS with exhale - verbal review self STMs use ball wall in pillowcase and regularly uses foam roller TS ext and rolling. [ End ] CS Body Location UT, LS, CS paraspinals, SOR Mobilization Type Myofascial Release,Rolling, Sustained Pressure,Other Intensity/Depth Moderate Body Position Supine Comments x2 pillows for cervical alignment STMs and sustained gentle pressure with MWM head nods/ turns Self-Care/Home Management Treatment Education Patient Education Body Mechanics,Home Exercise Program,Pain Management, Posture PT-OP-R Modalities Start: 02/12/24 08:02 Freq: Status: Active Protocol: Document 05/24/24 13:46 [facility] (Rec: 05/24/24 14:32 [facility]AK Laptop) Hot Pack/Cold Pack Treatment Hot Pack Location c/s, t/s Patient Position Hooklying Patient Tolerance Good PT-OP-T Assessment and Plan Start: 02/12/24 08:02 Freq: Status: Active Protocol: Document 05/24/24 13:46 [facility] (Rec: 05/24/24 14:32 [facility] Laptop) Physical Therapy Assessment Goals Four Impairment weakness Short Term Goal (STG) Patient to be instructed in HEP for purposes of strengthening posterior chain musculature 03/18/24: GOAL MET STG Duration GOAL MET [facility] Goal (LTG) Patient will be independent and compliant with HEP and demonstrate improvement in strength to at least 4+/5 05/11/24: mostly met, though rhomboids 4/5, lower trap 3+/5 LTG Duration 06/10/24 Three Impairment postural dysfunction with forward head, rounded shoulders Short Term Goal (STG) Patient to be instructed in neutral postural alignment and importance followed by postural correction activities and exercises and strategies for improved postural alignment statically and with functional activities 03/18/24: GOAL MET STG Duration GOAL MET Bench Worker Hollow Handle Goal (LTG) Patient to be able to demonstrate good postural awareness and ability to self- correct without cues and be independent and compliant with postural correction exercises and activities 05/11/24:good goal progress LTG Duration 06/10/24 Two Impairment Neck disability index score 40 % Bench Worker Hollow Handle Goal (LTG) Decrease NDI to no greater than 20% as measure of improved activity tolerance and function 03/18/24: decreased to 35% 05/11/24: LTG Duration 06/10/24 One Impairment neck pain with radicular symptoms Short Term Goal (STG) Decrease pain and radicular symptoms by at least 50% 03/18/24: min decrease in highest level of pain but less frequent, reports exercises help, partially met 05/11/24: goal partially met STG Duration goal partially met Bench Worker Hollow Handle Goal (LTG) Decrease pain and radicular symptoms by at least 75% with all usual activities LTG Duration 06/10/24 Assessment Summary Assessment Emphasis increased prone strengthening exercises, thoracic mobilization as priorities. Patient to start work at getting back to gym . Physical Therapy Plan Frequency and Duration Frequency of Treatment 1x/Week Duration of treatment (weeks) 4 Plan of Care Start Date 05/11/24 Plan of Care End Date 06/10/24 Therapeutic Interventions Therapeutic Interventions Home Exercise Program,Manual Therapy,Patient/Caregiver Education,Self-Care/Home Management,Soft Tissue Mobilization,Taping, Therapeutic Activities, Therapeutic Exercises Modalities Cold Pack/Ice Massage,Electric Stimulation,Hot Packs, Infrared Therapy,Traction- Mechanical,Ultrasound Next Visit Focus/Plan Next Note Type Treatment Note Next Visit Plan Assess response to ultrasound and increased manual supine 2 sessions ago vs prone today. Continue postural education and exercises, manual traction and soft tissue techniques, c /s and t/s mob as toelrated for improved ROM.
--- NOTE | 2024-06-01 09:48 | PT.OTN ---
Current Diagnoses Spondylosis without myelopathy or radiculopathy, cervical region (06/01/24) Radiculopathy, cervical region (06/01/24) Abnormal posture (06/01/24) Weakness (06/01/24) Physical Therapy Treatment Note PT-OP-A Visit Information Start: 02/12/24 08:02 Freq: Status: Active Protocol: Document 06/01/24 09:03 PG (Rec: 06/01/24 10:24 PG Laptop) Out-Patient Physical Therapy Visit Information Visit Information Visit Type Treatment Note Visit Note Opal CHAN performed manual therapy and instructed ther ex with direct supervision of IVY, Vee and permission from pt. Visit Start Time 09:03 Visit Stop Time 09:48 Visit Number 22 Number of CHAIR Visits 1 Evaluation Information Evaluation Date 02/12/24 Precautions Precautions osteoporosis left hip, osteopenia right hip osteoporosis neck PT-OP-B Current Condition Start: 02/12/24 08:02 Freq: Status: Active Protocol: Document 04/28/24 10:40 SAK (Rec: 04/28/24 11:25 SAK [id number]) Current Condition History of Current Condition Onset Date chronic since 1989 Current Complaints neck pain, arm and hand numbness, thoracic and lumbar pain History of Current Condition chronic neck pain with radicular symptoms since fishing in the [place]. Initially diagnosed with lateral epicondylitis, didn't look at neck. recent injection which helped a little. Prior injections in lumbar spine very help, no injections thoracic spine. Pain increases with sitting, bending. Has had PT in the past, has been helpful. Difficult to get motivated to do any regular exercise except golfing and walking. Uses heating pad, ice wrap. Also c /o occasional numbness in hands, varies from thumb only to entire hand. Sleeps on side, pillow under neck and head not shoulders. Has foam roller Prior Treatments and Tests Dexa scan neck MRI: stenosis and arthritis prior chiropractor but not recently PT-OP-C Subjective Start: 02/12/24 08:02 Freq: Status: Active Protocol: Document 06/01/24 09:03 PG (Rec: 06/01/24 10:24 PG Laptop) OP-PT Subjective Patient Comments Patient Comments Pt has neck has been bothering him due to some cleaning up on his property. States it's hard to break his habits when playing his guitar, feels he starts out in a good position but it slowly fades while he's playing. PT-OP-H Neuro Start: 02/12/24 08:02 Freq: Status: Active Protocol: Document 02/12/24 09:46 [facility] (Rec: 02/12/24 16:10 [facility] [id number]) Sensation Evaluation Gross Sensation Sensation Description Paresthesia Dermatome Impairments C5,C6 Comments Summary Comments Patient reports having more difficulty holding onto pic for playing guitar, thumb often feels numb PT-OP-J Posture/Palpation/Skin Start: 02/12/24 08:02 Freq: Status: Active Protocol: Document 02/12/24 09:46 [facility] (Rec: 02/12/24 16:10 [facility] [id number]) Posture Evaluation Position Standing Head/C-Spine Posture Forward Head T-Spine Posture Increased Kyphosis L-Spine Posture Decreased Lordosis Shoulder Posture (L) Rounded,(R) Rounded Scapula Posture (L) Protracted,(R) Protracted Arm Posture (L) Internally Rotated,(R) Internally Rotated Pelvis Posture Posterior Tilted Comments Posture Comments poor gluteal muscle tone Palpation Assessment Location c/s Palpation Findings Soft Tissue Tightness,Muscle Guarding,Tenderness PT-OP-K Range of Motion Start: 02/12/24 08:02 Freq: Status: Active Protocol: Document 02/12/24 09:46 [facility] (Rec: 02/12/24 16:10 [facility] [id number]) Cervical Spine Range of Motion Cervical Spine Active Flexion 52 Extension 40 Rotation Left 35 Rotation Right 30 Lateral Flexion Left 12 Lateral Flexion Right 44 ROM Limitations Soft Tissue Tightness, Contracture,Pain Shoulder Goniometric Range of Motion Shoulder john Shoulder ROM WFL Yes PT-OP-L Special Tests Start: 02/12/24 08:02 Freq: Status: Active Protocol: Document 02/12/24 09:46 [facility] (Rec: 02/12/24 16:10 [facility] [id number]) Special Tests Cervical Spine Special Tests Traction Test Results + Comments decrease symptoms Foraminal Compression Test Results + Comments increased tightness and pain sensation Upper Limb Tension Test Comments perform next session PT-OP-M Strength Start: 02/12/24 08:02 Freq: Status: Active Protocol: Document 02/12/24 09:46 [facility] (Rec: 02/12/24 16:10 SAK [id number]) Cervical Spine Strength Cervical Spine Manual Muscle Testing Flexion (C1-2) 4 Good Extension 4 Good Rotation Left 4 Good Rotation Right 4 Good Lateral Flexion Left (C3) 4 Good Lateral Flexion Right (C3) 4 Good Shoulder Strength Shoulder Manual Muscle Testing Left Flexion 4 Good Extension 4 Good Abduction (C5) 4 Good Adduction 4 Good External Rotation 4- Good- Internal Rotation 4 Good Horizontal Abduction 4 Good Horizontal Adduction 4 Good Right Flexion 4 Good Extension 4 Good Abduction (C5) 4 Good Adduction 4 Good External Rotation 4- Good- Internal Rotation 4 Good Elbow/Forearm Strength Elbow and Forearm Manual Muscle Testing john Flexion (C6) 4+ Good+ Extension (C7) 4+ Good+ Pronation 4+ Good+ Supination 4+ Good+ Wrist Strength Wrist Manual Muscle Testing john Flexion (C7) 4 Good Extension (C6) 4- Good- PT-OP-Q Treatments Start: 02/12/24 08:02 Freq: Status: Active Protocol: Document 06/01/24 09:03 PG (Rec: 06/01/24 10:24 PG Laptop) Cardio Equipment Upper Body Ergometer (UBE) Duration (Minutes) 8 RPM 55 Seat Position 11 Height 3 Other 2 min fwd, 4 min bckd, cues for neutral c/s. Towel roll vertical at t/s Therapeutic Exercises Prone Exercises Escobar Prone Exercise Name Abduction (neutral & Full ER) & Scaption (neutral & Full ER) -REviewed Prog Equipment Used trialed rolled towel under forehead Reps/Minutes 5-2 reps each with 2 seconds hold Comments VC's for chin tucks, scap retraction. Tactile cues for scaption position. Manual Therapy Treatment Consent Patient gave verbal consent for manual Yes treatment Soft Tissue Mobilization t/s Body Location ES, paraspinals Mobilization Type Myofascial Release,Rolling, Sustained Pressure,Other Intensity/Depth Moderate Body Position Prone Comments - prone over prone pillow, pillow rectangle roll under legs, detachable face cradle cushion under face. CS Body Location UT, LS, CS paraspinals, SOR Mobilization Type Myofascial Release,Rolling, Sustained Pressure,Other Intensity/Depth Moderate Body Position Supine Comments x2 pillows for cervical alignment STMs and sustained gentle pressure with MWM head nods/ turns Self-Care/Home Management Treatment Education Patient Education Body Mechanics,Home Exercise Program,Pain Management, Posture Other Education Suggested playing guitar in a mirror to help maintain neutral c/s positioning and improved posture throughout the entire guitar session. PT-OP-R Modalities Start: 02/12/24 08:02 Freq: Status: Active Protocol: Document 05/24/24 13:46 SAK (Rec: 05/24/24 14:32 SAK Laptop) Hot Pack/Cold Pack Treatment Hot Pack Location c/s, t/s Patient Position Hooklying Patient Tolerance Good PT-OP-T Assessment and Plan Start: 02/12/24 08:02 Freq: Status: Active Protocol: Document 06/01/24 09:03 PG (Rec: 06/01/24 10:24 PG Laptop) Physical Therapy Assessment Goals Four Impairment weakness Short Term Goal (STG) Patient to be instructed in HEP for purposes of strengthening posterior chain musculature 03/18/24: GOAL MET STG Duration GOAL MET Car Jockey Goal (LTG) Patient will be independent and compliant with HEP and demonstrate improvement in strength to at least 4+/5 05/11/24: mostly met, though rhomboids 4/5, lower trap 3+/5 LTG Duration 06/10/24 Three Impairment postural dysfunction with forward head, rounded shoulders Short Term Goal (STG) Patient to be instructed in neutral postural alignment and importance followed by postural correction activities and exercises and strategies for improved postural alignment statically and with functional activities 03/18/24: GOAL MET STG Duration GOAL MET Fpc Goal (LTG) Patient to be able to demonstrate good postural awareness and ability to self- correct without cues and be independent and compliant with postural correction exercises and activities 05/11/24:good goal progress LTG Duration 06/10/24 Two Impairment Neck disability index score 40 % Fpc Goal (LTG) Decrease NDI to no greater than 20% as measure of improved activity tolerance and function 03/18/24: decreased to 35% 05/11/24: LTG Duration 06/10/24 One Impairment neck pain with radicular symptoms Short Term Goal (STG) Decrease pain and radicular symptoms by at least 50% 03/18/24: min decrease in highest level of pain but less frequent, reports exercises help, partially met 05/11/24: goal partially met STG Duration goal partially met Car Jockey Goal (LTG) Decrease pain and radicular symptoms by at least 75% with all usual activities LTG Duration 06/10/24 Assessment Summary Assessment Focused on manual therapy to upper c/s, and t/s to decrease muscle tension and improve ROM. Reviewed prone Escobar exercises for posterior strengthening (HO provided), required v/c's to maintain chin tucks and perform scaption positioning. Briefly spoke about playing guitar in the mirror for improvement with carry over and maintaining good posture and neutral c/s alignment. Suggested bringing guitar into next treatment session. Physical Therapy Plan Frequency and Duration Frequency of Treatment 1x/Week Duration of treatment (weeks) 4 Plan of Care Start Date 05/11/24 Plan of Care End Date 06/10/24 Therapeutic Interventions Therapeutic Interventions Home Exercise Program,Manual Therapy,Patient/Caregiver Education,Self-Care/Home Management,Soft Tissue Mobilization,Taping, Therapeutic Activities, Therapeutic Exercises Modalities Cold Pack/Ice Massage,Electric Stimulation,Hot Packs, Infrared Therapy,Traction- Mechanical,Ultrasound Next Visit Focus/Plan Next Note Type Treatment Note Next Visit Plan Practice (or simulate) playing the guitar in the mirror while maintaining good posture and c/s alignment. Continue postural education and exercises, manual traction and soft tissue techniques, c /s and t/s mob as toelrated for improved ROM.
--- NOTE | 2024-06-08 11:30 | PT.OTN ---
Current Diagnoses Spondylosis without myelopathy or radiculopathy, cervical region (06/08/24) Radiculopathy, cervical region (06/08/24) Abnormal posture (06/08/24) Weakness (06/08/24) Physical Therapy Treatment Note PT-OP-A Visit Information Start: 02/12/24 08:02 Freq: Status: Active Protocol: Document 06/08/24 10:46 PG (Rec: 06/08/24 12:33 PG [id number]) Out-Patient Physical Therapy Visit Information Visit Information Visit Type Treatment Note Visit Note Opal CHAN performed manual therapy and instructed ther ex with direct supervision of CLOTH BIN PACKER, Vee and permission from pt. Visit Start Time 10:46 Visit Stop Time 11:30 Visit Number 23 (06/19 with re-eval) Number of CLOTH BIN PACKER Visits 2 Evaluation Information Evaluation Date 02/12/24 Precautions Precautions osteoporosis left hip, osteopenia right hip osteoporosis neck PT-OP-B Current Condition Start: 02/12/24 08:02 Freq: Status: Active Protocol: Document 04/28/24 10:40 SAK (Rec: 04/28/24 11:25 SAK [id number]) Current Condition History of Current Condition Onset Date chronic since 1989 Current Complaints neck pain, arm and hand numbness, thoracic and lumbar pain History of Current Condition chronic neck pain with radicular symptoms since fishing in the [place]. Initially diagnosed with lateral epicondylitis, didn't look at neck. recent injection which helped a little. Prior injections in lumbar spine very help, no injections thoracic spine. Pain increases with sitting, bending. Has had PT in the past, has been helpful. Difficult to get motivated to do any regular exercise except golfing and walking. Uses heating pad, ice wrap. Also c /o occasional numbness in hands, varies from thumb only to entire hand. Sleeps on side, pillow under neck and head not shoulders. Has foam roller Prior Treatments and Tests Dexa scan neck MRI: stenosis and arthritis prior chiropractor but not recently PT-OP-C Subjective Start: 02/12/24 08:02 Freq: Status: Active Protocol: Document 06/08/24 10:46 PG (Rec: 06/08/24 12:33 PG [id number]) OP-PT Subjective Patient Comments Patient Comments Pt states neck is a bit sore and he came into tx with a bit of a headache. Pt has had family in town these past two weekends, hard to get HEP in. PT-OP-H Neuro Start: 02/12/24 08:02 Freq: Status: Active Protocol: Document 02/12/24 09:46 [facility] (Rec: 02/12/24 16:10 [facility] [id number]) Sensation Evaluation Gross Sensation Sensation Description Paresthesia Dermatome Impairments C5,C6 Comments Summary Comments Patient reports having more difficulty holding onto pic for playing guitar, thumb often feels numb PT-OP-J Posture/Palpation/Skin Start: 02/12/24 08:02 Freq: Status: Active Protocol: Document 02/12/24 09:46 [facility] (Rec: 02/12/24 16:10 [facility] [id number]) Posture Evaluation Position Standing Head/C-Spine Posture Forward Head T-Spine Posture Increased Kyphosis L-Spine Posture Decreased Lordosis Shoulder Posture (L) Rounded,(R) Rounded Scapula Posture (L) Protracted,(R) Protracted Arm Posture (L) Internally Rotated,(R) Internally Rotated Pelvis Posture Posterior Tilted Comments Posture Comments poor gluteal muscle tone Palpation Assessment Location c/s Palpation Findings Soft Tissue Tightness,Muscle Guarding,Tenderness PT-OP-K Range of Motion Start: 02/12/24 08:02 Freq: Status: Active Protocol: Document 02/12/24 09:46 [facility] (Rec: 02/12/24 16:10 [facility] [id number]) Cervical Spine Range of Motion Cervical Spine Active Flexion 52 Extension 40 Rotation Left 35 Rotation Right 30 Lateral Flexion Left 12 Lateral Flexion Right 44 ROM Limitations Soft Tissue Tightness, Contracture,Pain Shoulder Goniometric Range of Motion Shoulder john Shoulder ROM WFL Yes PT-OP-L Special Tests Start: 02/12/24 08:02 Freq: Status: Active Protocol: Document 02/12/24 09:46 [facility] (Rec: 02/12/24 16:10 [facility] [id number]) Special Tests Cervical Spine Special Tests Traction Test Results + Comments decrease symptoms Foraminal Compression Test Results + Comments increased tightness and pain sensation Upper Limb Tension Test Comments perform next session PT-OP-M Strength Start: 02/12/24 08:02 Freq: Status: Active Protocol: Document 02/12/24 09:46 [facility] (Rec: 02/12/24 16:10 [facility] [id number]) Cervical Spine Strength Cervical Spine Manual Muscle Testing Flexion (C1-2) 4 Good Extension 4 Good Rotation Left 4 Good Rotation Right 4 Good Lateral Flexion Left (C3) 4 Good Lateral Flexion Right (C3) 4 Good Shoulder Strength Shoulder Manual Muscle Testing Left Flexion 4 Good Extension 4 Good Abduction (C5) 4 Good Adduction 4 Good External Rotation 4- Good- Internal Rotation 4 Good Horizontal Abduction 4 Good Horizontal Adduction 4 Good Right Flexion 4 Good Extension 4 Good Abduction (C5) 4 Good Adduction 4 Good External Rotation 4- Good- Internal Rotation 4 Good Elbow/Forearm Strength Elbow and Forearm Manual Muscle Testing john Flexion (C6) 4+ Good+ Extension (C7) 4+ Good+ Pronation 4+ Good+ Supination 4+ Good+ Wrist Strength Wrist Manual Muscle Testing john Flexion (C7) 4 Good Extension (C6) 4- Good- PT-OP-Q Treatments Start: 02/12/24 08:02 Freq: Status: Active Protocol: Document 06/08/24 10:46 PG (Rec: 06/08/24 12:33 PG [id number]) Cardio Equipment Upper Body Ergometer (UBE) Duration (Minutes) 8 RPM 60 Seat Position 10 Height 2 Other 2 min fwd, 6 min bcwrd Therapeutic Exercises Sitting Exercises Anterior neck mm stretch Sitting Exercise Name SCM/scalenes stretch, added to HEP & provided HO Side bilateral Reps/Minutes 30 sec each side Comments cues for posture, chin tuck, set up Therapeutic Activity Therapeutic Activity Posture with guitar Comments Worked on sitting posture in chair (mesh) with foot stool ( 4inch box) as pt would while playing guitar. Pt made sure feet were flat, while back had support (2 pillows) and held guitar (dowel) in different positions. Cued for, chin tuck, eye's upward to decrease neck flexion and back against support for upright posture and decrease in thoracic flexion. Manual Therapy Treatment Consent Patient gave verbal consent for manual Yes treatment Soft Tissue Mobilization CS Body Location UT, LS, CS paraspinals, SOR, SCM, scalenes Mobilization Type Myofascial Release,Rolling, Sustained Pressure Intensity/Depth Moderate Body Position Hooklying Comments x2 pillows under head for cervical alignment and wedge under knees. STMs and sustained gentle pressure Manual Traction Cervical Traction Body Position Hooklying Reps/Duration 3x15 seconds Comments good response Self-Care/Home Management Treatment Education Patient Education Body Mechanics,Home Exercise Program,Pain Management, Posture Other Education Spoke with pt about ways to improve posture while playing guitar. Spoke about practicing in a full body mirror for visual feedback of posture and decrease need to flex neck to see the guitar cords. Suggested notes around his musical equipment for reminders to check posture. PT-OP-R Modalities Start: 02/12/24 08:02 Freq: Status: Active Protocol: Document 05/24/24 13:46 SAK (Rec: 05/24/24 14:32 SAK Laptop) Hot Pack/Cold Pack Treatment Hot Pack Location c/s, t/s Patient Position Hooklying Patient Tolerance Good PT-OP-T Assessment and Plan Start: 02/12/24 08:02 Freq: Status: Active Protocol: Document 06/08/24 10:46 PG (Rec: 06/08/24 12:33 PG [id number]) Physical Therapy Assessment Goals Four Impairment weakness Short Term Goal (STG) Patient to be instructed in HEP for purposes of strengthening posterior chain musculature 03/18/24: GOAL MET STG Duration GOAL MET Creative Services Writer Goal (LTG) Patient will be independent and compliant with HEP and demonstrate improvement in strength to at least 4+/5 05/11/24: mostly met, though rhomboids /5, lower trap 3+/5 LTG Duration 06/10/24 Three Impairment postural dysfunction with forward head, rounded shoulders Short Term Goal (STG) Patient to be instructed in neutral postural alignment and importance followed by postural correction activities and exercises and strategies for improved postural alignment statically and with functional activities 03/18/24: GOAL MET STG Duration GOAL MET Creative Services Writer Goal (LTG) Patient to be able to demonstrate good postural awareness and ability to self- correct without cues and be independent and compliant with postural correction exercises and activities 05/11/24:good goal progress LTG Duration 06/10/24 Two Impairment Neck disability index score 40 % Creative Services Writer Goal (LTG) Decrease NDI to no greater than 20% as measure of improved activity tolerance and function 03/18/24: decreased to 35% 05/11/24: LTG Duration 06/10/24 One Impairment neck pain with radicular symptoms Short Term Goal (STG) Decrease pain and radicular symptoms by at least 50% 03/18/24: min decrease in highest level of pain but less frequent, reports exercises help, partially met 05/11/24: goal partially met STG Duration goal partially met Creative Services Writer Goal (LTG) Decrease pain and radicular symptoms by at least 75% with all usual activities LTG Duration 06/10/24 Assessment Summary Assessment Continued to focus on manual therapy to the c/s to decrease pain and muscle tension. Instructed pt in a stretch for the anterior neck muscles to help relieve tightness and decrease head from being pulled in a forward position, added to HEP and provided HO. Looked at pt's guitar playing set up and worked on posture, decreasing time in increased thoracic/cervical spine flexion and forward head positioning with set up, adding back support, the idea of a full body mirror and cueing for chin tuck. Physical Therapy Plan Frequency and Duration Frequency of Treatment 1x/Week Duration of treatment (weeks) 4 Plan of Care Start Date 05/11/24 Plan of Care End Date 06/10/24 Therapeutic Interventions Therapeutic Interventions Home Exercise Program,Manual Therapy,Patient/Caregiver Education,Self-Care/Home Management,Soft Tissue Mobilization,Taping, Therapeutic Activities, Therapeutic Exercises Modalities Cold Pack/Ice Massage,Electric Stimulation,Hot Packs, Infrared Therapy,Traction- Mechanical,Ultrasound Next Visit Focus/Plan Next Note Type Treatment Note Next Visit Plan Next: Ask pt about playing guitar after prev tx's postural education and set up suggestions. Review Escobar self HEP, progress? Continue postural education and exercises, manual traction and soft tissue techniques, c /s and t/s mob as tolerated for improved ROM.
--- NOTE | 2024-06-15 17:14 | PT.OTN ---
Current Diagnoses Spondylosis without myelopathy or radiculopathy, cervical region (06/15/24) Radiculopathy, cervical region (06/15/24) Abnormal posture (06/15/24) Weakness (06/15/24) Physical Therapy Treatment Note PT-OP-A Visit Information Start: 02/12/24 08:02 Freq: Status: Active Protocol: Document 06/15/24 09:51 SAK (Rec: 06/15/24 10:46 SAK Laptop) Out-Patient Physical Therapy Visit Information Visit Information Visit Type Treatment Note Visit Start Time 09:51 Visit Stop Time 10:46 Visit Number 24 (06/19 with re-eval) Number of ASSET PROTECTION ASSISTANT Visits 0 Evaluation Information Evaluation Date 02/12/24 Precautions Precautions osteoporosis left hip, osteopenia right hip osteoporosis neck PT-OP-B Current Condition Start: 02/12/24 08:02 Freq: Status: Active Protocol: Document 04/28/24 10:40 SAK (Rec: 04/28/24 11:25 SAK [id number]) Current Condition History of Current Condition Onset Date chronic since 1989 Current Complaints neck pain, arm and hand numbness, thoracic and lumbar pain History of Current Condition chronic neck pain with radicular symptoms 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 Initially diagnosed with lateral epicondylitis, didn't look at neck. recent injection which helped a little. Prior injections in lumbar spine very help, no injections thoracic spine. Pain increases with sitting, bending. Has had PT in the past, has been helpful. Difficult to get motivated to do any regular exercise except golfing and walking. Uses heating pad, ice wrap. Also c /o occasional numbness in hands, varies from thumb only to entire hand. Sleeps on side, pillow under neck and head not shoulders. Has foam roller Prior Treatments and Tests Dexa scan neck MRI: stenosis and arthritis prior chiropractor but not recently PT-OP-C Subjective Start: 02/12/24 08:02 Freq: Status: Active Protocol: Document 06/15/24 09:51 SAK (Rec: 06/15/24 10:46 SAK Laptop) OP-PT Subjective Patient Comments Patient Comments Had a massage last Friday, was mostly pain-free next day. Pt. agreed feels it is up to me. Has appointment with Dr. Munoz 07/02/24. Reports while company at his house got out of bed too quickly and had onset of low back pain he had to nurse for a few days. PT-OP-H Neuro Start: 02/12/24 08:02 Freq: Status: Active Protocol: Document 02/12/24 09:46 [facility] (Rec: 02/12/24 16:10 [facility] [id number]) Sensation Evaluation Gross Sensation Sensation Description Paresthesia Dermatome Impairments C5,C6 Comments Summary Comments Patient reports having more difficulty holding onto pic for playing guitar, thumb often feels numb PT-OP-J Posture/Palpation/Skin Start: 02/12/24 08:02 Freq: Status: Active Protocol: Document 02/12/24 09:46 [facility] (Rec: 02/12/24 16:10 [facility] [id number]) Posture Evaluation Position Standing Head/C-Spine Posture Forward Head T-Spine Posture Increased Kyphosis L-Spine Posture Decreased Lordosis Shoulder Posture (L) Rounded,(R) Rounded Scapula Posture (L) Protracted,(R) Protracted Arm Posture (L) Internally Rotated,(R) Internally Rotated Pelvis Posture Posterior Tilted Comments Posture Comments poor gluteal muscle tone Palpation Assessment Location c/s Palpation Findings Soft Tissue Tightness,Muscle Guarding,Tenderness PT-OP-K Range of Motion Start: 02/12/24 08:02 Freq: Status: Active Protocol: Document 02/12/24 09:46 [facility] (Rec: 02/12/24 16:10 [facility] [id number]) Cervical Spine Range of Motion Cervical Spine Active Flexion 52 Extension 40 Rotation Left 35 Rotation Right 30 Lateral Flexion Left 12 Lateral Flexion Right 44 ROM Limitations Soft Tissue Tightness, Contracture,Pain Shoulder Goniometric Range of Motion Shoulder john Shoulder ROM WFL Yes PT-OP-L Special Tests Start: 02/12/24 08:02 Freq: Status: Active Protocol: Document 02/12/24 09:46 [facility] (Rec: 02/12/24 16:10 [facility] [id number]) Special Tests Cervical Spine Special Tests Traction Test Results + Comments decrease symptoms Foraminal Compression Test Results + Comments increased tightness and pain sensation Upper Limb Tension Test Comments perform next session PT-OP-M Strength Start: 02/12/24 08:02 Freq: Status: Active Protocol: Document 02/12/24 09:46 [facility] (Rec: 02/12/24 16:10 [facility] [id number]) Cervical Spine Strength Cervical Spine Manual Muscle Testing Flexion (C1-2) 4 Good Extension 4 Good Rotation Left 4 Good Rotation Right 4 Good Lateral Flexion Left (C3) 4 Good Lateral Flexion Right (C3) 4 Good Shoulder Strength Shoulder Manual Muscle Testing Left Flexion 4 Good Extension 4 Good Abduction (C5) 4 Good Adduction 4 Good External Rotation 4- Good- Internal Rotation 4 Good Horizontal Abduction 4 Good Horizontal Adduction 4 Good Right Flexion 4 Good Extension 4 Good Abduction (C5) 4 Good Adduction 4 Good External Rotation 4- Good- Internal Rotation 4 Good Elbow/Forearm Strength Elbow and Forearm Manual Muscle Testing john Flexion (C6) 4+ Good+ Extension (C7) 4+ Good+ Pronation 4+ Good+ Supination 4+ Good+ Wrist Strength Wrist Manual Muscle Testing john Flexion (C7) 4 Good Extension (C6) 4- Good- PT-OP-Q Treatments Start: 02/12/24 08:02 Freq: Status: Active Protocol: Document 06/15/24 09:51 [facility] (Rec: 06/15/24 10:46 [facility] Laptop) Cardio Equipment Upper Body Ergometer (UBE) Duration (Minutes) 8 RPM 60 Seat Position 10 Height 2 Other 2 min fwd, 6 min bcwrd Therapeutic Exercises Prone Exercises Escobar Prone Exercise Name Abduction (neutral & Full ER) & Scaption (neutral & Full ER) -REviewed Prog Equipment Used trialed rolled towel under forehead Reps/Minutes 5-2 reps each with 2 seconds hold Comments VC's for chin tucks, scap retraction. Tactile cues for scaption position. Sitting Exercises Anterior neck mm stretch Sitting Exercise Name SCM/scalenes stretch, added to HEP & provided HO Side bilateral Reps/Minutes 30 sec each side Comments cues for posture, chin tuck, longer hold , set up Manual Therapy Treatment Soft Tissue Mobilization t/s Body Location ES, paraspinals Mobilization Type Myofascial Release,Rolling, Sustained Pressure,Other Intensity/Depth Moderate Body Position Prone Comments - prone over prone pillow, pillow rectangle roll under legs, detachable face cradle cushion under face. CS Body Location UT, LS, CS paraspinals, SOR, SCM, scalenes Mobilization Type Myofascial Release,Rolling, Sustained Pressure Intensity/Depth Moderate Body Position Hooklying Comments x2 pillows under head for cervical alignment and wedge under knees. STMs and sustained gentle pressure Self-Care/Home Management Treatment Education Patient Education Body Mechanics,Home Exercise Program,Pain Management, Posture PT-OP-R Modalities Start: 02/12/24 08:02 Freq: Status: Active Protocol: Document 06/15/24 09:51 [facility] (Rec: 06/15/24 10:48 [facility] Laptop) Hot Pack/Cold Pack Treatment Hot Pack Location c/s, t/s Patient Position Hooklying Patient Tolerance Good Infrared Treatment Treatment L c/s Body Position Sitting Continuous/Pulsed Continuous Program or Protocal chronic joint pain/stiffness Comments 4 locations PT-OP-T Assessment and Plan Start: 02/12/24 08:02 Freq: Status: Active Protocol: Document 06/15/24 09:51 [facility] (Rec: 06/15/24 10:46 [facility] Laptop) Physical Therapy Assessment Goals Four Impairment weakness Short Term Goal (STG) Patient to be instructed in HEP for purposes of strengthening posterior chain musculature 03/18/24: GOAL MET STG Duration GOAL MET Roofing Machine Operator Goal (LTG) Patient will be independent and compliant with HEP and demonstrate improvement in strength to at least 4+/5 05/11/24: mostly met, though rhomboids 4/5, lower trap 3+/5 06/15/24: improved, rhomboids 4+ /5, lower trap 4-/5 LTG Duration 06/29/24 Three Impairment postural dysfunction with forward head, rounded shoulders Short Term Goal (STG) Patient to be instructed in neutral postural alignment and importance followed by postural correction activities and exercises and strategies for improved postural alignment statically and with functional activities 03/18/24: GOAL MET STG Duration GOAL MET Assisted Goal (LTG) Patient to be able to demonstrate good postural awareness and ability to self- correct without cues and be independent and compliant with postural correction exercises and activities 05/11/24:good goal progress 06/15/24: mostly met LTG Duration 06/29/24 Two Impairment Neck disability index score 40 % Roofing Machine Operator Goal (LTG) Decrease NDI to no greater than 20% as measure of improved activity tolerance and function 03/18/24: decreased to 35% 06/15/24: 27%, improved LTG Duration 06/29/24 One Impairment neck pain with radicular symptoms Short Term Goal (STG) Decrease pain and radicular symptoms by at least 50% 03/18/24: min decrease in highest level of pain but less frequent, reports exercises help, partially met 05/11/24: goal partially met STG Duration goal met Roofing Machine Operator Goal (LTG) Decrease pain and radicular symptoms by at least 75% with all usual activities 06/15/24: no further progress LTG Duration 06/29/24 Assessment Summary Assessment Review posterior chain strengthening exercises with cues for technique, postural correction. REviewed SCM stretch with cues for increased time and deep breathing end range. Patient has made progress toward goals but appears to be plateauing. REcommend 1 further PT treatment then discharge to independent HEP and self management. Patient in agreement. Physical Therapy Plan Frequency and Duration Frequency of Treatment 1 visit Duration of treatment (weeks) 2 Plan of Care Start Date 06/15/24 Plan of Care End Date 06/29/24 Therapeutic Interventions Therapeutic Interventions Home Exercise Program,Manual Therapy,Patient/Caregiver Education,Self-Care/Home Management,Soft Tissue Mobilization,Taping, Therapeutic Activities, Therapeutic Exercises Modalities Cold Pack/Ice Massage,Electric Stimulation,Hot Packs, Infrared Therapy,Traction- Mechanical,Ultrasound Next Visit Focus/Plan Next Note Type Treatment Note Next Visit Plan Final HEP review, assess response to cold laser and continue as tolerated. Issue any additional HEP HO. Anticipate discharge from PT.
--- NOTE | 2024-06-15 17:15 | PT.OPPOC ---
Physical, Occupational & Speech Therapy At [facility] Current Diagnoses Spondylosis without myelopathy or radiculopathy, cervical region (06/15/24) Radiculopathy, cervical region (06/15/24) Abnormal posture (06/15/24) Weakness (06/15/24) Visit Care Team Role Provider Type Pedro Mcbride MD Family Provider Physician Primary Care Provider Specialty: Family Practice Address: [address] [place] [address], [id number] Email: [email or web address] Nelson Munoz DO Attending Provider Physician Referring Provider Specialty: Interventional Radiology Physiatry Pain Management Address: [facility] [place], [address] Email: [email or web address] Plan Of Care PT-OP-B Current Condition Start: 02/12/24 08:02 Freq: Status: Active Protocol: Document 04/28/24 10:40 SAK (Rec: 04/28/24 11:25 SAK [id number]) Current Condition History of Current Condition Onset Date chronic since 1989 Current Complaints neck pain, arm and hand numbness, thoracic and lumbar pain History of Current Condition chronic neck pain with radicular symptoms since [place] in the [employer]. Initially diagnosed with lateral epicondylitis, didn't look at neck. recent injection which helped a little. Prior injections in lumbar spine very help, no injections thoracic spine. Pain increases with sitting, bending. Has had PT in the past, has been helpful. Difficult to get motivated to do any regular exercise except golfing and walking. Uses heating pad, ice wrap. Also c /o occasional numbness in hands, varies from thumb only to entire hand. Sleeps on side, pillow under neck and head not shoulders. Has foam roller Prior Treatments and Tests Dexa scan neck MRI: stenosis and arthritis prior chiropractor but not recently PT-OP-T Assessment and Plan Start: 02/12/24 08:02 Freq: Status: Active Protocol: Document 06/15/24 09:51 SAK (Rec: 06/15/24 10:46 SAK Laptop) Physical Therapy Assessment Goals Four Impairment weakness Short Term Goal (STG) Patient to be instructed in HEP for purposes of strengthening posterior chain musculature 03/18/24: GOAL MET STG Duration GOAL MET [employer] Goal (LTG) Patient will be independent and compliant with HEP and demonstrate improvement in strength to at least 4+/5 05/11/24: mostly met, though rhomboids 4/5, lower trap 3+/5 06/15/24: improved, rhomboids 4+ /5, lower trap 4-/5 LTG Duration 06/29/24 Three Impairment postural dysfunction with forward head, rounded shoulders Short Term Goal (STG) Patient to be instructed in neutral postural alignment and importance followed by postural correction activities and exercises and strategies for improved postural alignment statically and with functional activities 03/18/24: GOAL MET STG Duration GOAL MET [employer] Goal (LTG) Patient to be able to demonstrate good postural awareness and ability to self- correct without cues and be independent and compliant with postural correction exercises and activities 05/11/24:good goal progress 06/15/24: mostly met LTG Duration 06/29/24 Two Impairment Neck disability index score 40 % [facility] Goal (LTG) Decrease NDI to no greater than 20% as measure of improved activity tolerance and function 03/18/24: decreased to 35% 06/15/24: 27%, improved LTG Duration 06/29/24 One Impairment neck pain with radicular symptoms Short Term Goal (STG) Decrease pain and radicular symptoms by at least 50% 03/18/24: min decrease in highest level of pain but less frequent, reports exercises help, partially met 05/11/24: goal partially met STG Duration goal met [facility] Goal (LTG) Decrease pain and radicular symptoms by at least 75% with all usual activities 06/15/24: no further progress LTG Duration 06/29/24 Assessment Summary Assessment Review posterior chain strengthening exercises with cues for technique, postural correction. REviewed SCM stretch with cues for increased time and deep breathing end range. Patient has made progress toward goals but appears to be plateauing. REcommend 1 further PT treatment then discharge to independent HEP and self management. Patient in agreement. Physical Therapy Plan Frequency and Duration Frequency of Treatment 1 visit Duration of treatment (weeks) 2 Plan of Care Start Date 06/15/24 Plan of Care End Date 06/29/24 Therapeutic Interventions Therapeutic Interventions Home Exercise Program,Manual Therapy,Patient/Caregiver Education,Self-Care/Home Management,Soft Tissue Mobilization,Taping, Therapeutic Activities, Therapeutic Exercises Modalities Cold Pack/Ice Massage,Electric Stimulation,Hot Packs, Infrared Therapy,Traction- Mechanical,Ultrasound Next Visit Focus/Plan Next Note Type Treatment Note Next Visit Plan Final HEP review, assess response to cold laser and continue as tolerated. Issue any additional HEP HO. Anticipate discharge from PT. Plan of Care Dates Plan of Care Start Date 06/15/24 Plan of Care End Date 06/29/24 Electronically Signed by: Emma Sidhu, PT 06/15/24 2936 If you are in agreement with this Plan of Care, please return a signed and dated copy. I have reviewed this Plan of Care and certify that the skilled therapy services above are required to meet the patient?s needs. Physician Signature Date Printed Name and Credentials Clinical Instructor Signature Printed Name and Credentials
--- NOTE | 2024-06-22 10:22 | PT.OTN ---
Current Diagnoses Spondylosis without myelopathy or radiculopathy, cervical region (06/22/24) Radiculopathy, cervical region (06/22/24) Abnormal posture (06/22/24) Weakness (06/22/24) Physical Therapy Treatment Note PT-OP-A Visit Information Start: 02/12/24 08:02 Freq: Status: Active Protocol: Document 06/22/24 09:46 SAK (Rec: 06/22/24 09:53 SAK Laptop) Out-Patient Physical Therapy Visit Information Visit Information Visit Type Treatment Note Visit Start Time 09:47 Visit Stop Time 10:35 Visit Number 25 Number of PECAN SHELLER Visits 0 PT-OP-B Current Condition Start: 02/12/24 08:02 Freq: Status: Active Protocol: Document 04/28/24 10:40 SAK (Rec: 04/28/24 11:25 SAK [id number]) Current Condition History of Current Condition Onset Date chronic since 1989 Current Complaints neck pain, arm and hand numbness, thoracic and lumbar pain History of Current Condition chronic neck pain with radicular symptoms [place] Initially diagnosed with lateral epicondylitis, didn't look at neck. recent injection which helped a little. Prior injections in lumbar spine very help, no injections thoracic spine. Pain increases with sitting, bending. Has had PT in the past, has been helpful. Difficult to get motivated to do any regular exercise except golfing and walking. Uses heating pad, ice wrap. Also c /o occasional numbness in hands, varies from thumb only to entire hand. Sleeps on side, pillow under neck and head not shoulders. Has foam roller Prior Treatments and Tests Dexa scan neck MRI: stenosis and arthritis prior chiropractor but not recently PT-OP-C Subjective Start: 02/12/24 08:02 Freq: Status: Active Protocol: Document 06/22/24 09:46 SAK (Rec: 06/22/24 09:53 SAK Laptop) OP-PT Subjective Patient Comments Patient Comments No new c/o. Doing HEP. PT-OP-H Neuro Start: 02/12/24 08:02 Freq: Status: Active Protocol: Document 02/12/24 09:46 SAK (Rec: 02/12/24 16:10 SAK [id number]) Sensation Evaluation Gross Sensation Sensation Description Paresthesia Dermatome Impairments C5,C6 Comments Summary Comments Patient reports having more difficulty holding onto pic for playing whoactuallyr, thumb often feels numb PT-OP-J Posture/Palpation/Skin Start: 02/12/24 08:02 Freq: Status: Active Protocol: Document 02/12/24 09:46 [facility] (Rec: 02/12/24 16:10 [facility] [id number]) Posture Evaluation Position Standing Head/C-Spine Posture Forward Head T-Spine Posture Increased Kyphosis L-Spine Posture Decreased Lordosis Shoulder Posture (L) Rounded,(R) Rounded Scapula Posture (L) Protracted,(R) Protracted Arm Posture (L) Internally Rotated,(R) Internally Rotated Pelvis Posture Posterior Tilted Comments Posture Comments poor gluteal muscle tone Palpation Assessment Location c/s Palpation Findings Soft Tissue Tightness,Muscle Guarding,Tenderness PT-OP-K Range of Motion Start: 02/12/24 08:02 Freq: Status: Active Protocol: Document 02/12/24 09:46 [facility] (Rec: 02/12/24 16:10 [facility] [id number]) Cervical Spine Range of Motion Cervical Spine Active Flexion 52 Extension 40 Rotation Left 35 Rotation Right 30 Lateral Flexion Left 12 Lateral Flexion Right 44 ROM Limitations Soft Tissue Tightness, Contracture,Pain Shoulder Goniometric Range of Motion Shoulder john Shoulder ROM WFL Yes PT-OP-L Special Tests Start: 02/12/24 08:02 Freq: Status: Active Protocol: Document 02/12/24 09:46 [facility] (Rec: 02/12/24 16:10 [facility] [id number]) Special Tests Cervical Spine Special Tests Traction Test Results + Comments decrease symptoms Foraminal Compression Test Results + Comments increased tightness and pain sensation Upper Limb Tension Test Comments perform next session PT-OP-M Strength Start: 02/12/24 08:02 Freq: Status: Active Protocol: Document 02/12/24 09:46 [facility] (Rec: 02/12/24 16:10 [facility] [id number]) Cervical Spine Strength Cervical Spine Manual Muscle Testing Flexion (C1-2) 4 Good Extension 4 Good Rotation Left 4 Good Rotation Right 4 Good Lateral Flexion Left (C3) 4 Good Lateral Flexion Right (C3) 4 Good Shoulder Strength Shoulder Manual Muscle Testing Left Flexion 4 Good Extension 4 Good Abduction (C5) 4 Good Adduction 4 Good External Rotation 4- Good- Internal Rotation 4 Good Horizontal Abduction 4 Good Horizontal Adduction 4 Good Right Flexion 4 Good Extension 4 Good Abduction (C5) 4 Good Adduction 4 Good External Rotation 4- Good- Internal Rotation 4 Good Elbow/Forearm Strength Elbow and Forearm Manual Muscle Testing john Flexion (C6) 4+ Good+ Extension (C7) 4+ Good+ Pronation 4+ Good+ Supination 4+ Good+ Wrist Strength Wrist Manual Muscle Testing john Flexion (C7) 4 Good Extension (C6) 4- Good- PT-OP-Q Treatments Start: 02/12/24 08:02 Freq: Status: Active Protocol: Document 06/22/24 09:46 [facility] (Rec: 06/22/24 10:20 [facility] Laptop) Manual Therapy Treatment Consent Patient gave verbal consent for manual Yes treatment Soft Tissue Mobilization t/s Body Location ES, paraspinals Mobilization Type Myofascial Release,Rolling, Sustained Pressure,Other Intensity/Depth Moderate Body Position Prone Comments - prone over prone pillow, pillow rectangle roll under legs, detachable face cradle cushion under face. Periscapular Body Location Periscapular, Traps, Rhomboid Mobilization Type Myofascial Release Intensity/Depth Moderate Body Position Prone Comments Focus on upper thoracic CS Body Location UT, LS, CS paraspinals, SOR, SCM, scalenes Mobilization Type Myofascial Release,Rolling, Sustained Pressure Intensity/Depth Moderate Body Position Hooklying Comments x2 pillows under head for cervical alignment and wedge under knees. STMs and sustained gentle pressure PT-OP-R Modalities Start: 02/12/24 08:02 Freq: Status: Active Protocol: Document 06/22/24 09:46 [facility] (Rec: 06/22/24 10:20 [facility] Laptop) Hot Pack/Cold Pack Treatment Hot Pack Location c/s, t/s Patient Position Hooklying Patient Tolerance Good PT-OP-T Assessment and Plan Start: 02/12/24 08:02 Freq: Status: Active Protocol: Document 06/22/24 09:46 [facility] (Rec: 06/22/24 09:53 [facility] Laptop) Physical Therapy Assessment Evaluation Complexity Number of Personal Factors/Comorbidities 1-2 Number of Body Systems Impaired 3 Clinical Presentation at Evaluation Evolving Impairments Impairments Posture,ROM,Soft Tissue Mobility,Strength Goals Four Impairment weakness Short Term Goal (STG) Patient to be instructed in HEP for purposes of strengthening posterior chain musculature 03/18/24: GOAL MET STG Duration GOAL MET [employer] Design Engineer Goal (LTG) Patient will be independent and compliant with HEP and demonstrate improvement in strength to at least 4+/5 05/11/24: mostly met, though rhomboids 4/5, lower trap 3+/5 06/15/24: improved, rhomboids 4+ /5, lower trap 4-/5 LTG Duration 06/29/24 Three Impairment postural dysfunction with forward head, rounded shoulders Short Term Goal (STG) Patient to be instructed in neutral postural alignment and importance followed by postural correction activities and exercises and strategies for improved postural alignment statically and with functional activities 03/18/24: GOAL MET STG Duration GOAL MET [employer] Design Engineer Goal (LTG) Patient to be able to demonstrate good postural awareness and ability to self- correct without cues and be independent and compliant with postural correction exercises and activities 05/11/24:good goal progress 06/15/24: mostly met LTG Duration 06/29/24 Two Impairment Neck disability index score 40 % [employer]ic Design Engineer Goal (LTG) Decrease NDI to no greater than 20% as measure of improved activity tolerance and function 03/18/24: decreased to 35% 06/15/24: 27%, improved LTG Duration 06/29/24 One Impairment neck pain with radicular symptoms Short Term Goal (STG) Decrease pain and radicular symptoms by at least 50% 03/18/24: min decrease in highest level of pain but less frequent, reports exercises help, partially met 05/11/24: goal partially met STG Duration goal met [employer] Design Engineer Goal (LTG) Decrease pain and radicular symptoms by at least 75% with all usual activities 06/15/24: no further progress LTG Duration 06/29/24 Assessment Summary Assessment Patient highly compliant to HEP, postural habits some improved. Progress plateaued. Patient agreeable to discharge from PT. Physical Therapy Plan Discharge Physical Therapy Discharge Reasons Plateau in Progress
== END 2024-06-24 09:56 | disposition home or self-care (01) ==
LOC: PHYS 09:45
PROVIDERS: Family Provider Family Medicine; PCP Family Medicine; Referring Provider Physical Medicine & Rehabilitation; Visit Provider Physical Medicine & Rehabilitation
DX: M47.812 Spondylosis without myelopathy or radiculopathy, cervical region (principal); M54.12 Radiculopathy, cervical region; R29.3 Abnormal posture; R53.1 Weakness
CPT/HCPCS: 97010; 97014; 97110; 97140; 97162; 97530; 97535; G0283

== ENCOUNTER → 2024-06-29 12:59 | Outpatient (CLI) | payer MEDICARE, OTHER, SELFPAY ==
--- NOTE | 2024-06-29 13:02 | DI.RAD.S_ITS ---
PROCEDURE: XR CERVICAL SPINE 4V OR 5V INDICATIONS: NECK PAIN TECHNIQUE: 5 views of the cervical spine acquired. COMPARISON: Located Within [facility], CR, XR CERVICAL SPINE 2V OR 3V, 05/30/2020, 11:05. Located Within [facility], CR, XR CERVICAL SPINE 4V OR 5V, 07/07/2018, 17:15. FINDINGS: Bones: No fractures or dislocations to the C6 level. Straightening of the normal cervical lordosis. Decreased osseous mineralization. Oblique images demonstrate at least mild multilevel bony foraminal stenoses. There are multilevel degenerative changes of the cervical spine with facet and uncovertebral arthropathy, disc height loss with degenerative endplate changes and spurring. Soft tissues: No prevertebral soft tissue swelling. IMPRESSION: Moderate multilevel degenerative changes of the cervical spine. No acute osseous abnormalities. Dictated by: Sam Beaver M.D. on 06/29/2024 at 13:54 Approved by: Sam Beaver M.D. on 06/29/2024 at 13:55
== END ==
PROVIDERS: Family Provider Family Medicine; PCP Family Medicine; Referring Provider Family Medicine; Visit Provider Physical Medicine & Rehabilitation
DX: M54.12 Radiculopathy, cervical region (principal); M47.812 Spondylosis without myelopathy or radiculopathy, cervical region
CPT/HCPCS: 72050

== ENCOUNTER → 2024-11-15 08:26 | Outpatient (CLI) | payer MEDICARE, OTHER, SELFPAY ==
[2024-11-15 09:15] LABS: Add Manual Diff / Slide Review NO; Hematocrit 44.9 % (41-53); Hemoglobin 15.7 g/dL (13.5-17.5); Lymphocytes Absolute Auto 2000 /uL (1100-4500); Mean Corpuscular HGB Conc 34.9 % (30-36); Mean Corpuscular Hemoglobin 32.4 PG (26-34); Mean Corpuscular Volume 92.8 fL (80-100); Platelet Count 254 X10^3/uL (150-400)
[2024-11-15 09:23] LABS: Microalbumi Creatinin Ratio Ur 85.0 ug/mg CR (<30)
[2024-11-15 09:39] LABS: Alanine Aminotransferase 31 IU/L (<50); Albumin 4.8 g/dL (3.5-5.0); Albumin Globulin Ratio 2.0 (1.0-2.8); Alkaline Phosphatase 104 U/L (38-126); Blood Urea Nitrogen 6 mg/dL (9-20); Calcium 9.9 mg/dL (8.4-10.2); Carbon Dioxide 26 mmol/L (22-32); Chloride 97 mmol/L (98-107); Cholesterol 139 mg/dL (140-199); Estimated Glomerular Filt Rate > 60 mL/min (>60); Globulin 2.4 g/dL (1.7-4.1); Glucose 95 mg/dL (70-99); HDL Cholesterol 51 mg/dL (40-60); HEMOLYSIS < 15 (0-50); Potassium 5.1 mmol/L (3.4-5.1); Sodium 133 mmol/L (137-145); Total Protein 7.2 g/dL (6.3-8.2); Triglycerides 93 mg/dL (35-150)
[2024-11-15 09:53] LABS: Vitamin D 25 Hydroxy (D3) 46.7 ng/mL (30.0-100.0)
[2024-11-15 10:07] LABS: TSH w/ Reflex to FT4 0.74 uIU/mL (0.47-4.68)
== END ==
PROVIDERS: PCP Family Medicine; Referring Provider Family Medicine; Visit Provider Family Medicine
DX: E55.9 Vitamin D deficiency, unspecified (principal); E78.2 Mixed hyperlipidemia; Z12.5 Encounter for screening for malignant neoplasm of prostate; F17.200 Nicotine dependence, unspecified, uncomplicated; I73.9 Peripheral vascular disease, unspecified; I25.10 Atherosclerotic heart disease of native coronary artery without angina pectoris; M06.9 Rheumatoid arthritis, unspecified
CPT/HCPCS: 36415; 80053; 80061; 82043; 82306; 82570; 84443; 85025; G0103

== ENCOUNTER → 2025-01-18 13:19 | Outpatient (CLI) | payer MEDICARE, OTHER, SELFPAY | PROVIDERS: PCP Family Medicine; Referring Provider Urology; Visit Provider Urology | DX: N40.1 Benign prostatic hyperplasia with lower urinary tract symptoms (principal); N13.8 Other obstructive and reflux uropathy | CPT/HCPCS: 87086 ==